=== PATIENT | female | born 1935 | race Caucasian/White ===

== ENCOUNTER 2023-09-29 12:40 | Inpatient (IN) | payer MEDICARE, SELFPAY ==
[2023-09-29 12:46] VITALS: BP 156/68; PULSE 70; RESP 16; TEMP 36.6; O2SAT 94; BMI 16.1
--- NOTE | 2023-09-29 12:47 | ED.VIS.FALL ---
HPI HPI - Fall History of Present Illness Chief Complaint: Fall Detail of Chief Complaint: Mechanical fall with injury to left elbow/forearm and complains of pain pel Informant: patient Occured/Mechanism Occurred: Hours Mechanism/Context: Yes trip Usually ambulates: Cane Pain/Injury Location: Pelvis Quality of Pain: Dull and Aching Current Severity: Mild Maximum Severity: Mild Worsened by: Slightly worse with palpation Relieved by: Nothing Associated Symptoms Associated Symptoms: Negative for Parasthesias, Weakness, Loss of function, Inability to ambulate, Loss of consciousness or Amnesia Narrative Narrative: Patient is 88-year-old woman. She and her recently moved from [place]. She grew up in [place]. They are returning to a assisted living facility. She states she did not hit her head. She denies neck pain. She denies left or right upper extremity pain. She denies pain in her right ankle, knee or hip. She denies headache. Denies visual, ocular auditory symptoms. She denies cardiac or respiratory symptoms. Tetanus Immunization: Unknown Prior similar symptoms: No Recent Illness/Hospitalization: No PFSH PFSH Medical History (Updated 09/29/23 @ 13:[address] Grant Whitley MD) Brain bleed CHF (congestive heart failure) Fall Presence of combination internal cardiac defibrillator (ICD) and pacemaker Allergy/AdvReac Type Severity Reaction Status Date / Time [id number] Reductase AdvReac Mild muscle Verified 09/29/23 12:42 Inhibitor aches Surgical History (Updated 09/29/23 @ 12:43 by Vania Hines) Stented coronary artery Social History Smoking Status: Never smoker ROS ROS ED Constitutional Constitutional ED: Denies chills or fever(s) Eyes Eyes: Denies blurry vision, change in vision or diplopia Cardiovascular Cardiovascular: Denies chest pain Respiratory/Chest Respiratory/Chest: Denies dyspnea Gastrointestinal Gastrointestinal: Denies nausea or vomiting Musculoskeletal Musculoskeletal: Denies back pain or neck pain Integumentary Reports other Details: Skin tear x 2 lateral left elbow. Neurologic Neurologic: Denies paresthesias or weakness Hematologic/Lymphatic Hematologic/Lymphatic: Denies easy bleeding or easy bruising EXAM Physical Exam Const Vital Signs: 09/29/23 12:46 09/29/23 12:49 Temperature 97.9 F Temperature Source Oral Pulse Rate 70 Respiratory Rate 16 Respiratory Effort Normal Non-Labored Respiratory Depth Normal Respiratory Pattern Normal Blood Pressure 156/68 H Blood Pressure Mean 97 Pulse Ox 94 Oxygen Delivery Method Room Air Positive well nourished and well developed General Appearance ED: well developed and NAD HEENT Reports normocephalic and TM's normal bilaterally atraumatic Eyes PERRL and EOMs intact bilaterally General Eye ED: Negative for pale conjunctiva or scleral icterus Neck full ROM and no lymphadenopathy Chest Wall inspection of chest normal Resp normal respiratory effort, no retractions and clear to auscultation bilaterally Cardio regular rate, regular rhythm, S1 normal heart sound, S2 normal heart sound and no murmurs Extremity Extremity Narrative: Skin tear that is 3 cm in diameter and 3.5 cm in diameter. The skin was unrolled and covered the defect. Nurse will apply appropriate dressing. Neuro oriented x3, CN's II-XII intact bilaterally, moves all extremities, no focal motor deficits and no sensory deficits noted Neuro Narrative: Patient has no clonus or Babinski sign. Renee Coma Scale: document GCS findings Spontaneous Obeys Commands Oriented 15 Sensorium / Orientation: alert Psych mental status grossly normal and thought process normal Skin Skin Narrative: Skin tear previously documented. MDM MDM MDM Narrative Medical decision making narrative: Will obtain x-ray of the pelvis and she has pain outpatient over the pubic symphysis region. There is no pain with logrolling of the right or left lower extremity. Tetanus was updated. Radiography Chest X-Ray - ED: 1 View and Read by ED Physician (Independently reviewed interpreted by me as negative for fracture. The femoral neck appears normal as well.) Discharge Plan Triage Chief Complaint: Fall ED Provider: Grant Whitley Dx/Rx/DC Orders Clinical Impression: Injury due to fall, ISTAP type 3 skin tear of left elbow, Contusion of pelvic region Instructions: Bruises (Contusions), ED Skin Tear (Skin Avulsion) Primary Care Provider: NOT,DEFINED Referrals: Viet Lovett MD [Non-Staff] - 3-5 Days NOT,DEFINED [Primary Care Provider] - Disposition Disposition: Home, Self Care
--- NOTE | 2023-09-29 12:54 | RAD_ITS ---
STUDY: X-RAY - PELVIS REASON FOR EXAM: Female, 88 years old. Injury/Pain -- Pain to palpation proximity of the pubic symphysis TECHNIQUE: One view of the pelvis was obtained. COMPARISON: None. FINDINGS: There is a normal bowel gas pattern. There is abundant stool. Normal visualized soft tissue structures. There is diffuse demineralization of the osseous structures. Normal bilateral iliac wings, sacroiliac joints and visualized sacrum. Normal visualized bilateral superior and inferior pubic rami. Normal pubic symphysis. Normal ischial tuberosities. Normal visualized right femoral head. Normal right acetabulum. Normal right hip joint. There are osteoarthritic changes of the left femoral head with marginal osteophyte formation. There is left femoral neck fracture with impaction and displacement of 0.7 cm. Normal left acetabulum. Normal left hip joint. RAD/Pelvis 1 or 2 Views IMPRESSION: Left femoral neck fracture. Electronically Signed: Enrrique Carty MD at 13:16 EDT ,
[2023-09-29] MEDS: Diphth,Pertuss(Acell),Tet Vac 0.5 ML Vial IM (12:56)
--- NOTE | 2023-09-29 13:33 | EKG12_ITS ---
Test Reason : Blood Pressure : / mmHG Vent. Rate : 070 BPM Atrial Rate : 070 BPM P-R Int : 190 ms QRS Dur : 148 ms QT Int : 496 ms P-R-T Axes : 000 -61 064 degrees QTc Int : 535 ms AV dual-paced rhythm Biventricular pacemaker detected Abnormal ECG Confirmed by JASBIR ZAZUETA, ANNELISE ([id number]), associate editor JC HAWKINS ([id number]) on 10/01/2023 9:43:24 AM Referred By: Confirmed By:ANNELISE MARTELL MD
--- NOTE | 2023-09-29 14:07 | HP.PCM.HOS_ITS ---
[facility] - General General Date of Admission: 09/29/23 Date of Service: 09/29/23 Chief Complaint: Fall with Left Hip Fracture. [facility] Narrative SHERRIE LOZANO, is a 88 F with a past medical history of essential hypertension, hyperlipidemia; with intolerance to statins, history of CAD; s/p stent, history of CHF; on Farxiga, history of arrhythmia on Amiodarone; s/p PPM/AICD, OA, legally blind and history of ICH; after fall (~6 weeks ago) with subsequent severe photosensitivity who presents to [facility] ER complaining of fall with Left hip fracture. Ms. Lozano reports her symptoms began approximately one hour prior to arrival when she lost her balance after her Left knee buckled and then gave out while she was using a walker to ambulate resulting in a mechanical fall with patient landing on her Left hip, elbow and forearm with LUE skin tears and subsequent inability to ambulate. She denies significant head trauma or LOC with her fall but she does admit to worsening pain with movement. She denies associated headache, chest pain, diaphoresis, nausea, vomiting, diaphoresis or other recent illness other than h er ICH after a fall ~6 weeks ago; with subsequent photosensitivity. She typically ambulates with a cane. Both the patient and her recently moved her from [place], [place] since she grew up in [place], [place]. In the ER her X-rays were positive for a Left femoral neck fracture with clinical evidence of Left lateral elbow skin tears x 2 and she was then admitted to the general medical floor for ongoing care for a stay that is expected to be greater than 48 hours. [facility] Medical History Brain bleed CHF (congestive heart failure) Fall ICD (implantable cardioverter-defibrillator) in place Legally blind Pacemaker Presence of combination internal cardiac defibrillator (ICD) and pacemaker Home Medications amiodarone 100 mg tablet 100 mg PO DAILY heart failure 09/29/23 [History Last Taken 09/29/23] aspirin 81 mg tablet,delayed release 81 mg PO DAILY cardiac 09/29/23 [History Last Taken 09/29/23] dapagliflozin propanediol 10 mg tablet (Farxiga) 10 mg PO DAILY renal failure 09/29/23 [History Last Taken 09/29/23] furosemide 40 mg tablet 40 mg PO DAILY heart failure 09/29/23 [History Last Taken 09/29/23] magnesium sulfate 100 mg capsule 400 mg PO DAILY muscle cramps 09/29/23 [History Last Taken 09/29/23] metoprolol succinate 25 mg tablet,extended release 24 hr 12.5 mg PO DAILY BP 09/29/23 [History Last Taken 09/29/23] sacubitril 24 mg-valsartan 26 mg tablet (Entresto) 1 tab PO BID heart 09/29/23 [History Last Taken 09/29/23] Allergy/AdvReac Type Severity Reaction Status Date / Time [id number] Reductase AdvReac Mild muscle Verified 09/29/23 12:42 Inhibitor aches Surgical History Stented coronary artery Social History Smoking Status: Never smoker ROS ROS Narrative Review of systems: Constitutional: Patient denies fever or chills. Eyes: Patient admits to severe photosensitivity since her fall with ICH and she is legally blind as per HPI but she denies acute visual changes or discharge from eyes. ENT: Patient denies runny nose, sore throat or ear pain. CV: Patient denies chest pain, palpitations or heart racing. Pulm: Patient denies SOB or cough. GI: Patient denies nausea, vomiting, diarrhea or constipation. MSK: Patient admits to Left hip pain made worse with movement as per HPI. Skin: Patient admits to skin tears x 2 to the Left lateral elbow. Neuro: Patient denies headache, paresthesias or photosensitivity. Hematology: Patient denies easy bleeding or easy bruisability. Allergy: Patient denies lip swelling, tongue swelling or urticaria. Psychology: Patient denies symptoms related to uncontrolled depression or anxiety. 14 point ROS otherwise negative except for positives noted above in HPI. Vital Signs Vital Signs Vital Signs: 09/29/23 12:46 09/29/23 12:49 Temperature 97.9 F Temperature Source Oral Pulse Rate 70 Respiratory Rate 16 Respiratory Effort Normal Non-Labored Respiratory Depth Normal Respiratory Pattern Normal Blood Pressure 156/68 H Blood Pressure Mean 97 Pulse Ox 94 Oxygen Delivery Method Room Air Weight Weight: 91 lb 0.815 oz Body Mass Index (BMI) 16.1 Physical Exam Const alert, oriented x3, no apparent distress, average body habitus and healthy appearing General Appearance: cooperative HEENT normocephalic, head/scalp atraumatic, hearing grossly normal bilaterally and moist oral mucous membranes Eyes PERRL and EOMs intact bilaterally Neck no lymphadenopathy and supple Resp normal respiratory effort, no retractions, no use of accessory muscles and clear to auscultation bilaterally Cardio regular rate and regular rhythm GI normal to inspection, nondistended, normoactive bowel sounds, soft to palpation, non-tender and non-distended Extremity normal to inspection and full ROM Skin Skin Narrative: Patient has a Left pelvic contusion and Left lateral elbow skin tears x 2. Neuro oriented x3, CN's II-XII intact bilaterally, moves all extremities and no focal motor deficits Sensorium / Orientation: awake, alert, oriented to person, oriented to place and oriented to time Speech: speech normal Motor Exam: strength 5/5 throughout Psych affect normal Results Medical Records Data Attestation: I reviewed the patient's medical records Lab / Micro Data Attestation: I reviewed the patient's lab results. 09/29/23 14:20 09/29/23 14:20 Imaging Radiology Impression Pelvis X-Ray 09/29/23 12:54 IMPRESSION: Left femoral neck fracture. Electronically Signed: Enrrique Carty MD at 13:16 EDT Reading Location ID and State: [address] [place] [address] , Service support , Assessment & Plan Assessment/Plan (1) Fracture of femoral neck, left, closed: QUALIFIERS: Encounter type: initial encounter Qualified Code(s): S72.002A - Fracture of unspecified part of neck of left femur, initial encounter for closed fracture (2) Contusion of pelvic region: QUALIFIERS: Encounter type: initial encounter Qualified Code(s): S30.0XXA - Contusion of lower back and pelvis, initial encounter (3) ISTAP type 3 skin tear of left elbow: (4) Injury due to fall: QUALIFIERS: Encounter type: initial encounter Qualified Code(s): W19.XXXA - Unspecified fall, initial encounter (5) 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 Left Femoral Neck Fracture after Mechanical Fall with pelvic contusion and Left lateral elbow skin tears x 2 - Admit to general medical floor. Place Drake and keep on strict bedrest. Give Tylenol prn for [id number] (level 1- 5/10) pain or fever. Give Morphine IV prn for severe (level 6-10/10) pain. Give Flexeril 5 mg PO TID prn for muscle spasms. Finally, the orthopedic [facility] on-call has been contacted by the ED physician with ORIF planned for at 8:00 AM tomorrow with help appreciated in advance. 2. History of ICH; after fall (~6 weeks ago) with subsequent severe photosensitivity complicating #1 - Noted. We will avoid preoperative blood thinners to minimize risk of recurrence. 3. Essential Hypertension - Continue home regimen plus give prn IV hydralazine for systolic blood pressure > 160 mmHg. 4. Hyperlipidemia; with intolerance to statins - Check Lipid Profile. 5. History of CAD; s/p stent - Noted. 6. History of CHF - Stable with no evidence of acute flare at this time. 7. History of arrhythmia; s/p PPM/AICD - Stable. 8. OA - Stable. Give Tylenol prn. 9. DVT prophylaxis - We will avoid preoperative blood thinners in patient's with traumatic fracture due to increased risk of bleeding complications. SCD on RLE only. Postoperative DVT prophylaxis to be chosen by orthopod. Total time: Approximately 55 minutes. Charges/Coding Visit Charges Inpatient E&M: 96011 Init Hosp L2
[2023-09-29] MEDS: Morphine 2 MG/ML Syringe IV ×2 (14:15→18:16)
[2023-09-29] MEDS: Ondansetron 4 MG/2 ML Vial IV (14:15)
[2023-09-29] MEDS: 0.9% Normal Saline (1000mL) 1,000 ML 150 ML IV (14:16)
--- NOTE | 2023-09-29 14:24 | ED.RN ---
per Dr. Yoder, OR tomorrow at 0800
--- NOTE | 2023-09-29 14:25 | RAD_ITS ---
STUDY: X-RAY CHEST REASON FOR EXAM: Female, 88 years old. Preop clearance , hip fracture TECHNIQUE: Single frontal view of the chest. COMPARISON: None. FINDINGS: Dual chamber pacemaker device on the left in satisfactory position. The lungs are clear and expanded. There is no demonstrated pleural abnormality. There is moderate cardiac enlargement. There are coronary endovascular stents. Normal mediastinum and aggie. Normal visualized pulmonary arteries. There is atherosclerotic calcification of the aortic arch. There is demineralization of the osseous structures. Normal visualized ribs, clavicles, and shoulders. There is no demonstrated abnormality of the visualized soft tissue structures of the upper abdomen. RAD/Chest 1 View (Portable) IMPRESSION: Cardiac enlargement. No focal infiltrate. Electronically Signed: Enrrique Carty MD at 14:48 EDT ,
--- NOTE | 2023-09-29 14:25 | RAD_ITS ---
STUDY: X-RAY - PELVIS AND LEFT HIP REASON FOR EXAM: Female, 88 years old. Injury/Pain TECHNIQUE: 2 views of the pelvis and hip. COMPARISON: None. FINDINGS: There is a normal bowel gas pattern. There is abundant stool. Normal visualized soft tissue structures. There is diffuse demineralization of the osseous structures. Normal bilateral iliac wings, sacroiliac joints and visualized sacrum. Normal visualized bilateral superior and inferior pubic rami. Normal pubic symphysis. Normal ischial tuberosities. Normal visualized right femoral head. Normal right acetabulum. Normal right hip joint. There are osteoarthritic changes of the left femoral head with marginal osteophyte formation. There is left femoral neck fracture with impaction and displacement of 0.7 cm. Normal left acetabulum. Normal left hip joint. RAD/HIP, UNI W/ Pelvis 2-3 Views IMPRESSION: Left femoral neck fracture. Electronically Signed: Enrrique Carty MD at 14:49 EDT ,
--- NOTE | 2023-09-29 14:27 | ED.RN ---
PT MEDICATED PER REQUEST BRENNAN CASAS, DELAY IN ABILITY TO GAIN IV ACCESS.IV ESTABLISHED, PT MEDICATED
[2023-09-29 14:31] LABS: Absolute Lymphocyte Count 1.31 X10^3/uL (0.83-4.51); Absolute Neutrophil Count 4.8 X10^3/uL (2.0-7.7); Basophil# 0.02 X10^3/uL; Basophil% 0.3 % (0-1); Eosinophil# 0.11 X10^3/uL; Eosinophils% 1.6 % (0-5); Hematocrit 45.6 % (37-47); Hemoglobin 14.8 g/dL (12.0-15.0); Lymphocyte # 1.31 X10^3/ul (0.83-4.51); Lymphocyte % 19.6 % (19-41); Mean Corp Hgb Conc 32.5 g/dL (32-36); Mean Corpuscular Hgb 30.6 pg (27.0-32.0); Mean Corpuscular Volume 94.4 fL (81-99); Mean Platelet Vol. 9.9 fl (6.2-12.0); Monocyte# 0.39 X10^3/uL; Monocyte% 5.8 % (0-10); NRBC Flagged by Analyzer 0 % (0-5); Neutrophil % 71.8 % (47-70); Platelet Count 314 K/mm3 (150-450); RBC Distribution Width CV 15.9 % (11.6-14.6); RBC Distribution Width SD 55.5 fl (35.1-43.9); Red Blood Count 4.83 M/mm3 (4.2-5.4); White Blood Count 6.7 K/mm3 (4.4-11.0)
[2023-09-29 14:46] VITALS: BP 163/70; PULSE 70; RESP 14; TEMP 36.7; O2SAT 99
[2023-09-29 15:01] LABS: Anion Gap 3 (5-15); BUN 36 mg/dL (7-18); Calcium,Total 9.6 mg/dL (8.5-10.1); Chloride 106 mmol/L (98-107); EST Glomerular Filtration Rate 56 mL/min (>60); Est Glom Filt Rate - Afr Amer 67 mL/min (>60); Estimated Creatinine Clearance 25.84 ml/min; Glucose 93 mg/dL (74-106); Potassium 4.9 mmol/L (3.5-5.1); Sodium Level 140 mmol/L (136-145)
[2023-09-29 15:25] VITALS: BMI 17.4
[2023-09-29 15:30] VITALS: BP 130/60; PULSE 70; RESP 18; TEMP 36.9; O2SAT 93
[2023-09-29] MEDS: Acetaminophen 325 MG Tablet 650 MG PO (15:50)
[2023-09-29] MEDS: 0.9% Normal Saline (1000mL) 1,000 ML 70 ML IV (15:50)
[2023-09-29 18:10] VITALS: BP 133/63; PULSE 69; RESP 18; TEMP 37.3; O2SAT 93
[2023-09-29] MEDS: 0.9% Saline Lock 10 ML Syringe IV (18:16)
[2023-09-29 20:05] LABS: Cholesterol 195 mg/dL (200); High Density Lipoprotein 54 mg/dL; Triglycerides 87 mg/dL; Very Low Density Lipoprotein 17 mg/dL (5-40)
[2023-09-29] MEDS: HYDROmorphone 0.5 MG/0.5 ML SYRINGE IV (20:57)
[2023-09-29 21:30] VITALS: BP 112/58; PULSE 62; RESP 16; TEMP 36.6; O2SAT 93
[2023-09-29] MEDS: Acetaminophen 500 MG Tablet 1000 MG PO (21:45)
[2023-09-29] MEDS: oxyCODONE 5 MG Tablet PO (23:23)
[2023-09-30] VITALS (14 sets, daily range): BP systolic 100–149; BP diastolic 50–75; PULSE 69–92; RESP 14–18; TEMP 36.4–37; O2SAT 85–97; BMI 17.4
[2023-09-30] MEDS: 0.9% Normal Saline (1000mL) 1,000 ML 70 ML IV (04:13)
[2023-09-30 04:50] LABS: Absolute Lymphocyte Count 0.99 X10^3/uL (0.83-4.51); Absolute Neutrophil Count 6.4 X10^3/uL (2.0-7.7); Basophil# 0.04 X10^3/uL; Basophil% 0.5 % (0-1); Eosinophil# 0.11 X10^3/uL; Eosinophils% 1.3 % (0-5); Hematocrit 41.6 % (37-47); Hemoglobin 12.8 g/dL (12.0-15.0); Lymphocyte # 0.99 X10^3/ul (0.83-4.51); Mean Corp Hgb Conc 30.8 g/dL (32-36); Mean Corpuscular Hgb 30.3 pg (27.0-32.0); Mean Corpuscular Volume 98.3 fL (81-99); Mean Platelet Vol. 9.7 fl (6.2-12.0); Monocyte# 0.65 X10^3/uL; Monocyte% 7.9 % (0-10); NRBC Flagged by Analyzer 0 % (0-5); Neutrophil # 6.42 X10^3/uL (2.7-7.7); Neutrophil % 77.8 % (47-70); Platelet Count 257 K/mm3 (150-450); RBC Distribution Width CV 16.6 % (11.6-14.6); RBC Distribution Width SD 60.2 fl (35.1-43.9); Red Blood Count 4.23 M/mm3 (4.2-5.4); White Blood Count 8.3 K/mm3 (4.4-11.0)
[2023-09-30 05:41] LABS: ALB/GLOB Ratio 0.9 RATIO (0.9-2.4); AST(SGOT) 20 U/L (15-37); Alanine Aminotransfer ALT/SGPT 23 U/L (13-56); Albumin, Serum 2.9 g/dL (3.2-5.0); Alkaline Phosphatase 68 U/L (45-117); Anion Gap 2 (5-15); BUN 35 mg/dL (7-18); BUN/Creat Ratio 35.4 RATIO (10-20); Calcium,Total 8.5 mg/dL (8.5-10.1); Chloride 112 mmol/L (98-107); Creatinine, Serum 0.99 mg/dL (0.55-1.02); EST Glomerular Filtration Rate 56 mL/min (>60); Est Glom Filt Rate - Afr Amer 68 mL/min (>60); Estimated Creatinine Clearance 28.12 ml/min; Globulin 3.2 g/dL (2.2-4.2); Glucose 122 mg/dL (74-106); Magnesium 2.9 mg/dL (1.6-2.6); Phosphorus 3.8 mg/dL (2.5-4.9); Potassium 4.6 mmol/L (3.5-5.1); Protein, Total 6.1 g/dL (6.4-8.2); Sodium Level 140 mmol/L (136-145)
--- NOTE | 2023-09-30 07:46 | NURSING ---
talked with housekeeping laundry worker Daniel regarding in ability to obtain any information regarding patient's defibulator/pacer.
--- NOTE | 2023-09-30 07:52 | PN.HOSP_ITS ---
Reason for Visit Reason for Visit: Diagnoses Contusion of lower back and pelvis, initial encounter (09/29/23) Laceration without foreign body of left elbow, initial encounter (09/29/23) Fracture of unspecified part of neck of left femur, initial encounter for closed fracture (09/29/23) Unspecified fall, initial encounter (09/29/23) Personal history of other diseases of the circulatory system (09/29/23) Presence of automatic (implantable) cardiac defibrillator (09/29/23) Objective Data Objective Data Vital Signs: Vital Signs Temp Pulse Resp BP Pulse Ox O2 Del Method 97.8 F 70 16 132/63 H 97 Room Air 09/30/23 03:00 09/30/23 03:00 09/30/23 03:00 09/30/23 03:00 09/30/23 03:00 09/30/23 03:00 Oxygen Delivery Method Room Air Weight: 98 lb 1.691 oz Body Mass Index (BMI) 17.4 Intake & Output: Intake and Output for Last 24 Hours 09/28/23 09/29/23 09/30/23 23:59 23:59 23:59 Intake Total 235 / 235 866.83 / 866.83 Output Total 300 / 550 500 / 500 Balance -65 / -315 366.83 / 366.83 Lab / Micro Data 09/30/23 04:32 09/30/23 04:32 Labs: Laboratory Results - last 24 hr 09/29/23 14:20: WBC 6.7, RBC 4.83, Hgb 14.8, Hct 45.6, MCV 94.4, MCH 30.6, MCHC 32.5, RDW Std Deviation 55.5 H, RDW Coeff of Marie 15.9 H, Plt Count 314, MPV 9.9, Immature Gran % (Auto) 0.900, Neut % (Auto) 71.8 H, Lymph % (Auto) 19.6, [place] % (Auto) 5.8, Eos % (Auto) 1.6, Baso % (Auto) 0.3, Absolute Neuts (auto) 4.8, Absolute Lymphs (auto) 1.31, Nucleated RBC % 0, Sodium 140, Potassium 4.9, Chloride 106, Carbon Dioxide 31.0, Anion Gap 3 L, BUN 36 H, Creatinine 1.00, Estim Creat Clear Calc 25.84, Est GFR (MDRD) Af Amer 67, Est GFR (MDRD) Non-Af 56 L, BUN/Creatinine Ratio 36.0 H, Glucose 93, Calcium 9.6, Blood Type O POSITIVE, Antibody Screen NEGATIVE 09/29/23 19:00: Triglycerides 87, Cholesterol 195, LDL Cholesterol 124, VLDL Cholesterol 17, HDL Cholesterol 54 09/30/23 04:32: WBC 8.3, RBC 4.23, Hgb 12.8, Hct 41.6, MCV 98.3, MCH 30.3, MCHC 30.8 L D, RDW Std Deviation 60.2 H, RDW Coeff of Marie 16.6 H, Plt Count 257, MPV 9.7, Immature Gran % (Auto) 0.500, Neut % (Auto) 77.8 H, Lymph % (Auto) 12.0 L, [place] % (Auto) 7.9, Eos % (Auto) 1.3, Baso % (Auto) 0.5, Absolute Neuts (auto) 6.4, Absolute Lymphs (auto) 0.99, Nucleated RBC % 0, Sodium 140, Potassium 4.6, Chloride 112 H, Carbon Dioxide 26.0, Anion Gap 2 L, BUN 35 H, Creatinine 0.99, Estim Creat Clear Calc 28.12, Est GFR (MDRD) Af Amer 68, Est GFR (MDRD) Non-Af 56 L, BUN/Creatinine Ratio 35.4 H, Glucose 122 H, Calcium 8.5, Phosphorus 3.8, Magnesium 2.9 H, Total Bilirubin 0.60, AST 20, ALT 23, Alkaline Phosphatase 68, Total Protein 6.1 L, Albumin 2.9 L, Globulin 3.2, Albumin/Globulin Ratio 0.9 Radiography Diagnostic Testing: Radiology Impression Pelvis X-Ray 09/29/23 12:54 IMPRESSION: Left femoral neck fracture. Electronically Signed: Enrrique Carty MD at 13:16 EDT , Chest X-Ray 09/29/23 14:25 IMPRESSION: Cardiac enlargement. No focal infiltrate. Electronically Signed: Enrrique Carty MD at 14:48 EDT , Hip/Pelvis X-Ray 09/29/23 14:25 IMPRESSION: Left femoral neck fracture. Electronically Signed: Enrrique Carty MD at 14:49 EDT , Physical Exam Narrative Seen and examined. History was taken from the patient and Dr. Júnior Hays who is POA. Patient is stated she fell down walking on walker with left knee buckling. She denies LOC or head injury. Complain of pain over the distal half of thigh not at hip joint. Physical exam General: Alert, Oriented x3, Cooperative HEENT: Atraumatic, PERRLA, EOMI, Normocephalic. Photosensitivity Oral: Oral mucosa dry. No Gingival or Mucosal Lesions/ Ulcerations Neck: Supple, No JVD, Negative Carotid Bruits Chest wall/Lungs: Air entry diminished in bilateral lung bases. No crepitation/rhonchi Cardiovascular: Regular rate, Regular Rhythm, Normal S1, Normal S2, No M/G/R Abdomen: Bowel Sounds Present, Soft, Non Tender, Non-Distended : No dysuria. No renal angle tenderness. No suprapubic tenderness. Extremities: No edema, Capillary Refill Less than 3 Seconds Skin: Left pelvic contusion and Left lateral elbow, 2 skin tears. No active bleeding Musculoskeletal: LLE externally rotated flexed and abducted. Tenderness present on the greater trochanter and posterior aspect of hip. Neurological: Cranial nerves II-XII grossly intact, DTR 2+/4. No acute focal neurological deficit. Psych/Mental Status: Flat affect. Mild cognitive deficits. Assessment & Plan Assessment/Plan (1) Fracture of femoral neck, left, closed: QUALIFIERS: Encounter type: initial encounter Qualified Code(s): S72.002A - Fracture of unspecified part of neck of left femur, initial encounter for closed fracture (2) Contusion of pelvic region: QUALIFIERS: Encounter type: initial encounter Qualified Code(s): S30.0XXA - Contusion of lower back and pelvis, initial encounter (3) ISTAP type 3 skin tear of left elbow: (4) Presence of combination internal cardiac defibrillator (ICD) and pacemaker: PLAN: Plan 88-year-old female was admitted to [facility] floor after she lost her balance, left knee buckled and gave out while using walker to ambulate resulting in mechanical fall on left hip elbow and forearm. She was found left hip fracture on imaging 1. Left Femoral Neck Fracture, impacted with mild displacement due to mechanical Fall with pelvic contusion and Left lateral elbow skin tears x 2 - Admit to general medical floor. Has Drake catheter. Give Tylenol prn for [id number] (level 1-5/10) pain or fever. Give Morphine IV prn for severe (level 6-10/10) pain. Give Flexeril 5 mg PO TID prn for muscle spasms. Hip and pelvis x-ray directly reviewed. Left humeral neck fracture with impaction with mild displacement 0.7 cm. Normal left acetabulum. 09/29: Perioperative surgical risk calculated. Patient within average risk of serious complication, any complication, return to the OR and discharged to SNF. Patient is above average for pneumonia, UTI, sepsis and dehydration. Overall patient has 4 MET functional activity doing her most of the work herself on walker. She is moderate perioperative risk for medical and surgical complications Patient is scheduled for orthopedic surgery finally, the orthopedic surgeon on- call has been contacted by the ED physician with ORIF planned for at 8:00 AM tomorrow with help appreciated in advance. 2. History of ICH; after fall (~6 weeks ago) with subsequent severe photosensitivity. Hold preoperative blood thinners to minimize risk of recurrence. 3. Essential Hypertension - Continue home regimen plus give prn IV hydralazine for systolic blood pressure > 160 mmHg. 4. Hyperlipidemia; with intolerance to statins -fasting profile within normal limit. LDL 124, HDL 54. Triglycerides 87. 5. History of CAD; s/p stent - Noted. Chest x-ray initially reviewed and shows AICD, triple lead. No pulmonary venous congestion or pulmonary edema. Patient does not have chest pain or shortness of breath. Twelve-lead EKG was reviewed shows AV dual paced rhythm at 70 bpm. QRS and QTc prolonged expected from defibrillator. 6. History of CHF - Stable with no evidence of acute flare at this time. Chronic systolic heart failure as per history from POA, Dr. Júnior Hays which states he has EF about 30%. No documentation available. She moved from [place] and has not established treatment supervisor here but planning to establish with Dr. Hawthorne. Clinically, not in acute heart failure. 2D echo ordered for tomorrow 7. History of arrhythmia; s/p PPM/AICD -no acute issues 8. OA - Stable. Give Tylenol prn. 9. DVT prophylaxis - We will avoid preoperative blood thinners in patient's with traumatic fracture due to increased risk of bleeding complications. SCD on RLE only. Postoperative DVT prophylaxis to be chosen by orthopod. Laboratory Results 09/29/23 14:20: WBC 6.7, RBC 4.83, Hgb 14.8, Hct 45.6, MCV 94.4, MCH 30.6, MCHC 32.5, RDW Std Deviation 55.5 H, RDW Coeff of Marie 15.9 H, Plt Count 314, MPV 9.9, Immature Gran % (Auto) 0.900, Neut % (Auto) 71.8 H, Lymph % (Auto) 19.6, [place] % (Auto) 5.8, Eos % (Auto) 1.6, Baso % (Auto) 0.3, Absolute Neuts (auto) 4.8, Absolute Lymphs (auto) 1.31, Nucleated RBC % 0, Sodium 140, Potassium 4.9, Chloride 106, Carbon Dioxide 31.0, Anion Gap 3 L, BUN 36 H, Creatinine 1.00, Estim Creat Clear Calc 25.84, Est GFR (MDRD) Af Amer 67, Est GFR (MDRD) Non-Af 56 L, BUN/Creatinine Ratio 36.0 H, Glucose 93, Calcium 9.6, Blood Type O POSITIVE, Antibody Screen NEGATIVE 09/29/23 19:00: Triglycerides 87, Cholesterol 195, LDL Cholesterol 124, VLDL Cholesterol 17, HDL Cholesterol 54 09/30/23 04:32: WBC 8.3, RBC 4.23, Hgb 12.8, Hct 41.6, MCV 98.3, MCH 30.3, MCHC 30.8 L D, RDW Std Deviation 60.2 H, RDW Coeff of Marie 16.6 H, Plt Count 257, MPV 9.7, Immature Gran % (Auto) 0.500, Neut % (Auto) 77.8 H, Lymph % (Auto) 12.0 L, [place] % (Auto) 7.9, Eos % (Auto) 1.3, Baso % (Auto) 0.5, Absolute Neuts (auto) 6.4, Absolute Lymphs (auto) 0.99, Nucleated RBC % 0, Sodium 140, Potassium 4.6, Chloride 112 H, Carbon Dioxide 26.0, Anion Gap 2 L, BUN 35 H, Creatinine 0.99, Estim Creat Clear Calc 28.12, Est GFR (MDRD) Af Amer 68, Est GFR (MDRD) Non-Af 56 L, BUN/Creatinine Ratio 35.4 H, Glucose 122 H, Calcium 8.5, Phosphorus 3.8, Magnesium 2.9 H, Total Bilirubin 0.60, AST 20, ALT 23, Alkaline Phosphatase 68, Total Protein 6.1 L, Albumin 2.9 L, Globulin 3.2, Albumin/Globulin Ratio 0.9 Clinical Impression(s) from Imaging Studies Pelvis X-Ray 09/29/23 12:54 IMPRESSION: Left femoral neck fracture. Electronically Signed: Enrrique Carty MD at 13:16 EDT , Chest X-Ray 09/29/23 14:25 IMPRESSION: Cardiac enlargement. No focal infiltrate. Electronically Signed: Enrrique Carty MD at 14:48 EDT Reading Location ID and State: [facility] / [place] , Service support , Hip/Pelvis X-Ray 09/29/23 14:25 IMPRESSION: Left femoral neck fracture. Electronically Signed: Enrrique Carty MD at 14:49 EDT , Charges/Coding Addendum Addendum: Total time of the visit including total time spent in counseling or coordination of care, (more than 50% of the total time, spent in obtaining medical informat ion from nurses and other ancillary care providers,explaining to the patient about labs, imaging, diagnosis and management of active complex medical conditions), discussion with the POA, orthopedic surgery, review of labs and imaging is 40 minutes. Visit Charges Inpatient E&M: 57402 Subs Hosp L3
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
[2023-09-30] MEDS: Furosemide 40 MG Tablet PO (08:33)
[2023-09-30] MEDS: Metoprolol(XL)Succ 25 MG Tablet 12.5 MG PO (08:33)
[2023-09-30] MEDS: oxyCODONE 5 MG Tablet PO (08:33)
[2023-09-30] MEDS: Amiodarone 200 MG Tablet 100 MG PO (08:33)
--- NOTE | 2023-09-30 10:46 | CON.PCM_ITS ---
Assessment & Plan Assessment/Plan (1) Fracture of femoral neck, closed: QUALIFIERS: Encounter type: initial encounter Laterality: left Qualified Code(s): S72.002A - Fracture of unspecified part of neck of left femur, initial encounter for closed fracture PLAN: Plan Discussion was had with the patient regards to her left femoral neck fracture risk benefits alternatives of the surgery were reviewed including risk of bleeding infection nerve artery tissue damage need for further surgery continued pain and postoperative expectations she wishes to proceed with left hip hemiarthroplasty and informed consent was signed, antibiotics and tranexamic acid were ordered on-call to the OR. HPI Consult Data Date of Consult: 09/30/23 HPI Narrative HPI Narrative: SHERRIE HUMMEL, is a 88 F community ambulator with walker who lives with her who presents after ground-level fall where her knee buckled landing onto her left hip immediately had significant groin pain and inability ambulate x- rays taken in the emergency room department demonstrated displaced femoral neck fracture. [facility] Medical History Brain bleed CHF (congestive heart failure) Fall ICD (implantable cardioverter-defibrillator) in place Legally blind Pacemaker Presence of combination internal cardiac defibrillator (ICD) and pacemaker Home Medications amiodarone 100 mg tablet 100 mg PO DAILY heart failure 09/29/23 [History Last Taken 09/29/23] aspirin 81 mg tablet,delayed release 81 mg PO DAILY cardiac 09/29/23 [History Last Taken 09/29/23] dapagliflozin propanediol 10 mg tablet (Farxiga) 10 mg PO DAILY renal failure 09/29/23 [History Last Taken 09/29/23] furosemide 40 mg tablet 40 mg PO DAILY heart failure 09/29/23 [History Last Taken 09/29/23] magnesium sulfate 100 mg capsule 400 mg PO DAILY muscle cramps 09/29/23 [History Last Taken 09/29/23] metoprolol succinate 25 mg tablet,extended release 24 hr 12.5 mg PO DAILY BP 09/29/23 [History Last Taken 09/29/23] sacubitril 24 mg-valsartan 26 mg tablet (Entresto) 1 tab PO BID heart 09/29/23 [History Last Taken 09/29/23] Allergy/AdvReac Type Severity Reaction Status Date / Time [id number]-[id number] Reductase AdvReac Mild muscle Verified 09/29/23 12:42 Inhibitor aches Surgical History Stented coronary artery Social History Smoking Status: Never smoker Physical Exam Const alert, oriented x3 and no apparent distress Extremity Extremity Narrative: Positive logroll. There is mild swelling about the knee no joint effusion nontender she is nontender in her thigh or leg or ankle she is able to plantarflex dorsiflex her ankle intact sensation to light touch, patient is very frail skin Lab / Micro Data 09/30/23 04:32 09/30/23 04:32 Labs: Laboratory Results - last 24 hr 09/29/23 14:20: WBC 6.7, RBC 4.83, Hgb 14.8, Hct 45.6, MCV 94.4, MCH 30.6, MCHC 32.5, RDW Std Deviation 55.5 H, RDW Coeff of Marie 15.9 H, Plt Count 314, MPV 9.9, Immature Gran % (Auto) 0.900, Neut % (Auto) 71.8 H, Lymph % (Auto) 19.6, [place] % (Auto) 5.8, Eos % (Auto) 1.6, Baso % (Auto) 0.3, Absolute Neuts (auto) 4.8, Absolute Lymphs (auto) 1.31, Nucleated RBC % 0, Sodium 140, Potassium 4.9, Chloride 106, Carbon Dioxide 31.0, Anion Gap 3 L, BUN 36 H, Creatinine 1.00, Estim Creat Clear Calc 25.84, Est GFR (MDRD) Af Amer 67, Est GFR (MDRD) Non-Af 56 L, BUN/Creatinine Ratio 36.0 H, Glucose 93, Calcium 9.6, Blood Type O POSITIVE, Antibody Screen NEGATIVE 09/29/23 19:00: Triglycerides 87, Cholesterol 195, LDL Cholesterol 124, VLDL Cholesterol 17, HDL Cholesterol 54 09/30/23 04:32: WBC 8.3, RBC 4.23, Hgb 12.8, Hct 41.6, MCV 98.3, MCH 30.3, MCHC 30.8 L D, RDW Std Deviation 60.2 H, RDW Coeff of Marie 16.6 H, Plt Count 257, MPV 9.7, Immature Gran % (Auto) 0.500, Neut % (Auto) 77.8 H, Lymph % (Auto) 12.0 L, [place] % (Auto) 7.9, Eos % (Auto) 1.3, Baso % (Auto) 0.5, Absolute Neuts (auto) 6.4, Absolute Lymphs (auto) 0.99, Nucleated RBC % 0, Sodium 140, Potassium 4.6, Chloride 112 H, Carbon Dioxide 26.0, Anion Gap 2 L, BUN 35 H, Creatinine 0.99, Estim Creat Clear Calc 28.12, Est GFR (MDRD) Af Amer 68, Est GFR (MDRD) Non-Af 56 L, BUN/Creatinine Ratio 35.4 H, Glucose 122 H, Calcium 8.5, Phosphorus 3.8, Magnesium 2.9 H, Total Bilirubin 0.60, AST 20, ALT 23, Alkaline Phosphatase 68, Total Protein 6.1 L, Albumin 2.9 L, Globulin 3.2, Albumin/Globulin Ratio 0.9 Imaging Radiology Impression Pelvis X-Ray 09/29/23 12:54 IMPRESSION: Left femoral neck fracture. Electronically Signed: Enrrique Carty MD at 13:16 EDT Reading Location ID and State: [address] [place] [address] , Service support , Chest X-Ray 09/29/23 14:25 IMPRESSION: Cardiac enlargement. No focal infiltrate. Electronically Signed: Enrrique Carty MD at 14:48 EDT Reading Location ID and State: [address] [place] [address] , Service support , Hip/Pelvis X-Ray 09/29/23 14:25 IMPRESSION: Left femoral neck fracture. Electronically Signed: Enrrique Carty MD at 14:49 EDT Reading Location ID and State: [address] [place] [address] , Service support ,
[2023-09-30] MEDS: Cefazolin 2 GM in 0.9% Normal Saline (100mL Bag) 100 ML IV (11:00)
--- NOTE | 2023-09-30 11:02 | NURSING ---
Pt sent to OR
[2023-09-30] MEDS: TRANEXAMIC ACID 1,000 MG in 0.9% Normal Saline (100mL Bag) 100 ML 440 MG IV (11:15)
--- NOTE | 2023-09-30 12:43 | ECHOD_ITS ---
Reason For Study: Dyspnea/SOB Procedure This was a 2D Doppler, Color Flow transthoracic echocardiogram. Exam performed portable in patient room. Left Ventricle Normal LV size. The estimated ejection fraction is 40-45 %. There is evidence of diastolic dysfunction. Hypokinesis of the apex, lateral wall and posterior salazar. Right Ventricle Normal RV size. ICD or pacer leads identified within the right ventricle. Normal systolic function. Atria The left and right atria are normal. ICD or pacer leads identified within the right atrium. No doppler evidence for ASD. Mitral Valve There is no mitral valve stenosis. No mitral valve insufficiency. Tricuspid Valve There is no tricuspid stenosis. Trivial tricuspid valve insufficiency. Pulmonary artery systolic pressure is 45 mmHg. Aortic Valve Trisinus/trileaflet aortic valve. Aortic sclerosis, no stenosis. There is no aortic stenosis. Mild (1+) aortic valve insufficiency. Pulmonic Valve There is no pulmonic valvular stenosis. Trivial pulmonic valve insufficiency. Great Vessels Normal aortic root. Pericardium/Pleural No pericardial effusion. MMode/2D Measurements & Calculations LVIDd: 4.4 cm IVSd: 1.4 cm Ao root diam: 3.2 cm LVIDs: 3.8 cm LVPWd: 1.4 cm LA dimension: 3.0 cm RVDd: 4.5 cm FS: 12.8 % LAV(MOD-bp): 42.4 ml LA A4 area: 16.2 cm2 RA A4 area: 14.5 cm2 LAV(MOD-bp) Indexed: 29.7 ml/m2 LAV(MOD-sp2): 41.0 ml LAV(MOD-sp4): 41.5 ml TAPSE: 2.0 cm Time Measurements MV dec time: 0.34 sec Doppler Measurements & Calculations MV E max nic: 50.9 cm/sec Lat Peak E' Nic: 4.0 cm/sec Med Peak E' Nic: 5.6 cm/sec MV A max nic: 110.0 cm/sec E/E' lat: 12.6 E/E' med: 9.0 MV E/A: 0.46 MV V2 max: 134.7 cm/sec MV P1/2t max nic: 65.3 cm/sec Ao V2 max: 183.9 cm/sec MV max P.3 mmHg MV P1/2t: 125.2 msec Ao max P.5 mmHg MV V2 mean: 65.4 cm/sec Ao V2 mean: 137.5 cm/sec MV mean P.1 mmHg MV dec slope: 152.8 cm/sec2 Ao mean P.5 mmHg MV V2 VTI: 29.5 cm MVA(P1/2t): 1.8 cm2 Ao V2 VTI: 45.0 cm AV (velocity ratio): 0.40 AI max nic: 383.0 cm/sec LV V1 max: 78.8 cm/sec PA V2 max: 70.3 cm/sec AI max P.7 mmHg LV V1 max P.5 mmHg PA V2 mean: 50.8 cm/sec LV V1 mean P.5 mmHg AI dec slope: 314.2 cm/sec2 LV V1 mean: 57.2 cm/sec AI P1/2t: 357.0 msec LV V1 VTI: 18.1 cm TR max nic: 315.4 cm/sec TR max P.8 mmHg ECHO/Echo Complete Interpretation Summary The estimated ejection fraction is 40-45 %. There is evidence of diastolic dysfunction. Mild (1+) aortic valve insufficiency. Hypokinesis of the apex, lateral wall and posterior salazar Ordering Physician: Anson Waite Performed By: Vipul Sotelo RCS
--- NOTE | 2023-09-30 12:59 | PCM.OP.BLANK ---
Operative Report Preoperative diagnosis: Left hip femoral neck fracture displaced Postoperative diagnosis: Same Procedure: Left hip hemiarthroplasty Implants: [place] Accolade II stem size 2 132 degree neck angle 0 neck length 50 mm outer diameter bipolar head Anesthesia: General l EBL: 150 cc Complications: None Condition: Stable to PACU Indication for procedure: This is a 88-year-old female patient with ground-level fall sustaining a left femoral neck fracture that was displaced. plans for definitive hemiarthroplasty were discussed including risks benefits and alternatives of the procedure were reviewed with the patient including risk of bleeding infection nerve artery tissue damage need for further surgery continue pain postoperative hip precaution restrictions leg length discrepancy and dislocation. Procedure: Patient was met in the preoperative holding area once again the operative extremity was identified by both patient and physician and was marked. Patient was met by anesthesia and brought to the operating room where anesthesia was started . The patient was then positioned in the lateral decubitus position on a well-padded pegboard with an axillary roll. All bony prominences were checked and padded. The patient was prepped and draped in the usual sterile fashion. A timeout was called to ensure the proper patient procedure and extremity were being contemplated. Anatomic landmarks were palpated and marked for a standard posterior lateral approach. A timeout was called to ensure the proper patient procedure and extremity were being contemplated. A 10 blade scalpel was used to make a posterior incision through the skin and subcutaneous tissue. In retractors were used and electrocautery was used to maintain meticulous hemostasis and dissect full-thickness flaps until the gluteal fascia was reached. The gluteal fascia was incised in line with the gluteal fibers. The bursal tissue was then freed from the underside and a Charnley retractor was placed. The fatpad was elevated off of the external rotators with electrocautery and the external rotators were dissected off of the greater trochanter including the piriformis and were tagged with #1 Ethibond for later repair. The joint capsule opened with posterior trapdoor technique. A femoral neck cutting guide was used to teresa the neck with a Bovie and an oscillating saw was used to complete the femoral neck cut. the fracture was visualized and with the use of a corkscrew and a skid the femoral head was removed and sized. We then trialed with the matching sizes . Hohmann was placed around the lesser trochanter. A femoral elevator was used. As well as a pointed wide Hohmann around the lesser trochanter and a Hohmann to help retract the gluteus medius. A box chisel was used to remove excess lateral neck followed by a canal finder and a lateralizing reamer. This was followed by sequential broaches. Attention was made of the version within the canal. Once the final broach was seated we then trialed and reduced the hip it was determined that a 132 degree neck angle with a 0 neck length was the appropriate size. We then checked stability with shuck testing as well as flexion and interminal rotation then proceeded with hip extension and checked leg lengths at the knees and heels. At this point trials were removed. The femoral stem was inserted. We re-trialed and then proceeded to impact the femoral head onto the Benedict taper. We then surgically reduce the hip check stability again and leg lengths and were satisfied. irricept rinse was allowed to sit for 1 minutes while everyone changed their gloves. Thorough irrigation was performed. Followed by closure of the external rotators with #2 FiberWire followed by closure of gluteal fascia with #1 Ethibond. 0 Vicryl fat stitches and 2-0 Vicryl subcutaneous stitches and juan in the skin. Dressing was applied in the form of silverlon dressing and an abduction pillow was placed. Patient tolerated the procedure well there was no intraoperative complications all counts were correct and the patient was brought back to the PACU in stable condition
--- NOTE | 2023-09-30 13:10 | RAD_ITS ---
STUDY: X-RAY - PELVIS AND LEFT HIP REASON FOR EXAM: Female, 88 years old. Postop from hip replacement surgery TECHNIQUE: 2 views of the pelvis and hip. COMPARISON: Yesterday FINDINGS: Patient is postop from left hip replacement surgery. Components demonstrate anatomic alignment. No plain film evidence of postoperative complication. Normal postoperative soft tissue swelling and subcutaneous emphysema. Right hip shows anatomic alignment with age consistent degenerative narrowing RAD/Hip Min 2 Views (Portable) IMPRESSION: Replaced left hip joint demonstrates anatomic alignment, no plain film evidence of postoperative complications Electronically Signed: Bryan Tran MD at 13:37 EDT ,
[2023-09-30] MEDS: Lactated Ringers 1,000 ML 60 ML IV (13:43)
[2023-09-30 14:17] LABS: Bedside Glucose 92 mg/dL (74-106)
[2023-09-30] MEDS: 0.9% Saline Lock 10 ML Syringe IV (14:20)
[2023-09-30] MEDS: Cefazolin 1 GM/50 ML BAG IV ×2 (14:20→20:59)
[2023-09-30] MEDS: Calcium Carbonate 500 MG Tablet PO (16:17)
--- NOTE | 2023-09-30 20:00 | NURSING ---
pt very confused at this time. po 85% on ra. 02 at 2lnc applied. po back up to 100%
[2023-09-30] MEDS: Acetaminophen 500 MG Tablet 1000 MG PO (20:59)
[2023-10-01] VITALS (8 sets, daily range): BP systolic 111–139; BP diastolic 45–64; PULSE 67–70; RESP 16–18; TEMP 36.4–36.8; O2SAT 93–100; BMI 18.1
--- NOTE | 2023-10-01 | HIP_PTH ---
PATIENT: SHERRIE HUMMEL LOC: [facility]3 U#:[id number] AGE/SX: 88/F ROOM: MI325 RE09/29/[address]: Dr. Tammi Frost DO : 1935 BED: 1 DIS: 10/10/2023 SPEC #: [id number] RECD: 10/01/23 08:25 STATUS: JULIANN MOCK #: [id number] GARRETT: 10/01/23 00:[address]: mAol Yoder DEPT: SURGICAL PATHOLOGY RECD BY: Leonardo Whelan ENTERED: 10/01/23 10:55 SP TYPE: TOTAL HIP OTHR DR: DO Dr. Anson Ledbetter MD Dr. William Lago, MD Tissues: Hip, NOS Procedures: Decalcification bone/plaque Surgery Specimen Level IV Comments: @ Ordering doctor for DEC edited from to @ by BRENTON at 10/01/23 1125 @ Ordering doctor for SUIV edited from to @ by BRENTON at 10/01/23 1125 @ Submitting doctor edited from to @ by BRENTON at 10/01/23 1125 HEADER OPERATION: Hemiarthroplasty, hip PRE-OP DIAGNOSIS: Fracture of femoral neck, left, closed TISSUE SUBMITTED: Femoral head MICROSCOPIC DIAGNOSIS Bone and tissue of left hip, total hip resection: Severe degenerative joint disease. Consistent with organizing fracture callus. AM:mr 10/05/23 MICROSCOPIC DESCRIPTION Slides are reviewed. GROSS DESCRIPTION Received is one container labeled with the patient's name and designated femoral head and tissue. The specimen consists of a garcia femoral head measuring 5.0 x 5.0 x 4.3 cm. The articular surface is smooth. The non-articular surface is hemorrhagic and irregular and consistent with fracture sight. Resection margin is irregular and hemorrhagic. Also present in the specimen container are multiple detached pieces of bone measuring in aggregate 4.0 x 4.0 x 0.9cm. Also present in the container is a piece of soft tissue measuring 4.0 x 3.0 x 1.2 cm. Sugar Presser sections are submitted in three cassettes as follows: 1 - soft tissue, 2 &3- bone after decalcification. AM/mr 10/02/23 TC: 5 CPT: 14999, 33127
[2023-10-01] MEDS: Cefazolin 1 GM/50 ML BAG IV (05:01)
[2023-10-01] MEDS: Acetaminophen 500 MG Tablet 1000 MG PO ×3 (05:02→21:30)
[2023-10-01 06:22] LABS: Absolute Lymphocyte Count 0.67 X10^3/uL (0.83-4.51); Absolute Neutrophil Count 8.4 X10^3/uL (2.0-7.7); Basophil# 0.01 X10^3/uL; Basophil% 0.1 % (0-1); Hematocrit 40.7 % (37-47); Hemoglobin 12.8 g/dL (12.0-15.0); Lymphocyte # 0.67 X10^3/ul (0.83-4.51); Lymphocyte % 6.6 % (19-41); Mean Corp Hgb Conc 31.4 g/dL (32-36); Mean Corpuscular Hgb 30.3 pg (27.0-32.0); Mean Corpuscular Volume 96.4 fL (81-99); Mean Platelet Vol. 10.4 fl (6.2-12.0); Monocyte# 0.92 X10^3/uL; Monocyte% 9.1 % (0-10); NRBC Flagged by Analyzer 0 % (0-5); Neutrophil # 8.44 X10^3/uL (2.7-7.7); Neutrophil % 83.6 % (47-70); Platelet Count 236 K/mm3 (150-450); RBC Distribution Width CV 16.3 % (11.6-14.6); RBC Distribution Width SD 58.4 fl (35.1-43.9); Red Blood Count 4.22 M/mm3 (4.2-5.4); White Blood Count 10.1 K/mm3 (4.4-11.0)
[2023-10-01] MEDS: oxyCODONE 5 MG Tablet PO (06:35)
[2023-10-01] MEDS: APIXABAN 2.5 MG TABLET (WCH) PO ×2 (06:35→21:29)
[2023-10-01 06:44] LABS: Anion Gap 5 (5-15); BUN 30 mg/dL (7-18); BUN/Creat Ratio 27.8 RATIO (10-20); Calcium,Total 9.2 mg/dL (8.5-10.1); Chloride 109 mmol/L (98-107); Creatinine, Serum 1.08 mg/dL (0.55-1.02); EST Glomerular Filtration Rate 51 mL/min (>60); Est Glom Filt Rate - Afr Amer 62 mL/min (>60); Estimated Creatinine Clearance 26.94 ml/min; Glucose 141 mg/dL (74-106); Potassium 4.5 mmol/L (3.5-5.1); Sodium Level 140 mmol/L (136-145)
[2023-10-01] MEDS: Calcium Carbonate 500 MG Tablet PO ×3 (07:58→18:00)
[2023-10-01] MEDS: Aspirin E.C. 81 MG Tablet PO (07:58)
[2023-10-01] MEDS: Magnesium Chloride 64 MG Delay Rel.Tablet 128 MG PO (07:58)
[2023-10-01] MEDS: Metoprolol(XL)Succ 25 MG Tablet 12.5 MG PO (07:59)
[2023-10-01] MEDS: Cholecalciferol (VIT D3) 25 MCG TABLET (1,000 UNITS) PO (08:00)
[2023-10-01] MEDS: Amiodarone 200 MG Tablet 100 MG PO (08:01)
[2023-10-01] MEDS: Furosemide 40 MG Tablet PO (08:05)
--- NOTE | 2023-10-01 11:42 | PN.ORTHO_ITS ---
Subjective Subjective Seen and examined. Pain controlled denies any fevers chills nausea vomiting shortness of breath or chest pain has ambulated with physical therapy. Had some confusion postoperatively that has resolved Objective Data Objective Data Vital Signs: Vital Signs Temp Pulse Resp BP Pulse Ox O2 Del Method O2 Flow Rate 98.3 F 69 18 139/64 H 98 Room Air 2 10/01/23 09:00 10/01/23 09:00 10/01/23 09:00 10/01/23 09:00 10/01/23 09:00 10/01/23 09:00 10/01/23 01:28 Oxygen Flow Rate (L/min) 2 Oxygen Delivery Method Room Air Weight: 102 lb 8.239 oz Body Mass Index (BMI) 18.1 Intake & Output: Intake and Output for Last 24 Hours 09/29/23 09/30/23 10/01/23 23:59 23:59 23:59 Intake Total 235 / 235 1891.00 / 1891.00 1050 / 1050 Output Total 300 / 550 1250 / 1250 300 / 300 Balance -65 / -315 641.00 / 641.00 750 / 750 Medical Nutrition Assessment Dietitian: Malnutrition Criteria Met Start: 09/30/23 15:18 Freq: Status: Active Protocol: Document 09/30/23 15:18 RMA (Rec: 09/30/23 15:18 RMA [id number]) Nutrition Malnutrition Evidence of Malnutrition Exists Yes Malnutrition (severe): Chronic Evidenced By Suboptimal Energy Intake ( Severe),Weight Loss (Moderate) ,Physical Changes (Moderate) Intake Problem Inadequate Oral Intake Etiology related to surgery Signs/Symptoms as evidenced by NPO Status Active Problem Clinical Problem Chronic Disease or Condition Related Malnutrition Etiology suspect severe protein-calorie malnutrition in the context of chronic disease and debility related to inadequate oral/energy intake Signs/Symptoms as evidenced by BMI 17.4, ~5-6 % unintentional weight loss in undetermined timeframe, PO meeting <50% estimated nutrition needs x 1 month and moderate to severe muscle wasting/fat depletion in the clavicle, arms and legs; pt is currently NPO for surgery Status Active Problem Recommendation Dietitian Recommendations/Changes Recommend advance diet as tolerated to liberalized regular/no added salt. Recommend 120mL ensure plus HP 3 times per day w/ medpass as diet advanced post-op. Additional ONS as PO established with meals. Lab / Micro Data 10/01/23 06:02 10/01/23 06:02 Labs: Laboratory Results - last 24 hr 09/30/23 13:59: POC Glucose 92 10/01/23 06:02: WBC 10.1, RBC 4.22, Hgb 12.8, Hct 40.7, MCV 96.4, MCH 30.3, MCHC 31.4 L, RDW Std Deviation 58.4 H, RDW Coeff of Marie 16.3 H, Plt Count 236, MPV 10.4, Immature Gran % (Auto) 0.600, Neut % (Auto) 83.6 H, Lymph % (Auto) 6.6 L, [place] % (Auto) 9.1, Eos % (Auto) 0.0, Baso % (Auto) 0.1, Absolute Neuts (auto) 8.4 H, Absolute Lymphs (auto) 0.67 L, Nucleated RBC % 0, Sodium 140, Potassium 4.5, Chloride 109 H, Carbon Dioxide 26.0, Anion Gap 5, BUN 30 H, Creatinine 1.08 H, Estim Creat Clear Calc 26.94, Est GFR (MDRD) Af Amer 62, Est GFR (MDRD) Non- Af 51 L, BUN/Creatinine Ratio 27.8 H, Glucose 141 H, Calcium 9.2 Radiography Diagnostic Testing: Radiology Impression Hip X-Ray 09/30/23 13:10 IMPRESSION: Replaced left hip joint demonstrates anatomic alignment, no plain film evidence of postoperative complications Electronically Signed: Bryan Tran MD at 13:37 EDT Reading Location ID and State: [address] [place] [address] , Service support , Physical Exam Const alert, oriented x3 and no apparent distress Extremity Extremity Narrative: Dressing clean dry intact compartments soft neurovascular intact EHL tibialis anterior gastrocsoleus intact sensation light touch 2 out of 4 pedal pulse Assessment & Plan Assessment/Plan (1) S/P hip hemiarthroplasty: PLAN: Plan Postop day 1 left hip hemiarthroplasty for displaced femoral neck fracture PT OT weightbearing as tolerated precautions DVT prophylaxis SCDs KIMI hose Eliquis 2.5 mg twice daily for 3 weeks Pain control oxycodone and Tylenol Will likely benefit from rehab or transitional care Dressing to be left undisturbed for 7 days postop then removed and cleaned daily with antibacterial soap and warm water and replace daily after that point. Follow-up in the office 2 weeks for staple removal wound check if patient is at a [facility] rehab or TCU I am happy to see her there instead. Call with any questions or concerns
--- NOTE | 2023-10-01 11:57 | CASEMGMT ---
BRENNAN DING Assessment Face to Face with patient for initial transition planning/care coordination assessment. BRENNAN DING introduced self and role at [facility], pt voices understanding. Pt is A&Ox3 and is resting comfortably in the chair and is calm. Care providers, pharmacy, and demographics verified. Admitting dx: Lt femoral Neck Fracture after Mechanical fall PCP: Rachell Specialists: ANIYA Preferred Pharmacy: [facility] Pres[facility] Benefit: Yes LNOK: Júnior Hays (Nephew and states POA), Magdalena Hays (Júnior's ) Living Arrangements: Pt states that she lives in the independent aspect of [facility] with her who requires assistance at home. Pt states that their room has a flat entrance. ADLs/IADLs: Requires assistance. also requires help Transportation: Pt states [employer], neighbor, son DME: Cane, FWW, Pulse Ox, BP Cuff, walk-in shower with GB and seat HHC/SNF: States history with [facility]. States HHC history but is unsure of the agency. Denies ever being admitted to the skilled aspect of a SNF. Pt?s goal: SNF for further rehab Plan: Pt 6-Click is 8. Therapy evals are pending but at this time the pt states that she is agreeable to go to a SNF for further rehab. BRENNAN Pinon CM made aware and states that she will update SW. CHIQUI to follow for safe DC from [facility]. Mukesh Rodriges RN, CM
--- NOTE | 2023-10-01 13:40 | CASEMGMT ---
Addendum entered by Ofelia Kim 10/01/23 15:03: Hospital exemption started BERNARDINO Loving Original Note: Social Work- SW met with pt to discuss FOC following d/c. A list of SNF providers including quality and resource use data and consistent with the patient?s preferred geographic region, medical needs, and insurance network were provided from the [facility]. Pt states that she believes [facility] would be the best option, but to check with niece, Magdalena. SW called Magdalena who also stated [facility] would be FOC d/t pt spouse potentially being located there d/t declining independence. SW completed referral to [facility]. Plan: [facility]; pending acceptance BERNARDINO Loving
--- NOTE | 2023-10-01 15:40 | CHAPLAIN ---
Type of Pastoral Visit _x__ Initial Visit ___ Follow-up Visit ___ On-call Visit ___ General Patient Visit ___ Spiritual Assessment ___ Family Conference ___ Bereavement ___ Rapid Response ___ Code Blue ___ Other (describe below) Pastoral Care Referral From _x__ Patient ___ Family ___ Nurse ___ Physician ___ Crossing [place] ___ Fuel Efficient Automobile Designer ___ Other (describe below) Sacrament/Intervention _x__ Active listening ___ Anointing ___ Pentecostalism ___ Bereavement ___ Communion ___ Molly exploration ___ _x__ Life review _x__ Prayer ___ Reconciliation ___ Sacrament of Sick _x__ Supportive presence ___ Wedding ___ Other (describe below) Pastoral Comments
--- NOTE | 2023-10-01 16:32 | PN.HOSP_ITS ---
Reason for Visit Reason for Visit: Diagnoses Contusion of lower back and pelvis, initial encounter (09/29/23) Laceration without foreign body of left elbow, initial encounter (09/29/23) Fracture of unspecified part of neck of left femur, initial encounter for closed fracture (09/29/23) Unspecified fall, initial encounter (09/29/23) Personal history of other diseases of the circulatory system (09/29/23) Presence of automatic (implantable) cardiac defibrillator (09/29/23) Presence of unspecified artificial hip joint (09/29/23) Objective Data Objective Data Vital Signs: Vital Signs Temp Pulse Resp BP Pulse Ox O2 Del Method O2 Flow Rate 97.5 F L 67 18 114/45 L 98 Room Air 2 10/01/23 15:15 10/01/23 15:15 10/01/23 15:15 10/01/23 15:15 10/01/23 15:15 10/01/23 15:00 10/01/23 01:28 Oxygen Flow Rate (L/min) 2 Oxygen Delivery Method Room Air Weight: 102 lb 8.239 oz Body Mass Index (BMI) 18.1 Intake & Output: Intake and Output for Last 24 Hours 09/29/23 09/30/23 10/01/23 23:59 23:59 23:59 Intake Total 235 / 235 1891.00 / 1891.00 1550 / 1550 Output Total 300 / 550 1250 / 1250 300 / 300 Balance -65 / -315 641.00 / 641.00 1250 / 1250 Medical Nutrition Assessment Dietitian: Malnutrition Criteria Met Start: 09/30/23 15:18 Freq: Status: Active Protocol: Document 09/30/23 15:18 RMA (Rec: 09/30/23 15:18 RMA [id number]) Nutrition Malnutrition Evidence of Malnutrition Exists Yes Malnutrition (severe): Chronic Evidenced By Suboptimal Energy Intake ( Severe),Weight Loss (Moderate) ,Physical Changes (Moderate) Intake Problem Inadequate Oral Intake Etiology related to surgery Signs/Symptoms as evidenced by NPO Status Active Problem Clinical Problem Chronic Disease or Condition Related Malnutrition Etiology suspect severe protein-calorie malnutrition in the context of chronic disease and debility related to inadequate oral/energy intake Signs/Symptoms as evidenced by BMI 17.4, ~5-6 % unintentional weight loss in undetermined timeframe, PO meeting <50% estimated nutrition needs x 1 month and moderate to severe muscle wasting/fat depletion in the clavicle, arms and legs; pt is currently NPO for surgery Status Active Problem Recommendation Dietitian Recommendations/Changes Recommend advance diet as tolerated to liberalized regular/no added salt. Recommend 120mL ensure plus HP 3 times per day w/ medpass as diet advanced post-op. Additional ONS as PO established with meals. Lab / Micro Data 10/01/23 06:02 10/01/23 06:02 Labs: Laboratory Results - last 24 hr 10/01/23 06:02: WBC 10.1, RBC 4.22, Hgb 12.8, Hct 40.7, MCV 96.4, MCH 30.3, MCHC 31.4 L, RDW Std Deviation 58.4 H, RDW Coeff of Marie 16.3 H, Plt Count 236, MPV 10.4, Immature Gran % (Auto) 0.600, Neut % (Auto) 83.6 H, Lymph % (Auto) 6.6 L, [place] % (Auto) 9.1, Eos % (Auto) 0.0, Baso % (Auto) 0.1, Absolute Neuts (auto) 8.4 H, Absolute Lymphs (auto) 0.67 L, Nucleated RBC % 0, Sodium 140, Potassium 4.5, Chloride 109 H, Carbon Dioxide 26.0, Anion Gap 5, BUN 30 H, Creatinine 1.08 H, Estim Creat Clear Calc 26.94, Est GFR (MDRD) Af Amer 62, Est GFR (MDRD) Non- Af 51 L, BUN/Creatinine Ratio 27.8 H, Glucose 141 H, Calcium 9.2 Radiography Diagnostic Testing: Radiology Impression Echocardiogram 09/30/23 12:43 Interpretation Summary The estimated ejection fraction is 40-45 %. There is evidence of diastolic dysfunction. Mild (1+) aortic valve insufficiency. Hypokinesis of the apex, lateral wall and posterior salazar Ordering Physician: Anson Waite Performed By: Vipul Sotelo, ANTHONY Physical Exam Narrative Seen and examined. Patient is postop day 1. Had surgery on 09/30/2023. Patient voiding urine. Had bowel movement yesterday after surgery. Physical exam General: Alert, Oriented x3, Cooperative HEENT: Atraumatic, PERRLA, EOMI, Normocephalic. Photosensitivity Oral: Oral mucosa dry. No Gingival or Mucosal Lesions/ Ulcerations Neck: Supple, No JVD, Negative Carotid Bruits Chest wall/Lungs: Air entry diminished in bilateral lung bases. No crepitation/rhonchi Cardiovascular: Regular rate, Regular Rhythm, Normal S1, Normal S2, systolic murmur LLSB. Abdomen: Bowel Sounds Present, Soft, Non Tender, Non-Distended : No dysuria. No renal angle tenderness. No suprapubic tenderness. Extremities: No edema, Capillary Refill Less than 3 Seconds Skin: Left pelvic contusion and Left lateral elbow, 2 skin tears. No active bleeding Musculoskeletal: Status post left hip hemiarthroplasty. Up and out of bed. Surgical dressing dry. Neurological: Cranial nerves II-XII grossly intact, DTR 2+/4. No acute focal neurological deficit. Psych/Mental Status: Flat affect. Mild cognitive deficits. Assessment & Plan Assessment/Plan (1) Fracture of femoral neck, left, closed: QUALIFIERS: Encounter type: initial encounter Qualified Code(s): S72.002A - Fracture of unspecified part of neck of left femur, initial encounter for closed fracture (2) Contusion of pelvic region: QUALIFIERS: Encounter type: initial encounter Qualified Code(s): S30.0XXA - Contusion of lower back and pelvis, initial encounter (3) ISTAP type 3 skin tear of left elbow: (4) Presence of combination internal cardiac defibrillator (ICD) and pacemaker: PLAN: Plan 88-year-old female was admitted to [facility] floor after she lost her balance, left knee buckled and gave out while using walker to ambulate resulting in mechanical fall on left hip elbow and forearm. She was found left hip fracture on imaging 1. Left Femoral Neck Fracture, impacted with mild displacement due to mechanical Fall with pelvic contusion and Left lateral elbow skin tears x 2 - Admit to general medical floor. Has Drake catheter. Give Tylenol prn for [id number] (level 1-5/10) pain or fever. Give Morphine IV prn for severe (level 6-10/10) pain. Give Flexeril 5 mg PO TID prn for muscle spasms. Hip and pelvis x-ray directly reviewed. Left humeral neck fracture with impaction with mild displacement 0.7 cm. Normal left acetabulum. 09/29: Perioperative surgical risk calculated. Patient within average risk of serious complication, any complication, return to the OR and discharged to SNF. Patient is above average for pneumonia, UTI, sepsis and dehydration. Overall patient has 4 MET functional activity doing her most of the work herself on walker. She is moderate perioperative risk for medical and surgical complications Patient is scheduled for orthopedic surgery finally, the orthopedic surgeon on- call has been contacted by the ED physician with ORIF planned for at 8:00 AM to morgan with help appreciated in advance. 09/30: Patient physically doing well with PT and OT. Out of bed to chair. Surgical dressing dry. Labs reviewed. Postop x-ray shows left hip joint anato chantelle alignment. No radiological evidence of postoperative complication. Discussed with the rehabilitation case coordinator to start for precertification/authorization for SNF CKD stage IIIb: BUNs/creatinine 30/1.08. Creatinine on admission 1.0. No major significant difference. Estimated creatinine clearance around 45-50 mill per minute mL due to her increased age. Hyperglycemia: Glucose is elevated in BMP, 141 mg/dL. No history of diabetes mellitus. A1c ordered for tomorrow AM. 2. History of ICH; after fall (~6 weeks ago) with subsequent severe photosensitivity. Hold preoperative blood thinners to minimize risk of recurrence. 3. Essential Hypertension - Continue home regimen plus give prn IV hydralazine for systolic blood pressure > 160 mmHg. 4. Hyperlipidemia; with intolerance to statins -fasting profile within normal limit. LDL 124, HDL 54. Triglycerides 87. 5. History of CAD; s/p stent - Noted. Chest x-ray initially reviewed and shows AICD, triple lead. No pulmonary venous congestion or pulmonary edema. Patient does not have chest pain or shortness of breath. Twelve-lead EKG was reviewed shows AV dual paced rhythm at 70 bpm. QRS and QTc prolonged expected from defibrillator. 6. History of CHF - Stable with no evidence of acute flare at this time. Chronic systolic and diastolic heart failure as per history from POA, Dr. Júnior Hays which states he has EF about 30%. No documentation available. She moved from [place] and has not established instant printer operator here but planning to establish with Dr. Hawthorne. Clinically, not in acute heart failure. 2D echo ordered for tomorrow 09/30: Echo was done. EF 40 to 45%. Evidence of diastolic dysfunction. Mild AI and hypokinesis of apex lateral and posterior salazar. As per POA, compared to last EF outside, it seems that her EF has improved. 7. History of arrhythmia; s/p PPM/AICD -no acute issues 8. OA - Stable. Give Tylenol prn. 9. DVT prophylaxis - We will avoid preoperative blood thinners in patient's with traumatic fracture due to increased risk of bleeding complications. SCD on RLE only. Postoperative DVT prophylaxis to be chosen by orthopod. Laboratory Results 10/01/23 06:02: WBC 10.1, RBC 4.22, Hgb 12.8, Hct 40.7, MCV 96.4, MCH 30.3, MCHC 31.4 L, RDW Std Deviation 58.4 H, RDW Coeff of Marie 16.3 H, Plt Count 236, MPV 10.4, Immature Gran % (Auto) 0.600, Neut % (Auto) 83.6 H, Lymph % (Auto) 6.6 L, [place] % (Auto) 9.1, Eos % (Auto) 0.0, Baso % (Auto) 0.1, Absolute Neuts (auto) 8 .4 H, Absolute Lymphs (auto) 0.67 L, Nucleated RBC % 0, Sodium 140, Potassium 4.5, Chloride 109 H, Carbon Dioxide 26.0, Anion Gap 5, BUN 30 H, Creatinine 1.08 H, Estim Creat Clear Calc 26.94, Est GFR (MDRD) Af Amer 62, Est GFR (MDRD) Non- Af 51 L, BUN/Creatinine Ratio 27.8 H, Glucose 141 H, Calcium 9.2 Clinical Impression(s) from Imaging Studies Pelvis X-Ray 09/29/23 12:54 IMPRESSION: Left femoral neck fracture. Electronically Signed: Enrrique Carty MD at 13:16 EDT , Chest X-Ray 09/29/23 14:25 IMPRESSION: Cardiac enlargement. No focal infiltrate. Electronically Signed: Enrrique Carty MD at 14:48 EDT , Hip/Pelvis X-Ray 09/29/23 14:25 IMPRESSION: Left femoral neck fracture. Electronically Signed: Enrrique Carty MD at 14:49 EDT , Echocardiogram 09/30/23 12:43 Interpretation Summary The estimated ejection fraction is 40-45 %. There is evidence of diastolic dysfunction. Mild (1+) aortic valve insufficiency. Hypokinesis of the apex, lateral wall and posterior salazar Hip X-Ray 09/30/23 13:10 IMPRESSION: Replaced left hip joint demonstrates anatomic alignment, no plain film evidence of postoperative complications Electronically Signed: Bryan Tran MD at 13:37 EDT , Charges/Coding Visit Charges Inpatient E&M: 77419 Subs Hosp L2
[2023-10-02] MEDS: Haloperidol Lactate 5 MG/ML Vial 2 MG IM (03:06)
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
[2023-10-02] MEDS: Haloperidol Lactate 5 MG/ML Vial IM (04:15)
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
[2023-10-02] MEDS: 0.9% Saline Lock 10 ML Syringe IV (04:58)
[2023-10-02] MEDS: HYDROmorphone 0.5 MG/0.5 ML SYRINGE IV (04:58)
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
[2023-10-02 07:30] LABS: Absolute Lymphocyte Count 0.69 X10^3/uL (0.83-4.51); Basophil# 0.02 X10^3/uL; Basophil% 0.2 % (0-1); Eosinophil# 0.06 X10^3/uL; Eosinophils% 0.6 % (0-5); Hematocrit 35.3 % (37-47); Hemoglobin 11.3 g/dL (12.0-15.0); Lymphocyte # 0.69 X10^3/ul (0.83-4.51); Lymphocyte % 7.3 % (19-41); Mean Corpuscular Hgb 30.4 pg (27.0-32.0); Mean Corpuscular Volume 94.9 fL (81-99); Monocyte% 7.4 % (0-10); NRBC Flagged by Analyzer 0 % (0-5); Neutrophil # 7.95 X10^3/uL (2.7-7.7); Platelet Count 250 K/mm3 (150-450); RBC Distribution Width CV 16.2 % (11.6-14.6); RBC Distribution Width SD 56.7 fl (35.1-43.9); Red Blood Count 3.72 M/mm3 (4.2-5.4); White Blood Count 9.5 K/mm3 (4.4-11.0)
[2023-10-02 07:35] VITALS: O2SAT 92
[2023-10-02] MEDS: Amiodarone 200 MG Tablet 100 MG PO (08:10)
[2023-10-02 08:11] VITALS: PULSE 70
[2023-10-02 08:11] LABS: Anion Gap 3 (5-15); BUN 31 mg/dL (7-18); BUN/Creat Ratio 30.1 RATIO (10-20); Calcium,Total 9.2 mg/dL (8.5-10.1); Chloride 107 mmol/L (98-107); Creatinine, Serum 1.03 mg/dL (0.55-1.02); EST Glomerular Filtration Rate 54 mL/min (>60); Est Glom Filt Rate - Afr Amer 65 mL/min (>60); Estimated Creatinine Clearance 28.25 ml/min; Glucose 115 mg/dL (74-106); Potassium 3.9 mmol/L (3.5-5.1); Sodium Level 139 mmol/L (136-145)
[2023-10-02] MEDS: Calcium Carbonate 500 MG Tablet PO ×3 (08:11→17:14)
[2023-10-02] MEDS: Aspirin E.C. 81 MG Tablet PO (08:11)
[2023-10-02] MEDS: Metoprolol(XL)Succ 25 MG Tablet 12.5 MG PO (08:11)
[2023-10-02] MEDS: Furosemide 40 MG Tablet PO (08:11)
[2023-10-02] MEDS: Magnesium Chloride 64 MG Delay Rel.Tablet 128 MG PO (08:12)
[2023-10-02] MEDS: Cholecalciferol (VIT D3) 25 MCG TABLET (1,000 UNITS) PO (08:12)
[2023-10-02] MEDS: APIXABAN 2.5 MG TABLET (WCH) PO (08:16)
[2023-10-02 09:04] VITALS: BP 95/39; PULSE 70; RESP 16; TEMP 36.8; O2SAT 95
[2023-10-02 09:56] LABS: Hemoglobin A1c 5.4 % (3.8-5.6)
--- NOTE | 2023-10-02 09:57 | CASEMGMT ---
Social Work- SW called to check on status of referral. Zunilda is on vacation. Left a voicemail for BERNARDINO Waters
[2023-10-02 11:19] VITALS: BP 124/51; PULSE 70; RESP 16; TEMP 37.1; O2SAT 93
--- NOTE | 2023-10-02 11:53 | CASEMGMT ---
Social Work SW spoke w/pt's nephew and POA in regard to plan, he states is aware [facility] has a bed for pt, inquired when pt may go. SW explained pt got Haldol last night so will need to be 24 hours without Haldol before she can leave, so she will not go today. Niels states understanding. He explained that pt's son yesterday and was trying to decide when to tell her. He did tell her today and he states pt did seem to take the news okay. Plan continues to be for pt to go to [facility] when ready and authorization is attained. MAYTE Nava
[2023-10-02] MEDS: Acetaminophen 500 MG Tablet 1000 MG PO (13:35)
--- NOTE | 2023-10-02 13:35 | PN.HOSP_ITS ---
Reason for Visit Reason for Visit: Diagnoses Contusion of lower back and pelvis, initial encounter (09/29/23) Laceration without foreign body of left elbow, initial encounter (09/29/23) Fracture of unspecified part of neck of left femur, initial encounter for closed fracture (09/29/23) Unspecified fall, initial encounter (09/29/23) Personal history of other diseases of the circulatory system (09/29/23) Presence of automatic (implantable) cardiac defibrillator (09/29/23) Presence of unspecified artificial hip joint (09/29/23) Objective Data Objective Data Vital Signs: Vital Signs Temp Pulse Resp BP Pulse Ox O2 Del Method O2 Flow Rate 98.7 F 70 16 124/51 H 93 Room Air 2 10/02/23 11:19 10/02/23 11:19 10/02/23 11:19 10/02/23 11:19 10/02/23 11:19 10/02/23 11:19 10/01/23 01:28 Oxygen Flow Rate (L/min) 2 Oxygen Delivery Method Room Air Weight: 102 lb 8.239 oz Body Mass Index (BMI) 18.1 Intake & Output: Intake and Output for Last 24 Hours 09/30/23 10/01/23 10/02/23 23:59 23:59 23:59 Intake Total 1891.00 / 1891.00 2200 / 2200 250 / 250 Output Total 1250 / 1250 300 / 300 Balance 641.00 / 641.00 1900 / 1900 250 / 250 Medical Nutrition Assessment Dietitian: Malnutrition Criteria Met Start: 09/30/23 15:18 Freq: Status: Active Protocol: Document 10/02/23 12:07 RMA (Rec: 10/02/23 12:08 RMA [id number]) Nutrition Malnutrition Evidence of Malnutrition Exists Yes Malnutrition (severe): Chronic Evidenced By Suboptimal Energy Intake ( Severe),Weight Loss (Moderate) ,Physical Changes (Moderate) Clinical Problem Chronic Disease or Condition Related Malnutrition Etiology suspect severe protein-calorie malnutrition in the context of chronic disease and debility related to inadequate oral/energy intake Signs/Symptoms as evidenced by BMI 17.4, ~5-6 % unintentional weight loss in undetermined timeframe, PO meeting <50% estimated nutrition needs x 1 month and moderate to severe muscle wasting/fat depletion in the clavicle, arms and legs Status Active Problem Recommendation Dietitian Recommendations/Changes Will change diet to sodium- restricted, liberalize as needed. Fluid restriction per physician as indicated. Will add 120mL ensure plus HP 3 times per day w/ medpass. Will add ensure compact w/ breakfast, fortified pudding w / lunch and magic cup w/ dinner. Lab / Micro Data 10/02/23 07:20 10/02/23 07:20 Labs: Laboratory Results - last 24 hr 10/02/23 07:20: WBC 9.5, RBC 3.72 L, Hgb 11.3 L, Hct 35.3 L, MCV 94.9, MCH 30.4, MCHC 32.0, RDW Std Deviation 56.7 H, RDW Coeff of Marie 16.2 H, Plt Count 250, MPV 10.0, Immature Gran % (Auto) 0.500, Neut % (Auto) 84.0 H, Lymph % (Auto) 7.3 L, [place] % (Auto) 7.4, Eos % (Auto) 0.6, Baso % (Auto) 0.2, Absolute Neuts (auto) 8.0 H, Absolute Lymphs (auto) 0.69 L, Nucleated RBC % 0, Sodium 139, Potassium 3.9, Chloride 107, Carbon Dioxide 29.0, Anion Gap 3 L, BUN 31 H, Creatinine 1.03 H, Estim Creat Clear Calc 28.25, Est GFR (MDRD) Af Amer 65, Est GFR (MDRD) Non-Af 54 L, BUN/Creatinine Ratio 30.1 H, Glucose 115 H, Hemoglobin A1c 5.4, Calcium 9.2 Radiography Diagnostic Testing: Radiology Impression Echocardiogram 09/30/23 12:43 Interpretation Summary The estimated ejection fraction is 40-45 %. There is evidence of diastolic dysfunction. Mild (1+) aortic valve insufficiency. Hypokinesis of the apex, lateral wall and posterior salazar Ordering Physician: Anson Waite Performed By: Vipul Sotelo RCS Physical Exam Narrative Seen and examined. Patient is postop day 2. Had surgery on 09/30/2023. Patient voiding urine. Patient had bowel movement in the evening of surgery. Physical exam General: Alert, Oriented x3, Cooperative HEENT: Atraumatic, PERRLA, EOMI, Normocephalic. Photosensitivity Oral: Oral mucosa dry. No Gingival or Mucosal Lesions/ Ulcerations Neck: Supple, No JVD, Negative Carotid Bruits Chest wall/Lungs: Air entry diminished in bilateral lung bases. No crepitation/rhonchi Cardiovascular: Regular rate, Regular Rhythm, Normal S1, Normal S2, systolic murmur LLSB. Abdomen: Bowel Sounds Present, Soft, Non Tender, Non-Distended : No dysuria. No renal angle tenderness. No suprapubic tenderness. Extremities: No edema, Capillary Refill Less than 3 Seconds Skin: Left pelvic contusion and Left lateral elbow, 2 skin tears. No active bleeding Musculoskeletal: Status post left hip hemiarthroplasty. Up and out of bed. Surgical dressing dry. Neurological: Cranial nerves II-XII grossly intact, DTR 2+/4. No acute focal neurological deficit. Psych/Mental Status: Flat affect. Mild cognitive deficits. Assessment & Plan Assessment/Plan (1) Fracture of femoral neck, left, closed: QUALIFIERS: Encounter type: initial encounter Qualified Code(s): S72.002A - Fracture of unspecified part of neck of left femur, initial encounter for closed fracture (2) Contusion of pelvic region: QUALIFIERS: Encounter type: initial encounter Qualified Code(s): S30.0XXA - Contusion of lower back and pelvis, initial encounter (3) ISTAP type 3 skin tear of left elbow: (4) Presence of combination internal cardiac defibrillator (ICD) and pacemaker: PLAN: Plan 88-year-old female was admitted to [facility] floor after she lost her balance, left knee buckled and gave out while using walker to ambulate resulting in mechanical fall on left hip elbow and forearm. She was found left hip fracture on imaging 1. Left Femoral Neck Fracture, impacted with mild displacement due to mechanical Fall with pelvic contusion and Left lateral elbow skin tears x 2 - Admit to general medical floor. Has Drake catheter. Give Tylenol prn for [id number] (level 1-5/10) pain or fever. Give Morphine IV prn for severe (level 6-10/10) pain. Give Flexeril 5 mg PO TID prn for muscle spasms. Hip and pelvis x-ray directly reviewed. Left humeral neck fracture with impaction with mild displacement 0.7 cm. Normal left acetabulum. 09/29: Perioperative surgical risk calculated. Patient within average risk of serious complication, any complication, return to the OR and discharged to SNF. Patient is above average for pneumonia, UTI, sepsis and dehydration. Overall patient has 4 MET functional activity doing her most of the work herself on walker. She is moderate perioperative risk for medical and surgical complications Patient is scheduled for orthopedic surgery finally, the orthopedic surgeon on- call has been contacted by the ED physician with ORIF planned for at 8:00 AM tomorrow with help appreciated in advance. 09/30: Patient physically doing well with PT and OT. Out of bed to chair. Surgical dressing dry. Labs reviewed. Postop x-ray shows left hip joint anatomic alignment. No radiological evidence of postoperative complication. Discussed with the director of casework services to start for precertification/authorization for SNF CKD stage IIIb: BUNs/creatinine 30/1.08. Creatinine on admission 1.0. No major significant difference. Estimated creatinine clearance around 45-50 mill per minute mL due to her increased age. Hyperglycemia: Glucose is elevated in BMP, 141 mg/dL. No history of diabetes mellitus. A1c ordered for tomorrow AM. 2. History of ICH; after fall (~6 weeks ago) with subsequent severe photosensitivity. Hold preoperative blood thinners to minimize risk of recurrence. 3. Essential Hypertension - Continue home regimen plus give prn IV hydralazine for systolic blood pressure > 160 mmHg. 4. Hyperlipidemia; with intolerance to statins -fasting profile within normal limit. LDL 124, HDL 54. Triglycerides 87. 5. History of CAD; s/p stent - Noted. Chest x-ray initially reviewed and shows AICD, triple lead. No pulmonary venous congestion or pulmonary edema. Patient does not have chest pain or shortness of breath. Twelve-lead EKG was reviewed shows AV dual paced rhythm at 70 bpm. QRS and QTc prolonged expected from defibrillator. 6. History of CHF - Stable with no evidence of acute flare at this time. Chronic systolic and diastolic heart failure as per history from POA, Dr. Júnior Hays which states he has EF about 30%. No documentation available. She moved from [place] and has not established orthopedic brace maker here but planning to establish with Dr. Hawthorne. Clinically, not in acute heart failure. 2D echo ordered for tomorrow 09/30: Echo was done. EF 40 to 45%. Evidence of diastolic dysfunction. Mild AI and hypokinesis of apex lateral and posterior salazar. As per POA, compared to last EF outside, it seems that her EF has improved. 7. History of arrhythmia; s/p PPM/AICD -no acute issues 8. OA - Stable. Give Tylenol prn. 9. DVT prophylaxis - We will avoid preoperative blood thinners in patient's with traumatic fracture due to increased risk of bleeding complications. SCD on RLE only. Postoperative DVT prophylaxis to be chosen by orthopod. Laboratory Results 10/01/23 06:02: WBC 10.1, RBC 4.22, Hgb 12.8, Hct 40.7, MCV 96.4, MCH 30.3, MCHC 31.4 L, RDW Std Deviation 58.4 H, RDW Coeff of Marie 16.3 H, Plt Count 236, MPV 10.4, Immature Gran % (Auto) 0.600, Neut % (Auto) 83.6 H, Lymph % (Auto) 6.6 L, [place] % (Auto) 9.1, Eos % (Auto) 0.0, Baso % (Auto) 0.1, Absolute Neuts (auto) 8.4 H, Absolute Lymphs (auto) 0.67 L, Nucleated RBC % 0, Sodium 140, Potassium 4.5, Chloride 109 H, Carbon Dioxide 26.0, Anion Gap 5, BUN 30 H, Creatinine 1.08 H, Estim Creat Clear Calc 26.94, Est GFR (MDRD) Af Amer 62, Est GFR (MDRD) Non- Af 51 L, BUN/Creatinine Ratio 27.8 H, Glucose 141 H, Calcium 9.2 Clinical Impression(s) from Imaging Studies Pelvis X-Ray 09/29/23 12:54 IMPRESSION: Left femoral neck fracture. Electronically Signed: Enrrique Carty MD at 13:16 EDT , Chest X-Ray 09/29/23 14:25 IMPRESSION: Cardiac enlargement. No focal infiltrate. Electronically Signed: Enrrique Carty MD at 14:48 EDT , Hip/Pelvis X-Ray 09/29/23 14:25 IMPRESSION: Left femoral neck fracture. Electronically Signed: Enrrique Carty MD at 14:49 EDT , Echocardiogram 09/30/23 12:43 Interpretation Summary The estimated ejection fraction is 40-45 %. There is evidence of diastolic dysfunction. Mild (1+) aortic valve insufficiency. Hypokinesis of the apex, lateral wall and posterior salazar Hip X-Ray 09/30/23 13:10 IMPRESSION: Replaced left hip joint demonstrates anatomic alignment, no plain film evidence of postoperative complications Electronically Signed: Bryan Tran MD at 13:37 EDT ,
[2023-10-02] MEDS: Bisacodyl 5 MG Tablet 10 MG PO (14:01)
[2023-10-02] MEDS: Polyethylene Glycol 3350 17 GM PACKET PO (14:01)
[2023-10-02 15:29] VITALS: BP 134/98; PULSE 68; RESP 16; TEMP 36.7; O2SAT 92
[2023-10-02] MEDS: Ensure Plus High Protein 120 ML LIQUID PO (17:15)
--- NOTE | 2023-10-02 22:34 | NURSING ---
This RN attempted to perform vital signs and give pt HS medications. Pt became combative refusing all care, stating, I don't want shots, I don't want pills, I don't want nothing! RN will attempt at later time when pt more calm. Pt resting in chair with RN at side.
[2023-10-03] VITALS (7 sets, daily range): BP systolic 98–164; BP diastolic 37–71; PULSE 70–75; RESP 16–18; TEMP 36.3–37.4; O2SAT 92–94; BMI 17.2
[2023-10-03] MEDS: Ensure Plus High Protein 120 ML LIQUID PO ×3 (09:27→16:50)
[2023-10-03] MEDS: Amiodarone 200 MG Tablet 100 MG PO (09:28)
[2023-10-03] MEDS: Calcium Carbonate 500 MG Tablet PO ×3 (09:28→16:50)
[2023-10-03] MEDS: Magnesium Chloride 64 MG Delay Rel.Tablet 128 MG PO (09:28)
[2023-10-03] MEDS: Cholecalciferol (VIT D3) 25 MCG TABLET (1,000 UNITS) PO (09:29)
[2023-10-03] MEDS: Aspirin E.C. 81 MG Tablet PO (09:29)
[2023-10-03] MEDS: Furosemide 40 MG Tablet PO (09:29)
[2023-10-03] MEDS: Metoprolol(XL)Succ 25 MG Tablet 12.5 MG PO (09:30)
[2023-10-03] MEDS: Acetaminophen 500 MG Tablet 1000 MG PO ×3 (09:36→22:23)
[2023-10-03] MEDS: APIXABAN 2.5 MG TABLET (WCH) PO ×2 (09:36→22:24)
[2023-10-03] MEDS: Polyethylene Glycol 3350 17 GM PACKET PO (09:38)
[2023-10-03] MEDS: Senna/Docusate Sodium 1 Tablet 2 TABLET PO ×2 (09:38→22:24)
--- NOTE | 2023-10-03 12:56 | CASEMGMT ---
Discharge Planning Updates sent to [facility] Sophia Roberts, Discharge Planning Asst.
--- NOTE | 2023-10-03 13:15 | PN.HOSP_ITS ---
Reason for Visit Reason for Visit: Diagnoses Contusion of lower back and pelvis, initial encounter (09/29/23) Laceration without foreign body of left elbow, initial encounter (09/29/23) Fracture of unspecified part of neck of left femur, initial encounter for closed fracture (09/29/23) Unspecified fall, initial encounter (09/29/23) Personal history of other diseases of the circulatory system (09/29/23) Presence of automatic (implantable) cardiac defibrillator (09/29/23) Presence of unspecified artificial hip joint (09/29/23) Objective Data Objective Data Vital Signs: Vital Signs Temp Pulse Resp BP Pulse Ox O2 Del Method O2 Flow Rate 99.3 F H 71 18 153/47 H 92 Room Air 2 10/03/23 09:22 10/03/23 09:30 10/03/23 09:22 10/03/23 09:22 10/03/23 09:22 10/03/23 09:22 10/01/23 01:28 Oxygen Flow Rate (L/min) 2 Oxygen Delivery Method Room Air Weight: 97 lb 3.582 oz Body Mass Index (BMI) 17.2 Intake & Output: Intake and Output for Last 24 Hours 10/01/23 10/02/23 10/03/23 23:59 23:59 23:59 Intake Total 2200 / 2200 400 / 400 300 / 300 Output Total 300 / 300 Balance 1900 / 1900 400 / 400 300 / 300 Medical Nutrition Assessment Dietitian: Malnutrition Criteria Met Start: 09/30/23 15:18 Freq: Status: Active Protocol: Document 10/02/23 12:07 RMA (Rec: 10/02/23 12:08 RMA [id number]) Nutrition Malnutrition Evidence of Malnutrition Exists Yes Malnutrition (severe): Chronic Evidenced By Suboptimal Energy Intake ( Severe),Weight Loss (Moderate) ,Physical Changes (Moderate) Clinical Problem Chronic Disease or Condition Related Malnutrition Etiology suspect severe protein-calorie malnutrition in the context of chronic disease and debility related to inadequate oral/energy intake Signs/Symptoms as evidenced by BMI 17.4, ~5-6 % unintentional weight loss in undetermined timeframe, PO meeting <50% estimated nutrition needs x 1 month and moderate to severe muscle wasting/fat depletion in the clavicle, arms and legs Status Active Problem Recommendation Dietitian Recommendations/Changes Will change diet to sodium- restricted, liberalize as needed. Fluid restriction per physician as indicated. Will add 120mL ensure plus HP 3 times per day w/ medpass. Will add ensure compact w/ breakfast, fortified pudding w / lunch and magic cup w/ dinner. Lab / Micro Data 10/02/23 07:20 10/02/23 07:20 Physical Exam Narrative Seen and examined. Patient is postop day 3. Had surgery on 09/30/2023. Patient voiding urine. Patient had bowel movement in the evening of surgery. Did not had bowel movement since then. Last BM documented on chart 09/28. Physical exam General: Alert, Oriented x3, Cooperative HEENT: Atraumatic, PERRLA, EOMI, Normocephalic. Photosensitivity Oral: Oral mucosa dry. No Gingival or Mucosal Lesions/ Ulcerations Neck: Supple, No JVD, Negative Carotid Bruits Chest wall/Lungs: Air entry diminished in bilateral lung bases. No crepitation/rhonchi Cardiovascular: Regular rate, Regular Rhythm, Normal S1, Normal S2, systolic murmur LLSB. Abdomen: Bowel Sounds Present, Soft, Non Tender, Non-Distended : No dysuria. No renal angle tenderness. No suprapubic tenderness. Extremities: No edema, Capillary Refill Less than 3 Seconds Skin: Left pelvic contusion and Left lateral elbow, 2 skin tears. No active bleeding Musculoskeletal: Status post left hip hemiarthroplasty. Surgical dressing is dry. Up and out of bed. Surgical dressing dry. Neurological: Cranial nerves II-XII grossly intact, DTR 2+/4. No acute focal neurological deficit. Psych/Mental Status: Flat affect. Mild cognitive deficits. Assessment & Plan Assessment/Plan (1) Fracture of femoral neck, left, closed: QUALIFIERS: Encounter type: initial encounter Qualified Code(s): S72.002A - Fracture of unspecified part of neck of left femur, initial encounter for closed fracture (2) Contusion of pelvic region: QUALIFIERS: Encounter type: initial encounter Qualified Code(s): S30.0XXA - Contusion of lower back and pelvis, initial encounter (3) ISTAP type 3 skin tear of left elbow: (4) Presence of combination internal cardiac defibrillator (ICD) and pacemaker: PLAN: Plan 88-year-old female was admitted to [facility] floor after she lost her balance, left knee buckled and gave out while using walker to ambulate resulting in mechanical fall on left hip elbow and forearm. She was found left hip fracture on imaging 1. Left Femoral Neck Fracture, impacted with mild displacement due to mechanical Fall with pelvic contusion and Left lateral elbow skin tears x 2 - Admit to general medical floor. Has Drake catheter. Give Tylenol prn for [id number] (level 1-5/10) pain or fever. Give Morphine IV prn for severe (level 6-10/10) pain. Give Flexeril 5 mg PO TID prn for muscle spasms. Hip and pelvis x-ray directly reviewed. Left humeral neck fracture with impaction with mild displacement 0.7 cm. Normal left acetabulum. 09/29: Perioperative surgical risk calculated. Patient within average risk of serious complication, any complication, return to the OR and discharged to SNF. Patient is above average for pneumonia, UTI, sepsis and dehydration. Overall patient has 4 MET functional activity doing her most of the work herself on walker. She is moderate perioperative risk for medical and surgical complications Patient is scheduled for orthopedic surgery finally, the orthopedic surgeon on- call has been contacted by the ED physician with ORIF planned for at 8:00 AM tomorrow with help appreciated in advance. 09/30: Patient physically doing well with PT and OT. Out of bed to chair. Surgical dressing dry. Labs reviewed. Postop x-ray shows left hip joint anatomic alignment. No radiological evidence of postoperative complication. Discussed with the family preservation caseworker to start for precertification/authorization for SNF 10/01: Patient is doing well. Did not had bowel yesterday and today. Senna S2 tablet twice daily and MiraLAX started. Dulcolax 10 mg 1 dose. Patient looks mildly confused or delirious as she is on high-dose of oxycodone and Dilaudid as needed therefore oxycodone dose is decreased to 2.5 to 5 mg as needed for moderate to severe pain respectively and Dilaudid discontinued. Patient got haloperidol last night. 10/02: Documented BM 09/28 but patient said she had bowel movement on 09/29. Dulcolax 10 mg repeated with suppository.Pending pre-CERT CKD stage IIIb: BUNs/creatinine 03/07.08. Creatinine on admission 1.0. No major significant difference. Estimated creatinine clearance around 45-50 mill per minute mL due to her increased age. Hyperglycemia: Glucose is elevated in BMP, 141 mg/dL. No history of diabetes mellitus. A1c ordered for tomorrow AM. 2. History of ICH; after fall (~6 weeks ago) with subsequent severe photo sensitivity. Hold preoperative blood thinners to minimize risk of recurrence. 3. Essential Hypertension - Continue home regimen plus give prn IV hydralazine for systolic blood pressure > 160 mmHg. 4. Hyperlipidemia; with intolerance to statins -fasting profile within normal limit. LDL 124, HDL 54. Triglycerides 87. 5. History of CAD; s/p stent - Noted. Chest x-ray initially reviewed and shows AICD, triple lead. No pulmonary venous congestion or pulmonary edema. Patient does not have chest pain or shortness of breath. Twelve-lead EKG was reviewed shows AV dual paced rhythm at 70 bpm. QRS and QTc prolonged expected from defibrillator. 6. History of CHF - Stable with no evidence of acute flare at this time. Chronic systolic and diastolic heart failure as per history from POA, Dr. Júnior Hays which states he has EF about 30%. No documentation available. She moved from [place] and has not established marketing/sales person here but planning to establish with Dr. Hawthorne. Clinically, not in acute heart failure. 2D echo ordered for tomorrow 09/30: Echo was done. EF 40 to 45%. Evidence of diastolic dysfunction. Mild AI and hypokinesis of apex lateral and posterior salazar. As per POA, compared to last EF outside, it seems that her EF has improved. 10/01: Echo finding was discussed and update was given to the patient's niece, Dr. Hays's . 7. History of arrhythmia; s/p PPM/AICD -no acute issues 8. OA - Stable. Give Tylenol prn. 9. DVT prophylaxis - We will avoid preoperative blood thinners in patient's with traumatic fracture due to increased risk of bleeding complications. SCD on RLE only. Postoperative DVT prophylaxis to be chosen by orthopod. Clinical Impression(s) from Imaging Studies Pelvis X-Ray 09/29/23 12:54 IMPRESSION: Left femoral neck fracture. Electronically Signed: Enrrique Carty MD at 13:16 EDT , Chest X-Ray 09/29/23 14:25 IMPRESSION: Cardiac enlargement. No focal infiltrate. Electronically Signed: Enrrique Carty MD at 14:48 EDT , Hip/Pelvis X-Ray 09/29/23 14:25 IMPRESSION: Left femoral neck fracture. Electronically Signed: Enrrique Carty MD at 14:49 EDT , Echocardiogram 09/30/23 12:43 Interpretation Summary The estimated ejection fraction is 40-45 %. There is evidence of diastolic dysfunction. Mild (1+) aortic valve insufficiency. Hypokinesis of the apex, lateral wall and posterior salazar Hip X-Ray 09/30/23 13:10 IMPRESSION: Replaced left hip joint demonstrates anatomic alignment, no plain film evidence of postoperative complications Electronically Signed: Bryan Tran MD at 13:37 EDT , Charges/Coding Visit Charges Inpatient E&M: 80813 Subs Hosp L2
[2023-10-03] MEDS: Bisacodyl 5 MG Tablet 10 MG PO (15:25)
--- NOTE | 2023-10-03 16:03 | CASEMGMT ---
Social Work SW spoke with Eran Mary who states they have attempted to start precert however, pt's insurance is a [place] plan and is not eligible for [place] benefits. Phone call placed to pt's nephew Júnior and informed of this and requested he contact insurance to change plans. Júnior requesting information be give to his Magdalena. Phone call to Magdalena and updated on the insurance issues. Magdalena to work on changing insurance. SW to continue to follow. BERNARDINO Levy
[2023-10-03] MEDS: Bisacodyl 10 MG Suppository RC (16:50)
[2023-10-03] MEDS: 0.9% Saline Lock 10 ML Syringe IV (22:22)
[2023-10-03] MEDS: Menthol/Lanolin/Calamine/Znox 113 GM Tube 1 APPLIC TOPICAL (22:31)
[2023-10-04] VITALS (7 sets, daily range): BP systolic 104–146; BP diastolic 42–71; PULSE 69–72; RESP 15–18; TEMP 36.7–36.8; O2SAT 92–100; BMI 17.2
[2023-10-04] MEDS: Acetaminophen 500 MG Tablet 1000 MG PO ×3 (05:18→20:31)
[2023-10-04 09:22] LABS: Hematocrit 34.2 % (37-47); Mean Corp Hgb Conc 32.2 g/dL (32-36); Mean Corpuscular Hgb 30.3 pg (27.0-32.0); Mean Corpuscular Volume 94.2 fL (81-99); Mean Platelet Vol. 9.8 fl (6.2-12.0); Platelet Count 289 K/mm3 (150-450); RBC Distribution Width CV 16.5 % (11.6-14.6); RBC Distribution Width SD 57.4 fl (35.1-43.9); Red Blood Count 3.63 M/mm3 (4.2-5.4); White Blood Count 6.6 K/mm3 (4.4-11.0)
[2023-10-04] MEDS: Calcium Carbonate 500 MG Tablet PO ×3 (10:08→17:15)
[2023-10-04] MEDS: Aspirin E.C. 81 MG Tablet PO (10:08)
[2023-10-04] MEDS: Magnesium Chloride 64 MG Delay Rel.Tablet 128 MG PO (10:08)
[2023-10-04] MEDS: Furosemide 40 MG Tablet PO (10:09)
[2023-10-04] MEDS: Menthol/Lanolin/Calamine/Znox 113 GM Tube 1 APPLIC TOPICAL ×2 (10:09→20:34)
[2023-10-04] MEDS: Amiodarone 200 MG Tablet 100 MG PO (10:11)
[2023-10-04] MEDS: Senna/Docusate Sodium 1 Tablet 2 TABLET PO (10:12)
[2023-10-04] MEDS: APIXABAN 2.5 MG TABLET (WCH) PO ×2 (10:14→20:31)
[2023-10-04] MEDS: Cholecalciferol (VIT D3) 25 MCG TABLET (1,000 UNITS) PO (11:19)
[2023-10-04] MEDS: Metoprolol(XL)Succ 25 MG Tablet 12.5 MG PO (11:19)
--- NOTE | 2023-10-04 12:15 | CASEMGMT ---
Social Work SW received call from pt's niece Magdalena. Magdalena did call the insurance company regarding changing pt's plan. Insurance states Magdalena needs to be with pt when changes are made. Magdalena will be in later today to call the insurance company with the pt present. [place] javier. BERNARDINO Levy
--- NOTE | 2023-10-04 13:47 | PCM.PN.HOSP ---
Reason for Visit Reason for Visit: Diagnoses Contusion of lower back and pelvis, initial encounter (09/29/23) Laceration without foreign body of left elbow, initial encounter (09/29/23) Fracture of unspecified part of neck of left femur, initial encounter for closed fracture (09/29/23) Unspecified fall, initial encounter (09/29/23) Personal history of other diseases of the circulatory system (09/29/23) Presence of automatic (implantable) cardiac defibrillator (09/29/23) Presence of unspecified artificial hip joint (09/29/23) Subjective Subjective No acute events overnight. Patient seen at bedside this morning. Sitting up comfortably in bedside chair, conversing normally, in no acute distress. Spoke with patient's nephew over the phone at the bedside. His primary concern is making sure patient has had appropriate discharge plan in place. Patient currently resides with her at [facility] in the assisted living side. Current plan is for patient to discharge to detention side of [facility] once the insurance issues have been worked out. No other acute concerns this morning. Objective Data Objective Data Vital Signs: Vital Signs Temp Pulse Resp BP Pulse Ox O2 Del Method O2 Flow Rate 98.2 F 72 18 104/45 L 100 Room Air 2 10/04/23 10:04 10/04/23 11:19 10/04/23 10:10/04/23 11:19 10/04/23 10:04 10/04/23 10:04 10/01/23 01:28 Oxygen Flow Rate (L/min) 2 Oxygen Delivery Method Room Air Weight: 44 kg Body Mass Index (BMI) 17.2 Intake & Output: Intake and Output for Last 24 Hours 10/02/23 10/03/23 10/04/23 23:59 23:59 23:59 Intake Total 400 / 400 1150 / 1150 Balance 400 / 400 1150 / 1150 Medical Nutrition Assessment Dietitian: Malnutrition Criteria Met Start: 09/30/23 15:18 Freq: Status: Active Protocol: Document 10/02/23 12:07 RMA (Rec: 10/02/23 12:08 RMA [id number]) Nutrition Malnutrition Evidence of Malnutrition Exists Yes Malnutrition (severe): Chronic Evidenced By Suboptimal Energy Intake ( Severe),Weight Loss (Moderate) ,Physical Changes (Moderate) Clinical Problem Chronic Disease or Condition Related Malnutrition Etiology suspect severe protein-calorie malnutrition in the context of chronic disease and debility related to inadequate oral/energy intake Signs/Symptoms as evidenced by BMI 17.4, ~5-6 % unintentional weight loss in undetermined timeframe, PO meeting <50% estimated nutrition needs x 1 month and moderate to severe muscle wasting/fat depletion in the clavicle, arms and legs Status Active Problem Recommendation Dietitian Recommendations/Changes Will change diet to sodium- restricted, liberalize as needed. Fluid restriction per physician as indicated. Will add 120mL ensure plus HP 3 times per day w/ medpass. Will add ensure compact w/ breakfast, fortified pudding w / lunch and magic cup w/ dinner. Lab / Micro Data 10/04/23 09:15 10/02/23 07:20 Labs: Laboratory Results - last 24 hr 10/04/23 09:15: WBC 6.6, RBC 3.63 L, Hgb 11.0 L, Hct 34.2 L, MCV 94.2, MCH 30.3, MCHC 32.2, RDW Std Deviation 57.4 H, RDW Coeff of Marie 16.5 H, Plt Count 289, MPV 9.8 Physical Exam Const alert, oriented x3 and no apparent distress Constitutional Narrative: Elderly female, thin, otherwise sitting up comfortably in bedside chair, conversing normally, in no acute distress. General Appearance: cooperative and comfortable HEENT normocephalic, head/scalp atraumatic, hearing grossly normal bilaterally and nasal mucous membranes and turbinates normal Eyes Eyes Narrative: Wearing sunglasses during encounter due to photosensitivity. Neck full ROM Chest inspection of chest normal Resp normal respiratory effort, normal air movement, no use of accessory muscles and clear to auscultation bilaterally Cardio regular rate, regular rhythm, no murmurs and peripheral pulses 2+ throughout GI normal to inspection, nondistended, normoactive bowel sounds, soft to palpation, non-tender and non-distended Back/Spine normal ROM Extremity Extremity Narrative: S/p left hip hemiarthroplasty. Surgical dressing in place, appears clean and dry. Skin no rashes or lesions noted Neuro moves all extremities and no focal motor deficits Speech: speech normal Psych mental status grossly normal Assessment & Plan Assessment/Plan (1) Fracture of femoral neck, closed: QUALIFIERS: Encounter type: initial encounter Laterality: left Qualified Code(s): S72.002A - Fracture of unspecified part of neck of left femur, initial encounter for closed fracture (2) Debility: PLAN: Plan Patient is an 88-year-old female who presented [facility] ED on 09/29/2023 after a fall with left hip pain. 1. Left femoral neck fracture due to mechanical fall, acute on chronic debility ? Orthopedics following. S/p left hip hemiarthroplasty on 09/29. Patient tolerated procedure well, no postoperative complications to this point. DVT prophylaxis with Eliquis 2.5 mg twice daily. Pain management with scheduled Tylenol, oxycodone as needed. PT/OT/case management following. Lives in assisted living side of [facility], planning for discharge to SNF side there. Medically ready for discharge on 10/03, awaiting pre-CERT. 2. Mild constipation, improving ? Noted postoperatively. Improved with scheduled bowel regimen. Continue MiraLAX and senna daily. 3. Severe protein calorie malnutrition ? Met criteria on admission, see nutrition therapy note for further details. Continue Ensure 3 times daily with diet. 4. Mild anemia ? Hemoglobin 14.8 on admit, decreased to 12.8 on hospital day 2 after IV fluid administration. No previous baseline available in our records. Hemoglobin dropped from 12.8 to 11.3 after the operation as noted above, remains stable around 11. No need to monitor further CBCs at this time. Chronic medical conditions: ? CKD stage IIIb: Creatinine 1.00 on admit, at baseline. Has remained at baseline during hospitalization. ? History of ICH with subsequent severe photosensitivity ? History of CAD with stenting, hypertension, hyperlipidemia, CHF: Holding home Entresto and Farxiga. Continue home aspirin, Lasix, Toprol. ? History of arrhythmia s/p PPM/AICD placement: Continue home amiodarone. ? OA: Treatment as above. DVT prophylaxis: Eliquis CODE STATUS: Full code, verified Expected disposition: SNF, medically ready for discharge on 10/03, awaiting pre-CERT Total clinical time spent by myself addressing the patient's medical issues, reviewing all the data, and collaborating with patient's care team: 35 minutes. Charges/Coding Visit Charges Inpatient E&M: 33215 Subs Hosp L2
[2023-10-04] MEDS: Ensure Plus High Protein 120 ML LIQUID PO (17:16)
[2023-10-04] MEDS: 0.9% Saline Lock 10 ML Syringe IV (20:31)
[2023-10-05] VITALS (7 sets, daily range): BP systolic 112–138; BP diastolic 44–56; PULSE 69–70; RESP 16–18; TEMP 36.5–36.7; O2SAT 94–99; BMI 17.2
[2023-10-05] MEDS: Acetaminophen 500 MG Tablet 1000 MG PO ×3 (05:36→20:03)
[2023-10-05] MEDS: Calcium Carbonate 500 MG Tablet PO ×3 (09:41→16:41)
[2023-10-05] MEDS: Ensure Plus High Protein 120 ML LIQUID PO ×3 (09:41→16:41)
[2023-10-05] MEDS: Menthol/Lanolin/Calamine/Znox 113 GM Tube 1 APPLIC TOPICAL ×2 (09:41→19:59)
[2023-10-05] MEDS: Aspirin E.C. 81 MG Tablet PO (09:41)
[2023-10-05] MEDS: Magnesium Chloride 64 MG Delay Rel.Tablet 128 MG PO (09:42)
[2023-10-05] MEDS: Furosemide 40 MG Tablet PO (09:42)
[2023-10-05] MEDS: Amiodarone 200 MG Tablet 100 MG PO (09:42)
[2023-10-05] MEDS: Polyethylene Glycol 3350 17 GM PACKET PO (09:42)
[2023-10-05] MEDS: Metoprolol(XL)Succ 25 MG Tablet 12.5 MG PO (09:43)
[2023-10-05] MEDS: Senna/Docusate Sodium 1 Tablet 2 TABLET PO (09:43)
[2023-10-05] MEDS: Cholecalciferol (VIT D3) 25 MCG TABLET (1,000 UNITS) PO (09:43)
[2023-10-05] MEDS: APIXABAN 2.5 MG TABLET (WCH) PO ×2 (10:24→20:03)
--- NOTE | 2023-10-05 13:35 | PN.HOSP_ITS ---
Reason for Visit Reason for Visit: Diagnoses Other malaise (09/29/23) Contusion of lower back and pelvis, initial encounter (09/29/23) Laceration without foreign body of left elbow, initial encounter (09/29/23) Fracture of unspecified part of neck of left femur, initial encounter for closed fracture (09/29/23) Unspecified fall, initial encounter (09/29/23) Personal history of other diseases of the circulatory system (09/29/23) Presence of automatic (implantable) cardiac defibrillator (09/29/23) Presence of unspecified artificial hip joint (09/29/23) Subjective Subjective No acute events overnight. Seen at bedside this morning, was up working with physical therapy when I saw her. Denied any new concerns today. Objective Data Objective Data Vital Signs: Vital Signs Temp Pulse Resp BP Pulse Ox O2 Del Method O2 Flow Rate 97.8 F 70 16 126/44 H 99 Room Air 2 10/05/23 09:51 10/05/23 09:51 10/05/23 09:51 10/05/23 09:51 10/05/23 09:51 10/05/23 09:52 10/01/23 01:28 Oxygen Flow Rate (L/min) 2 Oxygen Delivery Method Room Air Weight: 44.1 kg Body Mass Index (BMI) 17.2 Intake & Output: Intake and Output for Last 24 Hours 10/03/23 10/04/23 10/05/23 23:59 23:59 23:59 Intake Total 1150 / 1150 700 / 700 Balance 1150 / 1150 700 / 700 Medical Nutrition Assessment Dietitian: Malnutrition Criteria Met Start: 09/30/23 15:18 Freq: Status: Active Protocol: Document 10/02/23 12:07 RMA (Rec: 10/02/23 12:08 RMA [id number]) Nutrition Malnutrition Evidence of Malnutrition Exists Yes Malnutrition (severe): Chronic Evidenced By Suboptimal Energy Intake ( Severe),Weight Loss (Moderate) ,Physical Changes (Moderate) Clinical Problem Chronic Disease or Condition Related Malnutrition Etiology suspect severe protein-calorie malnutrition in the context of chronic disease and debility related to inadequate oral/energy intake Signs/Symptoms as evidenced by BMI 17.4, ~5-6 % unintentional weight loss in undetermined timeframe, PO meeting <50% estimated nutrition needs x 1 month and moderate to severe muscle wasting/fat depletion in the clavicle, arms and legs Status Active Problem Recommendation Dietitian Recommendations/Changes Will change diet to sodium- restricted, liberalize as needed. Fluid restriction per physician as indicated. Will add 120mL ensure plus HP 3 times per day w/ medpass. Will add ensure compact w/ breakfast, fortified pudding w / lunch and magic cup w/ dinner. Lab / Micro Data 10/04/23 09:15 10/02/23 07:20 Physical Exam Const alert, oriented x3 and no apparent distress Constitutional Narrative: Elderly female, thin, otherwise standing comfortably at edge of bed, conversing normally, in no acute distress. General Appearance: cooperative and comfortable HEENT normocephalic, head/scalp atraumatic, hearing grossly normal bilaterally and nasal mucous membranes and turbinates normal Eyes EOMs intact bilaterally and conjunctivae normal Eyes Narrative: Legally blind. Neck full ROM Chest inspection of chest normal Resp normal respiratory effort, normal air movement, no use of accessory muscles and clear to auscultation bilaterally Cardio regular rate, regular rhythm, no murmurs and peripheral pulses 2+ throughout GI normal to inspection, nondistended, normoactive bowel sounds, soft to palpation, non-tender and non-distended Back/Spine normal ROM Extremity Extremity Narrative: S/p left hip hemiarthroplasty. Left hip surgery site with no gross abnormalities. Skin no rashes or lesions noted Neuro moves all extremities and no focal motor deficits Speech: speech normal Psych mental status grossly normal Assessment & Plan Assessment/Plan (1) Fracture of femoral neck, closed: QUALIFIERS: Encounter type: initial encounter Laterality: left Qualified Code(s): S72.002A - Fracture of unspecified part of neck of left f emur, initial encounter for closed fracture (2) Debility: PLAN: Plan Patient is an 88-year-old female who presented [facility] ED on 09/29/2023 after a fall with left hip pain. 1. Left femoral neck fracture due to mechanical fall, acute on chronic debility ? Orthopedics following. S/p left hip hemiarthroplasty on 09/29. Patient tolerated procedure well, no postoperative complications to this point. DVT prophylaxis with Eliquis 2.5 mg twice daily. Pain management with scheduled Tylenol, oxycodone as needed. PT/OT/case management following. Lives in assisted living [facility], planning for discharge to SNF side there. Medically ready for discharge on 10/03, awaiting pre-CERT. 2. Mild constipation, improving ? Noted postoperatively. Improved with scheduled bowel regimen. Continue MiraLAX and senna daily. 3. Severe protein calorie malnutrition ? Met criteria on admission, see nutrition therapy note for further details. Continue Ensure 3 times daily with diet. 4. Mild anemia ? Hemoglobin 14.8 on admit, decreased to 12.8 on hospital day 2 after IV fluid administration. No previous baseline available in our records. Hemoglobin dropped from 12.8 to 11.3 after the operation as noted above, remains stable around 11. No need to monitor further CBCs at this time. Chronic medical conditions: ? CKD stage IIIb: Creatinine 1.00 on admit, at baseline. Has remained at baseline during hospitalization. ? History of ICH with subsequent severe photosensitivity ? History of CAD with stenting, hypertension, hyperlipidemia, CHF: Holding home Entresto and Farxiga. Continue home aspirin, Lasix, Toprol. ? History of arrhythmia s/p PPM/AICD placement: Continue home amiodarone. ? OA: Treatment as above. DVT prophylaxis: Eliquis CODE STATUS: Full code, verified Expected disposition: SNF, medically ready for discharge on 10/03, awaiting pre- CERT Total clinical time spent by myself addressing the patient's medical issues, reviewing all the data, and collaborating with patient's care team: 25 minutes. Charges/Coding Visit Charges Inpatient E&M: 55945 [facility] L1
--- NOTE | 2023-10-05 15:37 | CASEMGMT ---
Discharge Planning A list of?HH providers including quality and resource use data and consistent with the patient's preferred geographic region, medical needs, and insurance network was created in [employer] Guide.? This list was provided to the RN TOÑA. Sophia Roberts, Discharge Planning Asst.
--- NOTE | 2023-10-05 17:34 | CASEMGMT ---
Social Work CHIQUI spoke with pt's nijavier Nichols. Magdalena did speak with insurance and changed pt's plan to a [employer] PPO that is inclusive to the [place] area however, the change of plan will not be effective until November 02. Magdalena did complete Medicaid application for pt and submit this to S. CHIQUI spoke with Felisha at [facility] who followed up with Magdalena to assist with Medicaid application. CHIQUI updated Zunilda at [facility] of this and inquired if pt can go to [facility] under pending Medicaid. Zunilda will let this CHIQUI know. CHIQUI received phone call from Erika at [facility] who works with pt's [employer]. Erika states they will consider giving [facility] a one time contract for pt's admission for SNF stay. Clinicals faxed and [facility] updated. CHIQUI to follow up on Sunday to continue working out details with insurance company. Phone call to pt nijavier Nichols and updated on this. BERNARDINO Vallejo
[2023-10-05] MEDS: 0.9% Saline Lock 10 ML Syringe IV (19:59)
[2023-10-06] VITALS (7 sets, daily range): BP systolic 111–154; BP diastolic 43–97; PULSE 70–107; RESP 16–18; TEMP 36.4–36.8; O2SAT 93–97; BMI 14.2
[2023-10-06] MEDS: Acetaminophen 500 MG Tablet 1000 MG PO ×3 (05:42→21:51)
[2023-10-06] MEDS: Senna/Docusate Sodium 1 Tablet 2 TABLET PO (08:23)
[2023-10-06] MEDS: Magnesium Chloride 64 MG Delay Rel.Tablet 128 MG PO (08:24)
[2023-10-06] MEDS: Polyethylene Glycol 3350 17 GM PACKET PO (08:24)
[2023-10-06] MEDS: Calcium Carbonate 500 MG Tablet PO ×3 (08:24→16:51)
[2023-10-06] MEDS: Amiodarone 200 MG Tablet 100 MG PO (08:24)
[2023-10-06] MEDS: Cholecalciferol (VIT D3) 25 MCG TABLET (1,000 UNITS) PO (08:25)
[2023-10-06] MEDS: Furosemide 40 MG Tablet PO (08:25)
[2023-10-06] MEDS: Aspirin E.C. 81 MG Tablet PO (08:25)
[2023-10-06] MEDS: Metoprolol(XL)Succ 25 MG Tablet 12.5 MG PO (08:26)
[2023-10-06] MEDS: APIXABAN 2.5 MG TABLET (WCH) PO ×2 (08:28→21:39)
[2023-10-06 08:36] LABS: Hematocrit 33.3 % (37-47); Hemoglobin 10.7 g/dL (12.0-15.0); Mean Corp Hgb Conc 32.1 g/dL (32-36); Mean Corpuscular Hgb 30.3 pg (27.0-32.0); Mean Corpuscular Volume 94.3 fL (81-99); Mean Platelet Vol. 9.8 fl (6.2-12.0); Platelet Count 339 K/mm3 (150-450); RBC Distribution Width CV 16.2 % (11.6-14.6); RBC Distribution Width SD 56.2 fl (35.1-43.9); Red Blood Count 3.53 M/mm3 (4.2-5.4); White Blood Count 5.8 K/mm3 (4.4-11.0)
[2023-10-06] MEDS: Ensure Plus High Protein 120 ML LIQUID PO ×3 (08:36→16:51)
[2023-10-06] MEDS: Menthol/Lanolin/Calamine/Znox 113 GM Tube 1 APPLIC TOPICAL ×2 (08:46→21:39)
[2023-10-06 09:11] LABS: Anion Gap 2 (5-15); BUN 41 mg/dL (7-18); BUN/Creat Ratio 42.4 RATIO (10-20); Calcium,Total 8.7 mg/dL (8.5-10.1); Chloride 109 mmol/L (98-107); Creatinine, Serum 0.97 mg/dL (0.55-1.02); EST Glomerular Filtration Rate 58 mL/min (>60); Est Glom Filt Rate - Afr Amer 70 mL/min (>60); Glucose 97 mg/dL (74-106); Potassium 4.2 mmol/L (3.5-5.1); Sodium Level 141 mmol/L (136-145)
--- NOTE | 2023-10-06 09:30 | PN.HOSP_ITS ---
Reason for Visit Reason for Visit: Diagnoses Other malaise (09/29/23) Contusion of lower back and pelvis, initial encounter (09/29/23) Laceration without foreign body of left elbow, initial encounter (09/29/23) Fracture of unspecified part of neck of left femur, initial encounter for closed fracture (09/29/23) Unspecified fall, initial encounter (09/29/23) Personal history of other diseases of the circulatory system (09/29/23) Presence of automatic (implantable) cardiac defibrillator (09/29/23) Presence of unspecified artificial hip joint (09/29/23) Subjective Subjective No acute events overnight. Patient seen at bedside this morning. Sitting up comfortably in bedside chair, conversing normally, in no acute distress. She reports only mild left hip pain with movement at this time, pain has generally been well-controlled with pain medications. She denies any other acute concerns this morning. Objective Data Objective Data Vital Signs: Vital Signs Temp Pulse Resp BP Pulse Ox O2 Del Method O2 Flow Rate 98.1 F 70 16 149/54 H 94 Room Air 2 10/06/23 08:50 10/06/23 08:50 10/06/23 08:50 10/06/23 08:50 10/06/23 08:50 10/06/23 08:50 10/01/23 01:28 Oxygen Flow Rate (L/min) 2 Oxygen Delivery Method Room Air Weight: 36.429 kg Body Mass Index (BMI) 14.2 Intake & Output: Intake and Output for Last 24 Hours 10/04/23 10/05/23 10/06/23 23:59 23:59 23:59 Intake Total 700 / 700 Balance 700 / 700 Medical Nutrition Assessment Dietitian: Malnutrition Criteria Met Start: 09/30/23 15:18 Freq: Status: Active Protocol: Document 10/02/23 12:07 RMA (Rec: 10/02/23 12:08 RMA [id number]) Nutrition Malnutrition Evidence of Malnutrition Exists Yes Malnutrition (severe): Chronic Evidenced By Suboptimal Energy Intake ( Severe),Weight Loss (Moderate) ,Physical Changes (Moderate) Clinical Problem Chronic Disease or Condition Related Malnutrition Etiology suspect severe protein-calorie malnutrition in the context of chronic disease and debility related to inadequate oral/energy intake Signs/Symptoms as evidenced by BMI 17.4, ~5-6 % unintentional weight loss in undetermined timeframe, PO meeting <50% estimated nutrition needs x 1 month and moderate to severe muscle wasting/fat depletion in the clavicle, arms and legs Status Active Problem Recommendation Dietitian Recommendations/Changes Will change diet to sodium- restricted, liberalize as needed. Fluid restriction per physician as indicated. Will add 120mL ensure plus HP 3 times per day w/ medpass. Will add ensure compact w/ breakfast, fortified pudding w / lunch and magic cup w/ dinner. Lab / Micro Data 10/06/23 08:18 10/06/23 08:18 Labs: Laboratory Results - last 24 hr 10/06/23 08:18: WBC 5.8, RBC 3.53 L, Hgb 10.7 L, Hct 33.3 L, MCV 94.3, MCH 30.3, MCHC 32.1, RDW Std Deviation 56.2 H, RDW Coeff of Marie 16.2 H, Plt Count 339, MPV 9.8, Sodium 141, Potassium 4.2, Chloride 109 H, Carbon Dioxide 30.0, Anion Gap 2 L, BUN 41 H, Creatinine 0.97, Estim Creat Clear Calc 23.50, Est GFR (MDRD) Af Amer 70, Est GFR (MDRD) Non-Af 58 L, BUN/Creatinine Ratio 42.4 H, Glucose 97, Calcium 8.7 Physical Exam Const alert, oriented x3 and no apparent distress Constitutional Narrative: Elderly female, thin, sitting comfortably in bedside chair, conversing normally, in no acute distress. General Appearance: cooperative and comfortable HEENT normocephalic, head/scalp atraumatic, hearing grossly normal bilaterally and nasal mucous membranes and turbinates normal Eyes EOMs intact bilaterally and conjunctivae normal Eyes Narrative: Legally blind. Neck full ROM Chest inspection of chest normal Resp normal respiratory effort, normal air movement, no use of accessory muscles and clear to auscultation bilaterally Cardio regular rate, regular rhythm, no murmurs and peripheral pulses 2+ throughout GI normal to inspection, nondistended, normoactive bowel sounds, soft to palpation, non-tender and non-distended Back/Spine normal ROM Extremity Extremity Narrative: S/p left hip hemiarthroplasty. Left hip surgery site with no gross abnormalities. Skin no rashes or lesions noted Neuro moves all extremities and no focal motor deficits Speech: speech normal Psych mental status grossly normal Assessment & Plan Assessment/Plan (1) Fracture of femoral neck, closed: QUALIFIERS: Encounter type: initial encounter Laterality: left Qualified Code(s): S72.002A - Fracture of unspecified part of neck of left femur, initial encounter for closed fracture (2) Debility: PLAN: Plan Patient is an 88-year-old female who presented [facility] ED on 09/29/2023 after a fall with left hip pain. 1. Left femoral neck fracture due to mechanical fall, acute on chronic debility ? Orthopedics following. S/p left hip hemiarthroplasty on 09/29. Patient t olerated procedure well, no postoperative complications to this point. DVT prophylaxis with Eliquis 2.5 mg twice daily. Pain management with scheduled Tylenol, oxycodone as needed. PT/OT/case management following. Lives in assisted living side [facility], planning for discharge to SNF side there, has been complicated by insurance issues. Medically ready for discharge on 10/03, awaiting pre-CERT. 2. Mild constipation, improving ? Noted postoperatively. Improved with scheduled bowel regimen. Continue MiraLAX and senna daily. 3. Severe protein calorie malnutrition ? Met criteria on admission, see nutrition therapy note for further details. Continue Ensure 3 times daily with diet. 4. Mild anemia ? Hemoglobin 14.8 on admit, decreased to 12.8 on hospital day 2 after IV fluid administration. No previous baseline available in our records. Hemoglobin dropped from 12.8 to 11.3 after the operation as noted above, remains stable around 11. No need to monitor further CBCs at this time. Chronic medical conditions: ? CKD stage IIIb: Creatinine 1.00 on admit, at baseline. Has remained at baseline during hospitalization. ? History of ICH with subsequent severe photosensitivity ? History of CAD with stenting, hypertension, hyperlipidemia, CHF: Holding home Entresto and Farxiga. Continue home aspirin, Lasix, Toprol. ? History of arrhythmia s/p PPM/AICD placement: Continue home amiodarone. ? OA: Treatment as above. DVT prophylaxis: Eliquis CODE STATUS: Full code, verified Expected disposition: SNF, medically ready for discharge on 10/03, awaiting pre- CERT Total clinical time spent by myself addressing the patient's medical issues, reviewing all the data, and collaborating with patient's care team: 25 minutes. Charges/Coding Visit Charges Inpatient E&M: 21190 Subs Hosp L1
[2023-10-07 04:22] VITALS: BMI 15.7
[2023-10-07 04:51] VITALS: BP 136/57; PULSE 70; RESP 16; TEMP 36.4; O2SAT 95
[2023-10-07] MEDS: Acetaminophen 500 MG Tablet 1000 MG PO ×3 (06:50→21:56)
[2023-10-07] MEDS: Amiodarone 200 MG Tablet 100 MG PO (08:28)
[2023-10-07] MEDS: Polyethylene Glycol 3350 17 GM PACKET PO (08:28)
[2023-10-07] MEDS: Magnesium Chloride 64 MG Delay Rel.Tablet 128 MG PO (08:28)
[2023-10-07] MEDS: Senna/Docusate Sodium 1 Tablet 2 TABLET PO ×2 (08:28→08:29)
[2023-10-07] MEDS: Furosemide 40 MG Tablet PO (08:28)
[2023-10-07 08:29] VITALS: PULSE 97
[2023-10-07] MEDS: Aspirin E.C. 81 MG Tablet PO (08:29)
[2023-10-07] MEDS: Metoprolol(XL)Succ 25 MG Tablet 12.5 MG PO (08:29)
[2023-10-07] MEDS: Calcium Carbonate 500 MG Tablet PO ×3 (08:30→17:07)
[2023-10-07] MEDS: Cholecalciferol (VIT D3) 25 MCG TABLET (1,000 UNITS) PO (08:31)
[2023-10-07] MEDS: Ensure Plus High Protein 120 ML LIQUID PO ×3 (08:34→17:07)
[2023-10-07] MEDS: Menthol/Lanolin/Calamine/Znox 113 GM Tube 1 APPLIC TOPICAL ×2 (08:35→21:57)
[2023-10-07] MEDS: APIXABAN 2.5 MG TABLET (WCH) PO ×2 (08:38→21:55)
[2023-10-07 09:10] VITALS: BP 141/61; PULSE 97; RESP 16; TEMP 36.7; O2SAT 97
--- NOTE | 2023-10-07 11:15 | PN.HOSP_ITS ---
Reason for Visit Reason for Visit: Diagnoses Other malaise (09/29/23) Contusion of lower back and pelvis, initial encounter (09/29/23) Laceration without foreign body of left elbow, initial encounter (09/29/23) Fracture of unspecified part of neck of left femur, initial encounter for closed fracture (09/29/23) Unspecified fall, initial encounter (09/29/23) Personal history of other diseases of the circulatory system (09/29/23) Presence of automatic (implantable) cardiac defibrillator (09/29/23) Presence of unspecified artificial hip joint (09/29/23) Subjective Subjective No acute events or night. Patient seen at bedside this morning. Sitting up comfortably bedside chair, conversing normally, in no acute distress. Appears similar to previous days. No new concerns this morning. Objective Data Objective Data Vital Signs: Vital Signs Temp Pulse Resp BP Pulse Ox O2 Del Method O2 Flow Rate 98.1 F 97 16 141/61 H 97 Room Air 2 10/07/23 09:10 10/07/23 09:10 10/07/23 09:10 10/07/23 09:10 10/07/23 09:10 10/07/23 09:10 10/01/23 01:28 Oxygen Flow Rate (L/min) 2 Oxygen Delivery Method Room Air Weight: 40.3 kg Body Mass Index (BMI) 15.7 Intake & Output: Intake and Output for Last 24 Hours 10/05/23 10/06/23 10/07/23 23:59 23:59 23:59 Intake Total 500 / 750 500 / 500 Balance 500 / 750 500 / 500 Medical Nutrition Assessment Dietitian: Malnutrition Criteria Met Start: 09/30/23 15:18 Freq: Status: Active Protocol: Document 10/02/23 12:07 RMA (Rec: 10/02/23 12:08 RMA [id number]) Nutrition Malnutrition Evidence of Malnutrition Exists Yes Malnutrition (severe): Chronic Evidenced By Suboptimal Energy Intake ( Severe),Weight Loss (Moderate) ,Physical Changes (Moderate) Clinical Problem Chronic Disease or Condition Related Malnutrition Etiology suspect severe protein-calorie malnutrition in the context of chronic disease and debility related to inadequate oral/energy intake Signs/Symptoms as evidenced by BMI 17.4, ~5-6 % unintentional weight loss in undetermined timeframe, PO meeting <50% estimated nutrition needs x 1 month and moderate to severe muscle wasting/fat depletion in the clavicle, arms and legs Status Active Problem Recommendation Dietitian Recommendations/Changes Will change diet to sodium- restricted, liberalize as needed. Fluid restriction per physician as indicated. Will add 120mL ensure plus HP 3 times per day w/ medpass. Will add ensure compact w/ breakfast, fortified pudding w / lunch and magic cup w/ dinner. Lab / Micro Data 10/06/23 08:18 10/06/23 08:18 Physical Exam Const alert, oriented x3 and no apparent distress Constitutional Narrative: Elderly female, thin, sitting comfortably in bedside chair, conversing normally, in no acute distress. General Appearance: cooperative and comfortable HEENT normocephalic, head/scalp atraumatic, hearing grossly normal bilaterally and nasal mucous membranes and turbinates normal Eyes EOMs intact bilaterally and conjunctivae normal Eyes Narrative: Legally blind. Neck full ROM Chest inspection of chest normal Resp normal respiratory effort, normal air movement, no use of accessory muscles and clear to auscultation bilaterally Cardio regular rate, regular rhythm, no murmurs and peripheral pulses 2+ throughout GI normal to inspection, nondistended, normoactive bowel sounds, soft to palpation, non-tender and non-distended Back/Spine normal ROM Extremity Extremity Narrative: S/p left hip hemiarthroplasty. Left hip surgery site with no gross abnormalities. Skin no rashes or lesions noted Neuro moves all extremities and no focal motor deficits Speech: speech normal Psych mental status grossly normal Assessment & Plan Assessment/Plan (1) Fracture of femoral neck, closed: QUALIFIERS: Encounter type: initial encounter Laterality: left Qualified Code(s): S72.002A - Fracture of unspecified part of neck of left femur, initial encounter for closed fracture (2) Debility: PLAN: Plan Patient is an 88-year-old female who presented [facility] ED on 09/29/2023 after a fall with left hip pain. 1. Left femoral neck fracture due to mechanical fall, acute on chronic debility ? Orthopedics followed. S/p left hip hemiarthroplasty on 09/29. Patient tolerated procedure well, no postoperative complications to this point. DVT prophylaxis with Eliquis 2.5 mg twice daily. Pain management with scheduled Tyl enol, oxycodone as needed. PT/OT/case management following. Lives in assisted living side [facility], planning for discharge to SNF side there, has been complicated by insurance issues. Medically ready for discharge on 10/03, awaiting pre-CERT. 2. Mild constipation, improved ? Noted postoperatively. Improved with scheduled bowel regimen. Continue MiraLAX and senna daily. 3. Severe protein calorie malnutrition ? Met criteria on admission, see nutrition therapy note for further details. Continue Ensure 3 times daily with diet. 4. Mild anemia, stable ? Hemoglobin 14.8 on admit, decreased to 12.8 on hospital day 2 after IV fluid administration. No previous baseline available in our records. Hemoglobin dropped from 12.8 to 11.3 after the operation as noted above, remains stable around 11. No need to monitor further CBCs at this time. Chronic medical conditions: ? CKD stage IIIb: Creatinine 1.00 on admit, at baseline. Has remained at baseline during hospitalization. ? History of ICH with subsequent severe photosensitivity ? History of CAD with stenting, hypertension, hyperlipidemia, CHF: Holding home Entresto and Farxiga. Continue home aspirin, Lasix, Toprol. ? History of arrhythmia s/p PPM/AICD placement: Continue home amiodarone. ? OA: Treatment as above. DVT prophylaxis: Eliquis CODE STATUS: Full code, verified Expected disposition: SNF, medically ready for discharge on 10/03, awaiting pre- CERT Total clinical time spent by myself addressing the patient's medical issues, reviewing all the data, and collaborating with patient's care team: 25 minutes. Charges/Coding Visit Charges Inpatient E&M: 84584 [facility] Hosp L1
[2023-10-07 11:45] VITALS: BP 112/64; PULSE 70; RESP 16; TEMP 36.8; O2SAT 97
[2023-10-07 16:13] VITALS: BP 111/48; PULSE 70; RESP 16; TEMP 36.6; O2SAT 97
[2023-10-07 21:15] VITALS: BP 129/50; PULSE 70; RESP 16; TEMP 36.7; O2SAT 96
[2023-10-08 03:15] VITALS: BP 132/47; PULSE 70; RESP 16; TEMP 36.6; O2SAT 96
[2023-10-08] MEDS: Acetaminophen 500 MG Tablet 1000 MG PO ×3 (05:16→20:36)
[2023-10-08 08:27] VITALS: BP 157/69; PULSE 68; RESP 18; TEMP 36.3; O2SAT 97
[2023-10-08] MEDS: Ensure Plus High Protein 120 ML LIQUID PO ×2 (08:31→11:45)
[2023-10-08] MEDS: Furosemide 40 MG Tablet PO (08:32)
[2023-10-08] MEDS: Magnesium Chloride 64 MG Delay Rel.Tablet 128 MG PO (08:32)
[2023-10-08] MEDS: Senna/Docusate Sodium 1 Tablet 2 TABLET PO (08:32)
[2023-10-08] MEDS: Calcium Carbonate 500 MG Tablet PO ×3 (08:32→17:37)
[2023-10-08] MEDS: Amiodarone 200 MG Tablet 100 MG PO (08:33)
[2023-10-08 08:34] VITALS: PULSE 68
[2023-10-08] MEDS: Metoprolol(XL)Succ 25 MG Tablet 12.5 MG PO (08:34)
[2023-10-08] MEDS: Aspirin E.C. 81 MG Tablet PO (08:34)
[2023-10-08] MEDS: Cholecalciferol (VIT D3) 25 MCG TABLET (1,000 UNITS) PO (08:35)
[2023-10-08] MEDS: Polyethylene Glycol 3350 17 GM PACKET PO (08:35)
[2023-10-08] MEDS: Menthol/Lanolin/Calamine/Znox 113 GM Tube 1 APPLIC TOPICAL ×2 (08:41→20:37)
[2023-10-08] MEDS: APIXABAN 2.5 MG TABLET (WCH) PO ×2 (08:42→20:36)
--- NOTE | 2023-10-08 09:46 | CASEMGMT ---
Addendum entered by Ngoc Solitario 10/08/23 14:51: Social work Second phone call placed to [facility] and spoke with Erika. Erika states she has received needed information from [facility] and [facility] and is reviewing now. Erika states she has 48 hours to work out a contract with [facility]. Plan: [facility], when insurance is worked out BERNARDINO Levy Addendum entered by Ngoc Solitario 10/08/23 11:43: Social Work VM left with [facility]. Will await return call from insurance to discuss precert for SNF. BERNARDINO Bosch Original Note: Social Work CHIQUI met with pt and her nephew Júnior. SW provided update that insurance may offer a one time contract for SNF placement at [facility]. Also that CHIQUI has spoke with [employer] and medicaid is being pursued. Pt and Nephew agreeable to dc plan. Updated clinicals sent to [facility]. CHIQUI spoke with [facility] and they sent needed info to [facility]. CHIQUI will follow up with insurance. Physician updated. BERNARDINO Levy
--- NOTE | 2023-10-08 10:19 | PCM.TXEXTCAR ---
Diet Diet Order/Speech Therapy: 10/02/23 12:06 Diet: Sodium Restricted (MOD) Food consistency:: Regular Liquid Consistency:: Regular/Thin Type of Dietary Supplement:: Ensure Compact w/ brkfst Diet Comments: fortified pudding w/ lunch; magic cup w/ dinner Routine Orders/Code Status Suppository Frequency: Daily PRN O2 Frequency: PRN Keep PO Greater than or Equal to (%): 89 Routine Lab Work: CBC (1 week) and BMP (1 week) Code Status: Full Code Wound(s) left arm: Wound Type: Skin Tear left hip: Wound Type: Surgical Incision Suggestions for Active Care Change Position every (hours): 2 Therapies Weight Bearing: Weight bearing as tolerated Extremity Affected:: Left Lower Physical Therapy: Eval and Treat Occupational Therapy: Eval and Treat Problem/Diagnosis (1) Fracture of femoral neck, closed: Status: Acute Code(s): S72.009A - Fracture of unspecified part of neck of unspecified femur, initial encounter for closed fracture (2) Debility: Status: Acute Code(s): R53.81 - Other malaise Allergies/Procedures Done in Hospital Allergies Hofcmiv-UON-CaA Reductase Inhibitor Adverse Reaction (Mild, Verified 09/29/23 12:42) muscle aches Procedures: - (Chest x-ray/hip and pelvic x-rays) Type of Care/Length of Stay Estimated LOS: Convalescent Care Less Than 30 days Type of Care Needed: Skilled Rehab Potential: Good Prognosis: Good Additional Orders/Day of Discharge Day of Discharge: 10/08/23 Dietary and Speech Recommendations Dietitian Recommendations/Changes: Will change diet to sodium-restricted, liberalize as needed. Fluid restriction per physician as indicated. Will add 120mL ensure plus HP 3 times per day w/ medpass. Will add ensure compact w/ breakfast, fortified pudding w/ lunch and magic cup w/ dinner. Follow Up Care Please Follow Up With: Amol Yoder DO When: 1.5 weeks Discharge Plan Admission Admit Date/Time: 09/29/23 14:27 Attending Provider: Tammi Frost Primary Care Provider: Viet Lovett Consulting Providers: Mehdi Crespo; Amol Yoder; Anson Waite; Joon Yuen Instructions Patient Instructions: Bruises (Contusions), ED Skin Tear (Skin Avulsion) Discharge Orders/Prescriptions Prescriptions: No Action amiodarone 100 mg tablet 100 mg PO DAILY aspirin 81 mg tablet,delayed release (DR/EC) 81 mg PO DAILY Entresto 24-26 mg tablet 1 tab PO BID dapagliflozin propanediol [Farxiga] 10 mg tablet 10 mg PO DAILY furosemide 40 mg tablet 40 mg PO DAILY magnesium sulfate 100 mg capsule 400 mg PO DAILY metoprolol succinate 25 mg tablet extended release 24 hr 12.5 mg PO DAILY Referrals / Follow Up: Viet Lovett MD [Primary Care Provider] - 3-5 Days NOT,DEFINED [Non-Staff] - (1) Fracture of femoral neck, closed Qualifiers: Encounter type: initial encounter Laterality: left Qualified Code(s): S72.002A - Fracture of unspecified part of neck of left femur, initial encounter for closed fracture
[2023-10-08 14:27] VITALS: BP 118/48; PULSE 69; RESP 18; TEMP 37.1; O2SAT 97
--- NOTE | 2023-10-08 15:42 | CASEMGMT ---
Social Work- Pt has completed a health care POA with a living will provision naming Júnior Hays.? Documents are in pt chart at [facility]. BERNARDINO Sprague
--- NOTE | 2023-10-08 17:05 | PN.HOSP_ITS ---
Reason for Visit Reason for Visit: Left hip pain status post fall Subjective Subjective Patient denies any issues currently. Unfortunately, insurance [place] of [place] and does not cover [facility]. They are making exception and currently reviewing. Patient has been medically ready for discharge since 10/04/2023. Objective Data Objective Data Vital Signs: Vital Signs Temp Pulse Resp BP Pulse Ox O2 Del Method O2 Flow Rate 98.7 F 69 18 118/48 L 97 Room Air 2 10/08/23 14:27 10/08/23 14:27 10/08/23 14:27 10/08/23 14:27 10/08/23 14:27 10/08/23 14:27 10/01/23 01:28 Oxygen Flow Rate (L/min) 2 Oxygen Delivery Method Room Air Weight: 40.3 kg Body Mass Index (BMI) 15.7 Intake & Output: Intake and Output for Last 24 Hours 10/06/23 10/07/23 10/08/23 23:59 23:59 23:59 Intake Total 500 / 750 1050 / 1400 500 / 500 Balance 500 / 750 1050 / 1400 500 / 500 Medical Nutrition Assessment Dietitian: Malnutrition Criteria Met Start: 09/30/23 15 :18 Freq: Status: Active Protocol: Document 10/08/23 15:25 SLA (Rec: 10/08/23 15:25 SLA Desktop) Nutrition Malnutrition Evidence of Malnutrition Exists Yes Malnutrition (severe): Chronic Evidenced By Suboptimal Energy Intake ( Severe),Weight Loss (Moderate) ,Physical Changes (Moderate) Clinical Problem Chronic Disease or Condition Related Malnutrition Etiology suspect severe protein-calorie malnutrition in the context of chronic disease and debility related to inadequate oral/energy intake Signs/Symptoms as evidenced by BMI 15.7, ~9.7 % unintentional weight loss in x 1 wk, PO 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 Fluid restriction per physician as indicated. Continue 120mL ensure plus HP 3 times per day w/ medpass. Continue ensure compact w/ breakfast, fortified pudding w / lunch and magic cup w/ dinner. Rec appetite stimulant to help encourage increased po intake at meals Lab / Micro Data 10/06/23 08:18 10/06/23 08:18 Physical Exam Const alert, oriented x3, no apparent distress and no limitations; Negative for average body habitus, healthy appearing or well nourished Constitutional Narrative: Cachectic, frail, elderly, white female, sitting up in the chair at the bedside, case management/social work at bedside, patient appears comfortable and nontoxic HEENT normocephalic, head/scalp atraumatic and hearing grossly normal bilaterally Resp normal respiratory effort, normal air movement, no retractions and no use of accessory muscles Auscultation: Negative for rales, rhonchi or wheezes Cardio regular rate, regular rhythm, S1 normal heart sound, S2 normal heart sound, no murmurs, no rub, no gallops and no clicks GI normal to inspection, nondistended, normoactive bowel sounds, soft to palpation and non-tender Extremity no clubbing, cyanosis or edema Skin No no wounds Neuro oriented x3, moves all extremities and no focal motor deficits Speech: speech normal Psych mental status grossly normal and affect normal Psych Narrative: Very pleasant, interacts appropriately Assessment & Plan Assessment/Plan (1) Fracture of femoral neck, closed: QUALIFIERS: Encounter type: initial encounter Laterality: left Qualified Code(s): S72.002A - Fracture of unspecified part of neck of left femur, initial encounter for closed fracture (2) Debility: (3) S/P hip hemiarthroplasty: PLAN: Plan Left femoral neck fracture status post left hip hemiarthroplasty -Postop day 8 -Continue scheduled Tylenol -Weightbearing as tolerated -Will need SNF at discharge and currently awaiting acceptance and improve assurance approval next-patient has been medically stable for discharge since 10/04/2023 -Continue occupational and physical therapy while hospitalized Generalized weakness/debility secondary to chronic illnesses and age -Continue PT/OT as noted above -SNF discharge pending Constipation -Resolved next-continue bowel regimen with scheduled MiraLAX and senna Severe malnutrition -Dietitian is following -Continue supplements Mild anemia -Appears to be stable -Will repeat CBC in a.m. for monitoring since patient is still hospitalized CKD stage IIIb -serum creatinine 1.0 on admission and stable -Avoid nephrotoxins as able -Repeat BMP in a.m. History of ICH with subsequent severe photosensitivity -This was related to a fall and has been within the last 2 months -Monitor closely with anticoagulation for DVT prophylaxis CAD/HTN/HPL -Restart Entresto and Farxiga at discharge next-continue home aspirin next-c ontinue home Lasix -Continue home Toprol Ischemic cardiomyopathy/HFrEF -Currently compensated with no signs of decompensation -Continue home Lasix -Will recommend outpatient cardiology follow-up after discharge here as she is recently moved back to the area History of cardiac arrhythmia -History of PPM/AICD -continue home amiodarone OA -As needed pain medication as ordered DVT prophylaxis -Eliquis 2.5 mg daily for 3 weeks then stop CODE STATUS -full code Disposition: -Plan is for discharge to [facility] when patient is excepted. Patient's been medically ready for discharge since 10/04/2023. Charges/Coding Visit Charges Inpatient E&M: 37167 Subs Hosp L2
[2023-10-08 20:00] VITALS: RESP 15; O2SAT 98
[2023-10-08 20:30] VITALS: BP 118/44; PULSE 70; RESP 15; TEMP 36.2; O2SAT 98
[2023-10-09 03:00] VITALS: BP 137/56; PULSE 69; RESP 15; TEMP 36.2; O2SAT 97
[2023-10-09] MEDS: Acetaminophen 500 MG Tablet 1000 MG PO ×3 (05:16→22:54)
[2023-10-09 07:24] LABS: Hematocrit 33.9 % (37-47); Hemoglobin 10.7 g/dL (12.0-15.0); Mean Corp Hgb Conc 31.6 g/dL (32-36); Mean Corpuscular Hgb 30.2 pg (27.0-32.0); Mean Corpuscular Volume 95.8 fL (81-99); Mean Platelet Vol. 9.9 fl (6.2-12.0); Platelet Count 450 K/mm3 (150-450); RBC Distribution Width SD 57.1 fl (35.1-43.9); Red Blood Count 3.54 M/mm3 (4.2-5.4); White Blood Count 8.3 K/mm3 (4.4-11.0)
[2023-10-09 07:42] LABS: Anion Gap 3 (5-15); BUN 39 mg/dL (7-18); BUN/Creat Ratio 40.4 RATIO (10-20); Calcium,Total 8.7 mg/dL (8.5-10.1); Chloride 109 mmol/L (98-107); Creatinine, Serum 0.97 mg/dL (0.55-1.02); EST Glomerular Filtration Rate 58 mL/min (>60); Est Glom Filt Rate - Afr Amer 70 mL/min (>60); Glucose 100 mg/dL (74-106); Potassium 4.4 mmol/L (3.5-5.1); Sodium Level 139 mmol/L (136-145)
[2023-10-09] MEDS: Calcium Carbonate 500 MG Tablet PO ×3 (08:15→16:15)
[2023-10-09] MEDS: APIXABAN 2.5 MG TABLET (WCH) PO ×2 (08:15→22:54)
[2023-10-09] MEDS: Furosemide 40 MG Tablet PO (08:15)
[2023-10-09 08:16] VITALS: PULSE 70
[2023-10-09] MEDS: Metoprolol(XL)Succ 25 MG Tablet 12.5 MG PO (08:16)
[2023-10-09] MEDS: Polyethylene Glycol 3350 17 GM PACKET PO (08:16)
[2023-10-09] MEDS: Amiodarone 200 MG Tablet 100 MG PO (08:17)
[2023-10-09] MEDS: Senna/Docusate Sodium 1 Tablet 2 TABLET PO (08:17)
[2023-10-09] MEDS: Magnesium Chloride 64 MG Delay Rel.Tablet 128 MG PO (08:17)
[2023-10-09] MEDS: Cholecalciferol (VIT D3) 25 MCG TABLET (1,000 UNITS) PO (08:17)
[2023-10-09] MEDS: Aspirin E.C. 81 MG Tablet PO (08:18)
[2023-10-09] MEDS: Menthol/Lanolin/Calamine/Znox 113 GM Tube 1 APPLIC TOPICAL ×2 (08:18→22:54)
[2023-10-09] MEDS: Ensure Plus High Protein 120 ML LIQUID PO ×2 (08:25→16:15)
[2023-10-09 09:33] VITALS: BP 142/56; PULSE 71; RESP 16; TEMP 36.6; O2SAT 98
[2023-10-09 11:16] VITALS: BP 107/52; PULSE 70; RESP 16; TEMP 36.7; O2SAT 98
--- NOTE | 2023-10-09 11:26 | CASEMGMT ---
Addendum entered by Joann Lou 10/09/23 14:26: Social Work SW received a message back from Ofelia at [facility] stating that they have not heard from pt's insurance. SW spoke w/pt's niece Magdalena( to [facility]), she called in to ask for updates. SW explained we have not heard back from insurance, we are still waiting. SW explained will keep her updated if we hear anything else. CHIQUI sent an email to Felisha goldberg [facility], to inquire about a pending Medicaid number. CHIQUI sent Zunilda at [facility] a message via [employer] to inquire if they would consider taking pt with pending Medicaid. CHIQUI will continue to follow. MAYTE Nava Original Note: Social Work Pt is ready for discharge. SW called [facility], message left for Zuinlda inquiring if she has heard from insurance. CHIQUI also called Erika at [facility] inquiring about the one time contract. SW let a message for clarification on the time frame, if it is 48 actual hours they have to work out a contract, or 48 business hours. SW will await calls back. MAYTE Nava
[2023-10-09 14:46] VITALS: BP 103/43; PULSE 67; RESP 16; TEMP 36.5; O2SAT 96
--- NOTE | 2023-10-09 15:22 | CASEMGMT ---
Addendum entered by Joann Lou 10/09/23 15:58: Social Work [facility] has not yet heard back from insurance, Zunilda states she hopes they have the correct fax number. SW sent her Erika's phone number to verify the fax they have on file. CHIQUI will continue to follow, it is anticipated we will be able to get pt to [facility] on Sunday. CHIQUI updated Magdalena, she will let her /POA know that it is anticipated pt will go to [facility] tomorrow. MAYTE Nava Original Note: Social Work SW called Erika again from [facility]. She informed SW that the contract should be going over to [facility] today, and once that happens it is up to the senior living if they accept the contract. If they do pt can admit any time. CHIQUI sent Zunilda a message in [employer]! letting her know the above information and to let SW know as soon as they are able to take pt. CHIQUI will continue to follow. MAYTE Nava
--- NOTE | 2023-10-09 16:07 | PCM.PN.HOSP ---
Reason for Visit Reason for Visit: Left hip pain status post fall Subjective Subjective Patient reports her only complaint is that she is not sleeping well at night due to the bed being poor. No other complaints at this time. I did inform her we are still waiting for insurance to approve her discharge to rehab. She voices frustration with the process but no frustration with us. Objective Data Objective Data Vital Signs: Vital Signs Temp Pulse Resp BP Pulse Ox O2 Del Method O2 Flow Rate 97.7 F L 67 16 103/43 L 96 Room Air 2 10/09/23 14:46 10/09/23 14:46 10/09/23 14:46 10/09/23 14:46 10/09/23 14:46 10/09/23 14:46 10/01/23 01:28 Oxygen Flow Rate (L/min) 2 Oxygen Delivery Method Room Air Weight: 40.3 kg Body Mass Index (BMI) 15.7 Intake & Output: Intake and Output for Last 24 Hours 10/07/23 10/08/23 10/09/23 23:59 23:59 23:59 Intake Total 1050 / 1400 500 / 500 Balance 1050 / 1400 500 / 500 Medical Nutrition Assessment Dietitian: Malnutrition Criteria Met Start: 09/30/23 15:18 Freq: Status: Active Protocol: Document 10/08/23 15:25 SLA (Rec: 10/08/23 15:25 SLA Desktop) Nutrition Malnutrition Evidence of Malnutrition Exists Yes Malnutrition (severe): Chronic Evidenced By Suboptimal Energy Intake ( Severe),Weight Loss (Moderate) ,Physical Changes (Moderate) Clinical Problem Chronic Disease or Condition Related Malnutrition Etiology suspect severe protein-calorie malnutrition in the context of chronic disease and debility related to inadequate oral/energy intake Signs/Symptoms as evidenced by BMI 15.7, ~9.7 % unintentional weight loss in x 1 wk, PO meeting <50% 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 Fluid restriction per physician as indicated. Continue 120mL ensure plus HP 3 times per day w/ medpass. Continue ensure compact w/ breakfast, fortified pudding w / lunch and magic cup w/ dinner. Rec appetite stimulant to help encourage increased po intake at meals Lab / Micro Data 10/09/23 07:11 10/09/23 07:11 Labs: Laboratory Results - last 24 hr 10/09/23 07:11: WBC 8.3, RBC 3.54 L, Hgb 10.7 L, Hct 33.9 L, MCV 95.8, MCH 30.2, MCHC 31.6 L, RDW Std Deviation 57.1 H, RDW Coeff of Marie 16.0 H, Plt Count 450, MPV 9.9, Sodium 139, Potassium 4.4, Chloride 109 H, Carbon Dioxide 27.0, Anion Gap 3 L, BUN 39 H, Creatinine 0.97, Estim Creat Clear Calc 26.00, Est GFR (MDRD) Af Amer 70, Est GFR (MDRD) Non-Af 58 L, BUN/Creatinine Ratio 40.4 H, Glucose 100, Calcium 8.7 Physical Exam Narrative Patient has no complaints at this time. States her pain is fairly well-controlled. Discussed discharge issues and patient voices understanding. Const alert, oriented x3, no apparent distress and no limitations; Negative for average body habitus, healthy appearing or well nourished Constitutional Narrative: Cachectic, frail, elderly, white female, sitting up in the chair at the bedside, therapy services are at the bedside doing exercises with her while sitting up in a chair, patient appears comfortable and nontoxic HEENT normocephalic, head/scalp atraumatic and moist oral mucous membranes Psych mental status grossly normal and affect normal Psych Narrative: Very pleasant, interacts appropriately Assessment & Plan Assessment/Plan (1) Fracture of femoral neck, closed: QUALIFIERS: Encounter type: initial encounter Laterality: left Qualified Code(s): S72.002A - Fracture of unspecified part of neck of left femur, initial encounter for closed fracture (2) Debility: (3) S/P hip hemiarthroplasty: PLAN: Plan Left femoral neck fracture status post left hip hemiarthroplasty -Postop day 9 -Continue scheduled Tylenol -Weightbearing as tolerated -Will need SNF at discharge and currently awaiting acceptance and improve assurance approval -patient has been medically stable for discharge since 10/04/2023 -Continue occupational and physical therapy while hospitalized Generalized weakness/debility secondary to chronic illnesses and age -Continue PT/OT as noted above -SNF discharge pending Constipation -Resolved next-continue bowel regimen with scheduled MiraLAX and senna Severe malnutrition -Dietitian is following -Continue supplements Mild anemia -Appears to be stable -Will repeat CBC in a.m. for monitoring since patient is still hospitalized CKD stage IIIb -serum creatinine 1.0 on admission and stable -Avoid nephrotoxins as able -Repeat BMP in a.m. History of ICH with subsequent severe photosensitivity -This was related to a fall and has been within the last 2 months -Monitor closely with anticoagulation for DVT prophylaxis CAD/HTN/HPL -Restart Entresto and Farxiga at discharge next-continue home aspirin next-continue home Lasix -Continue home Toprol Ischemic cardiomyopathy/HFrEF -Currently compensated with no signs of decompensation -Continue home Lasix -Will recommend outpatient cardiology follow-up after discharge here as she is recently moved back to the area History of cardiac arrhythmia -History of PPM/AICD -continue home amiodarone OA -As needed pain medication as ordered DVT prophylaxis -Eliquis 2.5 mg daily for 3 weeks then stop CODE STATUS -full code Disposition: -Plan is for discharge to [facility] when patient is excepted. Patient's been medically ready for discharge since 10/04/2023. Charges/Coding Visit Charges Inpatient E&M: 25890 Subs Hosp L1
[2023-10-09 22:40] VITALS: BP 136/44; PULSE 69; RESP 18; TEMP 36.6; O2SAT 95
[2023-10-10 02:23] VITALS: BP 119/60; PULSE 69; RESP 18; TEMP 36.3; O2SAT 96
[2023-10-10] MEDS: Acetaminophen 500 MG Tablet 1000 MG PO (05:32)
[2023-10-10 05:45] VITALS: BP 149/66; PULSE 70; RESP 18; TEMP 36.5; O2SAT 95
[2023-10-10] MEDS: Aspirin E.C. 81 MG Tablet PO (08:12)
[2023-10-10] MEDS: Magnesium Chloride 64 MG Delay Rel.Tablet 128 MG PO (08:12)
[2023-10-10] MEDS: APIXABAN 2.5 MG TABLET (WCH) PO (08:12)
[2023-10-10] MEDS: Amiodarone 200 MG Tablet 100 MG PO (08:12)
[2023-10-10] MEDS: Calcium Carbonate 500 MG Tablet PO ×2 (08:13→12:30)
[2023-10-10] MEDS: Furosemide 40 MG Tablet PO (08:13)
[2023-10-10 08:14] VITALS: PULSE 70
[2023-10-10] MEDS: Metoprolol(XL)Succ 25 MG Tablet 12.5 MG PO (08:14)
[2023-10-10] MEDS: Polyethylene Glycol 3350 17 GM PACKET PO (08:14)
[2023-10-10] MEDS: Cholecalciferol (VIT D3) 25 MCG TABLET (1,000 UNITS) PO (08:15)
[2023-10-10] MEDS: Ensure Plus High Protein 120 ML LIQUID PO (08:19)
[2023-10-10] MEDS: Menthol/Lanolin/Calamine/Znox 113 GM Tube 1 APPLIC TOPICAL (08:20)
[2023-10-10 09:37] VITALS: BP 132/55; PULSE 70; RESP 16; TEMP 36.5; O2SAT 97
--- NOTE | 2023-10-10 10:37 | DS.PCM_ITS ---
Providers Date of Admission: 09/29/23 Date of Discharge: 10/10/23 Primary Care Physician: Dr. Viet Lovett MD Consultations 10/01/23 11:38 Consult: Orthopedics Routine Consulting Provider: Amol Yoder Reason for Consult: fx left hip EMERGENT Consult: Yes MD Notified: Yes Date Notified: 10/01/23 Time Notified: 11:39 Method of Notification: Verbal Reason For Visit: LEFT FEMORAL NECK FRACTURE AFTER MECHANICAL FALL. Diagnosis Discharge Diagnosis (1) Fracture of femoral neck, closed: Status: Acute Code(s): S72.009A - Fracture of unspecified part of neck of unspecified femur, initial encounter for closed fracture Qualifiers: Encounter type: initial encounter Laterality: left Qualified Code(s): S72.002A - Fracture of unspecified part of neck of left femur, initial encounter for closed fracture (2) Debility: Status: Acute Code(s): R53.81 - Other malaise Medications at Discharge Home Medications amiodarone 100 mg tablet 100 mg PO DAILY heart failure 09/29/23 aspirin 81 mg tablet,delayed release 81 mg PO DAILY cardiac 09/29/23 dapagliflozin propanediol 10 mg tablet (Farxiga) 10 mg PO DAILY renal failure 09/29/23 furosemide 40 mg tablet 40 mg PO DAILY heart failure 09/29/23 magnesium sulfate 100 mg capsule 400 mg PO DAILY muscle cramps 09/29/23 metoprolol succinate 25 mg tablet,extended release 24 hr 12.5 mg PO DAILY BP 09/29/23 sacubitril 24 mg-valsartan 26 mg tablet (Entresto) 1 tab PO BID heart 09/29/23 acetaminophen 500 mg tablet 1,000 mg (2 x 500 mg) PO Q8 #0 tabs 10/08/23 apixaban 5 mg tablet (Eliquis) 2.5 mg (1/2 x 5 mg) PO BID #0 tabs 10/08/23 calcium carbonate 500 mg (2.5 x 200 mg calcium (500 mg)) PO TIDCM #0 tabs 10/08/23 cholecalciferol (vitamin D3) 25 mcg (1,000 unit) tablet 25 mcg PO DAILY #0 tabs 10/08/23 food supplemt, lactose-reduced 0.08 gram-1.5 kcal/mL oral liquid (Ensure Plus High Protein) 120 ml PO TIDCM #0 mL 10/08/23 menthol 0.44 %-zinc oxide 20.6 % topical ointment (Calmoseptine) 1 applic topical BID #0 grams 10/08/23 oxycodone 5 mg tablet 2.5 mg (1/2 x 5 mg) PO Q6H PRN pain 2 days #4 tabs 10/08/23 sennosides 8.6 mg-docusate sodium 50 mg tablet (Stool Softener-Stimulant Laxative) 2 tab PO BID #0 tabs 10/08/23 Hospital Course Operations total hip replacement (Left) Procedures 2-D Echocardiogram, EKG and - (Chest x-ray/hip and pelvic x-rays) Summary of Care Provided Minutes Spent on Discharge: 38 Hospital Course: Mrs. Lozano is an 88-year-old white female who presented to emergency department at [facility] on 09/29/2023 after suffering a mechanical fall and having resultant left hip pain. She did have a fall about 6 weeks ago that resulted in ICH with subsequent severe photosensitivity. She reported that her symptoms began about an hour prior to arrival when she lost her balance after her knee buckled and gave out while she was using a walker in the attempts of ambulating. She landed on her left hip, elbow, and forearm and sustained some left upper extremity skin tears as well as the inability to ambulate. She denies any him trauma after the fall but did complain of significant hip pain in the attempt to move at all. She and her delano goldstein moved back here from [place] and currently has [employer] Medicare product out of [place]. Vital signs on presentation showed temperature of 97.9, heart rate 70, respiratory rate was 16, blood pressure was 156/68 and pulse ox was 94% on room air. CBC on presentation was unremarkable. Chemistry panel on presentation was overtly unremarkable. She was noted to have significant cardiac history and a lipid profile was done preoperatively showing an elevated LDL however the patient is not tolerant of statins therefore is not taking any. With her previous cardiac history preop EKG and echocardiogram were performed. Echo showed an EF of 40 to 45% with evidence of diastolic dysfunction, 1+ aortic valve insufficiency and hypokinesis of the apex. She was taken the operating room on 09/30/2023 at which time a left total hip arthroplasty was performed. The patient tolerated the procedure well and postoperative recommendations were weightbearing as tolerated, low-dose Eliquis 2.5 mg p.o. twice daily for 3 weeks and ongoing rehab services. Her dressing is to be left undisturbed for 7 days postop then removed and cleaned with antibacterial soap and warm water. Dressing can be replaced daily at that point. She is also to follow-up in the outpatient setting 2 weeks after discharge for follow-up x-rays and wound check. Patient was seen by physical and Occupational Therapy and deemed appropriate for ongoing rehab services after discharge. Unfortunately, her insurance complicated discharge as it was a product of [place]. [facility] has set up an agreement with [facility] to accept the patient on a one-time basis with a one-time private contract until her insurance is transitioned to a local product which will be on November 03, 2023. Patient was able to be discharged in s table condition on 10/10/2023. I have asked that she follow-up with orthopedic surgery within the next week and a half and established with a account advisor here after she has been discharged with her history and reduced EF on current echocardiogram. 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 States she has some lower leg pain but no hip pain at all Const alert, oriented x3, no apparent distress and no limitations; Negative for average body habitus, healthy appearing or well nourished Constitutional Narrative: Cachectic, elderly, white female, sitting up in the chair at the bedside, has just gotten on ambulating with therapy, patient appears comfortable and nontoxic General Appearance: cooperative, comfortable, well kempt and frail Orientation / Consciousness: awake, oriented to person, oriented to place and or iented to time Exam Limitations: no limitations Nutritional Appearance: cachectic HEENT normocephalic, head/scalp atraumatic and hearing grossly normal bilaterally HEENT Narrative: Dentures in place, Mallampati 2, no thrush Eyes Eyes Narrative: Patient with extreme photosensitivity and glasses in place Neck no lymphadenopathy and supple Neck Narrative: Trachea midline, no noted thyroid enlargement Resp normal respiratory effort, no retractions, no use of accessory muscles and clear to auscultation bilaterally Auscultation: Negative for rales, rhonchi or wheezes Cardio regular rate, regular rhythm, S1 normal heart sound, S2 normal heart sound, no murmurs, no rub, no gallops and no clicks GI normal to inspection, nondistended, normoactive bowel sounds, soft to palpation and non-tender Extremity no clubbing, cyanosis or edema Skin no rashes or lesions noted, No no wounds, skin turgor normal and no jaundice Skin Narrative: Left arm skin tear is noted with bandages in place Neuro oriented x3, moves all extremities and no focal motor deficits Speech: speech normal Psych affect normal Psych Narrative: Very pleasant, interacts appropriately Medical Records Data Medical Nutrition Assessment Dietitian: Malnutrition Criteria Met Start: 09/30/23 15:18 Freq: Status: Active Protocol: Document 10/02/23 12:07 RMA (Rec: 10/02/23 12:08 RMA [id number]) Nutrition Malnutrition Evidence of Malnutrition Exists Yes Malnutrition (severe): Chronic Evidenced By Suboptimal Energy Intake ( Severe),Weight Loss (Moderate) ,Physical Changes (Moderate) Clinical Problem Chronic Disease or Condition Related Malnutrition Etiology suspect severe protein-calorie malnutrition in the context of chronic disease and debility related to inadequate oral/energy intake Signs/Symptoms as evidenced by BMI 17.4, ~5-6 % unintentional weight loss in undetermined timeframe, PO meeting <50% estimated nutrition needs x 1 month and moderate to severe muscle wasting/fat depletion in the clavicle, arms and legs Status Active Problem Recommendation Dietitian Recommendations/Changes Will change diet to sodium- restricted, liberalize as needed. Fluid restriction per physician as indicated. Will add 120mL ensure plus HP 3 times per day w/ medpass. Will add ensure compact w/ breakfast, fortified pudding w / lunch and magic cup w/ dinner. Weight / BMI Weight Weight: 40.3 kg Body Mass Index (BMI) 15.7 ABG / Lab / Microbiology Data 10/09/23 07:11 10/09/23 07:11 D/C Instructions Discharge Diet: Low fat / Low cholesterol Please Follow Up With: Amol Yoder, DO Meaningful Use Info Meaningful Use Meaningful Use Diagnoses (Choose all that apply): None applicable Ischemic Stroke Statin Dosing Therapy Reference: STATIN DOSE THERAPY REFERENCE: * Patients > 75 years receive moderate or high dose statin therapy. * Patients 75 years or YOUNGER should receive HIGH intensity statin dose unless contraindicated. You will be required to document reason for non-treatment if statin daily dose does not meet guidelines. HIGH DOSE STATIN THERAPY DAILY Atorvastatin > than or = to 40 mg Rosuvastatin > than or = to 20 mg Amlodipine + Atorvastatin > than or = to 2.5/40 mg Ezetimibe + Simvastatin 10/80 mg Simvastatin 80mg Discharge Plan Admission Admit Date/Time: 09/29/23 14:27 Primary Reason for Your Visit: Left hip pain after mechanical fall Attending Provider: Tammi Frost Primary Care Provider: Viet Lovett Consulting Providers: Mehdi Crespo; Amol Yoder; Anson Waite; Joon Yuen Instructions Patient Instructions: Bruises (Contusions), ED Skin Tear (Skin Avulsion) Additional Instructions / Restrictions: Dressing to be left undisturbed for 7 days postop then removed and cleaned daily with antibacterial soap and warm water and replace daily after that point. Discharge Orders/Prescriptions Prescriptions: New acetaminophen 500 mg Tablet 1,000 mg PO Q8 Qty: 0 0RF Eliquis 5 mg Tablet 2.5 mg PO BID Qty: 0 0RF Rx Instructions: X 3 weeks calcium carbonate 200 mg calcium (500 mg) Tablet,Chewable 500 mg PO TIDCM Qty: 0 0RF oxycodone 5 mg Tablet 2.5 mg PO Q6H PRN (Reason: pain) 2 Days Qty: 4 0RF cholecalciferol (vitamin D3) 25 mcg (1,000 unit) Tablet 25 mcg PO DAILY Qty: 0 0RF menthol-zinc oxide [Calmoseptine] 0.44-20.6 % Ointment 1 applic topical BID Qty: 0 0RF Protocol: *Topical Application Instructions APPLICATION INSTRUCTIONS: buttocks Ensure Plus High Protein 0.08 gram-1.5 kcal/mL Liquid 120 ml PO TIDCM Qty: 0 0RF sennosides-docusate sodium [Stool Softener-Stimulant Laxat] 8.6-50 mg Tablet 2 tab PO BID Qty: 0 0RF Continued amiodarone 100 mg tablet 100 mg PO DAILY aspirin 81 mg tablet,delayed release (DR/EC) 81 mg PO DAILY Entresto 24-26 mg tablet 1 tab PO BID dapagliflozin propanediol [Farxiga] 10 mg tablet 10 mg PO DAILY furosemide 40 mg tablet 40 mg PO DAILY magnesium sulfate 100 mg capsule 400 mg PO DAILY metoprolol succinate 25 mg tablet extended release 24 hr 12.5 mg PO DAILY Referrals / Follow Up: Amol Yoder DO [Med Staff - Active Staff] - See Referral Note (1-1/2 weeks) Stas Wilson MD [Med Staff - Active Staff] - See Referral Note (1 to 2 months after discharge) Viet Lovett MD [Primary Care Provider] - See Referral Note (After discharge from [facility] facility) NOT,DEFINED [Non-Staff] - Disposition Disposition (needs filled in before D/C Order can be placed): [facility] Charges/Coding Visit Charges Inpatient E&M: 48041 SNF Disch >30 Min
--- NOTE | 2023-10-10 10:49 | CASEMGMT ---
Social Work SW spoke with [facility] and precert has been obtained and pt can admit to [facility] today. Physician updated and pt is ready for dc today. SW met with pt and updated and pt is agreeable to dc plan. Phone call to melinda Nichols and updated on this and she is agreeable to dc and will notify her . DC personalized living assistant updated and to complete discharge. Disposition: [facility], skilled level of care BERNARDINO Levy
--- NOTE | 2023-10-10 10:50 | PHA.DC_ITS ---
Pharmacy [facility] has performed discharge medication reconciliation for this patient. The patient's discharge medication list was reviewed for discrepancies and discrepancies were resolved. Medications at Discharge Home Medications amiodarone 100 mg tablet 100 mg PO DAILY heart failure 09/29/23 aspirin 81 mg tablet,delayed release 81 mg PO DAILY cardiac 09/29/23 dapagliflozin propanediol 10 mg tablet (Farxiga) 10 mg PO DAILY renal failure 09/29/23 furosemide 40 mg tablet 40 mg PO DAILY heart failure 09/29/23 magnesium sulfate 100 mg capsule 400 mg PO DAILY muscle cramps 09/29/23 metoprolol succinate 25 mg tablet,extended release 24 hr 12.5 mg PO DAILY BP 09/29/23 sacubitril 24 mg-valsartan 26 mg tablet (Entresto) 1 tab PO BID heart 09/29/23 acetaminophen 500 mg tablet 1,000 mg (2 x 500 mg) PO Q8 #0 tabs 10/08/23 apixaban 5 mg tablet (Eliquis) 2.5 mg (1/2 x 5 mg) PO BID #0 tabs 10/08/23 calcium carbonate 500 mg (2.5 x 200 mg calcium (500 mg)) PO TIDCM #0 tabs 10/08/23 cholecalciferol (vitamin D3) 25 mcg (1,000 unit) tablet 25 mcg PO DAILY #0 tabs 10/08/23 food supplemt, lactose-reduced 0.08 gram-1.5 kcal/mL oral liquid (Ensure Plus High Protein) 120 ml PO TIDCM #0 mL 10/08/23 menthol 0.44 %-zinc oxide 20.6 % topical ointment (Calmoseptine) 1 applic topical BID #0 grams 10/08/23 oxycodone 5 mg tablet 2.5 mg (1/2 x 5 mg) PO Q6H PRN pain 2 days #4 tabs 10/08/23 sennosides 8.6 mg-docusate sodium 50 mg tablet (Stool Softener-Stimulant Laxative) 2 tab PO BID #0 tabs 10/08/23
--- NOTE | 2023-10-10 11:17 | CASEMGMT ---
Discharge Planning Discharge orders, signed med list, covid results, and transport time sent to [facility] via [facility]. Physicians will transport patient by wheelchair at 1p. Nursing, SW, and patients emergency contact (Magdalena) updated. Sophia Roberts, Discharge Planning Asst.
== END 2023-10-10 13:20 | disposition skilled nursing facility (03) | DRG 521 ==
LOC: ED 13:31 → MS3 18:45
PROVIDERS: Hospitalist; Internal Medicine; Orthopaedic Surgery; Admitting Provider Internal Medicine; Emergency Provider Emergency Medicine; PCP Family Medicine; Visit Provider Internal Medicine
PROC: 0SRS0JA Replacement of Left Hip Joint, Femoral Surface with Synthetic Substitute, Uncemented, Open Approach (ICD-10-PCS; CPT 27125; principal; 2023-09-30 10:30)
DX: S72.002A Fracture of unspecified part of neck of left femur, initial encounter for closed fracture (principal); E43 Unspecified severe protein-calorie malnutrition; I13.0 Hypertensive heart and chronic kidney disease with heart failure and stage 1 through stage 4 chronic kidney disease, or unspecified chronic kidney disease; I50.42 Chronic combined systolic (congestive) and diastolic (congestive) heart failure; S42.292A Other displaced fracture of upper end of left humerus, initial encounter for closed fracture; Z68.1 Body mass index [BMI] 19.9 or less, adult; D64.9 Anemia, unspecified; E78.5 Hyperlipidemia, unspecified; S20.229A Contusion of unspecified back wall of thorax, initial encounter; H54.8 Legal blindness, as defined in USA; N18.32 Chronic kidney disease, stage 3b; I35.1 Nonrheumatic aortic (valve) insufficiency; I25.10 Atherosclerotic heart disease of native coronary artery without angina pectoris; M19.90 Unspecified osteoarthritis, unspecified site; I25.5 Ischemic cardiomyopathy; S51.802A Unspecified open wound of left forearm, initial encounter; K59.00 Constipation, unspecified; R54 Age-related physical debility; W19.XXXA Unspecified fall, initial encounter; Z95.810 Presence of automatic (implantable) cardiac defibrillator; Z95.5 Presence of coronary angioplasty implant and graft; Z79.82 Long term (current) use of aspirin; R73.9 Hyperglycemia, unspecified; R29.6 Repeated falls
CPT/HCPCS: 36415; 71045; 72170; 73502; 80048; 80053; 80061; 82962; 83036; 83735; 84100; 85025; 85027; 86850; 86900; 86901; 87811; 88305; 88311; 90715; 93005; 93306; 94668; 97110; 97116; 97162; 97166; 97530; 97535; 97802; 97803; 99284; C1776; J7030; J7120; A4216; J2405

== ENCOUNTER → 2023-10-23 | Outpatient (REF) | payer MEDICARE, SELFPAY ==
[2023-10-24 07:33] LABS: Color, Urine Yellow (Yellow); Glucose, Dipstick 1000 mg/dl (Normal); Ketone-Dipstick 5 mg/dl (Negative); Leukocyte Esterase-Dipstick 500 /ul (Negative); Nitrite-Dipstick Negative (Negative); Occult Blood-Urine 250 /ul (Negative); Protein-Dipstick 100 mg/dl (Negative); Specific Gravity, Urine 1.015 (1.002-1.030); Urine Bilirubin Dipstick Negative (Negative); Urine Clarity Cloudy (Clear); Urine Urobilinogen Normal (Normal); Urine pH 6.5 (5.0 - 8.0)
== END ==
LOC: OLS.WHLEAS 10:00
PROVIDERS: PCP Family Medicine; Referring Provider Internal Medicine; Visit Provider Internal Medicine
DX: N39.0 Urinary tract infection, site not specified (principal)
CPT/HCPCS: 81002; 87086; 87088; 87186

== ENCOUNTER → 2023-10-30 | Outpatient (REF) | payer MEDICARE, SELFPAY ==
[2023-10-30 08:30] LABS: Absolute Lymphocyte Count 1.12 X10^3/uL (0.83-4.51); Absolute Neutrophil Count 4.6 X10^3/uL (2.0-7.7); Basophil# 0.04 X10^3/uL; Basophil% 0.6 % (0-1); Eosinophil# 0.35 X10^3/uL; Hematocrit 34.6 % (37-47); Hemoglobin 10.8 g/dL (12.0-15.0); Lymphocyte # 1.12 X10^3/ul (0.83-4.51); Lymphocyte % 16.1 % (19-41); Mean Corp Hgb Conc 31.2 g/dL (32-36); Mean Corpuscular Hgb 30.9 pg (27.0-32.0); Mean Corpuscular Volume 98.9 fL (81-99); Mean Platelet Vol. 9.8 fl (6.2-12.0); Monocyte# 0.71 X10^3/uL; Monocyte% 10.2 % (0-10); NRBC Flagged by Analyzer 0 % (0-5); Neutrophil # 4.63 X10^3/uL (2.7-7.7); Neutrophil % 66.8 % (47-70); Platelet Count 469 K/mm3 (150-450); RBC Distribution Width CV 15.9 % (11.6-14.6); RBC Distribution Width SD 57.8 fl (35.1-43.9); White Blood Count 6.9 K/mm3 (4.4-11.0)
[2023-10-30 09:31] LABS: Anion Gap 7 (5-15); BUN 35 mg/dL (7-18); BUN/Creat Ratio 29.7 RATIO (10-20); Calcium,Total 9.1 mg/dL (8.5-10.1); Chloride 106 mmol/L (98-107); Creatinine, Serum 1.18 mg/dL (0.55-1.02); EST Glomerular Filtration Rate 46 mL/min (>60); Est Glom Filt Rate - Afr Amer 56 mL/min (>60); Ferritin 121 ng/mL (8-252); Glucose 107 mg/dL (74-106); Iron 49 ug/dL (50-170); Iron Binding Capacity,Total 267 ug/dL (250-450); Potassium 4.3 mmol/L (3.5-5.1); Sodium Level 139 mmol/L (136-145)
== END ==
LOC: OLS.WHLEAS 05:00
PROVIDERS: PCP Family Medicine; Visit Provider Internal Medicine
DX: I50.9 Heart failure, unspecified (principal); D64.9 Anemia, unspecified
CPT/HCPCS: 36415; 80048; 82728; 83540; 83550; 85025

== ENCOUNTER → 2023-11-05 | Outpatient (REF) | payer MEDICARE, SELFPAY ==
[2023-11-05 07:04] LABS: Mucous, Urine 0 SEEN /hpf (<or=2+); Red Blood Cells-Urine 0 SEEN /hpf (0-5)
[2023-11-05 07:11] LABS: Color, Urine Yellow (Yellow); Glucose, Dipstick 1000 mg/dl (Normal); Ketone-Dipstick Negative (Negative); Leukocyte Esterase-Dipstick Negative /ul (Negative); Nitrite-Dipstick Negative (Negative); Occult Blood-Urine Negative /ul (Negative); Protein-Dipstick Negative (Negative); Specific Gravity, Urine 1.015 (1.002-1.030); Urine Bilirubin Dipstick Negative (Negative); Urine Clarity Cloudy (Clear); Urine Urobilinogen Normal (Normal)
[2023-11-05 07:51] LABS: Amorphous Sediment 3+; Bacteria 1+ /hpf (None Seen); Squamous Epithelial Cells - UA 0-5 SEEN /hpf (5-10)
[2023-11-05 07:52] LABS: White Blood Cells 0-5 SEEN /hpf (0-5)
== END ==
LOC: OLS.WHLEAS 03:00
PROVIDERS: PCP Family Medicine; Visit Provider Internal Medicine
DX: N39.0 Urinary tract infection, site not specified (principal)
CPT/HCPCS: 81001; 87086; 87088

== ENCOUNTER → 2023-11-15 | Outpatient (REF) | payer MEDICARE, SELFPAY ==
[2023-11-15 10:48] LABS: Thyroid Stim Hormone (TSH) 5.08 uIU/mL (0.358-3.74)
== END ==
LOC: OLS.WHLEAS 04:00
PROVIDERS: PCP Family Medicine; Referring Provider Internal Medicine; Visit Provider Internal Medicine
DX: E03.9 Hypothyroidism, unspecified (principal)
CPT/HCPCS: 36415; 84443

== ENCOUNTER → 2023-11-22 | Outpatient (REF) | payer MEDICARE, SELFPAY ==
[2023-11-22 10:56] LABS: T4 Free Direct 1.04 ng/dL (0.76-1.46)
== END ==
LOC: OLS.WHLEAS 04:00
PROVIDERS: PCP Family Medicine; Referring Provider Internal Medicine; Visit Provider Internal Medicine
DX: E03.9 Hypothyroidism, unspecified (principal)
CPT/HCPCS: 36415; 84439; 84443; 84480

== ENCOUNTER → 2023-11-29 | Outpatient (REF) | payer MEDICARE, MEDICAID, SELFPAY ==
[2023-11-29 07:56] LABS: T4 Free Direct 1.05 ng/dL (0.76-1.46); Thyroid Stim Hormone (TSH) 4.86 uIU/mL (0.358-3.74)
== END ==
LOC: OLS.WHLEAS 05:00
PROVIDERS: PCP Family Medicine; Visit Provider Internal Medicine
DX: E03.9 Hypothyroidism, unspecified (principal)
CPT/HCPCS: 36415; 84439; 84443

== ENCOUNTER → 2023-12-05 | Outpatient (REF) | payer MEDICARE, MEDICAID, SELFPAY ==
[2023-12-05 07:15] LABS: Absolute Lymphocyte Count 1.18 X10^3/uL (0.83-4.51); Absolute Neutrophil Count 5.2 X10^3/uL (2.0-7.7); Basophil# 0.02 X10^3/uL; Basophil% 0.3 % (0-1); Eosinophil# 0.36 X10^3/uL; Eosinophils% 4.8 % (0-5); Hematocrit 33.1 % (37-47); Hemoglobin 10.5 g/dL (12.0-15.0); Lymphocyte # 1.18 X10^3/ul (0.83-4.51); Lymphocyte % 15.6 % (19-41); Mean Corp Hgb Conc 31.7 g/dL (32-36); Mean Corpuscular Hgb 31.3 pg (27.0-32.0); Mean Corpuscular Volume 98.8 fL (81-99); Mean Platelet Vol. 10.3 fl (6.2-12.0); Monocyte# 0.73 X10^3/uL; Monocyte% 9.7 % (0-10); NRBC Flagged by Analyzer 0 % (0-5); Neutrophil # 5.23 X10^3/uL (2.7-7.7); Neutrophil % 69.3 % (47-70); Platelet Count 331 K/mm3 (150-450); RBC Distribution Width SD 54.8 fl (35.1-43.9); Red Blood Count 3.35 M/mm3 (4.2-5.4); White Blood Count 7.5 K/mm3 (4.4-11.0)
[2023-12-05 08:16] LABS: Anion Gap 7 (5-15); BUN 35 mg/dL (7-18); BUN/Creat Ratio 32.4 RATIO (10-20); Calcium,Total 8.9 mg/dL (8.5-10.1); Chloride 109 mmol/L (98-107); Creatinine, Serum 1.08 mg/dL (0.55-1.02); EST Glomerular Filtration Rate 51 mL/min (>60); Est Glom Filt Rate - Afr Amer 62 mL/min (>60); Glucose 97 mg/dL (74-106); Potassium 3.7 mmol/L (3.5-5.1); Sodium Level 142 mmol/L (136-145)
[2023-12-06 15:01] LABS: Vitamin B12 340 pg/mL (211-911)
== END ==
LOC: OLS.WHLEAS 05:00
PROVIDERS: PCP Family Medicine; Visit Provider Internal Medicine
DX: D51.9 Vitamin B12 deficiency anemia, unspecified (principal); R53.82 Chronic fatigue, unspecified
CPT/HCPCS: 36415; 80048; 82607; 85025

== ENCOUNTER → 2024-01-09 05:00 | Outpatient (REF) | payer MEDICARE, MEDICAID, SELFPAY ==
[2024-01-09 08:39] LABS: Absolute Lymphocyte Count 1.16 X10^3/uL (0.83-4.51); Absolute Neutrophil Count 2.9 X10^3/uL (2.0-7.7); Basophil# 0.03 X10^3/uL; Basophil% 0.6 % (0-1); Eosinophils% 6.2 % (0-5); Hematocrit 36.1 % (37-47); Hemoglobin 11.5 g/dL (12.0-15.0); Lymphocyte # 1.16 X10^3/ul (0.83-4.51); Mean Corp Hgb Conc 31.9 g/dL (32-36); Mean Corpuscular Hgb 31.7 pg (27.0-32.0); Mean Corpuscular Volume 99.4 fL (81-99); Mean Platelet Vol. 10.3 fl (6.2-12.0); Monocyte# 0.49 X10^3/uL; Monocyte% 10.1 % (0-10); NRBC Flagged by Analyzer 0 % (0-5); Neutrophil # 2.85 X10^3/uL (2.7-7.7); Neutrophil % 58.9 % (47-70); Platelet Count 310 K/mm3 (150-450); RBC Distribution Width SD 51.6 fl (35.1-43.9); Red Blood Count 3.63 M/mm3 (4.2-5.4); White Blood Count 4.8 K/mm3 (4.4-11.0)
[2024-01-09 08:55] LABS: Vitamin D,25 Hydroxy 36.8 ng/mL
[2024-01-09 09:04] LABS: AST(SGOT) 13 U/L (15-37); Alanine Aminotransfer ALT/SGPT 16 U/L (13-56); Albumin, Serum 2.9 g/dL (3.2-5.0); Alkaline Phosphatase 75 U/L (45-117); Anion Gap 7 (5-15); BUN 31 mg/dL (7-18); BUN/Creat Ratio 33.2 RATIO (10-20); Bilirubin, Direct 0.12 mg/dL (0.00-0.30); Calcium,Total 8.7 mg/dL (8.5-10.1); Chloride 109 mmol/L (98-107); Creatinine, Serum 0.93 mg/dL (0.55-1.02); EST Glomerular Filtration Rate 60 mL/min (>60); Est Glom Filt Rate - Afr Amer 73 mL/min (>60); Globulin 3.1 g/dL (2.2-4.2); Glucose 95 mg/dL (74-106); Magnesium 2.9 mg/dL (1.6-2.6); Potassium 3.6 mmol/L (3.5-5.1); Sodium Level 143 mmol/L (136-145)
== END ==
LOC: OLS.WHLEAS 05:00
PROVIDERS: PCP Family Medicine; Visit Provider Internal Medicine
DX: E55.9 Vitamin D deficiency, unspecified (principal); R53.82 Chronic fatigue, unspecified
CPT/HCPCS: 36415; 80048; 80076; 82306; 83735; 85025

== ENCOUNTER → 2024-01-10 05:00 | Outpatient (REF) | payer MEDICARE, MEDICAID, SELFPAY ==
[2024-01-10 09:46] LABS: T4 Free Direct 1.07 ng/dL (0.76-1.46)
== END ==
LOC: OLS.WHLEAS 05:00
PROVIDERS: PCP Family Medicine; Visit Provider Internal Medicine
DX: E03.9 Hypothyroidism, unspecified (principal)
CPT/HCPCS: 36415; 84439; 84443

== ENCOUNTER → 2024-02-06 05:00 | Outpatient (REF) | payer MEDICARE, MEDICAID, SELFPAY ==
[2024-02-06 08:38] LABS: Absolute Lymphocyte Count 1.38 X10^3/uL (0.83-4.51); Absolute Neutrophil Count 2.6 X10^3/uL (2.0-7.7); Basophil# 0.03 X10^3/uL; Basophil% 0.6 % (0-1); Eosinophil# 0.34 X10^3/uL; Eosinophils% 6.9 % (0-5); Hematocrit 38.5 % (37-47); Hemoglobin 12.2 g/dL (12.0-15.0); Lymphocyte # 1.38 X10^3/ul (0.83-4.51); Lymphocyte % 27.8 % (19-41); Mean Corp Hgb Conc 31.7 g/dL (32-36); Mean Corpuscular Hgb 31.2 pg (27.0-32.0); Mean Corpuscular Volume 98.5 fL (81-99); Mean Platelet Vol. 10.4 fl (6.2-12.0); Monocyte# 0.55 X10^3/uL; Monocyte% 11.1 % (0-10); NRBC Flagged by Analyzer 0 % (0-5); Neutrophil # 2.64 X10^3/uL (2.7-7.7); Neutrophil % 53.2 % (47-70); Platelet Count 282 K/mm3 (150-450); RBC Distribution Width CV 13.2 % (11.6-14.6); RBC Distribution Width SD 47.5 fl (35.1-43.9); Red Blood Count 3.91 M/mm3 (4.2-5.4)
[2024-02-06 08:43] LABS: Anion Gap 4 (5-15); BUN 25 mg/dL (7-18); BUN/Creat Ratio 24.5 RATIO (10-20); Chloride 110 mmol/L (98-107); Creatinine, Serum 1.02 mg/dL (0.55-1.02); EST Glomerular Filtration Rate 54 mL/min (>60); Est Glom Filt Rate - Afr Amer 66 mL/min (>60); Glucose 104 mg/dL (74-106); Potassium 3.9 mmol/L (3.5-5.1); Sodium Level 141 mmol/L (136-145)
== END ==
LOC: OLS.WHLEAS 05:00
PROVIDERS: PCP Family Medicine; Visit Provider Internal Medicine
DX: R53.82 Chronic fatigue, unspecified (principal)
CPT/HCPCS: 36415; 80048; 85025

== ENCOUNTER → 2024-02-21 | Outpatient (REF) | payer MEDICARE, MEDICAID, SELFPAY ==
[2024-02-21 09:55] LABS: T4 Free Direct 1.15 ng/dL (0.76-1.46)
== END ==
LOC: OLS.WHLEAS 05:00
PROVIDERS: PCP Family Medicine; Visit Provider Internal Medicine
DX: E03.9 Hypothyroidism, unspecified (principal)
CPT/HCPCS: 36415; 84439; 84443

== ENCOUNTER → 2024-03-05 05:00 | Outpatient (REF) | payer MEDICARE, MEDICAID, SELFPAY ==
[2024-03-05 07:49] LABS: Absolute Lymphocyte Count 1.23 X10^3/uL (0.83-4.51); Absolute Neutrophil Count 2.7 X10^3/uL (2.0-7.7); Basophil# 0.02 X10^3/uL; Basophil% 0.4 % (0-1); Eosinophils% 6.4 % (0-5); Hematocrit 38.1 % (37-47); Hemoglobin 12.3 g/dL (12.0-15.0); Lymphocyte # 1.23 X10^3/ul (0.83-4.51); Lymphocyte % 26.1 % (19-41); Mean Corp Hgb Conc 32.3 g/dL (32-36); Mean Corpuscular Hgb 31.6 pg (27.0-32.0); Mean Corpuscular Volume 97.9 fL (81-99); Mean Platelet Vol. 10.6 fl (6.2-12.0); Monocyte# 0.49 X10^3/uL; Monocyte% 10.4 % (0-10); NRBC Flagged by Analyzer 0 % (0-5); Neutrophil # 2.66 X10^3/uL (2.7-7.7); Neutrophil % 56.5 % (47-70); Platelet Count 268 K/mm3 (150-450); RBC Distribution Width CV 13.3 % (11.6-14.6); RBC Distribution Width SD 47.7 fl (35.1-43.9); Red Blood Count 3.89 M/mm3 (4.2-5.4); White Blood Count 4.7 K/mm3 (4.4-11.0)
[2024-03-05 07:57] LABS: Anion Gap 7 (5-15); BUN 32 mg/dL (7-18); BUN/Creat Ratio 31.1 RATIO (10-20); Calcium,Total 8.9 mg/dL (8.5-10.1); Chloride 109 mmol/L (98-107); Creatinine, Serum 1.03 mg/dL (0.55-1.02); EST Glomerular Filtration Rate 54 mL/min (>60); Est Glom Filt Rate - Afr Amer 65 mL/min (>60); Glucose 106 mg/dL (74-106); Potassium 3.9 mmol/L (3.5-5.1); Sodium Level 140 mmol/L (136-145)
== END ==
LOC: OLS.WHLEAS 05:00
PROVIDERS: PCP Family Medicine; Visit Provider Internal Medicine
DX: R53.82 Chronic fatigue, unspecified (principal)
CPT/HCPCS: 36415; 80048; 85025

== ENCOUNTER → 2024-04-03 | Outpatient (REF) | payer MEDICARE, MEDICAID, SELFPAY ==
[2024-04-03 08:41] LABS: T4 Free Direct 1.04 ng/dL (0.76-1.46)
== END ==
LOC: OLS.WHLEAS 05:00
PROVIDERS: PCP Family Medicine; Visit Provider Internal Medicine
DX: E03.9 Hypothyroidism, unspecified (principal)
CPT/HCPCS: 36415; 84439; 84443

== ENCOUNTER → 2024-04-09 | Outpatient (REF) | payer MEDICARE, MEDICAID, SELFPAY ==
[2024-04-09 07:02] LABS: Absolute Lymphocyte Count 1.16 X10^3/uL (0.83-4.51); Absolute Neutrophil Count 2.9 X10^3/uL (2.0-7.7); Basophil# 0.02 X10^3/uL; Basophil% 0.4 % (0-1); Eosinophil# 0.36 X10^3/uL; Eosinophils% 7.1 % (0-5); Hematocrit 33.4 % (37-47); Lymphocyte # 1.16 X10^3/ul (0.83-4.51); Mean Corp Hgb Conc 32.9 g/dL (32-36); Mean Corpuscular Volume 97.1 fL (81-99); Monocyte# 0.55 X10^3/uL; Monocyte% 10.9 % (0-10); NRBC Flagged by Analyzer 0 % (0-5); Neutrophil # 2.94 X10^3/uL (2.7-7.7); Neutrophil % 58.4 % (47-70); Platelet Count 288 K/mm3 (150-450); RBC Distribution Width CV 13.4 % (11.6-14.6); RBC Distribution Width SD 47.9 fl (35.1-43.9); Red Blood Count 3.44 M/mm3 (4.2-5.4)
[2024-04-09 07:19] LABS: AST(SGOT) 11 U/L (15-37); Alanine Aminotransfer ALT/SGPT 14 U/L (13-56); Albumin, Serum 2.9 g/dL (3.2-5.0); Alkaline Phosphatase 84 U/L (45-117); Anion Gap 4 (5-15); BUN 35 mg/dL (7-18); BUN/Creat Ratio 32.1 RATIO (10-20); Bilirubin, Direct 0.09 mg/dL (0.00-0.30); Calcium,Total 8.7 mg/dL (8.5-10.1); Chloride 111 mmol/L (98-107); Cholesterol 241 mg/dL (200); Creatinine, Serum 1.09 mg/dL (0.55-1.02); EST Glomerular Filtration Rate 50 mL/min (>60); Est Glom Filt Rate - Afr Amer 61 mL/min (>60); Globulin 2.8 g/dL (2.2-4.2); Glucose 111 mg/dL (74-106); High Density Lipoprotein 43 mg/dL; Magnesium 2.6 mg/dL (1.6-2.6); Potassium 3.7 mmol/L (3.5-5.1); Protein, Total 5.7 g/dL (6.4-8.2); Sodium Level 142 mmol/L (136-145); Triglycerides 161 mg/dL; Very Low Density Lipoprotein 32 mg/dL (5-40)
[2024-04-09 08:18] LABS: Vitamin D,25 Hydroxy 28.4 ng/mL
== END ==
LOC: OLS.WHLEAS 05:00
PROVIDERS: PCP Family Medicine; Visit Provider Internal Medicine
DX: R53.82 Chronic fatigue, unspecified (principal); E55.9 Vitamin D deficiency, unspecified
CPT/HCPCS: 36415; 80048; 80061; 80076; 82306; 83735; 85025

== ENCOUNTER → 2024-05-07 | Outpatient (REF) | payer MEDICARE, MEDICAID, SELFPAY ==
[2024-05-07 07:52] LABS: Absolute Neutrophil Count 3.2 X10^3/uL (2.0-7.7); Basophil# 0.02 X10^3/uL; Basophil% 0.4 % (0-1); Eosinophil# 0.35 X10^3/uL; Eosinophils% 6.8 % (0-5); Hematocrit 34.6 % (37-47); Hemoglobin 11.5 g/dL (12.0-15.0); Lymphocyte % 21.5 % (19-41); Mean Corp Hgb Conc 33.2 g/dL (32-36); Mean Corpuscular Hgb 32.8 pg (27.0-32.0); Mean Corpuscular Volume 98.6 fL (81-99); Mean Platelet Vol. 10.6 fl (6.2-12.0); Monocyte# 0.47 X10^3/uL; Monocyte% 9.2 % (0-10); NRBC Flagged by Analyzer 0 % (0-5); Neutrophil # 3.16 X10^3/uL (2.7-7.7); Neutrophil % 61.7 % (47-70); Platelet Count 303 K/mm3 (150-450); RBC Distribution Width CV 13.6 % (11.6-14.6); RBC Distribution Width SD 49.6 fl (35.1-43.9); Red Blood Count 3.51 M/mm3 (4.2-5.4); White Blood Count 5.1 K/mm3 (4.4-11.0)
[2024-05-07 08:54] LABS: Anion Gap 4 (5-15); BUN 35 mg/dL (7-18); BUN/Creat Ratio 30.2 RATIO (10-20); Chloride 113 mmol/L (98-107); Creatinine, Serum 1.16 mg/dL (0.55-1.02); EST Glomerular Filtration Rate 47 mL/min (>60); Est Glom Filt Rate - Afr Amer 57 mL/min (>60); Glucose 110 mg/dL (74-106); Potassium 4.1 mmol/L (3.5-5.1); Sodium Level 143 mmol/L (136-145)
== END ==
LOC: OLS.WHLEAS 05:10
PROVIDERS: PCP Family Medicine; Visit Provider Internal Medicine
DX: R53.82 Chronic fatigue, unspecified (principal)
CPT/HCPCS: 36415; 80048; 85025

== ENCOUNTER → 2024-05-15 | Outpatient (REF) | payer MEDICARE, MEDICAID, SELFPAY ==
[2024-05-15 08:45] LABS: T4 Free Direct 1.35 ng/dL (0.76-1.46)
== END ==
LOC: OLS.WHLEAS 05:00
PROVIDERS: PCP Internal Medicine; Visit Provider Internal Medicine
DX: E03.9 Hypothyroidism, unspecified (principal)
CPT/HCPCS: 36415; 84439; 84443

== ENCOUNTER → 2024-06-06 05:00 | Outpatient (REF) | payer MEDICARE, MEDICAID, SELFPAY ==
[2024-06-06 09:24] LABS: Anion Gap 7 (5-15); BUN 29 mg/dL (7-18); BUN/Creat Ratio 26.6 RATIO (10-20); Calcium,Total 9.2 mg/dL (8.5-10.1); Chloride 110 mmol/L (98-107); Creatinine, Serum 1.09 mg/dL (0.55-1.02); EST Glomerular Filtration Rate 50 mL/min (>60); Est Glom Filt Rate - Afr Amer 61 mL/min (>60); Glucose 98 mg/dL (74-106); Potassium 4.1 mmol/L (3.5-5.1); Sodium Level 142 mmol/L (136-145)
[2024-06-06 09:29] LABS: Absolute Lymphocyte Count 1.31 X10^3/uL (0.83-4.51); Absolute Neutrophil Count 3.6 X10^3/uL (2.0-7.7); Basophil# 0.03 X10^3/uL; Basophil% 0.5 % (0-1); Eosinophil# 0.36 X10^3/uL; Eosinophils% 6.2 % (0-5); Hematocrit 39.7 % (37-47); Hemoglobin 12.9 g/dL (12.0-15.0); Lymphocyte # 1.31 X10^3/ul (0.83-4.51); Lymphocyte % 22.4 % (19-41); Mean Corp Hgb Conc 32.5 g/dL (32-36); Mean Corpuscular Hgb 32.2 pg (27.0-32.0); Mean Platelet Vol. 10.4 fl (6.2-12.0); Monocyte# 0.54 X10^3/uL; Monocyte% 9.2 % (0-10); NRBC Flagged by Analyzer 0 % (0-5); Neutrophil # 3.58 X10^3/uL (2.7-7.7); Neutrophil % 61.4 % (47-70); Platelet Count 328 K/mm3 (150-450); RBC Distribution Width CV 13.2 % (11.6-14.6); Red Blood Count 4.01 M/mm3 (4.2-5.4); White Blood Count 5.8 K/mm3 (4.4-11.0)
== END ==
LOC: OLS.WHLEAS 05:00
PROVIDERS: PCP Internal Medicine; Visit Provider Internal Medicine
DX: I49.9 Cardiac arrhythmia, unspecified (principal); I50.22 Chronic systolic (congestive) heart failure; D64.9 Anemia, unspecified; E78.5 Hyperlipidemia, unspecified; E03.9 Hypothyroidism, unspecified; D51.9 Vitamin B12 deficiency anemia, unspecified
CPT/HCPCS: 36415; 80048; 85025

== ENCOUNTER → 2024-06-26 05:00 | Outpatient (REF) | payer MEDICARE, MEDICAID, SELFPAY ==
[2024-06-26 08:39] LABS: T4 Free Direct 1.34 ng/dL (0.76-1.46)
== END ==
LOC: OLS.WHLEAS 05:00
PROVIDERS: PCP Internal Medicine; Visit Provider Internal Medicine
DX: E03.9 Hypothyroidism, unspecified (principal)
CPT/HCPCS: 36415; 84439; 84443

== ENCOUNTER → 2024-08-13 | Outpatient (REF) | payer MEDICARE, MEDICAID, SELFPAY ==
[2024-08-13 12:23] LABS: Color, Urine Yellow (Yellow); Glucose, Dipstick 1000 mg/dl (Normal); Ketone-Dipstick Negative (Negative); Leukocyte Esterase-Dipstick Negative /ul (Negative); Nitrite-Dipstick Negative (Negative); Occult Blood-Urine Negative /ul (Negative); Protein-Dipstick 15 mg/dl (Negative); Urine Bilirubin Dipstick Negative (Negative); Urine Clarity Sl. Cloudy (Clear); Urine Urobilinogen Normal (Normal)
== END ==
LOC: OLS.WHLEAS 06:30
PROVIDERS: PCP Internal Medicine; Referring Provider Internal Medicine; Visit Provider Internal Medicine
DX: N19 Unspecified kidney failure (principal); I50.22 Chronic systolic (congestive) heart failure; E03.9 Hypothyroidism, unspecified; D51.9 Vitamin B12 deficiency anemia, unspecified; R39.9 Unspecified symptoms and signs involving the genitourinary system
CPT/HCPCS: 81002; 87086; 87088

== ENCOUNTER → 2024-08-13 | Outpatient (REF) | payer MEDICARE, MEDICAID, SELFPAY ==
[2024-08-13 07:48] LABS: Absolute Lymphocyte Count 1.27 X10^3/uL (0.83-4.51); Absolute Neutrophil Count 2.4 X10^3/uL (2.0-7.7); Basophil# 0.02 X10^3/uL; Basophil% 0.5 % (0-1); Eosinophil# 0.34 X10^3/uL; Eosinophils% 7.8 % (0-5); Hematocrit 35.9 % (37-47); Hemoglobin 11.8 g/dL (12.0-15.0); Lymphocyte # 1.27 X10^3/ul (0.83-4.51); Lymphocyte % 29.1 % (19-41); Mean Corp Hgb Conc 32.9 g/dL (32-36); Mean Corpuscular Hgb 31.6 pg (27.0-32.0); Mean Corpuscular Volume 96.2 fL (81-99); Mean Platelet Vol. 10.2 fl (6.2-12.0); Monocyte# 0.37 X10^3/uL; Monocyte% 8.5 % (0-10); NRBC Flagged by Analyzer 0 % (0-5); Neutrophil # 2.36 X10^3/uL (2.7-7.7); Neutrophil % 53.9 % (47-70); Platelet Count 292 K/mm3 (150-450); RBC Distribution Width CV 12.8 % (11.6-14.6); RBC Distribution Width SD 45.1 fl (35.1-43.9); Red Blood Count 3.73 M/mm3 (4.2-5.4); White Blood Count 4.4 K/mm3 (4.4-11.0)
[2024-08-13 08:10] LABS: ALB/GLOB Ratio 1.4 RATIO (0.9-2.4); AST(SGOT) 16 U/L (<=31); Alanine Aminotransfer ALT/SGPT 8 U/L (<=34); Albumin, Serum 3.3 g/dL (3.4-4.8); Alkaline Phosphatase 64 U/L (35-104); Anion Gap 12 (5-15); BUN 28 mg/dL (4-19); BUN/Creat Ratio 27.5 RATIO (10-20); Calcium,Total 8.7 mg/dL (7.6-11.0); Carbon Dioxide 23.4 mmol/L (21.0-32.0); Chloride 117 mmol/L (98-108); Creatinine, Serum 1.03 mg/dL (0.70-1.20); EST Glomerular Filtration Rate 52 (>60); Globulin 2.3 g/dL (2.2-4.2); Glucose 88 mg/dL (70-99); Potassium 3.8 mmol/L (3.3-5.1); Protein, Total 5.6 g/dL (5.9-8.4); Sodium Level 153 mmol/L (133-145); Total Bilirubin 0.41 mg/dL (0.00-1.30)
== END ==
LOC: OLS.WHLEAS 05:00
PROVIDERS: PCP Internal Medicine; Visit Provider Internal Medicine
DX: N19 Unspecified kidney failure (principal); I50.22 Chronic systolic (congestive) heart failure; I49.9 Cardiac arrhythmia, unspecified; E78.5 Hyperlipidemia, unspecified; E03.9 Hypothyroidism, unspecified; D64.9 Anemia, unspecified
CPT/HCPCS: 36415; 80053; 85025

== ENCOUNTER → 2024-10-08 | Outpatient (REF) | payer MEDICARE, MEDICAID, SELFPAY ==
[2024-10-08 09:39] LABS: Magnesium 2.2 mg/dL (1.5-2.2)
== END ==
LOC: OLS.WHLEAS 05:00
PROVIDERS: PCP Internal Medicine; Visit Provider Internal Medicine
DX: E03.9 Hypothyroidism, unspecified (principal)
CPT/HCPCS: 36415; 83735; 84443

== ENCOUNTER → 2024-11-05 05:00 | Outpatient (REF) | payer MEDICARE, MEDICAID, SELFPAY ==
--- OUTSIDE RECORDS SUMMARY | 2024-11-05 04:11 | XMS RPT_ITS | CCD ---
Author Organization [facility] Care Team Providers Care Healthcare Financial Analyst Name Role Phone Dr. Grant Whitley Emergency Provider [phone] Viet Lovett Primary Care Provider Dr. Mhedi Crespo Admit Provider Unavailabl e Dr. Mehdi Crespo Other Provider Unavailabl e Dr. Anson Waite Attending Provider Dr. Anson Waite Other Provider Dr. Anson Waite Referring Provider Dr. Amol Yoder Attending Provider Dr. Stas Wilson Attending Provider Dr. Amol Yoder Other Provider Dr. Joon Yuen Attending Provider Dr. Joon Yuen Other Provider Dr. Tammi Frost Attending Provider Dr. Tammi Frost Other Provider Dr. Viet Lovett MD Primary Care Provider Sharif Ramos MD Attending Provider UnavailSharif Dawn MD Primary Care Provider Mohiniva Dr. Sharif Garza MD Attending Provider Sharif Ramos MD Referring Provider UnavailDr. Andrea Ferris MD Attending Provider Lashae Galeano Attending Provider Dr. Sharif Ramos MD Primary Care Provider Marine ZAZUETA, Dr. Mendez Referring Provider Jamar Isabel Attending Provider Rachel ZAZUETA, Sharif Primary Care Provider Mohiniva jamie Hawthorne MD, Dr. Mendez Attending Provider Rachel ZAZUETA, Dr. Olguin Attending Provider Rachel ZAZUETA, Sharif Attending Provider Unavaila bailee Ramos MD, Sharif Referring Provider Unavaila bailee Garner ACCESS DEVELOPER-C, Lashae Attending Provider Oleghe OLS, Efewongbe Attending Unavailabl e Lyman, Viet Primary Care Unavailable Oleghe OLS, Efewongbe Attending Unavailabl e Lyman, Viet Primary Care Unavailable Oleghe OLS, Efewongbe Attending Unavailabl e Lyman, Viet Primary Care Unavailable [place] ACCESS DEVELOPER, Lashae Attending Unavailable Rachell, Viet Primary Care Unavailable Oleghe OLS, Efewongbe Attending Unavailabl e Lyman, Viet Primary Care Unavailable Oleghe OLS, Efewongbe Attending Unavailabl e Oleghe OLS, Efewongbe Primary Care Unavailabl e Oleghe OLS, Efewongbe Attending Unavailabl e Rachell, Viet Primary Care Unavailable Oleghe OLS, Efewongbe Attending Unavailabl e Rachell, Viet Primary Care Unavailable [place] ACCESS DEVELOPER, Lashae Attending Unavailable Oleghe OLS, Efewongbe Primary Care Unavailabl e Oleghe, Efewongbe Primary Care Unavailable [place] ACCESS DEVELOPER, Lashae Attending Unavailable Oleghe OLS, Efewongbe Attending Unavailabl e Lyman, Viet Primary Care Unavailable Oleghe OLS, Efewongbe Attending Unavailabl e Oleghe, Efewongbe Primary Care Unavailable Oleghe OLS, Efewongbe Attending Unavailabl e Rachell, Viet Primary Care Unavailable Oleghe OLS, Efewongbe Attending Unavailabl e Oleghe, Efewongbe Primary Care Unavailable Oleghe OLS, Efewongbe Attending Unavailabl e Rachell, Viet Primary Care Unavailable Oleghe OLS, Efewongbe Attending Unavailabl e Oleghe OLS, Efewongbe Referring Unavailabl e Rachell, Viet Primary Care Unavailable Oleghe OLS, Efewongbe Attending Unavailabl e Oleghe OLS, Efewongbe Referring Unavailabl e [facility] Primary Care Unavailable Oleghe OLS, Efewongbe Primary Care Unavailabl e Jamar Isabel Attending Unavailable Oleghe, Efewongbe Attending Unavailable [facility] Primary Care Unavailable [place] ACCESS DEVELOPERLashae Attending Unavailable [facility] Primary Care Unavailable Oleghe, Efewongbe Attending Unavailable [facility] Primary Care Unavailable Oleghe OLS, Efewongbe Attending Unavailabl e Oleghe OLS, Efewongbe Primary Care Unavailabl e Oleghe OLS, Efewongbe Attending Unavailabl e Oleghe OLS, Efewongbe Primary Care Unavailabl e Oleghe OLS, Efewongbe Attending Unavailabl e Oleghe OLS, Efewongbe Referring Unavailabl e Oleghe, Efewongbe Primary Care Unavailable Oleghe OLS, Efewongbe Attending Unavailabl e [facility] Primary Care Unavailable Oleghe OLS, Efewongbe Primary Care Unavailabl e Lashae Garner NP Attending Unavailable Oleghe, Efewongbe Primary Care Unavailable Jamar Isabel Attending Unavailable Oleghe OLS, Efewongbe Primary Care Unavailabl e Oleghe, Efewongbe Attending Unavailable Oleghe OLS, Efewongbe Primary Care Unavailabl e [place] ACCESS DEVELOPER, Lashae Attending Unavailable Marine, [place] Attending Unavailable Oleghe OLS, Efewongbe Primary Care Unavailabl e Marine, Andrea Referring Unavailable Marine, [place] Attending Unavailable Oleghe, Efewongbe Primary Care Unavailable Oleghe, Efewongbe Attending Unavailable Oleghe OLS, Efewongbe Primary Care Unavailabl e Oleghe, Efewongbe Primary Care Unavailable Oleghe, Efewongbe Attending Unavailable Marine, [place] Referring Unavailable Marine, [place] Attending Unavailable Oleghe, Efewongbe Primary Care Unavailable Oleghe OLS, Efewongbe Referring Unavailabl e Marine, Andrea Attending Unavailable Oleghe OLS, Efewongbe Primary Care Unavailabl e Oleghe OLS, Efewongbe Attending Unavailabl e [facility] Primary Care Unavailable Allergies Allergy Classification Reported Allergen(s) Allergy Type Date of Onset Reaction(s) Facility (5 sources) Mgbyzax-Bha-Lln Reductase Inhibitor Propensity to adverse reactions 4 muscle aches [facility] (1 source) Cambmjf-Rqy-Hsq Reductase Inhibitor Drug allergy (disorder) 5 [facility] Repository Medications Current Medications Medication Drug Class(es) Dates Sig (Normalized) Sig (Original) amiodarone hydrochloride 100 mg oral tablet (4 sources) Antiarrhythmic Start: 09-29-2023 take 1 tablet by mouth once daily Amiodarone 100 mg tablet Active 100 mg PO DAILY September 29, 2023 12:00am aspirin 81 mg delayed release oral tablet (4 sources) Platelet Aggregation Inhibitor, Nonsteroidal Anti-inflammatory Drug Start: 09-29-2023 take 1 tablet by mouth once daily Aspirin 81 mg tablet,delayed release (DR/EC) Active 81 mg PO DAILY September 29, 2023 12:00am calcium carbonate 500 mg chewable tablet (4 sources) Start: 10-08-2023 take 1 tablet by mouth three times daily at mealtime Calcium Carbonate 200 mg calcium (500 mg) Tablet,Chewable Active 500 mg PO 3 TIMES DAILY WITH MEALS 0 October 08, 2023 12:00am cholecalciferol 0.025 mg oral tablet (4 sources) Vitamin D Start: 10-08-2023 take 1 tablet by mouth once daily Cholecalciferol (Vitamin D3) 25 mcg (1,000 unit) Tablet Active 25 ug PO DAILY 0 October 08, 2023 12:00am dapagliflozin 10 mg oral tablet (7 sources) Sodium-Glucose Cotransporter 2 Inhibitor Start: 09-29-2023 End: 06-18-2024 take 1 tablet by mouth once daily in the morning Dapagliflozin Propanediol (Farxiga) 10 mg tablet Active 10 mg PO EVERY MORNING June 18, 2024 1:00am docusate sodium 50 mg / sennosides, nursing home 8.6 mg oral tablet (4 sources) Start: 10-08-2023 Sennosides-Docusate Sodium (Stool Softener-Stimulant Laxat) 8.6-50 mg Tablet Active 2 {tbl} PO TWICE A DAY 0 October 08, 2023 12:00am Food Supplemt, Lactose-Reduced (Ensure Plus High Protein) 0.08 gram-1.5 kcal/mL Liquid (4 sources) Start: 10-08-2023 Food Supplemt, Lactose-Reduced (Ensure Plus High Protein) 0.08 gram-1.5 kcal/mL Liquid Active 120 mL PO 3 TIMES DAILY WITH MEALS 0 October 08, 2023 12:00am Start: 10-08-2023 Food Supplemt, Lactose-Reduced (Ensure Plus High Protein) 0.08 gram-1.5 kcal/mL Liquid Active 120 ML PO 3 TIMES DAILY WITH MEALS 0 October 08, 2023 12:00am furosemide 40 mg oral tablet (4 sources) Loop Diuretic Start: 09-29-2023 take 1 tablet by mouth once daily Furosemide 40 mg tablet Active 40 mg PO DAILY September 29, 2023 12:00am levothyroxine sodium 0.025 mg oral tablet (3 sources) l-Thyroxine Start: 06-18-2024 Levothyroxine 25 mcg tablet Active ug PO June 18, 2024 1:00am magnesium sulfate 100 mg oral capsule (4 sources) Start: 09-29-2023 take 4 capsules by mouth once daily Magnesium Sulfate 100 mg capsule Active 400 mg PO DAILY September 29, 2023 12:00am Start: 09-29-2023 take 400 mg by mouth once kate y Magnesium Sulfate Active 400 MG PO DAILY September 29, 2023 12:00am Menthol / Zinc Oxide (4 sources) Start: 10-08-2023 Menthol-Zinc O xide (Calmoseptine) 0.44-20.6 % Ointment Active 1 NMA TOPICAL TWICE A DAY 0 October 08, 2023 12:00am Please contact the information source for Protocol details. Start: 10-08-2023 Menthol-Zinc O xide (Calmoseptine) 0.44-20.6 % Ointment Active 1 APPLIC TOPICAL TWICE A DAY 0 October 08, 2023 12:00am 24 hr metoprolol succinate 25 mg extended release oral tablet (7 sources) beta-Adrenergic John Start: 06-18-2024 take 1 tablet by mouth once daily Metoprolol Succinate (Toprol Xl) 25 mg tablet extended release 24 hr Active 25 mg PO daily June 18, 2024 1:00am Start: 09-29-2023 End: 06-18-2024 take 2 tablets by mouth once daily Metoprolol Succinate 25 mg tablet extended release 24 hr Discontinued 12.5 mg PO DAILY September 29, 2023 12:00am June 18, 2024 2:16pm Start: 09-29-2023 take 12.5 mg by mout h once daily Metoprolol Succinate Active 12.5 MG PO DAILY September 29, 2023 12:00am sacubitril 24 mg / valsartan 26 mg oral tablet (4 sources) Angiotensin 2 Receptor John Start: 09-29-2023 Sacubitril-Valsartan (Entresto) 24-26 mg tablet Active 1 {tbl} PO TWICE A DAY September 29, 2023 12:00am Completed/Discontinued Medications Medication Drug Class(es) Dates Sig (Normalized) Sig (Original) acetaminophen 500 mg oral tablet (10 sources) Start: 10-08-2023 End: 10-26-2023 take 2 tablets by mouth every eight hours as needed Acetaminophen 500 mg tablet Discontinued 1000 mg PO EVERY 8 HOURS as needed October 26, 2023 9:24am October 26, 2023 9:29am Start: 10-08-2023 take 1000 mg by mout h every eight hours Acetaminophen Active 1000 MG PO EVERY 8 HOURS 0 October 08, 2023 12:00am apixaban 5 mg oral tablet (4 sources) Factor Xa Inhibitor Start: 10-08-2023 End: 10-23-2023 take 2.5 mg by mouth twice daily Apixaban (Eliquis) 5 mg Tablet Discontinued 2.5 mg PO TWICE A DAY October 08, 2023 12:00am October 22, 2023 12:00am October 23, 2023 12:05am X 3 weeks ciprofloxacin 250 mg oral tablet (3 sources) Quinolone Antimicrobial Start: 10-26-2023 End: 06-18-2024 take 1 tablet by mouth twice daily Ciprofloxacin Hcl (Cipro) 250 mg tablet Discontinued 250 mg PO TWICE A DAY October 26, 2023 12:00am June 18, 2024 2:17pm oxyCODONE hydrochloride 5 mg oral tablet (4 sources) Opioid Agonist Start: 10-08-2023 End: 06-18-2024 take 2.5 mg by mouth every six hours as needed for pain Oxycodone 5 mg Tablet Discontinued 2.5 mg PO EVERY 6 HOURS as needed for pain 4 October 08, 2023 June 18, 2024 2:17pm Start: 10-08-2023 take 2.5 mg by mouth every six hours Oxycodone Active 2.5 MG PO EVERY 6 HOURS 4 2 October 6th, 2024 Problems Active Problems Problem Classification Problem Date Documented Da te Episodic/Chronic Acute and unspecified renal failure (1 source) Unspecified kidney failure; Translations: [Unspecified kidney failure] Onset: 09-04-2024 Chronic Acute cerebrovascular disease (3 sources) Cerebral hemorrhage; Translations: [Nontraumatic intracerebral hemorrhage, unspecified] 06-09-2024 Chronic Blindness and vision defects (3 sources) Legal blindness; Translations: [Legal blindness, as defined in [place]] 06-09-2024 Chronic Cardiac dysrhythmias (1 source) Cardiac arrhythmia, unspecified; Translations: [Cardiac arrhythmia, unspecified] Onset: 09-04-2024 Chronic Chronic kidney disease (3 sources) Chronic kidney disease stage 3B ; Translations: [Stage 3b chronic kidney disease] 06-09-2024 Chronic Conduction disorders (19 sources) 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 MANAGER ENGINE-O ICM; NOT MRI compatible Congestive heart failure; nonhypertensive (10 sources) Congestive heart failure; Translations: [Heart failure, unspecified] Onset: 08-05-2024 06-09-2024 Chronic Coronary atherosclerosis and other heart disease (13 sources) Coronary arteriosclerosis; Translations: [Atherosclerotic heart disease of [place] coronary artery without angina pectoris] Onset: 07-08-2024 06-09-2024 Chronic Deficiency and other anemia (3 sources) Chronic anemia; Translations: [Anemia, unspecified] 06-09-2024 Episodic Deficiency and other anemia (1 source) Vitamin B12 deficiency anemia, unspecified; Translations: [Vitamin B12 deficiency anemia, unspecified] Onset: 09-04-2024 Episodic Deficiency and other anemia (1 source) Anemia, unspecified; Translations: [Anemia, unspecified] Onset: 09-04-2024 Episodic Disorders of lipid metabolism (6 sources) Hyperlipidemia; Translations: [Hyperlipidemia, unspecified] Onset: 09-04-2024 06-09-2024 Chronic E Codes: Fall (7 sources) Falling injury; Translations: [Unspecified fall, initial encounter] 09-29-2023 Episodic Essential hypertension (6 sources) Essential hypertension; Translations: [Essential (primary) hypertension] Onset: 07-08-2024 06-09-2024 Chronic Genitourinary symptoms and ill-defined conditions (3 sources) Incontinence; Translations: [Unspecified urinary incontinence] 06-09-2024 Chronic Malaise and fatigue (2 sources) Chronic fatigue, unspecified; Translations: [Chronic fatigue, unspecified] Onset: 01-28-2024 Chronic Malaise and fatigue (5 sources) Asthenia; Translations: [Other malaise] 10-04-2023 Episodic Open wounds of extremities (7 sources) Open wound of left elbow region; Translations: [Laceration without foreign body of left elbow, initial encounter] 09-29-2023 Episodic Other aftercare (3 sources) Follow-up status; Translations: [Encounter for other orthopedic aftercare] 06-09-2024 Episodic Other circulatory disease (5 sources) H/O: heart failure; Translations: [Personal history of other diseases of the circulatory system] 09-29-2023 Episodic Other circulatory disease (5 sources) History of cerebral hemorrhage; Translations: [Personal history of other diseases of the circulatory system] 09-29-2023 Episodic Other circulatory disease (2 sources) Personal history of other diseases of the circulatory system; Translations: [Personal history of other diseases of circulatory system] 10-10-2023 Episodic Other connective tissue disease (4 sources) History of repair of hip joint; Translations: [Presence of unspecified artificial hip joint] 10-01-2023 Chronic Other connective tissue disease (1 source) Presence of unspecified artificial hip joint; Translations: [Hip joint replacement] 10-10-2023 Chronic Other endocrine disorders (3 sources) Secondary hyperaldosteronism; 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 Other nervous system disorders (3 sources) Impairment of balance; Translations: [Other abnormalities of gait and mobility] 06-09-2024 Episodic Superficial injury; contusion (7 sources) Contusion of pelvic region; Translations: [Contusion of lower back and pelvis, initial encounter] 09-29-2023 Episodic Thyroid disorders (2 sources) Hypothyroidism, unspecified; Translations: [Hypothyroidism, unspecified] Onset: 07-09-2024 Chronic Past or Other Problems Problem Classification Problem Date Documented Da te Episodic/Chronic Coronary atherosclerosis and other heart disease (6 sources) Stented coronary artery; Translations: [Presence of coronary angioplasty implant and graft] Onset: 06-07-2022 06-18-2024 Episodic Comment on above: PCI x3 LAD x2 left c ircumflex Fracture of neck of femur (hip) (11 sources) Closed fracture of neck of femur; Translations: [Fracture of unspecified part of neck of left femur, initial encounter for closed fracture] Onset: 07-01-2024 09-29-2023 Episodic Other aftercare (2 sources) Encounter for other orthopedic aftercare; Translations: [Encounter for other orthopedic aftercare] Onset: 07-01-2024 Episodic Other connective tissue disease (2 sources) Muscle wasting and atrophy, not elsewhere classified, right lower leg; Translations: [Muscle wasting and atrophy, not elsewhere classified, right lower leg] Onset: 07-01-2024 Episodic Urinary tract infections (4 sources) Urinary tract infectious disease; Translations: [Urinary tract infection, site not specified] Onset: 12-12-2023 06-09-2024 Episodic Results Test Name Value Interpretation Reference Range Facility Magnesium measurement (mass/ volume)Ordered By: Sharif Ramos on 10-08-2024 Magnesium (Unsp spec) [Mass/Vol] 2.2 mg/dL 1.5-2.2 [facility] TSH DL <= 0.005 mIU/L QnOrde red By: Sharif Ramos on 10-08-2024 TSH Qn 1.270 uIU/mL 0.300-4.200 [facility] Absolute lymphocyte countOrd ered By: Sharif Ramos on 08-13-2024 Lymphocytes Auto (Unsp spec) [#/Vol] 1.27 10*3/uL 0.83-4.51 [facility] Absolute neutrophil countOrd ered By: Sharif Ramos on 08-13-2024 Neutrophils (Bld) [#/Vol] 2.4 10*3/uL 2.0-7.7 [facility] Anion gap in Serum or Plasma Ordered By: Sharif Ramos on 08-13-2024 Anion gap [Moles/Vol] 12 mmol/L 5-15 [facility] Automated lymphocyte count a s percentage of total leukocytesOrdered By: Sharif Ramos on 08-13-2024 Lymphocytes/100 WBC Auto (Unsp spec) 29.1 % 19-41 [facility] BUN/creatinine ratioOrdered By: hSarif Ramos on 08-13-2024 Urea nitrogen/Creatinine [Mass ratio] 27.5 mg/mg High 10-20 [facility] Basophil percentageOrdered B y: Sharif Ramos on 08-13-2024 Basophils/100 WBC (Bld) 0.5 % 0-1 [facility] Bilirubin Test strip Ql (U)O rdered By: Cristinarichie Randallroxannagregg on 08-13-2024 Bilirubin Ql (U) Negative Negative [facility] Bilirubin, totalOrdered By: Sharif Randallroxannagregg on 08-13-2024 Bilirubin [Mass/Vol] 0.41 mg/dL 0.00-1.30 [facility] Carbon dioxide, total [Moles /volume] in Central venous bloodOrdered By: Snowshahram Randallroxannagregg on 08-13-2024 CO2 [Moles/Vol] 23.4 mmol/L 21.0-32.0 [facility] Chloride assayOrdered By: Cristina richie Randallroxannagregg on 08-13-2024 Chloride [Moles/Vol] 117 mmol/L High 98-108 [facility] Eosinophil percentageOrdered By: Sharif Ramos on 08-13-2024 Eosinophils/100 WBC (Bld) 7.8 % High 0-5 [facility] Erythrocyte distribution wid th (RBC) [Ratio]Ordered By: Sharif Pagangregg on 08-13-2024 Erythrocyte distribution width (RBC) [Entitic vol] 45.1 fL High 35.1-43.9 [facility] Erythrocyte distribution wid th ratioOrdered By: Cristinarichie Randallroxannagregg on 08-13-2024 Erythrocyte distribution width (RBC) [Ratio] 12.8 % 11.6-14.6 [facility] Erythrocyte distribution wid th standard deviationOrdered By: Sharif Pagangregg on 08-13-2024 Erythrocyte distribution width (RBC) [Ratio] 45.1 fl High 35.1-43.9 [facility] GFR/1.73 sq M.predicted lisbet g non-blacks MDRD (S/P/Bld) [Vol rate/Area]Ordered By: Sharif Ramos on 08-13-2024 Estimated GFR (MDRD) Non-Af Amer 52 Low >60 [facility] Comment on above: mL/min/1.73m2 CKD-EP I Creatinine Equation (2020) Glomerular filtration rate ( GFR) estimation/1.73 sq m using serum, plasma, or whole bOrdered By: Sharif Ramos on 08-13-2024 GFR/1.73 sq M.predicted among non-blacks MDRD (S/P/Bld) [Vol rate/Area] 52 mL/min/{1.73_m2} Low >60 [facility] Comment on above: mL/min/1.73m2 CKD-EP I Creatinine Equation (2020) Glucose Ql (U)Ordered By: Cristina Ramos on 08-13-2024 Glucose (U) [Mass/Vol] 1000 mg/dL High Normal [facility] Hematocrit Auto (Bld) [Volum e fraction]Ordered By: Sharif Ramos on 08-13-2024 Hematocrit (Bld) [Volume fraction] 35.9 % Low 37-47 [facility] Hemoglobin measurementOrdere d By: Sharif Ramos on 08-13-2024 Hemoglobin (Bld) [Mass/Vol] 11.8 g/dL Low 12.0-15.0 [facility] Immature granulocytes/100 WB C Auto (Bld)Ordered By: Sharif Ramos on 08-13-2024 Immature granulocytes/100 WBC (Bld) 0.200 % 0.0-0.9 [facility] Comment on above: IG% - Immature Granu locytes (promyelocytes, myelocytes and metamyelocytes) > 1% indicates that a LEFT SHIFT is Present. Ketones Test strip Ql (U)Ord ered By: Sharif Ramos on 08-13-2024 Ketones Ql (U) Negative Negative [facility] Laboratory - Chemistry and C hemistry - challengeOrdered By: Sharif Ramos on 08-13-2024 AST [Catalytic activity/Vol] 16 U/L <32 [facility] Lymphocytes Auto (Unsp spec) [#/Vol]Ordered By: Sharif Ramos on 08-13-2024 Lymphocytes (Bld) [#/Vol] 1.27 10*3/uL 0.83-4.51 [facility] Lymphocytes/100 WBC Auto (Un sp spec)Ordered By: Sharif Ramos on 08-13-2024 Lymphocytes/100 WBC (Bld) 29.1 % 19-41 [facility] MCV (mean corpuscular volume ) determinationOrdered By: Sharif Ramos on 08-13-2024 MCV (RBC) [Entitic vol] 96.2 fL 81-99 [facility] Mean corpuscular hemoglobin (MCH) determinationOrdered By: Sharif Ramos on 08-13-2024 MCH (RBC) [Entitic mass] 31.6 pg 27.0-32.0 [facility] Mean corpuscular hemoglobin concentration (MCHC) determinationOrdered By: Sharif Ramos on 08-13-2024 MCHC (RBC) [Mass/Vol] 32.9 g/dL 32-36 [facility] Mean platelet volume determi nationOrdered By: Sharif Ramos on 08-13-2024 Platelet mean volume (Bld) [Entitic vol] 10.2 fL 6.2-12.0 [facility] Monocyte percentageOrdered B y: Sharif Ramos on 08-13-2024 Monocytes/100 WBC (Bld) 8.5 % 0-10 [facility] Neutrophil percentageOrdered By: Sharif Ramos on 08-13-2024 Neutrophils/100 WBC (Bld) 53.9 % 47-70 [facility] Nitrite Test strip Ql (U)Ord ered By: Sharif Ramos on 08-13-2024 Nitrite Ql (U) Negative Negative [facility] Nucleated red blood cell per centageOrdered By: Sharif Ramos on 08-13-2024 Nucleated RBC/100 WBC (Bld) [Ratio] 0 % 0-5 [facility] Platelet countOrdered By: Cristina Ramos on 08-13-2024 Platelets (Bld) [#/Vol] 292 10*3/uL 150-450 [facility] Potassium (Unsp spec) [Mass/ Vol]Ordered By: Sharif Ramos on 08-13-2024 Potassium [Moles/Vol] 3.8 mmol/L 3.3-5.1 [facility] Potassium measurement (mass/ volume)Ordered By: Sharif Ramos on 08-13-2024 Potassium (Unsp spec) [Mass/Vol] 3.8 mmol/L 3.3-5.1 [facility] Protein Test strip Ql (U)Ord ered By: Sharif Ramos on 08-13-2024 Protein Ql (U) 15 mg/dl High Negative [facility] RBC Auto (Bld) [#/Vol]Ordere d By: Sharif Ramos on 08-13-2024 RBC (Bld) [#/Vol] 3.73 10*6/uL Low 4.2-5.4 [facility] Serum creatinine measurement (mass/volume)Ordered By: Sharif Ramos on 08-13-2024 Creatinine [Mass/Vol] 1.03 mg/dL 0.70-1.20 [facility] Serum globulin measurementOr dered By: Sharif Ramos on 08-13-2024 Globulin (S) [Mass/Vol] 2.3 g/dL 2.2-4.2 [facility] Serum glucose measurement (m ass/volume)Ordered By: Sharif Ramos on 08-13-2024 Glucose [Mass/Vol] 88 mg/dL 70-99 [facility] Serum or plasma alanine contreras otransferase (ALT) measurementOrdered By: Sharif Ramos on 08-13-2024 ALT [Catalytic activity/Vol] 8 U/L <35 [facility] Serum or plasma albumin clarke urement (mass/volume)Ordered By: Sharif Ramos on 08-13-2024 Albumin [Mass/Vol] 3.3 g/dL Low 3.4-4.8 [facility] Serum or plasma albumin/glob ulin mass ratioOrdered By: Sharif Ramos on 08-13-2024 Albumin/Globulin [Mass ratio] 1.4 {ratio} 0.9-2.4 [facility] Serum or plasma alkaline timi sphatase measurementOrdered By: Sharif Ramos on 08-13-2024 ALP [Catalytic activity/Vol] 64 U/L 35-104 [facility] Serum or plasma calcium clarke urement (mass/volume)Ordered By: Sharif Ramos on 08-13-2024 Calcium [Mass/Vol] 8.7 mg/dL 7.6-11.0 [facility] Serum or plasma urea nitroge n measurement (mass/volume)Ordered By: Sharif Ramos on 08-13-2024 Urea nitrogen [Mass/Vol] 28 mg/dL High 4-19 [facility] Sodium levelOrdered By: Snow Ramos on 08-13-2024 Sodium [Moles/Vol] 153 mmol/L High 133-145 [facility] Total proteinOrdered By: Milton Ramos on 08-13-2024 Protein [Mass/Vol] 5.6 g/dL Low 5.9-8.4 [facility] Urine blood detectionOrdered By: Sharif Ramos on 08-13-2024 Urine Occult Blood Negative Negative [facility] Urine clarityOrdered By: Milton Ramos on 08-13-2024 Clarity (U) Sl. Cloudy Clear [facility] Urine color determinationOrd ered By: Sharif Ramos on 08-13-2024 Color (U) Yellow Yellow [facility] Urine cultureOrdered By: Milton Ramos on 08-13-2024 Bacteria identified Cx Nom (U) Positive Abnormal [facility] Urine glucose detectionOrder ed By: Sharif Ramos on 08-13-2024 Glucose Ql (U) 1000 mg/dl High Normal [facility] Urine leukocyte esterase det ection by dipstickOrdered By: Sharif Ramos on 08-13-2024 Leukocyte esterase Test strip Ql (U) Negative Negative [facility] Urine pHOrdered By: Mary Ramos on 08-13-2024 pH (U) 6.0 [pH] 5.0 - 8.0 [facility] Urine specific gravity measu rementOrdered By: Sharif Ramos on 08-13-2024 Specific gravity (U) [Rel density] 1.020 1.002-1.030 [facility] Urine urobilinogen measureme ntOrdered By: Sharif Ramos on 08-13-2024 Urobilinogen Ql (U) Normal mg/dl Normal [facility] Urobilinogen Ql (U)Ordered B y: Sharif Pereiraroxannagregg on 08-13-2024 Urine Urobilinogen Normal mg/dl Normal [facility] White blood cell (WBC) count Ordered By: Sharif Ramos on 08-13-2024 WBC (Bld) [#/Vol] 4.4 10*3/uL 4.4-11.0 [facility] Pacemaker Checkon 07-09-2024 Pacemaker Check [facility] [address] [place] [address] Pacemaker Check Date of Service: 07/09/24 1411 MR#: [id number] Acct: [id number] Name: SHERRIE LOZANO Rep #: [id number] : 1935 From: Abby Butts Age/Sex: 89/F Location: [facility] [place] Status: Signed Billing Codes ICD Device Billin ICD Dev Prog Eval, Multi Assessment and Plan Assessment and Plan (1) Ischemic cardiomyopathy: Status: Acute (2) ICD (implantable cardioverter-defibrill ator) in place: Status: Acute (3) CHF (congestive heart failure): Status: Acute 07/09/24 1413 Date Abby Patiño Signature: Date (if applicable) CC: Normal [facility] Direct serum free thyroxine (FT4) measurementOrdered By: Sharif Ramos on 06-26-2024 Free T4 [Mass/Vol] 1.34 ng/dL 0.76-1.46 [facility] TSH QnOrdered By: Sharif Ramos on 06-26-2024 Thyroid Stimulating Hormone (TSH) 2.090 uIU/mL 0.358-3.740 [facility] 12 Lead EKG performed by [facility] on 06-18-2024 12 Lead EKG performed by [facility] [address] [place] [address] 12 Lead EKG performed by [facility] 06/18/24 1250 MR#: [id number] Acct: [id number] Name: MANSOORDAMIENSHERRIE Rep #: [id number] : 1935 89 From: Andrea Hawthorne MD Attending Dr: Dr. Andrea Hawthorne MD Status: DEP A MB Ordering Dr: Andrea Hawthorne MD Date: 06/18/24 Location: [facility] [place] Sex: F C Admitted: BMS/12 Lead EKG performed by [facility] ECG Report Interpretation ----Electronic ventricular pacemaker Pacemaker ECG, No further analysis Electronically signed on 06/23/2024 at 08:30 by Andrea Hawthorne [employer] Software Version [id number] 06/23/24 0833 Date Andrea Hawthorne MD CC: Sharif Ramos MD Date Dictated: 06/18/24 1250 Date Transcribed: 06/18/241249 Web Press Operator Helper Offset: CO Signed Normal [facility] Cardiology Visit Reporton Cardiology Visit Report [facility] [address] [place] [address] OFFICE VISIT Date of Service: 06/18/24 MR#: [id number] Acct: [id number] Name: SHERRIE LOZANO Rep #: [id number] : 1935 Provider: Dr. Andrea Hawthorne MD Age/Sex: 89/F Location: [facility] Status: Signed HPI HPI History of Present Illness Details: Pleasant 89-year-old lady who has recently relocated from [facility] here. She has a history of hypertension, chronic coronary artery disease status post an old myocardial infarction in 1995. She presented in June 2022 with a subtotal occlusion of the left anterior descending artery for which she had angioplasty and stenting of the left anterior descending artery and the circumflex artery. It appears that her ejection fraction was reduced she was giving a LifeVest and then subsequently this was converted to a [employer] DDDR defibrillator. She denies any chest pain or shortness of breath or paroxysmal nocturnal dyspnea pedal edema she is on guideline directed medical therapy for ischemic cardiomyopathy including Entresto, Farxiga, metoprolol. She has not had any tachyarrhythmias. Unfortunately since relocating here she has not seen or had her device interrogated. Her last echocardiogram had demonstrated an ejection fraction of 40 to 45% with hypokinesis of the apex and lateral wall and posterior salazar. There was mild 1+ aortic regurgitation. Her physical exam today demonstrates clear lung garcia regular rate and rhythm and no pedal edema her electrocardiogram demonstrates electronic biventricular pacing at 70 bpm. Intake Vital Signs 10/08/23 15:05 06/18/24 09:53 Height 5 ft 3 in 5 ft 3 in Weight: 128 lb BMI 22.6 BP 104/58 L Blood Pressure Location Lt brachial Position Sitting Respiration 16 Pulse 69 Pulse Source NIBP Pulse Oximetry (%) 95 Oxygen Delivery Method room air Intake Visit Reasons: ESTABLISH ([facility]) Learning Support Assistant Required: No Accompanied by: Nephew Is patient in pain?: No Allergies [id number] Reductase Inhibitor Adverse Reaction (Mild, Verified 06/18/24 13:12) muscle aches Medications ???Medication ???Instructions ???Recorded ???Confirmed ???Type amiodarone 100 mg tablet 100 mg PO DAILY heart failure 09/29/23 06/18/24 History aspirin 81 mg tablet,delayed 81 mg PO DAILY cardiac 09/29/23 06/18/24 History release furosemide 40 mg tablet 40 mg PO DAILY heart failure 09/29/23 06/18/24 History magnesium sulfate 100 mg capsule 400 mg PO DAILY muscle cramps 09/29/23 06/18/24 History sacubitril 24 mg-valsartan 26 mg 1 tab PO BID heart 09/29/23 06/18/24 History tablet (Entresto) calcium carbonate 500 mg (2.5 x 200 mg calcium (500 10/08/23 06/18/24 Rx mg)) PO TIDCM #0 tabs cholecalciferol (vitamin D3) 25 25 mcg PO DAILY #0 tabs 10/08/23 10/26/23 Rx mcg (1,000 unit) tablet food supplemt, lactose-reduced 120 ml PO TIDCM #0 mL 10/08/23 06/18/24 Rx 0.08 gram-1.5 kcal/mL oral liquid (Ensure Plus High Protein) menthol 0.44 %-zinc oxide 20.6 % 1 applic topical BID #0 grams 10/08/23 06/18/24 Rx topical ointment (Calmoseptine) sennosides 8.6 mg-docusate sodium 2 tab PO BID #0 tabs 10/08/23 06/18/24 Rx 50 mg tablet (Stool Softener-Stimulant Laxative) acetaminophen 500 mg tablet 1,000 mg PO Q8 10/26/23 06/18/24 History dapagliflozin propanediol 10 mg 10 mg PO QAM #60 tabs 06/18/24 06/18/24 Rx tablet (Farxiga) levothyroxine 25 mcg tablet mcg PO 06/18/24 06/18/24 History metoprolol succinate 25 mg 25 mg PO QDAY #60 tabs 06/18/24 06/18/24 Rx tablet,extended release 24 hr (Toprol XL) Have you fallen in the past year?: Yes (Hip Fx) [facility] Medical History Secondary hyperaldosteronism Hyperlipidemia Essential (primary) hypertension Ischemic cardiomyopathy Stage 3b chronic kidney disease (CKD) Chronic anemia CAD (coronary artery disease) Balance disorder Incontinence Debility Fracture of femoral neck, closed Contusion of pelvic region ICD (implantable cardioverter-defibrill ator) in place Pacemaker 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 Normal [facility] Absolute neutrophil countOrd ered By: Sharif Ramos on 06-06-2024 Neutrophils (Bld) [#/Vol] 3.6 10*3/uL 2.0-7.7 [facility] Basophil percentageOrdered B y: Sharif Ramos on 06-06-2024 Basophils/100 WBC (Bld) 0.5 % 0-1 [facility] Blood urea nitrogen (BUN)/cr eatinine ratioOrdered By: Sharif Ramos on 06-06-2024 Urea nitrogen/Creatinine [Mass ratio] 26.6 mg/mg High 10-20 [facility] Carbon dioxide measurementOr dered By: Sharif Ramos on 06-06-2024 CO2 [Moles/Vol] 25.0 mmol/L 21.0-32.0 [facility] Chloride measurementOrdered By: Sharif Ramos on 06-06-2024 Chloride [Moles/Vol] 110 mmol/L High 98-107 [facility] Eosinophil percentageOrdered By: hSarif Ramos on 06-06-2024 Eosinophils/100 WBC (Bld) 6.2 % High 0-5 [facility] Erythrocyte distribution wid th (RBC) [Ratio]Ordered By: Sharif Ramos on 06-06-2024 Erythrocyte distribution width (RBC) [Entitic vol] 48.0 fL High 35.1-43.9 [facility] Erythrocyte distribution wid th ratioOrdered By: Sharif Ramos on 06-06-2024 Erythrocyte distribution width (RBC) [Ratio] 13.2 % 11.6-14.6 [facility] Estimated glomerular filtrat ion rate (GFR) AmericanOrdered By: Sharif Ramos on 06-06-2024 Estimated GFR (MDRD) Amer 61 mL/min >60 [facility] Comment on above: GFR Calc Glomerular filtration rate ( GFR) estimationOrdered By: Sharif Ramos on 06-06-2024 Estimated GFR (MDRD) Non-Af Amer 50 mL/min Low >60 [facility] Comment on above: Non- GFR Calc Glucose measurementOrdered B y: Sharif Ramos on 06-06-2024 Glucose [Mass/Vol] 98 mg/dL 74-106 [facility] Hematocrit Auto (Bld) [Volum e fraction]Ordered By: richei Ramos on 06-06-2024 Hematocrit (Bld) [Volume fraction] 39.7 % 37-47 [facility] Hemoglobin measurementOrdere d By: Sharif Ramos on 06-06-2024 Hemoglobin (Bld) [Mass/Vol] 12.9 g/dL 12.0-15.0 [facility] Immature granulocytes/100 WB C Auto (Bld)Ordered By: Sharif Ramos on 06-06-2024 Immature granulocytes/100 WBC (Bld) 0.300 % 0.0-0.9 [facility] Comment on above: IG% - Immature Granu locytes (promyelocytes, myelocytes and metamyelocytes) > 1% indicates that a LEFT SHIFT is Present. Lymphocytes Auto (Unsp spec) [#/Vol]Ordered By: Sharif Ramos on 06-06-2024 Lymphocytes (Bld) [#/Vol] 1.31 10*3/uL 0.83-4.51 [facility] Lymphocytes/100 WBC Auto (Un sp spec)Ordered By: Sharif Ramos on 06-06-2024 Lymphocytes/100 WBC (Bld) 22.4 % 19-41 [facility] MCV (mean corpuscular volume ) determinationOrdered By: Sharif Ramos on 06-06-2024 MCV (RBC) [Entitic vol] 99.0 fL 81-99 [facility] Mean corpuscular hemoglobin (MCH) determinationOrdered By: Sharif Ramos on 06-06-2024 MCH (RBC) [Entitic mass] 32.2 pg High 27.0-32.0 [facility] Mean corpuscular hemoglobin concentration (MCHC) determinationOrdered By: Sharif Ramos on 06-06-2024 MCHC (RBC) [Mass/Vol] 32.5 g/dL 32-36 [facility] Mean platelet volume determi nationOrdered By: Sharif Ramos on 06-06-2024 Platelet mean volume (Bld) [Entitic vol] 10.4 fL 6.2-12.0 [facility] Monocyte percentageOrdered B y: Sharif Ramos on 06-06-2024 Monocytes/100 WBC (Bld) 9.2 % 0-10 [facility] Neutrophil percentageOrdered By: Sharif Ramos on 06-06-2024 Neutrophils/100 WBC (Bld) 61.4 % 47-70 [facility] Nucleated red blood cell per centageOrdered By: Sharif Ramos on 06-06-2024 Nucleated RBC/100 WBC (Bld) [Ratio] 0 % 0-5 [facility] Platelet countOrdered By: Cristina Ramos on 06-06-2024 Platelets (Bld) [#/Vol] 328 10*3/uL 150-450 [facility] Potassium measurementOrdered By: Sharif Ramos on 06-06-2024 Potassium [Moles/Vol] 4.1 mmol/L 3.5-5.1 [facility] RBC Auto (Bld) [#/Vol]Ordere d By: Sharif Ramos on 06-06-2024 RBC (Bld) [#/Vol] 4.01 10*6/uL Low 4.2-5.4 [facility] Serum anion gap measurementO rdered By: Sharif Ramos on 06-06-2024 Anion gap [Moles/Vol] 7 mmol/L 5-15 [facility] Serum or plasma calcium clarke urement (mass/volume)Ordered By: Sharif Ramos on 06-06-2024 Calcium [Mass/Vol] 9.2 mg/dL 8.5-10.1 [facility] Serum or plasma creatinine m easurement (mass/volume)Ordered By: Sharif Ramos on 06-06-2024 Creatinine [Mass/Vol] 1.09 mg/dL High 0.55-1.02 [facility] Comment on above: The validity of the calculated GFR & GFRAA in patients over 70 years has not been determined. Clinical correlation is essential. Serum or plasma urea nitroge n measurement (mass/volume)Ordered By: Sharif Ramos on 06-06-2024 Urea nitrogen [Mass/Vol] 29 mg/dL High 7-18 [facility] Sodium levelOrdered By: Snow Ramos on 06-06-2024 Sodium [Moles/Vol] 142 mmol/L 136-145 [facility] White blood cell (WBC) count Ordered By: Sharif Ramos on 06-06-2024 WBC (Bld) [#/Vol] 5.8 10*3/uL 4.4-11.0 [facility] Direct serum free thyroxine (FT4) measurementOrdered By: Sharif Ramos on 05-15-2024 Free T4 [Mass/Vol] 1.35 ng/dL 0.76-1.46 [facility] TSH QnOrdered By: Sharif Ramos on 05-15-2024 Thyroid Stimulating Hormone (TSH) 2.920 uIU/mL 0.358-3.740 [facility] Absolute neutrophil countOrd ered By: Sharif Ramos on 05-07-2024 Neutrophils (Bld) [#/Vol] 3.2 10*3/uL 2.0-7.7 [facility] Basophil percentageOrdered B y: Sharif Ramos on 05-07-2024 Basophils/100 WBC (Bld) 0.4 % 0-1 [facility] Blood urea nitrogen (BUN)/cr eatinine ratioOrdered By: Sharif Ramos on 05-07-2024 Urea nitrogen/Creatinine [Mass ratio] 30.2 mg/mg High 10-20 [facility] Carbon dioxide measurementOr dered By: Sharif Ramos on 05-07-2024 CO2 [Moles/Vol] 26.0 mmol/L 21.0-32.0 [facility] Chloride measurementOrdered By: Sharif Ramos on 05-07-2024 Chloride [Moles/Vol] 113 mmol/L High 98-107 [facility] Eosinophil percentageOrdered By: Sharif Ramos on 05-07-2024 Eosinophils/100 WBC (Bld) 6.8 % High 0-5 [facility] Erythrocyte distribution wid th (RBC) [Ratio]Ordered By: Sharif Ramos on 05-07-2024 Erythrocyte distribution width (RBC) [Entitic vol] 49.6 fL High 35.1-43.9 [facility] Erythrocyte distribution wid th ratioOrdered By: Sharif Ramos on 05-07-2024 Erythrocyte distribution width (RBC) [Ratio] 13.6 % 11.6-14.6 [facility] Estimated glomerular filtrat ion rate (GFR) AmericanOrdered By: Sharif Ramos on 05-07-2024 Estimated GFR (MDRD) Amer 57 mL/min Low >60 [facility] Comment on above: GFR Calc Glomerular filtration rate ( GFR) estimationOrdered By: Sharif Ramos on 05-07-2024 Estimated GFR (MDRD) Non-Af Amer 47 mL/min Low >60 [facility] Comment on above: Non- GFR Calc Glucose measurementOrdered B y: Sharif Ramos on 05-07-2024 Glucose [Mass/Vol] 110 mg/dL High 74-106 [facility] Comment on above: Fasting Glucose resu lt from 100 to 125 mg/dL suggests IMPAIRED HOMEOSTASIS per A.D.A. criteria. Hematocrit Auto (Bld) [Volum e fraction]Ordered By: Sharif Ramos on 05-07-2024 Hematocrit (Bld) [Volume fraction] 34.6 % Low 37-47 [facility] Hemoglobin measurementOrdere d By: Sharif Ramos on 05-07-2024 Hemoglobin (Bld) [Mass/Vol] 11.5 g/dL Low 12.0-15.0 [facility] Immature granulocytes/100 WB C Auto (Bld)Ordered By: Cristinakarsonzanemike Pereiraroxannagregg on 05-07-2024 Immature granulocytes/100 WBC (Bld) 0.400 % 0.0-0.9 [facility] Comment on above: IG% - Immature Granu locytes (promyelocytes, myelocytes and metamyelocytes) > 1% indicates that a LEFT SHIFT is Present. Lymphocytes Auto (Unsp spec) [#/Vol]Ordered By: Sharif Ramos on 05-07-2024 Lymphocytes (Bld) [#/Vol] 1.10 10*3/uL 0.83-4.51 [facility] Lymphocytes/100 WBC Auto (Un sp spec)Ordered By: Sharif Pereiraroxannagregg on 05-07-2024 Lymphocytes/100 WBC (Bld) 21.5 % 19-41 [facility] MCV (mean corpuscular volume ) determinationOrdered By: Sharif Ramos on 05-07-2024 MCV (RBC) [Entitic vol] 98.6 fL 81-99 [facility] Mean corpuscular hemoglobin (MCH) determinationOrdered By: Sharif Pereiraroxannagregg on 05-07-2024 MCH (RBC) [Entitic mass] 32.8 pg High 27.0-32.0 [facility] Mean corpuscular hemoglobin concentration (MCHC) determinationOrdered By: Sharif Ramos on 05-07-2024 MCHC (RBC) [Mass/Vol] 33.2 g/dL 32-36 [facility] Mean platelet volume determi nationOrdered By: Sharif Ramos on 05-07-2024 Platelet mean volume (Bld) [Entitic vol] 10.6 fL 6.2-12.0 [facility] Monocyte percentageOrdered B y: Sharif Pereiraroxannagregg on 05-07-2024 Monocytes/100 WBC (Bld) 9.2 % 0-10 [facility] Neutrophil percentageOrdered By: Sharif Ramos on 05-07-2024 Neutrophils/100 WBC (Bld) 61.7 % 47-70 [facility] Nucleated red blood cell per centageOrdered By: Sharif Ramos on 05-07-2024 Nucleated RBC/100 WBC (Bld) [Ratio] 0 % 0-5 [facility] Platelet countOrdered By: Cristina Ramos on 05-07-2024 Platelets (Bld) [#/Vol] 303 10*3/uL 150-450 [facility] Potassium measurementOrdered By: Sharif Ramos on 05-07-2024 Potassium [Moles/Vol] 4.1 mmol/L 3.5-5.1 [facility] RBC Auto (Bld) [#/Vol]Ordere d By: Sharif Ramos on 05-07-2024 RBC (Bld) [#/Vol] 3.51 10*6/uL Low 4.2-5.4 [facility] Serum anion gap measurementO rdered By: Sharif Ramos on 05-07-2024 Anion gap [Moles/Vol] 4 mmol/L Low 5-15 [facility] Serum or plasma calcium clarke urement (mass/volume)Ordered By: Sharif Ramos on 05-07-2024 Calcium [Mass/Vol] 9.0 mg/dL 8.5-10.1 [facility] Serum or plasma creatinine m easurement (mass/volume)Ordered By: Sharif Ramos on 05-07-2024 Creatinine [Mass/Vol] 1.16 mg/dL High 0.55-1.02 [facility] Comment on above: The validity of the calculated GFR & GFRAA in patients over 70 years has not been determined. Clinical correlation is essential. Serum or plasma urea nitroge n measurement (mass/volume)Ordered By: Sharif Ramos on 05-07-2024 Urea nitrogen [Mass/Vol] 35 mg/dL High 7-18 [facility] Sodium levelOrdered By: Snow Ramos on 05-07-2024 Sodium [Moles/Vol] 143 mmol/L 136-145 [facility] White blood cell (WBC) count Ordered By: Sharif Ramos on 12-04-2024 WBC (Bld) [#/Vol] 5.1 10*3/uL 4.4-11.0 [facility] COVID-19 virus antigen assay Ordered By: Tammi Frost on 10-10-2023 SARS-CoV-2 (COVID-19) Ag IA.rapid Ql (Resp) [facility] Basophil percentageOrdered B y: Tammi Frost on 10-09-2023 Chloride [Moles/Vol] 109 mmol/L 98-107 [facility] Glucose [Mass/Vol] 100 mg/dL 74-106 [facility] Comment on above: Fasting Glucose resu lt from 100 to 125 mg/dL suggests IMPAIRED HOMEOSTASIS per A.D.A. criteria. Hemoglobin (Bld) [Mass/Vol] 10.7 g/dL 12.0-15.0 [facility] Potassium [Moles/Vol] 4.4 mmol/L 3.5-5.1 [facility] Sodium [Moles/Vol] 139 mmol/L 136-145 [facility] WBC (Bld) [#/Vol] 8.3 10*3/uL 4.4-11.0 [facility] Determination of erythrocyte mean corpuscular volume (MCV)Ordered By: Tammi Frost on 10-09-2023 MCV (RBC) [Entitic vol] 95.8 fL 81-99 [facility] Erythrocyte distribution wid th ratioOrdered By: Tammi Frost on 10-09-2023 Erythrocyte distribution width (RBC) [Ratio] 16.0 % 11.6-14.6 [facility] Erythrocyte distribution wid th standard deviationOrdered By: Tammi Frost on 10-09-2023 Erythrocyte distribution width (RBC) [Entitic vol] 57.1 fL 35.1-43.9 [facility] Hematocrit Auto (Bld) [Volum e fraction]Ordered By: Tammi Frost on 10-09-2023 Hematocrit (Bld) [Volume fraction] 33.9 % 37-47 [facility] Laboratory - Chemistry and C hemistry - challengeOrdered By: Tammi Frost on 10-09-2023 CO2 [Moles/Vol] 27.0 mmol/L 21.0-32.0 [facility] Urea nitrogen/Creatinine [Mass ratio] 40.4 mg/mg 10-20 [facility] Laboratory - Hematology and Cell countsOrdered By: Tammi Frost on 10-09-2023 MCH (RBC) [Entitic mass] 30.2 pg 27.0-32.0 [facility] MCHC (RBC) [Mass/Vol] 31.6 g/dL 32-36 [facility] Platelet mean volume (Bld) [Entitic vol] 9.9 fL 6.2-12.0 [facility] Platelets (Bld) [#/Vol] 450 10*3/uL 150-450 [facility] No Panel InformationOrdered By: Tammi Frost on 10-09-2023 Estimated Creatinine Clearance Calc 26.00 ml/min [facility] Estimated GFR (MDRD) Amer 70 mL/min >60 [facility] Comment on above: GFR Calc Estimated GFR (MDRD) Non-Af Amer 58 mL/min >60 [facility] Comment on above: Non- GFR Calc RBC Auto (Bld) [#/Vol]Ordere d By: Tammi Frost on 10-09-2023 RBC (Bld) [#/Vol] 3.54 10*6/uL 4.2-5.4 [facility] Serum or plasma calcium clarke urement (mass/volume)Ordered By: Tammi Frost on 10-09-2023 Calcium [Mass/Vol] 8.7 mg/dL 8.5-10.1 [facility] Serum or plasma creatinine m easurement (mass/volume)Ordered By: Tammi Frost on 10-09-2023 Creatinine [Mass/Vol] 0.97 mg/dL 0.55-1.02 [facility] Comment on above: The validity of the calculated GFR & GFRAA in patients over 70 years has not been determined. Clinical correlation is essential. Serum or plasma urea nitroge n measurement (mass/volume)Ordered By: Tammi Frost on 10-09-2023 Urea nitrogen [Mass/Vol] 39 mg/dL 7-18 [facility] Thin prep Papanicolaou smear with manual screeningOrdered By: Tammi Frost on 10-09-2023 Thin prep Papanicolaou smear with manual screening 3 5-15 [facility] Absolute lymphocyte countOrd ered By: Anson Waite on 10-02-2023 Lymphocytes Auto (Unsp spec) [#/Vol] 0.69 10*3/uL 0.83-4.51 [facility] Automated lymphocyte count a s percentage of total leukocytesOrdered By: Anson Waite on 10-02-2023 Lymphocytes/100 WBC Auto (Unsp spec) 7.3 % 19-41 [facility] Basophil percentageOrdered B y: Anson Waite on 10-02-2023 Basophils/100 WBC (Bld) 0.2 % 0-1 [facility] Eosinophils/100 WBC (Bld) 0.6 % 0-5 [facility] Monocytes/100 WBC (Bld) 7.4 % 0-10 [facility] Neutrophils (Bld) [#/Vol] 8.0 10*3/uL 2.0-7.7 [facility] Neutrophils/100 WBC (Bld) 84.0 % 47-70 [facility] Immature granulocytes/100 WB C Auto (Bld)Ordered By: Anson Waite on 10-02-2023 Immature granulocytes/100 WBC (Bld) 0.500 % 0.0-0.9 [facility] Comment on above: IG% - Immature Granu locytes (promyelocytes, myelocytes and metamyelocytes) > 1% indicates that a LEFT SHIFT is Present. Laboratory - Hematology and Cell countsOrdered By: Anson Waite on 10-02-2023 Nucleated RBC/100 WBC (Bld) [Ratio] 0 % 0-5 [facility] Whole blood hemoglobin A1c/t otal hemoglobin ratio (mass fraction)Ordered By: Anson Waite on 10-02-2023 HbA1c (Bld) [Mass fraction] 5.4 % 3.8-5.6 [facility] Comment on above: Normal < 5.7 % Predi abetic 5.7 - 6.4 % Diabetic >or= 6.5 % Please note range changes. Basophil percentageOrdered B y: Mehdi Cabrera on 09-30-2023 Basophil percentage 3.8 mg/dL 2.5-4.9 [facility] Bilirubin [Mass/Vol] 0.60 mg/dL 0.20-1.00 [facility] Comment on above: For patients on eltr ombopag therapy, use of Dimension Barnard TBIL is not recommended. Protein [Mass/Vol] 6.1 g/dL 6.4-8.2 [facility] Laboratory - Chemistry and C hemistry - challengeOrdered By: Mehdi Cabrera on 09-30-2023 Albumin/Globulin [Mass ratio] 0.9 {ratio} 0.9-2.4 [facility] ALP [Catalytic activity/Vol] 68 U/L 45-117 [facility] ALT [Catalytic activity/Vol] 23 U/L 13-56 [facility] Globulin (S) [Mass/Vol] 3.2 g/dL 2.2-4.2 [facility] Magnesium [Mass/Vol] 2.9 mg/dL 1.6-2.6 [facility] Thin prep Papanicolaou smear with manual screeningOrdered By: Anson Waite on 09-30-2023 Thin prep Papanicolaou smear with manual screening 92 mg/dL 74-106 [facility] Comment on above: MANAGEMENT OF PATIEN T CARE PER NURSING PROTOCOL Thin prep Papanicolaou smear with manual screeningOrdered By: Mehdi Cabrera on 09-30-2023 Thin prep Papanicolaou smear with manual screening 2.9 g/dL 3.2-5.0 [facility] Thin prep Papanicolaou smear with manual screening 20 U/L 15-37 [facility] Absolute lymphocyte countOrd ered By: Grant Whitley on 09-29-2023 Lymphocytes Auto (Unsp spec) [#/Vol] 1.31 10*3/uL 0.83-4.51 [facility] Automated lymphocyte count a s percentage of total leukocytesOrdered By: Grant Whitley on 09-29-2023 Lymphocytes/100 WBC Auto (Unsp spec) 19.6 % 19-41 [facility] Basophil percentageOrdered B y: Mehdi Cabrera on 09-29-2023 Cholesterol [Mass/Vol] 195 mg/dL <200 [facility] Comment on above: <200 mg/dL Desirable 200-240 mg/dL Borderline >240 mg/dL High Risk Triglyceride [Mass/Vol] 87 mg/dL <199 [facility] Comment on above: The drugs N-Acetylcy steine and Metamizole may falsely depress this assay.Serum Triglycerides Reference Interval Normal <150 mg/dL Borderline high 150 - 199 mg/dL High 200 - 499 mg/dL Very High > or = 500 mg/dL Basophil percentageOrdered B y: Grant Whitley on 09-29-2023 Basophils/100 WBC (Bld) 0.3 % 0-1 [facility] Chloride [Moles/Vol] 106 mmol/L 98-107 [facility] Eosinophils/100 WBC (Bld) 1.6 % 0-5 [facility] Glucose [Mass/Vol] 93 mg/dL 74-106 [facility] Hemoglobin (Bld) [Mass/Vol] 14.8 g/dL 12.0-15.0 [facility] Monocytes/100 WBC (Bld) 5.8 % 0-10 [facility] Neutrophils (Bld) [#/Vol] 4.8 10*3/uL 2.0-7.7 [facility] Neutrophils/100 WBC (Bld) 71.8 % 47-70 [facility] Potassium [Moles/Vol] 4.9 mmol/L 3.5-5.1 [facility] Comment on above: Moderate Hemolysis, Result may be falsely increased. Sodium [Moles/Vol] 140 mmol/L 136-145 [facility] WBC (Bld) [#/Vol] 6.7 10*3/uL 4.4-11.0 [facility] Determination of erythrocyte mean corpuscular volume (MCV)Ordered By: Grant Whitley on 09-29-2023 MCV (RBC) [Entitic vol] 94.4 fL 81-99 [facility] Erythrocyte distribution wid th ratioOrdered By: Grant Whitley on 09-29-2023 Erythrocyte distribution width (RBC) [Ratio] 15.9 % 11.6-14.6 [facility] Erythrocyte distribution wid th standard deviationOrdered By: Grantcarlene Whitley on 09-29-2023 Erythrocyte distribution width (RBC) [Entitic vol] 55.5 fL 35.1-43.9 [facility] Hematocrit Auto (Bld) [Volum e fraction]Ordered By: Grant Whitley on 09-29-2023 Hematocrit (Bld) [Volume fraction] 45.6 % 37-47 [facility] Immature granulocytes/100 WB C Auto (Bld)Ordered By: Grant Whitley on 09-29-2023 Immature granulocytes/100 WBC (Bld) 0.900 % 0.0-0.9 [facility] Comment on above: IG% - Immature Granu locytes (promyelocytes, myelocytes and metamyelocytes) > 1% indicates that a LEFT SHIFT is Present. Laboratory - Chemistry and C hemistry - challengeOrdered By: Mehdi Cabrera on 09-29-2023 Cholesterol in HDL [Mass/Vol] 54 mg/dL >40 [facility] Comment on above: The drugs N-Acetylcy steine and Metamizole may falsely depress this assay. Reference Range HDL <40 mg/dL Low HDL Cholesterol HDL >or= 60 mg/dL High HDL Cholesterol Cholesterol in LDL [Mass/Vol] 124 mg/dL 0-130 [facility] Laboratory - Chemistry and C hemistry - challengeOrdered By: Grant Whitley on 09-29-2023 CO2 [Moles/Vol] 31.0 mmol/L 21.0-32.0 [facility] Urea nitrogen/Creatinine [Mass ratio] 36.0 mg/mg 10-20 [facility] Laboratory - Hematology and Cell countsOrdered By: Grant Whitley on 09-29-2023 MCH (RBC) [Entitic mass] 30.6 pg 27.0-32.0 [facility] MCHC (RBC) [Mass/Vol] 32.5 g/dL 32-36 [facility] Nucleated RBC/100 WBC (Bld) [Ratio] 0 % 0-5 [facility] Platelet mean volume (Bld) [Entitic vol] 9.9 fL 6.2-12.0 [facility] Platelets (Bld) [#/Vol] 314 10*3/uL 150-450 [facility] No Panel InformationOrdered By: Mehdi Cabrera on 09-29-2023 VLDL Cholesterol 17 mg/dL 5-40 [facility] No Panel InformationOrdered By: Grant Whitley on 09-29-2023 Estimated Creatinine Clearance Calc 25.84 ml/min [facility] Estimated GFR (MDRD) Amer 67 mL/min >60 [facility] Comment on above: GFR Calc Estimated GFR (MDRD) Non-Af Amer 56 mL/min >60 [facility] Comment on above: Non- GFR Calc RBC Auto (Bld) [#/Vol]Ordere d By: Grant Whitley on 09-29-2023 RBC (Bld) [#/Vol] 4.83 10*6/uL 4.2-5.4 [facility] Serum or plasma calcium clarke urement (mass/volume)Ordered By: Grant Whitley on 09-29-2023 Calcium [Mass/Vol] 9.6 mg/dL 8.5-10.1 [facility] Serum or plasma creatinine m easurement (mass/volume)Ordered By: Grant Whitley on 09-29-2023 Creatinine [Mass/Vol] 1.00 mg/dL 0.55-1.02 [facility] Comment on above: The validity of the calculated GFR & GFRAA in patients over 70 years has not been determined. Clinical correlation is essential. Serum or plasma urea nitroge n measurement (mass/volume)Ordered By: Grant Whitley on 09-29-2023 Urea nitrogen [Mass/Vol] 36 mg/dL 7 [facility] Thin prep Papanicolaou smear with manual screeningOrdered By: Grantcarlene Whitley on 09-29-2023 Thin prep Papanicolaou smear with manual screening 3 10-16 [facility] Vital Signs Date Time Vital Sign Value Performing Clinician Faci lity 06-18-2024 09:53-0500 Body mass index (BMI) [Ratio] 22.6 kg/m2 Dr. Viet Lovett MD Work Phone: [facility] 06-18-2024 09:53-0500 Body weight 58.[address] Viet Lovett MD Work Phone: [facility] 06-18-2024 09:53-0500 Diastolic blood pressure 58 mm[Hg] Dr. Viet Lovett MD Work Phone: [facility] 06-18-2024 09:53-0500 Heart rate 69 /min Dr. Viet Lovett MD Work Phone: [facility] 06-18-2024 09:53-0500 Respiratory rate 16 /min Dr. Viet Lovett MD Work Phone: [facility] 06-18-2024 09:53-0500 SaO2% (BldA) [Mass fraction] 95 % Dr. Viet Lovett MD Work Phone: [facility] 06-18-2024 09:53-0500 Systolic blood pressure 104 mm[Hg] Dr. Viet Lovtet MD Work Phone: [facility] 10-10-2023 09:37-0400 Body temperature 97.7 [degF] Dr. Grant Whitley Work Phone: 7(040)896-355642 [place] [address] 10-10-2023 09:37-0400 Diastolic blood pressure 55 mm[Hg] Dr. Grant Whitley Work Phone: 7(560)690-110342 [place] [address] 10-10-2023 09:37-0400 Heart rate 70 /min Dr. Grant Whitley Work Phone: 6(690)734-995642 [place] [address] 10-10-2023 09:37-0400 Respiratory rate 16 /min Dr. Grant Whitley Work Phone: 9(945)128-371242 [place] [address] 10-10-2023 09:37-0400 SaO2% (BldA) [Mass fraction] 97 % Dr. Grant Whitley Work Phone: 6(976)891-029842 [place] [address] 10-10-2023 09:37-0400 Systolic blood pressure 132 mm[Hg] Dr. Grant Whitley Work Phone: 0(673)319-403917 [place] [address] 10-08-2023 15:05-0400 Body height 160.[address] Grant Whitley Work Phone: 7(963)297-035342 [place] [address] 10-08-2023 15:05-0400 Body weight 40.[address] Grant Whitley Work Phone: 1(831)912-460842 [place] [address] 10-07-2023 04:22-0400 Body mass index (BMI) [Ratio] 15.7 kg/m2 Dr. Grant Whitley Work Phone: 9(357)281-345442 [place] [address] 10-01-2023 01:28-0400 Inhaled oxygen flow rate 2 L/min Dr. Grant Whitley Work Phone: 0(410)431-946942 [place] [address] 09-29-2023 14:46-0400 Body temperature 98.1 [degF] [facility] 09-29-2023 14:46-0400 Diastolic blood pressure 70 mm[Hg] [facility] 09-29-2023 14:46-0400 Heart rate 70 /min [facility] 09-29-2023 14:46-0400 Respiratory rate 14 /min [facility] 09-29-2023 14:46-0400 SaO2% (BldA) [Mass fraction] 99 % [facility] 09-29-2023 14:46-0400 Systolic blood pressure 163 mm[Hg] [facility] 09-29-2023 12:46-0400 Body height 160.02 cm [facility] 09-29-2023 12:46-0400 Body mass index (BMI) [Ratio] 16.1 kg/m2 [facility] 09-29-2023 12:46-0400 Body weight 41.3 kg [facility] Encounters Encounter Date Encounter Type Care Provider Facility Start: 10-08-2024 End: 10-08-2024 ambulatory Sharif Ramos MD [facility] Work Phone: Start: 10-08-2024 End: 10-08-2024 [facility] Start: 10-08-2024 End: 10-08-2024 ambulatory Sharif CARRENO Facility:[facility] Start: 09-02-2024 End: 09-02-2024 [facility] Start: 09-02-2024 End: 09-02-2024 Patient encounter procedure Lashae NAM -[facility] Work Phone: Start: 08-17-2024 End: 08-17-2024 ambulatory Andrea Hawthorne Facility:[facility] Start: 08-17-2024 End: 08-17-[address] Andrea Hawthorne MD -[facility] Work Phone: Start: 08-13-2024 [facility] Start: 08-13-2024 End: 08-13-[address] Viet Lovett MD Work Phone: [facility] Work Phone: Start: 08-13-2024 End: 08-13-2024 [facility] Start: 08-12-2024 End: 08-13-2024 ambulatory Efewongbe Oleghe OLS Facility:[facility] Start: 08-12-2024 End: 08-12-[address] Sharif Ramos MD -[facility] Work Phone: Start: 07-31-2024 End: 07-31-2024 ambulatory Efewzanebe Randallroxannae Facility:[facility] Start: 07-31-2024 End: 07-31-2024 Patient encounter procedure Jamar DE LA PAZ -[facility] Work Phone: Start: 07-09-2024 End: 07-09-2024 ambulatory Andrea Hawthorne Facility:[facility] Start: 07-09-2024 End: 07-09-[address] Andrea Hawthorne MD -[facility] Work Phone: Start: 06-26-2024 ambulatory Efewongbe Oleghe OLS Fa cility:[facility] Start: 06-26-2024 [facility] Start: 06-24-2024 End: 06-24-2024 ambulatory Efewongbe Oleghe OLS Facility:[facility] Start: 06-24-2024 End: 06-24-2024 Patient encounter procedure Lashae NAM -[facility] Work Phone: Start: 06-18-2024 End: 06-18-[address] Andrea Hawthorne MD -[facility] Work Phone: Start: 06-18-2024 End: 06-18-2024 ambulatory Efewongbe Oleghe OLS Facility:[facility] Start: 06-17-2024 End: 06-17-2024 ambulatory Efewongbe Oleghe OLS Facility:[facility] Start: 06-17-2024 End: 06-17-[address] Sharif Ramos MD -[facility] Work Phone: Start: 06-06-2024 ambulatory Efkarsonongbe Latashae OLS Fa cility:[facility] Start: 06-06-2024 Registered Referred Sharif Ramos MD [facility] Start: 05-15-2024 End: 05-15-2024 Departed Referred Sharif Ramos MD [facility] Start: 05-15-2024 End: 05-15-2024 ambulatory Efkarsonongbe Randallroxannae OLS Facility:[facility] Start: 05-07-2024 End: 05-07-2024 Departed Referred Sharif Ramos MD [facility] Start: 05-06-2024 End: 05-07-2024 ambulatory Efewongbe Randallghe OLS Facility:[facility] Start: 04-24-2024 End: 04-24-2024 ambulatory Efewongbe Randallghe OLS Facility:[facility] Start: 04-09-2024 End: 04-09-2024 ambulatory Efewongbe Randallghe OLS Facility:[facility] Start: 04-03-2024 End: 04-03-2024 ambulatory Efewongbe Randallghe OLS Facility:[facility] Start: 03-28-2024 End: 03-28-2024 ambulatory Efewongbe Randallghe OLS Facility:[facility] Start: 03-07-2024 End: 03-07-2024 ambulatory Lashae Garner ACCESS DEVELOPER Facility:[facility] Start: 03-05-2024 ambulatory Efewongbe Oleghe OLS Fa cility:[facility] Start: 02-21-2024 End: 02-21-2024 ambulatory Efewongbe Oleghe OLS Facility:[facility] Start: 02-19-2024 End: 02-19-2024 ambulatory Efewongbe Oleghe Facility:[facility] Start: 02-06-2024 ambulatory Efewongbe Oleghe OLS Fa cility:[facility] Start: 01-28-2024 End: 01-28-2024 ambulatory Lashae Pascual ACCESS DEVELOPER Facility:[facility] Start: 01-10-2024 ambulatory Efewongbe Oleghe OLS Fa cility:[facility] Start: 01-09-2024 ambulatory Efewongbe Oleghe OLS Fa cility:[facility] Start: 12-11-2023 End: 12-11-2023 ambulatory Efewongbe Oleghe Facility[facility] Start: 12-05-2023 End: 12-05-2023 ambulatory Efewongbe Oleghe OLS Facility:[facility] Start: 11-30-2023 End: 11-30-2023 ambulatory Lashae Garner ACCESS DEVELOPER Facility:[facility] Start: 11-29-2023 End: 11-29-2023 ambulatory Efewongbe Oleghe OLS Facility:[facility] Start: 11-22-2023 End: 11-22-2023 ambulatory Efewongbe Oleghe OLS Facility:[facility] Start: 11-15-2023 End: 11-15-2023 ambulatory Efewongbe Oleghe OLS Facility:[facility] Start: 11-05-2023 End: 11-05-2023 ambulatory Efewongbe Oleghe OLS Facility:[facility] Start: 10-09-2023 Non-patient / Non-visit Dr. Tamica Whitley Work Phone: [facility] Work Phone: Start: 10-08-2023 Non-patient / Non-visit Dr. Tamica Whitley Work Phone: [facility] Work Phone: Start: 10-07-2023 Non-patient / Non-visit Dr. Tamica Whitley Work Phone: [facility] Work Phone: Start: 10-06-2023 Non-patient / Non-visit Dr. Tamica Whitley Work Phone: [facility] Work Phone: Start: 10-05-2023 Non-patient / Non-visit Dr. Tamica Whitley Work Phone: [facility] Work Phone: Start: 10-04-2023 Non-patient / Non-visit Dr. Tamica Whitley Work Phone: [facility] Work Phone: Start: 10-03-2023 Non-patient / Non-visit Dr. Tamica Whitley Work Phone: [facility] Work Phone: Start: 10-02-2023 Non-patient / Non-visit Dr. Tamica Whitley Work Phone: [facility] Work Phone: Start: 10-01-2023 Non-patient / Non-visit Dr. Tamica Whitley Work Phone: [facility] Work Phone: Start: 10-01-2023 Non-patient / Non-visit Dr. Tamica Whitley Work Phone: [facility] Start: 10-01-2023 Non-patient / Non-visit Dr. Tamica Whitley Work Phone: [facility] Start: 09-30-2023 Non-patient / Non-visit Dr. Tamica Whitley Work Phone: [facility] Start: 09-30-2023 Non-patient / Non-visit Dr. Tamica Whitley Work Phone: [facility] Work Phone: Start: 09-29-2023 End: 10-10-2023 Evaluation and management of inpatient [facility] Work Phone: Procedures Date Procedure Procedure Detail Performing Clinician Start: 08-13-[address] German Lovett MD Work Phone: Start: 08-13-2024 Urnls dip stick/tabl et reagent auto microscopy Sharif Ramos MD Start: 06-18-2024 Evaluation of diagno stic study results Dr. Viet Lovett MD Work Phone: Start: 10-10-[address] Grant Whitley Work Phone: Start: 09-30-2023 Plain X-ray of hip Dr. Grant Whitley Work Phone: Start: 09-30-2023 Prosthetic uncemente d hemiarthroplasty of hip Dr. Grant Whitley Work Phone: Start: 09-29-2023 Plain chest X-ray Start: 09-29-2023 Plain x-ray of pelvi s and lower extremity Start: 09-29-2023 Pelvis X-ray Plan of Treatment Date Care Activity Detail Author Start: 10-10-2023 Patient discharge [facility] Start: 10-04-2023 Verification routine [facility] Start: 10-02-2023 Care planning and pr oblem solving actions [facility] Start: 10-01-2023 Consultation [facility] Start: 09-30-2023 End: 09-30-2023 [facility] Start: 09-30-2023 Ambulation therapy management [facility] Start: 09-30-2023 Application of device [facility] Start: 09-30-2023 Exercises [facility] Start: 09-30-2023 Following clinical p athway protocol [facility] Start: 09-30-2023 Introduction of urin gideon catheter [facility] Start: 09-30-2023 Neurovascular assessment [facility] Start: 09-30-2023 Patient education [facility] Start: 09-30-2023 Provision of activit y privileges [facility] Start: 09-30-2023 Referral to occupati onal therapist [facility] Start: 09-30-2023 Referral to service [facility] Start: 09-30-2023 Skin care [facility] Start: 09-30-2023 Vital signs measurements [facility] Start: 09-30-2023 Wound care [facility] Start: 09-30-2023 Recommendation to co ntinue with treatment [facility] Start: 09-29-2023 Application of inter mittent pneumatic compression device [facility] Start: 09-29-2023 Following clinical p athway protocol [facility] Start: 09-29-2023 Assessment of risk o f venous thromboembolism [facility] Start: 09-29-2023 Documentation procedure [facility] Start: 09-29-2023 Incentive spirometry [facility] Start: 09-29-2023 Insertion of cathete r into peripheral vein [facility] Start: 09-29-2023 Measuring intake and output [facility] Start: 09-29-2023 Providing care accor ding to standard [facility] Start: 09-29-2023 Referral to service [facility] Start: 09-29-2023 [facility] Start: 09-29-2023 Hospital admission, emergency, from emergency room, medical nature [facility] Start: 09-29-2023 Verification routine [facility] Start: 09-29-2023 Admission procedure [facility] Start: 09-29-2023 [facility] Start: 09-29-2023 Patient referral to dietitian [facility] Patient Education Bruises (Contusions) ED Skin Tear (Skin Avulsion) [facility] Work Phone: Patient referral [facility] Work Phone: Immunizations Immunization Date Immunization Notes Care Provider Delvis marley 09-29-2023 tetanus toxoid, redu jorge diphtheria toxoid, and acellular pertussis vaccine, adsorbed [facility] Payers Date Payer Category Payer Medicaid [id number] 2023 Private Health Insurance [id number] 2023 Self-pay Unknown [id number] 2.16.8 40.1.826606.3.579.2.462 Unknown [id number] 2.16.8 40.1.827951.3.579.2.462 Unknown [id number] 2.16.8 40.1.128839.3.579.2.462 Unknown [id number] 2.16.8 40.1.109644.3.579.2.462 Unknown [id number] 2.16.8 40.1.305574.3.579.2.462 Unknown [id number] 2.16.8 40.1.135539.3.579.2.462 Unknown [id number] 2.16.8 40.1.316908.3.579.2.462 Unknown [id number] 2.16.8 40.1.761914.3.579.2.462 Unknown [id number] 2.16.8 40.1.887266.3.579.2.462 Unknown [id number] 2.16.8 40.1.043584.3.579.2.462 Unknown [id number] 2.16.8 40.1.890114.3.579.2.462 Unknown [id number] 2.16.8 40.1.036672.3.579.2.462 Unknown [id number] 2.16.8 40.1.025505.3.579.2.462 Unknown [id number] 2.16.8 40.1.386584.3.579.2.462 Unknown [id number] 2.16.8 40.1.729778.3.579.2.462 Unknown [id number] 2.16.8 40.1.057110.3.579.2.462 Unknown [id number] 2.16.8 40.1.598123.3.579.2.462 Unknown [id number] 2.16.8 40.1.359651.3.579.2.462 Unknown [id number] 2.16.8 40.1.237715.3.579.2.462 Unknown [id number] 2.16.8 40.1.281649.3.579.2.462 Unknown [id number] 2.16.8 40.1.358710.3.579.2.462 Unknown [id number] 2.16.8 40.1.487682.3.579.2.462 Unknown [id number] 2.16.8 40.1.179229.3.579.2.462 Unknown [id number] 2.16.8 40.1.813019.3.579.2.462 Unknown [id number] 2.16.8 40.1.074535.3.579.2.462 Unknown [id number] 2.16.8 40.1.117099.3.579.2.462 Unknown [id number] 2.16.8 40.1.517354.3.579.2.462 Unknown [id number] 2.16.8 40.1.626521.3.579.2.462 Unknown [id number] 2.16.8 40.1.693788.3.579.2.462 Unknown [id number] 2.16.8 40.1.305657.3.579.2.462 Unknown [id number] 2.16.8 40.1.081184.3.579.2.462 Unknown [id number] 2.16.8 40.1.593586.3.579.2.462 Unknown [id number] 2.16.8 40.1.338810.3.579.2.462 Unknown [id number] 2.16.8 40.1.709196.3.579.2.462 Unknown [id number] 2.16.8 40.1.354019.3.579.2.462 Unknown [id number] 2.16.8 40.1.375162.3.579.2.462 Social History Date Type Detail Facility Start: 09-29-2023 End: 09-29-2023 Tobacco smoking status NHIS Unknown if ever smoked [facility] Start: 1935 Sex Assigned At Female [facility] Start: 06-19-2024 Tobacco smoking stat us MIIS Never smoked tobacco (finding) [facility] Start: 09-04-2024 End: 09-04-2024 Sex Female (finding) [facility] Medical Equipment Procedure Code Equipment Code Equipment Origin al Text Equipment Identifier Dates Primary uncemented hemiarthroplasty of hip 132 CEMENTED HIP STEM FDA Start: 09-30-2023 Primary uncemented hemiarthroplasty of hip DISTAL SPACER FDA Start: 09-30-2023 Primary uncemented hemiarthroplasty of hip KIT,FEMORAL BONE CEMENT PREP FDA Start: 09-30-2023 Primary uncemented hemiarthroplasty of hip UNIVERSAL HEAD BIPOLAR COMPONENT FDA Start: 09-30-2023 Primary uncemented hemiarthroplasty of hip V40 FEMORAL HEAD FDA Start: 09-30-2023 Primary uncemented hemiarthroplasty of hip Orthopaedic cement, non-antimicrobial [id number] FDA Start: 09-30-2023 Primary uncemented hemiarthroplasty of hip 132 CEMENTED HIP STEM FDA Start: 09-30-2023 Primary uncemented hemiarthroplasty of hip DISTAL SPACER FDA Start: 09-30-2023 Primary uncemented hemiarthroplasty of hip KIT,FEMORAL BONE CEMENT PREP FDA Start: 09-30-2023 Primary uncemented hemiarthroplasty of hip UNIVERSAL HEAD BIPOLAR COMPONENT FDA Start: 09-30-2023 Primary uncemented hemiarthroplasty of hip V40 FEMORAL HEAD FDA Start: 09-30-2023 Primary uncemented hemiarthroplasty of hip 132 CEMENTED HIP STEM FDA Start: 09-30-2023 Primary uncemented hemiarthroplasty of hip DISTAL SPACER FDA Start: 09-30-2023 Primary uncemented hemiarthroplasty of hip KIT,FEMORAL BONE CEMENT PREP FDA Start: 09-30-2023 Primary uncemented hemiarthroplasty of hip UNIVERSAL HEAD BIPOLAR COMPONENT FDA Start: 09-30-2023 Primary uncemented hemiarthroplasty of hip V40 FEMORAL HEAD FDA Start: 09-30-2023 Primary uncemented hemiarthroplasty of hip 132 CEMENTED HIP STEM FDA Start: 09-30-2023 Primary uncemented hemiarthroplasty of hip DISTAL SPACER FDA Start: 09-30-2023 Primary uncemented hemiarthroplasty of hip KIT,FEMORAL BONE CEMENT PREP FDA Start: 09-30-2023 Primary uncemented hemiarthroplasty of hip UNIVERSAL HEAD BIPOLAR COMPONENT FDA Start: 09-30-2023 Primary uncemented hemiarthroplasty of hip V40 FEMORAL HEAD FDA Start: 09-30-2023 Goals Date Patient Goal Desired Activity /State Functional Status Date Assessment Result Facility 10-10-2023 Functional status Bathroom Privilege [facility] Work Phone: Mental Status Date Assessment Result Facility 10-10-2023 Cognitive function Voice/Name [facility] Work Phone: Clinical Notes 09-29-2023 to 07-09-2024 Note Date & Type Note Facility 07-09-2024 Evaluation note Diagnosis Onset Date Resolution CHF (congestive heart failure) acute July 09 10:48am 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 acute July 09 10:48am Ischemic cardiomyopathy acute F eb2024 10:48am [facility] Work Phone: 1(550) 259-794001-15-2025 Evaluation note* Diagnosis Onset Date Resolution Status Admit Date CHF (congestive heart failure) acute June 18 1:04pm Essential (primary) hypertension acute June 18 1:04pm Hyperlipidemia acute June 182024 1:04pm Ischemic cardiomyopathy acute J anuary 2024 1:04pm Presence of combination internal cardiac defibrillator (ICD) and pacemaker acute June 18 1:04pm Stented coronary artery June 07, 2022 acute June 18, 2024 1:04pm CHF (congestive heart failure) acute July 09 10:48am ICD (implantable cardioverter-defibrillator) in place acute July 09 10:48am Ischemic cardiomyopathy acute F ebruary 2024 10:48am [facility] [facility] Work Phone: 1(259) 897-326305-08-2024 Consult note Author Jazmin Oliveira [facility] October 10, 2023 10:50am Note Date/Time October 10, 2023 10:50a m [facility] Medical Records Department [address] [place] [address] Counseling Note - Pharmacy 10/10/23 1050 MR#: [id number] Acct: [id number] Name: SHERRIE LOZANO Rep #:[id number] : 1935 88 From: Jazmin Oliveira PCP: Dr. Viet Lovett MD Status:ADM I N Y Location: [facility] [place] [id number] Pharmacy [place] Med Reconciliation Pharmacy Service has performed discharge medication reconciliation for this patient. The patient's discharge medication list was reviewed for discrepancies and discrepancies were resolved. Medications at Discharge Home Medications amiodarone 100 mg tablet 100 mg PO DAILY heart failure 09/29/23 aspirin 81 mg tablet,delayed release 81 mg PO DAILY cardiac 09/29/23 dapagliflozin propanediol 10 mg tablet (Farxiga) 10 mg PO DAILY renal failure 09/29/23 furosemide 40 mg tablet 40 mg PO DAILY heart failure 09/29/23 magnesium sulfate 100 mg capsule 400 mg PO DAILY muscle cramps 09/29/23 metoprolol succinate 25 mg tablet,extended release 24 hr 12.5 mg PO DAILY BP 09/29/23 sacubitril 24 mg-valsartan 26 mg tablet (Entresto) 1 tab PO BID heart 09/29/23 acetaminophen 500 mg tablet 1,000 mg (2 x 500 mg) PO Q8 #0 tabs 10/08/23 apixaban 5 mg tablet (Eliquis) 2.5 mg (1/2 x 5 mg) PO BID #0 tabs 10/08/23 calcium carbonate 500 mg (2.5 x 200 mg calcium (500 mg)) PO TIDCM #0 tabs 10/08/23 cholecalciferol (vitamin D3) 25 mcg (1,000 unit) tablet 25 mcg PO DAILY #0 tabs 10/08/23 food supplemt, lactose-reduced 0.08 gram-1.5 kcal/mL oral liquid (Ensure Plus High Protein) 120 ml PO TIDCM #0 mL 10/08/23 menthol 0.44 %-zinc oxide 20.6 % topical ointment (Calmoseptine) 1 applic topical BID #0 grams 10/08/23 oxycodone 5 mg tablet 2.5 mg (1/2 x 5 mg) PO Q6H PRN pain 2 days #4 tabs 10/08/23 sennosides 8.6 mg-docusate sodium 50 mg tablet (Stool Softener-Stimulant Laxative) 2 tab PO BID #0 tabs 10/08/23 10/10/23 1050 <Electronically signed by Jazmin Oliveira> Date _ Jazmin Oliveira Cosigner Signature (if applicable): Date CC: ~ Signed [facility] Work Phone: 1(838) 940-519105-07-2024 Progress note Author Tammi Frost [facility] October 09, 2023 4:09pm Note Date/Time October 09, 2023 4:09pm [facility] Medical Records Department [address] [place] [address] Progress Note - Hospitalist 10/09/23 1607 MR#: [id number] Acct: [id number] Name: SHERRIE LOZANO Rep #:[id number] : 1935 88 From: Tammi Frost DO PCP: Dr. Viet Lovett MD Status:ADM I N Location: [facility] [place] FE539-1 Reason for Visit Reason for Visit: Left hip pain status post fall Subjective Subjective Patient reports her only complaint is that she is not sleeping well at night dueto the bed being poor. No other complaints at this time. I did inform her we are still waiting for insurance to approve her discharge to rehab. She voices frustration with the process but no frustration with us. Objective Data Objective Data Vital Signs: Vital Signs Temp Pulse Resp BP Pulse Ox O2 Del Method O2 Flow Rate 97.7 F L 67 16 103/43 L 96 Room Air 2 10/09/23 14:46 10/09/23 14:46 10/09/23 14:46 10/09/23 14:46 10/09/23 14:46 10/09/23 14:46 10/01/23 01:28 Oxygen Flow Rate (L/min) 2 Oxygen Delivery Method Room Air Weight: 40.3 kg Body Mass Index (BMI) 15.7 Intake & Output: Intake and Output for Last 24 Hours 10/07/23 10/08/23 10/09/23 23:59 23:59 23:59 Intake Total 1050 / 1400 500 / 500 Balance 1050 / 1400 500 / 500 Medical Nutrition Assessment Dietitian: Malnutrition Criteria Met Start: 09/30/23 15:18 Freq: Status: Active Protocol: Document 10/08/23 15:25 SLA (Rec: 10/08/23 15:25 SLA Desktop) Nutrition Malnutrition Evidence of Malnutrition Exists Yes Malnutrition (severe): Chronic Evidenced By Suboptimal Energy Intake ( Severe),Weight Loss (Moderate) ,Physical Changes (Moderate) Clinical Problem Chronic Disease or Condition Related Malnutrition Etiology suspect severe protein-calorie malnutrition in the context of chronic disease and debility related to inadequate oral/energy intake Signs/Symptoms as evidenced by BMI 15.7, ~9.7 % unintentional weight loss in x 1 wk, PO meeting <50% estimated nutrition needs x 1 month 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 Fluid restriction per physician as indicated. Continue 120mL ensure plus HP 3 times per day w/ medpass. Continue ensure compact w/ breakfast, fortified pudding w / lunch and magic cup w/ dinner. Rec appetite stimulant to help encourage increased po intake at meals Lab / Micro Data 10/09/23 07:11 10/09/23 07:11 Labs: Laboratory Results - last 24 hr 10/09/23 07:11: WBC 8.3, RBC 3.54 L, Hgb 10.7 L, Hct 33.9 L, MCV 95.8, MCH 30.2,MCHC 31.6 L, RDW Std Deviation 57.1 H, RDW Coeff of Marie 16.0 H, Plt Count 450, MPV 9.9, Sodium 139, Potassium 4.4, Chloride 109 H, Carbon Dioxide 27.0, Anion Gap 3 L, BUN 39 H, Creatinine 0.97, Estim Creat Clear Calc 26.00, Est GFR (MDRD)Af Amer 70, Est GFR (MDRD) Non-Af 58 L, BUN/Creatinine Ratio 40.4 H, Glucose 100, Calcium 8.7 Physical Exam Narrative Patient has no complaints at this time. States her pain is fairly well- controlled. Discussed discharge issues and patient voices understanding. Const alert, oriented x3, no apparent distress and no limitations; Negative for average body habitus, healthy appearing or well nourished Constitutional Narrative: Cachectic, frail, elderly, white female, sitting up in the chair at the bedside,therapy services are at the bedside doing exercises with her while sitting up marcela chair, patient appears comfortable and nontoxic HEENT normocephalic, head/scalp atraumatic and moist oral mucous membranes Psych mental status grossly normal and affect normal Psych Narrative: Very pleasant, interacts appropriately Assessment & Plan Assessment/Plan (1) Fracture of femoral neck, closed: QUALIFIERS: Encounter type: initial encounter Laterality: left Qualified Code(s): S72.002A - Fracture of unspecified part of neck of left femur, initial encounter for closed fracture (2) Debility: (3) S/P hip hemiarthroplasty: PLAN: Plan Left femoral neck fracture status post left hip hemiarthroplasty -Postop day 9 -Continue scheduled Tylenol -Weightbearing as tolerated -Will need SNF at discharge and currently awaiting acceptance and improve assurance approval -patient has been medically stable for discharge since 10/04/2023 -Continue occupational and physical therapy while hospitalized Generalized weakness/debility secondary to chronic illnesses and age -Continue PT/OT as noted above -SNF discharge pending Constipation -Resolved next-continue bowel regimen with scheduled MiraLAX and senna Severe malnutrition -Dietitian is following -Continue supplements Mild anemia -Appears to be stable -Will repeat CBC in a.m. for monitoring since patient is still hospitalized CKD stage IIIb -serum creatinine 1.0 on admission and stable -Avoid nephrotoxins as able -Repeat BMP in a.m. History of ICH with subsequent severe photosensitivity -This was related to a fall and has been within the last 2 months -Monitor closely with anticoagulation for DVT prophylaxis CAD/HTN/HPL -Restart Entresto and Farxiga at discharge next-continue home aspirin next- continue home Lasix -Continue home Toprol Ischemic cardiomyopathy/HFrEF -Currently compensated with no signs of decompensation -Continue home Lasix -Will recommend outpatient cardiology follow-up after discharge here as she is recently moved back to the area History of cardiac arrhythmia -History of PPM/AICD -continue home amiodarone OA -As needed pain medication as ordered DVT prophylaxis -Eliquis 2.5 mg daily for 3 weeks then stop CODE STATUS -full code Disposition: -Plan is for discharge to [facility] when patient is excepted. Patient's been medically ready for discharge since 10/04/2023. Charges/Coding Visit Charges Inpatient E&M: 90999 Subs Hosp L1 10/09/23 1609 <Electronically signed by Tammi Frost DO> Cosigner Signature (if applicable): CC: ~ Signed [facility] Work Phone: 1(889) 699-800105-06-2024 Progress note Author Tammi Frost [facility] October 08, 2023 5:12pm Note Date/Time October 08, 2023 5:12pm [facility] Medical Records Department [address] [place] [address] Progress Note - Hospitalist 10/08/23 1705 MR#: [id number] Acct: [id number] Name: SHERRIE LOZANO Rep #:[id number] : 1935 88 From: Tammi Frost DO PCP: Dr. Viet Lovett MD Status:ADM I N Location: [facility] [place] MC295-2 Reason for Visit Reason for Visit: Left hip pain status post fall Subjective Subjective Patient denies any issues currently. Unfortunately, insurance [place] and does not cover [facility]. They are making exception and currently reviewing. Patient has been medically ready for discharge since 10/04/2023. Objective Data Objective Data Vital Signs: Vital Signs Temp Pulse Resp BP Pulse Ox O2 Del Method O2 Flow Rate 98.7 F 69 18 118/48 L 97 Room Air 2 10/08/23 14:27 10/08/23 14:27 10/08/23 14:27 10/08/23 14:27 10/08/23 14:27 10/08/23 14:27 10/01/23 01:28 Oxygen Flow Rate (L/min) 2 Oxygen Delivery Method Room Air Weight: 40.3 kg Body Mass Index (BMI) 15.7 Intake & Output: Intake and Output for Last 24 Hours 10/06/23 10/07/23 10/08/23 23:59 23:59 23:59 Intake Total 500 / 750 1050 / 1400 500 / 500 Balance 500 / 750 1050 / 1400 500 / 500 Medical Nutrition Assessment Dietitian: Malnutrition Criteria Met Start: 09/30/23 15:18 Freq: Status: Active Protocol: Document 10/08/23 15:25 SLA (Rec: 10/08/23 15:25 [facility] Desktop) Nutrition Malnutrition Evidence of Malnutrition Exists Yes Malnutrition (severe): Chronic Evidenced By Suboptimal Energy Intake ( Severe),Weight Loss (Moderate) ,Physical Changes (Moderate) Clinical Problem Chronic Disease or Condition Related Malnutrition Etiology suspect severe protein-calorie malnutrition in the context of chronic disease and debility related to inadequate oral/energy intake Signs/Symptoms as evidenced by BMI 15.7, ~9.7 % unintentional weight loss in x 1 wk, PO meeting <50% estimated nutrition needs x 1 month 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 Fluid restriction per physician as indicated. Continue 120mL ensure plus HP 3 times per day w/ medpass. Continue ensure compact w/ breakfast, fortified pudding w / lunch and magic cup w/ dinner. Rec appetite stimulant to help encourage increased po intake at meals Lab / Micro Data 10/06/23 08:18 10/06/23 08:18 Physical Exam Const alert, oriented x3, no apparent distress and no limitations; Negative for average body habitus, healthy appearing or well nourished Constitutional Narrative: Cachectic, frail, elderly, white female, sitting up in the chair at the bedside,case management/social work at bedside, patient appears comfortable and nontoxic HEENT normocephalic, head/scalp atraumatic and hearing grossly normal bilaterally Resp normal respiratory effort, normal air movement, no retractions and no use of accessory muscles Auscultation: Negative for rales, rhonchi or wheezes Cardio regular rate, regular rhythm, S1 normal heart sound, S2 normal heart sound, no murmurs, no rub, no gallops and no clicks GI normal to inspection, nondistended, normoactive bowel sounds, soft to palpation and non-tender Extremity no clubbing, cyanosis or edema Skin No no wounds Neuro oriented x3, moves all extremities and no focal motor deficits Speech: speech normal Psych mental status grossly normal and affect normal Psych Narrative: Very pleasant, interacts appropriately Assessment & Plan Assessment/Plan (1) Fracture of femoral neck, closed: QUALIFIERS: Encounter type: initial encounter Laterality: left Qualified Code(s): S72.002A - Fracture of unspecified part of neck of left femur, initial encounter for closed fracture (2) Debility: (3) S/P hip hemiarthroplasty: PLAN: Plan Left femoral neck fracture status post left hip hemiarthroplasty -Postop day 8 -Continue scheduled Tylenol -Weightbearing as tolerated -Will need SNF at discharge and currently awaiting acceptance and improve assurance approval next-patient has been medically stable for discharge since 10/04/2023 -Continue occupational and physical therapy while hospitalized Generalized weakness/debility secondary to chronic illnesses and age -Continue PT/OT as noted above -SNF discharge pending Constipation -Resolved next-continue bowel regimen with scheduled MiraLAX and senna Severe malnutrition -Dietitian is following -Continue supplements Mild anemia -Appears to be stable -Will repeat CBC in a.m. for monitoring since patient is still hospitalized CKD stage IIIb -serum creatinine 1.0 on admission and stable -Avoid nephrotoxins as able -Repeat BMP in a.m. History of ICH with subsequent severe photosensitivity -This was related to a fall and has been within the last 2 months -Monitor closely with anticoagulation for DVT prophylaxis CAD/HTN/HPL -Restart Entresto and Farxiga at discharge next-continue home aspirin next- continue home Lasix -Continue home Toprol Ischemic cardiomyopathy/HFrEF -Currently compensated with no signs of decompensation -Continue home Lasix -Will recommend outpatient cardiology follow-up after discharge here as she is recently moved back to the area History of cardiac arrhythmia -History of PPM/AICD -continue home amiodarone OA -As needed pain medication as ordered DVT prophylaxis -Eliquis 2.5 mg daily for 3 weeks then stop CODE STATUS -full code Disposition: -Plan is for discharge to [facility] when patient is excepted. Patient's been medically ready for discharge since 10/04/2023. Charges/Coding Visit Charges Inpatient E&M: 68932 Subs Hosp L2 10/08/23 1712 <Electronically signed by Tammi Frost DO> Cosigner Signature (if applicable): CC: ~ Signed [facility] Work Phone: 1(305) 143-453305-06-2024 Discharge summary Author Tammi Frost [facility] October 08, 2023 10:21am Note Date/Time October 08, 2023 10:21a m [facility] Medical Records Department [address] [place] [address] Transfer to [facility] Care MR#: [id number] Acct: [id number] Name: SHERRIE LOZANO Rep #:[id number] : 1935 88 From: Tammi Frost DO PCP: Dr. Viet Lovett MD Status:ADM I N Certification of patient admission REQUIRED AT TIME OF ADMISSION. I CERTIFY THAT POST-HOSPITAL ECF SERVICES ARE REQUIRED TO BE GIVEN ON AN IN-PATIENT BASIS BECAUSE OF THE ABOVE NAMED PATIENT'S NEED FOR PENITENTIARY CARE ON A CONTINUING BASIS FOR THE CONDITION(S) FOR WHICH HE/SHE WAS RECEIVING IN-PATIENT HOSPITAL SERVICES PRIOR TO HIS/HER TRANSFER TO THE [facility]. 10/08/23 1021<Electronically signed by Tammi Frost DO> Diet Diet Order/Speech Therapy: 10/02/23 12:06 Diet: Sodium Restricted (MOD) Food consistency:: Regular Liquid Consistency:: Regular/Thin Type of Dietary Supplement:: Ensure Compact w/ brkfst Diet Comments: fortified pudding w/ lunch; magic cup w/ dinner Routine Orders/Code Status Suppository Frequency: Daily PRN O2 Frequency: PRN Keep PO Greater than or Equal to (%): 89 Routine Lab Work: CBC (1 week) and BMP (1 week) Code Status: Full Code Wound(s) left arm: Wound Type: Skin Tear left hip: Wound Type: Surgical Incision Suggestions for Active Care Change Position every (hours): 2 Therapies Weight Bearing: Weight bearing as tolerated Extremity Affected:: Left Lower Physical Therapy: Eval and Treat Occupational Therapy: Eval and Treat Problem/Diagnosis (1) Fracture of femoral neck, closed: Status: Acute Code(s): S72.009A - Fracture of unspecified part of neck of unspecified femur, initial encounter for closed fracture (2) Debility: Status: Acute Code(s): R53.81 - Other malaise Allergies/Procedures Done in Hospital Allergies [id number]-[id number] Reductase Inhibitor Adverse Reaction (Mild, Verified 09/29/23 12:42) muscle aches Procedures: - (Chest x-ray/hip and pelvic x-rays) Type of Care/Length of Stay Estimated LOS: Convalescent Care Less Than 30 days Type of Care Needed: Skilled Rehab Potential: Good Prognosis: Good Additional Orders/Day of Discharge Day of Discharge: 10/08/23 Dietary and Speech Recommendations Dietitian Recommendations/Changes: Will change diet to sodium-restricted, liberalize as needed. Fluid restriction per physician as indicated. Will add 120mL ensure plus HP 3 times per day w/ medpass. Will add ensure compact w/ breakfast, fortified pudding w/ lunch and magic cup w/ dinner. Follow Up Care Please Follow Up With: Amol Yoder DO When: 1.5 weeks Discharge Plan Admission Admit Date/Time: 09/29/23 14:27 Attending Provider: Tammi Frost Primary Care Provider: Viet Lovett Consulting Providers: Mehdi Crespo; Amol Yoder; Anson Waite; Joon Yuen Instructions Patient Instructions: Bruises (Contusions), ED Skin Tear (Skin Avulsion) Discharge Orders/Prescriptions Prescriptions: No Action amiodarone 100 mg tablet 100 mg PO DAILY aspirin 81 mg tablet,delayed release (DR/EC) 81 mg PO DAILY Entresto 24-26 mg tablet 1 tab PO BID dapagliflozin propanediol [Farxiga] 10 mg tablet 10 mg PO DAILY furosemide 40 mg tablet 40 mg PO DAILY magnesium sulfate 100 mg capsule 400 mg PO DAILY metoprolol succinate 25 mg tablet extended release 24 hr 12.5 mg PO DAILY Referrals / Follow Up: Viet Lovett MD [Primary Care Provider] - 3-5 Days NOT,DEFINED [Non-Staff] - (1) Fracture of femoral neck, closed Qualifiers: Encounter type: initial encounter Laterality: left Qualified Code(s): S72.002A - Fracture of unspecified part of neck of left femur, initial encounterfor closed fracture 10/08/23 1021 <Electronically signed by Tammi Frost DO> Cosigner Signature (if applicable): CC: Dr. Joon Yuen DO; Dr. Mehdi Crespo DO; Dr. Amol Yoder DO; Dr. Anson Waite MD; Dr. Viet Lovett MD ~ [facility] Work Phone: 1(382) 433-121205-05-2024 Progress note Author Joon Yuen [facility] May 5th, 2024 12:45pm Note Date/Time October 07, 2023 11:16a [facility] Medical Records Department [address] [place] [address] Progress Note - Hospitalist 10/07/23 1115 MR#: [id number] Acct: [id number] Name: SHERRIE LOZANO Rep #:[id number] : 1935 88 From: Joon garcía DO PCP: Dr. Viet Lovett MD Status:ADM I N Location: [place] [id number] Reason for Visit Reason for Visit: Diagnoses Other malaise (09/29/23) Contusion of lower back and pelvis, initial encounter (09/29/23) Laceration without foreign body of left elbow, initial encounter (09/29/23) Fracture of unspecified part of neck of left femur, initial encounter for closedfracture (09/29/23) Unspecified fall, initial encounter (09/29/23) Personal history of other diseases of the circulatory system (09/29/23) Presence of automatic (implantable) cardiac defibrillator (09/29/23) Presence of unspecified artificial hip joint (09/29/23) Subjective Subjective No acute events or night. Patient seen at bedside this morning. Sitting up comfortably bedside chair, conversing normally, in no acute distress. Appears similar to previous days. No new concerns this morning. Objective Data Objective Data Vital Signs: Vital Signs Temp Pulse Resp BP Pulse Ox O2 Del Method O2 Flow Rate 98.1 F 97 16 141/61 H 97 Room Air 2 10/07/23 09:10 10/07/23 09:10 10/07/23 09:10 10/07/23 09:10 10/07/23 09:10 10/07/23 09:10 10/01/23 01:28 Oxygen Flow Rate (L/min) 2 Oxygen Delivery Method Room Air Weight: 40.3 kg Body Mass Index (BMI) 15.7 Intake & Output: Intake and Output for Last 24 Hours 10/05/23 10/06/23 10/07/23 23:59 23:59 23:59 Intake Total 500 / 750 500 / 500 Balance 500 / 750 500 / 500 Medical Nutrition Assessment Dietitian: Malnutrition Criteria Met Start: 09/30/23 15:18 Freq: Status: Active Protocol: Document 04/30/24 12:07 RMA (Rec: 10/02/23 12:08 RMA [id number]) Nutrition Malnutrition Evidence of Malnutrition Exists Yes Malnutrition (severe): Chronic Evidenced By Suboptimal Energy Intake ( Severe),Weight Loss (Moderate) ,Physical Changes (Moderate) Clinical Problem Chronic Disease or Condition Related Malnutrition Etiology suspect severe protein-calorie malnutrition in the context of chronic disease and debility related to inadequate oral/energy intake Signs/Symptoms as evidenced by BMI 17.4, ~5-6 % unintentional weight loss in undetermined timeframe, PO meeting <50% estimated nutrition needs x 1 month and moderate to severe muscle wasting/fat depletion in the clavicle, arms and legs Status Active Problem Recommendation Dietitian Recommendations/Changes Will change diet to sodium- restricted, liberalize as needed. Fluid restriction per physician as indicated. Will add 120mL ensure plus HP 3 times per day w/ medpass. Will add ensure compact w/ breakfast, fortified pudding w / lunch and magic cup w/ dinner. Lab / Micro Data 10/06/23 08:18 10/06/23 08:18 Physical Exam Const alert, oriented x3 and no apparent distress Constitutional Narrative: Elderly female, thin, sitting comfortably in bedside chair, conversing normally,in no acute distress. General Appearance: cooperative and comfortable HEENT normocephalic, head/scalp atraumatic, hearing grossly normal bilaterally and nasal mucous membranes and turbinates normal Eyes EOMs intact bilaterally and conjunctivae normal Eyes Narrative: Legally blind. Neck full ROM Chest inspection of chest normal Resp normal respiratory effort, normal air movement, no use of accessory muscles and clear to auscultation bilaterally Cardio regular rate, regular rhythm, no murmurs and peripheral pulses 2+ throughout GI normal to inspection, nondistended, normoactive bowel sounds, soft to palpation,non-tender and non-distended Back/Spine normal ROM Extremity Extremity Narrative: S/p left hip hemiarthroplasty. Left hip surgery site with no gross abnormalities. Skin no rashes or lesions noted Neuro moves all extremities and no focal motor deficits Speech: speech normal Psych mental status grossly normal Assessment & Plan Assessment/Plan (1) Fracture of femoral neck, closed: QUALIFIERS: Encounter type: initial encounter Laterality: left Qualified Code(s): S72.002A - Fracture of unspecified part of neck of left femur, initial encounter for closed fracture (2) Debility: PLAN: Plan Patient is an 88-year-old female who presented [facility] ED on 09/29/2023 after a fall with left hip pain. 1. Left femoral neck fracture due to mechanical fall, acute on chronic debility ? Orthopedics followed. S/p left hip hemiarthroplasty on 09/29. Patient tolerated procedure well, no postoperative complications to this point. DVT prophylaxis with Eliquis 2.5 mg twice daily. Pain management with scheduled Tylenol, oxycodone as needed. PT/OT/case management following. Lives in assisted living side [facility], planning for discharge to SNF side there, has been complicated by insurance issues. Medically ready for discharge on 10/03, awaiting pre-CERT. 2. Mild constipation, improved ? Noted postoperatively. Improved with scheduled bowel regimen. Continue MiraLAX and senna daily. 3. Severe protein calorie malnutrition ? Met criteria on admission, see nutrition therapy note for further details. Continue Ensure 3 times daily with diet. 4. Mild anemia, stable ? Hemoglobin 14.8 on admit, decreased to 12.8 on hospital day 2 after IV fluid administration. No previous baseline available in our records. Hemoglobin dropped from 12.8 to 11.3 after the operation as noted above, remains stable around 11. No need to monitor further CBCs at this time. Chronic medical conditions: ? CKD stage IIIb: Creatinine 1.00 on admit, at baseline. Has remained at baseline during hospitalization. ? History of ICH with subsequent severe photosensitivity ? History of CAD with stenting, hypertension, hyperlipidemia, CHF: Holding home Entresto and Farxiga. Continue home aspirin, Lasix, Toprol. ? History of arrhythmia s/p PPM/AICD placement: Continue home amiodarone. ? OA: Treatment as above. DVT prophylaxis: Eliquis CODE STATUS: Full code, verified Expected disposition: SNF, medically ready for discharge on 10/03, awaiting pre- CERT Total clinical time spent by myself addressing the patient's medical issues, reviewing all the data, and collaborating with patient's care team: 25 minutes. Charges/Coding Visit Charges Inpatient E&M: 53915 Subs Hosp L1 10/07/23 7438 <Electronically signed by Joon Yuen DO> Cosigner Signature (if applicable): CC: ~ Signed [facility] Work Phone: 1(421) 164-727505-04-2024 Progress note Author Joon eun [facility] October 06, 2023 11:01am Note Date/Time October 06, 2023 9:30am [facility] Medical Records Department [address] [place] [address] Progress Note - Hospitalist 10/06/23 0930 MR#: [id number] Acct: [id number] Name: SHERRIE LOZANO Rep #:[id number] : 1935 88 From: Joon garcía DO PCP: Dr. Viet Lovett MD Status:ADM I N Location: [place] [id number] Reason for Visit Reason for Visit: Diagnoses Other malaise (09/29/23) Contusion of lower back and pelvis, initial encounter (09/29/23) Laceration without foreign body of left elbow, initial encounter (09/29/23) Fracture of unspecified part of neck of left femur, initial encounter for closedfracture (09/29/23) Unspecified fall, initial encounter (09/29/23) Personal history of other diseases of the circulatory system (09/29/23) Presence of automatic (implantable) cardiac defibrillator (09/29/23) Presence of unspecified artificial hip joint (09/29/23) Subjective Subjective No acute events overnight. Patient seen at bedside this morning. Sitting up comfortably in bedside chair, conversing normally, in no acute distress. She reports only mild left hip pain with movement at this time, pain has generally been well-controlled with pain medications. She denies any other acute concernsthis morning. Objective Data Objective Data Vital Signs: Vital Signs Temp Pulse Resp BP Pulse Ox O2 Del Method O2 Flow Rate 98.1 F 70 16 149/54 H 94 Room Air 2 10/06/23 08:50 10/06/23 08:50 10/06/23 08:50 10/06/23 08:50 10/06/23 08:50 10/06/23 08:50 10/01/23 01:28 Oxygen Flow Rate (L/min) 2 Oxygen Delivery Method Room Air Weight: 36.429 kg Body Mass Index (BMI) 14.2 Intake & Output: Intake and Output for Last 24 Hours 10/04/23 10/05/23 10/06/23 23:59 23:59 23:59 Intake Total 700 / 700 Balance 700 / 700 Medical Nutrition Assessment Dietitian: Malnutrition Criteria Met Start: 09/30/23 15:18 Freq: Status: Active Protocol: Document 10/02/23 12:07 RMA (Rec: 10/02/23 12:08 RMA [id number]) Nutrition Malnutrition Evidence of Malnutrition Exists Yes Malnutrition (severe): Chronic Evidenced By Suboptimal Energy Intake ( Severe),Weight Loss (Moderate) ,Physical Changes (Moderate) Clinical Problem Chronic Disease or Condition Related Malnutrition Etiology suspect severe protein-calorie malnutrition in the context of chronic disease and debility related to inadequate oral/energy intake Signs/Symptoms as evidenced by BMI 17.4, ~5-6 % unintentional weight loss in undetermined timeframe, PO meeting <50% estimated nutrition needs x 1 month and moderate to severe muscle wasting/fat depletion in the clavicle, arms and legs Status Active Problem Recommendation Dietitian Recommendations/Changes Will change diet to sodium- restricted, liberalize as needed. Fluid restriction per physician as indicated. Will add 120mL ensure plus HP 3 times per day w/ medpass. Will add ensure compact w/ breakfast, fortified pudding w / lunch and magic cup w/ dinner. Lab / Micro Data 10/06/23 08:18 10/06/23 08:18 Labs: Laboratory Results - last 24 hr 10/06/23 08:18: WBC 5.8, RBC 3.53 L, Hgb 10.7 L, Hct 33.3 L, MCV 94.3, MCH 30.3,MCHC 32.1, RDW Std Deviation 56.2 H, RDW Coeff of Marie 16.2 H, Plt Count 339, MPV9.8, Sodium 141, Potassium 4.2, Chloride 109 H, Carbon Dioxide 30.0, Anion Gap 2L, BUN 41 H, Creatinine 0.97, Estim Creat Clear Calc 23.50, Est GFR (MDRD) Af Amer 70, Est GFR (MDRD) Non-Af 58 L, BUN/Creatinine Ratio 42.4 H, Glucose 97, Calcium 8.7 Physical Exam Const alert, oriented x3 and no apparent distress Constitutional Narrative: Elderly female, thin, sitting comfortably in bedside chair, conversing normally,in no acute distress. General Appearance: cooperative and comfortable HEENT normocephalic, head/scalp atraumatic, hearing grossly normal bilaterally and nasal mucous membranes and turbinates normal Eyes EOMs intact bilaterally and conjunctivae normal Eyes Narrative: Legally blind. Neck full ROM Chest inspection of chest normal Resp normal respiratory effort, normal air movement, no use of accessory muscles and clear to auscultation bilaterally Cardio regular rate, regular rhythm, no murmurs and peripheral pulses 2+ throughout GI normal to inspection, nondistended, normoactive bowel sounds, soft to palpation,non-tender and non-distended Back/Spine normal ROM Extremity Extremity Narrative: S/p left hip hemiarthroplasty. Left hip surgery site with no gross abnormalities. Skin no rashes or lesions noted Neuro moves all extremities and no focal motor deficits Speech: speech normal Psych mental status grossly normal Assessment & Plan Assessment/Plan (1) Fracture of femoral neck, closed: QUALIFIERS: Encounter type: initial encounter Laterality: left Qualified Code(s): S72.002A - Fracture of unspecified part of neck of left femur, initial encounter for closed fracture (2) Debility: PLAN: Plan Patient is an 88-year-old female who presented [facility] ED on 09/29/2023 after a fall with left hip pain. 1. Left femoral neck fracture due to mechanical fall, acute on chronic debility ? Orthopedics following. S/p left hip hemiarthroplasty on 09/29. Patient tolerated procedure well, no postoperative complications to this point. DVT prophylaxis with Eliquis 2.5 mg twice daily. Pain management with scheduled Tylenol, oxycodone as needed. PT/OT/case management following. Lives in assisted living side [facility], planning for discharge to [facility] side there, has been complicated by insurance issues. Medically ready for discharge on 10/03, awaiting pre-CERT. 2. Mild constipation, improving ? Noted postoperatively. Improved with scheduled bowel regimen. Continue MiraLAX and senna daily. 3. Severe protein calorie malnutrition ? Met criteria on admission, see nutrition therapy note for further details. Continue Ensure 3 times daily with diet. 4. Mild anemia ? Hemoglobin 14.8 on admit, decreased to 12.8 on hospital day 2 after IV fluid administration. No previous baseline available in our records. Hemoglobin dropped from 12.8 to 11.3 after the operation as noted above, remains stable around 11. No need to monitor further CBCs at this time. Chronic medical conditions: ? CKD stage IIIb: Creatinine 1.00 on admit, at baseline. Has remained at baseline during hospitalization. ? History of ICH with subsequent severe photosensitivity ? History of CAD with stenting, hypertension, hyperlipidemia, CHF: Holding home Entresto and Farxiga. Continue home aspirin, Lasix, Toprol. ? History of arrhythmia s/p PPM/AICD placement: Continue home amiodarone. ? OA: Treatment as above. DVT prophylaxis: Eliquis CODE STATUS: Full code, verified Expected disposition: SNF, medically ready for discharge on 10/03, awaiting pre- CERT Total clinical time spent by myself addressing the patient's medical issues, reviewing all the data, and collaborating with patient's care team: 25 minutes. Charges/Coding Visit Charges Inpatient E&M: 77768 Subs Hosp L1 10/06/23 1101 <Electronically signed by Joon uYen DO> Cosigner Signature (if applicable): CC: ~ Signed [facility] Work Phone: 1(906) 952-936905-03-2024 Progress note Author [facility] October 05, 2023 1:37pm Note Date/Time October 05, 2023 1:37pm [facility] Medical Records Department [address] [place] [address] Progress Note - Hospitalist 10/05/23 1335 MR#: [id number] Acct: [id number] Name: SHERRIE LOZANO Rep #:[id number] : 1935 88 From: Joon garcía DO PCP: Dr. Viet Lovett MD Status:ADM I N Location: [place] [id number] Reason for Visit Reason for Visit: Diagnoses Other malaise (09/29/23) Contusion of lower back and pelvis, initial encounter (09/29/23) Laceration without foreign body of left elbow, initial encounter (09/29/23) Fracture of unspecified part of neck of left femur, initial encounter for closedfracture (09/29/23) Unspecified fall, initial encounter (09/29/23) Personal history of other diseases of the circulatory system (09/29/23) Presence of automatic (implantable) cardiac defibrillator (09/29/23) Presence of unspecified artificial hip joint (09/29/23) Subjective Subjective No acute events overnight. Seen at bedside this morning, was up working with physical therapy when I saw her. Denied any new concerns today. Objective Data Objective Data Vital Signs: Vital Signs Temp Pulse Resp BP Pulse Ox O2 Del Method O2 Flow Rate 97.8 F 70 16 126/44 H 99 Room Air 2 10/05/23 09:51 10/05/23 09:51 10/05/23 09:51 10/05/23 09:51 10/05/23 09:51 10/05/23 09:52 10/01/23 01:28 Oxygen Flow Rate (L/min) 2 Oxygen Delivery Method Room Air Weight: 44.1 kg Body Mass Index (BMI) 17.2 Intake & Output: Intake and Output for Last 24 Hours 10/03/23 10/04/23 10/05/23 23:59 23:59 23:59 Intake Total 1150 / 1150 700 / 700 Balance 1150 / 1150 700 / 700 Medical Nutrition Assessment Dietitian: Malnutrition Criteria Met Start: 09/30/23 15:18 Freq: Status: Active Protocol: Document 10/02/23 12:07 RMA (Rec: 10/02/23 12:08 RMA [id number]) Nutrition Malnutrition Evidence of Malnutrition Exists Yes Malnutrition (severe): Chronic Evidenced By Suboptimal Energy Intake ( Severe),Weight Loss (Moderate) ,Physical Changes (Moderate) Clinical Problem Chronic Disease or Condition Related Malnutrition Etiology suspect severe protein-calorie malnutrition in the context of chronic disease and debility related to inadequate oral/energy intake Signs/Symptoms as evidenced by BMI 17.4, ~5-6 % unintentional weight loss in undetermined timeframe, PO meeting <50% estimated nutrition needs x 1 month and moderate to severe muscle wasting/fat depletion in the clavicle, arms and legs Status Active Problem Recommendation Dietitian Recommendations/Changes Will change diet to sodium- restricted, liberalize as needed. Fluid restriction per physician as indicated. Will add 120mL ensure plus HP 3 times per day w/ medpass. Will add ensure compact w/ breakfast, fortified pudding w / lunch and magic cup w/ dinner. Lab / Micro Data 10/04/23 09:15 10/02/23 07:20 Physical Exam Const alert, oriented x3 and no apparent distress Constitutional Narrative: Elderly female, thin, otherwise standing comfortably at edge of bed, conversing normally, in no acute distress. General Appearance: cooperative and comfortable HEENT normocephalic, head/scalp atraumatic, hearing grossly normal bilaterally and nasal mucous membranes and turbinates normal Eyes EOMs intact bilaterally and conjunctivae normal Eyes Narrative: Legally blind. Neck full ROM Chest inspection of chest normal Resp normal respiratory effort, normal air movement, no use of accessory muscles and clear to auscultation bilaterally Cardio regular rate, regular rhythm, no murmurs and peripheral pulses 2+ throughout GI normal to inspection, nondistended, normoactive bowel sounds, soft to palpation,non-tender and non-distended Back/Spine normal ROM Extremity Extremity Narrative: S/p left hip hemiarthroplasty. Left hip surgery site with no gross abnormalities. Skin no rashes or lesions noted Neuro moves all extremities and no focal motor deficits Speech: speech normal Psych mental status grossly normal Assessment & Plan Assessment/Plan (1) Fracture of femoral neck, closed: QUALIFIERS: Encounter type: initial encounter Laterality: left Qualified Code(s): S72.002A - Fracture of unspecified part of neck of left femur, initial encounter for closed fracture (2) Debility: PLAN: Plan Patient is an 88-year-old female who presented [facility] ED on 09/29/2023 after a fall with left hip pain. 1. Left femoral neck fracture due to mechanical fall, acute on chronic debility ? Orthopedics following. S/p left hip hemiarthroplasty on 09/29. Patient tolerated procedure well, no postoperative complications to this point. DVT prophylaxis with Eliquis 2.5 mg twice daily. Pain management with scheduled Tylenol, oxycodone as needed. PT/OT/case management following. Lives in assisted living side [facility], planning for discharge to [facility] side there. Medically ready for discharge on 10/03, awaiting pre-CERT. 2. Mild constipation, improving ? Noted postoperatively. Improved with scheduled bowel regimen. Continue MiraLAX and senna daily. 3. Severe protein calorie malnutrition ? Met criteria on admission, see nutrition therapy note for further details. Continue Ensure 3 times daily with diet. 4. Mild anemia ? Hemoglobin 14.8 on admit, decreased to 12.8 on hospital day 2 after IV fluid administration. No previous baseline available in our records. Hemoglobin dropped from 12.8 to 11.3 after the operation as noted above, remains stable around 11. No need to monitor further CBCs at this time. Chronic medical conditions: ? CKD stage IIIb: Creatinine 1.00 on admit, at baseline. Has remained at baseline during hospitalization. ? History of ICH with subsequent severe photosensitivity ? History of CAD with stenting, hypertension, hyperlipidemia, CHF: Holding home Entresto and Farxiga. Continue home aspirin, Lasix, Toprol. ? History of arrhythmia s/p PPM/AICD placement: Continue home amiodarone. ? OA: Treatment as above. DVT prophylaxis: Eliquis CODE STATUS: Full code, verified Expected disposition: SNF, medically ready for discharge on 10/03, awaiting pre- CERT Total clinical time spent by myself addressing the patient's medical issues, reviewing all the data, and collaborating with patient's care team: 25 minutes. Charges/Coding Visit Charges Inpatient E&M: 80579 Subs Hosp L1 10/05/23 1337 <Electronically signed by Joon Yuen DO> Cosigner Signature (if applicable): CC: ~ Signed [facility] Work Phone: 1(366) 401-206605-02-2024 Progress note Author Joon [facility] October 04, 2023 6:56pm Note Date/Time October 04, 2023 1:47pm [facility] Medical Records Department [address] [place] [address] Progress Note - Hospitalist 10/04/23 1347 MR#: [id number] Acct: [id number] Name: SHERRIE LOZANO Rep #:[id number] : 1935 88 From: Joon garcía DO PCP: Dr. Viet Lovett MD Status:ADM I N Location: [place] [address] Reason for Visit Reason for Visit: Diagnoses Contusion of lower back and pelvis, initial encounter (09/29/23) Laceration without foreign body of left elbow, initial encounter (09/29/23) Fracture of unspecified part of neck of left femur, initial encounter for closedfracture (09/29/23) Unspecified fall, initial encounter (09/29/23) Personal history of other diseases of the circulatory system (09/29/23) Presence of automatic (implantable) cardiac defibrillator (09/29/23) Presence of unspecified artificial hip joint (09/29/23) Subjective Subjective No acute events overnight. Patient seen at bedside this morning. Sitting up comfortably in bedside chair, conversing normally, in no acute distress. Spoke with patient's nephew over the phone at the bedside. His primary concern is making sure patient has had appropriate discharge plan in place. Patient currently resides with her at [facility] in the assisted living side. Current plan is for patient to discharge to nursing home side of [facility] once the insurance issues have been worked out. No other acute concerns this morning. Objective Data Objective Data Vital Signs: Vital Signs Temp Pulse Resp BP Pulse Ox O2 Del Method O2 Flow Rate 98.2 F 72 18 104/45 L 100 Room Air 2 10/04/23 10:10/04/23 11:19 10/04/23 10:10/04/23 11:10/04/23 10:10/04/23 10:10/01/23 01:28 Oxygen Flow Rate (L/min) 2 Oxygen Delivery Method Room Air Weight: 44 kg Body Mass Index (BMI) 17.2 Intake & Output: Intake and Output for Last 24 Hours 10/02/23 10/03/23 10/04/23 23:59 23:59 23:59 Intake Total 400 / 400 1150 / 1150 Balance 400 / 400 1150 / 1150 Medical Nutrition Assessment Dietitian: Malnutrition Criteria Met Start: 09/30/23 15:18 Freq: Status: Active Protocol: Document 10/02/23 12:07 RMA (Rec: 10/02/23 12:08 RMA [id number]) Nutrition Malnutrition Evidence of Malnutrition Exists Yes Malnutrition (severe): Chronic Evidenced By Suboptimal Energy Intake ( Severe),Weight Loss (Moderate) ,Physical Changes (Moderate) Clinical Problem Chronic Disease or Condition Related Malnutrition Etiology suspect severe protein-calorie malnutrition in the context of chronic disease and debility related to inadequate oral/energy intake Signs/Symptoms as evidenced by BMI 17.4, ~5-6 % unintentional weight loss in undetermined timeframe, PO meeting <50% estimated nutrition needs x 1 month and moderate to severe muscle wasting/fat depletion in the clavicle, arms and legs Status Active Problem Recommendation Dietitian Recommendations/Changes Will change diet to sodium- restricted, liberalize as needed. Fluid restriction per physician as indicated. Will add 120mL ensure plus HP 3 times per day w/ medpass. Will add ensure compact w/ breakfast, fortified pudding w / lunch and magic cup w/ dinner. Lab / Micro Data 10/04/23 09:15 10/02/23 07:20 Labs: Laboratory Results - last 24 hr 10/04/23 09:15: WBC 6.6, RBC 3.63 L, Hgb 11.0 L, Hct 34.2 L, MCV 94.2, MCH 30.3,MCHC 32.2, RDW Std Deviation 57.4 H, RDW Coeff of Marie 16.5 H, Plt Count 289, MPV9.8 Physical Exam Const alert, oriented x3 and no apparent distress Constitutional Narrative: Elderly female, thin, otherwise sitting up comfortably in bedside chair, conversing normally, in no acute distress. General Appearance: cooperative and comfortable HEENT normocephalic, head/scalp atraumatic, hearing grossly normal bilaterally and nasal mucous membranes and turbinates normal Eyes Eyes Narrative: Wearing sunglasses during encounter due to photosensitivity. Neck full ROM Chest inspection of chest normal Resp normal respiratory effort, normal air movement, no use of accessory muscles and clear to auscultation bilaterally Cardio regular rate, regular rhythm, no murmurs and peripheral pulses 2+ throughout GI normal to inspection, nondistended, normoactive bowel sounds, soft to palpation,non-tender and non-distended Back/Spine normal ROM Extremity Extremity Narrative: S/p left hip hemiarthroplasty. Surgical dressing in place, appears clean and dry. Skin no rashes or lesions noted Neuro moves all extremities and no focal motor deficits Speech: speech normal Psych mental status grossly normal Assessment & Plan Assessment/Plan (1) Fracture of femoral neck, closed: QUALIFIERS: Encounter type: initial encounter Laterality: left Qualified Code(s): S72.002A - Fracture of unspecified part of neck of left femur, initial encounter for closed fracture (2) Debility: PLAN: Plan Patient is an 88-year-old female who presented [facility] ED on 09/29/2023 after a fall with left hip pain. 1. Left femoral neck fracture due to mechanical fall, acute on chronic debility ? Orthopedics following. S/p left hip hemiarthroplasty on 09/29. Patient tolerated procedure well, no postoperative complications to this point. DVT prophylaxis with Eliquis 2.5 mg twice daily. Pain management with scheduled Tylenol, oxycodone as needed. PT/OT/case management following. Lives in assisted living side of [facility], planning for discharge to SNF side there. Medically ready for discharge on 10/03, awaiting pre-CERT. 2. Mild constipation, improving ? Noted postoperatively. Improved with scheduled bowel regimen. Continue MiraLAX and senna daily. 3. Severe protein calorie malnutrition ? Met criteria on admission, see nutrition therapy note for further details. Continue Ensure 3 times daily with diet. 4. Mild anemia ? Hemoglobin 14.8 on admit, decreased to 12.8 on hospital day 2 after IV fluid administration. No previous baseline available in our records. Hemoglobin dropped from 12.8 to 11.3 after the operation as noted above, remains stable around 11. No need to monitor further CBCs at this time. Chronic medical conditions: ? CKD stage IIIb: Creatinine 1.00 on admit, at baseline. Has remained at baseline during hospitalization. ? History of ICH with subsequent severe photosensitivity ? History of CAD with stenting, hypertension, hyperlipidemia, CHF: Holding home Entresto and Farxiga. Continue home aspirin, Lasix, Toprol. ? History of arrhythmia s/p PPM/AICD placement: Continue home amiodarone. ? OA: Treatment as above. DVT prophylaxis: Eliquis CODE STATUS: Full code, verified Expected disposition: SNF, medically ready for discharge on 10/03, awaiting pre- CERT Total clinical time spent by myself addressing the patient's medical issues, reviewing all the data, and collaborating with patient's care team: 35 minutes. Charges/Coding Visit Charges Inpatient E&M: 26770 Subs Hosp L2 10/04/23 3967 <Electronically signed by Joon Yuen DO> Cosigner Signature (if applicable): CC: ~ Signed [facility] Work Phone: 1(838) 727-334305-01-2024 Progress note Author Anson Waite [facility] October 03, 2023 1:28pm Note Date/Time October 03, 2023 1:20pm [facility] Medical Records Department [address] [place] [address] Progress Note - Hospitalist 10/03/23 1315 MR#: [id number] Acct: [id number] Name: SHERRIE LOZANO Rep #:[id number] : 1935 88 From: Anson Pritchard PCP: Dr. Viet Lovett MD Status:ADM I N Location: [place] [address] Reason for Visit Reason for Visit: Diagnoses Contusion of lower back and pelvis, initial encounter (09/29/23) Laceration without foreign body of left elbow, initial encounter (09/29/23) Fracture of unspecified part of neck of left femur, initial encounter for closedfracture (09/29/23) Unspecified fall, initial encounter (09/29/23) Personal history of other diseases of the circulatory system (09/29/23) Presence of automatic (implantable) cardiac defibrillator (09/29/23) Presence of unspecified artificial hip joint (09/29/23) Objective Data Objective Data Vital Signs: Vital Signs Temp Pulse Resp BP Pulse Ox O2 Del Method O2 Flow Rate 99.3 F H 71 18 153/47 H 92 Room Air 2 10/03/23 09:22 10/03/23 09:30 10/03/23 09:22 10/03/23 09:22 10/03/23 09:22 10/03/23 09:22 10/01/23 01:28 Oxygen Flow Rate (L/min) 2 Oxygen Delivery Method Room Air Weight: 97 lb 3.582 oz Body Mass Index (BMI) 17.2 Intake & Output: Intake and Output for Last 24 Hours 10/01/23 10/02/23 10/03/23 23:59 23:59 23:59 Intake Total 2200 / 2200 400 / 400 300 / 300 Output Total 300 / 300 Balance 1900 / 1900 400 / 400 300 / 300 Medical Nutrition Assessment Dietitian: Malnutrition Criteria Met Start: 09/30/23 15:18 Freq: Status: Active Protocol: Document 10/02/23 12:07 RMA (Rec: 10/02/23 12:08 RMA [id number]) Nutrition Malnutrition Evidence of Malnutrition Exists Yes Malnutrition (severe): Chronic Evidenced By Suboptimal Energy Intake ( Severe),Weight Loss (Moderate) ,Physical Changes (Moderate) Clinical Problem Chronic Disease or Condition Related Malnutrition Etiology suspect severe protein-calorie malnutrition in the context of chronic disease and debility related to inadequate oral/energy intake Signs/Symptoms as evidenced by BMI 17.4, ~5-6 % unintentional weight loss in undetermined timeframe, PO meeting <50% estimated nutrition needs x 1 month and moderate to severe muscle wasting/fat depletion in the clavicle, arms and legs Status Active Problem Recommendation Dietitian Recommendations/Changes Will change diet to sodium- restricted, liberalize as needed. Fluid restriction per physician as indicated. Will add 120mL ensure plus HP 3 times per day w/ medpass. Will add ensure compact w/ breakfast, fortified pudding w / lunch and magic cup w/ dinner. Lab / Micro Data 10/02/23 07:20 10/02/23 07:20 Physical Exam Narrative Seen and examined. Patient is postop day 3. Had surgery on 09/30/2023. Patient voiding urine. Patient had bowel movement in the evening of surgery. Did not had bowel movement since then. Last BM documented on chart 09/28. Physical exam General: Alert, Oriented x3, Cooperative HEENT: Atraumatic, PERRLA, EOMI, Normocephalic. Photosensitivity Oral: Oral mucosa dry. No Gingival or Mucosal Lesions/ Ulcerations Neck: Supple, No JVD, Negative Carotid Bruits Chest wall/Lungs: Air entry diminished in bilateral lung bases. No crepitation/rhonchi Cardiovascular: Regular rate, Regular Rhythm, Normal S1, Normal S2, systolic murmur LLSB. Abdomen: Bowel Sounds Present, Soft, Non Tender, Non-Distended : No dysuria. No renal angle tenderness. No suprapubic tenderness. Extremities: No edema, Capillary Refill Less than 3 Seconds Skin: Left pelvic contusion and Left lateral elbow, 2 skin tears. No active bleeding Musculoskeletal: Status post left hip hemiarthroplasty. Surgical dressing is dry. Up and out of bed. Surgical dressing dry. Neurological: Cranial nerves II-XII grossly intact, DTR 2+/4. No acute focal neurological deficit. Psych/Mental Status: Flat affect. Mild cognitive deficits. Assessment & Plan Assessment/Plan (1) Fracture of femoral neck, left, closed: QUALIFIERS: Encounter type: initial encounter Qualified Code(s): S72.002A - Fracture of unspecified part of neck of left femur, initial encounterfor closed fracture (2) Contusion of pelvic region: QUALIFIERS: Encounter type: initial encounter Qualified Code(s): S30.0XXA - Contusion of lower back and pelvis, initial encounter (3) ISTAP type 3 skin tear of left elbow: (4) Presence of combination internal cardiac defibrillator (ICD) and pacemaker: PLAN: Plan 88-year-old female was admitted to [facility] floor after she lost her balance, left knee buckled and gave out while using walker to ambulate resulting in mechanical fall on left hip elbow and forearm. She was found left hip fracture on imaging 1. Left Femoral Neck Fracture, impacted with mild displacement due to mechanical Fall with pelvic contusion and Left lateral elbow skin tears x 2 - Admit to general medical floor. Has Drake catheter. Give Tylenol prn for [id number] (level 1-5/10) pain or fever. Give Morphine IV prn for severe (level 6-10/10) pain. Give Flexeril 5 mg PO TID prn for muscle spasms. Hip andpelvis x-ray directly reviewed. Left humeral neck fracture with impaction with mild displacement 0.7 cm. Normal left acetabulum. 09/29: Perioperative surgical risk calculated. Patient within average risk of serious complication, any complication, return to the OR and discharged to SNF. Patient is above average for pneumonia, UTI, sepsis and dehydration. Overall patient has 4 MET functional activity doing her most of the work herself on walker. She is moderate perioperative risk for medical and surgical complications Patient is scheduled for orthopedic surgery finally, the orthopedic surgeon on- call has been contacted by the ED physician with ORIF planned for at 8:00 AM tomorrow with help appreciated in advance. 09/30: Patient physically doing well with PT and OT. Out of bed to chair. Surgical dressing dry. Labs reviewed. Postop x-ray shows left hip joint anatomic alignment. No radiological evidence of postoperative complication. Discussed with the disease case manager rn to start for precertification/authorization for SNF 10/01: Patient is doing well. Did not had bowel yesterday and today. Senna S2 tablet twice daily and MiraLAX started. Dulcolax 10 mg 1 dose. Patient looks mildly confused or delirious as she is on high-dose of oxycodone and Dilaudid asneeded therefore oxycodone dose is decreased to 2.5 to 5 mg as needed for moderate to severe pain respectively and Dilaudid discontinued. Patient got haloperidol last night. 10/02: Documented BM 09/28 but patient said she had bowel movement on 09/29. Dulcolax 10 mg repeated with suppository.Pending pre-CERT CKD stage IIIb: BUNs/creatinine 03/07.08. Creatinine on admission 1.0. No majorsignificant difference. Estimated creatinine clearance around 45-50 mill per minute mL due to her increased age. Hyperglycemia: Glucose is elevated in BMP, 141 mg/dL. No history of diabetes mellitus. A1c ordered for tomorrow AM. 2. History of ICH; after fall (~6 weeks ago) with subsequent severe photosensitivity. Hold preoperative blood thinners to minimize risk of recurrence. 3. Essential Hypertension - Continue home regimen plus give prn IV hydralazine for systolic blood pressure > 160 mmHg. 4. Hyperlipidemia; with intolerance to statins -fasting profile within normal limit. LDL 124, HDL 54. Triglycerides 87. 5. History of CAD; s/p stent - Noted. Chest x-ray initially reviewed and shows AICD, triple lead. No pulmonary venouscongestion or pulmonary edema. Patient does not have chest pain or shortness ofbreath. Twelve-lead EKG was reviewed shows AV dual paced rhythm at 70 bpm. QRSand QTc prolonged expected from defibrillator. 6. History of CHF - Stable with no evidence of acute flare at this time. Chronic systolic and diastolic heart failure as per history from POA, Dr. Júnior Hays which states he has EF about 30%. No documentation available. 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 Hawthorne. Clinically, not in acute heart failure. 2D echo ordered for tomorrow 09/30: Echo was done. EF 40 to 45%. Evidence of diastolic dysfunction. Mild AIand hypokinesis of apex lateral and posterior salazar. As per POA, compared to last EF outside, it seems that her EF has improved. 10/01: Echo finding was discussed and update was given to the patient's niece, Dr. Hays's . 7. History of arrhythmia; s/p PPM/AICD -no acute issues 8. OA - Stable. Give Tylenol prn. 9. DVT prophylaxis - We will avoid preoperative blood thinners in patient's with traumatic fracture due to increased risk of bleeding complications. SCD onRLE only. Postoperative DVT prophylaxis to be chosen by orthopod. Clinical Impression(s) from Imaging Studies Pelvis X-Ray 09/29/23 12:54 IMPRESSION: Left femoral neck fracture. Electronically Signed: Enrrique Carty MD at 13:16 EDT , Chest X-Ray 09/29/23 14:25 IMPRESSION: Cardiac enlargement. No focal infiltrate. Electronically Signed: Enrrique Carty MD at 14:48 EDT , Hip/Pelvis X-Ray 09/29/23 14:25 IMPRESSION: Left femoral neck fracture. Electronically Signed: Enrrique Carty MD at 14:49 EDT , Echocardiogram 09/30/23 12:43 Interpretation Summary The estimated ejection fraction is 40-45 %. There is evidence of diastolic dysfunction. Mild (1+) aortic valve insufficiency. Hypokinesis of the apex, lateral wall and posterior salazar Hip X-Ray 09/30/23 13:10 IMPRESSION: Replaced left hip joint demonstrates anatomic alignment, no plain film evidence of postoperative complications Electronically Signed: Bryan Tran MD at 13:37 EDT , Charges/Coding Visit Charges Inpatient E&M: 69835 Subs Hosp L2 10/03/23 1328 <Electronically signed by Anson Waite MD> Cosigner Signature (if applicable): CC: ~ Signed [facility] Work Phone: 1(829) 948-398904-30-2024 Progress note Author Anson Waite [facility] October 02, 2023 1:43pm Note Date/Time October 02, 2023 1:3 7pm [facility] Medical Records Department [address] [place] [address] Progress Note - Hospitalist 10/02/23 1335 MR#: [id number] Acct: [id number] Name: SHERRIE LOZANO Rep #:[id number] : 1935 88 From: Anson Pritchard PCP: Dr. Viet Lovett MD Status:ADM I N Location: [place] [id number] Reason for Visit Reason for Visit: Diagnoses Contusion of lower back and pelvis, initial encounter (09/29/23) Laceration without foreign body of left elbow, initial encounter (09/29/23) Fracture of unspecified part of neck of left femur, initial encounter for closedfracture (09/29/23) Unspecified fall, initial encounter (09/29/23) Personal history of other diseases of the circulatory system (09/29/23) Presence of automatic (implantable) cardiac defibrillator (09/29/23) Presence of unspecified artificial hip joint (09/29/23) Objective Data Objective Data Vital Signs: Vital Signs Temp Pulse Resp BP Pulse Ox O2 Del Method O2 Flow Rate 98.7 F 70 16 124/51 H 93 Room Air 2 10/02/23 11:19 10/02/23 11:19 10/02/23 11:19 10/02/23 11:19 10/02/23 11:19 10/02/23 11:19 10/01/23 01:28 Oxygen Flow Rate (L/min) 2 Oxygen Delivery Method Room Air Weight: 102 lb 8.239 oz Body Mass Index (BMI) 18.1 Intake & Output: Intake and Output for Last 24 Hours 09/30/23 10/01/23 10/02/23 23:59 23:59 23:59 Intake Total 1891.00 / 1891.00 2200 / 2200 250 / 250 Output Total 1250 / 1250 300 / 300 Balance 641.00 / 641.00 1900 / 1900 250 / 250 Medical Nutrition Assessment Dietitian: Malnutrition Criteria Met Start: 09/30/23 15:18 Freq: Status: Active Protocol: Document 10/02/23 12:07 RMA (Rec: 10/02/23 12:08 RMA [id number]) Nutrition Malnutrition Evidence of Malnutrition Exists Yes Malnutrition (severe): Chronic Evidenced By Suboptimal Energy Intake ( Severe),Weight Loss (Moderate) ,Physical Changes (Moderate) Clinical Problem Chronic Disease or Condition Related Malnutrition Etiology suspect severe protein-calorie malnutrition in the context of chronic disease and debility related to inadequate oral/energy intake Signs/Symptoms as evidenced by BMI 17.4, ~5-6 % unintentional weight loss in undetermined timeframe, PO meeting <50% estimated nutrition needs x 1 month and moderate to severe muscle wasting/fat depletion in the clavicle, arms and legs Status Active Problem Recommendation Dietitian Recommendations/Changes Will change diet to sodium- restricted, liberalize as needed. Fluid restriction per physician as indicated. Will add 120mL ensure plus HP 3 times per day w/ medpass. Will add ensure compact w/ breakfast, fortified pudding w / lunch and magic cup w/ dinner. Lab / Micro Data 10/02/23 07:20 10/02/23 07:20 Labs: Laboratory Results - last 24 hr 10/02/23 07:20: WBC 9.5, RBC 3.72 L, Hgb 11.3 L, Hct 35.3 L, MCV 94.9, MCH 30.4,MCHC 32.0, RDW Std Deviation 56.7 H, RDW Coeff of Marie 16.2 H, Plt Count 250, MPV10.0, Immature Gran % (Auto) 0.500, Neut % (Auto) 84.0 H, Lymph % (Auto) 7.3 L, Winn % (Auto) 7.4, Eos % (Auto) 0.6, Baso % (Auto) 0.2, Absolute Neuts (auto) 8.0 H, Absolute Lymphs (auto) 0.69 L, Nucleated RBC % 0, Sodium 139, Potassium 3.9, Chloride 107, Carbon Dioxide 29.0, Anion Gap 3 L, BUN31 H, Creatinine 1.03 H, Estim Creat Clear Calc 28.25, Est GFR (MDRD) Af Amer 65, Est GFR (MDRD) Non-Af 54 L, BUN/Creatinine Ratio 30.1 H, Glucose 115 H, Hemoglobin A1c 5.4, Calcium 9.2 Radiography Diagnostic Testing: Radiology Impression Echocardiogram 09/30/23 12:43 Interpretation Summary The estimated ejection fraction is 40-45 %. There is evidence of diastolic dysfunction. Mild (1+) aortic valve insufficiency. Hypokinesis of the apex, lateral wall and posterior salazar Ordering Physician: Anson Waite Performed By: Vipul Sotelo RCS Physical Exam Narrative Seen and examined. Patient is postop day 2. Had surgery on 09/30/2023. Patient voiding urine. Patient had bowel movement in the evening of surgery. Physical exam General: Alert, Oriented x3, Cooperative HEENT: Atraumatic, PERRLA, EOMI, Normocephalic. Photosensitivity Oral: Oral mucosa dry. No Gingival or Mucosal Lesions/ Ulcerations Neck: Supple, No JVD, Negative Carotid Bruits Chest wall/Lungs: Air entry diminished in bilateral lung bases. No crepitation/rhonchi Cardiovascular: Regular rate, Regular Rhythm, Normal S1, Normal S2, systolic murmur LLSB. Abdomen: Bowel Sounds Present, Soft, Non Tender, Non-Distended : No dysuria. No renal angle tenderness. No suprapubic tenderness. Extremities: No edema, Capillary Refill Less than 3 Seconds Skin: Left pelvic contusion and Left lateral elbow, 2 skin tears. No active bleeding Musculoskeletal: Status post left hip hemiarthroplasty. Up and out of bed. Surgical dressing dry. Neurological: Cranial nerves II-XII grossly intact, DTR 2+/4. No acute focal neurological deficit. Psych/Mental Status: Flat affect. Mild cognitive deficits. Assessment & Plan Assessment/Plan (1) Fracture of femoral neck, left, closed: QUALIFIERS: Encounter type: initial encounter Qualified Code(s): S72.002A - Fracture of unspecified part of neck of left femur, initial encounterfor closed fracture (2) Contusion of pelvic region: QUALIFIERS: Encounter type: initial encounter Qualified Code(s): S30.0XXA - Contusion of lower back and pelvis, initial encounter (3) ISTAP type 3 skin tear of left elbow: (4) Presence of combination internal cardiac defibrillator (ICD) and pacemaker: PLAN: Plan 88-year-old female was admitted to [facility] floor after she lost her balance, left knee buckled and gave out while using walker to ambulate resulting in mechanical fall on left hip elbow and forearm. She was found left hip fracture on imaging 1. Left Femoral Neck Fracture, impacted with mild displacement due to mechanical Fall with pelvic contusion and Left lateral elbow skin tears x 2 - Admit to general medical floor. Has Drake catheter. Give Tylenol prn for [id number] (level 1-5/10) pain or fever. Give Morphine IV prn for severe (level 6-10/10) pain. Give Flexeril 5 mg PO TID prn for muscle spasms. Hip andpelvis x-ray directly reviewed. Left humeral neck fracture with impaction with mild displacement 0.7 cm. Normal left acetabulum. 09/29: Perioperative surgical risk calculated. Patient within average risk of serious complication, any complication, return to the OR and discharged to SNF. Patient is above average for pneumonia, UTI, sepsis and dehydration. Overall patient has 4 MET functional activity doing her most of the work herself on walker. She is moderate perioperative risk for medical and surgical complications Patient is scheduled for orthopedic surgery finally, the orthopedic surgeon on- call has been contacted by the ED physician with ORIF planned for at 8:00 AM tomorrow with help appreciated in advance. 09/30: Patient physically doing well with PT and OT. Out of bed to chair. Surgical dressing dry. Labs reviewed. Postop x-ray shows left hip joint anatomic alignment. No radiological evidence of postoperative complication. Discussed with the disease case manager rn to start for precertification/authorization for SNF 10/01: Patient is doing well. Did not had bowel yesterday and today. Senna S2 tablet twice daily and MiraLAX started. Dulcolax 10 mg 1 dose. Patient looks mildly confused or delirious as she is on high-dose of oxycodone and Dilaudid asneeded therefore oxycodone dose is decreased to 2.5 to 5 mg as needed for moderate to severe pain respectively and Dilaudid discontinued. Patient got haloperidol last night. CKD stage IIIb: BUNs/creatinine 30/1.08. Creatinine on admission 1.0. No majorsignificant difference. Estimated creatinine clearance around 45-50 mill per minute mL due to her increased age. Hyperglycemia: Glucose is elevated in BMP, 141 mg/dL. No history of diabetes mellitus. A1c ordered for tomorrow AM. 2. History of ICH; after fall (~6 weeks ago) with subsequent severe photosensitivity. Hold preoperative blood thinners to minimize risk of recurrence. 3. Essential Hypertension - Continue home regimen plus give prn IV hydralazine for systolic blood pressure > 160 mmHg. 4. Hyperlipidemia; with intolerance to statins -fasting profile within normal limit. LDL 124, HDL 54. Triglycerides 87. 5. History of CAD; s/p stent - Noted. Chest x-ray initially reviewed and shows AICD, triple lead. No pulmonary venouscongestion or pulmonary edema. Patient does not have chest pain or shortness ofbreath. Twelve-lead EKG was reviewed shows AV dual paced rhythm at 70 bpm. QRSand QTc prolonged expected from defibrillator. 6. History of CHF - Stable with no evidence of acute flare at this time. Chronic systolic and diastolic heart failure as per history from POA, Dr. Júnior Hays which states he has EF about 30%. No documentation available. 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 Hawthorne. Clinically, not in acute heart failure. 2D echo ordered for tomorrow 09/30: Echo was done. EF 40 to 45%. Evidence of diastolic dysfunction. Mild AIand hypokinesis of apex lateral and posterior salazar. As per POA, compared to last EF outside, it seems that her EF has improved. 10/01: Echo finding was discussed and update was given to the patient's niece, Dr. Hays's . 7. History of arrhythmia; s/p PPM/AICD -no acute issues 8. OA - Stable. Give Tylenol prn. 9. DVT prophylaxis - We will avoid preoperative blood thinners in patient's with traumatic fracture due to increased risk of bleeding complications. SCD onRLE only. Postoperative DVT prophylaxis to be chosen by orthopod. Clinical Impression(s) from Imaging Studies Pelvis X-Ray 09/29/23 12:54 IMPRESSION: Left femoral neck fracture. Electronically Signed: Enrrique Carty MD at 13:16 EDT , Chest X-Ray 09/29/23 14:25 IMPRESSION: Cardiac enlargement. No focal infiltrate. Electronically Signed: Enrrique Carty MD at 14:48 EDT , Hip/Pelvis X-Ray 09/29/23 14:25 IMPRESSION: Left femoral neck fracture. Electronically Signed: Enrrique Carty MD at 14:49 EDT , Echocardiogram 09/30/23 12:43 Interpretation Summary The estimated ejection fraction is 40-45 %. There is evidence of diastolic dysfunction. Mild (1+) aortic valve insufficiency. Hypokinesis of the apex, lateral wall and posterior salazar Hip X-Ray 09/30/23 13:10 IMPRESSION: Replaced left hip joint demonstrates anatomic alignment, no plain film evidence of postoperative complications Electronically Signed: Bryan Tran MD at 13:37 EDT , Charges/Coding Visit Charges Inpatient E&M: 08174 Subs Hosp L2 10/02/23 1343 <Electronically signed by Anson Waite MD> Cosigner Signature (if applicable): CC: ~ Signed [facility] Work Phone: 1([phone]) 438-739204-29-2024 Progress note Author Anson Waite [facility] October 01, 2023 4:41pm Note Date/Time October 01, 2023 4:4 1pm [facility] Medical Records Department [address] [place] [address] Progress Note - Hospitalist 10/01/23 1632 MR#: [id number] Acct: [id number] Name: SHERRIE LOZANO Rep #:[id number] : 1935 88 From: Anson Pritchard PCP: Dr. Viet Lovett MD Status:ADM I N Location: [place] [id number] Reason for Visit Reason for Visit: Diagnoses Contusion of lower back and pelvis, initial encounter (09/29/23) Laceration without foreign body of left elbow, initial encounter (09/29/23) Fracture of unspecified part of neck of left femur, initial encounter for closedfracture (09/29/23) Unspecified fall, initial encounter (09/29/23) Personal history of other diseases of the circulatory system (09/29/23) Presence of automatic (implantable) cardiac defibrillator (09/29/23) Presence of unspecified artificial hip joint (09/29/23) Objective Data Objective Data Vital Signs: Vital Signs Temp Pulse Resp BP Pulse Ox O2 Del Method O2 Flow Rate 97.5 F L 67 18 114/45 L 98 Room Air 2 10/01/23 15:15 10/01/23 15:15 10/01/23 15:15 10/01/23 15:15 10/01/23 15:15 10/01/23 15:00 10/01/23 01:28 Oxygen Flow Rate (L/min) 2 Oxygen Delivery Method Room Air Weight: 102 lb 8.239 oz Body Mass Index (BMI) 18.1 Intake & Output: Intake and Output for Last 24 Hours 09/29/23 09/30/23 10/01/23 23:59 23:59 23:59 Intake Total 235 / 235 1891.00 / 1891.00 1550 / 1550 Output Total 300 / 550 1250 / 1250 300 / 300 Balance -65 / -315 641.00 / 641.00 1250 / 1250 Medical Nutrition Assessment Dietitian: Malnutrition Criteria Met Start: 09/30/23 15:18 Freq: Status: Active Protocol: Document 09/30/23 15:18 RMA (Rec: 09/30/23 15:18 RMA [id number]) Nutrition Malnutrition Evidence of Malnutrition Exists Yes Malnutrition (severe): Chronic Evidenced By Suboptimal Energy Intake ( Severe),Weight Loss (Moderate) ,Physical Changes (Moderate) Intake Problem Inadequate Oral Intake Etiology related to surgery Signs/Symptoms as evidenced by NPO Status Active Problem Clinical Problem Chronic Disease or Condition Related Malnutrition Etiology suspect severe protein-calorie malnutrition in the context of chronic disease and debility related to inadequate oral/energy intake Signs/Symptoms as evidenced by BMI 17.4, ~5-6 % unintentional weight loss in undetermined timeframe, PO meeting <50% estimated nutrition needs x 1 month and moderate to severe muscle wasting/fat depletion in the clavicle, arms and legs; pt is currently NPO for surgery Status Active Problem Recommendation Dietitian Recommendations/Changes Recommend advance diet as tolerated to liberalized regular/no added salt. Recommend 120mL ensure plus HP 3 times per day w/ medpass as diet advanced post-op. Additional ONS as PO established with meals. Lab / Micro Data 10/01/23 06:02 10/01/23 06:02 Labs: Laboratory Results - last 24 hr 10/01/23 06:02: WBC 10.1, RBC 4.22, Hgb 12.8, Hct 40.7, MCV 96.4, MCH 30.3, MCHC31.4 L, RDW Std Deviation 58.4 H, RDW Coeff of Marie 16.3 H, Plt Count 236, MPV 10.4, Immature Gran % (Auto) 0.600, Neut % (Auto) 83.6 H, Lymph % (Auto) 6.6 L, Winn % (Auto) 9.1, Eos % (Auto) 0.0, Baso % (Auto) 0.1, Absolute Neuts (auto) 8.4 H, Absolute Lymphs (auto) 0.67 L, Nucleated RBC % 0, Sodium 140, Potassium 4.5, Chloride 109 H, Carbon Dioxide 26.0, Anion Gap 5, BUN 30 H, Creatinine 1.08H, Estim Creat Clear Calc 26.94, Est GFR (MDRD) Af Amer 62, Est GFR (MDRD) Non-Af 51 L, BUN/Creatinine Ratio 27.8 H, Glucose 141 H, Calcium 9.2 Radiography Diagnostic Testing: Radiology Impression Echocardiogram 09/30/23 12:43 Interpretation Summary The estimated ejection fraction is 40-45 %. There is evidence of diastolic dysfunction. Mild (1+) aortic valve insufficiency. Hypokinesis of the apex, lateral wall and posterior salazar Ordering Physician: Anson Waite Performed By: Vipul Sotelo, ANTHONY Physical Exam Narrative Seen and examined. Patient is postop day 1. Had surgery on 09/30/2023. Patient voiding urine. Hadbowel movement yesterday after surgery. Physical exam General: Alert, Oriented x3, Cooperative HEENT: Atraumatic, PERRLA, EOMI, Normocephalic. Photosensitivity Oral: Oral mucosa dry. No Gingival or Mucosal Lesions/ Ulcerations Neck: Supple, No JVD, Negative Carotid Bruits Chest wall/Lungs: Air entry diminished in bilateral lung bases. No crepitation/rhonchi Cardiovascular: Regular rate, Regular Rhythm, Normal S1, Normal S2, systolic murmur LLSB. Abdomen: Bowel Sounds Present, Soft, Non Tender, Non-Distended : No dysuria. No renal angle tenderness. No suprapubic tenderness. Extremities: No edema, Capillary Refill Less than 3 Seconds Skin: Left pelvic contusion and Left lateral elbow, 2 skin tears. No active bleeding Musculoskeletal: Status post left hip hemiarthroplasty. Up and out of bed. Surgical dressing dry. Neurological: Cranial nerves II-XII grossly intact, DTR 2+/4. No acute focal neurological deficit. Psych/Mental Status: Flat affect. Mild cognitive deficits. Assessment & Plan Assessment/Plan (1) Fracture of femoral neck, left, closed: QUALIFIERS: Encounter type: initial encounter Qualified Code(s): S72.002A - Fracture of unspecified part of neck of left femur, initial encounterfor closed fracture (2) Contusion of pelvic region: QUALIFIERS: Encounter type: initial encounter Qualified Code(s): S30.0XXA - Contusion of lower back and pelvis, initial encounter (3) ISTAP type 3 skin tear of left elbow: (4) Presence of combination internal cardiac defibrillator (ICD) and pacemaker: PLAN: Plan 88-year-old female was admitted to [facility] after she lost her balance, left knee buckled and gave out while using walker to ambulate resulting in mechanical fall on left hip elbow and forearm. She was found left hip fracture on imaging 1. Left Femoral Neck Fracture, impacted with mild displacement due to mechanical Fall with pelvic contusion and Left lateral elbow skin tears x 2 - Admit to general medical floor. Has Drake catheter. Give Tylenol prn for [id number] (level 1-5/10) pain or fever. Give Morphine IV prn for severe (level 6-10/10) pain. Give Flexeril 5 mg PO TID prn for muscle spasms. Hip andpelvis x-ray directly reviewed. Left humeral neck fracture with impaction with mild displacement 0.7 cm. Normal left acetabulum. 09/29: Perioperative surgical risk calculated. Patient within average risk of serious complication, any complication, return to the OR and discharged to SNF. Patient is above average for pneumonia, UTI, sepsis and dehydration. Overall patient has 4 MET functional activity doing her most of the work herself on walker. She is moderate perioperative risk for medical and surgical complications Patient is scheduled for orthopedic surgery finally, the orthopedic surgeon on- call has been contacted by the ED physician with ORIF planned for at 8:00 AM tomorrow with help appreciated in advance. 09/30: Patient physically doing well with PT and OT. Out of bed to chair. Surgical dressing dry. Labs reviewed. Postop x-ray shows left hip joint anatomic alignment. No radiological evidence of postoperative complication. Discussed with the disease case manager rn to start for precertification/authorization for SNF CKD stage IIIb: BUNs/creatinine 30/1.08. Creatinine on admission 1.0. No majorsignificant difference. Estimated creatinine clearance around 45-50 mill per minute mL due to her increased age. Hyperglycemia: Glucose is elevated in BMP, 141 mg/dL. No history of diabetes mellitus. A1c ordered for tomorrow AM. 2. History of ICH; after fall (~6 weeks ago) with subsequent severe photosensitivity. Hold preoperative blood thinners to minimize risk of recurrence. 3. Essential Hypertension - Continue home regimen plus give prn IV hydralazine for systolic blood pressure > 160 mmHg. 4. Hyperlipidemia; with intolerance to statins -fasting profile within normal limit. LDL 124, HDL 54. Triglycerides 87. 5. History of CAD; s/p stent - Noted. Chest x-ray initially reviewed and shows AICD, triple lead. No pulmonary venouscongestion or pulmonary edema. Patient does not have chest pain or shortness ofbreath. Twelve-lead EKG was reviewed shows AV dual paced rhythm at 70 bpm. QRSand QTc prolonged expected from defibrillator. 6. History of CHF - Stable with no evidence of acute flare at this time. Chronic systolic and diastolic heart failure as per history from POA, Dr. Júnior Hays which states he has EF about 30%. No documentation available. 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 Hawthorne. Clinically, not in acute heart failure. 2D echo ordered for tomorrow 09/30: Echo was done. EF 40 to 45%. Evidence of diastolic dysfunction. Mild AIand hypokinesis of apex lateral and posterior salazar. As per POA, compared to last EF outside, it seems that her EF has improved. 7. History of arrhythmia; s/p PPM/AICD -no acute issues 8. OA - Stable. Give Tylenol prn. 9. DVT prophylaxis - We will avoid preoperative blood thinners in patient's with traumatic fracture due to increased risk of bleeding complications. SCD onRLE only. Postoperative DVT prophylaxis to be chosen by orthopod. Laboratory Results 10/01/23 06:02: WBC 10.1, RBC 4.22, Hgb 12.8, Hct 40.7, MCV 96.4, MCH 30.3, MCHC31.4 L, RDW Std Deviation 58.4 H, RDW Coeff of Marie 16.3 H, Plt Count 236, MPV 10.4, Immature Gran % (Auto) 0.600, Neut % (Auto) 83.6 H, Lymph % (Auto) 6.6 L, Winn % (Auto) 9.1, Eos % (Auto) 0.0, Baso % (Auto) 0.1, Absolute Neuts (auto) 8.4 H, Absolute Lymphs (auto) 0.67 L, Nucleated RBC % 0, Sodium 140, Potassium 4.5, Chloride 109 H, Carbon Dioxide 26.0, Anion Gap 5, BUN 30 H, Creatinine 1.08H, Estim Creat Clear Calc 26.94, Est GFR (MDRD) Af Amer 62, Est GFR (MDRD) Non-Af 51 L, BUN/Creatinine Ratio 27.8 H, Glucose 141 H, Calcium 9.2 Clinical Impression(s) from Imaging Studies Pelvis X-Ray 09/29/23 12:54 IMPRESSION: Left femoral neck fracture. Electronically Signed: Enrrique Carty MD at 13:16 EDT , Chest X-Ray 09/29/23 14:25 IMPRESSION: Cardiac enlargement. No focal infiltrate. Electronically Signed: Enrrique Carty MD at 14:48 EDT , Hip/Pelvis X-Ray 09/29/23 14:25 IMPRESSION: Left femoral neck fracture. Electronically Signed: Enrrique Carty MD at 14:49 EDT , Echocardiogram 09/30/23 12:43 Interpretation Summary The estimated ejection fraction is 40-45 %. There is evidence of diastolic dysfunction. Mild (1+) aortic valve insufficiency. Hypokinesis of the apex, lateral wall and posterior salazar Hip X-Ray 09/30/23 13:10 IMPRESSION: Replaced left hip joint demonstrates anatomic alignment, no plain film evidence of postoperative complications Electronically Signed: Bryan Tran MD at 13:37 EDT , Charges/Coding Visit Charges Inpatient E&M: 52905 Subs Hosp L2 10/01/23 1641 <Electronically signed by Anson Waite MD> Cosigner Signature (if applicable): CC: ~ Signed [facility] Work Phone: [phone]) 732-249204-29-2024 Progress [facility] 01, 2023 11:45am Note Date/Time October 01, 2023 11: 45am [facility] Medical Records Department [address] [place] [address] Progress Note - Orthopedic 10/01/23 1142 MR#: [id number] Acct: [id number] Name: SHERRIE LOZANO Rep #:[id number] : 1935 88 From: Amol Yoder DO PCP: Dr. Viet Lovett MD Status:ADM I N [facility] Subjective Subjective Seen and examined. Pain controlled denies any fevers chills nausea vomiting shortness of breath or chest pain has ambulated with physical therapy. Had some confusion postoperatively that has resolved Objective Data Objective Data Vital Signs: Vital Signs Temp Pulse Resp BP Pulse Ox O2 Del Method O2 Flow Rate 98.3 F 69 18 139/64 H 98 Room Air 2 10/01/23 09:00 10/01/23 09:00 10/01/23 09:00 10/01/23 09:00 10/01/23 09:00 10/01/23 09:00 10/01/23 01:28 Oxygen Flow Rate (L/min) 2 Oxygen Delivery Method Room Air Weight: 102 lb 8.239 oz Body Mass Index (BMI) 18.1 Intake & Output: Intake and Output for Last 24 Hours 09/29/23 09/30/23 10/01/23 23:59 23:59 23:59 Intake Total 235 / 235 1891.00 / 1891.00 1050 / 1050 Output Total 300 / 550 1250 / 1250 300 / 300 Balance -65 / -315 641.00 / 641.00 750 / 750 Medical Nutrition Assessment Dietitian: Malnutrition Criteria Met Start: 09/30/23 15:18 Freq: Status: Active Protocol: Document 09/30/23 15:18 RMA (Rec: 09/30/23 15:18 RMA [id number]) Nutrition Malnutrition Evidence of Malnutrition Exists Yes Malnutrition (severe): Chronic Evidenced By Suboptimal Energy Intake ( Severe),Weight Loss (Moderate) ,Physical Changes (Moderate) Intake Problem Inadequate Oral Intake Etiology related to surgery Signs/Symptoms as evidenced by NPO Status Active Problem Clinical Problem Chronic Disease or Condition Related Malnutrition Etiology suspect severe protein-calorie malnutrition in the context of chronic disease and debility related to inadequate oral/energy intake Signs/Symptoms as evidenced by BMI 17.4, ~5-6 % unintentional weight loss in undetermined timeframe, PO meeting <50% estimated nutrition needs x 1 month and moderate to severe muscle wasting/fat depletion in the clavicle, arms and legs; pt is currently NPO for surgery Status Active Problem Recommendation Dietitian Recommendations/Changes Recommend advance diet as tolerated to liberalized regular/no added salt. Recommend 120mL ensure plus HP 3 times per day w/ medpass as diet advanced post-op. Additional ONS as PO established with meals. Lab / Micro Data 10/01/23 06:02 10/01/23 06:02 Labs: Laboratory Results - last 24 hr 09/30/23 13:59: POC Glucose 92 10/01/23 06:02: WBC 10.1, RBC 4.22, Hgb 12.8, Hct 40.7, MCV 96.4, MCH 30.3, MCHC31.4 L, RDW Std Deviation 58.4 H, RDW Coeff of Marie 16.3 H, Plt Count 236, MPV 10.4, Immature Gran % (Auto) 0.600, Neut % (Auto) 83.6 H, Lymph % (Auto) 6.6 L, Winn % (Auto) 9.1, Eos % (Auto) 0.0, Baso % (Auto) 0.1, Absolute Neuts (auto) 8.4 H, Absolute Lymphs (auto) 0.67 L, Nucleated RBC % 0, Sodium 140, Potassium 4.5, Chloride 109 H, Carbon Dioxide 26.0, Anion Gap 5, BUN 30 H, Creatinine 1.08H, Estim Creat Clear Calc 26.94, Est GFR (MDRD) Af Amer 62, Est GFR (MDRD) Non-Af 51 L, BUN/Creatinine Ratio 27.8 H, Glucose 141 H, Calcium 9.2 Radiography Diagnostic Testing: Radiology Impression Hip X-Ray 09/30/23 13:10 IMPRESSION: Replaced left hip joint demonstrates anatomic alignment, no plain film evidence of postoperative complications Electronically Signed: Bryan Tran MD at 13:37 EDT , Physical Exam Const alert, oriented x3 and no apparent distress Extremity Extremity Narrative: Dressing clean dry intact compartments soft neurovascular intact EHL tibialis anterior gastrocsoleus intact sensation light touch 2 out of 4 pedal pulse Assessment & Plan Assessment/Plan (1) S/P hip hemiarthroplasty: PLAN: Plan Postop day 1 left hip hemiarthroplasty for displaced femoral neck fracture PT OT weightbearing as tolerated precautions DVT prophylaxis SCDs KIMI hose Eliquis 2.5 mg twice daily for 3 weeks Pain control oxycodone and Tylenol Will likely benefit from rehab or transitional care Dressing to be left undisturbed for 7 days postop then removed and cleaned dailywith antibacterial soap and warm water and replace daily after that point. Follow-up in the office 2 weeks for staple removal wound check if patient is at a [facility] rehab or TCU I am happy to see her there instead. Call with any questions or concerns 10/01/23 7884 <Electronically signed by Amol Yoder DO> Cosigner Signature (if applicable): CC: ~ Signed [facility] Work Phone: 1(426) 404-603504-28-2024 Progress note Author Anson Waite [facility] September 30, 2023 12:41pm Note Date/Time September 30, 2023 7:5 4am [facility] Medical Records Department [address] [place] [id number] Progress Note - Hospitalist 09/30/23 0752 MR#: [id number] Acct: [id number] Name: SHERRIE LOZANO Rep #:[id number] : 1935 88 From: Anson Pritchard PCP: Dr. Viet Lovett MD Status:ADM I N Location: [place] 600235-1 Reason for Visit Reason for Visit: Diagnoses Contusion of lower back and pelvis, initial encounter (09/29/23) Laceration without foreign body of left elbow, initial encounter (09/29/23) Fracture of unspecified part of neck of left femur, initial encounter for closedfracture (09/29/23) Unspecified fall, initial encounter (09/29/23) Personal history of other diseases of the circulatory system (09/29/23) Presence of automatic (implantable) cardiac defibrillator (09/29/23) Objective Data Objective Data Vital Signs: Vital Signs Temp Pulse Resp BP Pulse Ox O2 Del Method 97.8 F 70 16 132/63 H 97 Room Air 09/30/23 03:00 09/30/23 03:00 09/30/23 03:00 09/30/23 03:00 09/30/23 03:00 09/30/23 03:00 Oxygen Delivery Method Room Air Weight: 98 lb 1.691 oz Body Mass Index (BMI) 17.4 Intake & Output: Intake and Output for Last 24 Hours 09/28/23 09/29/23 09/30/23 23:59 23:59 23:59 Intake Total 235 / 235 866.83 / 866.83 Output Total 300 / 550 500 / 500 Balance -65 / -315 366.83 / 366.83 Lab / Micro Data 09/30/23 04:32 09/30/23 04:32 Labs: Laboratory Results - last 24 hr 09/29/23 14:20: WBC 6.7, RBC 4.83, Hgb 14.8, Hct 45.6, MCV 94.4, MCH 30.6, MCHC 32.5, RDW Std Deviation 55.5 H, RDW Coeff of Marie 15.9 H, Plt Count 314, MPV 9.9,Immature Gran % (Auto) 0.900, Neut % (Auto) 71.8 H, Lymph % (Auto) 19.6, Winn % (Auto) 5.8, Eos % (Auto) 1.6, Baso % (Auto) 0.3, Absolute Neuts (auto) 4.8, Absolute Lymphs (auto) 1.31, Nucleated RBC % 0, Sodium 140, Potassium 4.9, Chloride 106, Carbon Dioxide 31.0, Anion Gap 3 L, BUN 36 H, Creatinine 1.00, Estim Creat Clear Calc 25.84, Est GFR (MDRD) Af Amer 67, Est GFR (MDRD) Non-Af 56 L, BUN/Creatinine Ratio 36.0 H, Glucose 93, Calcium 9.6, Blood Type O POSITIVE, Antibody Screen NEGATIVE 09/29/23 19:00: Triglycerides 87, Cholesterol 195, LDL Cholesterol 124, VLDL Cholesterol 17, HDL Cholesterol 54 09/30/23 04:32: WBC 8.3, RBC 4.23, Hgb 12.8, Hct 41.6, MCV 98.3, MCH 30.3, MCHC 30.8 L D, RDW Std Deviation 60.2 H, RDW Coeff of Marie 16.6 H, Plt Count 257, MPV 9.7, Immature Gran % (Auto) 0.500, Neut % (Auto) 77.8 H, Lymph % (Auto) 12.0 L, Winn % (Auto) 7.9, Eos % (Auto) 1.3, Baso % (Auto) 0.5, Absolute Neuts (auto) 6.4, Absolute Lymphs (auto) 0.99, Nucleated RBC % 0, Sodium 140, Potassium 4.6, Chloride 112 H, Carbon Dioxide 26.0, Anion Gap 2 L, BUN 35 H, Creatinine 0.99, Estim Creat Clear Calc 28.12, Est GFR (MDRD) Af Amer 68, Est GFR (MDRD) Non-Af 56 L, BUN/Creatinine Ratio 35.4 H, Glucose 122 H, Calcium 8.5, Phosphorus 3.8, Magnesium 2.9 H, Total Bilirubin 0.60, AST 20, ALT 23, Alkaline Phosphatase 68, Total Protein 6.1 L, Albumin 2.9 L, Globulin 3.2, Albumin/Globulin Ratio 0.9 Radiography Diagnostic Testing: Radiology Impression Pelvis X-Ray 09/29/23 12:54 IMPRESSION: Left femoral neck fracture. Electronically Signed: Enrrique Carty MD at 13:16 EDT Reading Location ID and State: [facility] / [place] , Service support , Chest X-Ray 09/29/23 14:25 IMPRESSION: Cardiac enlargement. No focal infiltrate. Electronically Signed: Enrrique Carty MD at 14:48 EDT , Hip/Pelvis X-Ray 09/29/23 14:25 IMPRESSION: Left femoral neck fracture. Electronically Signed: Enrrique Carty MD at 14:49 EDT , Physical Exam Narrative Seen and examined. History was taken from the patient and Dr. Júnior Hays who is POA. Patient is stated she fell down walking on walker with left knee buckling. She denies LOC or head injury. Complain of pain over the distal half of thigh not at hip joint. Physical exam General: Alert, Oriented x3, Cooperative HEENT: Atraumatic, PERRLA, EOMI, Normocephalic. Photosensitivity Oral: Oral mucosa dry. No Gingival or Mucosal Lesions/ Ulcerations Neck: Supple, No JVD, Negative Carotid Bruits Chest wall/Lungs: Air entry diminished in bilateral lung bases. No crepitation/rhonchi Cardiovascular: Regular rate, Regular Rhythm, Normal S1, Normal S2, No M/G/R Abdomen: Bowel Sounds Present, Soft, Non Tender, Non-Distended : No dysuria. No renal angle tenderness. No suprapubic tenderness. Extremities: No edema, Capillary Refill Less than 3 Seconds Skin: Left pelvic contusion and Left lateral elbow, 2 skin tears. No active bleeding Musculoskeletal: LLE externally rotated flexed and abducted. Tenderness presenton the greater trochanter and posterior aspect of hip. Neurological: Cranial nerves II-XII grossly intact, DTR 2+/4. No acute focal neurological deficit. Psych/Mental Status: Flat affect. Mild cognitive deficits. Assessment & Plan Assessment/Plan (1) Fracture of femoral neck, left, closed: QUALIFIERS: Encounter type: initial encounter Qualified Code(s): S72.002A - Fracture of unspecified part of neck of left femur, initial encounterfor closed fracture (2) Contusion of pelvic region: QUALIFIERS: Encounter type: initial encounter Qualified Code(s): S30.0XXA - Contusion of lower back and pelvis, initial encounter (3) ISTAP type 3 skin tear of left elbow: (4) Presence of combination internal cardiac defibrillator (ICD) and pacemaker: PLAN: Plan 88-year-old female was admitted to [facility] floor after she lost her balance, left knee buckled and gave out while using walker to ambulate resulting in mechanical fall on left hip elbow and forearm. She was found left hip fracture on imaging 1. Left Femoral Neck Fracture, impacted with mild displacement due to mechanical Fall with pelvic contusion and Left lateral elbow skin tears x 2 - Admit to general medical floor. Has Drake catheter. Give Tylenol prn for [id number]-bj-[id number] (level 1-5/10) pain or fever. Give Morphine IV prn for severe (level 6-10/10) pain. Give Flexeril 5 mg PO TID prn for muscle spasms. Hip andpelvis x-ray directly reviewed. Left humeral neck fracture with impaction with mild displacement 0.7 cm. Normal left acetabulum. 09/29: Perioperative surgical risk calculated. Patient within average risk of serious complication, any complication, return to the OR and discharged to SNF. Patient is above average for pneumonia, UTI, sepsis and dehydration. Overall patient has 4 MET functional activity doing her most of the work herself on walker. She is moderate perioperative risk for medical and surgical complications Patient is scheduled for orthopedic surgery finally, the orthopedic surgeon on- call has been contacted by the ED physician with ORIF planned for at 8:00 AM tomorrow with help appreciated in advance. 2. History of ICH; after fall (~6 weeks ago) with subsequent severe photosensitivity. Hold preoperative blood thinners to minimize risk of recurrence. 3. Essential Hypertension - Continue home regimen plus give prn IV hydralazine for systolic blood pressure > 160 mmHg. 4. Hyperlipidemia; with intolerance to statins -fasting profile within normal limit. LDL 124, HDL 54. Triglycerides 87. 5. History of CAD; s/p stent - Noted. Chest x-ray initially reviewed and shows AICD, triple lead. No pulmonary venouscongestion or pulmonary edema. Patient does not have chest pain or shortness ofbreath. Twelve-lead EKG was reviewed shows AV dual paced rhythm at 70 bpm. QRSand QTc prolonged expected from defibrillator. 6. History of CHF - Stable with no evidence of acute flare at this time. Chronic systolic heart failure as per history from CINDY, Dr. Júnior Hays which states he has EF about 30%. No documentation available. 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 Hawthorne. Clinically, not in acute heart failure. 2D echo ordered for tomorrow 7. History of arrhythmia; s/p PPM/AICD -no acute issues 8. OA - Stable. Give Tylenol prn. 9. DVT prophylaxis - We will avoid preoperative blood thinners in patient's with traumatic fracture due to increased risk of bleeding complications. SCD onRLE only. Postoperative DVT prophylaxis to be chosen by orthopod. Laboratory Results 09/29/23 14:20: WBC 6.7, RBC 4.83, Hgb 14.8, Hct 45.6, MCV 94.4, MCH 30.6, MCHC 32.5, RDW Std Deviation 55.5 H, RDW Coeff of Marie 15.9 H, Plt Count 314, MPV 9.9,Immature Gran % (Auto) 0.900, Neut % (Auto) 71.8 H, Lymph % (Auto) 19.6, Winn % (Auto) 5.8, Eos % (Auto) 1.6, Baso % (Auto) 0.3, Absolute Neuts (auto) 4.8, Absolute Lymphs (auto) 1.31, Nucleated RBC % 0, Sodium 140, Potassium 4.9, Chloride 106, Carbon Dioxide 31.0, Anion Gap 3 L, BUN 36 H, Creatinine 1.00, Estim Creat Clear Calc 25.84, Est GFR (MDRD) Af Amer 67, Est GFR (MDRD) Non-Af 56 L, BUN/Creatinine Ratio 36.0 H, Glucose 93, Calcium 9.6, Blood Type O POSITIVE, Antibody Screen NEGATIVE 09/29/23 19:00: Triglycerides 87, Cholesterol 195, LDL Cholesterol 124, VLDL Cholesterol 17, HDL Cholesterol 54 09/30/23 04:32: WBC 8.3, RBC 4.23, Hgb 12.8, Hct 41.6, MCV 98.3, MCH 30.3, MCHC 30.8 L D, RDW Std Deviation 60.2 H, RDW Coeff of Marie 16.6 H, Plt Count 257, MPV 9.7, Immature Gran % (Auto) 0.500, Neut % (Auto) 77.8 H, Lymph % (Auto) 12.0 L, Winn % (Auto) 7.9, Eos % (Auto) 1.3, Baso % (Auto) 0.5, Absolute Neuts (auto) 6.4, Absolute Lymphs (auto) 0.99, Nucleated RBC % 0, Sodium 140, Potassium 4.6, Chloride 112 H, Carbon Dioxide 26.0, Anion Gap 2 L, BUN 35 H, Creatinine 0.99, Estim Creat Clear Calc 28.12, Est GFR (MDRD) Af Amer 68, Est GFR (MDRD) Non-Af 56 L, BUN/Creatinine Ratio 35.4 H, Glucose 122 H, Calcium 8.5, Phosphorus 3.8, Magnesium 2.9 H, Total Bilirubin 0.60, AST 20, ALT 23, Alkaline Phosphatase 68, Total Protein 6.1 L, Albumin 2.9 L, Globulin 3.2, Albumin/Globulin Ratio 0.9 Clinical Impression(s) from Imaging Studies Pelvis X-Ray 09/29/23 12:54 IMPRESSION: Left femoral neck fracture. Electronically Signed: Enrrique Carty MD at 13:16 EDT Reading Location ID and State: [facility] / [place] , Service support , Chest X-Ray 09/29/23 14:25 IMPRESSION: Cardiac enlargement. No focal infiltrate. Electronically Signed: Enrrique Carty MD at 14:48 EDT Reading Location ID and State: [facility] / [place] , Service support , Hip/Pelvis X-Ray 09/29/23 14:25 IMPRESSION: Left femoral neck fracture. Electronically Signed: Enrrique Carty MD at 14:49 EDT Reading Location ID and State: [facility] / [place] , Service support , Charges/Coding Addendum Addendum: Total time of the visit including total time spent in counseling or coordinationof care, (more than 50% of the total time, spent in obtaining medical information from nurses and other ancillary care providers,explaining to the patient about labs, imaging, diagnosis and management of active complex medical conditions), discussion with the POA, orthopedic surgery, review of labs and imaging is 40 minutes. Visit Charges Inpatient E&M: 10130 Subs Hosp L3 09/30/23 1241 <Electronically signed by Anson Waite MD> Cosigner Signature (if applicable): CC: ~ Signed [facility] Work Phone: 1(760) 426-538704-28-2024 Procedure [facility] 09-30-2023 Consult note Author Amol Yoder [facility] September 30, 2023 10:49am Note Date/Time September 30, 2023 10: 49am [facility] Medical Records Department [address] [place] [address] Consultation 09/30/23 1046 MR#: [id number] Acct: [id number] Name: SHERRIE LOZANO Rep #:[id number] : 1935 88 From: Amol Yoder DO PCP: Dr. Viet Lovett MD Status:ADM I N Location: [facility] [place] [id number] Assessment & Plan Assessment/Plan (1) Fracture of femoral neck, closed: QUALIFIERS: Encounter type: initial encounter Laterality: left Qualified Code(s): S72.002A - Fracture of unspecified part of neck of left femur, initial encounter for closed fracture PLAN: Plan Discussion was had with the patient regards to her left femoral neck fracture risk benefits alternatives of the surgery were reviewed including risk of bleeding infection nerve artery tissue damage need for further surgery continuedpain and postoperative expectations she wishes to proceed with left hip hemiarthroplasty and informed consent was signed, antibiotics and tranexamic acid were ordered on- call to the OR. HPI Consult Data Date of Consult: 09/30/23 HPI Narrative HPI Narrative: SHERRIE LOZANO, is a 88 F community ambulator with walker who lives with [facility] who presents after ground-level fall where her knee buckled landing ontoher left hip immediately had significant groin pain and inability ambulate x-rays taken in the emergency room department demonstrated displaced femoral neck fracture. [facility] Medical History Brain bleed CHF (congestive heart failure) Fall ICD (implantable cardioverter-defibrillator) in place Legally blind Pacemaker Presence of combination internal cardiac defibrillator (ICD) and pacemaker Home Medications amiodarone 100 mg tablet 100 mg PO DAILY heart failure 09/29/23 [History Last Taken 09/29/23] aspirin 81 mg tablet,delayed release 81 mg PO DAILY cardiac 09/29/23 [History Last Taken 09/29/23] dapagliflozin propanediol 10 mg tablet (Farxiga) 10 mg PO DAILY renal failure 09/29/23 [History Last Taken 09/29/23] furosemide 40 mg tablet 40 mg PO DAILY heart failure 09/29/23 [History Last Taken 09/29/23] magnesium sulfate 100 mg capsule 400 mg PO DAILY muscle cramps 09/29/23 [History Last Taken 09/29/23] metoprolol succinate 25 mg tablet,extended release 24 hr 12.5 mg PO DAILY BP 09/29/23 [History Last Taken 09/29/23] sacubitril 24 mg-valsartan 26 mg tablet (Entresto) 1 tab PO BID heart 09/29/23 [History Last Taken 09/29/23] Allergy/AdvReac Type Severity Reaction Status Date / Time Nyepvev-QOV-FwU Reductase AdvReac Mild muscle Verified 09/29/23 12:42 Inhibitor aches Surgical History Stented coronary artery Social History Smoking Status: Never smoker Physical Exam Const alert, oriented x3 and no apparent distress Extremity Extremity Narrative: Positive logroll. There is mild swelling about the knee no joint effusion nontender she is nontender in her thigh or leg or ankle she is able to plantarflex dorsiflex her ankle intact sensation to light touch, patient is veryfrail skin Lab / Micro Data 09/30/23 04:32 09/30/23 04:32 Labs: Laboratory Results - last 24 hr 09/29/23 14:20: WBC 6.7, RBC 4.83, Hgb 14.8, Hct 45.6, MCV 94.4, MCH 30.6, MCHC 32.5, RDW Std Deviation 55.5 H, RDW Coeff of Marie 15.9 H, Plt Count 314, MPV 9.9,Immature Gran % (Auto) 0.900, Neut % (Auto) 71.8 H, Lymph % (Auto) 19.6, Winn % (Auto) 5.8, Eos % (Auto) 1.6, Baso % (Auto) 0.3, Absolute Neuts (auto) 4.8, Absolute Lymphs (auto) 1.31, Nucleated RBC % 0, Sodium 140, Potassium 4.9, Chloride 106, Carbon Dioxide 31.0, Anion Gap 3 L, BUN 36 H, Creatinine 1.00, Estim Creat Clear Calc 25.84, Est GFR (MDRD) Af Amer 67, Est GFR (MDRD) Non-Af 56 L, BUN/Creatinine Ratio 36.0 H, Glucose 93, Calcium 9.6, Blood Type O POSITIVE, Antibody Screen NEGATIVE 09/29/23 19:00: Triglycerides 87, Cholesterol 195, LDL Cholesterol 124, VLDL Cholesterol 17, HDL Cholesterol 54 09/30/23 04:32: WBC 8.3, RBC 4.23, Hgb 12.8, Hct 41.6, MCV 98.3, MCH 30.3, MCHC 30.8 L D, RDW Std Deviation 60.2 H, RDW Coeff of Marie 16.6 H, Plt Count 257, MPV 9.7, Immature Gran % (Auto) 0.500, Neut % (Auto) 77.8 H, Lymph % (Auto) 12.0 L, Winn % (Auto) 7.9, Eos % (Auto) 1.3, Baso % (Auto) 0.5, Absolute Neuts (auto) 6.4, Absolute Lymphs (auto) 0.99, Nucleated RBC % 0, Sodium 140, Potassium 4.6, Chloride 112 H, Carbon Dioxide 26.0, Anion Gap 2 L, BUN 35 H, Creatinine 0.99, Estim Creat Clear Calc 28.12, Est GFR (MDRD) Af Amer 68, Est GFR (MDRD) Non-Af 56 L, BUN/Creatinine Ratio 35.4 H, Glucose 122 H, Calcium 8.5, Phosphorus 3.8, Magnesium 2.9 H, Total Bilirubin 0.60, AST 20, ALT 23, Alkaline Phosphatase 68, Total Protein 6.1 L, Albumin 2.9 L, Globulin 3.2, Albumin/Globulin Ratio 0.9 Imaging Radiology Impression Pelvis X-Ray 09/29/23 12:54 IMPRESSION: Left femoral neck fracture. Electronically Signed: Enrrique Carty MD at 13:16 EDT , Chest X-Ray 09/29/23 14:25 IMPRESSION: Cardiac enlargement. No focal infiltrate. Electronically Signed: Enrrique Carty MD at 14:48 EDT Reading Location ID and State: [address] [place] [address] , Service support , Hip/Pelvis X-Ray 09/29/23 14:25 IMPRESSION: Left femoral neck fracture. Electronically Signed: Enrrique Carty MD at 14:49 EDT , 09/30/23 1049 <Electronically signed by Amol Yoder DO> Cosigner Signature (if applicable): CC: Dr. Viet Lovett MD~ Signed [facility] Work Phone: 1(333) 303-682604-27-2024 History and physical note Author Mehdi Cabrera [facility] September 29, 2023 6:39pm Note Date/Time September 29, 2023 2:2 7pm [facility] Medical Records Department [address] [place] [id number] H&P Exam - Hospitalist 09/29/23 1407 MR#: [id number] Acct: [id number] Name: SHERRIE LOZANO Rep #:[id number] : 1935 88 From: Mehdi Lundy DO PCP: Dr. Viet Lovett MD Status:ADM I N Location: [facility] [place] [id number] HPI - General General Date of Admission: 09/29/23 Date of Service: 09/29/23 Chief Complaint: Fall with Left Hip Fracture. HPI Narrative HSERRIE LOZANO, is a 88 F with a past medical history of essential hypertension, hyperlipidemia; with intolerance to statins, history of CAD; s/p stent, history of CHF; on Farxiga, history of arrhythmia on Amiodarone; s/p PPM/AICD, OA, legally blind and history of ICH; after fall (~6 weeks ago) with subsequent severe photosensitivity who presents to [facility] ERcomplaining of fall with Left hip fracture. Ms. Lozano reports her symptoms began approximately one hour prior to arrival when she lost her balance after her Left knee buckled and then gave out while she was using a walker to ambulate resulting in a mechanical fall with patient landing on her Left hip, elbow and forearm with LUE skin tears and subsequent inability to ambulate. Shedenies significant head trauma or LOC with her fall but she does admit to worsening pain with movement. She denies associated headache, chest pain, diaphoresis, nausea, vomiting, diaphoresis or other recent illness other than her ICH after a fall ~6 weeks ago; with subsequent photosensitivity. She typically ambulates with a cane. Both the patient and her recently moved her from [place], [place] since she grew up in [place], [place]. In the ER her X-rays were positive for a Left femoral neck fracture with clinical evidenceof Left lateral elbow skin tears x 2 and she was then admitted to the general medical floor for ongoing care for a stay that is expected to be greater than 48hours. [facility] Medical History Brain bleed CHF (congestive heart failure) Fall ICD (implantable cardioverter-defibrillator) in place Legally blind Pacemaker Presence of combination internal cardiac defibrillator (ICD) and pacemaker Home Medications amiodarone 100 mg tablet 100 mg PO DAILY heart failure 09/29/23 [History Last Taken 09/29/23] aspirin 81 mg tablet,delayed release 81 mg PO DAILY cardiac 09/29/23 [History Last Taken 09/29/23] dapagliflozin propanediol 10 mg tablet (Farxiga) 10 mg PO DAILY renal failure 09/29/23 [History Last Taken 09/29/23] furosemide 40 mg tablet 40 mg PO DAILY heart failure 09/29/23 [History Last Taken 09/29/23] magnesium sulfate 100 mg capsule 400 mg PO DAILY muscle cramps 09/29/23 [History Last Taken 09/29/23] metoprolol succinate 25 mg tablet,extended release 24 hr 12.5 mg PO DAILY BP 09/29/23 [History Last Taken 09/29/23] sacubitril 24 mg-valsartan 26 mg tablet (Entresto) 1 tab PO BID heart 09/29/23 [History Last Taken 09/29/23] Allergy/AdvReac Type Severity Reaction Status Date / Time Sfojral-OII-JbC Reductase AdvReac Mild muscle Verified 09/29/23 12:42 Inhibitor aches Surgical History Stented coronary artery Social History Smoking Status: Never smoker ROS ROS Narrative Review of systems: Constitutional: Patient denies fever or chills. Eyes: Patient admits to severe photosensitivity since her fall with ICH and sheis legally blind as per HPI but she denies acute visual changes or discharge from eyes. ENT: Patient denies runny nose, sore throat or ear pain. CV: Patient denies chest pain, palpitations or heart racing. Pulm: Patient denies SOB or cough. GI: Patient denies nausea, vomiting, diarrhea or constipation. MSK: Patient admits to Left hip pain made worse with movement as per HPI. Skin: Patient admits to skin tears x 2 to the Left lateral elbow. Neuro: Patient denies headache, paresthesias or photosensitivity. Hematology: Patient denies easy bleeding or easy bruisability. Allergy: Patient denies lip swelling, tongue swelling or urticaria. Psychology: Patient denies symptoms related to uncontrolled depression or anxiety. 14 point ROS otherwise negative except for positives noted above in HPI. Vital Signs Vital Signs Vital Signs: 09/29/23 12:46 09/29/23 12:49 Temperature 97.9 F Temperature Source Oral Pulse Rate 70 Respiratory Rate 16 Respiratory Effort Normal Non-Labored Respiratory Depth Normal Respiratory Pattern Normal Blood Pressure 156/68 H Blood Pressure Mean 97 Pulse Ox 94 Oxygen Delivery Method Room Air Weight Weight: 91 lb 0.815 oz Body Mass Index (BMI) 16.1 Physical Exam Const alert, oriented x3, no apparent distress, average body habitus and healthy appearing General Appearance: cooperative HEENT normocephalic, head/scalp atraumatic, hearing grossly normal bilaterally and moist oral mucous membranes Eyes PERRL and EOMs intact bilaterally Neck no lymphadenopathy and supple Resp normal respiratory effort, no retractions, no use of accessory muscles and clearto auscultation bilaterally Cardio regular rate and regular rhythm GI normal to inspection, nondistended, normoactive bowel sounds, soft to palpation,non-tender and non-distended Extremity normal to inspection and full ROM Skin Skin Narrative: Patient has a Left pelvic contusion and Left lateral elbow skin tears x 2. Neuro oriented x3, CN's II-XII intact bilaterally, moves all extremities and no focal motor deficits Sensorium / Orientation: awake, alert, oriented to person, oriented to place andoriented to time Speech: speech normal Motor Exam: strength 5/5 throughout Psych affect normal Results Medical Records Data Attestation: I reviewed the patient's medical records Lab / Micro Data Attestation: I reviewed the patient's lab results. 09/29/23 14:20 09/29/23 14:20 Imaging Radiology Impression Pelvis X-Ray 09/29/23 12:54 IMPRESSION: Left femoral neck fracture. Electronically Signed: Enrrique Carty MD at 13:16 EDT Reading Location ID and State: [address] [place] [address] , Service support , Assessment & Plan Assessment/Plan (1) Fracture of femoral neck, left, closed: QUALIFIERS: Encounter type: initial encounter Qualified Code(s): S72.002A - Fracture of unspecified part of neck of left femur, initial encounterfor closed fracture (2) Contusion of pelvic region: QUALIFIERS: Encounter type: initial encounter Qualified Code(s): S30.0XXA - Contusion of lower back and pelvis, initial encounter (3) ISTAP type 3 skin tear of left elbow: (4) Injury due to fall: QUALIFIERS: Encounter type: initial encounter Qualified Code(s): W19.XXXA - Unspecified fall, initial encounter (5) 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 Left Femoral Neck Fracture after Mechanical Fall with pelvic contusion and Left lateral elbow skin tears x 2 - Admit to general medical floor. Place Foleyand keep on strict bedrest. Give Tylenol prn for [id number]-dm-[id number] (level 1-5/10) pain or fever. Give Morphine IV prn for severe (level 6-10/10) pain. Give Flexeril 5 mg PO TID prn for muscle spasms. Finally, the orthopedic surgeon on-call has been contacted by the ED physician with ORIF planned for at 8:00 AM tomorrow with help appreciated in advance. 2. History of ICH; after fall (~6 weeks ago) with subsequent severe photosensitivity complicating #1 - Noted. We will avoid preoperative blood thinners to minimize risk of recurrence. 3. Essential Hypertension - Continue home regimen plus give prn IV hydralazine for systolic blood pressure > 160 mmHg. 4. Hyperlipidemia; with intolerance to statins - Check Lipid Profile. 5. History of CAD; s/p stent - Noted. 6. History of CHF - Stable with no evidence of acute flare at this time. 7. History of arrhythmia; s/p PPM/AICD - Stable. 8. OA - Stable. Give Tylenol prn. 9. DVT prophylaxis - We will avoid preoperative blood thinners in patient's with traumatic fracture due to increased risk of bleeding complications. SCD onRLE only. Postoperative DVT prophylaxis to be chosen by orthopod. Total time: Approximately 55 minutes. Charges/Coding Visit Charges Inpatient E&M: 77770 Init Hosp L2 09/29/23 1839 <Electronically signed by Mehdi Crespo DO> Cosigner Signature (if applicable): CC: Dr. Mehdi Crespo DO; Dr. Viet Lovett MD~ Signed [facility] Work Phone: 1(623) 662-350204-27-2024 Discharge summary Author Grant Whitley [facility] September 29, 2023 2:48pm Note Date/Time September 29, 2023 12: 49pm [facility] Medical Records Department [address] [place] [address] Emergency Department Summary 09/29/23 MR#: [id number] Acct: [id number] Name: SHERRIE LOZANO Rep #:[id number] : 1935 88 From: Grant Whitley MD PCP: Dr. Viet Lovett MD Status:ADM I N Location: [place] [address] HPI HPI - Fall History of Present Illness Chief Complaint: Fall Detail of Chief Complaint: Mechanical fall with injury to left elbow/forearm andcomplains of pain pel Informant: patient Occured/Mechanism Occurred: Hours Mechanism/Context: Yes trip Usually ambulates: Cane Pain/Injury Location: Pelvis Quality of Pain: Dull and Aching Current Severity: Mild Maximum Severity: Mild Worsened by: Slightly worse with palpation Relieved by: Nothing Associated Symptoms Associated Symptoms: Negative for Parasthesias, Weakness, Loss of function, Inability to ambulate, Loss of consciousness or Amnesia Narrative Narrative: Patient is 88-year-old woman. She and her recently moved from [place]. She grew up in [place]. They are returning to a assisted living facility. She states she did not hit her head. She denies neck pain. She denies left or right upper extremity pain. She denies pain in her right ankle, knee or hip. She denies headache. Denies visual, ocular auditory symptoms. She denies cardiac or respiratory symptoms. Tetanus Immunization: Unknown Prior similar symptoms: No Recent Illness/Hospitalization: No PFSH PFSH Medical History (Updated 09/29/23 @ 13:[address] Grant Whitley MD) Brain bleed CHF (congestive heart failure) Fall Presence of combination internal cardiac defibrillator (ICD) and pacemaker Allergy/AdvReac Type Severity Reaction Status Date / Time [id number] Reductase AdvReac Mild muscle Verified 09/29/23 12:42 Inhibitor aches Surgical History (Updated 09/29/23 @ 12:43 by Vania Hines) Stented coronary artery Social History Smoking Status: Never smoker ROS ROS ED Constitutional Constitutional ED: Denies chills or fever(s) Eyes Eyes: Denies blurry vision, change in vision or diplopia Cardiovascular Cardiovascular: Denies chest pain Respiratory/Chest Respiratory/Chest: Denies dyspnea Gastrointestinal Gastrointestinal: Denies nausea or vomiting Musculoskeletal Musculoskeletal: Denies back pain or neck pain Integumentary Reports other Details: Skin tear x 2 lateral left elbow. Neurologic Neurologic: Denies paresthesias or weakness Hematologic/Lymphatic Hematologic/Lymphatic: Denies easy bleeding or easy bruising EXAM Physical Exam Const Vital Signs: 09/29/23 12:46 09/29/23 12:49 Temperature 97.9 F Temperature Source Oral Pulse Rate 70 Respiratory Rate 16 Respiratory Effort Normal Non-Labored Respiratory Depth Normal Respiratory Pattern Normal Blood Pressure 156/68 H Blood Pressure Mean 97 Pulse Ox 94 Oxygen Delivery Method Room Air Positive well nourished and well developed General Appearance ED: well developed and NAD HEENT Reports normocephalic and TM's normal bilaterally atraumatic Eyes PERRL and EOMs intact bilaterally General Eye ED: Negative for pale conjunctiva or scleral icterus Neck full ROM and no lymphadenopathy Chest Wall inspection of chest normal Resp normal respiratory effort, no retractions and clear to auscultation bilaterally Cardio regular rate, regular rhythm, S1 normal heart sound, S2 normal heart sound and no murmurs Extremity Extremity Narrative: Skin tear that is 3 cm in diameter and 3.5 cm in diameter. The skin was unrolled and covered the defect. Nurse will apply appropriate dressing. Neuro oriented x3, CN's II-XII intact bilaterally, moves all extremities, no focal motor deficits and no sensory deficits noted Neuro Narrative: Patient has no clonus or Babinski sign. Renee Coma Scale: document GCS findings Spontaneous Obeys Commands Oriented 15 Sensorium / Orientation: alert Psych mental status grossly normal and thought process normal Skin Skin Narrative: Skin tear previously documented. MDM MDM MDM Narrative Medical decision making narrative: Will obtain x-ray of the pelvis and she has pain outpatient over the pubic symphysis region. There is no pain with logrolling of the right or left lower extremity. Tetanus was updated. Radiography Chest X-Ray - ED: 1 View and Read by ED Physician (Independently reviewed interpreted by me as negative for fracture. The femoral neck appears normal as well.) Discharge Plan Triage Chief Complaint: Fall ED Provider: Grant Whitley Dx/Rx/DC Orders Clinical Impression: Injury due to fall, ISTAP type 3 skin tear of left elbow, Contusion of pelvic region Instructions: Bruises (Contusions), ED Skin Tear (Skin Avulsion) Primary Care Provider: NOT,DEFINED Referrals: Viet Lovett MD [Non-Staff] - 3-5 Days NOT,DEFINED [Primary Care Provider] - Disposition Disposition: Home, Self Care What to do if you have Problems For any increased pain, shortness of breath, bleeding, nausea or vomiting, chestpain, or any unexpected problems, contact your Primary Care Provider. Call [facility] ([phone]) or report to the closest Emergency Room. Call 911 if necessary. 09/29/23 1311 <Electronically signed by Grant Whitley MD> Cosigner Signature (if applicable): CC: Dr. Viet Lovett MD ~ Signed ADDENDUM by Dr. Grant Whitley MD on 09/29/23 at 1338 Prior to discharge radiology report was read. Patient has a femoral neck fracture on the left. Patient was reexamined. The left lower extremity is shortened and externally rotated consistent with a femoral neck fracture. Formal films were obtained. Blood work was obtained for preoperative restratification. Patient was informed that she will require admission. Will contact orthopedic on-call Dr. Amol Yoder and hospitalist. 09/29/23 1338<Electronically signed by Grant Whitley MD> Cosigner Signature (if applicable): cc: Dr. Viet Lovett MD ~* Signed ADDENDUM by Dr. Grant Whitley MD on 09/29/23 at 1350 Patient does have known coronary artery disease. She does have stents. She wason blood thinner per family member. This was discontinued because she had a traumatic hemorrhage after a fall. She is presently on a baby aspirin. Family over is contacting someone to get list of her meds. 09/29/23 1350<Electronically signed by Grant Whitley MD> Cosigner Signature (if applicable): cc: Dr. Viet Lovett MD ~* Signed ADDENDUM by Dr. Grant Whitley MD on 09/29/23 at 1448 Single view portable chest x-ray reveals cardiomegaly and chronic changes. Patient has a pacemaker/AICD in place left subclavian region. There is no acuteprocess noted. This is independent reviewed interpreted by me at 1448. Three-view x-ray of the left hip reveals a Bowman type IV femoral neck fracture. This was independent reviewed interpreted by me at 1448. 09/29/23 1448<Electronically signed by Grant Whitley MD> Cosigner Signature (if applicable): cc: Dr. Viet Lovett MD ~* Signed [facility] Work Phone: 1(437) 103-579304-27-2024 Discharge summary Author Grant Whitley [facility] September 29, 2023 2:48pm Note Date/Time September 29, 2023 12: 49pm [facility] Medical Records Department [address] [place] [address] Emergency Department Summary 09/29/23 MR#: [id number] Acct: [id number] Name: SHERRIE LOZANO Rep #:[id number] : 1935 88 From: Grant Whitley MD PCP: Dr. Viet Lovett MD Status:ADM I N Location: [facility] FB593-6 HPI HPI - Fall History of Present Illness Chief Complaint: Fall Detail of Chief Complaint: Mechanical fall with injury to left elbow/forearm andcomplains of pain pel Informant: patient Occured/Mechanism Occurred: Hours Mechanism/Context: Yes trip Usually ambulates: Cane Pain/Injury Location: Pelvis Quality of Pain: Dull and Aching Current Severity: Mild Maximum Severity: Mild Worsened by: Slightly worse with palpation Relieved by: Nothing Associated Symptoms Associated Symptoms: Negative for Parasthesias, Weakness, Loss of function, Inability to ambulate, Loss of consciousness or Amnesia Narrative Narrative: Patient is 88-year-old woman. She and her recently moved from [place]. She grew up in [place]. They are returning to a assisted living facility. She states she did not hit her head. She denies neck pain. She denies left or right upper extremity pain. She denies pain in her right ankle, knee or hip. She denies headache. Denies visual, ocular auditory symptoms. She denies cardiac or respiratory symptoms. Tetanus Immunization: Unknown Prior similar symptoms: No Recent Illness/Hospitalization: No PFSH PFSH Medical History (Updated 09/29/23 @ 13:[address] Grant Whitley MD) Brain bleed CHF (congestive heart failure) Fall Presence of combination internal cardiac defibrillator (ICD) and pacemaker Allergy/AdvReac Type Severity Reaction Status Date / Time Ycijzca-[id number] Reductase AdvReac Mild muscle Verified 09/29/23 12:42 Inhibitor aches Surgical History (Updated 09/29/23 @ 12:43 by Vania Hines) Stented coronary artery Social History Smoking Status: Never smoker ROS ROS ED Constitutional Constitutional ED: Denies chills or fever(s) Eyes Eyes: Denies blurry vision, change in vision or diplopia Cardiovascular Cardiovascular: Denies chest pain Respiratory/Chest Respiratory/Chest: Denies dyspnea Gastrointestinal Gastrointestinal: Denies nausea or vomiting Musculoskeletal Musculoskeletal: Denies back pain or neck pain Integumentary Reports other Details: Skin tear x 2 lateral left elbow. Neurologic Neurologic: Denies paresthesias or weakness Hematologic/Lymphatic Hematologic/Lymphatic: Denies easy bleeding or easy bruising EXAM Physical Exam Const Vital Signs: 09/29/23 12:46 09/29/23 12:49 Temperature 97.9 F Temperature Source Oral Pulse Rate 70 Respiratory Rate 16 Respiratory Effort Normal Non-Labored Respiratory Depth Normal Respiratory Pattern Normal Blood Pressure 156/68 H Blood Pressure Mean 97 Pulse Ox 94 Oxygen Delivery Method Room Air Positive well nourished and well developed General Appearance ED: well developed and NAD HEENT Reports normocephalic and TM's normal bilaterally atraumatic Eyes PERRL and EOMs intact bilaterally General Eye ED: Negative for pale conjunctiva or scleral icterus Neck full ROM and no lymphadenopathy Chest Wall inspection of chest normal Resp normal respiratory effort, no retractions and clear to auscultation bilaterally Cardio regular rate, regular rhythm, S1 normal heart sound, S2 normal heart sound and no murmurs Extremity Extremity Narrative: Skin tear that is 3 cm in diameter and 3.5 cm in diameter. The skin was unrolled and covered the defect. Nurse will apply appropriate dressing. Neuro oriented x3, CN's II-XII intact bilaterally, moves all extremities, no focal motor deficits and no sensory deficits noted Neuro Narrative: Patient has no clonus or Babinski sign. Renee Coma Scale: document GCS findings Spontaneous Obeys Commands Oriented 15 Sensorium / Orientation: alert Psych mental status grossly normal and thought process normal Skin Skin Narrative: Skin tear previously documented. MDM MDM MDM Narrative Medical decision making narrative: Will obtain x-ray of the pelvis and she has pain outpatient over the pubic symphysis region. There is no pain with logrolling of the right or left lower extremity. Tetanus was updated. Radiography Chest X-Ray - ED: 1 View and Read by ED Physician (Independently reviewed interpreted by me as negative for fracture. The femoral neck appears normal as well.) Discharge Plan Triage Chief Complaint: Fall ED Provider: Grant Whitley Dx/Rx/DC Orders Clinical Impression: Injury due to fall, ISTAP type 3 skin tear of left elbow, Contusion of pelvic region Instructions: Bruises (Contusions), ED Skin Tear (Skin Avulsion) Primary Care Provider: NOT,DEFINED Referrals: Viet Lovett MD [Non-Staff] - 3-5 Days NOT,DEFINED [Primary Care Provider] - Disposition Disposition: Home, Self Care What to do if you have Problems For any increased pain, shortness of breath, bleeding, nausea or vomiting, chestpain, or any unexpected problems, contact your Primary Care Provider. Call [employer] [facility] ([phone]) or report to the closest Emergency Room. Call 911 if necessary. 09/29/23 1311 <Electronically signed by Grant Whitley MD> Cosigner Signature (if applicable): CC: Dr. Viet Lovett MD ~ Signed ADDENDUM by Dr. Grant Whitley MD on 09/29/23 at 1338 Prior to discharge radiology report was read. Patient has a femoral neck fracture on the left. Patient was reexamined. The left lower extremity is shortened and externally rotated consistent with a femoral neck fracture. Formal films were obtained. Blood work was obtained for preoperative restratification. Patient was informed that she will require admission. Will contact orthopedic on-call Dr. Amol Yoder and hospitalist. 09/29/23 1338<Electronically signed by Grant Whitley MD> Cosigner Signature (if applicable): cc: Dr. Viet Lovett MD ~* Signed ADDENDUM by Dr. Grant Whitley MD on 09/29/23 at 1350 Patient does have known coronary artery disease. She does have stents. She wason blood thinner per family member. This was discontinued because she had a traumatic hemorrhage after a fall. She is presently on a baby aspirin. Family over is contacting someone to get list of her meds. 09/29/23 1350<Electronically signed by Grant Whitley MD> Cosigner Signature (if applicable): cc: Dr. Viet Lovett MD ~* Signed ADDENDUM by Dr. Grant Whitley MD on 09/29/23 at 1448 Single view portable chest x-ray reveals cardiomegaly and chronic changes. Patient has a pacemaker/AICD in place left subclavian region. There is no acuteprocess noted. This is independent reviewed interpreted by me at 1448. Three-view x-ray of the left hip reveals a Bowman type IV femoral neck fracture. This was independent reviewed interpreted by me at 1448. 09/29/23 1448<Electronically signed by Grant Whitley MD> Cosigner Signature (if applicable): cc: Dr. Viet Lovett MD ~* Signed [facility] Work Phone: Evaluation note* Diagnosis Onset Date Resolution Status Contusion of pelvic region a cute Fracture of femoral neck, left, closed acute Injury due to fall acute ISTAP type 3 skin tear of left elbow acute [facility] Work Phone: Evaluation note* Diagnosis Onset Date Resolution Status Contusion of pelvic region a cute Debility acute Fracture of femoral neck, closed acute Fracture of femoral neck, left, closed acute History of CHF (congestive heart failure) acute History of intracerebral hem orrhage without residual deficit acute Injury due to fall acute ISTAP type 3 skin tear of left elbow acute Presence of combination inte rnal cardiac defibrillator (ICD) and pacemaker acute S/P hip hemiarthroplasty acu te [facility] Work Phone: Reason for referral (narrative)No reason for referral information [facility] Work Phone: Chief Complaint and Reason for Visit Chief Complaint LEFT FEMORAL NECK FR ACTURE AFTER MECHANICAL FALL Reason for Visit Contusion of pelvic region Fracture of femoral neck, left, closed Injury due to fall ISTAP type 3 skin tear of left elbow Chief Complaint LEFT FEMORAL NECK FR ACTURE AFTER MECHANICAL FALL. LEFT FEMORAL NECK FRACTURE AFTER MECHANICAL FALL LEFT FEMORAL NECK FRACTURE AFTER MECHANICAL FALL LEFT FEMORAL NECK FRACTURE AFTER MECHANICAL FALL. LEFT FEMORAL NECK FRACTURE AFTER MECHANICAL FALL. LEFT FEMORAL NECK FRACTURE AFTER MECHANICAL FALL. LEFT FEMORAL NECK FRACTURE AFTER MECHANICAL FALL. LEFT FEMORAL NECK FRACTURE AFTER MECHANICAL FALL. LEFT FEMORAL NECK FRACTURE AFTER MECHANICAL FALL. LEFT FEMORAL NECK FRACTURE AFTER MECHANICAL FALL. LEFT FEMORAL NECK FRACTURE AFTER MECHANICAL FALL. LEFT FEMORAL NECK FRACTURE AFTER MECHANICAL FALL. LEFT FEMORAL NECK FRACTURE AFTER MECHANICAL FALL. 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 Chief Complaint Admit Date LABWORK May 07, 2024 5 :10am PENITENTIARY LAB WORK May 15 5:00am PENITENTIARY LAB WORK June 06, 2024 5:00am MONTHLY EXAM June 17, 2024 4 :00pm ESTABLISH ([facility]) June 18, 2024 1 :04pm NEW CONCERN June 24, 2024 9 :42am PENITENTIARY LAB WORK June 26, 2024 5:00am Pacer Check Remote July 09, 2024 9 :00am NEW ENROLEE ([facility]) July 09, 2024 10:48am MONTHLY EXAM July 31, 2024 9:35am MONTHLY EXAM August 12, 2024 3:1 5pm PENITENTIARY LAB WORK August 13, 2024 5 :00am PENITENTIARY LAB WORK August 13, 2024 6 :30am Pacer Check Remote August 17, 2024 3:1 3am Reason for Visit Admit Date CHF (congestive heart failure) June 042024 1:04pm Essential (primary) hypertension June 18, 2024 1:04pm Hyperlipidemia June 18, 2024 1 :04pm Ischemic cardiomyopathy June 18 1:04pm Presence of combination inte rnal cardiac defibrillator (ICD) and pacemaker June 18, 2024 1:04pm Stented coronary artery June 18 1:04pm CHF (congestive heart failure) July 09, 2024 10:48am ICD (implantable cardioverter-defibrilla tor) in place July 09, 2024 10:48am Ischemic cardiomyopathy July 09 10:48am Chief Complaint Admit Date Pacer Check Remote July 09, 2024 9 :00am NEW ENROLEE (SCANNED) July 09, 2024 10:48am MONTHLY EXAM July 31, 2024 9:35am MONTHLY EXAM August 12, 2024 3:1 5pm PENITENTIARY LAB WORK August 13, 2024 5 :00am PENITENTIARY LAB WORK August 13, 2024 6 :30am Pacer Check Remote August 17, 2024 3:1 3am MONTHLY NOTE September 02, 2024 3:42 pm LABWORK October 08, 2024 5:00am Reason for Visit Admit Date CHF (congestive heart failure) July 09, 2024 10:48am ICD (implantable cardioverter-defibrilla tor) in place July 09, 2024 10:48am Ischemic cardiomyopathy July 09 10:48am Advance Directives No Advanced Directives Records Found Advance Directive Response Recorded Date/ Time Living Will Yes September 29, 2023 12:43pm Power of Route Returner Yes September 28 12:43pm Name of Medical Power of Route Returner , Archana de la cruz September 29, 2023 12:43pm Advance Directive Response Recorded Date/ Time Name of Medical Power of Route Returner Archana bullard September 29, 2023 3:25pm Living Will Yes September 29, 2023 3:25pm Power of Route Returner Yes September 28 3:25pm Summary Purpose Family History No Family History Records Found Additional Source Comments Care Teams (unrecognized sec tion and content) Team Status: Active Member Role Status Dates Dr. Viet Lovett MD Primary Care Provider Active Team Status: Active Member Role Status Dates Dr. Grant Whitley MD Emergency Provider Active Dr. Viet Lovett MD Primary Care Provider Active Dr. Mehdi Crespo DO Admit Provider, Attending Pr ovider Active Team Status: Active Member Role Status Dates Dr. Grant Whitley MD Emergency Provider Active Dr. Viet Loevtt MD Primary Care Provider Active Dr. Mehdi Crespo DO Admit Provider, Other Provid er Active Dr. Anson Waite MD Referring Provider, Other Provi johanne Active Dr. Amol Yoder DO Attending Provider Active Team Status: Active Member Role Status Dates Dr. Grant Whitley MD Emergency Provider Active Dr. Viet Lovett MD Primary Care Provider Active Dr. Mehdi Crespo DO Admit Provider, Other Provid er Active Dr. Anson Waite MD Attending Provider, Other Provi johanne Active Team Status: Active Member Role Status Dates Dr. Grant Whitley MD Emergency Provider Active Dr. Viet Lovett MD Primary Care Provider Active Dr. Mehdi Crespo DO Admit Provider, Other Provid er Active Dr. Anson Waite MD Other Provider Active Dr. mAol Yoder DO Attending Provider, Other Prov ider Active Team Status: Active Member Role Status Dates Dr. Viet Lovett MD Primary Care Provider Active Dr. Stas Wilson MD Attending Provider Activ e Team Status: Active Member Role Status Dates Dr. Grant Whitley MD Emergency Provider Active Dr. Viet Lovett MD Primary Care Provider Active Dr. Mehdi Crespo DO Admit Provider, Other Provid er Active Dr. Anson Waite MD Attending Provider, Other Provi johanne Active Dr. Amol Yoder DO Other Provider Active Team Status: Active Member Role Status Dates Dr. Grant Whitley MD Emergency Provider Active Dr. Viet Lovett MD Primary Care Provider Active Dr. Mehdi Crespo , DO Admit Provider, Other Provid er Active Dr. Amol Yoder , DO Other Provider Active Dr. Joon Yuen , DO Attending Provider, Other Provider Active Dr. Anson Waite MD Other Provider Active Team Status: Active Member Role Status Dates Dr. Grant Whitley MD Emergency Provider Active Dr. Viet Lovett MD Primary Care Provider Active Dr. Mehdi Crespo , DO Admit Provider, Other Provid er Active Dr. Amol Yoder , DO Other Provider Active Dr. Anson Waite MD Other Provider Active Dr. Tammi Frost , DO Attending Provider, Other Provide r Active Dr. Joon Yuen , DO Other Provider Active Team Status: Inactive Member Role Status Dates Dr. Grant Whitley MD Emergency Provider Active Dr. Viet Lovett MD Primary Care Provider Active Dr. Mehdi Crespo , DO Admit Provider, Other Provid er Active Dr. Amol Yoder , DO Other Provider Active Dr. Anson Waite MD Other Provider Active Dr. Tammi Frost , DO Attending Provider Active Dr. Joon Yuen , DO Other Provider Active Team Status: Active Member Role Status Dates Dr. Sharif Ramos MD Primary Care Provider Active Team Status: Inactive Member Role Status Dates Dr. Veit Lovett MD Primary Care Provider Active Start: May 07, 2024 End: May 07, 2024 Sharif CARRENO MD Attending Provider Active Start: May 07, 2024 End: May 07, 2024 Team Status: Inactive Member Role Status Dates Sharif CARRENO MD Primary Care Provider Active Start: May 15, 2024 End: May 15, 2024 Sharif CARRENO MD Attending Provider Active Start: May 15, 2024 End: May 15, 2024 Team Status: Active Member Role Status Dates Sharif CARRENO MD Primary Care Provider Active Start: June 06, 2024 Sharif CARRENO MD Attending Provider Active Start: June 06, 2024 Team Status: Inactive Member Role Status Dates Sharif CARRENO MD Primary Care Provider Active Start: June 17, 2024 End: June 17, 2024 Dr. Sharif Ramos MD Attending Provider Active Start: June 17, 2024 End: June 17, 2024 Team Status: Inactive Member Role Status Dates Sharif CARRENO MD Primary Care Provider Active Start: June 18, 2024 End: June 18, 2024 Sharif CARRENO MD Referring Provider Active Start: June 18, 2024 End: June 18, 2024 Dr. Andrea Hawthorne MD Attending Provider Active S tart: June 18, 2024 End: June 18, 2024 Team Status: Inactive Member Role Status Dates Sharif CARRENO MD Primary Care Provider Active Start: June 24, 2024 End: June 24, 2024 Lashae Garner ACCESS DEVELOPER, ACCESS DEVELOPER-C Attending Provider Active Start: June 24, 2024 End: June 24, 2024 Team Status: Active Member Role Status Dates Sharif CARRENO MD Primary Care Provider Active Start: June 26, 2024 Sharif CARRENO MD Attending Provider Active Start: June 26, 2024 Team Status: Inactive Member Role Status Dates Sharif CARRENO MD Primary Care Provider Active Start: July 09, 2024 End: July 09, 2024 Dr. Andrea Hawthorne MD Attending Provider Active S tart: July 09, 2024 End: July 09, 2024 Team Status: Inactive Member Role Status Dates Dr. Sharif Ramos MD Primary Care Provider Active Start: July 09, 2024 End: July 09, 2024 Dr. Andrea Hawthorne MD Attending Provider Active S tart: July 09, 2024 End: July 09, 2024 Dr. Andrea Hawthorne MD Referring Provider Active S tart: July 09, 2024 End: July 09, 2024 Team Status: Inactive Member Role Status Dates Dr. Sharif Ramos MD Primary Care Provider Active Start: July 31, 2024 End: July 31, 2024 ANA CRISTINA Camacho Attending Provider Active St art: July 31, 2024 End: July 31, 2024 Team Status: Inactive Member Role Status Dates Dr. Sharif Ramos MD Primary Care Provider Active Start: August 12, 2024 End: August 12, 2024 Dr. Sharif Ramos MD Attending Provider Active Start: August 12, 2024 End: August 12, 2024 Team Status: Inactive Member Role Status Dates Dr. Sharif Ramos MD Primary Care Provider Active Start: August 13, 2024 End: August 13, 2024 Sharif CARRENO MD Attending Provider Active Start: August 13, 2024 End: August 13, 2024 Team Status: Active Member Role Status Dates Dr. Sharif Ramos MD Primary Care Provider Active Start: August 13, 2024 Sharif CARRENO MD Attending Provider Active Start: August 13, 2024 Sharif CARRENO MD Referring Provider Active Start: August 13, 2024 Team Status: Inactive Member Role Status Dates Dr. Sharif Ramos MD Primary Care Provider Active Start: August 17, 2024 End: August 17, 2024 Dr. Andrea Hawthorne MD Attending Provider Active S tart: August 17, 2024 End: August 17, 2024 Dr. Andrea Hawthorne MD Referring Provider Active S tart: August 17, 2024 End: August 17, 2024 Team Status: Inactive Member Role Status Dates Dr. Sharif Ramos MD Primary Care Provider Active Start: August 13, 2024 End: August 13, 2024 Sharif CARRENO MD Attending Provider Active Start: August 13, 2024 End: August 13, 2024 Sharif CARRENO MD Referring Provider Active Start: August 13, 2024 End: August 13, 2024 Team Status: Inactive Member Role Status Dates Dr. Sharif Ramos MD Primary Care Provider Active Start: September 02, 2024 End: September 02, 2024 Lashae Garner NP, ACCESS DEVELOPER-C Attending Provider Active Start: September 02, 2024 End: September 02, 2024 Team Status: Inactive Member Role Status Dates Dr. Sharif Ramos MD Primary Care Provider Active Start: October 08, 2024 End: October 08, 2024 Sharif CARRENO MD Attending Provider Active Start: October 08, 2024 End: October 08, 2024 Goals (unrecognized section and content) Goals may be documented in a n alternate sectionGoals may be documented in an alternate sectionGoals may be documented in an alternate sectionGoals may be documented in an alternate section INFORMATION SOURCE (unrecogn ized section and content) DATE CREATED AUTHOR 11/02/2024 [facility] FOR RECORDS PERTAINING TO PATIENTS WHO ARE OR HAVE BEEN ENROLLED IN A CHEMICAL DEPENDENCY/SUBSTANCEABUSE PROGRAM, SOME INFORMATION MAY BE OMITTED. This clinical summary was aggregated from multiple sources. Caution should be exercised in using it in the provision of clinical care. This summary normalizes information from multiple sources, and as a consequence, information in this document may materially change the coding, format and clinical context of patient data. In addition, data may be omitted in some cases. CLINICAL DECISIONS SHOULD BE BASED ON THE PRIMARY CLINICAL RECORDS. [facility] [employer] [facility]. provides no warranty or guarantee of the accuracy or completeness of information in this document.
--- OUTSIDE RECORDS SUMMARY | 2024-11-05 04:11 | XMS RPT_ITS | CCD ---
Author Organization [facility] Care Team Providers Care Senior Assistant Manager Name Role Phone Dr. Grant Whitley Emergency Provider Dr. Viet Lovett Primary Care Provider Dr. Mehdi Crespo Admit Provider Unavailabl e Dr. Mehdi [...] MD, Sharif Referring Provider Unavaila bailee Garner BLOOD BANK BUSINESS MANAGER-C, Lashae Attending Provider Oleghe OLS, Efewongbe Attending Unavailabl e [place], Viet Primary Care Unavailable Oleghe OLS, Efewongbe Attending Unavailabl e [place], Viet Primary Care Unavailable Oleghe OLS, Efewongbe Attending Unavailabl e [place], Viet Primary Care Unavailable [place] BLOOD BANK BUSINESS MANAGER, Lashae Attending Unavailable Rachell, Viet Primary Care Unavailable Oleghe OLS, Efewongbe Attending Unavailabl e [place], Viet Primary Care Unavailable Oleghe OLS, Efewongbe Attending Unavailabl e Oleghe OLS, Efewongbe Primary Care Unavailabl e Oleghe OLS, Efewongbe Attending Unavailabl e Rachell, Viet Primary Care Unavailable Oleghe OLS, Efewongbe Attending Unavailabl e Rachell, Viet Primary Care Unavailable [place] BLOOD BANK BUSINESS MANAGER, Lashae Attending Unavailable Oleghe OLS, Efewongbe Primary Care Unavailabl e Oleghe, Efewongbe Primary Care Unavailable [place] BLOOD BANK BUSINESS MANAGER, Lashae Attending Unavailable Oleghe OLS, Efewongbe Attending Unavailabl e [place], Viet Primary Care Unavailable Oleghe OLS, Efewongbe [...] e Oleghe OLS, Efewongbe Referring Unavailabl e [facility] Primary Care Unavailable Oleghe OLS, Efewongbe Primary Care Unavailabl e Jamar Isabel Attending Unavailable Oleghe, Efewongbe Attending Unavailable [facility] Primary Care Unavailable [place] BLOOD BANK BUSINESS MANAGERLashae Attending Unavailable [facility] Primary Care Unavailable Oleghe, Efewongbe Attending Unavailable [facility] Primary Care Unavailable Oleghe OLS, Efewongbe Attending Unavailabl e Oleghe OLS, Efewongbe Primary Care Unavailabl e Oleghe OLS, Efewongbe Attending Unavailabl e Oleghe OLS, Efewongbe Primary Care Unavailabl e Oleghe OLS, Efewongbe Attending Unavailabl e Oleghe OLS, Efewongbe Referring Unavailabl e Oleghe, Efewongbe Primary Care Unavailable Oleghe OLS, Efewongbe Attending Unavailabl e [facility] Primary Care Unavailable Oleghe OLS, Efewongbe Primary Care Unavailabl e Lashae Garner NP Attending Unavailable Oleghe, Efewongbe Primary Care Unavailable Jamar Isabel Attending Unavailable Oleghe OLS, Efewongbe Primary Care Unavailabl e Oleghe, Efewongbe Attending Unavailable Oleghe OLS, Efewongbe Primary Care Unavailabl e [place] BLOOD BANK BUSINESS MANAGER, Lashae Attending Unavailable [place], [place] Attending Unavailable Oleghe OLS, Efewongbe Primary Care Unavailabl e Marine, Andrea Referring Unavailable [place], [place] Attending Unavailable Oleghe, Efewongbe Primary Care Unavailable Oleghe, Efewongbe Attending Unavailable Oleghe OLS, Efewongbe Primary Care Unavailabl e Oleghe, Efewongbe Primary Care Unavailable Oleghe, Efewongbe Attending Unavailable [place], [place] Referring Unavailable [place], [place] Attending Unavailable Oleghe, Efewongbe Primary Care Unavailable Oleghe OLS, Efewongbe Referring Unavailabl e Marine, Andrea Attending Unavailable Oleghe OLS, Efewongbe Primary Care Unavailabl e Oleghe OLS, Efewongbe Attending Unavailabl e [facility] Primary Care Unavailable Allergies Allergy Classification Reported Allergen(s) Allergy Type Date of Onset Reaction(s) Facility (5 sources) Lrbwcno-Bpc-Mou Reductase Inhibitor Propensity to adverse reactions 4 muscle aches [facility] (1 source) Aczvmza-Swc-Pbn Reductase Inhibitor Drug allergy (disorder) 5 [facility] Repository Medications Current Medications Medication Drug Class(es) [...] 1:00am docusate sodium 50 mg / sennosides, retirement 8.6 mg oral tablet (4 sources) Start: [...] 09-29-2023 Chronic Comment on above: [facility]-O ICM; NOT MRI compatible Congestive heart failure; nonhypertensive (10 sources) Congestive heart failure; Translations: [Heart failure, unspecified] Onset: 08-05-2024 06-09-2024 Chronic Coronary atherosclerosis and other heart disease (13 sources) Coronary arteriosclerosis; Translations: [Atherosclerotic heart disease of [place] coronary artery without angina pectoris] Onset: 07-08-2024 [...] Magnesium (Unsp spec) [Mass/Vol] 2.2 mg/dL 1.5-2.2 [facility] TSH DL <= 0.005 mIU/L QnOrde red By: Sharif Ramos on 10-08-2024 TSH Qn 1.270 uIU/mL 0.300-4.200 [facility] Absolute lymphocyte countOrd ered By: Sharif Ramos on 08-13-2024 Lymphocytes Auto (Unsp spec) [#/Vol] 1.27 10*3/uL 0.83-4.51 [facility] Absolute neutrophil countOrd ered By: Sharif Ramos on 08-13-2024 Neutrophils (Bld) [#/Vol] 2.4 10*3/uL 2.0-7.7 [facility] Anion gap in Serum or Plasma Ordered By: Sharif Ramos on 08-13-2024 Anion gap [Moles/Vol] 12 mmol/L 5-15 [facility] Automated lymphocyte count a s percentage of total leukocytesOrdered By: Sharif Ramos on 08-13-2024 Lymphocytes/100 WBC Auto (Unsp spec) 29.1 % 19-41 [facility] BUN/creatinine ratioOrdered By: Sharif Ramos on 08-13-2024 Urea nitrogen/Creatinine [Mass ratio] 27.5 mg/mg High 10-20 [facility] Basophil percentageOrdered B y: Sharif Ramos on 08-13-2024 Basophils/100 WBC (Bld) 0.5 % 0-1 [facility] Bilirubin Test strip Ql (U)O rdered By: Cristinarichie Randallroxannagregg on 08-13-2024 Bilirubin Ql (U) Negative Negative [facility] Bilirubin, totalOrdered By: Sharif Randallroxannagregg on 08-13-2024 Bilirubin [Mass/Vol] 0.41 mg/dL 0.00-1.30 [facility] Carbon dioxide, total [Moles /volume] in Central venous bloodOrdered By: Snowshahram Randallroxannagregg on 08-13-2024 CO2 [Moles/Vol] 23.4 mmol/L 21.0-32.0 [facility] Chloride assayOrdered By: Cristina richie Randallroxannagregg on 08-13-2024 Chloride [Moles/Vol] 117 mmol/L High 98-108 [facility] Eosinophil percentageOrdered By: Sharif Ramos on 08-13-2024 Eosinophils/100 WBC (Bld) 7.8 % High 0-5 [facility] Erythrocyte distribution wid th (RBC) [Ratio]Ordered By: Sharif Pagangregg on 08-13-2024 Erythrocyte distribution width (RBC) [Entitic vol] 45.1 fL High 35.1-43.9 [facility] Erythrocyte distribution wid th ratioOrdered By: Cristinarichie Randallroxannagregg on 08-13-2024 Erythrocyte distribution width (RBC) [Ratio] 12.8 % 11.6-14.6 [facility] Erythrocyte distribution wid th standard deviationOrdered By: Sharif Pagangregg on 08-13-2024 Erythrocyte distribution width (RBC) [Ratio] 45.1 fl High 35.1-43.9 [facility] GFR/1.73 sq M.predicted lisbet g non-blacks MDRD (S/P/Bld) [Vol rate/Area]Ordered By: Sharif Ramos on 08-13-2024 Estimated GFR (MDRD) Non-Af Amer 52 Low >60 [facility] Comment on above: mL/min/1.73m2 CKD-EP I Creatinine Equation (2020) Glomerular filtration rate ( GFR) estimation/1.73 sq m using serum, plasma, or whole bOrdered By: Sharif Ramos on 08-13-2024 GFR/1.73 sq M.predicted among non-blacks MDRD (S/P/Bld) [Vol rate/Area] 52 mL/min/{1.73_m2} Low >60 [facility] Comment on above: mL/min/1.73m2 CKD-EP I Creatinine Equation (2020) Glucose Ql (U)Ordered By: Cristina Ramos on 08-13-2024 Glucose (U) [Mass/Vol] 1000 mg/dL High Normal [facility] Hematocrit Auto (Bld) [Volum e fraction]Ordered By: Sharif Ramos on 08-13-2024 Hematocrit (Bld) [Volume fraction] 35.9 % Low 37-47 [facility] Hemoglobin measurementOrdere d By: Sharif Ramos on 08-13-2024 Hemoglobin (Bld) [Mass/Vol] 11.8 g/dL Low 12.0-15.0 [facility] Immature granulocytes/100 WB C Auto (Bld)Ordered By: Sharif Ramos on 08-13-2024 Immature granulocytes/100 WBC (Bld) 0.200 % 0.0-0.9 [facility] Comment on above: IG% - Immature Granu locytes (promyelocytes, myelocytes and metamyelocytes) > 1% indicates that a LEFT SHIFT is Present. Ketones Test strip Ql (U)Ord ered By: Sharif Ramos on 08-13-2024 Ketones Ql (U) Negative Negative [facility] Laboratory - Chemistry and C hemistry - challengeOrdered By: Sharif Ramos on 08-13-2024 AST [Catalytic activity/Vol] 16 U/L <32 [facility] Lymphocytes Auto (Unsp spec) [#/Vol]Ordered By: Sharif Ramos on 08-13-2024 Lymphocytes (Bld) [#/Vol] 1.27 10*3/uL 0.83-4.51 [facility] Lymphocytes/100 WBC Auto (Un sp spec)Ordered By: Sharif Ramos on 08-13-2024 Lymphocytes/100 WBC (Bld) 29.1 % 19-41 [facility] MCV (mean corpuscular volume ) determinationOrdered By: Sharif Ramos on 08-13-2024 MCV (RBC) [Entitic vol] 96.2 fL 81-99 [facility] Mean corpuscular hemoglobin (MCH) determinationOrdered By: Sharif Ramos on 08-13-2024 MCH (RBC) [Entitic mass] 31.6 pg 27.0-32.0 [facility] Mean corpuscular hemoglobin concentration (MCHC) determinationOrdered By: Sharif Ramos on 08-13-2024 MCHC (RBC) [Mass/Vol] 32.9 g/dL 32-36 [facility] Mean platelet volume determi nationOrdered By: Sharif Ramos on 08-13-2024 Platelet mean volume (Bld) [Entitic vol] 10.2 fL 6.2-12.0 [facility] Monocyte percentageOrdered B y: Sharif Ramos on 08-13-2024 Monocytes/100 WBC (Bld) 8.5 % 0-10 [facility] Neutrophil percentageOrdered By: Sharif Ramos on 08-13-2024 Neutrophils/100 WBC (Bld) 53.9 % 47-70 [facility] Nitrite Test strip Ql (U)Ord ered By: Sharif Ramos on 08-13-2024 Nitrite Ql (U) Negative Negative [facility] Nucleated red blood cell per centageOrdered By: Sharif Ramos on 08-13-2024 Nucleated RBC/100 WBC (Bld) [Ratio] 0 % 0-5 [facility] Platelet countOrdered By: Cristina Ramos on 08-13-2024 Platelets (Bld) [#/Vol] 292 10*3/uL 150-450 [facility] Potassium (Unsp spec) [Mass/ Vol]Ordered By: Sharif Ramos on 08-13-2024 Potassium [Moles/Vol] 3.8 mmol/L 3.3-5.1 [facility] Potassium measurement (mass/ volume)Ordered By: Sharif Ramos on 08-13-2024 Potassium (Unsp spec) [Mass/Vol] 3.8 mmol/L 3.3-5.1 [facility] Protein Test strip Ql (U)Ord ered By: Sharif Ramos on 08-13-2024 Protein Ql (U) 15 mg/dl High Negative [facility] RBC Auto (Bld) [#/Vol]Ordere d By: Sharif Ramos on 08-13-2024 RBC (Bld) [#/Vol] 3.73 10*6/uL Low 4.2-5.4 [facility] Serum creatinine measurement (mass/volume)Ordered By: Sharif Ramos on 08-13-2024 Creatinine [Mass/Vol] 1.03 mg/dL 0.70-1.20 [facility] Serum globulin measurementOr dered By: Sharif Ramos on 08-13-2024 Globulin (S) [Mass/Vol] 2.3 g/dL 2.2-4.2 [facility] Serum glucose measurement (m ass/volume)Ordered By: Sharif Ramos on 08-13-2024 Glucose [Mass/Vol] 88 mg/dL 70-99 [facility] Serum or plasma alanine contreras otransferase (ALT) measurementOrdered By: Sharif Ramos on 08-13-2024 ALT [Catalytic activity/Vol] 8 U/L <35 [facility] Serum or plasma albumin clarke urement (mass/volume)Ordered By: Sharif Ramos on 08-13-2024 Albumin [Mass/Vol] 3.3 g/dL Low 3.4-4.8 [facility] Serum or plasma albumin/glob ulin mass ratioOrdered By: Sharif Ramos on 08-13-2024 Albumin/Globulin [Mass ratio] 1.4 {ratio} 0.9-2.4 [facility] Serum or plasma alkaline timi sphatase measurementOrdered By: Sharif Ramos on 08-13-2024 ALP [Catalytic activity/Vol] 64 U/L 35-104 [facility] Serum or plasma calcium clarke urement (mass/volume)Ordered By: Sharif Ramos on 08-13-2024 Calcium [Mass/Vol] 8.7 mg/dL 7.6-11.0 [facility] Serum or plasma urea nitroge n measurement (mass/volume)Ordered By: Sharif Ramos on 08-13-2024 Urea nitrogen [Mass/Vol] 28 mg/dL High 4-19 [facility] Sodium levelOrdered By: Snow Ramos on 08-13-2024 Sodium [Moles/Vol] 153 mmol/L High 133-145 [facility] Total proteinOrdered By: Milton Ramos on 08-13-2024 Protein [Mass/Vol] 5.6 g/dL Low 5.9-8.4 [facility] Urine blood detectionOrdered By: Sharif Ramos on 08-13-2024 Urine Occult Blood Negative Negative [facility] Urine clarityOrdered By: Milton Ramos on 08-13-2024 Clarity (U) Sl. Cloudy Clear [facility] Urine color determinationOrd ered By: Sharif Ramos on 08-13-2024 Color (U) Yellow Yellow [facility] Urine cultureOrdered By: Milton Ramos on 08-13-2024 Bacteria identified Cx Nom (U) Positive Abnormal [facility] Urine glucose detectionOrder ed By: Sharif Ramos on 08-13-2024 Glucose Ql (U) 1000 mg/dl High Normal [facility] Urine leukocyte esterase det ection by dipstickOrdered By: Sharif Ramos on 08-13-2024 Leukocyte esterase Test strip Ql (U) Negative Negative [facility] Urine pHOrdered By: Mary Ramos on 08-13-2024 pH (U) 6.0 [pH] 5.0 - 8.0 [facility] Urine specific gravity measu rementOrdered By: Sharif Ramos on 08-13-2024 Specific gravity (U) [Rel density] 1.020 1.002-1.030 [facility] Urine urobilinogen measureme ntOrdered By: Sharif Ramos on 08-13-2024 Urobilinogen Ql (U) Normal mg/dl Normal [facility] Urobilinogen Ql (U)Ordered B y: Sharif Pereiraroxannagregg on 08-13-2024 Urine Urobilinogen Normal mg/dl Normal [facility] White blood cell (WBC) count Ordered By: Sharif Ramos on 08-13-2024 WBC (Bld) [#/Vol] 4.4 10*3/uL 4.4-11.0 [facility] Pacemaker Checkon 07-09-2024 Pacemaker Check [facility] [address] [place] [address] Pacemaker Check Date of Service: 07/09/24 1411 MR#: [id number] Acct: [id number] Name: SHERRIE LOZANO Rep #: [id number] : 1935 From: Abby Butts Age/Sex: 89/F Location: [facility] Status: Signed Billing Codes ICD Device Billin ICD Dev Prog Eval, Multi Assessment and Plan Assessment and Plan (1) Ischemic cardiomyopathy: Status: Acute (2) ICD (implantable cardioverter-defibrill ator) in place: Status: Acute (3) CHF (congestive heart failure): Status: Acute 07/09/24 1413 Date Abby Patiño Signature: Date (if applicable) CC: Normal [facility] Direct serum free thyroxine (FT4) measurementOrdered By: Sharif Ramos on 06-26-2024 Free T4 [Mass/Vol] 1.34 ng/dL 0.76-1.46 [facility] TSH QnOrdered By: Sharif Ramos on 06-26-2024 Thyroid Stimulating Hormone (TSH) 2.090 uIU/mL 0.358-3.740 [facility] 12 Lead EKG performed by [facility] on 06-18-2024 12 Lead EKG performed by [facility] [address] [place] [address] 12 Lead EKG performed by [facility] 06/18/24 1250 MR#: [id number] Acct: [id number] Name: MANSOORDAMIENSHERRIE Rep #: [id number] : 1935 89 From: Andrea Hawthorne MD Attending Dr: Dr. Andrea Hawthorne MD Status: DEP A MB Ordering Dr: Andrea Hawthorne MD Date: 06/18/24 Location: [facility] Sex: F C Admitted: BMS/12 Lead EKG performed by [facility] ECG Report Interpretation ----Electronic ventricular pacemaker Pacemaker ECG, No further analysis Electronically signed on 06/23/2024 at 08:30 by Andrea Hawthorne [employer] Version [id number] 06/23/24 0833 Date Andrea Hawthorne MD CC: Sharif Ramos MD Date Dictated: 06/18/24 1250 Date Transcribed: 06/18/241249 Employee Communications Specialist: [place] Signed Normal [facility] Cardiology Visit Reporton Cardiology Visit Report [facility] [address] [place] [address] OFFICE VISIT Date of Service: 06/18/24 MR#: [id number] Acct: [id number] Name: HSERRIE LOZANO Rep #: [id number] : 1935 Provider: Dr. Andrea Hawthorne MD Age/Sex: 89/F Location: [facility] Status: Signed HPI HPI History of Present Illness Details: Pleasant 89-year-old lady who has recently relocated from [facility] here. She has a history of hypertension, [...] Method room air Intake Visit Reasons: ESTABLISH ([facility]) Talent Assistant Required: No Accompanied by: Nephew Is patient in pain?: No Allergies Fvtqhrs-ANE-LoB Reductase Inhibitor Adverse Reaction (Mild, Verified 06/18/24 [...] the past year?: Yes (Hip Fx) [facility] Medical History Secondary hyperaldosteronism Hyperlipidemia Essential (primary) [...] with act (more content not included)... Normal [facility] Absolute neutrophil countOrd ered By: Sharif Ramos on 06-06-2024 Neutrophils (Bld) [#/Vol] 3.6 10*3/uL 2.0-7.7 [facility] Basophil percentageOrdered B y: Sharif Ramos on 06-06-2024 Basophils/100 WBC (Bld) 0.5 % 0-1 [facility] Blood urea nitrogen (BUN)/cr eatinine ratioOrdered By: Sharif Ramos on 06-06-2024 Urea nitrogen/Creatinine [Mass ratio] 26.6 mg/mg High 10-20 [facility] Carbon dioxide measurementOr dered By: Sharif Ramos on 06-06-2024 CO2 [Moles/Vol] 25.0 mmol/L 21.0-32.0 [facility] Chloride measurementOrdered By: Sharif Ramos on 06-06-2024 Chloride [Moles/Vol] 110 mmol/L High 98-107 [facility] Eosinophil percentageOrdered By: Sharif Ramos on 06-06-2024 Eosinophils/100 WBC (Bld) 6.2 % High 0-5 [facility] Erythrocyte distribution wid th (RBC) [Ratio]Ordered By: Sharif Ramos on 06-06-2024 Erythrocyte distribution width (RBC) [Entitic vol] 48.0 fL High 35.1-43.9 [facility] Erythrocyte distribution wid th ratioOrdered By: Sharif Ramos on 06-06-2024 Erythrocyte distribution width (RBC) [Ratio] 13.2 % 11.6-14.6 [facility] Estimated glomerular filtrat ion rate (GFR) AmericanOrdered By: Sharif Ramos on 06-06-2024 Estimated GFR (MDRD) Amer 61 mL/min >60 [facility] Comment on above: GFR Calc Glomerular filtration rate ( GFR) estimationOrdered By: Sharif Ramos on 06-06-2024 Estimated GFR (MDRD) Non-Af Amer 50 mL/min Low >60 [facility] Comment on above: Non- GFR Calc Glucose measurementOrdered B y: Sharif Ramos on 06-06-2024 Glucose [Mass/Vol] 98 mg/dL 74-106 [facility] Hematocrit Auto (Bld) [Volum e fraction]Ordered By: richie Ramos on 06-06-2024 Hematocrit (Bld) [Volume fraction] 39.7 % 37-47 [facility] Hemoglobin measurementOrdere d By: Sharif Ramos on 06-06-2024 Hemoglobin (Bld) [Mass/Vol] 12.9 g/dL 12.0-15.0 [facility] Immature granulocytes/100 WB C Auto (Bld)Ordered By: Sharif Ramos on 06-06-2024 Immature granulocytes/100 WBC (Bld) 0.300 % 0.0-0.9 [facility] Comment on above: IG% - Immature Granu locytes (promyelocytes, myelocytes and metamyelocytes) > 1% indicates that a LEFT SHIFT is Present. Lymphocytes Auto (Unsp spec) [#/Vol]Ordered By: Sharif Ramos on 06-06-2024 Lymphocytes (Bld) [#/Vol] 1.31 10*3/uL 0.83-4.51 [facility] Lymphocytes/100 WBC Auto (Un sp spec)Ordered By: Sharif Ramos on 06-06-2024 Lymphocytes/100 WBC (Bld) 22.4 % 19-41 [facility] MCV (mean corpuscular volume ) determinationOrdered By: Sharif Ramos on 06-06-2024 MCV (RBC) [Entitic vol] 99.0 fL 81-99 [facility] Mean corpuscular hemoglobin (MCH) determinationOrdered By: Sharif Ramos on 06-06-2024 MCH (RBC) [Entitic mass] 32.2 pg High 27.0-32.0 [facility] Mean corpuscular hemoglobin concentration (MCHC) determinationOrdered By: Sharif Ramos on 06-06-2024 MCHC (RBC) [Mass/Vol] 32.5 g/dL 32-36 [facility] Mean platelet volume determi nationOrdered By: Sharif Ramos on 06-06-2024 Platelet mean volume (Bld) [Entitic vol] 10.4 fL 6.2-12.0 [facility] Monocyte percentageOrdered B y: Sharif Ramos on 06-06-2024 Monocytes/100 WBC (Bld) 9.2 % 0-10 [facility] Neutrophil percentageOrdered By: Sharif Ramos on 06-06-2024 Neutrophils/100 WBC (Bld) 61.4 % 47-70 [facility] Nucleated red blood cell per centageOrdered By: Sharif Ramos on 06-06-2024 Nucleated RBC/100 WBC (Bld) [Ratio] 0 % 0-5 [facility] Platelet countOrdered By: Cristina Ramos on 06-06-2024 Platelets (Bld) [#/Vol] 328 10*3/uL 150-450 [facility] Potassium measurementOrdered By: Sharif Ramos on 06-06-2024 Potassium [Moles/Vol] 4.1 mmol/L 3.5-5.1 [facility] RBC Auto (Bld) [#/Vol]Ordere d By: Sharif Ramos on 06-06-2024 RBC (Bld) [#/Vol] 4.01 10*6/uL Low 4.2-5.4 [facility] Serum anion gap measurementO rdered By: Sharif Ramos on 06-06-2024 Anion gap [Moles/Vol] 7 mmol/L 5-15 [facility] Serum or plasma calcium clarke urement (mass/volume)Ordered By: Sharif Ramos on 06-06-2024 Calcium [Mass/Vol] 9.2 mg/dL 8.5-10.1 [facility] Serum or plasma creatinine m easurement (mass/volume)Ordered By: Sharif Ramos on 06-06-2024 Creatinine [Mass/Vol] 1.09 mg/dL High 0.55-1.02 [facility] Comment on above: The validity of the calculated GFR & GFRAA in patients over 70 years has not been determined. Clinical correlation is essential. Serum or plasma urea nitroge n measurement (mass/volume)Ordered By: Sharif Ramos on 06-06-2024 Urea nitrogen [Mass/Vol] 29 mg/dL High 7-18 [facility] Sodium levelOrdered By: Snow Ramos on 06-06-2024 Sodium [Moles/Vol] 142 mmol/L 136-145 [facility] White blood cell (WBC) count Ordered By: Sharif Ramos on 06-06-2024 WBC (Bld) [#/Vol] 5.8 10*3/uL 4.4-11.0 [facility] Direct serum free thyroxine (FT4) measurementOrdered By: Sharif Ramos on 05-15-2024 Free T4 [Mass/Vol] 1.35 ng/dL 0.76-1.46 [facility] TSH QnOrdered By: Sharif Ramos on 05-15-2024 Thyroid Stimulating Hormone (TSH) 2.920 uIU/mL 0.358-3.740 [facility] Absolute neutrophil countOrd ered By: Sharif Ramos on 05-07-2024 Neutrophils (Bld) [#/Vol] 3.2 10*3/uL 2.0-7.7 [facility] Basophil percentageOrdered B y: Sharif Ramos on 05-07-2024 Basophils/100 WBC (Bld) 0.4 % 0-1 [facility] Blood urea nitrogen (BUN)/cr eatinine ratioOrdered By: Sharif Ramos on 05-07-2024 Urea nitrogen/Creatinine [Mass ratio] 30.2 mg/mg High 10-20 [facility] Carbon dioxide measurementOr dered By: Sharif Ramos on 05-07-2024 CO2 [Moles/Vol] 26.0 mmol/L 21.0-32.0 [facility] Chloride measurementOrdered By: Sharif Ramos on 05-07-2024 Chloride [Moles/Vol] 113 mmol/L High 98-107 [facility] Eosinophil percentageOrdered By: Sharif Ramos on 05-07-2024 Eosinophils/100 WBC (Bld) 6.8 % High 0-5 [facility] Erythrocyte distribution wid th (RBC) [Ratio]Ordered By: Sharif Ramos on 05-07-2024 Erythrocyte distribution width (RBC) [Entitic vol] 49.6 fL High 35.1-43.9 [facility] Erythrocyte distribution wid th ratioOrdered By: Sharif Ramos on 05-07-2024 Erythrocyte distribution width (RBC) [Ratio] 13.6 % 11.6-14.6 [facility] Estimated glomerular filtrat ion rate (GFR) AmericanOrdered By: Sharif Ramos on 05-07-2024 Estimated GFR (MDRD) Amer 57 mL/min Low >60 [facility] Comment on above: GFR Calc Glomerular filtration rate ( GFR) estimationOrdered By: Sharif Ramos on 05-07-2024 Estimated GFR (MDRD) Non-Af Amer 47 mL/min Low >60 [facility] Comment on above: Non- GFR Calc Glucose measurementOrdered B y: Sharif Ramos on 05-07-2024 Glucose [Mass/Vol] 110 mg/dL High 74-106 [facility] Comment on above: Fasting Glucose resu lt from 100 to 125 mg/dL suggests IMPAIRED HOMEOSTASIS per A.D.A. criteria. Hematocrit Auto (Bld) [Volum e fraction]Ordered By: Sharif Ramos on 05-07-2024 Hematocrit (Bld) [Volume fraction] 34.6 % Low 37-47 [facility] Hemoglobin measurementOrdere d By: Sharif Ramos on 05-07-2024 Hemoglobin (Bld) [Mass/Vol] 11.5 g/dL Low 12.0-15.0 [facility] Immature granulocytes/100 WB C Auto (Bld)Ordered By: Cristinakarsonzanemike Pereiraroxannagregg on 05-07-2024 Immature granulocytes/100 WBC (Bld) 0.400 % 0.0-0.9 [facility] Comment on above: IG% - Immature Granu locytes (promyelocytes, myelocytes and metamyelocytes) > 1% indicates that a LEFT SHIFT is Present. Lymphocytes Auto (Unsp spec) [#/Vol]Ordered By: Sharif Ramos on 05-07-2024 Lymphocytes (Bld) [#/Vol] 1.10 10*3/uL 0.83-4.51 [facility] Lymphocytes/100 WBC Auto (Un sp spec)Ordered By: Sharif Pereiraroxannagregg on 05-07-2024 Lymphocytes/100 WBC (Bld) 21.5 % 19-41 [facility] MCV (mean corpuscular volume ) determinationOrdered By: Sharif Ramos on 05-07-2024 MCV (RBC) [Entitic vol] 98.6 fL 81-99 [facility] Mean corpuscular hemoglobin (MCH) determinationOrdered By: Sharif Pereiraroxannagregg on 05-07-2024 MCH (RBC) [Entitic mass] 32.8 pg High 27.0-32.0 [facility] Mean corpuscular hemoglobin concentration (MCHC) determinationOrdered By: Sharif Ramos on 05-07-2024 MCHC (RBC) [Mass/Vol] 33.2 g/dL 32-36 [facility] Mean platelet volume determi nationOrdered By: Sharif Ramos on 05-07-2024 Platelet mean volume (Bld) [Entitic vol] 10.6 fL 6.2-12.0 [facility] Monocyte percentageOrdered B y: Sharif Pereiraroxannagregg on 05-07-2024 Monocytes/100 WBC (Bld) 9.2 % 0-10 [facility] Neutrophil percentageOrdered By: Sharif Ramos on 05-07-2024 Neutrophils/100 WBC (Bld) 61.7 % 47-70 [facility] Nucleated red blood cell per centageOrdered By: Sharif Ramos on 05-07-2024 Nucleated RBC/100 WBC (Bld) [Ratio] 0 % 0-5 [facility] Platelet countOrdered By: Cristina Ramos on 05-07-2024 Platelets (Bld) [#/Vol] 303 10*3/uL 150-450 [facility] Potassium measurementOrdered By: Sharif Ramos on 05-07-2024 Potassium [Moles/Vol] 4.1 mmol/L 3.5-5.1 [facility] RBC Auto (Bld) [#/Vol]Ordere d By: Sharif Ramos on 05-07-2024 RBC (Bld) [#/Vol] 3.51 10*6/uL Low 4.2-5.4 [facility] Serum anion gap measurementO rdered By: Sharif Ramos on 05-07-2024 Anion gap [Moles/Vol] 4 mmol/L Low 5-15 [facility] Serum or plasma calcium clarke urement (mass/volume)Ordered By: Sharif Ramos on 05-07-2024 Calcium [Mass/Vol] 9.0 mg/dL 8.5-10.1 [facility] Serum or plasma creatinine m easurement (mass/volume)Ordered By: Sharif Ramos on 05-07-2024 Creatinine [Mass/Vol] 1.16 mg/dL High 0.55-1.02 [facility] Comment on above: The validity of the calculated GFR & GFRAA in patients over 70 years has not been determined. Clinical correlation is essential. Serum or plasma urea nitroge n measurement (mass/volume)Ordered By: Sharif Ramos on 05-07-2024 Urea nitrogen [Mass/Vol] 35 mg/dL High 7-18 [facility] Sodium levelOrdered By: Snow Ramos on 05-07-2024 Sodium [Moles/Vol] 143 mmol/L 136-145 [facility] White blood cell (WBC) count Ordered By: Sharif Ramos on 12-04-2024 WBC (Bld) [#/Vol] 5.1 10*3/uL 4.4-11.0 [facility] COVID-19 virus antigen assay Ordered By: Tammi Frost on 10-10-2023 SARS-CoV-2 (COVID-19) Ag IA.rapid Ql (Resp) [facility] Basophil percentageOrdered B y: Tammi Frost on 10-09-2023 Chloride [Moles/Vol] 109 mmol/L 98-107 [facility] Glucose [Mass/Vol] 100 mg/dL 74-106 [facility] Comment on above: Fasting Glucose resu lt from 100 to 125 mg/dL suggests IMPAIRED HOMEOSTASIS per A.D.A. criteria. Hemoglobin (Bld) [Mass/Vol] 10.7 g/dL 12.0-15.0 [facility] Potassium [Moles/Vol] 4.4 mmol/L 3.5-5.1 [facility] Sodium [Moles/Vol] 139 mmol/L 136-145 [facility] WBC (Bld) [#/Vol] 8.3 10*3/uL 4.4-11.0 [facility] Determination of erythrocyte mean corpuscular volume (MCV)Ordered By: Tammi Frost on 10-09-2023 MCV (RBC) [Entitic vol] 95.8 fL 81-99 [facility] Erythrocyte distribution wid th ratioOrdered By: Tammi Frost on 10-09-2023 Erythrocyte distribution width (RBC) [Ratio] 16.0 % 11.6-14.6 [facility] Erythrocyte distribution wid th standard deviationOrdered By: Tammi Frost on 10-09-2023 Erythrocyte distribution width (RBC) [Entitic vol] 57.1 fL 35.1-43.9 [facility] Hematocrit Auto (Bld) [Volum e fraction]Ordered By: Tammi Frost on 10-09-2023 Hematocrit (Bld) [Volume fraction] 33.9 % 37-47 [facility] Laboratory - Chemistry and C hemistry - challengeOrdered By: Tammi Frost on 10-09-2023 CO2 [Moles/Vol] 27.0 mmol/L 21.0-32.0 [facility] Urea nitrogen/Creatinine [Mass ratio] 40.4 mg/mg 10-20 [facility] Laboratory - Hematology and Cell countsOrdered By: aTmmi Frost on 10-09-2023 MCH (RBC) [Entitic mass] 30.2 pg 27.0-32.0 [facility] MCHC (RBC) [Mass/Vol] 31.6 g/dL 32-36 [facility] Platelet mean volume (Bld) [Entitic vol] 9.9 fL 6.2-12.0 [facility] Platelets (Bld) [#/Vol] 450 10*3/uL 150-450 [facility] No Panel InformationOrdered By: Tammi Frost on 10-09-2023 Estimated Creatinine Clearance Calc 26.00 ml/min [facility] Estimated GFR (MDRD) Amer 70 mL/min >60 [facility] Comment on above: GFR Calc Estimated GFR (MDRD) Non-Af Amer 58 mL/min >60 [facility] Comment on above: Non- GFR Calc RBC Auto (Bld) [#/Vol]Ordere d By: Tammi Frost on 10-09-2023 RBC (Bld) [#/Vol] 3.54 10*6/uL 4.2-5.4 [facility] Serum or plasma calcium clarke urement (mass/volume)Ordered By: Tammi Frost on 10-09-2023 Calcium [Mass/Vol] 8.7 mg/dL 8.5-10.1 [facility] Serum or plasma creatinine m easurement (mass/volume)Ordered By: Tammi Frsot on 10-09-2023 Creatinine [Mass/Vol] 0.97 mg/dL 0.55-1.02 [facility] Comment on above: The validity of the calculated GFR & GFRAA in patients over 70 years has not been determined. Clinical correlation is essential. Serum or plasma urea nitroge n measurement (mass/volume)Ordered By: Tammi Frost on 10-09-2023 Urea nitrogen [Mass/Vol] 39 mg/dL 7-18 [facility] Thin prep Papanicolaou smear with manual screeningOrdered By: Tammi Frost on 10-09-2023 Thin prep Papanicolaou smear with manual screening 3 5-15 [facility] Absolute lymphocyte countOrd ered By: Anson Waite on 10-02-2023 Lymphocytes Auto (Unsp spec) [#/Vol] 0.69 10*3/uL 0.83-4.51 [facility] Automated lymphocyte count a s percentage of total leukocytesOrdered By: Anson Waite on 10-02-2023 Lymphocytes/100 WBC Auto (Unsp spec) 7.3 % 19-41 [facility] Basophil percentageOrdered B y: Anson Waite on 10-02-2023 Basophils/100 WBC (Bld) 0.2 % 0-1 [facility] Eosinophils/100 WBC (Bld) 0.6 % 0-5 [facility] Monocytes/100 WBC (Bld) 7.4 % 0-10 [facility] Neutrophils (Bld) [#/Vol] 8.0 10*3/uL 2.0-7.7 [facility] Neutrophils/100 WBC (Bld) 84.0 % 47-70 [facility] Immature granulocytes/100 WB C Auto (Bld)Ordered By: Anson Waite on 10-02-2023 Immature granulocytes/100 WBC (Bld) 0.500 % 0.0-0.9 [facility] Comment on above: IG% - Immature Granu locytes (promyelocytes, myelocytes and metamyelocytes) > 1% indicates that a LEFT SHIFT is Present. Laboratory - Hematology and Cell countsOrdered By: Anson Waite on 10-02-2023 Nucleated RBC/100 WBC (Bld) [Ratio] 0 % 0-5 [facility] Whole blood hemoglobin A1c/t otal hemoglobin ratio (mass fraction)Ordered By: Anson Waite on 10-02-2023 HbA1c (Bld) [Mass fraction] 5.4 % 3.8-5.6 [facility] Comment on above: Normal < 5.7 % Predi abetic 5.7 - 6.4 % Diabetic >or= 6.5 % Please note range changes. Basophil percentageOrdered B y: Mehdi Cabrera on 09-30-2023 Basophil percentage 3.8 mg/dL 2.5-4.9 [facility] Bilirubin [Mass/Vol] 0.60 mg/dL 0.20-1.00 [facility] Comment on above: For patients on eltr ombopag therapy, use of Dimension [place] TBIL is not recommended. Protein [Mass/Vol] 6.1 g/dL 6.4-8.2 [facility] Laboratory - Chemistry and C hemistry - challengeOrdered By: Mehdi Cabrera on 09-30-2023 Albumin/Globulin [Mass ratio] 0.9 {ratio} 0.9-2.4 [facility] ALP [Catalytic activity/Vol] 68 U/L 45-117 [facility] ALT [Catalytic activity/Vol] 23 U/L 13-56 [facility] Globulin (S) [Mass/Vol] 3.2 g/dL 2.2-4.2 [facility] Magnesium [Mass/Vol] 2.9 mg/dL 1.6-2.6 [facility] Thin prep Papanicolaou smear with manual screeningOrdered By: Anson Waite on 09-30-2023 Thin prep Papanicolaou smear with manual screening 92 mg/dL 74-106 [facility] Comment on above: MANAGEMENT OF PATIEN T CARE PER NURSING PROTOCOL Thin prep Papanicolaou smear with manual screeningOrdered By: Mehdi Cabrera on 09-30-2023 Thin prep Papanicolaou smear with manual screening 2.9 g/dL 3.2-5.0 [facility] Thin prep Papanicolaou smear with manual screening 20 U/L 15-37 [facility] Absolute lymphocyte countOrd ered By: Grant Whitley on 09-29-2023 Lymphocytes Auto (Unsp spec) [#/Vol] 1.31 10*3/uL 0.83-4.51 [facility] Automated lymphocyte count a s percentage of total leukocytesOrdered By: Grant Whitley on 09-29-2023 Lymphocytes/100 WBC Auto (Unsp spec) 19.6 % 19-41 [facility] Basophil percentageOrdered B y: Mehdi Cabrera on 09-29-2023 Cholesterol [Mass/Vol] 195 mg/dL <[address] [facility] Comment on above: <200 mg/dL Desirable 200-240 mg/dL Borderline >240 mg/dL High Risk Triglyceride [Mass/Vol] 87 mg/dL <199 [facility] Comment on above: The drugs N-Acetylcy steine and Metamizole may falsely depress this assay.Serum Triglycerides Reference Interval Normal <150 mg/dL Borderline high 150 - 199 mg/dL High 200 - 499 mg/dL Very High > or = 500 mg/dL Basophil percentageOrdered B y: Grant Whitley on 09-29-2023 Basophils/100 WBC (Bld) 0.3 % 0-1 [facility] Chloride [Moles/Vol] 106 mmol/L 98-107 [facility] Eosinophils/100 WBC (Bld) 1.6 % 0-5 [facility] Glucose [Mass/Vol] 93 mg/dL 74-106 [facility] Hemoglobin (Bld) [Mass/Vol] 14.8 g/dL 12.0-15.0 [facility] Monocytes/100 WBC (Bld) 5.8 % 0-10 [facility] Neutrophils (Bld) [#/Vol] 4.8 10*3/uL 2.0-7.7 [facility] Neutrophils/100 WBC (Bld) 71.8 % 47-70 [facility] Potassium [Moles/Vol] 4.9 mmol/L 3.5-5.1 [facility] Comment on above: Moderate Hemolysis, Result may be falsely increased. Sodium [Moles/Vol] 140 mmol/L 136-145 [facility] WBC (Bld) [#/Vol] 6.7 10*3/uL 4.4-11.0 [facility] Determination of erythrocyte mean corpuscular volume (MCV)Ordered By: Grant Whitley on 09-29-2023 MCV (RBC) [Entitic vol] 94.4 fL 81-99 [facility] Erythrocyte distribution wid th ratioOrdered By: Grant Whitley on 09-29-2023 Erythrocyte distribution width (RBC) [Ratio] 15.9 % 11.6-14.6 [facility] Erythrocyte distribution wid th standard deviationOrdered By: Grantcarlene Whitley on 09-29-2023 Erythrocyte distribution width (RBC) [Entitic vol] 55.5 fL 35.1-43.9 [facility] Hematocrit Auto (Bld) [Volum e fraction]Ordered By: Grant Whitley on 09-29-2023 Hematocrit (Bld) [Volume fraction] 45.6 % 37-47 [facility] Immature granulocytes/100 WB C Auto (Bld)Ordered By: Grant Whitley on 09-29-2023 Immature granulocytes/100 WBC (Bld) 0.900 % 0.0-0.9 [facility] Comment on above: IG% - Immature Granu locytes (promyelocytes, myelocytes and metamyelocytes) > 1% indicates that a LEFT SHIFT is Present. Laboratory - Chemistry and C hemistry - challengeOrdered By: Mehdi Cabrera on 09-29-2023 Cholesterol in HDL [Mass/Vol] 54 mg/dL >40 [facility] Comment on above: The drugs N-Acetylcy steine and Metamizole may falsely depress this assay. Reference Range HDL <40 mg/dL Low HDL Cholesterol HDL >or= 60 mg/dL High HDL Cholesterol Cholesterol in LDL [Mass/Vol] 124 mg/dL 0-130 [facility] Laboratory - Chemistry and C hemistry - challengeOrdered By: Grant Whitley on 09-29-2023 CO2 [Moles/Vol] 31.0 mmol/L 21.0-32.0 [facility] Urea nitrogen/Creatinine [Mass ratio] 36.0 mg/mg 10-20 [facility] Laboratory - Hematology and Cell countsOrdered By: Grant Whitley on 09-29-2023 MCH (RBC) [Entitic mass] 30.6 pg 27.0-32.0 [facility] MCHC (RBC) [Mass/Vol] 32.5 g/dL 32-36 [facility] Nucleated RBC/100 WBC (Bld) [Ratio] 0 % 0-5 [facility] Platelet mean volume (Bld) [Entitic vol] 9.9 fL 6.2-12.0 [facility] Platelets (Bld) [#/Vol] 314 10*3/uL 150-450 [facility] No Panel InformationOrdered By: Mehdi Cabrera on 09-29-2023 VLDL Cholesterol 17 mg/dL 5-40 [facility] No Panel InformationOrdered By: Grant Whitley on 09-29-2023 Estimated Creatinine Clearance Calc 25.84 ml/min [facility] Estimated GFR (MDRD) Amer 67 mL/min >60 [facility] Comment on above: GFR Calc Estimated GFR (MDRD) Non-Af Amer 56 mL/min >60 [facility] Comment on above: Non- GFR Calc RBC Auto (Bld) [#/Vol]Ordere d By: Grant Whitley on 09-29-2023 RBC (Bld) [#/Vol] 4.83 10*6/uL 4.2-5.4 [facility] Serum or plasma calcium clarke urement (mass/volume)Ordered By: Grant Whitley on 09-29-2023 Calcium [Mass/Vol] 9.6 mg/dL 8.5-10.1 [facility] Serum or plasma creatinine m easurement (mass/volume)Ordered By: Grant Whitley on 09-29-2023 Creatinine [Mass/Vol] 1.00 mg/dL 0.55-1.02 [facility] Comment on above: The validity of the calculated GFR & GFRAA in patients over 70 years has not been determined. Clinical correlation is essential. Serum or plasma urea nitroge n measurement (mass/volume)Ordered By: Grant Whitley on 09-29-2023 Urea nitrogen [Mass/Vol] 36 mg/dL 7 [facility] Thin prep Papanicolaou smear with manual screeningOrdered By: Grantcarlene Whitley on 09-29-2023 Thin prep Papanicolaou smear with manual screening 3 10-16 [facility] Vital Signs Date Time Vital Sign Value Performing Clinician Faci lity 06-18-2024 09:53-0500 Body mass index (BMI) [Ratio] 22.6 kg/m2 Dr. Viet Lovett MD Work Phone: [facility] 06-18-2024 09:53-0500 Body weight 58.[address] Viet Lovett MD Work Phone: [facility] 06-18-2024 09:53-0500 Diastolic blood pressure 58 mm[Hg] Dr. Viet Lovett MD Work Phone: [facility] 06-18-2024 09:53-0500 Heart rate 69 /min Dr. Viet Lovett MD Work Phone: [facility] 06-18-2024 09:53-0500 Respiratory rate 16 /min Dr. Viet Lovett MD Work Phone: [facility] 06-18-2024 09:53-0500 SaO2% (BldA) [Mass fraction] 95 % Dr. Viet Lovett MD Work Phone: [facility] 06-18-2024 09:53-0500 Systolic blood pressure 104 mm[Hg] Dr. Viet Lovett MD Work Phone: [facility] 10-10-2023 09:37-0400 Body temperature 97.7 [degF] Dr. Grant Whitley Work Phone: 4(177)[phone] [place] [address] 10-10-2023 09:37-0400 Diastolic blood pressure 55 mm[Hg] Dr. Grant Whitley Work Phone: 0(704)[phone] [place] [address] 10-10-2023 09:37-0400 Heart rate 70 /min Dr. Grant Whitley Work Phone: 4(649)[phone] [place] [address] 10-10-2023 09:37-0400 Respiratory rate 16 /min Dr. Grant Whitley Work Phone: 6(495)[phone] [place] [address] 10-10-2023 09:37-0400 SaO2% (BldA) [Mass fraction] 97 % Dr. Grant Whitley Work Phone: 8(862)[phone] [place] [address] 10-10-2023 09:37-0400 Systolic blood pressure 132 mm[Hg] Dr. Grant Whitley Work Phone: 3(260)[phone] [place] [address] 10-08-2023 15:05-0400 Body height 160.[address] Grant Whitley Work Phone: 9(193)[phone] [place] [address] 10-08-2023 15:05-0400 Body weight 40.[address] Grant Whitley Work Phone: 7(125)[phone] [place] [address] 10-07-2023 04:22-0400 Body mass index (BMI) [Ratio] 15.7 kg/m2 Dr. Grant Whitley Work Phone: 6(460)[phone] [place] [address] 10-01-2023 01:28-0400 Inhaled oxygen flow rate 2 L/min Dr. Grant Whitley Work Phone: 6(074)[phone] [place] [address] 09-29-2023 14:46-0400 Body temperature 98.1 [degF] [facility] 09-29-2023 14:46-0400 Diastolic blood pressure 70 mm[Hg] [facility] 09-29-2023 14:46-0400 Heart rate 70 /min [facility] 09-29-2023 14:46-0400 Respiratory rate 14 /min [facility] 09-29-2023 14:46-0400 SaO2% (BldA) [Mass fraction] 99 % [facility] 09-29-2023 14:46-0400 Systolic blood pressure 163 mm[Hg] [facility] 09-29-2023 12:46-0400 Body height 160.02 cm [facility] 09-29-2023 12:46-0400 Body mass index (BMI) [Ratio] 16.1 kg/m2 [facility] 09-29-2023 12:46-0400 Body weight 41.3 kg [facility] Encounters Encounter Date Encounter Type Care Provider Facility Start: 10-08-2024 End: 10-08-2024 ambulatory Sharif Ramos MD [facility] Work Phone: Start: 10-08-2024 End: 10-08-2024 [facility] Start: 10-08-2024 End: 10-08-2024 ambulatory Sharif CARRENO Facility:[facility] Start: 09-02-2024 End: 09-02-2024 ambulatory [facility] Start: 09-02-2024 End: 09-02-2024 Patient encounter procedure Lashae NAM -[facility] Work Phone: Start: 08-17-2024 End: 08-17-2024 ambulatory Andrea Hawthorne Facility:[facility] Start: 08-17-2024 End: 08-17-[address] Andrea Hawthorne MD [facility] Work Phone: Start: 08-13-2024 [facility] Start: 08-13-2024 End: 08-13-[address] Viet Lovett MD Work Phone: [facility] Work Phone: Start: 08-13-2024 End: 08-13-2024 [facility] Start: 08-12-2024 End: 08-13-2024 ambulatory Efewongbe Oleghe OLS Facility:[facility] Start: 08-12-2024 End: 08-12-[address] Sharif Ramos MD -[facility] Work Phone: Start: 07-31-2024 End: 07-31-2024 ambulatory Efewzanebe Randallroxannae Facility:[facility] Start: 07-31-2024 End: 07-31-2024 Patient encounter procedure Jamar DE LA PAZ -[facility] Work Phone: Start: 07-09-2024 End: 07-09-2024 ambulatory Andrea Hawthorne Facility:[facility] Start: 07-09-2024 End: 07-09-[address] Andrea Hawthorne MD -[facility] Work Phone: Start: 06-26-2024 ambulatory Efewongbe Oleghe OLS Fa cility:[facility] Start: 06-26-2024 [facility] Start: 06-24-2024 End: 06-24-2024 ambulatory Efewongbe Oleghe OLS Facility:[facility] Start: 06-24-2024 End: 06-24-2024 Patient encounter procedure Lashae NAM -[facility] Work Phone: Start: 06-18-2024 End: 06-18-[address] Andrea Hawthorne MD -[facility] Work Phone: Start: 06-18-2024 End: 06-18-2024 ambulatory Efewongbe Oleghe OLS Facility:[facility] Start: 06-17-2024 End: 06-17-2024 ambulatory Efewongbe Oleghe OLS Facility:[facility] Start: 06-17-2024 End: 06-17-[address] Sharif Ramos MD -[facility] Work Phone: Start: 06-06-2024 ambulatory Efkarsonongbe Latashae OLS Fa cility:[facility] Start: 06-06-2024 Registered Referred Sharif Ramos MD [facility] Start: 05-15-2024 End: 05-15-2024 Departed Referred Sharif Ramos MD [facility] Start: 05-15-2024 End: 05-15-2024 ambulatory Efkarsonongbe Randallroxannae OLS Facility:[facility] Start: 05-07-2024 End: 05-07-2024 Departed Referred Sharif Ramos MD [facility] Start: 05-06-2024 End: 05-07-2024 ambulatory Efewongbe Randallghe OLS Facility:[facility] Start: 04-24-2024 End: 04-24-2024 ambulatory Efewongbe Randallghe OLS Facility:[facility] Start: 04-09-2024 End: 04-09-2024 ambulatory Efewongbe Randallghe OLS Facility:[facility] Start: 04-03-2024 End: 04-03-2024 ambulatory Efewongbe Randallghe OLS Facility:[facility] Start: 03-28-2024 End: 03-28-2024 ambulatory Efewongbe Randallghe OLS Facility:[facility] Start: 03-07-2024 End: 03-07-2024 ambulatory Lashae Garner [employer] Facility:[facility] Start: 03-05-2024 ambulatory Efewongbe Oleghe OLS Fa cility:[facility] Start: 02-21-2024 End: 02-21-2024 ambulatory Efewongbe Oleghe OLS Facility:[facility] Start: 02-19-2024 End: 02-19-2024 ambulatory Efewongbe Oleghe Facility:[facility] Start: 02-06-2024 ambulatory Efewongbe Oleghe OLS Fa cility:[facility] Start: 01-28-2024 End: 01-28-2024 ambulatory Lashae Pascual [employer] Facility:[facility] Start: 01-10-2024 ambulatory Efewongbe Oleghe OLS Fa cility:[facility] Start: 01-09-2024 ambulatory Efewongbe Oleghe OLS Fa cility:[facility] Start: 12-11-2023 End: 12-11-2023 ambulatory Efewongbe Oleghe Facility:[facility] Start: 12-05-2023 End: 12-05-2023 ambulatory Efewongbe Oleghe OLS Facility:[facility] Start: 11-30-2023 End: 11-30-2023 ambulatory Lashae Garner [employer] Facility:[facility] Start: 11-29-2023 End: 11-29-2023 ambulatory Efewongbe Oleghe OLS Facility:[facility] Start: 11-22-2023 End: 11-22-2023 ambulatory Efewongbe Oleghe OLS Facility:[facility] Start: 11-15-2023 End: 11-15-2023 ambulatory Efewongbe Oleghe OLS Facility:[facility] Start: 11-05-2023 End: 11-05-2023 ambulatory Efewongbe Oleghe OLS Facility:[facility] Start: 10-09-2023 Non-patient / Non-visit Dr. Tamica Whitley Work Phone: [facility] Work Phone: Start: 10-08-2023 Non-patient / Non-visit Dr. Tamica Whitley Work Phone: [facility] Work Phone: Start: 10-07-2023 Non-patient / Non-visit Dr. Tamica Whitley Work Phone: [facility] Work Phone: Start: 10-06-2023 Non-patient / Non-visit Dr. Tamica Whitley Work Phone: [facility] Work Phone: Start: 10-05-2023 Non-patient / Non-visit Dr. Tamica Whitley Work Phone: [facility] Work Phone: Start: 10-04-2023 Non-patient / Non-visit Dr. Tamica Whitley Work Phone: [facility] Work Phone: Start: 10-03-2023 Non-patient / Non-visit Dr. Tamica Whitley Work Phone: [facility] Work Phone: Start: 10-02-2023 Non-patient / Non-visit Dr. Tamica Whitley Work Phone: [facility] Work Phone: Start: 10-01-2023 Non-patient / Non-visit Dr. Tamica Whitley Work Phone: [facility] Work Phone: Start: 10-01-2023 Non-patient / Non-visit Dr. Tamica Whitley Work Phone: [facility] Start: 10-01-2023 Non-patient / Non-visit Dr. Tamica Whitley Work Phone: [facility] Start: 09-30-2023 Non-patient / Non-visit Dr. Tamica Whitley Work Phone: [facility] Start: 09-30-2023 Non-patient / Non-visit Dr. Tamica Whitley Work Phone: [facility] Work Phone: Start: 09-29-2023 End: 10-10-2023 Evaluation and management of inpatient [facility] Work Phone: Procedures Date Procedure [...] Activity Detail Author Start: 10-10-2023 Patient discharge [facility] Start: 10-04-2023 Verification routine [facility] Start: 10-02-2023 Care planning and pr oblem solving actions [facility] Start: 10-01-2023 Consultation [facility] Start: 09-30-2023 End: 09-30-2023 [facility] Start: 09-30-2023 Ambulation therapy management [facility] Start: 09-30-2023 Application of device [facility] Start: 09-30-2023 Exercises [facility] Start: 09-30-2023 Following clinical p athway protocol [facility] Start: 09-30-2023 Introduction of urin gideon catheter [facility] Start: 09-30-2023 Neurovascular assessment [facility] Start: 09-30-2023 Patient education [facility] Start: 09-30-2023 Provision of activit y privileges [facility] Start: 09-30-2023 Referral to occupati onal therapist [facility] Start: 09-30-2023 Referral to service [facility] Start: 09-30-2023 Skin care [facility] Start: 09-30-2023 Vital signs measurements [facility] Start: 09-30-2023 Wound care [facility] Start: 09-30-2023 Recommendation to co ntinue with treatment [facility] [facility] Start: 09-29-2023 Application of inter mittent pneumatic compression device [facility] Start: 09-29-2023 Following clinical p athway protocol [facility] Start: 09-29-2023 Assessment of risk o f venous thromboembolism [facility] Start: 09-29-2023 Documentation procedure [facility] Start: 09-29-2023 Incentive [address]irom[address] [facility] Start: 09-29-2023 Insertion of cathete r into peripheral vein [facility] Start: 09-29-2023 Measuring intake and output [facility] Start: 09-29-2023 Providing care accor ding to standard [facility] Start: 09-29-2023 Referral to service [facility] Start: 09-29-2023 [facility] Start: 09-29-2023 Hospital admission, emergency, from emergency room, medical nature [facility] Start: 09-29-2023 Verification routine [facility] Start: 09-29-2023 Admission procedure [facility] Start: 09-29-2023 [facility] Start: 09-29-2023 Patient referral to dietitian [facility] Patient Education Bruises (Contusions) ED Skin Tear (Skin Avulsion) [facility] Work Phone: Patient referral [facility] Work Phone: Immunizations Immunization Date Immunization Notes Care Provider Delvis marley 09-29-2023 tetanus toxoid, redu jorge diphtheria toxoid, and acellular pertussis vaccine, adsorbed [facility] Payers Date Payer Category Payer Medicaid [id number] 2023 Private Health Insurance [id number] 2023 Self-pay Unknown [id number] 2.16.8 40.1.638076.3.579.2.462 Unknown [id number] 2.16.8 40.1.651044.3.579.2.462 Unknown [id number] 2.16.8 40.1.120254.3.579.2.462 Unknown [id number] 2.16.8 40.1.582463.3.579.2.462 Unknown [id number] 2.16.8 40.1.380622.3.579.2.462 Unknown [id number] 2.16.8 40.1.432379.3.579.2.462 Unknown [id number] 2.16.8 40.1.029245.3.579.2.462 Unknown [id number] 2.16.8 40.1.709467.3.579.2.462 Unknown [id number] 2.16.8 40.1.499533.3.579.2.462 Unknown [id number] 2.16.8 40.1.503382.3.579.2.462 Unknown [id number] 2.16.8 40.1.313274.3.579.2.462 Unknown [id number] 2.16.8 40.1.686297.3.579.2.462 Unknown [id number] 2.16.8 40.1.824755.3.579.2.462 Unknown [id number] 2.16.8 40.1.177826.3.579.2.462 Unknown [id number] 2.16.8 40.1.266441.3.579.2.462 Unknown [id number] 2.16.8 40.1.518476.3.579.2.462 Unknown [id number] 2.16.8 40.1.062368.3.579.2.462 Unknown [id number] 2.16.8 40.1.913503.3.579.2.462 Unknown [id number] 2.16.8 40.1.763411.3.579.2.462 Unknown [id number] 2.16.8 40.1.739362.3.579.2.462 Unknown [id number] 2.16.8 40.1.181713.3.579.2.462 Unknown [id number] 2.16.8 40.1.515679.3.579.2.462 Unknown [id number] 2.16.8 40.1.978516.3.579.2.462 Unknown [id number] 2.16.8 40.1.821478.3.579.2.462 Unknown [id number] 2.16.8 40.1.562333.3.579.2.462 Unknown [id number] 2.16.8 40.1.357774.3.579.2.462 Unknown [id number] 2.16.8 40.1.146855.3.579.2.462 Unknown [id number] 2.16.8 40.1.403389.3.579.2.462 Unknown [id number] 2.16.8 40.1.810662.3.579.2.462 Unknown [id number] 2.16.8 40.1.056314.3.579.2.462 Unknown [id number] 2.16.8 40.1.841526.3.579.2.462 Unknown [id number] 2.16.8 40.1.574232.3.579.2.462 Unknown [id number] 2.16.8 40.1.730791.3.579.2.462 Unknown [id number] 2.16.8 40.1.672788.3.579.2.462 Unknown [id number] 2.16.8 40.1.754936.3.579.2.462 Unknown [id number] 2.16.8 40.1.045810.3.579.2.462 Social History Date Type Detail Facility Start: 09-29-2023 End: 09-29-2023 Tobacco smoking status NHIS Unknown if ever smoked [facility] Start: 1935 Sex Assigned At Female [facility] Start: 06-19-2024 Tobacco smoking stat us MDIS Never smoked tobacco (finding) [facility] Start: 09-04-2024 End: 09-04-2024 Sex Female (finding) [facility] Medical Equipment Procedure Code Equipment Code Equipment [...] uncemented hemiarthroplasty of hip Orthopaedic cement, non-antimicrobial ()[id number] FDA Start: 09-30-2023 Primary uncemented hemiarthroplasty [...] Result Facility 10-10-2023 Functional status Bathroom Privilege [facility] Work Phone: Mental Status Date Assessment Result Facility 10-10-2023 Cognitive function Voice/Name [facility] Work Phone: Clinical Notes 09-29-2023 to 07-09-2024 Note Date & Type Note Facility 07-09-2024 Evaluation note Diagnosis Onset Date Resolution CHF (congestive heart failure) acute July 09 10:48am 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 acute July 09 10:48am Ischemic cardiomyopathy acute F eb2024 10:48am [facility] Work Phone: 1(801) 241-582601-15-2025 Evaluation note* Diagnosis Onset Date Resolution Status [...] Ischemic cardiomyopathy acute F ebruary 2024 10:48am [facility] Work Phone: 1(872) 426-560605-08-2024 Consult note Author Jazmin Oliveira [facility] October 10, 2023 10:50am Note Date/Time October 10, 2023 10:50a m [facility] Medical Records Department [address] [place] [address] Counseling Note - Pharmacy 10/10/23 1050 MR#: [id number] Acct: [id number] Name: SHERRIE LOZANO Rep #:[id number] : 1935 88 From: Jazmin Oliveira PCP: Dr. Viet Lovett MD Status:ADM I N Y Location: [facility] NT316-8 Pharmacy [place] Med Reconciliation Pharmacy Service has performed discharge [...] Signature (if applicable): Date CC: ~ Signed [facility] Work Phone: 1(442) 108-636605-07-2024 Progress note Author Tammi Frost [facility] October 09, 2023 4:09pm Note Date/Time October 09, 2023 4:09pm [facility] Medical Records Department [address] [facility] [place] [address] Progress Note - Hospitalist 10/09/23 1607 MR#: [id number] Acct: [id number] Name: SHERRIE LOZANO Rep #:[id number] : 1935 88 From: Tammi Frost DO PCP: Dr. 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 Patient's been medically ready for discharge since 10/04/2023. Charges/Coding Visit Charges Inpatient E&M: 53927 Subs Hosp L1 10/09/23 1609 <Electronically signed by Tammi Frost DO> Cosigner Signature (if applicable): CC: ~ Signed [facility] Work Phone: 1(574) 816-517405-06-2024 Progress note Author Tammi Frost [facility] October 08, 2023 5:12pm Note Date/Time October 08, 2023 5:12pm [facility] Medical Records Department [address] [place] [address] Progress Note - Hospitalist 10/08/23 1705 MR#: [id number] Acct: [id number] Name: SHERRIE LOZANO Rep #:[id number] : 1935 88 From: Tammi Frost DO PCP: Dr. Viet Lovett MD Status:ADM I N Location: [facility] AJ083-9 Reason for Visit Reason for Visit: Left hip pain status post fall Subjective Subjective Patient denies any issues currently. Unfortunately, insurance is out of state and does not cover [facility]. They are making exception and currently reviewing. 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 Patient's been medically ready for discharge since 10/04/2023. Charges/Coding Visit Charges Inpatient E&M: 53421 Subs Hosp L2 10/08/23 1712 <Electronically signed by Tammi Frost DO> Cosigner Signature (if applicable): CC: ~ Signed [facility] Work Phone: 1(531) 724-496005-06-2024 Discharge summary Author Tammi Frost [facility] October 08, 2023 10:21am Note Date/Time October 08, 2023 10:21a m [facility] Medical Records Department [address] [place] [address] Transfer to [facility] MR#: [id number] Acct: [id number] Name: SHERRIE LOZANO Rep #:[id number] : 1935 88 From: Tammi Frost DO PCP: Dr. Viet Lovett MD Status:ADM I N Certification of patient admission REQUIRED AT TIME OF ADMISSION. I CERTIFY THAT POST-HOSPITAL ECF SERVICES ARE REQUIRED TO BE GIVEN ON AN IN-PATIENT BASIS BECAUSE OF THE ABOVE NAMED PATIENT'S NEED FOR INTERMEDIATE CARE ON A CONTINUING BASIS FOR THE CONDITION(S) FOR WHICH HE/SHE WAS RECEIVING IN-PATIENT HOSPITAL SERVICES PRIOR TO HIS/HER TRANSFER TO [facility]. 10/08/23 1021<Electronically signed by Tammi Frost DO> [...] Other malaise Allergies/Procedures Done in Hospital Allergies Pjpopsy-YVI-PzO Reductase Inhibitor Adverse Reaction (Mild, Verified 09/29/23 [...] Waite MD; Dr. Viet Lovett MD ~ [facility] Work Phone: 1(839) 224-609805-05-2024 Progress note Author Joon Yuen [facility] May 5th, 2024 12:45pm Note Date/Time October 07, 2023 11:16a [facility] Medical Records Department [address] [place] [address] Progress Note - Hospitalist 10/07/23 1115 MR#: [id number] Acct: [id number] Name: SHERRIE LOZANO Rep #:[id number] : 1935 88 From: Joon garcía DO PCP: Dr. Viet Lovett MD Status:ADM I N Location: [place] [address]645-1 Reason for Visit Reason for Visit: Diagnoses [...] 04/30/24 12:07 RMA (Rec: 10/02/23 12:08 RMA [id number]) Nutrition Malnutrition Evidence of Malnutrition Exists Yes [...] Patient is an 88-year-old female who presented [facility] ED on 09/29/2023 after a fall with [...] management following. Lives in assisted living side [facility], planning for discharge to SNF side [...] 25 minutes. Charges/Coding Visit Charges Inpatient E&M: 33907 Subs Hosp L1 10/07/23 5196 <Electronically signed by Joon Yuen DO> Cosigner Signature (if applicable): CC: ~ Signed [facility] Work Phone: 1(374) 619-749105-04-2024 Progress note Author Joon eun [facility] October 06, 2023 11:01am Note Date/Time October 06, 2023 9:30am [facility] Medical Records Department [address] [place] [address] Progress Note - Hospitalist 10/06/23 0930 MR#: [id number] Acct: [id number] Name: SHERRIE LOZANO Rep #:[id number] : 1935 88 From: Joon garcía DO PCP: Dr. Viet Lovett MD Status:ADM I N Location: [place] [address]-1 Reason for Visit Reason for Visit: Diagnoses [...] 10/02/23 12:07 RMA (Rec: 10/02/23 12:08 RMA [id number]) Nutrition Malnutrition Evidence of Malnutrition Exists Yes [...] Patient is an 88-year-old female who presented [facility] ED on 09/29/2023 after a fall with [...] management following. Lives in assisted living side [facility], planning for discharge to [facility] side there, has been complicated by insurance [...] 25 minutes. Charges/Coding Visit Charges Inpatient E&M: 92294 Subs Hosp L1 10/06/23 1101 <Electronically signed by Joon Yuen DO> Cosigner Signature (if applicable): CC: ~ Signed [facility] Work Phone: 1(806) 140-910405-03-2024 Progress note Author [facility] October 05, 2023 1:37pm Note Date/Time October 05, 2023 1:37pm [facility] Medical Records Department [address] [place] [address] Progress Note - Hospitalist 10/05/23 1335 MR#: [id number] Acct: [id number] Name: SHERRIE LOZANO Rep #:[id number] : 1935 88 From: Joon garcía DO PCP: Dr. Viet Lovett MD Status:ADM I N Location: [place] [address]-1 Reason for Visit Reason for Visit: Diagnoses [...] 10/02/23 12:07 RMA (Rec: 10/02/23 12:08 RMA [id number]) Nutrition Malnutrition Evidence of Malnutrition Exists Yes [...] Patient is an 88-year-old female who presented [facility] ED on 09/29/2023 after a fall with [...] management following. Lives in assisted living side [facility], planning for discharge to [facility] side there. Medically ready for discharge on [...] 25 minutes. Charges/Coding Visit Charges Inpatient E&M: 40210 Subs Hosp L1 10/05/23 1337 <Electronically signed by Joon Yuen DO> Cosigner Signature (if applicable): CC: ~ Signed [facility] Work Phone: 1(347) 308-884205-02-2024 Progress note Author Joon [facility] October 04, 2023 6:56pm Note Date/Time October 04, 2023 1:47pm [facility] Medical Records Department [address] [place] [place] [address] Progress Note - Hospitalist 10/04/23 1347 MR#: [id number] Acct: [id number] Name: SHERRIE LOZANO Rep #:[id number] : 1935 88 From: Joon garcía DO PCP: Dr. Viet Lovett MD Status:ADM I N Location: [place] [address] Reason for Visit Reason for Visit: Diagnoses [...] place. Patient currently resides with her at [facility] in the assisted living side. Current plan is for patient to discharge to prison side of [facility] once the insurance issues have been [...] 10/02/23 12:07 RMA (Rec: 10/02/23 12:08 RMA [id number]) Nutrition Malnutrition Evidence of Malnutrition Exists Yes [...] Patient is an 88-year-old female who presented [facility] ED on 09/29/2023 after a fall with [...] following. Lives in assisted living side of [facility], planning for discharge to SNF side [...] 35 minutes. Charges/Coding Visit Charges Inpatient E&M: 79115 Subs Hosp L2 10/04/23 0945 <Electronically signed by Joon Yuen DO> Cosigner Signature (if applicable): CC: ~ Signed [facility] Work Phone: 1(305) 892-814305-01-2024 Progress note Author Anson Waite [facility] October 03, 2023 1:28pm Note Date/Time October 03, 2023 1:20pm [facility] Medical Records Department [address] [place] [address] Progress Note - Hospitalist 10/03/23 1315 MR#: [id number] Acct: [id number] Name: SHERRIE LOZANO Rep #:[id number] : 1935 88 From: Anson Pritchard PCP: Dr. Viet Lovett MD Status:ADM I N Location: [place] [address] Reason for Visit Reason for Visit: Diagnoses [...] 10/02/23 12:07 RMA (Rec: 10/02/23 12:08 RMA [id number]) Nutrition Malnutrition Evidence of Malnutrition Exists Yes [...] PLAN: Plan 88-year-old female was admitted to [facility] floor after she lost her balance, left [...] Has Drake catheter. Give Tylenol prn for xgsg-hd-ecxydyir (level 1-5/10) pain or fever. Give Morphine [...] evidence of postoperative complication. Discussed with the case finisher to start for precertification/authorization for SNF 10/01: [...] 30%. No documentation available. She moved from [place] and has not established bike designer here but planning to establish with Dr. [...] EDT , Charges/Coding Visit Charges Inpatient E&M: 65672 Subs Hosp L2 10/03/23 1328 <Electronically signed by Anson Waite MD> Cosigner Signature (if applicable): CC: ~ Signed [facility] Work Phone: 1(535) 357-795304-30-2024 Progress note Author Anson Waite [facility] October 02, 2023 1:43pm Note Date/Time October 02, 2023 1:3 7pm [facility] Medical Records Department [address] [place] [address] Progress Note - Hospitalist 10/02/23 1335 MR#: [id number] Acct: [id number] Name: SHERRIE LOZANO Rep #:[id number] : 1935 88 From: Anson Pritchard PCP: Dr. Viet Lovett MD Status:ADM I N Location: [place] [address]-1 Reason for Visit Reason for Visit: Diagnoses [...] 10/02/23 12:07 RMA (Rec: 10/02/23 12:08 RMA [id number]) Nutrition Malnutrition Evidence of Malnutrition Exists Yes [...] 84.0 H, Lymph % (Auto) 7.3 L, [place] % (Auto) 7.4, Eos % (Auto) 0.6, [...] PLAN: Plan 88-year-old female was admitted to [facility] floor after she lost her balance, left [...] Has Drake catheter. Give Tylenol prn for pinx-or-iohqwdgm (level 1-5/10) pain or fever. Give Morphine [...] evidence of postoperative complication. Discussed with the case finisher to start for precertification/authorization for SNF 10/01: [...] 30%. No documentation available. She moved from [place] and has not established bike designer here but planning to establish with Dr. [...] EDT , Charges/Coding Visit Charges Inpatient E&M: 89563 Subs Hosp L2 10/02/23 1343 <Electronically signed by Anson Waite MD> Cosigner Signature (if applicable): CC: ~ Signed [facility] Work Phone: 1(247) 217-571604-29-2024 Progress note Author Anson Waite [facility] October 01, 2023 4:41pm Note Date/Time October 01, 2023 4:4 1pm [facility] Medical Records Department [address] [place] [address] Progress Note - Hospitalist 10/01/23 1632 MR#: [id number] Acct: [id number] Name: SHERRIE LOZANO Rep #:[id number] : 1935 88 From: Anson Pritchard PCP: Dr. Viet Lovett MD Status:ADM I N Location: [place] [address]-1 Reason for Visit Reason for Visit: Diagnoses [...] 09/30/23 15:18 RMA (Rec: 09/30/23 15:18 RMA [id number]) Nutrition Malnutrition Evidence of Malnutrition Exists Yes [...] 83.6 H, Lymph % (Auto) 6.6 L, [place] % (Auto) 9.1, Eos % (Auto) 0.0, [...] PLAN: Plan 88-year-old female was admitted to [facility] after she lost her balance, left knee [...] Has Drake catheter. Give Tylenol prn for kbmn-uk-iscaiocm (level 1-5/10) pain or fever. Give Morphine [...] evidence of postoperative complication. Discussed with the case finisher to start for precertification/authorization for SNF CKD [...] 30%. No documentation available. She moved from [place] and has not established bike designer here but planning to establish with Dr. [...] 83.6 H, Lymph % (Auto) 6.6 L, [place] % (Auto) 9.1, Eos % (Auto) 0.0, [...] EDT , Charges/Coding Visit Charges Inpatient E&M: 24174 Subs Hosp L2 10/01/23 1641 <Electronically signed by Anson Waite MD> Cosigner Signature (if applicable): CC: ~ Signed [facility] Work Phone: 1(137) 508-744504-29-2024 Progress [facility], [facility] 11:45am Note Date/Time October 01, 2023 11: 45am [facility] Medical Records Department [address] [place] [address] Progress Note - Orthopedic 10/01/23 1142 MR#: [id number] Acct: [id number] Name: SHERRIE LOZANO Rep #:[id number] : 1935 88 From: Amol Yoder DO PCP: Dr. Viet Lovett MD Status:ADM I N [facility] Subject[facility] Subjective Seen and examined. Pain controlled [...] 09/30/23 15:18 RMA (Rec: 09/30/23 15:18 RMA [id number]) Nutrition Malnutrition Evidence of Malnutrition Exists Yes [...] 83.6 H, Lymph % (Auto) 6.6 L, [place] % (Auto) 9.1, Eos % (Auto) 0.0, [...] wound check if patient is at a [facility] rehab or TCU I am happy to see her there instead. Call with any questions or concerns 10/01/23 7331 <Electronically signed by Amol Yoder DO> Cosigner Signature (if applicable): CC: ~ Signed [facility] Work Phone: 1(155) 586-814304-28-2024 Progress note Author Anson Waite [facility] September 30, 2023 12:41pm Note Date/Time September 30, 2023 7:5 4am [facility] Medical Records Department [address] [place] [address] Progress Note - Hospitalist 09/30/23 0752 MR#: [id number] Acct: [id number] Name: SHERRIE LOZANO Rep #:[id number] : 1935 88 From: Anson Pritchard PCP: Dr. Viet Lovett MD Status:ADM I N Location: [place] [address]-1 Reason for Visit Reason for Visit: Diagnoses [...] (Auto) 71.8 H, Lymph % (Auto) 19.6, [place] % (Auto) 5.8, Eos % (Auto) 1.6, [...] 77.8 H, Lymph % (Auto) 12.0 L, [place] % (Auto) 7.9, Eos % (Auto) 1.3, [...] 13:16 EDT Reading Location ID and State: [facility] [place] , Service support , Chest X-Ray 09/29/23 [...] PLAN: Plan 88-year-old female was admitted to [facility] floor after she lost her balance, left [...] Has Drake catheter. Give Tylenol prn for mtmm-ys-rgabgsmo (level 1-5/10) pain or fever. Give Morphine [...] 30%. No documentation available. She moved from [place] and has not established bike designer here but planning to establish with Dr. [...] (Auto) 71.8 H, Lymph % (Auto) 19.6, [place] % (Auto) 5.8, Eos % (Auto) 1.6, [...] 77.8 H, Lymph % (Auto) 12.0 L, [place] % (Auto) 7.9, Eos % (Auto) 1.3, [...] 13:16 EDT Reading Location ID and State: [facility] [place] , Service support , Chest X-Ray 09/29/23 14:25 IMPRESSION: Cardiac enlargement. No focal infiltrate. Electronically Signed: Enrrique Carty MD at 14:48 EDT Reading Location ID and State: [facility] [place] , Service support , Hip/Pelvis X-Ray 09/29/23 14:25 IMPRESSION: Left femoral neck fracture. Electronically Signed: Enrrique Carty MD at 14:49 EDT Reading Location ID and State: [facility] [place] , Service support , Charges/Coding Addendum Addendum: [...] is 40 minutes. Visit Charges Inpatient E&M: 59016 Subs Hosp L3 09/30/23 1241 <Electronically signed by Anson Waite MD> Cosigner Signature (if applicable): CC: ~ Signed [facility] Work Phone: 1(523) 437-206504-28-2024 Procedure [facility] 09-30-2023 Consult note Author Amol Yoder [facility] September 30, 2023 10:49am Note Date/Time September 30, 2023 10: 49am [facility] Medical Records Department [address] [place] [address] Consultation 09/30/23 1046 MR#: [id number] Acct: [id number] Name: SHERRIE LOZANO Rep #:[id number] : 1935 88 From: Amol Yoder DO PCP: Dr. Viet Lovett MD Status:ADM I N Location: [facility] RO217-8 Assessment & Plan Assessment/Plan (1) Fracture of [...] community ambulator with walker who lives with [facility] who presents after ground-level fall where her knee buckled landing ontoher left hip immediately had significant groin pain and inability ambulate x-rays taken in the emergency room department demonstrated displaced femoral neck fracture. [facility] Medical History Brain bleed CHF (congestive heart [...] Type Severity Reaction Status Date / Time Zqixyaj-CNL-CzO Reductase AdvReac Mild muscle Verified 09/29/23 12:42 [...] (Auto) 71.8 H, Lymph % (Auto) 19.6, [place] % (Auto) 5.8, Eos % (Auto) 1.6, [...] 77.8 H, Lymph % (Auto) 12.0 L, [place] % (Auto) 7.9, Eos % (Auto) 1.3, [...] 14:48 EDT Reading Location ID and State: [address] [place] [address] , Service support , Hip/Pelvis X-Ray 09/29/23 14:25 IMPRESSION: Left femoral neck fracture. Electronically Signed: Enrrique Carty MD at 14:49 EDT , 09/30/23 1049 <Electronically signed by Amol Yoder DO> Cosigner Signature (if applicable): CC: Dr. Viet Lovett MD~ Signed [facility] Work Phone: 1(834) 910-155804-27-2024 History and physical note Author Mehdi Cabrera [facility] September 29, 2023 6:39pm Note Date/Time September 29, 2023 2:2 7pm [facility] Medical Records Department [address] [place] [address] H&P Exam - Hospitalist 09/29/23 1407 MR#: [id number] Acct: [id number] Name: SHERRIE LOZANO Rep #:[id number] : 1935 88 From: Mehdi Lundy DO PCP: Dr. Viet Lovett MD Status:ADM I N Location: [facility] ND035-0 HPI - General General Date of Admission: 09/29/23 Date of Service: 09/29/23 Chief Complaint: Fall with Left Hip Fracture. HPI Narrative SHERRIE LOZANO, is a 88 F with a past medical history of essential hypertension, hyperlipidemia; with intolerance to statins, history of CAD; s/p stent, history of CHF; on Farxiga, history of arrhythmia on Amiodarone; s/p PPM/AICD, OA, legally blind and history of ICH; after fall (~6 weeks ago) with subsequent severe photosensitivity who presents to [facility] ERcomplaining of fall with Left hip fracture. [...] patient and her recently moved her from [place], [place] since she grew up in [place], [place]. In the ER her X-rays were positive for a Left femoral neck fracture with clinical evidenceof Left lateral elbow skin tears x 2 and she was then admitted to the general medical floor for ongoing care for a stay that is expected to be greater than 48hours. [facility], [facility] Medical History Brain bleed CHF (congestive heart [...] Type Severity Reaction Status Date / Time Jtxsjco-YRC-EiT Reductase AdvReac Mild muscle Verified 09/29/23 12:42 [...] 13:16 EDT Reading Location ID and State: [address] [place] [address] , Service support , Assessment & Plan [...] on strict bedrest. Give Tylenol prn for fzrr-sz-jfbzditk (level 1-5/10) pain or fever. Give Morphine [...] 55 minutes. Charges/Coding Visit Charges Inpatient E&M: 64174 Init Hosp L2 09/29/23 1839 <Electronically signed by Mehdi Crespo DO> Cosigner Signature (if applicable): CC: Dr. Mehdi Crespo DO; Dr. Viet Lovett MD~ Signed [facility] Work Phone: 1(656) 900-148504-27-2024 Discharge summary Author Grant Whitley [facility] September 29, 2023 2:48pm Note Date/Time September 29, 2023 12: 49pm [facility] Medical Records Department [address] [place] [address] Emergency Department Summary 09/29/23 MR#: [id number] Acct: [id number] Name: SHERRIE LOZANO Rep #:[id number] : 1935 88 From: Grant Whitley MD PCP: Dr. Viet Lovett MD Status:ADM I N Location: [place] [address] HPI HPI - Fall History of Present [...] woman. She and her recently moved from [place]. She grew up in [place]. They are returning to a assisted living [...] Type Severity Reaction Status Date / Time Owkybrn-ESF-RbC Reductase AdvReac Mild muscle Verified 09/29/23 12:42 [...] your Primary Care Provider. Call [facility] ([phone]) or report to the closest Emergency Room. [...] cc: Dr. Viet Lovett MD ~* Signed [facility] Work Phone: 1(409) 660-427904-27-2024 Discharge summary Author Grant Whitley [facility] September 29, 2023 2:48pm Note Date/Time September 29, 2023 12: 49pm [facility] Medical Records Department [address] [place] [address] Emergency Department Summary 09/29/23 MR#: [id number] Acct: [id number] Name: SHERRIE LOZANO Rep #:[id number] : 1935 88 From: Grant Whitley MD PCP: Dr. Viet Lovett MD Status:ADM I N Location: [facility] [id number] HPI HPI - Fall History of Present [...] woman. She and her recently moved from [place]. She grew up in [place]. They are returning to a assisted living [...] Type Severity Reaction Status Date / Time Wxipegr-UOD-EpJ Reductase AdvReac Mild muscle Verified 09/29/23 12:42 [...] problems, contact your Primary Care Provider. Call [facility] ([phone]) or report to the closest Emergency Room. [...] cc: Dr. Viet Lovett MD ~* Signed [facility] Work Phone: Evaluation note* Diagnosis Onset Date Resolution Status Contusion of pelvic region a cute Fracture of femoral neck, left, closed acute Injury due to fall acute ISTAP type 3 skin tear of left elbow acute [facility] Work Phone: Evaluation note* Diagnosis Onset Date [...] pacemaker acute S/P hip hemiarthroplasty acu te [facility] Work Phone: Reason for referral (narrative)No reason for referral [facility]: Chief Complaint and Reason [...] Date LABWORK May 07, 2024 5 :10am INTERMEDIATE LAB WORK May 15 5:00am INTERMEDIATE LAB WORK June 06, 2024 5:00am MONTHLY EXAM June 17, 2024 4 :00pm ESTABLISH ([facility]) June 18, 2024 1 :04pm NEW CONCERN June 24, 2024 9 :42am INTERMEDIATE LAB WORK June 26, 2024 5:00am Pacer Check Remote July 09, 2024 9 :00am NEW ENROLEE (SCANNED) July 09, 2024 10:48am MONTHLY EXAM July 31, 2024 9:35am MONTHLY EXAM August 12, 2024 3:1 5pm INTERMEDIATE LAB WORK August 13, 2024 5 :00am INTERMEDIATE LAB WORK August 13, 2024 6 :30am [...] MONTHLY EXAM August 12, 2024 3:1 5pm INTERMEDIATE LAB WORK August 13, 2024 5 :00am INTERMEDIATE LAB WORK August 13, 2024 6 :30am [...] Yes September 29, 2023 12:43pm Power of Sanitation Worker Yes September 28 12:43pm Name of Medical Power of Sanitation Worker , Archana de la cruz September 29, 2023 12:43pm Advance Directive Response Recorded Date/ Time Name of Medical Power of Sanitation Worker Archana bullard September 29, 2023 3:25pm Living Will Yes September 29, 2023 3:25pm Power of Sanitation Worker Yes September 28 3:25pm Summary Purpose Family [...] Anson Waite MD Other Provider Active Dr. Amol Yoder DO Attending Provider, Other Prov ider [...] Status: Inactive Member Role Status Dates Dr. Viet Lovett MD Primary Care Provider Active Start: [...] 2024 End: June 24, 2024 Lashae Garner BLOOD BANK BUSINESS MANAGER, BLOOD BANK BUSINESS MANAGER-C Attending Provider Active Start: June 24, 2024 [...] End: September 02, 2024 Lashae Garner NP, BLOOD BANK BUSINESS MANAGER-C Attending Provider Active Start: September 02, 2024 [...] section and content) DATE CREATED AUTHOR 11/02/2024 [facility] FOR RECORDS PERTAINING TO PATIENTS WHO ARE [...] BE BASED ON THE PRIMARY CLINICAL RECORDS. [facility] [employer] [facility]. provides no warranty or guarantee of the accuracy or completeness of information in this document.
[2024-11-05 07:26] LABS: Sodium Level 140 mmol/L (133-145)
== END ==
LOC: OLS.WHLEAS 05:00
PROVIDERS: PCP Internal Medicine; Visit Provider Internal Medicine
DX: E87.0 Hyperosmolality and hypernatremia (principal)
CPT/HCPCS: 36415; 84295

== ENCOUNTER → 2024-12-03 05:00 | Outpatient (REF) | payer MEDICARE, MEDICAID, SELFPAY ==
[2024-12-03 08:31] LABS: Hematocrit 40.2 % (37-47); Hemoglobin 13.1 g/dL (12.0-15.0); Immature Granulocytes Count 0.020 X10^3/uL (0.0-0.0); Mean Corp Hgb Conc 32.6 g/dL (32-36); Mean Corpuscular Volume 96.9 fL (81-99); Mean Platelet Vol. 10.4 fl (6.2-12.0); NRBC Flagged by Analyzer 0 % (0-5); Platelet Count 317 K/mm3 (150-450); RBC Distribution Width CV 13.1 % (11.6-14.6); RBC Distribution Width SD 46.8 fl (35.1-43.9); Red Blood Count 4.15 M/mm3 (4.2-5.4); White Blood Count 5.8 K/mm3 (4.4-11.0)
[2024-12-03 08:59] LABS: Anion Gap 11 (5-15); BUN 33 mg/dL (4-19); BUN/Creat Ratio 29.1 RATIO (10-20); Calcium,Total 9.1 mg/dL (7.6-11.0); Carbon Dioxide 24.7 mmol/L (21.0-32.0); Chloride 105 mmol/L (98-108); Glucose 102 mg/dL (70-99); Potassium 4.0 mmol/L (3.3-5.1); Vitamin D,25 Hydroxy 35.4 ng/mL (30-100)
== END ==
LOC: OLS.WHLEAS 05:00
PROVIDERS: PCP Internal Medicine; Visit Provider Internal Medicine
DX: E78.5 Hyperlipidemia, unspecified (principal); E03.9 Hypothyroidism, unspecified; R53.82 Chronic fatigue, unspecified; I50.22 Chronic systolic (congestive) heart failure
CPT/HCPCS: 36415; 80048; 82306; 85025

== ENCOUNTER → 2024-12-31 05:00 | Outpatient (REF) | payer MEDICARE, MEDICAID, SELFPAY ==
[2024-12-31 08:02] LABS: Anion Gap 10 (5-15); BUN 24 mg/dL (4-19); BUN/Creat Ratio 23.3 RATIO (10-20); Calcium,Total 8.9 mg/dL (7.6-11.0); Carbon Dioxide 23.9 mmol/L (21.0-32.0); Chloride 106 mmol/L (98-108); Glucose 103 mg/dL (70-99); Magnesium 2.4 mg/dL (1.5-2.2); Potassium 4.0 mmol/L (3.3-5.1)
== END ==
LOC: OLS.WHLEAS 05:00
PROVIDERS: PCP Internal Medicine; Visit Provider Internal Medicine
DX: E11.22 Type 2 diabetes mellitus with diabetic chronic kidney disease (principal); I50.22 Chronic systolic (congestive) heart failure; N18.32 Chronic kidney disease, stage 3b; I49.9 Cardiac arrhythmia, unspecified; I42.9 Cardiomyopathy, unspecified
CPT/HCPCS: 36415; 80048; 83735

== ENCOUNTER → 2025-01-07 | Outpatient (REF) | payer MEDICARE, MEDICAID, SELFPAY ==
[2025-01-07 08:38] LABS: Ferritin 151 ng/mL (22-378)
[2025-01-07 08:39] LABS: Iron 49 ug/dL (50-170); Iron Binding Capacity,Unsat 175 ug/dL (228-428); Magnesium 2.8 mg/dL (1.5-2.2)
[2025-01-07 09:20] LABS: Iron Binding Capacity,Total 224 ug/dL (250-450)
== END ==
LOC: OLS.WHLEAS 05:00
PROVIDERS: PCP Internal Medicine; Visit Provider Internal Medicine
DX: D64.9 Anemia, unspecified (principal); I50.22 Chronic systolic (congestive) heart failure; E11.22 Type 2 diabetes mellitus with diabetic chronic kidney disease; N18.32 Chronic kidney disease, stage 3b; E03.9 Hypothyroidism, unspecified
CPT/HCPCS: 36415; 82728; 83540; 83550; 83735; 84443

== ENCOUNTER → 2025-01-21 05:00 | Outpatient (REF) | payer MEDICARE, MEDICAID, SELFPAY ==
[2025-01-21 07:59] LABS: Magnesium 2.5 mg/dL (1.5-2.2)
== END ==
LOC: OLS.WHLEAS 05:00
PROVIDERS: PCP Internal Medicine; Visit Provider Internal Medicine
DX: I50.22 Chronic systolic (congestive) heart failure (principal); E11.22 Type 2 diabetes mellitus with diabetic chronic kidney disease; N18.32 Chronic kidney disease, stage 3b; I49.9 Cardiac arrhythmia, unspecified; I42.9 Cardiomyopathy, unspecified; E83.42 Hypomagnesemia
CPT/HCPCS: 36415; 83735

== ENCOUNTER → 2025-02-18 05:25 | Outpatient (REF) | payer MEDICARE, MEDICAID, SELFPAY | LOC: OLS.WHLEAS 05:25 | PROVIDERS: PCP Internal Medicine; Visit Provider Internal Medicine | DX: E03.9 Hypothyroidism, unspecified (principal); I50.22 Chronic systolic (congestive) heart failure; E11.22 Type 2 diabetes mellitus with diabetic chronic kidney disease; N18.32 Chronic kidney disease, stage 3b | CPT/HCPCS: 36415; 84443 ==

== ENCOUNTER → 2025-04-01 | Outpatient (REF) | payer MEDICARE, MEDICAID, SELFPAY ==
--- OUTSIDE RECORDS SUMMARY | 2025-04-01 04:22 | XMS RPT_ITS | CCD ---
Author Organization [facility] Inform ion Partnership [facility] Care Team Providers Care Electric Spot Welder Name Role Phone Dr. Grant Whitley Emergency Provider Dr. Viet Lovett Primary Care Provider Dr. Mehdi Crespo Admit Provider Unavailabl e Dr. Mehdi Crespo Other Provider Unavailabl e Dr. Anson Waite Attending Provider Dr. Anson Waite Other Provider Dr. Anson Waite Referring Provider Dr. Amol Yoder Attending Provider Dr. Stas Wilson Attending Provider Dr. Amol Yoder Other Provider Dr. Joon Yuen Attending Provider [phone] Dr. Joon Yuen Other Provider Dr. Tammi Frost Attending Provider Dr. Tammi Frost Other Provider Dr. Viet Lovett MD Primary Care Provider Sharif Ramos MD Attending Provider Sharif Garcia MD Primary Care Provider Dr. Sharif Pierce MD Attending Provider Sharif Ramos MD Referring Provider Nixon Hawthorne MD, Dr. Mendez Attending Provider Lashae Galeano Attending Provider Dr. Evon Ramos MDbe Primary Care Provider Marine ZAZUETA, Dr. Mendez Referring Provider [phone] Jamar Isabel Attending Provider [phone] Rachel ZAZUETA, Sharif Primary Care Provider [facility] jamie Hawthorne MD, Dr. Mendez Attending Provider [phone] Rachel ZAZUETA, Dr. Olguin Attending Provider [phone] Rachel ZAZUETA, Sharif Attending Provider Unavailmichael Ramos MD, Sharif Referring Provider UnavailLashae Bahena Attending Provider Rachel ZAZUETA, Dr. Olguin Primary Care Provider Marine ZAZUETA, Dr. Mendez Attending Provider [phone] Marine ZAZUETA, Dr. Mendez Referring Provider [phone] Rachel ZAZUETA, Dr. Olguin Primary Care Provider Rachel ZAZUETA, Dr. Olguin Attending Provider [phone] Rachel ZAZUETA, Sharif Attending Provider Unavailmichael Hawthorne MD, Dr. Mendez Attending Provider [phone] Marine ZAZUETA, Dr. Mendez Referring Provider [phone] Jamar Isabel Attending Provider [phone] Rachel ZAZUETA, Dr. Olguin Primary Care Provider Lashae Galeano Attending Provider Viet Lovett Primary Care Unavailable Oleghe OLS, Efewongbe Attending Unavailabl e Oleghe OLS, Efewongbe Attending Unavailabl e Oleghe, Efewongbe Primary Care Unavailable Oleghe, Efewongbe Primary Care Unavailable Oleghe OLS, Efewongbe Attending Unavailabl e Oleghe OLS, Efewongbe Attending Unavailabl e Oleghe, Efewongbe Primary Care Unavailable Oleghe OLS, Efewongbe Attending Unavailabl e Oleghe, Efewongbe Primary Care Unavailable Oleghe OLS, Efewongbe Attending Unavailabl e Oleghe OLS, Efewongbe Referring Unavailabl e Oleghe, Efewongbe Primary Care Unavailable Oleghe, Efewongbe Primary Care Unavailable [place] KEY HOLDER, Lashae Attending Unavailable Oleghe, Efewongbe Primary Care Unavailable [place] KEY HOLDER, Lashae Attending Unavailable Oleghe, Efewongbe Primary Care Unavailable Oleghe, Efewongbe Attending Unavailable Oleghe, Efewongbe Primary Care Unavailable Oleghe, Efewongbe Attending Unavailable Oleghe OLS, Efewongbe Attending Unavailabl e Rachell, Viet Primary Care Unavailable Oleghe OLS, Efewongbe Attending Unavailabl e [place], Viet Primary Care Unavailable Oleghe OLS, Efewongbe Attending Unavailabl e Oleghe, Efewongbe Primary Care Unavailable Oleghe OLS, Efewongbe Attending Unavailabl e Oleghe OLS, Efewongbe Primary Care Unavailabl e Marine, Andrea Attending Unavailable Marine, Austin Referring Unavailable Oleghe, Efewongbe Primary Care Unavailable Oleghe OLS, Efewongbe Primary Care Unavailabl e Marine, Austin Attending Unavailable [place] KEY HOLDERLashae Attending Unavailable Oleghe OLS, Efewongbe Primary Care Unavailabl e Oleghe, Efewongbe Attending Unavailable Oleghe OLS, Efewongbe Primary Care Unavailabl e Jamar Isabel Attending Unavailable Oleghe, Efewongbe Primary Care Unavailable Oleghe, Efewongbe Primary Care Unavailable Marine, Austin Referring Unavailable Marine, Austin Attending Unavailable Oleghe, Efewongbe Primary Care Unavailable Oleghe OLS, Efewongbe Attending Unavailabl e Oleghe OLS, Efewongbe Attending Unavailabl e Oleghe, Efewongbe Primary Care Unavailable Oleghe OLS, Efewongbe Attending Unavailabl e Oleghe OLS, Efewongbe Primary Care Unavailabl e Oleghe OLS, Efewongbe Attending Unavailabl e Oleghe OLS, Efewongbe Primary Care Unavailabl e Oleghe, Efewongbe Primary Care Unavailable Jamar Isabel Attending Unavailable Oleghe, Efewongbe Primary Care Unavailable [place] KEY HOLDER Lashae Attending Unavailable Oleghe, Efewongbe Primary Care Unavailable Oleghe, Efewongbe Attending Unavailable Oleghe, Efewongbe Primary Care Unavailable Marine, Andrea Attending Unavailable Marine, Austin Referring Unavailable Marine, Andrea Attending Unavailable Oleghe, Efewongbe Primary Care Unavailable Oleghe, Efewongbe Primary Care Unavailable Oleghe, Efewongbe Attending Unavailable Oleghe OLS, Efewongbe Primary Care Unavailabl e Jamar Isabel Attending Unavailable Oleghe OLS, Efewongbe Primary Care Unavailabl e Oleghe OLS, Efewongbe Referring Unavailabl e Marine, Austin Attending Unavailable Oleghe OLS, Efewongbe Attending Unavailabl e Oleghe, Efewongbe Primary Care Unavailable Oleghe OLS, Efewongbe Primary Care Unavailabl e Oleghe, Efewongbe Attending Unavailable Allergies Allergy Classification Reported Allergen(s) Allergy Type Date of Onset Reaction(s) Facility (12 sources) Tydqjre-Mhp-Spk Reductase Inhibitor Propensity to adverse reactions [address] [facility] (1 source) Lancvah-Heu-Oky Reductase Inhibitor Drug allergy (disorder) [address] [facility] Repository Medications Current Medications Medication Drug Class(es) Dates Sig (Normalized) Sig (Original) amiodarone hydrochloride 100 mg oral tablet (11 sources) Antiarrhythmic Start: 09-29-2023 take 1 tablet by mouth once daily Amiodarone 100 mg tablet Active 100 mg PO DAILY September 29, 2023 12:00am heart failure aspirin 81 mg delayed release oral tablet (11 sources) Platelet Aggregation Inhibitor, Nonsteroidal Anti-inflammatory Drug Start: 09-29-2023 take 1 tablet by mouth once daily Aspirin 81 mg tablet,delayed release (DR/EC) Active 81 mg PO DAILY September 29, 2023 12:00am cardiac calcium carbonate 500 mg chewable tablet (11 sources) Start: 10-08-2023 take 1 tablet by mouth three times daily at mealtime Calcium Carbonate 200 mg calcium (500 mg) Tablet,Chewable Active 500 mg PO 3 TIMES DAILY WITH MEALS 0 October 08, 2023 12:00am cholecalciferol 0.025 mg oral tablet (11 sources) Vitamin D Start: 10-08-2023 take 1 tablet by mouth once daily Cholecalciferol (Vitamin D3) 25 mcg (1,000 unit) Tablet Active 25 ug PO DAILY 0 October 08, 2023 12:00am dapagliflozin 10 mg oral tablet (20 sources) Sodium-Glucose Cotransporter 2 Inhibitor Start: 09-29-2023 End: 06-18-2024 take 1 tablet by mouth once daily in the morning Dapagliflozin Propanediol (Farxiga) 10 mg tablet Active 10 mg PO EVERY MORNING 60 2 June 18, 2024 1:00am docusate sodium 50 mg / sennosides, long term 8.6 mg oral tablet (11 sources) Start: 10-08-2023 Sennosides-Docusate Sodium (Stool Softener-Stimulant Laxat) 8.6-50 mg Tablet Active 2 {tbl} PO TWICE A DAY 0 October 08, 2023 12:00am Food Supplemt, Lactose-Reduced (Ensure Plus High Protein) 0.08 gram-1.5 kcal/mL Liquid (11 sources) Start: 10-08-2023 Food Supplemt, Lactose-Reduced (Ensure [...] ML PO 3 TIMES DAILY WITH MEALS October 08, 2023 12:00am furosemide 40 mg oral tablet (11 sources) Loop Diuretic Start: 09-29-2023 take 1 tablet by mouth once daily Furosemide 40 mg tablet Active 40 mg PO DAILY September 29, 2023 12:00am heart failure levothyroxine sodium 0.025 mg oral tablet (10 sources) l-Thyroxine Start: 06-18-2024 Levothyroxine 25 mcg tablet Active ug PO June 18, 2024 1:00am magnesium sulfate 100 mg oral capsule (11 sources) Start: 09-29-2023 take 4 capsules by mouth once daily Magnesium Sulfate 100 mg capsule Active 400 mg PO DAILY September 29, 2023 12:00am muscle cramps Start: 09-29-2023 take 400 mg by mouth once kate y Magnesium Sulfate Active 400 MG PO DAILY September 29, 2023 12:00am Menthol / Zinc Oxide (11 sources) Start: 10-08-2023 Menthol-Zinc O xide (Calmoseptine) 0.44-20.6 % Ointment Active 1 NMA TOPICAL TWICE A DAY 0 0 October 08, 2023 12:00am Please contact [...] succinate 25 mg extended release oral tablet (20 sources) beta-Adrenergic John Start: 06-18-2024 take 1 tablet by mouth once daily Metoprolol Succinate (Toprol Xl) 25 mg tablet extended release 24 hr Active 25 mg PO daily 60 3 June 18, 2024 1:00am Start: 09-29-2023 End: 06-18-2024 take 2 tablets by mouth once daily Metoprolol Succinate 25 mg tablet extended release 24 hr Discontinued 12.5 mg PO DAILY September 29, 2023 12:00am June 18, 2024 2:16pm BP Start: 09-29-2023 take 12.5 mg by mout h once daily Metoprolol Succinate Active 12.5 MG PO DAILY September 29, 2023 12:00am sacubitril 24 mg / valsartan 26 mg oral tablet (11 sources) Angiotensin 2 Receptor John Start: 09-29-2023 Sacubitril-Valsartan (Entresto) 24-26 mg tablet Active 1 {tbl} PO TWICE A DAY September 29, 2023 12:00am heart Completed/Discontinued Medications Medication Drug Class(es) Dates Sig (Normalized) Sig (Original) acetaminophen 500 mg oral tablet (20 sources) Start: 10-08-2023 End: 10-26-2023 take 2 [...] 2023 12:00am apixaban 5 mg oral tablet (11 sources) Factor Xa Inhibitor Start: 10-08-2023 End: 10-23-2023 take 2.5 mg by mouth twice daily Apixaban (Eliquis) 5 mg Tablet Discontinued 2.5 mg PO TWICE A DAY 0 October 08, 2023 12:00am October 22, 2023 12:00am October 23, 2023 12:05am X 3 weeks ciprofloxacin 250 mg oral tablet (10 sources) Quinolone Antimicrobial Start: 10-26-2023 End: 06-18-2024 take 1 tablet by mouth twice daily Ciprofloxacin Hcl (Cipro) 250 mg tablet Discontinued 250 mg PO TWICE A DAY October 26, 2023 12:00am June 18, 2024 2:17pm oxyCODONE hydrochloride 5 mg oral tablet (11 sources) Opioid Agonist Start: 10-08-2023 End: 06-18-2024 take 2.5 mg by mouth every six hours as needed for pain Oxycodone 5 mg Tablet Discontinued 2.5 mg PO EVERY 6 HOURS as needed for pain 4 2 0 October 08, 2023 June 18, 2024 2:17pm Closed fracture of neck of femur Status post hip hemiarthroplasty Presence of unspecified artificial hip joint Start: 10-08-2023 take 2.5 mg by mouth every six hours Oxycodone Active 2.5 MG PO EVERY 6 HOURS 4 2 October 08, 2023 Problems Active Problems Problem Classification Problem Date Documented Da te Episodic/Chronic Acute and unspecified renal failure (1 source) Unspecified kidney failure; Translations: [Unspecified kidney failure] Onset: 01-16-2025 Chronic Acute cerebrovascular disease (10 sources) Cerebral hemorrhage; Translations: [Nontraumatic intracerebral hemorrhage, unspecified] 06-09-2024 Chronic Blindness and vision defects (10 sources) Legal blindness; Translations: [Legal blindness, as defined in [place]] 06-09-2024 Chronic Cardiac dysrhythmias (2 sources) Cardiac arrhythmia, unspecified; Translations: [Cardiac arrhythmia, unspecified] Onset: 09-04-2024 Chronic Chronic kidney disease (10 sources) Chronic kidney disease stage 3B ; Translations: [Stage 3b chronic kidney disease] 06-09-2024 Chronic Chronic kidney disease (1 source) Chronic kidney disease; Translations: [Chronic kidney disease, stage 3b] Onset: 03-11-2025 Conduction disorders (20 sources) 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ER-O ICM; NOT MRI compatible Congestive heart failure; nonhypertensive (18 sources) Congestive heart failure; Translations: [Heart failure, unspecified] Onset: 08-05-2024 06-09-2024 Chronic Coronary atherosclerosis and other heart disease (20 sources) Coronary arteriosclerosis; Translations: [Atherosclerotic heart disease of hoh coronary artery without angina pectoris] Onset: 07-08-2024 06-09-2024 Chronic Deficiency and other anemia (10 sources) Chronic anemia; Translations: [Anemia, unspecified] 06-09-2024 Episodic Deficiency and other anemia (1 source) Vitamin B12 deficiency anemia, unspecified; Translations: [Vitamin B12 deficiency anemia, unspecified] Onset: 01-16-2025 Episodic Deficiency and other anemia (1 source) Anemia, unspecified; Translations: [Anemia, unspecified] Onset: 01-16-2025 Episodic Diabetes mellitus with complications (1 source) Type 2 diabetes mellitus with diabetic chronic kidney disease; Translations: [Type 2 diabetes mellitus with diabetic chronic kidney disease] Onset: 03-11-2025 Chronic Disorders of lipid metabolism (13 sources) Hyperlipidemia; Translations: [Hyperlipidemia, unspecified] Onset: 09-04-2024 06-09-2024 Chronic E Codes: Fall (14 sources) Falling injury; Translations: [Unspecified fall, initial encounter] 09-29-2023 Episodic Essential hypertension (13 sources) Essential hypertension; Translations: [Essential (primary) hypertension] Onset: 07-08-2024 06-09-2024 Chronic Fracture of neck of femur (hip) (17 sources) Closed fracture of neck of femur; Translations: [Fracture of unspecified part of neck of left femur, initial encounter for closed fracture] Onset: 01-19-2025 09-29-2023 Episodic Genitourinary symptoms and ill-defined conditions (10 sources) Incontinence; Translations: [Unspecified urinary incontinence] 06-09-2024 Chronic Malaise and fatigue (2 sources) Chronic fatigue, unspecified; Translations: [Chronic fatigue, unspecified] Onset: 12-19-2024 Chronic Malaise and fatigue (12 sources) Asthenia; Translations: [Other malaise] 10-04-2023 Episodic Open wounds of extremities (14 sources) Open wound of left elbow region; Translations: [Laceration without foreign body of left elbow, initial encounter] 09-29-2023 Episodic Other aftercare (10 sources) Follow-up status; Translations: [Encounter for other orthopedic aftercare] 06-09-2024 Episodic Other aftercare (1 source) Encounter for other orthopedic aftercare; Translations: [Encounter for other orthopedic aftercare] Onset: 01-19-2025 Episodic Other circulatory disease (12 sources) H/O: heart failure; Translations: [Personal history of other diseases of the circulatory system] 09-29-2023 Episodic Other circulatory disease (12 sources) History of cerebral hemorrhage; Translations: [Personal history of other diseases of the circulatory system] 09-29-2023 Episodic Other circulatory disease (2 sources) Personal history of other diseases of the circulatory system; Translations: [Personal history of other diseases of circulatory system] 10-10-2023 Episodic Other connective tissue disease (11 sources) History of repair of hip joint; Translations: [Presence of unspecified artificial hip joint] 10-01-2023 Chronic Other connective tissue disease (1 source) Presence of unspecified artificial hip joint; Translations: [Hip joint replacement] 10-10-2023 Chronic Other connective tissue disease (1 source) Muscle wasting and atrophy, not elsewhere classified, right lower leg; Translations: [Muscle wasting and atrophy, not elsewhere classified, right lower leg] Onset: 01-19-2025 Episodic Other endocrine disorders (10 sources) Secondary hyperaldosteronism; 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 Other nervous system disorders (10 sources) Impairment of balance; Translations: [Other abnormalities of gait and mobility] 06-09-2024 Episodic Other nutritional; endocrine; and metabolic disorders (1 source) Hypomagnesemia; Translations: [Hypomagnesemia] Onset: 02-18-2025 Chronic Coco-; endo-; and myocarditis; cardiomyopathy (except that caused by tuberculosis or sexually transmitted disease) (1 source) Cardiomyopathy, unspecified; Translations: [Cardiomyopathy, unspecified] Onset: 03-11-2025 Chronic Superficial injury; contusion (14 sources) Contusion of pelvic region; Translations: [Contusion of lower back and pelvis, initial encounter] 09-29-2023 Episodic Thyroid disorders (2 sources) Hypothyroidism, unspecified; Translations: [Hypothyroidism, unspecified] Onset: 01-19-2025 Chronic Urinary tract infections (10 sources) Urinary tract infectious disease; Translations: [Urinary tract infection, site not specified] 06-09-2024 Episodic Past or Other Problems Problem Classification Problem Date Documented Date Episodic/Chronic Coronary atherosclerosis and other heart disease (13 sources) Stented coronary artery; Translations: [Presence of coronary angioplasty implant and graft] Onset: 06-07-2022 06-18-2024 Episodic Comment on above: PCI x3 LAD x2 left c ircumflex Fluid and electrolyte disorders (1 source) Hyperosmolality and hypernatremia; Translations: [Hyperosmolality and hypernatremia] Onset: 11-17-2024 Episodic Results Test Name Value Interpretation Reference Range Facility Magnesium measurement (mass/ volume)Ordered By: Sharif Ramos on 01-21-2025 Magnesium (Unsp spec) [Mass/Vol] 2.5 mg/dL High 1.5-2.[address] [facility] Iron measurement (mass/mass) Ordered By: Sharif Ramos on 01-07-2025 Iron (Unsp spec) [Mass/Mass] 49 ug/dL Low 50-[address] [facility] Magnesium measurement (mass/ volume)Ordered By: Sharif Ramos on 01-07-2025 Magnesium (Unsp spec) [Mass/Vol] 2.8 mg/dL High 1.5-2.[address] [facility] No Panel InformationOrdered By: Sharif Ramos on 01-07-2025 Unsaturated Iron Binding Capacity 175 ug/dL Low 228-[address] [facility] Comment on above: Hemolysis present, R esults could be affected. Serum or plasma ferritin brooke surement (mass/volume)Ordered By: Sharif Ramos on 01-07-2025 Ferritin [Mass/Vol] 151 ng/mL 22-378 [facility] Serum or plasma iron saturat ion measurement (mass fraction)Ordered By: Sharif Ramos on 01-07-2025 Iron saturation [Mass fraction] 21.9 % 13-[address] [facility] Comment on above: Previous reported re sult: 22.0 %Edited by: NORMA on 01/07/25:0920 TSH DL <= 0.005 mIU/L QnOrde red By: Sharif Ramos on 01-07-2025 TSH Qn 6.650 uIU/mL High 0.300-4.[address] [facility] Anion gap in Serum or Plasma Ordered By: Sharif Ramos on 12-31-2024 Anion gap [Moles/Vol] 10 mmol/L 5-15 [facility] BUN/creatinine ratioOrdered By: Sharif Ramos on 12-31-2024 Urea nitrogen/Creatinine [Mass ratio] 23.3 mg/mg High 10-[address] [facility] Carbon dioxide, total [Moles /volume] in Central venous bloodOrdered By: Sharif Ramos on 12-31-2024 CO2 [Moles/Vol] 23.9 mmol/L 21.0-32.[address] [facility] Chloride assayOrdered By: Cristina Ramos on 12-31-2024 Chloride [Moles/Vol] 106 mmol/L 98-108 [facility] Glomerular filtration rate ( GFR) estimation/1.73 sq m using serum, plasma, or whole bOrdered By: Sharif Ramos on 12-31-2024 GFR/1.73 sq M.predicted among non-blacks MDRD (S/P/Bld) [Vol rate/Area] 52 mL/min/{1.73_m2} Low >[address] [facility] Comment on above: mL/min/1.73m2 CKD-EP I Creatinine Equation (2020) Magnesium measurement (mass/ volume)Ordered By: Sharif Ramos on 12-31-2024 Magnesium (Unsp spec) [Mass/Vol] 2.4 mg/dL High 1.5-2.[address] [facility] Potassium measurement (mass/ volume)Ordered By: Evonmike Latashagregg on 12-31-2024 Potassium (Unsp spec) [Mass/Vol] 4.0 mmol/L 3.3-5.[address] [facility] Serum creatinine measurement (mass/volume)Ordered By: Sharif Ramos on 12-31-2024 Creatinine [Mass/Vol] 1.04 mg/dL 0.70-1.20 [facility] Serum glucose measurement (m ass/volume)Ordered By: Cristinakarsonshahram Ramos on 12-31-2024 Glucose [Mass/Vol] 103 mg/dL High 70-99 [facility] Serum or plasma calcium clarke urement (mass/volume)Ordered By: Sharif Ramos on 12-31-2024 Calcium [Mass/Vol] 8.9 mg/dL 7.6-11.0 [facility] Serum or plasma urea nitroge n measurement (mass/volume)Ordered By: Sharif Pagangregg on 12-31-2024 Urea nitrogen [Mass/Vol] 24 mg/dL High 4-[address] [facility] Sodium levelOrdered By: Snow Ramos on 12-31-2024 Sodium [Moles/Vol] 140 mmol/L 133-145 [facility] Absolute lymphocyte countOrd ered By: Sharif Ramos on 12-03-2024 Lymphocytes Auto (Unsp spec) [#/Vol] 1.35 10*3/uL 0.83-4.[address] [facility] Absolute neutrophil countOrd ered By: Sharif Ramos on 12-03-2024 Neutrophils (Bld) [#/Vol] 3.5 10*3/uL 2.0-7.[address] [facility] Anion gap in Serum or Plasma Ordered By: Sharif Ramos on 12-03-2024 Anion gap [Moles/Vol] 11 mmol/L 5-15 [facility] Automated lymphocyte count a s percentage of total leukocytesOrdered By: Sharif Ramos on 12-03-2024 Lymphocytes/100 WBC Auto (Unsp spec) 23.2 % 19-[address] [facility] BUN/creatinine ratioOrdered By: Sharif Ramos on 12-03-2024 Urea nitrogen/Creatinine [Mass ratio] 29.1 mg/mg High 10-[address] [facility] Basophil percentageOrdered B y: Sharif Ramos on 12-03-2024 Basophils/100 WBC (Bld) 0.3 % 0-1 [facility] Carbon dioxide, total [Moles /volume] in Central venous bloodOrdered By: Sharif Ramos on 12-03-2024 CO2 [Moles/Vol] 24.7 mmol/L 21.0-32.[address] [facility] Chloride assayOrdered By: Cristina Ramos on 12-03-2024 Chloride [Moles/Vol] 105 mmol/L 98-108 [facility] Eosinophil percentageOrdered By: Sharif Ramos on 12-03-2024 Eosinophils/100 WBC (Bld) 7.0 % High 0-[address] [facility] Erythrocyte distribution wid th ratioOrdered By: Sharif Ramos on 12-03-2024 Erythrocyte distribution width (RBC) [Ratio] 13.1 % 11.6-14.[address] [facility] Erythrocyte distribution wid th standard deviationOrdered By: richie Ramos on 12-03-2024 Erythrocyte distribution width (RBC) [Ratio] 46.8 fl High 35.1-43.[address] [facility] Glomerular filtration rate ( GFR) estimation/1.73 sq m using serum, plasma, or whole bOrdered By: Sharif Ramos on 12-03-2024 GFR/1.73 sq M.predicted among non-blacks MDRD (S/P/Bld) [Vol rate/Area] 47 mL/min/{1.73_m2} Low >[address] [facility] Comment on above: mL/min/1.73m2 CKD-EP I Creatinine Equation (2020) Hematocrit Auto (Bld) [Volum e fraction]Ordered By: Sharif Ramos on 12-03-2024 Hematocrit (Bld) [Volume fraction] 40.2 % 37-[address] [facility] Hemoglobin measurementOrdere d By: Sharif Ramos on 12-03-2024 Hemoglobin (Bld) [Mass/Vol] 13.1 g/dL 12.0-15.[address] [facility] Immature granulocytes/100 WB C Auto (Bld)Ordered By: Sharif Ramos on 12-03-2024 Immature granulocytes/100 WBC (Bld) 0.300 % 0.0-0.[address] [facility] Comment on above: IG% - Immature Granu locytes (promyelocytes, myelocytes and metamyelocytes) > 1% indicates that a LEFT SHIFT is Present. MCV (mean corpuscular volume ) determinationOrdered By: Sharif Ramos on 12-03-2024 MCV (RBC) [Entitic vol] 96.9 fL 81-99 [facility] Mean corpuscular hemoglobin (MCH) determinationOrdered By: Sharif Ramos on 12-03-2024 MCH (RBC) [Entitic mass] 31.6 pg 27.0-32.[address] [facility] Mean corpuscular hemoglobin concentration (MCHC) determinationOrdered By: Sharif Ramos on 12-03-2024 MCHC (RBC) [Mass/Vol] 32.6 g/dL 32-36 [facility] Mean platelet volume determi nationOrdered By: Sharif Ramos on 12-03-2024 Platelet mean volume (Bld) [Entitic vol] 10.4 fL 6.2-12.[address] [facility] Monocyte percentageOrdered B y: Sharif Ramos on 12-03-2024 Monocytes/100 WBC (Bld) 9.6 % 0-10 [facility] Neutrophil percentageOrdered By: Sharif Ramos on 12-03-2024 Neutrophils/100 WBC (Bld) 59.6 % 47-[address] [facility] Nucleated red blood cell per centageOrdered By: Sharif Ramos on 12-03-2024 Nucleated RBC/100 WBC (Bld) [Ratio] 0 % 0-[address] [facility] Platelet countOrdered By: Cristina Ramos on 12-03-2024 Platelets (Bld) [#/Vol] 317 10*3/uL 150-[address] [facility] Potassium measurement (mass/ volume)Ordered By: Sharif Ramos on 12-03-2024 Potassium (Unsp spec) [Mass/Vol] 4.0 mmol/L 3.3-5.[address] [facility] RBC Auto (Bld) [#/Vol]Ordere d By: Sharif Ramos on 12-03-2024 RBC (Bld) [#/Vol] 4.15 10*6/uL Low 4.2-5.4 [facility] Serum creatinine measurement (mass/volume)Ordered By: Sharif Ramos on 12-03-2024 Creatinine [Mass/Vol] 1.13 mg/dL 0.70-1.20 [facility] Serum glucose measurement (m ass/volume)Ordered By: Sharif Ramos on 12-03-2024 Glucose [Mass/Vol] 102 mg/dL High 70-99 [facility] Serum or plasma calcium clarke urement (mass/volume)Ordered By: Sharif Ramos on 12-03-2024 Calcium [Mass/Vol] 9.1 mg/dL 7.6-11.0 [facility] Serum or plasma urea nitroge n measurement (mass/volume)Ordered By: Sharif Ramos on 12-03-2024 Urea nitrogen [Mass/Vol] 33 mg/dL High 4-[address] [facility] Sodium levelOrdered By: Snow Ramos on 12-03-2024 Sodium [Moles/Vol] 141 mmol/L 133-145 [facility] White blood cell (WBC) count Ordered By: Sharif Ramos on 12-03-2024 WBC (Bld) [#/Vol] 5.8 10*3/uL 4.4-11.0 [facility] Sodium levelOrdered By: Snow Ramos on 11-05-2024 Sodium [Moles/Vol] 140 mmol/L 133-145 [facility] Magnesium measurement (mass/ volume)Ordered By: Sharif Ramos on 10-08-2024 Magnesium (Unsp spec) [Mass/Vol] 2.2 mg/dL 1.5-2.[address] [facility] TSH DL <= 0.005 mIU/L QnOrde red By: Sharif Ramos on 10-08-2024 TSH Qn 1.270 uIU/mL 0.300-4.[address] [facility] Absolute lymphocyte countOrd ered By: Sharif Ramos on 08-13-2024 Lymphocytes Auto (Unsp spec) [#/Vol] 1.27 10*3/uL 0.83-4.[address] [facility] Absolute neutrophil countOrd ered By: Sharif Ramos on 08-13-2024 Neutrophils (Bld) [#/Vol] 2.4 10*3/uL 2.0-7.[address] [facility] Anion gap in Serum or Plasma Ordered By: Sharif Ramos on 08-13-2024 Anion gap [Moles/Vol] 12 mmol/L 5-15 [facility] Automated lymphocyte count a s percentage of total leukocytesOrdered By: Sharif Ramos on 08-13-2024 Lymphocytes/100 WBC Auto (Unsp spec) 29.1 % 19-[address] [facility] BUN/creatinine ratioOrdered By: Sharif Ramos on 08-13-2024 Urea nitrogen/Creatinine [Mass ratio] 27.5 mg/mg High 10-[address] [facility] Basophil percentageOrdered B y: Sharif Ramos on 08-13-2024 Basophils/100 WBC (Bld) 0.5 % 0-1 [facility] Bilirubin Test strip Ql (U)O rdered By: Sharif Ramos on 08-13-2024 Bilirubin Ql (U) Negative Negative [facility] Bilirubin, totalOrdered By: Sharif Ramos on 08-13-2024 Bilirubin [Mass/Vol] 0.41 mg/dL 0.00-1.30 [facility] Carbon dioxide, total [Moles /volume] in Central venous bloodOrdered By: Sharif Ramos on 08-13-2024 CO2 [Moles/Vol] 23.4 mmol/L 21.0-32.[address] [facility] Chloride assayOrdered By: Cristina Ramos on 08-13-2024 Chloride [Moles/Vol] 117 mmol/L High 98-108 [facility] Eosinophil percentageOrdered By: Sharif Ramos on 08-13-2024 Eosinophils/100 WBC (Bld) 7.8 % High 0-[address] [facility] Erythrocyte distribution wid th (RBC) [Ratio]Ordered By: Sharif Ramos on 08-13-2024 Erythrocyte distribution width (RBC) [Entitic vol] 45.1 fL High 35.1-43.[address] [facility] Erythrocyte distribution wid th ratioOrdered By: Shraif Ramos on 08-13-2024 Erythrocyte distribution width (RBC) [Ratio] 12.8 % 11.6-14.[address] [facility] Erythrocyte distribution wid th standard deviationOrdered By: Snowthetford centermike Ramos on 08-13-2024 Erythrocyte distribution width (RBC) [Ratio] 45.1 fl High 35.1-43.[address] [facility] GFR/1.73 sq M.predicted lisbet g non-blacks MDRD (S/P/Bld) [Vol rate/Area]Ordered By: Sharif Ramos on 08-13-2024 Estimated GFR (MDRD) Non-Af Amer 52 Low >[address] [facility] Comment on above: mL/min/1.73m2 CKD-EP I Creatinine Equation (2020) Glomerular filtration rate ( GFR) estimation/1.73 sq m using serum, plasma, or whole bOrdered By: Sharif Ramos on 08-13-2024 GFR/1.73 sq M.predicted among non-blacks MDRD (S/P/Bld) [Vol rate/Area] 52 mL/min/{1.73_m2} Low >[address] [facility] Comment on above: mL/min/1.73m2 CKD-EP I Creatinine Equation (2020) Glucose Ql (U)Ordered By: Cristina Ramos on 08-13-2024 Glucose (U) [Mass/Vol] 1000 mg/dL High Normal [facility] Hematocrit Auto (Bld) [Volum e fraction]Ordered By: Sharif Ramos on 08-13-2024 Hematocrit (Bld) [Volume fraction] 35.9 % Low 37-[address] [facility] Hemoglobin measurementOrdere d By: Sharif Ramos on 08-13-2024 Hemoglobin (Bld) [Mass/Vol] 11.8 g/dL Low 12.0-15.[address] [facility] Immature granulocytes/100 WB C Auto (Bld)Ordered By: Sharif Ramos on 08-13-2024 Immature granulocytes/100 WBC (Bld) 0.200 % 0.0-0.[address] [facility] Comment on above: IG% - Immature Granu locytes (promyelocytes, myelocytes and metamyelocytes) > 1% indicates that a LEFT SHIFT is Present. Ketones Test strip Ql (U)Ord ered By: Sharif Ramos on 08-13-2024 Ketones Ql (U) Negative Negative [facility] Laboratory - Chemistry and C hemistry - challengeOrdered By: Sharif Ramos on 08-13-2024 AST [Catalytic activity/Vol] 16 U/L <[address] [facility] Lymphocytes Auto (Unsp spec) [#/Vol]Ordered By: Sharif Ramos on 08-13-2024 Lymphocytes (Bld) [#/Vol] 1.27 10*3/uL 0.83-4.[address] [facility] Lymphocytes/100 WBC Auto (Un sp spec)Ordered By: Sharif Ramos on 08-13-2024 Lymphocytes/100 WBC (Bld) 29.1 % 19-[address] [facility] MCV (mean corpuscular volume ) determinationOrdered By: Sharif Ramos on 08-13-2024 MCV (RBC) [Entitic vol] 96.2 fL 81-99 [facility] Mean corpuscular hemoglobin (MCH) determinationOrdered By: Sharif Ramos on 08-13-2024 MCH (RBC) [Entitic mass] 31.6 pg 27.0-32.[address] [facility] Mean corpuscular hemoglobin concentration (MCHC) determinationOrdered By: Sharif Ramos on 08-13-2024 MCHC (RBC) [Mass/Vol] 32.9 g/dL 32-36 [facility] Mean platelet volume determi nationOrdered By: Sharif Ramos on 08-13-2024 Platelet mean volume (Bld) [Entitic vol] 10.2 fL 6.2-12.[address] [facility] Monocyte percentageOrdered B y: Sharif Ramos on 08-13-2024 Monocytes/100 WBC (Bld) 8.5 % 0-10 [facility] Neutrophil percentageOrdered By: Sharif Ramos on 08-13-2024 Neutrophils/100 WBC (Bld) 53.9 % 47-[address] [facility] Nitrite Test strip Ql (U)Ord ered By: Sharif Ramos on 08-13-2024 Nitrite Ql (U) Negative Negative [facility] Nucleated red blood cell per centageOrdered By: Sharif Ramos on 08-13-2024 Nucleated RBC/100 WBC (Bld) [Ratio] 0 % 0-[address] [facility] Platelet countOrdered By: Cristina Ramos on 08-13-2024 Platelets (Bld) [#/Vol] 292 10*3/uL 150-[address] [facility] Potassium (Unsp spec) [Mass/ Vol]Ordered By: Sharif Ramos on 08-13-2024 Potassium [Moles/Vol] 3.8 mmol/L 3.3-5.1 [facility] Potassium measurement (mass/ volume)Ordered By: Sharif Ramos on 08-13-2024 Potassium (Unsp spec) [Mass/Vol] 3.8 mmol/L 3.3-5.[address] [facility] Protein Test strip Ql (U)Ord ered By: Sharif Ramos on 08-13-2024 Protein Ql (U) 15 mg/dl High Negative [facility] RBC Auto (Bld) [#/Vol]Ordere d By: Sharif Ramos on 08-13-2024 RBC (Bld) [#/Vol] 3.73 10*6/uL Low 4.2-5.4 [facility] Serum creatinine measurement (mass/volume)Ordered By: Sharif Ramos on 08-13-2024 Creatinine [Mass/Vol] 1.03 mg/dL 0.70-1.20 [facility] Serum globulin measurementOr dered By: Sharif Ramos on 08-13-2024 Globulin (S) [Mass/Vol] 2.3 g/dL 2.2-4.2 [facility] Serum glucose measurement (m ass/volume)Ordered By: Sharif Ramos on 08-13-2024 Glucose [Mass/Vol] 88 mg/dL 70-99 [facility] Serum or plasma alanine contreras otransferase (ALT) measurementOrdered By: Sharif Ramos on 08-13-2024 ALT [Catalytic activity/Vol] 8 U/L <[address] [facility] Serum or plasma albumin clarke urement (mass/volume)Ordered By: Sharif Ramos on 08-13-2024 Albumin [Mass/Vol] 3.3 g/dL Low 3.4-4.8 [facility] Serum or plasma albumin/glob ulin mass ratioOrdered By: Sharif Ramos on 08-13-2024 Albumin/Globulin [Mass ratio] 1.4 {ratio} 0.9-2.[address] [facility] Serum or plasma alkaline timi sphatase measurementOrdered By: Sharif Ramos on 08-13-2024 ALP [Catalytic activity/Vol] 64 U/L 35-[address] [facility] Serum or plasma calcium clarke urement (mass/volume)Ordered By: Sharif Ramos on 08-13-2024 Calcium [Mass/Vol] 8.7 mg/dL 7.6-11.0 [facility] Serum or plasma urea nitroge n measurement (mass/volume)Ordered By: Sharif Ramos on 08-13-2024 Urea nitrogen [Mass/Vol] 28 mg/dL High 4-[address] [facility] Sodium levelOrdered By: Snow Ramos on 08-13-2024 Sodium [Moles/Vol] 153 mmol/L High 133-145 [facility] Total proteinOrdered By: Milton Ramos on 08-13-2024 Protein [Mass/Vol] 5.6 g/dL Low 5.9-8.4 [facility] Urine blood detectionOrdered By: Sharif Ramos on 08-13-2024 Urine Occult Blood Negative Negative [facility] Urine clarityOrdered By: Milton Ramos on 08-13-2024 Clarity (U) Sl. Cloudy Clear [facility] Urine color determinationOrd ered By: Sharif Ramos on 08-13-2024 Color (U) Yellow Yellow [facility] Urine cultureOrdered By: Milton Ramos on 08-13-2024 Bacteria identified Cx Nom (U) Positive Abnormal [facility] Urine glucose detectionOrder ed By: Sharif Ramos on 08-13-2024 Glucose Ql (U) 1000 mg/dl High Normal [facility] Urine leukocyte esterase det ection by dipstickOrdered By: Sharif Ramos on 08-13-2024 Leukocyte esterase Test strip Ql (U) Negative Negative [facility] Urine pHOrdered By: Mary Ramos on 08-13-2024 pH (U) 6.0 [pH] 5.0 - 8.[address] [facility] Urine specific gravity measu rementOrdered By: Sharif Ramos on 08-13-2024 Specific gravity (U) [Rel density] 1.020 1.002-1.[address] [facility] Urine urobilinogen measureme ntOrdered By: Sharif Ramos on 08-13-2024 Urobilinogen Ql (U) Normal mg/dl Normal [facility] Urobilinogen Ql (U)Ordered B y: Sharif Ramos on 08-13-2024 Urine Urobilinogen Normal mg/dl Normal [facility] White blood cell (WBC) count Ordered By: Sharif Ramos on 08-13-2024 WBC (Bld) [#/Vol] 4.4 10*3/uL 4.4-11.0 [facility] Pacemaker Checkon 07-09-2024 Pacemaker [address] [facility] [address] [place] [address] Pacemaker Check Date of Service: 07/09/24 1411 MR#: [id number] Acct: [id number] Name: TAPANABNERSHERRIE Gary Rep #: [id number] : 1935 From: Abby Butts Age/Sex: 89/F Location: [facility] [place] Status: Signed Billing Codes ICD Device Billin ICD Dev Prog Eval, Multi Assessment and Plan Assessment and Plan (1) Ischemic cardiomyopathy: Status: Acute (2) ICD (implantable cardioverter-defibrill ator) in place: Status: Acute (3) CHF (congestive heart failure): Status: Acute 07/09/24 1413 Date Abby Patiño Signature: Date (if applicable) CC: Normal [facility] Direct serum free thyroxine (FT4) measurementOrdered By: Sharif Ramos on 06-26-2024 Free T4 [Mass/Vol] 1.34 ng/dL 0.76-1.46 [facility] TSH QnOrdered By: Sharif Ramos on 06-26-2024 Thyroid Stimulating Hormone (TSH) 2.090 uIU/mL 0.358-3.[address] [facility] 12 Lead EKG performed by [facility] [place] on 06-18-2024 12 Lead EKG performed by [address] [id number] 12 Lead EKG performed by [facility] [place] 06/18/24 1250 MR#: [id number] Acct: [id number] Name: SHERRIE LOZANO Rep #: [id number] : 1935 89 From: Andrea Hawthorne MD Attending Dr: Dr. Andrea Hawthorne MD Status: DEP Michael STOCK Ordering Dr: Andrea Hawthorne MD Date: 06/18/24 Location: [facility] [place] Sex: F C Admitted: [facility] [place]/12 Lead EKG performed by [facility] [place] ECG Report Interpretation ----Electronic ventricular pacemaker Pacemaker ECG, No further analysis Electronically signed on 06/23/2024 at 08:30 by Andrea Hawthorne MyMosa Version [id number] 06/23/24 0833 Date Andrea Hawthorne MD CC: Sharif Ramos MD Date Dictated: 06/18/24 1250 Date Transcribed: 06/18/241249 Evp: CO Signed Normal [facility] Cardiology Visit Reporton Cardiology Visit Report [facility] [address] [place] [address] OFFICE VISIT Date of Service: 06/18/24 MR#: [id number] Acct: [id number] Name: SHERRIE LOZANO Rep #: [id number] : 1935 Provider: Dr. Andrea Hawthorne MD Age/Sex: 89/F Location: [facility] [place] Status: Signed HPI HPI History of Present Illness Details: Pleasant 89-year-old lady who has recently relocated from [facility] here. She has a history of hypertension, [...] Method room air Intake Visit Reasons: ESTABLISH ([facility]) [employer] Required: No Accompanied by: Nephew Is patient in pain?: No Allergies Mjhbsmp-ELY-QeT Reductase Inhibitor Adverse Reaction (Mild, Verified 06/18/24 [...] mg 10 mg PO QAM #60 tabs 01/15/25 01/15/25 Rx tablet (Farxiga) levothyroxine 25 mcg tablet mcg PO 06/18/24 06/18/24 History metoprolol succinate 25 mg 25 mg PO QDAY #60 tabs 06/18/24 06/18/24 Rx tablet,extended release 24 hr (Toprol XL) Have you fallen in the past year?: Yes (Hip Fx) [facility] Medical History Secondary hyperaldosteronism Hyperlipidemia Essential (primary) [...] with act (more content not included)... Normal [facility] Absolute neutrophil countOrd ered By: Sharif Ramos on 06-06-2024 Neutrophils (Bld) [#/Vol] 3.6 10*3/uL 2.0-7.[address] [facility] Basophil percentageOrdered B y: Sharif Ramos on 06-06-2024 Basophils/100 WBC (Bld) 0.5 % 0-1 [facility] Blood urea nitrogen (BUN)/cr eatinine ratioOrdered By: Sharif Ramos on 06-06-2024 Urea nitrogen/Creatinine [Mass ratio] 26.6 mg/mg High 10-[address] [facility] Carbon dioxide measurementOr dered By: Sharif Ramos on 06-06-2024 CO2 [Moles/Vol] 25.0 mmol/L 21.0-32.[address] [facility] Chloride measurementOrdered By: Sharif Ramos on 06-06-2024 Chloride [Moles/Vol] 110 mmol/L High 98-107 [facility] Eosinophil percentageOrdered By: Sharif Ramos on 06-06-2024 Eosinophils/100 WBC (Bld) 6.2 % High 0-[address] [facility] Erythrocyte distribution wid th (RBC) [Ratio]Ordered By: Sharif Ramos on 06-06-2024 Erythrocyte distribution width (RBC) [Entitic vol] 48.0 fL High 35.1-43.[address] [facility] Erythrocyte distribution wid th ratioOrdered By: Sharif Ramos on 06-06-2024 Erythrocyte distribution width (RBC) [Ratio] 13.2 % 11.6-14.[address] [facility] Estimated glomerular filtrat ion rate (GFR) AmericanOrdered By: Sharif Ramos on 06-06-2024 Estimated GFR (MDRD) Amer 61 mL/min >[address] [facility] Comment on above: GFR Calc Glomerular filtration rate ( GFR) estimationOrdered By: Sharif Ramos on 06-06-2024 Estimated GFR (MDRD) Non-Af Amer 50 mL/min Low >[address] [facility] Comment on above: Non- GFR Calc Glucose measurementOrdered B y: Sharif Ramos on 06-06-2024 Glucose [Mass/Vol] 98 mg/dL 74-106 [facility] Hematocrit Auto (Bld) [Volum e fraction]Ordered By: Sharif Ramos on 06-06-2024 Hematocrit (Bld) [Volume fraction] 39.7 % 37-[address] [facility] Hemoglobin measurementOrdere d By: Sharif Ramos on 06-06-2024 Hemoglobin (Bld) [Mass/Vol] 12.9 g/dL 12.0-15.[address] [facility] Immature granulocytes/100 WB C Auto (Bld)Ordered By: Sharif Ramos on 06-06-2024 Immature granulocytes/100 WBC (Bld) 0.300 % 0.0-0.[address] [facility] Comment on above: IG% - Immature Granu locytes (promyelocytes, myelocytes and metamyelocytes) > 1% indicates that a LEFT SHIFT is Present. Lymphocytes Auto (Unsp spec) [#/Vol]Ordered By: Sharif Ramos on 06-06-2024 Lymphocytes (Bld) [#/Vol] 1.31 10*3/uL 0.83-4.[address] [facility] Lymphocytes/100 WBC Auto (Un sp spec)Ordered By: Sharif Ramos on 06-06-2024 Lymphocytes/100 WBC (Bld) 22.4 % 19-[address] [facility] MCV (mean corpuscular volume ) determinationOrdered By: Sharif Ramos on 06-06-2024 MCV (RBC) [Entitic vol] 99.0 fL 81-99 [facility] Mean corpuscular hemoglobin (MCH) determinationOrdered By: richie Ramos on 06-06-2024 MCH (RBC) [Entitic mass] 32.2 pg High 27.0-32.[address] [facility] Mean corpuscular hemoglobin concentration (MCHC) determinationOrdered By: Sharif Ramos on 06-06-2024 MCHC (RBC) [Mass/Vol] 32.5 g/dL 32-36 [facility] Mean platelet volume determi nationOrdered By: Sharif Ramos on 06-06-2024 Platelet mean volume (Bld) [Entitic vol] 10.4 fL 6.2-12.[address] [facility] Monocyte percentageOrdered B y: Sharif Ramos on 06-06-2024 Monocytes/100 WBC (Bld) 9.2 % 0-10 [facility] Neutrophil percentageOrdered By: richie Ramos on 06-06-2024 Neutrophils/100 WBC (Bld) 61.4 % 47-[address] [facility] Nucleated red blood cell per centageOrdered By: Sharif Ramos on 06-06-2024 Nucleated RBC/100 WBC (Bld) [Ratio] 0 % 0-[address] [facility] Platelet countOrdered By: Cristina Ramos on 06-06-2024 Platelets (Bld) [#/Vol] 328 10*3/uL 150-[address] [facility] Potassium measurementOrdered By: Sharif Ramos on 06-06-2024 Potassium [Moles/Vol] 4.1 mmol/L 3.5-5.1 [facility] RBC Auto (Bld) [#/Vol]Ordere d By: Sharif Ramos on 06-06-2024 RBC (Bld) [#/Vol] 4.01 10*6/uL Low 4.2-5.4 [facility] Serum anion gap measurementO rdered By: Sharif Ramos on 06-06-2024 Anion gap [Moles/Vol] 7 mmol/L 5-15 [facility] Serum or plasma calcium clarke urement (mass/volume)Ordered By: Sharif Ramos on 06-06-2024 Calcium [Mass/Vol] 9.2 mg/dL 8.5-10.1 [facility] Serum or plasma creatinine m easurement (mass/volume)Ordered By: Sharif Ramos on 06-06-2024 Creatinine [Mass/Vol] 1.09 mg/dL High 0.55-1.02 [facility] Comment on above: The validity of the calculated GFR & GFRAA in patients over 70 years has not been determined. Clinical correlation is essential. Serum or plasma urea nitroge n measurement (mass/volume)Ordered By: Sharif Ramos on 06-06-2024 Urea nitrogen [Mass/Vol] 29 mg/dL High 7-[address] [facility] Sodium levelOrdered By: Snow Ramos on 06-06-2024 Sodium [Moles/Vol] 142 mmol/L 136-145 [facility] White blood cell (WBC) count Ordered By: Sharif Ramos on 06-06-2024 WBC (Bld) [#/Vol] 5.8 10*3/uL 4.4-11.0 [facility] Direct serum free thyroxine (FT4) measurementOrdered By: Sharif Ramos on 05-15-2024 Free T4 [Mass/Vol] 1.35 ng/dL 0.76-1.46 [facility] TSH QnOrdered By: Sharif Ramos on 05-15-2024 Thyroid Stimulating Hormone (TSH) 2.920 uIU/mL 0.358-3.[address] [facility] Absolute neutrophil countOrd ered By: Sharif Ramos on 05-07-2024 Neutrophils (Bld) [#/Vol] 3.2 10*3/uL 2.0-7.[address] [facility] Basophil percentageOrdered B y: Sharif Ramos on 05-07-2024 Basophils/100 WBC (Bld) 0.4 % 0-1 [facility] Blood urea nitrogen (BUN)/cr eatinine ratioOrdered By: Sharif Ramos on 05-07-2024 Urea nitrogen/Creatinine [Mass ratio] 30.2 mg/mg High 10-[address] [facility] Carbon dioxide measurementOr dered By: Sharif Ramos on 05-07-2024 CO2 [Moles/Vol] 26.0 mmol/L 21.0-32.[address] [facility] Chloride measurementOrdered By: Sharif Ramos on 05-07-2024 Chloride [Moles/Vol] 113 mmol/L High 98-107 [facility] Eosinophil percentageOrdered By: Sharif Ramos on 05-07-2024 Eosinophils/100 WBC (Bld) 6.8 % High 0-[address] [facility] Erythrocyte distribution wid th (RBC) [Ratio]Ordered By: Sharif Ramos on 05-07-2024 Erythrocyte distribution width (RBC) [Entitic vol] 49.6 fL High 35.1-43.[address] [facility] Erythrocyte distribution wid th ratioOrdered By: Sharif Ramos on 05-07-2024 Erythrocyte distribution width (RBC) [Ratio] 13.6 % 11.6-14.[address] [facility] Estimated glomerular filtrat ion rate (GFR) AmericanOrdered By: Sharif Ramos on 05-07-2024 Estimated GFR (MDRD) Amer 57 mL/min Low >[address] [facility] Comment on above: GFR Calc Glomerular filtration rate ( GFR) estimationOrdered By: Sharif Ramos on 05-07-2024 Estimated GFR (MDRD) Non-Af Amer 47 mL/min Low >[address] [facility] Comment on above: Non- GFR Calc Glucose measurementOrdered B y: Sharif Ramos on 05-07-2024 Glucose [Mass/Vol] 110 mg/dL High 74-106 [facility] Comment on above: Fasting Glucose resu lt from 100 to 125 mg/dL suggests IMPAIRED HOMEOSTASIS per A.D.A. criteria. Hematocrit Auto (Bld) [Volum e fraction]Ordered By: Sharif Ramos on 05-07-2024 Hematocrit (Bld) [Volume fraction] 34.6 % Low 37-[address] [facility] Hemoglobin measurementOrdere d By: Sharif Ramos on 05-07-2024 Hemoglobin (Bld) [Mass/Vol] 11.5 g/dL Low 12.0-15.[address] [facility] Immature granulocytes/100 WB C Auto (Bld)Ordered By: Sharif Ramos on 05-07-2024 Immature granulocytes/100 WBC (Bld) 0.400 % 0.0-0.[address] [facility] Comment on above: IG% - Immature Granu locytes (promyelocytes, myelocytes and metamyelocytes) > 1% indicates that a LEFT SHIFT is Present. Lymphocytes Auto (Unsp spec) [#/Vol]Ordered By: Sharif Ramos on 05-07-2024 Lymphocytes (Bld) [#/Vol] 1.10 10*3/uL 0.83-4.[address] [facility] Lymphocytes/100 WBC Auto (Un sp spec)Ordered By: Sharif Ramos on 05-07-2024 Lymphocytes/100 WBC (Bld) 21.5 % 19-[address] [facility] MCV (mean corpuscular volume ) determinationOrdered By: Sharif Ramos on 05-07-2024 MCV (RBC) [Entitic vol] 98.6 fL 81-99 [facility] Mean corpuscular hemoglobin (MCH) determinationOrdered By: Sharif Ramos on 05-07-2024 MCH (RBC) [Entitic mass] 32.8 pg High 27.0-32.[address] [facility] Mean corpuscular hemoglobin concentration (MCHC) determinationOrdered By: Sharif Raoms on 05-07-2024 MCHC (RBC) [Mass/Vol] 33.2 g/dL 32-36 [facility] Mean platelet volume determi nationOrdered By: Sharif Ramos on 05-07-2024 Platelet mean volume (Bld) [Entitic vol] 10.6 fL 6.2-12.[address] [facility] Monocyte percentageOrdered B y: Sharif Ramos on 05-07-2024 Monocytes/100 WBC (Bld) 9.2 % 0-10 [facility] Neutrophil percentageOrdered By: Sharif Ramos on 05-07-2024 Neutrophils/100 WBC (Bld) 61.7 % 47-70 [facility] Nucleated red blood cell per centageOrdered By: Sharif Ramos on 05-07-2024 Nucleated RBC/100 WBC (Bld) [Ratio] 0 % 0-[address] [facility] Platelet countOrdered By: Cristina Ramos on 05-07-2024 Platelets (Bld) [#/Vol] 303 10*3/uL 150-[address] [facility] Potassium measurementOrdered By: Sharif Ramos on 05-07-2024 Potassium [Moles/Vol] 4.1 mmol/L 3.5-5.1 [facility] RBC Auto (Bld) [#/Vol]Ordere d By: Sharif Ramos on 05-07-2024 RBC (Bld) [#/Vol] 3.51 10*6/uL Low 4.2-5.4 [facility] Serum anion gap measurementO rdered By: Sharif Ramos on 05-07-2024 Anion gap [Moles/Vol] 4 mmol/L Low 5-15 [facility] Serum or plasma calcium clarke urement (mass/volume)Ordered By: Sharif Ramos on 05-07-2024 Calcium [Mass/Vol] 9.0 mg/dL 8.5-10.1 [facility] Serum or plasma creatinine m easurement (mass/volume)Ordered By: Sharif Ramos on 05-07-2024 Creatinine [Mass/Vol] 1.16 mg/dL High 0.55-1.02 [facility] Comment on above: The validity of the calculated GFR & GFRAA in patients over 70 years has not been determined. Clinical correlation is essential. Serum or plasma urea nitroge n measurement (mass/volume)Ordered By: Sharif Ramos on 05-07-2024 Urea nitrogen [Mass/Vol] 35 mg/dL High 7-[address] [facility] Sodium levelOrdered By: Cristinakarson shahram Randallroxannagregg on 05-07-2024 Sodium [Moles/Vol] 143 mmol/L 136-145 [facility] White blood cell (WBC) count Ordered By: Cristinashahram Ramos on 05-07-2024 WBC (Bld) [#/Vol] 5.1 10*3/uL 4.4-11.0 [facility] COVID-19 virus antigen assay Ordered By: Tammi Frost on 10-10-2023 SARS-CoV-2 (COVID-19) Ag IA.rapid Ql (Resp) [facility] Basophil percentageOrdered B y: Tammi Frost on 10-09-2023 Chloride [Moles/Vol] 109 mmol/L 98-107 [facility] Glucose [Mass/Vol] 100 mg/dL 74-106 [facility] Comment on above: Fasting Glucose resu lt from 100 to 125 mg/dL suggests IMPAIRED HOMEOSTASIS per A.D.A. criteria. Hemoglobin (Bld) [Mass/Vol] 10.7 g/dL 12.0-15.[address] [facility] Potassium [Moles/Vol] 4.4 mmol/L 3.5-5.1 [facility] Sodium [Moles/Vol] 139 mmol/L 136-145 [facility] WBC (Bld) [#/Vol] 8.3 10*3/uL 4.4-11.0 [facility] Determination of erythrocyte mean corpuscular volume (MCV)Ordered By: Tammi Frost on 10-09-2023 MCV (RBC) [Entitic vol] 95.8 fL 81-99 [facility] Erythrocyte distribution wid th ratioOrdered By: Tammi Frost on 10-09-2023 Erythrocyte distribution width (RBC) [Ratio] 16.0 % 11.6-14.[address] [facility] Erythrocyte distribution wid th standard deviationOrdered By: Tammi Frost on 10-09-2023 Erythrocyte distribution width (RBC) [Entitic vol] 57.1 fL 35.1-43.[address] [facility] Hematocrit Auto (Bld) [Volum e fraction]Ordered By: Tammi Frost on 10-09-2023 Hematocrit (Bld) [Volume fraction] 33.9 % 37-[address] [facility] Laboratory - Chemistry and C hemistry - challengeOrdered By: Tammi Frost on 10-09-2023 CO2 [Moles/Vol] 27.0 mmol/L 21.0-32.[address] [facility] Urea nitrogen/Creatinine [Mass ratio] 40.4 mg/mg 10-[address] [facility] Laboratory - Hematology and Cell countsOrdered By: Tammi Frost on 10-09-2023 MCH (RBC) [Entitic mass] 30.2 pg 27.0-32.[address] [facility] MCHC (RBC) [Mass/Vol] 31.6 g/dL 32-36 [facility] Platelet mean volume (Bld) [Entitic vol] 9.9 fL 6.2-12.[address] [facility] Platelets (Bld) [#/Vol] 450 10*3/uL 150-[address] [facility] No Panel InformationOrdered By: Tammi Frost on 10-09-2023 Estimated Creatinine Clearance Calc 26.00 ml/min [facility] Estimated GFR (MDRD) Amer 70 mL/min >[address] [facility] Comment on above: GFR Calc Estimated GFR (MDRD) Non-Af Amer 58 mL/min >[address] [facility] Comment on above: Non- GFR Calc RBC Auto (Bld) [#/Vol]Ordere d By: Tammi Frost on 10-09-2023 RBC (Bld) [#/Vol] 3.54 10*6/uL 4.2-5.4 [facility] Serum or plasma calcium clarke urement (mass/volume)Ordered By: Tammi Frost on 10-09-2023 Calcium [Mass/Vol] 8.7 mg/dL 8.5-10.1 [facility] Serum or plasma creatinine m easurement (mass/volume)Ordered By: Tammi Frost on 10-09-2023 Creatinine [Mass/Vol] 0.97 mg/dL 0.55-1.02 [facility] Comment on above: The validity of the calculated GFR & GFRAA in patients over 70 years has not been determined. Clinical correlation is essential. Serum or plasma urea nitroge n measurement (mass/volume)Ordered By: Tammi Frost on 10-09-2023 Urea nitrogen [Mass/Vol] 39 mg/dL 7-[address] [facility] Thin prep Papanicolaou smear with manual screeningOrdered By: Tammi Frost on 10-09-2023 Thin prep Papanicolaou smear with manual screening 3 5-[address] [facility] Absolute lymphocyte countOrd ered By: Anson Waite on 10-02-2023 Lymphocytes Auto (Unsp spec) [#/Vol] 0.69 10*3/uL 0.83-4.[address] [facility] Automated lymphocyte count a s percentage of total leukocytesOrdered By: Anson Waite on 10-02-2023 Lymphocytes/100 WBC Auto (Unsp spec) 7.3 % 19-[address] [facility] Basophil percentageOrdered B y: Anson Waite on 10-02-2023 Basophils/100 WBC (Bld) 0.2 % 0-1 [facility] Eosinophils/100 WBC (Bld) 0.6 % 0-[address] [facility] Monocytes/100 WBC (Bld) 7.4 % 0-10 [facility] Neutrophils (Bld) [#/Vol] 8.0 10*3/uL 2.0-7.[address] [facility] Neutrophils/100 WBC (Bld) 84.0 % 47-[address] [facility] Immature granulocytes/100 WB C Auto (Bld)Ordered By: Anson Waite on 10-02-2023 Immature granulocytes/100 WBC (Bld) 0.500 % 0.0-0.[address] [facility] Comment on above: IG% - Immature Granu locytes (promyelocytes, myelocytes and metamyelocytes) > 1% indicates that a LEFT SHIFT is Present. Laboratory - Hematology and Cell countsOrdered By: Anson Waite on 10-02-2023 Nucleated RBC/100 WBC (Bld) [Ratio] 0 % 0-[address] [facility] Whole blood hemoglobin A1c/t otal hemoglobin ratio (mass fraction)Ordered By: Anson Waite on 10-02-2023 HbA1c (Bld) [Mass fraction] 5.4 % 3.8-5.[address] [facility] Comment on above: Normal < 5.7 % Predi abetic 5.7 - 6.4 % Diabetic >or= 6.5 % Please note range changes. Basophil percentageOrdered B y: Mehdi Cabrera on 09-30-2023 Basophil percentage 3.8 mg/dL 2.5-4.9 [facility] Bilirubin [Mass/Vol] 0.60 mg/dL 0.20-1.00 [facility] Comment on above: For patients on eltr ombopag therapy, use of Dimension [place] TBIL is not recommended. Protein [Mass/Vol] 6.1 g/dL 6.4-8.2 [facility] Laboratory - Chemistry and C hemistry - challengeOrdered By: Mehdi Cabrera on 09-30-2023 Albumin/Globulin [Mass ratio] 0.9 {ratio} 0.9-2.[address] [facility] ALP [Catalytic activity/Vol] 68 U/L 45-[address] [facility] ALT [Catalytic activity/Vol] 23 U/L 13-[address] [facility] Globulin (S) [Mass/Vol] 3.2 g/dL 2.2-4.2 [facility] Magnesium [Mass/Vol] 2.9 mg/dL 1.6-2.6 [facility] Thin prep Papanicolaou smear with manual screeningOrdered By: Anson Waite on 09-30-2023 Thin prep Papanicolaou smear with manual screening 92 mg/dL 74-[address] [facility] Comment on above: MANAGEMENT OF PATIEN T CARE PER NURSING PROTOCOL Thin prep Papanicolaou smear with manual screeningOrdered By: Mehdi Cabrera on 09-30-2023 Thin prep Papanicolaou smear with manual screening 2.9 g/dL 3.2-5.[address] [facility] Thin prep Papanicolaou smear with manual screening 20 U/L 15-[address] [facility] Absolute lymphocyte countOrd ered By: Grant Whitley on 09-29-2023 Lymphocytes Auto (Unsp spec) [#/Vol] 1.31 10*3/uL 0.83-4.[address] [facility] Automated lymphocyte count a s percentage of total leukocytesOrdered By: Grant Whitley on 09-29-2023 Lymphocytes/100 WBC Auto (Unsp spec) 19.6 % 19-[address] [facility] Basophil percentageOrdered B y: Mehdi Fagano on 09-29-2023 Cholesterol [Mass/Vol] 195 mg/dL <200 [facility] Comment on above: <200 mg/dL Desirable 200-240 mg/dL Borderline >240 mg/dL High Risk Triglyceride [Mass/Vol] 87 mg/dL <199 [facility] Comment on above: The drugs N-Acetylcy steine and Metamizole may falsely depress this assay.Serum Triglycerides Reference Interval Normal <150 mg/dL Borderline high 150 - 199 mg/dL High 200 - 499 mg/dL Very High > or = 500 mg/dL Basophil percentageOrdered B y: Grant Whitley on 09-29-2023 Basophils/100 WBC (Bld) 0.3 % 0-1 [facility] Chloride [Moles/Vol] 106 mmol/L 98-107 [facility] Eosinophils/100 WBC (Bld) 1.6 % 0-[address] [facility] Glucose [Mass/Vol] 93 mg/dL 74-106 [facility] Hemoglobin (Bld) [Mass/Vol] 14.8 g/dL 12.0-15.[address] [facility] Monocytes/100 WBC (Bld) 5.8 % 0-10 [facility] Neutrophils (Bld) [#/Vol] 4.8 10*3/uL 2.0-7.[address] [facility] Neutrophils/100 WBC (Bld) 71.8 % 47-[address] [facility] Potassium [Moles/Vol] 4.9 mmol/L 3.5-5.1 [facility] Comment on above: Moderate Hemolysis, Result may be falsely increased. Sodium [Moles/Vol] 140 mmol/L 136-145 [facility] WBC (Bld) [#/Vol] 6.7 10*3/uL 4.4-11.0 [facility] Determination of erythrocyte mean corpuscular volume (MCV)Ordered By: Grant Whitley on 09-29-2023 MCV (RBC) [Entitic vol] 94.4 fL 81-99 [facility] Erythrocyte distribution wid th ratioOrdered By: Grant Whitley on 09-29-2023 Erythrocyte distribution width (RBC) [Ratio] 15.9 % 11.6-14.[address] [facility] Erythrocyte distribution wid th standard deviationOrdered By: Grantcarlene Whitley on 09-29-2023 Erythrocyte distribution width (RBC) [Entitic vol] 55.5 fL 35.1-43.[address] [facility] Hematocrit Auto (Bld) [Volum e fraction]Ordered By: Grantcarlene Whitley on 09-29-2023 Hematocrit (Bld) [Volume fraction] 45.6 % 37-[address] [facility] Immature granulocytes/100 WB C Auto (Bld)Ordered By: Grantcarlene Whitley on 09-29-2023 Immature granulocytes/100 WBC (Bld) 0.900 % 0.0-0.[address] [facility] Comment on above: IG% - Immature Granu locytes (promyelocytes, myelocytes and metamyelocytes) > 1% indicates that a LEFT SHIFT is Present. Laboratory - Chemistry and C hemistry - challengeOrdered By: Mehdi Cabrera on 09-29-2023 Cholesterol in HDL [Mass/Vol] 54 mg/dL >[address] [facility] Comment on above: The drugs N-Acetylcy steine and Metamizole may falsely depress this assay. Reference Range HDL <40 mg/dL Low HDL Cholesterol HDL >or= 60 mg/dL High HDL Cholesterol Cholesterol in LDL [Mass/Vol] 124 mg/dL 0-[address] [facility] Laboratory - Chemistry and C hemistry - challengeOrdered By: Grantcarlene Whitley on 09-29-2023 CO2 [Moles/Vol] 31.0 mmol/L 21.0-32.[address] [facility] Urea nitrogen/Creatinine [Mass ratio] 36.0 mg/mg 10-[address] [facility] Laboratory - Hematology and Cell countsOrdered By: Grantcarlene Whitley on 09-29-2023 MCH (RBC) [Entitic mass] 30.6 pg 27.0-32.[address] [facility] MCHC (RBC) [Mass/Vol] 32.5 g/dL 32-36 [facility] Nucleated RBC/100 WBC (Bld) [Ratio] 0 % 0-[address] [facility] Platelet mean volume (Bld) [Entitic vol] 9.9 fL 6.2-12.[address] [facility] Platelets (Bld) [#/Vol] 314 10*3/uL 150-[address] [facility] No Panel InformationOrdered By: Mehdi Cabrera on 09-29-2023 VLDL Cholesterol 17 mg/dL 5-[address] [facility] No Panel InformationOrdered By: Grant Whitley on 09-29-2023 Estimated Creatinine Clearance Calc 25.84 ml/min [facility] Estimated GFR (MDRD) Amer 67 mL/min >[address] [facility] Comment on above: GFR Calc Estimated GFR (MDRD) Non-Af Amer 56 mL/min >[address] [facility] Comment on above: Non- GFR Calc RBC Auto (Bld) [#/Vol]Ordere d By: Grant Whitley on 09-29-2023 RBC (Bld) [#/Vol] 4.83 10*6/uL 4.2-5.4 [facility] Serum or plasma calcium clarke urement (mass/volume)Ordered By: Grant Whitley on 09-29-2023 Calcium [Mass/Vol] 9.6 mg/dL 8.5-10.1 [facility] Serum or plasma creatinine m easurement (mass/volume)Ordered By: Grant Whitley on 09-29-2023 Creatinine [Mass/Vol] 1.00 mg/dL 0.55-1.02 [facility] Comment on above: The validity of the calculated GFR & GFRAA in patients over 70 years has not been determined. Clinical correlation is essential. Serum or plasma urea nitroge n measurement (mass/volume)Ordered By: Grant Whitley on 09-29-2023 Urea nitrogen [Mass/Vol] 36 mg/dL 7-[address] [facility] Thin prep Papanicolaou smear with manual screeningOrdered By: Grant Whitley on 09-29-2023 Thin prep Papanicolaou smear with manual screening 3 5-[address] [facility] Vital Signs Date Time Vital Sign Value Performing Clinician Khadijah reyez 12-17-2024 10:53-0400 Body height 160.[address] Sharif Ramos MD Work Phone: [facility] 06-18-2024 09:53-0500 Body mass index (BMI) [Ratio] 22.6 kg/m2 Dr. Viet Lovett MD Work Phone: [facility] 06-18-2024 09:53-0500 Body weight 58.[address] Viet Lovett MD Work Phone: [facility] 06-18-2024 09:53-0500 Diastolic blood pressure 58 mm[Hg] Dr. Viet Lovett MD Work Phone: [facility] 06-18-2024 09:53-0500 Heart rate 69 /min Dr. Viet Lovett MD Work Phone: [facility] 06-18-2024 09:53-0500 Respiratory rate 16 /min Dr. Viet Lovett MD Work Phone: [facility] 06-18-2024 09:53-0500 SaO2% (BldA) [Mass fraction] 95 % Dr. Viet Lovett MD Work Phone: [facility] 06-18-2024 09:53-0500 Systolic blood pressure 104 mm[Hg] Dr. Viet Lovett MD Work Phone: [facility] 10-10-2023 09:37-0400 Body temperature 97.7 [degF] Dr. Grant Whitley Work Phone: [facility] 10-10-2023 09:37-0400 Diastolic blood pressure 55 mm[Hg] Dr. Grant Whitley Work Phone: [facility] 10-10-2023 09:37-0400 Heart rate 70 /min Dr. Grant Whitley Work Phone: [facility] 10-10-2023 09:37-0400 Respiratory rate 16 /min Dr. Grant Whitley Work Phone: [facility] 10-10-2023 09:37-0400 SaO2% (BldA) [Mass fraction] 97 % Dr. Grant Whitley Work Phone: [facility] 10-10-2023 09:37-0400 Systolic blood pressure 132 mm[Hg] Dr. Grant Whitley Work Phone: [facility] 10-08-2023 15:05-0400 Body height 160.[address] Grant Whitley Work Phone: [facility] 10-08-2023 15:05-0400 Body weight 40.[address] Grant Whitley Work Phone: [facility] 10-07-2023 04:22-0400 Body mass index (BMI) [Ratio] 15.7 kg/m2 Dr. Grant Whitley Work Phone: [facility] 10-01-2023 01:28-0400 Inhaled oxygen flow rate 2 L/min Dr. Grant Whitley Work Phone: [facility] 09-29-2023 14:46-0400 Body temperature 98.1 [degF] [facility] 09-29-2023 14:46-0400 Diastolic blood pressure 70 mm[Hg] [facility] 09-29-2023 14:46-0400 Heart rate 70 /min [facility] 09-29-2023 14:46-0400 Respiratory rate 14 /min [facility] 09-29-2023 14:46-0400 SaO2% (BldA) [Mass fraction] 99 % [facility] 09-29-2023 14:46-0400 Systolic blood pressure 163 mm[Hg] [facility] 09-29-2023 12:46-0400 Body height 160.02 cm [facility] 09-29-2023 12:46-0400 Body mass index (BMI) [Ratio] 16.1 kg/m2 [facility] 09-29-2023 12:46-0400 Body weight 41.3 kg [facility] Encounters Encounter Date Encounter Type Care Provider Facility Start: 02-18-2025 ambulatory Eflambe Latashae Facili ty:[facility] Start: 02-10-2025 End: 02-10-2025 ambulatory Efewongbe Oleroxannae Facility:[facility] Start: 01-21-2025 ambulatory Sharif Ramos Facili ty:[facility] Start: 01-21-2025 Registered Referred Sharif Ramos MD [facility] Start: 01-15-2025 End: 01-15-[address] Sharif Ramos MD Work Phone: [facility] Start: 01-15-2025 End: 01-15-[address] Andrea Hawthorne MD -[facility] Work Phone: Start: 01-07-2025 End: 01-07-2025 Patient encounter procedure Lashae NAM -[facility] Work Phone: Start: 01-07-2025 End: 01-07-[address] Sharif Ramos MD Work Phone: [facility] Start: 01-07-2025 [facility] Start: 12-31-2024 ambulatory Sharif CARRENO Fa cility:[facility] Start: 12-31-2024 Registered Referred Sharif Ramos MD [facility] Start: 12-16-2024 End: 12-16-[address] Sharif Ramos MD Work Phone: [facility] Start: 12-16-2024 End: 12-16-[address] Sharif Ramos MD -[facility] Work Phone: Start: 12-03-2024 ambulatory Sharif Ramos OLS Fa cility:[facility] Start: 12-03-2024 [facility] Start: 11-20-2024 End: 11-20-[address] Sharif Ramos MD Work Phone: [facility] Start: 11-20-2024 End: 11-20-2024 Patient encounter procedure Jamar DE LA PAZ -[facility] Work Phone: Start: 11-05-2024 ambulatory Sharif Edmondson cility:[facility] Start: 11-05-2024 Registered Referred Sharif Ramos MD -[facility] Start: 10-16-2024 End: 10-16-[address] Sharif Ramos MD Work Phone: [facility] Work Phone: Start: 10-16-2024 End: 10-16-[address] Andrea Hawthorne MD -[facility] Work Phone: Start: 10-15-2024 End: 10-15-[address] Sharif Ramos MD Work Phone: [facility] Start: 10-15-2024 End: 10-15-2024 Patient encounter procedure Lashae Garner [facility] Work Phone: Start: 10-08-2024 End: 10-08-2024 ambulatory Sharif Ramos MD [facility] Work Phone: Start: 10-08-2024 End: 10-08-2024 Departed Referred Sharif Ramos MD [facility] Start: 10-07-2024 End: 10-08-[address] Sharif Ramos MD Work Phone: [facility] Start: 10-07-2024 End: 10-07-[address] Sharif Ramos MD -[facility] Work Phone: Start: 09-02-2024 End: 09-02-2024 ambulatory Sharif Ramos Facility:[facility] Start: 09-02-2024 End: 09-02-2024 Patient encounter procedure Lashae Garner [facility] Work Phone: Start: 08-17-2024 End: 08-17-2024 ambulatory Andrea Hawthorne Facility:[facility] Start: 08-17-2024 End: 08-17-[address] Andrea Hawthorne MD -[facility] Work Phone: Start: 08-13-2024 [facility] Start: 08-13-2024 End: 08-13-[address] Viet Lovett MD Work Phone: [facility] Work Phone: Start: 08-13-2024 End: 08-13-2024 [facility] Start: 08-12-2024 End: 08-13-2024 ambulatory Sharif CARRENO Facility:[facility] Start: 08-12-2024 End: 08-12-[address] Sharif Ramos MD -[facility] Work Phone: Start: 07-31-2024 End: 07-31-2024 ambulatory Jamar DE LA PAZ Facility:[facility] Start: 07-31-2024 End: 07-31-2024 Patient encounter procedure Jamar DE LA PAZ -[facility] Work Phone: Start: 07-09-2024 End: 07-09-2024 ambulatory Andrea Hawthorne Facility:[facility] Start: 07-09-2024 End: 07-09-[address] Andrea Hawthorne MD -[facility] Work Phone: Start: 06-26-2024 ambulatory Sharif CARRENO Fa cility:[facility] Start: 06-26-2024 [facility] Start: 06-24-2024 End: 06-24-2024 ambulatory Lashae Garner NP Facility:[facility] Start: 06-24-2024 End: 06-24-2024 Patient encounter procedure Lashae Garner [employer]- -[facility] Work Phone: Start: 06-18-2024 End: 06-18-[address] Andrea Hawthorne MD -[facility] Work Phone: Start: 06-18-2024 End: 06-18-2024 ambulatory Eflambe Latashae OLS Facility:[facility] Start: 06-17-2024 End: 06-17-2024 ambulatory Efewongbe Oleghe Facility:[facility] Start: 06-17-2024 End: 06-17-[address] Sharif aRmos MD -[facility] Work Phone: Start: 06-06-2024 ambulatory Eflambe Latashae OLS Fa cility:[facility] Start: 06-06-2024 [facility] Start: 05-15-2024 End: 05-15-2024 [facility] Start: 05-15-2024 End: 05-15-2024 ambulatory Eflambe Latashae EV Facility:[facility] Start: 05-07-2024 End: 05-07-2024 Departed Referred Sharif Ramos MD [facility] Start: 05-06-2024 End: 05-07-2024 ambulatory Efkarsonongbe Latashae OLS Facility:[facility] Start: 04-24-2024 End: 04-24-2024 ambulatory Efkarsonongbe Latashae OLS Facility:[facility] Start: 04-09-2024 End: 04-09-2024 ambulatory Efkarsonongbe Latashae OLS Facility:[facility] Start: 04-03-2024 End: 04-03-2024 ambulatory Viet [place] Facility:[facility] Start: 10-09-2023 Non-patient / Non-visit Dr. Tamica Whitley Work Phone: [facility] Work Phone: Start: 10-08-2023 Non-patient / Non-visit Dr. Tamica Whitley Work Phone: [facility] Work Phone: Start: 10-07-2023 Non-patient / Non-visit Dr. Tamica Whitley Work Phone: [facility] Work Phone: Start: 10-06-2023 Non-patient / Non-visit Dr. Tamica Whitley Work Phone: [facility] Work Phone: Start: 10-05-2023 Non-patient / Non-visit Dr. Tamica Whitley Work Phone: [facility] Work Phone: Start: 10-04-2023 Non-patient / Non-visit Dr. Tamica Whitley Work Phone: [facility] Work Phone: Start: 10-03-2023 Non-patient / Non-visit Dr. Tamica Whitley Work Phone: [facility] Work Phone: Start: 10-02-2023 Non-patient / Non-visit Dr. Tamica Whitley Work Phone: [facility] Work Phone: Start: 10-01-2023 Non-patient / Non-visit Dr. Tamica Whitley Work Phone: [facility] Work Phone: Start: 10-01-2023 Non-patient / Non-visit Dr. Tamica Whitley Work Phone: [facility] Start: 10-01-2023 Non-patient / Non-visit Dr. Tamica Whitley Work Phone: [facility] Start: 09-30-2023 Non-patient / Non-visit Dr. Tamica Whitley Work Phone: [facility] Start: 09-30-2023 Non-patient / Non-visit Dr. Tamica Whitley Work Phone: [facility] Work Phone: Start: 09-29-2023 End: 10-10-2023 Evaluation and management of inpatient [facility] 3 Work Phone: Procedures Date Procedure Procedure Detail Performing Clinician Start: 01-07-2025 Total iron binding c apacity measurement Dr. Sharif Ramos MD Work Phone: Start: 12-03-2024 Vitamin D, 25-hydrox y measurement Dr. Sharif Ramos MD Work Phone: Comment on above: Vitamin D StatusDefi ciency: <20 ng/mL (50nmol/L)Insufficiency: 20-30 ng/mL (50-75 nmol/L)Sufficiency: 30-100 ng/mL (75-250 nmol/L)Toxicity: >100 ng/mL (>250 nmol/L) Start: 08-13-[address] German Lovett [...] Activity Detail Author Start: 10-10-2023 Patient discharge [facility] Start: 10-04-2023 Verification routine [facility] Start: 10-02-2023 Care planning and pr oblem solving actions [facility] Start: 10-01-2023 Consultation [facility] Start: 09-30-2023 End: 09-30-[address] [facility] Start: 09-30-2023 Ambulation therapy management [facility] Start: 09-30-2023 Application of device [facility] Start: 09-30-2023 Exercises [facility] Start: 09-30-2023 Following clinical p athway protocol [facility] Start: 09-30-2023 Introduction of urin gideon catheter [facility] Start: 09-30-2023 Neurovascular assessment [facility] Start: 09-30-2023 Patient education [facility] Start: 09-30-2023 Provision of activit y privileges [facility] Start: 09-30-2023 Referral to occupati onal therapist [facility] Start: 09-30-2023 Referral to service [facility] Start: 09-30-2023 Skin care [facility] Start: 09-30-2023 Vital signs measurements [facility] Start: 09-30-2023 Wound care [facility] Start: 09-30-2023 Recommendation to co ntinue with treatment [facility] Start: 09-29-2023 Application of inter mittent pneumatic compression device [facility] Start: 09-29-2023 Following clinical p athway protocol [facility] Start: 09-29-2023 Assessment of risk o f venous thromboembolism [facility] Start: 09-29-2023 Documentation procedure [facility] Start: 09-29-2023 Incentive spirometry [facility] Start: 09-29-2023 Insertion of cathete r into peripheral vein [facility] Start: 09-29-2023 Measuring intake and output [facility] Start: 09-29-2023 Providing care accor ding to standard [facility] Start: 09-29-2023 Referral to service [facility] Start: 09-29-2023 [facility] Start: 09-29-2023 Hospital admission, emergency, from emergency room, medical nature [facility] Start: 09-29-2023 Verification routine [facility] Start: 09-29-2023 Admission procedure [facility] Start: 09-29-2023 [facility] Start: 09-29-2023 Patient referral to dietitian [facility] Patient Education Bruises (Contusions) ED Skin Tear (Skin Avulsion) [facility] Work Phone: Patient referral [facility] Work Phone: Immunizations Immunization Date Immunization Notes Care Provider Fa cility 09-29-2023 tetanus toxoid, redu jorge diphtheria toxoid, and acellular pertussis vaccine, adsorbed [facility] Payers Date Payer Category Payer Unknown [id number] 2024 Medicaid [id number] 2024 Private Health Insurance [id number] 2024 Self-pay Unknown [id number] 2.16.8 40.1.827677.3.579.2.462 Unknown [id number] 2.16.8 40.1.136513.3.579.2.462 Unknown [id number] 2.16.8 40.1.104960.3.579.2.462 Unknown [id number] 2.16.8 40.1.268516.3.579.2.462 Unknown [id number] 2.16.8 40.1.927840.3.579.2.462 Unknown [id number] 2.16.8 40.1.305293.3.579.2.462 Unknown [id number] 2.16.8 40.1.443602.3.579.2.462 Unknown [id number] 2.16.8 40.1.513804.3.579.2.462 Unknown [id number] 2.16.8 40.1.384179.3.579.2.462 Unknown [id number] 2.16.8 40.1.388886.3.579.2.462 Unknown [id number] 2.16.8 40.1.397037.3.579.2.462 Unknown [id number] 2.16.8 40.1.767804.3.579.2.462 Unknown [id number] 2.16.8 40.1.866846.3.579.2.462 Unknown [id number] 2.16.8 40.1.518235.3.579.2.462 Unknown [id number] 2.16.8 40.1.140426.3.579.2.462 Unknown [id number] 2.16.8 40.1.497386.3.579.2.462 Unknown [id number] 2.16.8 40.1.785900.3.579.2.462 Unknown [id number] 2.16.8 40.1.625187.3.579.2.462 Unknown [id number] 2.16.8 40.1.005830.3.579.2.462 Unknown [id number] 2.16.8 40.1.259113.3.579.2.462 Unknown [id number] 2.16.8 40.1.863245.3.579.2.462 Unknown [id number] 2.16.8 40.1.148377.3.579.2.462 Unknown [id number] 2.16.8 40.1.203248.3.579.2.462 Unknown [id number] 2.16.8 40.1.346530.3.579.2.462 Unknown [id number] 2.16.8 40.1.993233.3.579.2.462 Unknown [id number] 2.16.8 40.1.717413.3.579.2.462 Unknown [id number] 2.16.8 40.1.176806.3.579.2.462 Unknown [id number] 2.16.8 40.1.374030.3.579.2.462 Unknown [id number] 2.16.8 40.1.143234.3.579.2.462 Unknown [id number] 2.16.8 40.1.552250.3.579.2.462 Unknown [id number] 2.16.8 40.1.805857.3.579.2.462 Unknown [id number] 2.16.8 40.1.624122.3.579.2.462 Unknown [id number] 2.16.8 40.1.579101.3.579.2.462 Unknown [id number] 2.16.8 40.1.187107.3.579.2.462 Social History Date Type Detail Facility Start: 09-29-2023 End: 09-29-2023 Tobacco smoking status LAIS Unknown if ever smoked [facility] Start: 1935 Sex Assigned At Female [facility] Start: 06-19-2024 End: 12-17-2024 Tobacco smoking status NHIS Never smoked tobacco (finding) [facility] Start: 09-04-2024 End: 09-04-2024 Sex Female (finding) [facility] Medical Equipment Procedure Code Equipment [...] uncemented hemiarthroplasty of hip Orthopaedic cement, non-antimicrobial ()[id number] FDA Start: 09-30-2023 Primary uncemented hemiarthroplasty [...] Result Facility 10-10-2023 Functional status Bathroom Privilege [facility] Work Phone: Mental Status Date Assessment Result Facility 10-10-2023 Cognitive function Voice/Name [facility] Work Phone: Clinical Notes 09-29-2023 to 07-09-2024 Note Date & Type Note Facility 07-09-2024 Evaluation note Diagnosis Onset Date Resolution CHF (congestive heart failure) acute July 09 10:48am 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 Work Phone: 1(375) 656-173401-15-2025 Evaluation note* Diagnosis Onset Date Resolution Status [...] July 09 10:48am Ischemic cardiomyopathy acute F ebary 2024 10:48am [facility] Work Phone: 1(460) 294-643005-08-2024 Consult note Author Jazmin Oliveira [facility] October 10, 2023 10:50am Note Date/Time October 10, 2023 10:50a m [facility] Medical Records Department [address] [place] [address] Counseling Note - Pharmacy 10/10/23 1050 MR#: [id number] Acct: [id number] Name: SHERRIE LOZANO Rep #:[id number] : 1935 88 From: Jazmin Oliveira PCP: Dr. Viet Lovett MD Status:ADM I N Y Location: [facility] SD314-4 Pharmacy PR Med Reconciliation Pharmacy Service has performed discharge [...] Signature (if applicable): Date CC: ~ Signed [facility] Work Phone: 1(487) 909-500605-07-2024 Progress note Author Tammi Frost [facility] October 09, 2023 4:09pm Note Date/Time October 09, 2023 4:09pm [facility] Medical Records Department [address] [place] [address] Progress Note - Hospitalist 10/09/23 1607 MR#: [id number] Acct: [id number] Name: SHERRIE LOZANO Rep #:[id number] : 1935 88 From: Tammi Frost DO PCP: Dr. 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 Patient's been medically ready for discharge since 10/04/2023. Charges/Coding Visit Charges Inpatient E&M: 49152 Subs Hosp L1 10/09/23 1609 <Electronically signed by Tammi Frost DO> Cosigner Signature (if applicable): CC: ~ Signed [facility] Work Phone: 1(249) 674-125705-06-2024 Progress note Author Tammi Frost [facility] October 08, 2023 5:12pm Note Date/Time October 08, 2023 5:12pm [facility] Medical Records Department [address] [facility] [place] [address] Progress Note - Hospitalist 10/08/23 1705 MR#: [id number] Acct: [id number] Name: SHERRIE LOZANO Rep #:[id number] : 1935 88 From: Tammi Frost DO PCP: Dr. Viet Lovett MD Status:ADM I N Location: [facility] KA715-8 Reason for Visit Reason for Visit: Left hip pain status post fall Subjective Subjective Patient denies any issues currently. Unfortunately, insurance [place] of [place] and does not cover [facility]. They are making exception and currently reviewing. 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 Patient's been medically ready for discharge since 10/04/2023. Charges/Coding Visit Charges Inpatient E&M: 14515 Subs Hosp L2 10/08/23 1712 <Electronically signed by Tammi Frost DO> Cosigner Signature (if applicable): CC: ~ Signed [facility] Work Phone: 1(734) 274-588805-06-2024 Discharge summary Author Tammi Frost [facility] October 08, 2023 10:21am Note Date/Time October 08, 2023 10:21a m [facility] Medical Records Department [address] [place] [address] Transfer to [facility] Care MR#: [id number] Acct: [id number] Name: SHERRIE LOZANO Rep #:[id number] : 1935 88 From: Tammi Frost DO PCP: Dr. Viet Lovett MD Status:ADM I N Certification of patient admission REQUIRED AT TIME OF ADMISSION. I CERTIFY THAT POST-HOSPITAL ECF SERVICES ARE REQUIRED TO BE GIVEN ON AN IN-PATIENT BASIS BECAUSE OF THE ABOVE NAMED PATIENT'S NEED FOR USP CARE ON A CONTINUING BASIS FOR THE CONDITION(S) FOR WHICH HE/SHE WAS RECEIVING IN-PATIENT HOSPITAL SERVICES PRIOR TO HIS/HER TRANSFER TO THE [facility]. 10/08/23 1021<Electronically signed by Tammi Frost DO> [...] Other malaise Allergies/Procedures Done in Hospital Allergies Hxwwxcg-RMN-RhS Reductase Inhibitor Adverse Reaction (Mild, Verified 09/29/23 [...] Waite MD; Dr. Viet Lovett MD ~ [facility] Work Phone: 1(597) 658-455605-05-2024 Progress note Author Joon Yuen [facility] October 07, 2023 12:45pm Note Date/Time October 07, 2023 11:16a [facility] Medical Records Department [address] [place] [address] Progress Note - Hospitalist 10/07/23 1115 MR#: [id number] Acct: [id number] Name: SHERRIE LOZANO Rep #:[id number] : 1935 88 From: Joon garcía DO PCP: Dr. Viet Lovett MD Status:ADM I N Location: [place] [address]30055-1 Reason for Visit Reason for Visit: Diagnoses [...] 10/02/23 12:07 RMA (Rec: 10/02/23 12:08 RMA [id number]) Nutrition Malnutrition Evidence of Malnutrition Exists Yes [...] Patient is an 88-year-old female who presented [facility] ED on 09/29/2023 after a [...] management following. Lives in assisted living side [facility], planning for discharge to SNF side there, [...] 25 minutes. Charges/Coding Visit Charges Inpatient E&M: 24416 Subs Hosp L1 10/07/23 6046 <Electronically signed by Joon Yuen DO> Cosigner Signature (if applicable): CC: ~ Signed [facility] Work Phone: 1(424) 220-725005-04-2024 Progress note Author Joon Yuen [facility] October 06, 2023 11:01am Note Date/Time October 06, 2023 9:30am [facility] Medical Records Department [address] [place] [address] Progress Note - Hospitalist 10/06/23 0930 MR#: [id number] Acct: [id number] Name: SHERRIE LOZANO Rep #:[id number] : 1935 88 From: Joon Tyron scar DO PCP: Dr. Viet Lovett MD Status:ADM I N Location: [address] Reason for Visit Reason for Visit: Diagnoses [...] Intake and Output for Last 24 Hours 05/07/2810/05/23 10/06/23 23:59 23:59 23:59 Intake Total 700 / 700 Balance 700 / 700 Medical Nutrition Assessment Dietitian: Malnutrition Criteria Met Start: 09/30/23 15:18 Freq: Status: Active Protocol: Document 10/02/23 12:07 RMA (Rec: 10/02/23 12:08 RMA [id number]) Nutrition Malnutrition Evidence of Malnutrition Exists Yes [...] Patient is an 88-year-old female who presented [facility] ED on 09/29/2023 after a [...] management following. Lives in assisted living side [facility], planning for discharge to side there, has been complicated by insurance [...] 25 minutes. Charges/Coding Visit Charges Inpatient E&M: 51531 [facility] Hosp L1 10/06/23 1101 <Electronically signed by Joon Yuen DO> Cosigner Signature (if applicable): CC: ~ Signed [facility] Work Phone: 1(921) 462-633805-03-2024 Progress note Author [facility] October 05, 2023 1:37pm Note Date/Time October 05, 2023 1:37pm [facility] Medical Records Department [address] [place] [address] Progress Note - Hospitalist 10/05/23 1335 MR#: [id number] Acct: [id number] Name: SHERRIE LOZANO Rep #:[id number] : 1935 88 From: Joon garcía DO PCP: Dr. Viet Lovett MD Status:ADM I N Location: [place] [id number] Reason for Visit Reason for Visit: Diagnoses [...] 10/02/23 12:07 RMA (Rec: 10/02/23 12:08 RMA [id number]) Nutrition Malnutrition Evidence of Malnutrition Exists Yes [...] Patient is an 88-year-old female who presented [facility] ED on 09/29/2023 after a [...] management following. Lives in assisted living side [facility], planning for discharge to SNF side there. [...] 25 minutes. Charges/Coding Visit Charges Inpatient E&M: 05798 Subs Hosp L1 10/05/23 1337 <Electronically signed by Joon Yuen DO> Cosigner Signature (if applicable): CC: ~ Signed [facility] Work Phone: 1(689) 868-796605-02-2024 Progress note Author [facility] October 04, 2023 6:56pm Note Date/Time October 04, 2023 1:47pm [facility] Medical Records Department [address] [place] [address] Progress Note - Hospitalist 10/04/23 1347 MR#: [id number] Acct: [id number] Name: SHERRIE LOZANO Rep #:[id number] : 1935 88 From: Joon garcía DO PCP: Dr. Viet Lovett MD Status:ADM I N Location: [place] [address] Reason for Visit Reason for Visit: Diagnoses [...] place. Patient currently resides with her at [facility] in the assisted living side. Current plan is for patient to discharge to fci side of [facility] once the insurance issues have been worked out. No other acute concerns this morning. Objective Data Objective Data Vital Signs: Vital Signs Temp Pulse Resp BP Pulse Ox O2 Del Method O2 Flow Rate 98.2 F 72 18 104/45 L 100 Room Air 2 10/04/23 10:10/04/23 11:19 10/04/23 10:10/04/23 11:19 10/04/23 10:10/04/23 10:10/01/23 01:28 Oxygen Flow Rate (L/min) [...] 10/02/23 12:07 RMA (Rec: 10/02/23 12:08 RMA [id number]) Nutrition Malnutrition Evidence of Malnutrition Exists Yes [...] Patient is an 88-year-old female who presented [facility] ED on 09/29/2023 after a fall with left hip pain. 1. Left femoral neck fracture due to mechanical fall, acute on chronic debility ? Orthopedics following. S/p left hip hemiarthroplasty on 4/28. Patient tolerated procedure well, no postoperative complications to this point. DVT prophylaxis with Eliquis 2.5 mg twice daily. Pain management with scheduled Tylenol, oxycodone as needed. PT/OT/case management following. Lives in assisted living side of [facility], planning for discharge to SNF side there. [...] 35 minutes. Charges/Coding Visit Charges Inpatient E&M: 70188 Subs Hosp L2 10/04/23 9196 <Electronically signed by Joon Yuen DO> Cosigner Signature (if applicable): CC: ~ Signed [facility] Work Phone: 1(294) 362-696105-01-2024 Progress note Author Anson Waite [facility] October 03, 2023 1:28pm Note Date/Time October 03, 2023 1:20pm [facility] Medical Records Department [address] [place] [address] Progress Note - Hospitalist 10/03/23 1315 MR#: [id number] Acct: [id number] Name: SHERRIE LOZANO Rep #:[id number] : 1935 88 From: Anson Pritchard PCP: Dr. Viet Lovett MD Status:ADM I N Location: [place] [address] Reason for Visit Reason for Visit: Diagnoses [...] 10/02/23 12:07 RMA (Rec: 10/02/23 12:08 RMA [id number]) Nutrition Malnutrition Evidence of Malnutrition Exists Yes [...] PLAN: Plan 88-year-old female was admitted to [facility] floor after she lost her balance, [...] Has Drake catheter. Give Tylenol prn for kdrb-jj-orqgznxt (level 1-5/10) pain or fever. Give Morphine [...] evidence of postoperative complication. Discussed with the returned case inspector to start for precertification/authorization for SNF 10/01: [...] 30%. No documentation available. 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 [...] EDT , Charges/Coding Visit Charges Inpatient E&M: 12349 Subs Hosp L2 10/03/23 1328 <Electronically signed by Anson Waite MD> Cosigner Signature (if applicable): CC: ~ Signed [facility] Work Phone: 1(567) 497-324404-30-2024 Progress note Author Anson Waite [facility] October 02, 2023 1:43pm Note Date/Time October 02, 2023 1:3 7pm [facility] Medical Records Department [address] [place] [address] Progress Note - Hospitalist 10/02/23 1335 MR#: [id number] Acct: [id number] Name: SHERRIE LOZANO Rep #:[id number] : 1935 88 From: Anson Pritchard PCP: Dr. Viet Lovett MD Status:ADM I N Location: [place] [address]55-1 Reason for Visit Reason for Visit: Diagnoses [...] 10/02/23 12:07 RMA (Rec: 10/02/23 12:08 RMA [id number]) Nutrition Malnutrition Evidence of Malnutrition Exists Yes [...] 84.0 H, Lymph % (Auto) 7.3 L, Rawlins % (Auto) 7.4, Eos % (Auto) 0.6, [...] PLAN: Plan 88-year-old female was admitted to [facility] floor after she lost her balance, [...] Has Drake catheter. Give Tylenol prn for ksyv-fx-zubmfjro (level 1-5/10) pain or fever. Give Morphine [...] evidence of postoperative complication. Discussed with the returned case inspector to start for precertification/authorization for SNF 10/01: [...] 30%. No documentation available. 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 [...] EDT , Charges/Coding Visit Charges Inpatient E&M: 39789 Subs Hosp L2 10/02/23 1343 <Electronically signed by Anson Waite MD> Cosigner Signature (if applicable): CC: ~ Signed [facility] Work Phone: 1(242) [phone] Progress note Author Anson Waite [facility] October 01, 2023 4:41pm Note Date/Time October 01, 2023 4:[address] [facility] Medical Records Department [address] [place] [address] Progress Note - Hospitalist 10/01/23 1632 MR#: [id number] Acct: [id number] Name: SHERRIE LOZANO Rep #:[id number] : 1935 88 From: Anson Pritchard PCP: Dr. Viet Lovett MD Status:ADM I N Location: [place] [id number] Reason for Visit Reason for Visit: Diagnoses [...] 09/30/23 15:18 RMA (Rec: 09/30/23 15:18 RMA [id number]) Nutrition Malnutrition Evidence of Malnutrition Exists Yes [...] 83.6 H, Lymph % (Auto) 6.6 L, Rawlins % (Auto) 9.1, Eos % (Auto) 0.0, [...] PLAN: Plan 88-year-old female was admitted to [facility] after she lost her balance, left knee [...] Has Drake catheter. Give Tylenol prn for xwlh-ch-rvrrtpof (level 1-5/10) pain or fever. Give Morphine [...] evidence of postoperative complication. Discussed with the returned case inspector to start for precertification/authorization for SNF CKD [...] 30%. No documentation available. 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 [...] 83.6 H, Lymph % (Auto) 6.6 L, Rawlins % (Auto) 9.1, Eos % (Auto) 0.0, [...] EDT , Charges/Coding Visit Charges Inpatient E&M: 83426 Subs Hosp L2 10/01/23 1641 <Electronically signed by Anson Waite MD> Cosigner Signature (if applicable): CC: ~ Signed [facility] Work Phone: 1(226) 664-925004-29-2024 Progress note Author Amol Yoder [facility] October 01, 2023 11:45am Note Date/Time October 01, 2023 11: 45am [facility] Medical Records Department [address] [place] [address] Progress Note - Orthopedic 10/01/23 1142 MR#: [id number] Acct: [id number] Name: SHERRIE LOZANO Rep #:[id number] : 1935 88 From: Amol Yoder DO PCP: Dr. Viet Lovett MD Status:ADM I N [facility] Subjective Subjective Seen and examined. Pain controlled [...] 09/30/23 15:18 RMA (Rec: 09/30/23 15:18 RMA [id number]) Nutrition Malnutrition Evidence of Malnutrition Exists Yes [...] 83.6 H, Lymph % (Auto) 6.6 L, Rawlins % (Auto) 9.1, Eos % (Auto) 0.0, [...] wound check if patient is at a [facility] rehab or TCU I am happy to see her there instead. Call with any questions or concerns 10/01/23 5394 <Electronically signed by Amol Yoder DO> Cosigner Signature (if applicable): CC: ~ Signed [facility] Work Phone: 1(828) 308-943904-28-2024 Progress note Author Anson Waite [facility] September 30, 2023 12:41pm Note Date/Time September 30, 2023 7:[address] [facility] Medical Records Department [address] [place] [address] Progress Note - Hospitalist 09/30/23 0752 MR#: [id number] Acct: [id number] Name: SHERRIE LOZANO Rep #:[id number] : 1935 88 From: Anson Pritchard PCP: Dr. Viet Lovett MD Status:ADM I N Location: [place] [address] Reason for Visit Reason for Visit: Diagnoses [...] (Auto) 71.8 H, Lymph % (Auto) 19.6, Rawlins % (Auto) 5.8, Eos % (Auto) 1.6, [...] 77.8 H, Lymph % (Auto) 12.0 L, Rawlins % (Auto) 7.9, Eos % (Auto) 1.3, [...] EDT Reading Location ID and State: [address] [place] [address] , Service support , Chest X-Ray 09/29/23 14:25 IMPRESSION: Cardiac enlargement. No focal infiltrate. Electronically Signed: Enrrique Carty MD at 14:48 EDT Reading Location ID and State: [address] [place] [address] , Service support , Hip/Pelvis X-Ray 09/29/23 14:25 IMPRESSION: Left femoral neck fracture. Electronically Signed: Enrrique Carty MD at 14:49 EDT Reading Location ID and State: [address] [place] [address] , Service support , Physical Exam Narrative Seen and examined. [...] PLAN: Plan 88-year-old female was admitted to [facility] after she lost her balance, left knee [...] Has Drake catheter. Give Tylenol prn for qoko-lq-csynylhb (level 1-5/10) pain or fever. Give Morphine [...] 30%. No documentation available. 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 [...] (Auto) 71.8 H, Lymph % (Auto) 19.6, Rawlins % (Auto) 5.8, Eos % (Auto) 1.6, [...] 77.8 H, Lymph % (Auto) 12.0 L, Rawlins % (Auto) 7.9, Eos % (Auto) 1.3, [...] EDT Reading Location ID and State: [address] [place] [address] , Service support , Chest X-Ray 09/29/23 14:25 IMPRESSION: Cardiac enlargement. No focal infiltrate. Electronically Signed: Enrrique Carty MD at 14:48 EDT Reading Location ID and State: [address] [place] [address] , Service support , Hip/Pelvis X-Ray 09/29/23 14:25 IMPRESSION: Left femoral neck fracture. Electronically Signed: Enrrique Carty MD at 14:49 EDT Reading Location ID and State: [address] [place] [address] , Service support , Charges/Coding Addendum Addendum: [...] is 40 minutes. Visit Charges Inpatient E&M: 58496 Subs Hosp L3 09/30/23 1241 <Electronically signed by Anson Waite MD> Cosigner Signature (if applicable): CC: ~ Signed [facility] Work Phone: 1(724) 315-814504-28-2024 Procedure [facility] 09-30-2023 Consult note Author Amol Yoder [facility] September 30, 2023 10:49am Note Date/Time September 30, 2023 10: 49am [facility] Medical Records Department [address] [place] [address] Consultation 09/30/23 1046 MR#: [id number] Acct: [id number] Name: SHERRIE LOZANO Rep #:[id number] : 1935 88 From: Amol Yoder DO PCP: Dr. Viet Lovett MD Status:ADM I N [place] [id number] Assessment & Plan Assessment/Plan (1) Fracture of [...] community ambulator with walker who lives with [facility] who presents after ground-level fall where her knee buckled landing ontoher left hip immediately had significant groin pain and inability ambulate x-rays taken in the emergency room department demonstrated displaced femoral neck fracture. [facility] Medical History Brain bleed CHF (congestive heart [...] Type Severity Reaction Status Date / Time Esnljju-WYG-VsK Reductase AdvReac Mild muscle Verified 09/29/23 12:42 [...] (Auto) 71.8 H, Lymph % (Auto) 19.6, Rawlins % (Auto) 5.8, Eos % (Auto) 1.6, [...] 77.8 H, Lymph % (Auto) 12.0 L, Rawlins % (Auto) 7.9, Eos % (Auto) 1.3, [...] applicable): CC: Dr. Viet Lovett MD~ Signed [facility] Work Phone: 1(846) 256-218604-27-2024 History and physical note Author Mehdi Cabrera [facility] September 29, 2023 6:39pm Note Date/Time September 29, 2023 2:[address] [facility] Medical Records Department [address] [place] [address] H&P Exam - Hospitalist 09/29/23 1407 MR#: [id number] Acct: [id number] Name: SHERRIE LOZANO Rep #:[id number] : 1935 88 From: Mehdi Lundy DO PCP: Dr. Viet Lovett MD Status:ADM I N [place] [facility] [place] [id number] [facility] - General General Date of Admission: 09/29/23 [...] with subsequent severe photosensitivity who presents to [facility] ERcomplaining of fall with Left hip fracture. Ms. Lozano reports her symptoms began approximately one hour prior to arrival when she lost her balance after her Left knee "buckled" and then gave out while she was [...] patient and her recently moved her from [place], [place] since she grew up in [place], [place]. In the ER her X-rays were positive for a Left femoral neck fracture with clinical evidenceof Left lateral elbow skin tears x 2 and she was then admitted to the general medical floor for ongoing care for a stay that is expected to be greater than 48hours. [facility] Medical History Brain bleed CHF (congestive heart [...] Type Severity Reaction Status Date / Time Isxkuvn-OJS-OiV Reductase AdvReac Mild muscle Verified 09/29/23 12:42 [...] EDT Reading Location ID and State: [address] [place] [address] , Service support , Assessment & Plan [...] on strict bedrest. Give Tylenol prn for thxy-tf-twxjxgoi (level 1-5/10) pain or fever. Give Morphine [...] 55 minutes. Charges/Coding Visit Charges Inpatient E&M: 10548 Init Hosp L2 09/29/23 1839 <Electronically signed by Mehdi Crespo DO> Cosigner Signature (if applicable): CC: Dr. Mehdi Crespo DO; Dr. Viet Lovett MD~ Signed [facility] Work Phone: 1(157) 189-298204-27-2024 Discharge summary Author Grant Whitley [facility] September 29, 2023 2:48pm Note Date/Time September 29, 2023 12: 49pm [facility] Medical Records Department [address] [place] [address] Emergency Department Summary 09/29/23 MR#: [id number] Acct: [id number] Name: SHERRIE LOZANO Rep #:[id number] : 1935 88 From: Grant Whitley MD PCP: Dr. Viet Lovett MD Status:ADM I N Location: [place] [address] HPI HPI - Fall History of Present [...] woman. She and her recently moved from [place]. She grew up in [place]. They are returning to a assisted living [...] Type Severity Reaction Status Date / Time Dkqszlw-GKE-NcP Reductase AdvReac Mild muscle Verified 09/29/23 12:42 [...] Patient has no clonus or Babinski sign. Bland Coma Scale: document GCS findings Spontaneous Obeys [...] your Primary Care Provider. Call [facility] ([phone]) or report to the closest Emergency Room. [...] cc: Dr. Viet Lovett MD ~* Signed [facility] Work Phone: 1(601) 704-441304-27-2024 Discharge summary Author Grant Whitley [facility] September 29, 2023 2:48pm Note Date/Time September 29, 2023 12: 49pm [facility] Medical Records Department [address] [place] [address] Emergency Department Summary 09/29/23 MR#: [id number] Acct: [id number] Name: SHERRIE LOZANO Rep #:[id number] : 1935 88 From: Grant Whitley MD PCP: Dr. Viet Lovett MD Status:ADM I N Location: MS3 [id number] HPI HPI - Fall History of Present [...] woman. She and her recently moved from [place]. She grew up in [place]. They are returning to a assisted living [...] Type Severity Reaction Status Date / Time Ubnemdl-WTN-XlU Reductase AdvReac Mild muscle Verified 09/29/23 12:42 [...] problems, contact your Primary Care Provider. Call [facility] ([phone]) or report to the closest Emergency Room. [...] cc: Dr. Viet Lovett MD ~* Signed [facility] Work Phone: Evaluation note* Diagnosis Onset Date Resolution Status Contusion of pelvic region a cute Fracture of femoral neck, left, closed acute Injury due to fall acute ISTAP type 3 skin tear of left elbow acute [facility] Work Phone: Evaluation note* Diagnosis [...] pacemaker acute S/P hip hemiarthroplasty acu te [facility] Work Phone: Evaluation noteNo assessment information available [facility] Work Phone: Reason for referral (narrative)No reason for referral information available[facility] Work Phone: Chief Complaint and Reason for [...] Date LABWORK May 07, 2024 5 :10am USP LAB WORK May 15 5:00am USP LAB WORK June 06, 2024 5:00am MONTHLY EXAM June 17, 2024 4 :00pm ESTABLISH (WVM) June 18, 2024 1 :04pm NEW CONCERN June 24, 2024 9 :42am USP LAB WORK June 26, 2024 5:00am Pacer Check Remote July 09, 2024 9 :00am NEW ENROLEE (SCANNED) July 09, 2024 10:48am MONTHLY EXAM July 31, 2024 9:35am MONTHLY EXAM August 12, 2024 3:1 5pm USP LAB WORK August 13, 2024 5 :00am USP LAB WORK August 13, 2024 6 :30am [...] MONTHLY EXAM August 12, 2024 3:1 5pm USP LAB WORK August 13, 2024 5 :00am USP LAB WORK August 13, 2024 6 :30am Pacer Check Remote August 17, 2024 3:1 3am MONTHLY NOTE September 02, 2024 3:42 pm LABWORK October 08, 2024 5:00am Reason for Visit Admit Date CHF (congestive heart failure) July 09, 2024 10:48am ICD (implantable cardioverter-defibrilla tor) in place July 09, 2024 10:48am Ischemic cardiomyopathy July 09 10:48am Chief Complaint Admit Date MONTHLY EXAM July 31, 2024 9:35am MONTHLY EXAM August 12, 2024 3:1 5pm USP LAB WORK August 13, 2024 5 :00am USP LAB WORK August 13, 2024 6 :30am Pacer Check Remote August 17, 2024 3:1 3am MONTHLY NOTE September 02, 2024 3:42 pm LABWORK October 08, 2024 5:00am Pacer Check Remote October 16, 2024 3:01a m LABWORK November 05, 2024 5:00a m Chief Complaint Admit Date MONTHLY NOTE September 02, 2024 3:42 pm MONTHLY EXAM October 07, 2024 2:30pm LABWORK October 08, 2024 5:00am Pacer Check Remote October 16, 2024 3:01a m LABWORK November 05, 2024 5:00a m Chief Complaint Admit Date MONTHLY NOTE September 02, 2024 3:42 pm MONTHLY EXAM October 07, 2024 2:30pm LABWORK October 08, 2024 5:00am Pacer Check Remote October 16, 2024 3:01a m LABWORK November 05, 2024 5:00a m MONTHLY EXAM November 20, 2024 11:0 0am LABWORK December 03, 2024 5:00a m Chief Complaint Admit Date MONTHLY NOTE September 02, 2024 3:42 pm MONTHLY EXAM October 07, 2024 2:30pm LABWORK October 08, 2024 5:00am NEW CONCERN October 15, 2024 4:03p m Pacer Check Remote October 16, 2024 3:01a m LABWORK November 05, 2024 5:00a m MONTHLY EXAM November 20, 2024 11:0 0am LABWORK December 03, 2024 5:00a m Chief Complaint Admit Date MONTHLY EXAM October 07, 2024 2:30pm LABWORK October 08, 2024 5:00am NEW CONCERN October 15, 2024 4:03p m Pacer Check Remote October 16, 2024 3:01a m LABWORK November 05, 2024 5:00a m MONTHLY EXAM November 20, 2024 11:0 0am LABWORK December 03, 2024 5:00a m Monthly Exam December 16, 2024 4:06 pm Chief Complaint Admit Date MONTHLY EXAM October 07, 2024 2:30pm LABWORK October 08, 2024 5:00am NEW CONCERN October 15, 2024 4:03p m Pacer Check Remote October 16, 2024 3:01a m LABWORK November 05, 2024 5:00a m MONTHLY EXAM November 20, 2024 11:0 0am LABWORK December 03, 2024 5:00a m Monthly Exam December 16, 2024 4:06 pm USP LAB WORK December 31, 2024 5: 00am Pacer Check Remote January 15, 2025 2: 00am Chief Complaint Admit Date MONTHLY EXAM October 07, 2024 2:30pm LABWORK October 08, 2024 5:00am NEW CONCERN October 15, 2024 4:03p m Pacer Check Remote October 16, 2024 3:01a m LABWORK November 05, 2024 5:00a m MONTHLY EXAM November 20, 2024 11:0 0am LABWORK December 03, 2024 5:00a m Monthly Exam December 16, 2024 4:06 pm USP LAB WORK December 31, 2024 5: 00am USP LAB WORK January 07, 2025 5 :00am MONTHLY NOTE January 07, 2025 4:5 7pm Pacer Check Remote January 15, 2025 2: 00am Advance Directives No Advanced Directives Records Found Advance Directive Response Recorded Date/ Time Living Will Yes September 29, 2023 12:43pm Power of End Touching Machine Operator Yes September 28 12:43pm Name of Medical Power of End Touching Machine Operator Archana bullard September 29, 2023 12:43pm Advance Directive Response Recorded Date/ Time Name of Medical Power of End Touching Machine Operator Archana bullard September 29, 2023 3:25pm Living Will Yes September 29, 2023 3:25pm Power of End Touching Machine Operator Yes September 28 3:25pm Summary Purpose Family [...] Mehdi Crespo DO Admit Provider, Attending Pr jimenez Active Team Status: Active Member Role Status Dates Dr. Grant Whitley MD Emergency Provider Active Dr. Viet Lovett MD Primary Care Provider Active Dr. Mehdi Crespo DO Admit Provider, Other Provid er Active Dr. Anson Waite MD Referring Provider, Other Provi johanne Active Dr. Amol Yoder , Attending Provider Active Team Status: Active Member [...] Other Provi johanne Active Dr. Amol Yoder , Other Provider Active Team Status: Active Member [...] 2024 End: June 24, 2024 Lashae Garner KEY HOLDER, KEY HOLDER-C Attending Provider Active Start: June 24, 2024 [...] Inactive Member Role Status Dates Dr. Sharif Raoms MD Primary Care Provider Active Start: August [...] 2024 End: September 02, 2024 Lashae Garner KEY HOLDER, KEY HOLDER-C Attending Provider Active Start: September 02, 2024 End: September 02, 2024 Team Status: Inactive Member Role Status Dates Dr. Sharif Ramos MD Primary Care Provider Active Start: October 08, 2024 End: October 08, 2024 Sharif CARRENO MD Attending Provider Active Start: October 08, 2024 End: October 08, 2024 Team Status: Inactive Member Role Status Dates Dr. Sharif Ramos MD Primary Care Provider Active Start: October 16, 2024 End: October 16, 2024 Dr. Andrea Hawthorne MD Attending Provider Active S tart: October 16, 2024 End: October 16, 2024 Team Status: Active Member Role Status Dates Dr. Sharif Ramos MD Primary Care Provider Active Start: November 05, 2024 Sharif CARRENO MD Attending Provider Active Start: November 05, 2024 Team Status: Active Member Role/Relationship Status Dates Dr. Sharif Ramos MD Primary Care Provider Active Team Status: Inactive Member Role/Relationship Status Dates Dr. Sharif Ramos MD Primary Care Provider Active Start: September 02, 2024 End: September 02, 2024 Lashae Garner KEY HOLDER, KEY HOLDER-C Attending Provider Active Start: September 02, 2024 End: September 02, 2024 Team Status: Inactive Member Role/Relationship Status Dates Dr. Sharif Ramos MD Primary Care Provider Active Start: October 07, 2024 End: October 07, 2024 Dr. Sharif Ramos MD Attending Provider Active Start: October 07, 2024 End: October 07, 2024 Team Status: Inactive Member Role/Relationship Status Dates Dr. Sharif Ramos MD Primary Care Provider Active Start: October 08, 2024 End: October 08, 2024 Sharif CARRENO MD Attending Provider Active Start: October 08, 2024 End: October 08, 2024 Team Status: Inactive Member Role/Relationship Status Dates Dr. Sharif Ramos MD Primary Care Provider Active Start: October 16, 2024 End: October 16, 2024 Dr. Andrea Hawthorne MD Attending Provider Active S tart: October 16, 2024 End: October 16, 2024 Dr. Andrea Hawthorne MD Referring Provider Active S tart: October 16, 2024 End: October 16, 2024 Team Status: Active Member Role/Relationship Status Dates Dr. Sharif Ramos MD Primary Care Provider Active Start: November 05, 2024 Sharif CARRENO MD Attending Provider Active Start: November 05, 2024 Team Status: Active Member Role/Relationship Status Dates Dr. Sharif Ramos MD Primary Care Provider Active Start: December 03, 2024 Sharif CARRENO MD Attending Provider Active Start: December 03, 2024 Team Status: Inactive Member Role/Relationship Status Dates Dr. Sharif Ramos MD Primary Care Provider Active Start: November 20, 2024 End: November 20, 2024 ANA CRISTINA Camacho Attending Provider Active St art: November 20, 2024 End: November 20, 2024 Team Status: Active Member Role/Relationship Status Dates Dr. Sharif Ramos MD Primary Care Provider Active Start: December 03, 2024 Sharif CARRENO MD Attending Provider Active Start: December 03, 2024 Team Status: Inactive Member Role/Relationship Status Dates Dr. Sharif Ramos MD Primary Care Provider Active Start: October 15, 2024 End: October 15, 2024 Lashae Garner KEY HOLDER, KEY HOLDER-C Attending Provider Active Start: October 15, 2024 End: October 15, 2024 Team Status: Inactive Member Role/Relationship Status Dates Dr. Sharif Ramos MD Primary Care Provider Active Start: October 16, 2024 End: October 16, 2024 Dr. Andrea Hawthorne MD Attending Provider Active S tart: October 16, 2024 End: October 16, 2024 Dr. nAdrea Hawthorne MD Referring Provider Active S tart: October 16, 2024 End: October 16, 2024 Team Status: Active Member Role/Relationship Status Dates Dr. Sharif Ramos MD Primary Care Provider Active Start: November 05, 2024 Sharif CARRENO MD Attending Provider Active Start: November 05, 2024 Team Status: Inactive Member Role/Relationship Status Dates Dr. Sharif Ramos MD Primary Care Provider Active Start: November 20, 2024 End: November 20, 2024 ANA CRISTINA Camacho Attending Provider Active St art: November 20, 2024 End: November 20, 2024 Team Status: Active Member Role/Relationship Status Dates Dr. Sharif Ramos MD Primary Care Provider Active Start: December 03, 2024 Sharif CARRENO MD Attending Provider Active Start: December 03, 2024 Team Status: Active Member Role/Relationship Status Dates Dr. Sharif Ramos MD Primary Care Provider Active Start: December 31, 2024 Sharif CARRENO MD Attending Provider Active Start: December 31, 2024 Team Status: Inactive Member Role/Relationship Status Dates Dr. Sharif Ramos MD Primary Care Provider Active Start: October 07, 2024 End: October 07, 2024 Dr. Sharif Ramos MD Attending Provider Active Start: October 07, 2024 End: October 07, 2024 Team Status: Inactive Member Role/Relationship Status Dates Dr. Sharif Ramos MD Primary Care Provider Active Start: October 08, 2024 End: October 08, 2024 Sharif CARRENO MD Attending Provider Active Start: October 08, 2024 End: October 08, 2024 Team Status: Inactive Member Role/Relationship Status Dates Dr. Sharif Ramos MD Primary Care Provider Active Start: October 15, 2024 End: October 15, 2024 Lashae Garner KEY HOLDER, KEY HOLDER-C Attending Provider Active Start: October 15, 2024 End: October 15, 2024 Team Status: Inactive Member Role/Relationship Status Dates Dr. Sharif Ramos MD Primary Care Provider Active Start: December 16, 2024 End: December 16, 2024 Dr. Sharif Ramos MD Attending Provider Active Start: December 16, 2024 End: December 16, 2024 Team Status: Active Member Role/Relationship Status Dates Dr. Sharif Ramos MD Primary Care Provider Active Start: January 07, 2025 Sharif CARRENO MD Attending Provider Active Start: January 07, 2025 Team Status: Inactive Member Role/Relationship Status Dates Dr. Sharif Ramos MD Primary Care Provider Active Start: January 15, 2025 End: January 15, 2025 Dr. Andrea Hawthorne MD Attending Provider Active S tart: January 15, 2025 End: January 15, 2025 Team Status: Active Member Role/Relationship Status Dates Dr. Sharif Ramos MD Primary Care Provider Active Start: January 21, 2025 Sharif CARRENO MD Attending Provider Active Start: January 21, 2025 Team Status: Inactive Member Role/Relationship Status Dates Dr. Sharif Ramos MD Primary Care Provider Active Start: January 07, 2025 End: January 07, 2025 Lashae Garner KEY HOLDER, KEY HOLDER-C Attending Provider Active Start: January 07, 2025 End: January 07, 2025 Team Status: Inactive Member Role/Relationship Status Dates Dr. Sharif Ramos MD Primary Care Provider Active Start: January 15, 2025 End: January 15, 2025 Dr. Andrea Hawthorne MD Attending Provider Active S tart: January 15, 2025 End: January 15, 2025 Team Status: Active Member Role/Relationship Status Dates Dr. Sharif Ramos MD Primary Care Provider Active Start: January 21, 2025 Sharif CARRENO MD Attending Provider Active Start: January 21, 2025 Goals (unrecognized section and content) Goals may [...] ized section and content) DATE CREATED AUTHOR 03/29/2025 [facility] FOR RECORDS PERTAINING TO PATIENTS WHO [...] BE BASED ON THE PRIMARY CLINICAL RECORDS. [facility]. provides no warranty or guarantee of the accuracy or completeness of information in this document.
== END ==
LOC: OLS.WHLEAS 05:00
PROVIDERS: PCP Internal Medicine; Visit Provider Internal Medicine
DX: E03.9 Hypothyroidism, unspecified (principal); I50.22 Chronic systolic (congestive) heart failure; E11.22 Type 2 diabetes mellitus with diabetic chronic kidney disease; N18.32 Chronic kidney disease, stage 3b
CPT/HCPCS: 36415; 84443

== ENCOUNTER → 2025-04-09 | Outpatient (REF) | payer MEDICARE, MEDICAID, SELFPAY ==
--- OUTSIDE RECORDS SUMMARY | 2025-04-09 03:38 | XMS RPT_ITS | CCD ---
Author Organization [facility] In[facility] Care Team Providers Care Bioanalyst Name Role Phone Dr. Grant Whitley Emergency Provider Dr. Viet Lovett Primary Care Provider Dr. Mehdi Crespo Admit Provider Unavailabl e Dr. Mehdi Crespo Other Provider Unavailabl e Dr. Anson Waite Attending Provider Dr. Anson Waite Other Provider Dr. Anson Waite Referring Provider Dr. Amol Yoder Attending Provider Dr. Stas Wlison Attending Provider Dr. Amol Yoder Other Provider [...] Dr. Evon Ramos MDbe Primary Care Provider Dr. Andrea Hawthorne MD Referring Provider [phone] Jamar Isabel Attending Provider [phone] Rachel ZAZUETA, Sharif Primary Care Provider [facility] jamie Hawthorne MD, Dr. Mendez Attending Provider [phone] Rachel ZAZUETA, Dr. Olguin Attending Provider [phone] Rachel ZAZUETA, Sharif Attending Provider Unavailmichael Ramos MD, Sharif Referring Provider Unavaila bailee Garner NP-CLashae Attending Provider Rachel ZAZUETA, Dr. Olguin Primary Care Provider Marine ZAZUETA, Dr. Mendez Attending Provider [phone] Marine ZAZUETA, Dr. Mendez Referring Provider [phone] Rachel ZAZUETA, Dr. Olguin Primary Care Provider Rachel ZAZUETA, Dr. Olguin Attending Provider [phone] Rachel ZAZUETA, Sharif Attending Provider Unavailmichael Hawthorne MD, Dr. Mendez Attending Provider [phone] Dr. Andrea Hawthorne MD Referring Provider [phone] Jamar Isabel Attending Provider [phone] Rachel ZAZUETA, Dr. Olguin Primary Care Provider Pascual ONEILL-CLashae Attending Provider Rachel ZAZUETA, Dr. Olguin Primary Care Physician Rachel ZAZUETA, Sharif Attending Physician Unavail able Rachel ZAZUETA, Dr. Olguin Attending Physician Pascual ONEILL-CLashae Attending Physician Marine ZAZUETA, Dr. Mendez Attending Physician Sharif Ramos Attending Unavailable Sharif Ramos Primary Care Unavailable Sharif Michel Attending Unavailabl e Oleghe OLS, Efewongbe Primary Care Unavailabl e Oleghe OLS, Efewongbe Attending Unavailabl e Oleghe OLS, Efewongbe Primary Care Unavailabl e Oleghe OLS, Efewongbe Attending Unavailabl e Oleghe OLS, Efewongbe Referring Unavailabl e Oleghe, Efewongbe Primary Care Unavailable Oleghe OLS, Efewongbe Attending Unavailabl e Oleghe, Efewongbe Primary Care Unavailable Oleghe OLS, Efewongbe Attending Unavailabl e Rachell, Viet Primary Care Unavailable Oleghe, Efewongbe Primary Care Unavailable Jamar Isabel Attending Unavailable Oleghe, Efewongbe Primary Care Unavailable Oleghe, Efewongbe Attending Unavailable Oleghe OLS, Efewongbe Primary Care Unavailabl e Oleghe, Efewongbe Attending Unavailable Oleghe OLS, Efewongbe Primary Care Unavailabl e Oleghe OLS, Efewongbe Referring Unavailabl e Marine, [place] Attending Unavailable Oleghe OLS, Efewongbe Attending Unavailabl [...] Attending Unavailable Oleghe, Efewongbe Primary Care Unavailable Lashae Garner Attending Unavailable Oleghe, Efewongbe Primary Care Unavailable Marine, [place] Attending Unavailable Oleghe, Efewongbe Primary Care Unavailable Oleghe, Efewongbe Attending Unavailable Oleghe, Efewongbe Primary Care Unavailable Catherine Garnerara Attending Unavailable Oleghe, Efewongbe Primary Care Unavailable Oleghe OLS, Efewongbe Attending Unavailabl e Oleghe, Efewongbe Primary Care Unavailable Oleghe OLS, Efewongbe Attending Unavailabl e Oleghe OLS, Efewongbe Attending Unavailabl e Oleghe, Efewongbe Primary Care Unavailable Oleghe OLS, Efewongbe Attending Unavailabl e Oleghe, Efewongbe Primary Care Unavailable Oleghe, Efewongbe Primary Care Unavailable Marine, [place] Attending Unavailable Marine, [place] Referring Unavailable Oleghe, Efewongbe Primary Care Unavailable Marine, Andrea Referring Unavailable Marine, [place] Attending Unavailable Oleghe, Efewongbe Primary Care Unavailable Jamar Isabel Attending Unavailable Oleghe, Efewongbe Attending Unavailable Oleghe OLS, Efewongbe Primary Care Unavailabl e Lashae Garner Attending Unavailable Oleghe OLS, Efewongbe Primary Care Unavailabl e Oleghe OLS, Efewongbe Primary Care Unavailabl e Marine, [place] Attending Unavailable Marine, [place] Referring Unavailable Marine, [place] Attending Unavailable Oleghe, Efewongbe Primary Care Unavailable Oleghe, Efewongbe Primary Care Unavailable Lashae Garner Attending Unavailable Oleghe OLS, Efewongbe Attending Unavailabl e Oleghe, Efewongbe Primary Care Unavailable Oleghe OLS, Efewongbe Attending Unavailabl e Viet Lovett Primary Care Unavailable Allergies Allergy Classification Reported Allergen(s) Allergy Type Date of Onset Reaction(s) Facility (13 sources) Jriyqpz-Tbb-Xev Reductase Inhibitor Propensity to adverse reactions 4 muscle aches [facility] (1 source) Eopcmvi-Qto-Wva Reductase Inhibitor Drug allergy (disorder) 5 [facility] Repository Medications Current Medications Medication Drug Class(es) Dates Sig (Normalized) Sig (Original) amiodarone hydrochloride 100 mg oral tablet (12 sources) Antiarrhythmic Start: 09-29-2023 take 1 tablet by mouth once daily aspirin 81 mg delayed release oral tablet (12 sources) Platelet Aggregation Inhibitor, Nonsteroidal Anti-inflammatory Drug Start: 09-29-2023 take 1 tablet by mouth once daily calcium carbonate 500 mg chewable tablet (12 sources) Start: 10-08-2023 take 1 tablet by mouth three times daily at mealtime cholecalciferol 0.025 mg oral tablet (12 sources) Vitamin D Start: 10-08-2023 take 1 tablet by mouth once daily dapagliflozin 10 mg oral tablet (20 sources) Sodium-Glucose Cotransporter 2 Inhibitor Start: 09-29-2023 End: 06-18-2024 take 1 tablet by mouth once daily in the morning docusate sodium 50 mg / sennosides, longterm 8.6 mg oral tablet (12 sources) Start: 10-08-2023 Food Supplemt, Lactose-Reduced (Ensure Plus High Protein) 0.08 gram-1.5 kcal/mL Liquid (12 sources) Start: 10-08-2023 Start: 10-08-2023 Food Supplemt, Lactose-Reduced (Ensure Plus [...] 2023 12:00am furosemide 40 mg oral tablet (12 sources) Loop Diuretic Start: 09-29-2023 take 1 tablet by jarret th once daily levothyroxine sodium 0.025 mg oral tablet (11 sources) l-Thyroxine Start: 06-18-2024 magnesium sulfate 100 mg oral capsule (12 sources) Start: 09-29-2023 take 4 capsules by mouth once daily Start: 09-29-2023 take 400 mg by mouth once kate y Magnesium Sulfate Active 400 MG PO DAILY September 29, 2023 12:00am menthol 0.0044 mg/mg / zinc oxide 0.206 mg/mg topical ointment (12 sources) Start: 10-08-2023 Start: 10-08-2023 Menthol-Zinc O xide (Calmoseptine) 0.44-20.6 % Ointment Active 1 NMA TOPICAL TWICE A DAY 0 0 October 08, 2023 12:00am Please contact the information source for Protocol details. Start: 10-08-2023 Menthol-Zinc O xide (Calmoseptine) 0.44-20.6 % Ointment Active 1 NMA TOPICAL TWICE A DAY October 08, 2023 12:00am Please contact the information source for Protocol details. Start: 10-08-2023 Menthol-Zinc O xide (Calmoseptine) 0.44-20.6 % Ointment Active 1 APPLIC TOPICAL TWICE A DAY 0 October 08, 2023 12:00am 24 hr metoprolol succinate 25 mg extended release oral tablet (20 sources) beta-Adrenergic John Start: 06-18-2024 take 1 tablet by mouth once daily Start: 09-29-2023 End: 06-18-2024 take 2 tablets [...] mg / valsartan 26 mg oral tablet (12 sources) Angiotensin 2 Receptor John Start: 09-29-2023 Completed/Discontinued Medications Medication Drug Class(es) Dates Sig [...] 2023 12:00am apixaban 5 mg oral tablet (12 sources) Factor Xa Inhibitor Start: 10-08-2023 End: 10-23-2023 take 2.5 mg by mouth twice daily Apixaban (Eliquis) 5 mg Tablet Discontinued 2.5 mg PO TWICE A DAY 0 October 08, 2023 12:00am October 22, 2023 12:00am October 23, 2023 12:05am X 3 weeks ciprofloxacin 250 mg oral tablet (11 sources) Quinolone Antimicrobial Start: 10-26-2023 End: 06-18-2024 take 1 tablet by mouth twice daily Ciprofloxacin Hcl (Cipro) 250 mg tablet Discontinued 250 mg PO TWICE A DAY October 26, 2023 12:00am June 18, 2024 2:17pm oxyCODONE hydrochloride 5 mg oral tablet (12 sources) Opioid Agonist Start: 10-08-2023 End: 06-18-2024 [...] failure] Onset: 01-16-2025 Chronic Acute cerebrovascular disease (11 sources) Cerebral hemorrhage; Translations: [Nontraumatic intracerebral hemorrhage, unspecified] 06-09-2024 Chronic Blindness and vision defects (11 sources) Legal blindness; Translations: [Legal blindness, as defined in [place]] 06-09-2024 Chronic Cardiac dysrhythmias (2 sources) Cardiac arrhythmia, unspecified; Translations: [Cardiac arrhythmia, unspecified] Onset: 03-11-2025 Chronic Chronic kidney disease (11 sources) Chronic kidney disease stage 3B ; Translations: [Stage 3b chronic kidney disease] 06-09-2024 Chronic Chronic kidney disease (2 sources) Chronic kidney disease; Translations: [Chronic kidney disease, stage 3b] Onset: 03-11-2025 Conduction disorders (20 sources) 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 ICM; NOT MRI compatible Congestive heart failure; nonhypertensive (19 sources) Congestive heart failure; Translations: [Heart failure, unspecified] Onset: 08-05-2024 06-09-2024 Chronic Coronary atherosclerosis and other heart disease (20 sources) Coronary arteriosclerosis; Translations: [Atherosclerotic heart disease of aug[place] coronary artery without angina pectoris] Onset: 07-08-2024 06-09-2024 Chronic Deficiency and other anemia (11 sources) Chronic anemia; Translations: [Anemia, unspecified] 06-09-2024 Episodic Deficiency and other anemia (1 source) Vitamin B12 deficiency anemia, unspecified; Translations: [Vitamin B12 deficiency anemia, unspecified] Onset: 01-16-2025 Episodic Deficiency and other anemia (1 source) Anemia, unspecified; Translations: [Anemia, unspecified] Onset: 01-16-2025 Episodic Diabetes mellitus with complications (2 sources) Type 2 diabetes mellitus with diabetic chronic kidney disease; Translations: [Type 2 diabetes mellitus with diabetic chronic kidney disease] Onset: 03-11-2025 Chronic Disorders of lipid metabolism (14 sources) Hyperlipidemia; Translations: [Hyperlipidemia, unspecified] Onset: 09-04-2024 06-09-2024 Chronic E Codes: Fall (15 sources) Falling injury; Translations: [Unspecified fall, initial encounter] 09-29-2023 Episodic Essential hypertension (14 sources) Essential hypertension; Translations: [Essential (primary) hypertension] Onset: 07-08-2024 06-09-2024 Chronic Fracture of neck of femur (hip) (18 sources) Closed fracture of neck of femur; Translations: [Fracture of unspecified part of neck of left femur, initial encounter for closed fracture] Onset: 01-19-2025 09-29-2023 Episodic Genitourinary symptoms and ill-defined conditions (11 sources) Incontinence; Translations: [Unspecified urinary incontinence] 06-09-2024 Chronic Malaise and fatigue (2 sources) Chronic fatigue, unspecified; Translations: [Chronic fatigue, unspecified] Onset: 12-19-2024 Chronic Malaise and fatigue (13 sources) Asthenia; Translations: [Other malaise] 10-04-2023 Episodic Open wounds of extremities (15 sources) Open wound of left elbow region; Translations: [Laceration without foreign body of left elbow, initial encounter] 09-29-2023 Episodic Other aftercare (11 sources) Follow-up status; Translations: [Encounter for other orthopedic aftercare] 06-09-2024 Episodic Other aftercare (1 source) Encounter for other orthopedic aftercare; Translations: [Encounter for other orthopedic aftercare] Onset: 01-19-2025 Episodic Other circulatory disease (13 sources) H/O: heart failure; Translations: [Personal history of other diseases of the circulatory system] 09-29-2023 Episodic Other circulatory disease (13 sources) History of cerebral hemorrhage; Translations: [Personal history of other diseases of the circulatory system] 09-29-2023 Episodic Other circulatory disease (2 sources) Personal history of other diseases of the circulatory system; Translations: [Personal history of other diseases of circulatory system] 10-10-2023 Episodic Other connective tissue disease (12 sources) History of repair of hip joint; [...] leg] Onset: 01-19-2025 Episodic Other endocrine disorders (11 sources) Secondary hyperaldosteronism; 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 Other nervous system disorders (11 sources) Impairment of balance; Translations: [Other abnormalities of gait and mobility] 06-09-2024 Episodic Other nutritional; endocrine; and metabolic disorders (1 source) Hypomagnesemia; Translations: [Hypomagnesemia] Onset: 02-18-2025 Chronic Coco-; endo-; and myocarditis; cardiomyopathy (except that caused by tuberculosis or sexually transmitted disease) (2 sources) Cardiomyopathy, unspecified; Translations: [Cardiomyopathy, unspecified] Onset: 03-11-2025 Chronic Superficial injury; contusion (15 sources) Contusion of pelvic region; Translations: [Contusion of lower back and pelvis, initial encounter] 09-29-2023 Episodic Thyroid disorders (2 sources) Hypothyroidism, unspecified; Translations: [Hypothyroidism, unspecified] Onset: 01-19-2025 Chronic Urinary tract infections (11 sources) Urinary tract infectious disease; Translations: [Urinary tract infection, site not specified] 06-09-2024 Episodic Past or Other Problems Problem Classification Problem Date Documented Date Episodic/Chronic Coronary atherosclerosis and other heart disease (14 sources) Stented coronary artery; Translations: [Presence of coronary angioplasty implant and graft] Onset: 06-07-2022 06-18-2024 Episodic Comment on above: PCI x3 LAD x2 left c ircumflex Fluid and electrolyte disorders (1 source) Hyperosmolality and hypernatremia; Translations: [Hyperosmolality and hypernatremia] Onset: 11-17-2024 Episodic Results Test Name Value Interpretation Reference Range Facility TSH DL <= 0.005 mIU/L QnOrde red By: Sharif Ramos on 02-18-2025 TSH Qn 4.180 uIU/mL 0.300-4.200 [facility] Magnesium measurement (mass/ volume)Ordered By: Sharif Ramos on 01-21-2025 Magnesium (Unsp spec) [Mass/Vol] 2.5 mg/dL High 1.5-2.2 [facility] Iron measurement (mass/mass) Ordered By: Sharif Ramos on 01-07-2025 Iron (Unsp spec) [Mass/Mass] 49 ug/dL Low 50-170 [facility] Magnesium measurement (mass/ volume)Ordered By: Sharif Ramos on 01-07-2025 Magnesium (Unsp spec) [Mass/Vol] 2.8 mg/dL High 1.5-2.2 [facility] No Panel InformationOrdered By: Sharif Ramos on 01-07-2025 Unsaturated Iron Binding Capacity 175 ug/dL Low 228-428 [facility] Comment on above: Hemolysis present, R esults could be affected. Serum or plasma ferritin brooke surement (mass/volume)Ordered By: Shraif Ramos on 01-07-2025 Ferritin [Mass/Vol] 151 ng/mL 22-378 [facility] Serum or plasma iron saturat ion measurement (mass fraction)Ordered By: Sharif Ramos on 01-07-2025 Iron saturation [Mass fraction] 21.9 % 13-59 [facility] Comment on above: Previous reported re sult: 22.0 %Edited by: NORMA on 01/07/25:0920 TSH DL <= 0.005 mIU/L QnOrde red By: Sharif Ramos on 01-07-2025 TSH Qn 6.650 uIU/mL High 0.300-4.200 [facility] Anion gap in Serum or Plasma Ordered By: Sharif Ramos on 12-31-2024 Anion gap [Moles/Vol] 10 mmol/L 5-15 [facility] BUN/creatinine ratioOrdered By: Sharif Ramos on 12-31-2024 Urea nitrogen/Creatinine [Mass ratio] 23.3 mg/mg High 10-20 [facility] Carbon dioxide, total [Moles /volume] in Central venous bloodOrdered By: Sharif Ramos on 12-31-2024 CO2 [Moles/Vol] 23.9 mmol/L 21.0-32.0 [facility] Chloride assayOrdered By: Cristina Ramos on 12-31-2024 Chloride [Moles/Vol] 106 mmol/L 98-108 [facility] Glomerular filtration rate ( GFR) estimation/1.73 sq m using serum, plasma, or whole bOrdered By: Sharif Ramos on 12-31-2024 GFR/1.73 sq M.predicted among non-blacks MDRD (S/P/Bld) [Vol rate/Area] 52 mL/min/{1.73_m2} Low >60 [facility] Comment on above: mL/min/1.73m2 CKD-EP I Creatinine Equation (2020) Magnesium measurement (mass/ volume)Ordered By: Sharif Ramos on 12-31-2024 Magnesium (Unsp spec) [Mass/Vol] 2.4 mg/dL High 1.5-2.2 [facility] Potassium measurement (mass/ volume)Ordered By: Sharif Ramos on 12-31-2024 Potassium (Unsp spec) [Mass/Vol] 4.0 mmol/L 3.3-5.1 [facility] Serum creatinine measurement (mass/volume)Ordered By: Sharif Ramos 12-31-2024 Creatinine [Mass/Vol] 1.04 mg/dL 0.70-1.20 [facility] Serum glucose measurement (m ass/volume)Ordered By: Sharif Ramos on 12-31-2024 Glucose [Mass/Vol] 103 mg/dL High 70-99 [facility] Serum or plasma calcium clarke urement (mass/volume)Ordered By: Sharif Ramos on 12-31-2024 Calcium [Mass/Vol] 8.9 mg/dL 7.6-11.0 [facility] Serum or plasma urea nitroge n measurement (mass/volume)Ordered By: Sharif Pereiraroxannagregg on 12-31-2024 Urea nitrogen [Mass/Vol] 24 mg/dL High 4-19 [facility] Sodium levelOrdered By: Snow shahram Randallroxannagregg on 12-31-2024 Sodium [Moles/Vol] 140 mmol/L 133-145 [facility] Absolute lymphocyte countOrd ered By: Snowzanemike Pereiraroxannagregg on 12-03-2024 Lymphocytes Auto (Unsp spec) [#/Vol] 1.35 10*3/uL 0.83-4.51 [facility] Absolute neutrophil countOrd ered By: Sharif Pereiraroxannagregg on 12-03-2024 Neutrophils (Bld) [#/Vol] 3.5 10*3/uL 2.0-7.7 [facility] Anion gap in Serum or Plasma Ordered By: Sharif Pereiraroxannagregg on 12-03-2024 Anion gap [Moles/Vol] 11 mmol/L 5-15 [facility] Automated lymphocyte count a s percentage of total leukocytesOrdered By: Sharif Pereiraroxannagregg on 12-03-2024 Lymphocytes/100 WBC Auto (Unsp spec) 23.2 % 19-41 [facility] BUN/creatinine ratioOrdered By: Sharif Pereiraroxannagregg on 12-03-2024 Urea nitrogen/Creatinine [Mass ratio] 29.1 mg/mg High 10-20 [facility] Basophil percentageOrdered B y: Snowzanemike Pereiraroxannagregg on 12-03-2024 Basophils/100 WBC (Bld) 0.3 % 0-1 [facility] Carbon dioxide, total [Moles /volume] in Central venous bloodOrdered By: Sharif Ramos on 12-03-2024 CO2 [Moles/Vol] 24.7 mmol/L 21.0-32.0 [facility] Chloride assayOrdered By: Cristina Ramos on 12-03-2024 Chloride [Moles/Vol] 105 mmol/L 98-108 [facility] Eosinophil percentageOrdered By: Sharif Ramos on 12-03-2024 Eosinophils/100 WBC (Bld) 7.0 % High 0-5 [facility] Erythrocyte distribution wid th ratioOrdered By: Sharif Ramos on 12-03-2024 Erythrocyte distribution width (RBC) [Ratio] 13.1 % 11.6-14.6 [facility] Erythrocyte distribution wid th standard deviationOrdered By: Sharif Ramos on 12-03-2024 Erythrocyte distribution width (RBC) [Ratio] 46.8 fl High 35.1-43.9 [facility] Glomerular filtration rate ( GFR) estimation/1.73 sq m using serum, plasma, or whole bOrdered By: [place] arielmike Ramos on 12-03-2024 GFR/1.73 sq M.predicted among non-blacks MDRD (S/P/Bld) [Vol rate/Area] 47 mL/min/{1.73_m2} Low >60 [facility] Comment on above: mL/min/1.73m2 CKD-EP I Creatinine Equation (2020) Hematocrit Auto (Bld) [Volum e fraction]Ordered By: Sharif Ramos on 12-03-2024 Hematocrit (Bld) [Volume fraction] 40.2 % 37-47 [facility] Hemoglobin measurementOrdere d By: Sharif Ramos on 12-03-2024 Hemoglobin (Bld) [Mass/Vol] 13.1 g/dL 12.0-15.0 [facility] Immature granulocytes/100 WB C Auto (Bld)Ordered By: Sharif Ramos on 12-03-2024 Immature granulocytes/100 WBC (Bld) 0.300 % 0.0-0.9 [facility] Comment on above: IG% - Immature Granu locytes (promyelocytes, myelocytes and metamyelocytes) > 1% indicates that a LEFT SHIFT is Present. MCV (mean corpuscular volume ) determinationOrdered By: Sharif Ramos on 12-03-2024 MCV (RBC) [Entitic vol] 96.9 fL 81-99 [facility] Mean corpuscular hemoglobin (MCH) determinationOrdered By: Sharif Ramos on 12-03-2024 MCH (RBC) [Entitic mass] 31.6 pg 27.0-32.0 [facility] Mean corpuscular hemoglobin concentration (MCHC) determinationOrdered By: Sharif Ramos on 12-03-2024 MCHC (RBC) [Mass/Vol] 32.6 g/dL 32-36 [facility] Mean platelet volume determi nationOrdered By: Sharif Ramos on 12-03-2024 Platelet mean volume (Bld) [Entitic vol] 10.4 fL 6.2-12.0 [facility] Monocyte percentageOrdered B y: Sharif Ramos on 12-03-2024 Monocytes/100 WBC (Bld) 9.6 % 0-10 [facility] Neutrophil percentageOrdered By: Sharif Ramos on 12-03-2024 Neutrophils/100 WBC (Bld) 59.6 % 47-70 [facility] Nucleated red blood cell per centageOrdered By: Sharif Ramos on 12-03-2024 Nucleated RBC/100 WBC (Bld) [Ratio] 0 % 0-5 [facility] Platelet countOrdered By: Cristina karsonshahram Ramos on 12-03-2024 Platelets (Bld) [#/Vol] 317 10*3/uL 150-450 [facility] Potassium measurement (mass/ volume)Ordered By: Sharif Ramos on 12-03-2024 Potassium (Unsp spec) [Mass/Vol] 4.0 mmol/L 3.3-5.1 [facility] RBC Auto (Bld) [#/Vol]Ordere d By: Sharif Ramos on 12-03-2024 RBC (Bld) [#/Vol] 4.15 10*6/uL Low 4.2-5.4 [facility] Serum creatinine measurement (mass/volume)Ordered By: Sharif Ramos on 12-03-2024 Creatinine [Mass/Vol] 1.13 mg/dL 0.70-1.20 [facility] Serum glucose measurement (m ass/volume)Ordered By: Sharif Ramos on 12-03-2024 Glucose [Mass/Vol] 102 mg/dL High 70-99 [facility] Serum or plasma calcium clarke urement (mass/volume)Ordered By: Sharif Ramos on 12-03-2024 Calcium [Mass/Vol] 9.1 mg/dL 7.6-11.0 [facility] Serum or plasma urea nitroge n measurement (mass/volume)Ordered By: Sharif Ramos on 12-03-2024 Urea nitrogen [Mass/Vol] 33 mg/dL High 4-19 [facility] Sodium levelOrdered By: Snow Ramos on 12-03-2024 Sodium [Moles/Vol] 141 mmol/L 133-145 [facility] White blood cell (WBC) count Ordered By: Sharif Ramos on 12-03-2024 WBC (Bld) [#/Vol] 5.8 10*3/uL 4.4-11.0 [facility] Sodium levelOrdered By: Snow Ramos on 11-05-2024 Sodium [Moles/Vol] 140 mmol/L 133-145 [facility] Magnesium measurement (mass/ volume)Ordered By: Sharif Ramos on 10-08-2024 Magnesium (Unsp spec) [Mass/Vol] 2.2 mg/dL 1.5-2.2 [facility] TSH DL <= 0.005 mIU/L QnOrde red By: Sharif Ramos on 10-08-2024 TSH Qn 1.270 uIU/mL 0.300-4.200 [facility] Absolute lymphocyte countOrd ered By: Sharif Ramos on 08-13-2024 Lymphocytes Auto (Unsp spec) [#/Vol] 1.27 10*3/uL 0.83-4.51 [facility] Absolute neutrophil countOrd ered By: Sharif Ramos on 08-13-2024 Neutrophils (Bld) [#/Vol] 2.4 10*3/uL 2.0-7.7 [facility] Anion gap in Serum or Plasma Ordered By: Sharif Ramos on 08-13-2024 Anion gap [Moles/Vol] 12 mmol/L 5-15 [facility] Automated lymphocyte count a s percentage of total leukocytesOrdered By: Sharif Ramos on 08-13-2024 Lymphocytes/100 WBC Auto (Unsp spec) 29.1 % 19-41 [facility] BUN/creatinine ratioOrdered By: Sharif Ramos on 08-13-2024 Urea nitrogen/Creatinine [Mass ratio] 27.5 mg/mg High 10-20 [facility] Basophil percentageOrdered B y: Sharif Ramos on 08-13-2024 Basophils/100 WBC (Bld) 0.5 % 0-1 [facility] Bilirubin Test strip Ql (U)O rdered By: Sharif Ramos on 08-13-2024 Bilirubin Ql (U) Negative Negative [facility] Bilirubin, totalOrdered By: [place] arielmike Ramos on 08-13-2024 Bilirubin [Mass/Vol] 0.41 mg/dL 0.00-1.30 [facility] Carbon dioxide, total [Moles /volume] in Central venous bloodOrdered By: Sharif Ramos on 08-13-2024 CO2 [Moles/Vol] 23.4 mmol/L 21.0-32.0 [facility] Chloride assayOrdered By: Cristina Ramos on 08-13-2024 Chloride [Moles/Vol] 117 mmol/L High 98-108 [facility] Eosinophil percentageOrdered By: Sharif Ramos on 08-13-2024 Eosinophils/100 WBC (Bld) 7.8 % High 0-5 [facility] Erythrocyte distribution wid th (RBC) [Ratio]Ordered By: Sharif Ramos on 08-13-2024 Erythrocyte distribution width (RBC) [Entitic vol] 45.1 fL High 35.1-43.9 [facility] Erythrocyte distribution wid th ratioOrdered By: Sharif Ramos on 08-13-2024 Erythrocyte distribution width (RBC) [Ratio] 12.8 % 11.6-14.6 [facility] Erythrocyte distribution wid th standard deviationOrdered By: Sharif Ramos on 08-13-2024 Erythrocyte distribution width (RBC) [Ratio] 45.1 fl High 35.1-43.9 [facility] GFR/1.73 sq M.predicted lisbet g non-blacks MDRD (S/P/Bld) [Vol rate/Area]Ordered By: Sharif Ramos on 08-13-2024 Estimated GFR (MDRD) Non-Af Amer 52 Low >60 [facility] Comment on above: mL/min/1.73m2 CKD-EP I Creatinine Equation (2020) Glomerular filtration rate ( GFR) estimation/1.73 sq m using serum, plasma, or whole bOrdered By: Sharif Ramos on 08-13-2024 GFR/1.73 sq M.predicted among non-blacks MDRD (S/P/Bld) [Vol rate/Area] 52 mL/min/{1.73_m2} Low >60 [facility] Comment on above: mL/min/1.73m2 CKD-EP I Creatinine Equation (2020) Glucose Ql (U)Ordered By: Cristina Ramos on 08-13-2024 Glucose (U) [Mass/Vol] 1000 mg/dL High Normal [facility] Hematocrit Auto (Bld) [Volum e fraction]Ordered By: Sharif Ramos on 08-13-2024 Hematocrit (Bld) [Volume fraction] 35.9 % Low 37-47 [facility] Hemoglobin measurementOrdere d By: Sharif Ramos on 08-13-2024 Hemoglobin (Bld) [Mass/Vol] 11.8 g/dL Low 12.0-15.0 [facility] Immature granulocytes/100 WB C Auto (Bld)Ordered By: Sharif Ramos on 08-13-2024 Immature granulocytes/100 WBC (Bld) 0.200 % 0.0-0.9 [facility] Comment on above: IG% - Immature Granu locytes (promyelocytes, myelocytes and metamyelocytes) > 1% indicates that a LEFT SHIFT is Present. Ketones Test strip Ql (U)Ord ered By: Sharif Ramos on 08-13-2024 Ketones Ql (U) Negative Negative [facility] Laboratory - Chemistry and C hemistry - challengeOrdered By: Sharif Ramos on 08-13-2024 AST [Catalytic activity/Vol] 16 U/L <32 [facility] Lymphocytes Auto (Unsp spec) [#/Vol]Ordered By: Sharif Ramos on 08-13-2024 Lymphocytes (Bld) [#/Vol] 1.27 10*3/uL 0.83-4.51 [facility] Lymphocytes/100 WBC Auto (Un sp spec)Ordered By: Sharif Ramos on 08-13-2024 Lymphocytes/100 WBC (Bld) 29.1 % 19-41 [facility] MCV (mean corpuscular volume ) determinationOrdered By: Sharif Ramos on 08-13-2024 MCV (RBC) [Entitic vol] 96.2 fL 81-99 [facility] Mean corpuscular hemoglobin (MCH) determinationOrdered By: Sharif Ramos on 08-13-2024 MCH (RBC) [Entitic mass] 31.6 pg 27.0-32.0 [facility] Mean corpuscular hemoglobin concentration (MCHC) determinationOrdered By: Sharfi Ramos on 08-13-2024 MCHC (RBC) [Mass/Vol] 32.9 g/dL 32-36 [facility] Mean platelet volume determi nationOrdered By: Sharif Ramos on 08-13-2024 Platelet mean volume (Bld) [Entitic vol] 10.2 fL 6.2-12.0 [facility] Monocyte percentageOrdered B y: Sharif Ramos on 08-13-2024 Monocytes/100 WBC (Bld) 8.5 % 0-10 [facility] Neutrophil percentageOrdered By: Sharif Ramos on 08-13-2024 Neutrophils/100 WBC (Bld) 53.9 % 47-70 [facility] Nitrite Test strip Ql (U)Ord ered By: Sharif Ramos on 08-13-2024 Nitrite Ql (U) Negative Negative [facility] Nucleated red blood cell per centageOrdered By: Sharif Ramos on 08-13-2024 Nucleated RBC/100 WBC (Bld) [Ratio] 0 % 0-5 [facility] Platelet countOrdered By: Cristina Ramos on 08-13-2024 Platelets (Bld) [#/Vol] 292 10*3/uL 150-450 [facility] Potassium (Unsp spec) [Mass/ Vol]Ordered By: Sharif Ramos on 08-13-2024 Potassium [Moles/Vol] 3.8 mmol/L 3.3-5.1 [facility] Potassium measurement (mass/ volume)Ordered By: Sharif Ramos on 08-13-2024 Potassium (Unsp spec) [Mass/Vol] 3.8 mmol/L 3.3-5.1 [facility] Protein Test strip Ql (U)Ord ered By: Sharif Ramos on 08-13-2024 Protein Ql (U) 15 mg/dl High Negative [facility] RBC Auto (Bld) [#/Vol]Ordere d By: Sharif Ramos on 08-13-2024 RBC (Bld) [#/Vol] 3.73 10*6/uL Low 4.2-5.4 [facility] Serum creatinine measurement (mass/volume)Ordered By: Sharif Ramos on 08-13-2024 Creatinine [Mass/Vol] 1.03 mg/dL 0.70-1.20 [facility] Serum globulin measurementOr dered By: Sharif Ramos on 08-13-2024 Globulin (S) [Mass/Vol] 2.3 g/dL 2.2-4.2 [facility] Serum glucose measurement (m ass/volume)Ordered By: Sharif Ramos on 08-13-2024 Glucose [Mass/Vol] 88 mg/dL 70-99 [facility] Serum or plasma alanine contreras otransferase (ALT) measurementOrdered By: Sharif Ramos on 08-13-2024 ALT [Catalytic activity/Vol] 8 U/L <35 [facility] Serum or plasma albumin clarke urement (mass/volume)Ordered By: Sharif Ramos on 08-13-2024 Albumin [Mass/Vol] 3.3 g/dL Low 3.4-4.8 [facility] Serum or plasma albumin/glob ulin mass ratioOrdered By: Sharif Ramos on 08-13-2024 Albumin/Globulin [Mass ratio] 1.4 {ratio} 0.9-2.4 [facility] Serum or plasma alkaline timi sphatase measurementOrdered By: Sharif Ramos on 08-13-2024 ALP [Catalytic activity/Vol] 64 U/L 35-104 [facility] Serum or plasma calcium clarke urement (mass/volume)Ordered By: Sharif Ramso on 08-13-2024 Calcium [Mass/Vol] 8.7 mg/dL 7.6-11.0 [facility] Serum or plasma urea nitroge n measurement (mass/volume)Ordered By: Sharif Ramos on 08-13-2024 Urea nitrogen [Mass/Vol] 28 mg/dL High 4-19 [facility] Sodium levelOrdered By: Snow Ramos on 08-13-2024 Sodium [Moles/Vol] 153 mmol/L High 133-145 [facility] Total proteinOrdered By: Milton Ramos on 08-13-2024 Protein [Mass/Vol] 5.6 g/dL Low 5.9-8.4 [facility] Urine blood detectionOrdered By: Sharif Ramos on 08-13-2024 Urine Occult Blood Negative Negative [facility] Urine clarityOrdered By: Milton Ramos on 08-13-2024 Clarity (U) Sl. Cloudy Clear [facility] Urine color determinationOrd ered By: Sharif Ramos on 08-13-2024 Color (U) Yellow Yellow [facility] Urine cultureOrdered By: Milton Ramos on 08-13-2024 Bacteria identified Cx Nom (U) Positive Abnormal [facility] Urine glucose detectionOrder ed By: Sharif Ramos on 08-13-2024 Glucose Ql (U) 1000 mg/dl High Normal [facility] Urine leukocyte esterase det ection by dipstickOrdered By: Sharif Ramos on 08-13-2024 Leukocyte esterase Test strip Ql (U) Negative Negative [facility] Urine pHOrdered By: Mary Ramos on 08-13-2024 pH (U) 6.0 [pH] 5.0 - 8.0 [facility] Urine specific gravity measu rementOrdered By: Sharif Ramos on 08-13-2024 Specific gravity (U) [Rel density] 1.020 1.002-1.030 [facility] Urine urobilinogen measureme ntOrdered By: Sharif Ramos on 08-13-2024 Urobilinogen Ql (U) Normal mg/dl Normal [facility] Urobilinogen Ql (U)Ordered B y: Sharif Ramos on 08-13-2024 Urine Urobilinogen Normal mg/dl Normal [facility] White blood cell (WBC) count Ordered By: Sharif Ramos on 08-13-2024 WBC (Bld) [#/Vol] 4.4 10*3/uL 4.4-11.0 [facility] Pacemaker Checkon 07-09-2024 Pacemaker Check [facility] [address] [place] [address]. [address] [place] [address] Pacemaker Check Date of Service: 07/09/24 1411 MR#: [id number] Acct: [id number] Name: TAPANABNERSHERRIE Gary Rep #: [id number] : 1935 From: Abby Butts Age/Sex: 89/F Location: [facility] Status: Signed Billing Codes ICD Device Billin ICD Dev Prog Eval, Multi Assessment and Plan Assessment and Plan (1) Ischemic cardiomyopathy: Status: Acute (2) ICD (implantable cardioverter-defibrill ator) in place: Status: Acute (3) CHF (congestive heart failure): Status: Acute 07/09/24 1413 Date Abby Jacksonignscar Signature: Date (if applicable) CC: Normal [facility] Direct serum free thyroxine (FT4) measurementOrdered By: Sharif Ramos on 06-26-2024 Free T4 [Mass/Vol] 1.34 ng/dL 0.76-1.46 [facility] TSH QnOrdered By: Sharif Ramos on 06-26-2024 Thyroid Stimulating Hormone (TSH) 2.090 uIU/mL 0.358-3.740 [facility] 12 Lead EKG performed by [facility] on 06-18-2024 12 Lead EKG performed by [facility] [address] [place] [address] 12 Lead EKG performed by [facility] 06/18/24 1250 MR#: [id number] Acct: [id number] Name: SHERRIE LOZANO Rep #: [id number] : 1935 89 From: Andrea Hawthorne MD Attending Dr: Dr. Andrea Hawthorne MD Status: DEP A MB Ordering Dr: Andrea Hawthorne MD Date: 06/18/24 Location: [facility] Sex: F C Admitted: BMS/12 Lead EKG performed by [facility] ECG Report Interpretation ----Electronic ventricular pacemaker Pacemaker ECG, No further analysis Electronically signed on 06/23/2024 at 08:30 by Andrea Hawthorne [employer] Software Version [id number] 06/23/24 0833 Date Andrea Hawthorne MD CC: Sharif Ramos MD Date Dictated: 06/18/241249 Date Transcribed: 06/18/241249 [employer]: [place] Signed Normal [facility] Cardiology Visit Reporton Cardiology Visit Report [facility] [address] [place] [address] OFFICE VISIT Date of Service: 06/18/24 MR#: [id number] Acct: [id number] Name: SHERRIE LOZANO Rep #: [id number] : 1935 Provider: Dr. Andrea Hawthorne MD Age/Sex: 89/F [place] [facility] Status: Signed HPI HPI History of Present Illness Details: Pleasant 89-year-old lady who has recently relocated from [facility] here. She has a history of [...] Method room air Intake Visit Reasons: ESTABLISH (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 Normal [facility] Absolute neutrophil countOrd ered By: Sharif Ramos on 06-06-2024 Neutrophils (Bld) [#/Vol] 3.6 10*3/uL 2.0-7.7 [facility] Basophil percentageOrdered B y: Sharif Ramos on 06-06-2024 Basophils/100 WBC (Bld) 0.5 % 0-1 [facility] Blood urea nitrogen (BUN)/cr eatinine ratioOrdered By: Sharif Ramos on 06-06-2024 Urea nitrogen/Creatinine [Mass ratio] 26.6 mg/mg High 10-20 [facility] Carbon dioxide measurementOr dered By: Sharif Ramos on 06-06-2024 CO2 [Moles/Vol] 25.0 mmol/L 21.0-32.0 [facility] Chloride measurementOrdered By: Sharif Ramos on 06-06-2024 Chloride [Moles/Vol] 110 mmol/L High 98-107 [facility] Eosinophil percentageOrdered By: Sharif Ramos on 06-06-2024 Eosinophils/100 WBC (Bld) 6.2 % High 0-5 [facility] Erythrocyte distribution wid th (RBC) [Ratio]Ordered By: Sharif Ramos on 06-06-2024 Erythrocyte distribution width (RBC) [Entitic vol] 48.0 fL High 35.1-43.9 [facility] Erythrocyte distribution wid th ratioOrdered By: Sharif Ramos on 06-06-2024 Erythrocyte distribution width (RBC) [Ratio] 13.2 % 11.6-14.6 [facility] Estimated glomerular filtrat ion rate (GFR) AmericanOrdered By: Sharif Ramos on 06-06-2024 Estimated GFR (MDRD) Amer 61 mL/min >60 [facility] Comment on above: GFR Calc Glomerular filtration rate ( GFR) estimationOrdered By: Sharif Ramos on 06-06-2024 Estimated GFR (MDRD) Non-Af Amer 50 mL/min Low >60 [facility] Comment on above: Non- GFR Calc Glucose measurementOrdered B y: Sharif Ramos on 06-06-2024 Glucose [Mass/Vol] 98 mg/dL 74-106 [facility] Hematocrit Auto (Bld) [Volum e fraction]Ordered By: Sharif Ramos on 06-06-2024 Hematocrit (Bld) [Volume fraction] 39.7 % 37-47 [facility] Hemoglobin measurementOrdere d By: Sharif Ramos on 06-06-2024 Hemoglobin (Bld) [Mass/Vol] 12.9 g/dL 12.0-15.0 [facility] Immature granulocytes/100 WB C Auto (Bld)Ordered By: Sharif Ramos on 06-06-2024 Immature granulocytes/100 WBC (Bld) 0.300 % 0.0-0.9 [facility] Comment on above: IG% - Immature Granu locytes (promyelocytes, myelocytes and metamyelocytes) > 1% indicates that a LEFT SHIFT is Present. Lymphocytes Auto (Unsp spec) [#/Vol]Ordered By: Sharif Ramos on 06-06-2024 Lymphocytes (Bld) [#/Vol] 1.31 10*3/uL 0.83-4.51 [facility] Lymphocytes/100 WBC Auto (Un sp spec)Ordered By: Sharif Ramos on 06-06-2024 Lymphocytes/100 WBC (Bld) 22.4 % 19-41 [facility] MCV (mean corpuscular volume ) determinationOrdered By: Sharif Ramos on 06-06-2024 MCV (RBC) [Entitic vol] 99.0 fL 81-99 [facility] Mean corpuscular hemoglobin (MCH) determinationOrdered By: Sharif Ramos on 06-06-2024 MCH (RBC) [Entitic mass] 32.2 pg High 27.0-32.0 [facility] Mean corpuscular hemoglobin concentration (MCHC) determinationOrdered By: Sharif Ramos on 06-06-2024 MCHC (RBC) [Mass/Vol] 32.5 g/dL 32-36 [facility] Mean platelet volume determi nationOrdered By: Sharif Ramos on 06-06-2024 Platelet mean volume (Bld) [Entitic vol] 10.4 fL 6.2-12.0 [facility] Monocyte percentageOrdered B y: Sharif Ramos on 06-06-2024 Monocytes/100 WBC (Bld) 9.2 % 0-10 [facility] Neutrophil percentageOrdered By: Sharif Ramos on 06-06-2024 Neutrophils/100 WBC (Bld) 61.4 % 47-70 [facility] Nucleated red blood cell per centageOrdered By: Sharif Ramos on 06-06-2024 Nucleated RBC/100 WBC (Bld) [Ratio] 0 % 0-5 [facility] Platelet countOrdered By: Cristina Ramos on 06-06-2024 Platelets (Bld) [#/Vol] 328 10*3/uL 150-450 [facility] Potassium measurementOrdered By: Sharif Ramos on 06-06-2024 Potassium [Moles/Vol] 4.1 mmol/L 3.5-5.1 [facility] RBC Auto (Bld) [#/Vol]Ordere d By: Sharif Ramos on 06-06-2024 RBC (Bld) [#/Vol] 4.01 10*6/uL Low 4.2-5.4 [facility] Serum anion gap measurementO rdered By: Sharif Ramos on 06-06-2024 Anion gap [Moles/Vol] 7 mmol/L 5-15 [facility] Serum or plasma calcium clarke urement (mass/volume)Ordered By: Sharif Ramos on 06-06-2024 Calcium [Mass/Vol] 9.2 mg/dL 8.5-10.1 [facility] Serum or plasma creatinine m easurement (mass/volume)Ordered By: Sharif Ramos on 06-06-2024 Creatinine [Mass/Vol] 1.09 mg/dL High 0.55-1.02 [facility] Comment on above: The validity of the calculated GFR & GFRAA in patients over 70 years has not been determined. Clinical correlation is essential. Serum or plasma urea nitroge n measurement (mass/volume)Ordered By: Sharif Ramos on 06-06-2024 Urea nitrogen [Mass/Vol] 29 mg/dL High 7-18 [facility] Sodium levelOrdered By: Snow Ramos on 06-06-2024 Sodium [Moles/Vol] 142 mmol/L 136-145 [facility] White blood cell (WBC) count Ordered By: Sharif Ramos on 06-06-2024 WBC (Bld) [#/Vol] 5.8 10*3/uL 4.4-11.0 [facility] Direct serum free thyroxine (FT4) measurementOrdered By: Sharif Ramos on 05-15-2024 Free T4 [Mass/Vol] 1.35 ng/dL 0.76-1.46 [facility] TSH QnOrdered By: Sharif Ramos on 05-15-2024 Thyroid Stimulating Hormone (TSH) 2.920 uIU/mL 0.358-3.740 [facility] Absolute neutrophil countOrd ered By: Sharif Ramos on 05-07-2024 Neutrophils (Bld) [#/Vol] 3.2 10*3/uL 2.0-7.7 [facility] Basophil percentageOrdered B y: Sharif Ramos on 05-07-2024 Basophils/100 WBC (Bld) 0.4 % 0-1 [facility] Blood urea nitrogen (BUN)/cr eatinine ratioOrdered By: Sharif Ramos on 05-07-2024 Urea nitrogen/Creatinine [Mass ratio] 30.2 mg/mg High 10-20 [facility] Carbon dioxide measurementOr dered By: Sharif Ramos on 05-07-2024 CO2 [Moles/Vol] 26.0 mmol/L 21.0-32.0 [facility] Chloride measurementOrdered By: Sharif Ramos on 05-07-2024 Chloride [Moles/Vol] 113 mmol/L High 98-107 [facility] Eosinophil percentageOrdered By: Sharif Ramos on 05-07-2024 Eosinophils/100 WBC (Bld) 6.8 % High 0-5 [facility] Erythrocyte distribution wid th (RBC) [Ratio]Ordered By: Sharif Ramos on 05-07-2024 Erythrocyte distribution width (RBC) [Entitic vol] 49.6 fL High 35.1-43.9 [facility] Erythrocyte distribution wid th ratioOrdered By: Sharif Ramos on 05-07-2024 Erythrocyte distribution width (RBC) [Ratio] 13.6 % 11.6-14.6 [facility] Estimated glomerular filtrat ion rate (GFR) AmericanOrdered By: Sharif Ramos on 05-07-2024 Estimated GFR (MDRD) Amer 57 mL/min Low >60 [facility] Comment on above: GFR Calc Glomerular filtration rate ( GFR) estimationOrdered By: Sharif Ramos on 05-07-2024 Estimated GFR (MDRD) Non-Af Amer 47 mL/min Low >60 [facility] Comment on above: Non- GFR Calc Glucose measurementOrdered B y: Sharif Ramos on 05-07-2024 Glucose [Mass/Vol] 110 mg/dL High 74-106 [facility] Comment on above: Fasting Glucose resu lt from 100 to 125 mg/dL suggests IMPAIRED HOMEOSTASIS per A.D.A. criteria. Hematocrit Auto (Bld) [Volum e fraction]Ordered By: Sharif Ramos on 05-07-2024 Hematocrit (Bld) [Volume fraction] 34.6 % Low 37-47 [facility] Hemoglobin measurementOrdere d By: Sharif Ramos on 05-07-2024 Hemoglobin (Bld) [Mass/Vol] 11.5 g/dL Low 12.0-15.0 [facility] Immature granulocytes/100 WB C Auto (Bld)Ordered By: Sharif Ramos on 05-07-2024 Immature granulocytes/100 WBC (Bld) 0.400 % 0.0-0.9 [facility] Comment on above: IG% - Immature Granu locytes (promyelocytes, myelocytes and metamyelocytes) > 1% indicates that a LEFT SHIFT is Present. Lymphocytes Auto (Unsp spec) [#/Vol]Ordered By: Sharif Ramos on 05-07-2024 Lymphocytes (Bld) [#/Vol] 1.10 10*3/uL 0.83-4.51 [facility] Lymphocytes/100 WBC Auto (Un sp spec)Ordered By: Sharif Ramos on 05-07-2024 Lymphocytes/100 WBC (Bld) 21.5 % 19-41 [facility] MCV (mean corpuscular volume ) determinationOrdered By: Sharif Ramos on 05-07-2024 MCV (RBC) [Entitic vol] 98.6 fL 81-99 [facility] Mean corpuscular hemoglobin (MCH) determinationOrdered By: Sharif Ramos on 05-07-2024 MCH (RBC) [Entitic mass] 32.8 pg High 27.0-32.0 [facility] Mean corpuscular hemoglobin concentration (MCHC) determinationOrdered By: Sharif Ramos on 05-07-2024 MCHC (RBC) [Mass/Vol] 33.2 g/dL 32-36 [facility] Mean platelet volume determi nationOrdered By: Sharif Ramos on 05-07-2024 Platelet mean volume (Bld) [Entitic vol] 10.6 fL 6.2-12.0 [facility] Monocyte percentageOrdered B y: Sharif Ramos on 05-07-2024 Monocytes/100 WBC (Bld) 9.2 % 0-10 [facility] Neutrophil percentageOrdered By: Sharif Ramos on 05-07-2024 Neutrophils/100 WBC (Bld) 61.7 % 47-70 [facility] Nucleated red blood cell per centageOrdered By: Sharif Pereiraroxannagregg on 05-07-2024 Nucleated RBC/100 WBC (Bld) [Ratio] 0 % 0-5 [facility] Platelet countOrdered By: Cristina lammike Ramos on 05-07-2024 Platelets (Bld) [#/Vol] 303 10*3/uL 150-450 [facility] Potassium measurementOrdered By: Sharif Ramos on 05-07-2024 Potassium [Moles/Vol] 4.1 mmol/L 3.5-5.1 [facility] RBC Auto (Bld) [#/Vol]Ordere d By: Sharif Ramos on 05-07-2024 RBC (Bld) [#/Vol] 3.51 10*6/uL Low 4.2-5.4 [facility] Serum anion gap measurementO rdered By: Sharif Ramos on 05-07-2024 Anion gap [Moles/Vol] 4 mmol/L Low 5-15 [facility] Serum or plasma calcium clarke urement (mass/volume)Ordered By: Sharif Ramos on 05-07-2024 Calcium [Mass/Vol] 9.0 mg/dL 8.5-10.1 [facility] Serum or plasma creatinine m easurement (mass/volume)Ordered By: Sharif Ramos on 05-07-2024 Creatinine [Mass/Vol] 1.16 mg/dL High 0.55-1.02 [facility] Comment on above: The validity of the calculated GFR & GFRAA in patients over 70 years has not been determined. Clinical correlation is essential. Serum or plasma urea nitroge n measurement (mass/volume)Ordered By: Sharif Ramos on 05-07-2024 Urea nitrogen [Mass/Vol] 35 mg/dL High 7-18 [facility] Sodium levelOrdered By: Snow shahram Rachel on 05-07-2024 Sodium [Moles/Vol] 143 mmol/L 136-145 [facility] White blood cell (WBC) count Ordered By: Sharif Ramos on 05-07-2024 WBC (Bld) [#/Vol] 5.1 10*3/uL 4.4-11.0 [facility] COVID-19 virus antigen assay Ordered By: Tammi Frost on 10-10-2023 SARS-CoV-2 (COVID-19) Ag IA.rapid Ql (Resp) [facility] Basophil percentageOrdered B y: Tammi Frost on 10-09-2023 Chloride [Moles/Vol] 109 mmol/L 98-107 [facility] Glucose [Mass/Vol] 100 mg/dL 74-106 [facility] Comment on above: Fasting Glucose resu lt from 100 to 125 mg/dL suggests IMPAIRED HOMEOSTASIS per A.D.A. criteria. Hemoglobin (Bld) [Mass/Vol] 10.7 g/dL 12.0-15.0 [facility] Potassium [Moles/Vol] 4.4 mmol/L 3.5-5.1 [facility] Sodium [Moles/Vol] 139 mmol/L 136-145 [facility] WBC (Bld) [#/Vol] 8.3 10*3/uL 4.4-11.0 [facility] Determination of erythrocyte mean corpuscular volume (MCV)Ordered By: Tammi Frost on 10-09-2023 MCV (RBC) [Entitic vol] 95.8 fL 81-99 [facility] Erythrocyte distribution wid th ratioOrdered By: Tammi Frost on 10-09-2023 Erythrocyte distribution width (RBC) [Ratio] 16.0 % 11.6-14.6 [facility] Erythrocyte distribution wid th standard deviationOrdered By: Tammi Frost on 10-09-2023 Erythrocyte distribution width (RBC) [Entitic vol] 57.1 fL 35.1-43.9 [facility] Hematocrit Auto (Bld) [Volum e fraction]Ordered By: Tammi Frost on 10-09-2023 Hematocrit (Bld) [Volume fraction] 33.9 % 37-47 [facility] - Chemistry and C hemistry - challengeOrdered By: Tammi Frost on 10-09-2023 CO2 [Moles/Vol] 27.0 mmol/L 21.0-32.0 [facility] Urea nitrogen/Creatinine [Mass ratio] 40.4 mg/mg 10-20 [facility] - Hematology and Cell countsOrdered By: Tammi Frost on 10-09-2023 MCH (RBC) [Entitic mass] 30.2 pg 27.0-32.0 [facility] MCHC (RBC) [Mass/Vol] 31.6 g/dL 32-36 [facility] Platelet mean volume (Bld) [Entitic vol] 9.9 fL 6.2-12.0 [facility] Platelets (Bld) [#/Vol] 450 10*3/uL 150-450 [facility] No Panel InformationOrdered By: Tammi Frost on 10-09-2023 Estimated Creatinine Clearance Calc 26.00 ml/min [facility] Estimated GFR (MDRD) Amer 70 mL/min >60 [facility] Comment on above: GFR Calc Estimated GFR (MDRD) Non-Af Amer 58 mL/min >60 [facility] Comment on above: Non- GFR Calc RBC Auto (Bld) [#/Vol]Ordere d By: Tammi Frost on 10-09-2023 RBC (Bld) [#/Vol] 3.54 10*6/uL 4.2-5.4 [facility] Serum or plasma calcium clarke urement (mass/volume)Ordered By: Tammi Frost on 10-09-2023 Calcium [Mass/Vol] 8.7 mg/dL 8.5-10.1 [facility] Serum or plasma creatinine m easurement (mass/volume)Ordered By: Tammi Frost on 10-09-2023 Creatinine [Mass/Vol] 0.97 mg/dL 0.55-1.02 [facility] Comment on above: The validity of the calculated GFR & GFRAA in patients over 70 years has not been determined. Clinical correlation is essential. Serum or plasma urea nitroge n measurement (mass/volume)Ordered By: Tammi Frost on 10-09-2023 Urea nitrogen [Mass/Vol] 39 mg/dL 7-18 [facility] Thin prep Papanicolaou smear with manual screeningOrdered By: Tammi Frost on 10-09-2023 Thin prep Papanicolaou smear with manual screening 3 5-15 [facility] Absolute lymphocyte countOrd ered By: Anson Waite on 10-02-2023 Lymphocytes Auto (Unsp spec) [#/Vol] 0.69 10*3/uL 0.83-4.51 [facility] Automated lymphocyte count a s percentage of total leukocytesOrdered By: Anson Waite on 10-02-2023 Lymphocytes/100 WBC Auto (Unsp spec) 7.3 % 19-41 [facility] Basophil percentageOrdered B y: Anson Waite on 10-02-2023 Basophils/100 WBC (Bld) 0.2 % 0-1 [facility] Eosinophils/100 WBC (Bld) 0.6 % 0-5 [facility] Monocytes/100 WBC (Bld) 7.4 % 0-10 [facility] Neutrophils (Bld) [#/Vol] 8.0 10*3/uL 2.0-7.7 [facility] Neutrophils/100 WBC (Bld) 84.0 % 47-70 [facility] Immature granulocytes/100 WB C Auto (Bld)Ordered By: Anson Waite on 10-02-2023 Immature granulocytes/100 WBC (Bld) 0.500 % 0.0-0.9 [facility] Comment on above: IG% - Immature Granu locytes (promyelocytes, myelocytes and metamyelocytes) > 1% indicates that a LEFT SHIFT is Present. Laboratory - Hematology and Cell countsOrdered By: Anson Waite on 10-02-2023 Nucleated RBC/100 WBC (Bld) [Ratio] 0 % 0-5 [facility] Whole blood hemoglobin A1c/t otal hemoglobin ratio (mass fraction)Ordered By: Anosn Waite on 10-02-2023 HbA1c (Bld) [Mass fraction] 5.4 % 3.8-5.6 [facility] Comment on above: Normal < 5.7 % Predi abetic 5.7 - 6.4 % Diabetic >or= 6.5 % Please note range changes. Basophil percentageOrdered B y: Mehdi Cabrera on 09-30-2023 Basophil percentage 3.8 mg/dL 2.5-4.9 [facility] Bilirubin [Mass/Vol] 0.60 mg/dL 0.20-1.00 [facility] Comment on above: For patients on eltr ombopag therapy, use of Dimension [place] TBIL is not recommended. Protein [Mass/Vol] 6.1 g/dL 6.4-8.2 [facility] Laboratory - Chemistry and C hemistry - challengeOrdered By: Mehdi Cabrera on 09-30-2023 Albumin/Globulin [Mass ratio] 0.9 {ratio} 0.9-2.4 [facility] ALP [Catalytic activity/Vol] 68 U/L 45-117 [facility] ALT [Catalytic activity/Vol] 23 U/L 13-56 [facility] Globulin (S) [Mass/Vol] 3.2 g/dL 2.2-4.2 [facility] Magnesium [Mass/Vol] 2.9 mg/dL 1.6-2.6 [facility] Thin prep Papanicolaou smear with manual screeningOrdered By: Anson Waite on 09-30-2023 Thin prep Papanicolaou smear with manual screening 92 mg/dL 74-106 [facility] Comment on above: MANAGEMENT OF PATIEN T CARE PER NURSING PROTOCOL Thin prep Papanicolaou smear with manual screeningOrdered By: Mehdi Cabrera on 09-30-2023 Thin prep Papanicolaou smear with manual screening 2.9 g/dL 3.2-5.0 [facility] Thin prep Papanicolaou smear with manual screening 20 U/L 15-37 [facility] Absolute lymphocyte countOrd ered By: Grant Whitley on 09-29-2023 Lymphocytes Auto (Unsp spec) [#/Vol] 1.31 10*3/uL 0.83-4.51 [facility] Automated lymphocyte count a s percentage of total leukocytesOrdered By: Grant Whitley on 09-29-2023 Lymphocytes/100 WBC Auto (Unsp spec) 19.6 % 19-41 [facility] Basophil percentageOrdered B y: Mehdi Cabrera on 09-29-2023 Cholesterol [Mass/Vol] 195 mg/dL <200 [facility] Comment on above: <200 mg/dL Desirable 200-240 mg/dL Borderline >240 mg/dL High Risk Triglyceride [Mass/Vol] 87 mg/dL <199 [facility] Comment on above: The drugs N-Acetylcy steine and Metamizole may falsely depress this assay.Serum Triglycerides Reference Interval Normal <150 mg/dL Borderline high 150 - 199 mg/dL High 200 - 499 mg/dL Very High > or = 500 mg/dL Basophil percentageOrdered B y: Grant Whitley on 09-29-2023 Basophils/100 WBC (Bld) 0.3 % 0-1 [facility] Chloride [Moles/Vol] 106 mmol/L 98-107 [facility] Eosinophils/100 WBC (Bld) 1.6 % 0-5 [facility] Glucose [Mass/Vol] 93 mg/dL 74-106 [facility] Hemoglobin (Bld) [Mass/Vol] 14.8 g/dL 12.0-15.0 [facility] Monocytes/100 WBC (Bld) 5.8 % 0-10 [facility] Neutrophils (Bld) [#/Vol] 4.8 10*3/uL 2.0-7.7 [facility] Neutrophils/100 WBC (Bld) 71.8 % 47-70 [facility] Potassium [Moles/Vol] 4.9 mmol/L 3.5-5.1 [facility] Comment on above: Moderate Hemolysis, Result may be falsely increased. Sodium [Moles/Vol] 140 mmol/L 136-145 [facility] WBC (Bld) [#/Vol] 6.7 10*3/uL 4.4-11.0 [facility] Determination of erythrocyte mean corpuscular volume (MCV)Ordered By: Grant Whitley on 09-29-2023 MCV (RBC) [Entitic vol] 94.4 fL 81-99 [facility] Erythrocyte distribution wid th ratioOrdered By: [facility] on 09-29-2023 Erythrocyte distribution width (RBC) [Ratio] 15.9 % 11.6-14.6 [facility] Erythrocyte distribution wid th standard deviationOrdered By: [facility] on 09-29-2023 Erythrocyte distribution width (RBC) [Entitic vol] 55.5 fL 35.1-43.9 [facility] Hematocrit Auto (Bld) [Volum e fraction]Ordered By: Grantcarlene Whitlye on 09-29-2023 Hematocrit (Bld) [Volume fraction] 45.6 % 37-47 [facility] Immature granulocytes/100 WB C Auto (Bld)Ordered By: Grant Whitley on 09-29-2023 Immature granulocytes/100 WBC (Bld) 0.900 % 0.0-0.9 [facility] Comment on above: IG% - Immature Granu locytes (promyelocytes, myelocytes and metamyelocytes) > 1% indicates that a LEFT SHIFT is Present. Laboratory - Chemistry and C hemistry - challengeOrdered By: Mehdi Cabrera on 09-29-2023 Cholesterol in HDL [Mass/Vol] 54 mg/dL >40 [facility] Comment on above: The drugs N-Acetylcy steine and Metamizole may falsely depress this assay. Reference Range HDL <40 mg/dL Low HDL Cholesterol HDL >or= 60 mg/dL High HDL Cholesterol Cholesterol in LDL [Mass/Vol] 124 mg/dL 0-130 [facility] Laboratory - Chemistry and C hemistry - challengeOrdered By: Grant Whitley on 09-29-2023 CO2 [Moles/Vol] 31.0 mmol/L 21.0-32.0 [facility] Urea nitrogen/Creatinine [Mass ratio] 36.0 mg/mg 10-20 [facility] Laboratory - Hematology and Cell countsOrdered By: Grant Whitley on 09-29-2023 MCH (RBC) [Entitic mass] 30.6 pg 27.0-32.0 [facility] MCHC (RBC) [Mass/Vol] 32.5 g/dL 32-36 [facility] Nucleated RBC/100 WBC (Bld) [Ratio] 0 % 0-5 [facility] Platelet mean volume (Bld) [Entitic vol] 9.9 fL 6.2-12.0 [facility] Platelets (Bld) [#/Vol] 314 10*3/uL 150-450 [facility] No Panel InformationOrdered By: Mehdi Cabrera on 09-29-2023 VLDL Cholesterol 17 mg/dL 5-40 [facility] No Panel InformationOrdered By: Grant Whitley on 09-29-2023 Estimated Creatinine Clearance Calc 25.84 ml/min [facility] Estimated GFR (MDRD) Amer 67 mL/min >60 [facility] Comment on above: GFR Calc Estimated GFR (MDRD) Non-Af Amer 56 mL/min >60 [facility] Comment on above: Non- GFR Calc RBC Auto (Bld) [#/Vol]Ordere d By: Grant Whitley on 09-29-2023 RBC (Bld) [#/Vol] 4.83 10*6/uL 4.2-5.4 [facility] Serum or plasma calcium clarke urement (mass/volume)Ordered By: Grant Whitley on 09-29-2023 Calcium [Mass/Vol] 9.6 mg/dL 8.5-10.1 [facility] Serum or plasma creatinine m easurement (mass/volume)Ordered By: Grant Whitley on 09-29-2023 Creatinine [Mass/Vol] 1.00 mg/dL 0.55-1.02 [facility] Comment on above: The validity of the calculated GFR & GFRAA in patients over 70 years has not been determined. Clinical correlation is essential. Serum or plasma urea nitroge n measurement (mass/volume)Ordered By: Grant Whitley on 09-29-2023 Urea nitrogen [Mass/Vol] 36 mg/dL - [facility] Thin prep Papanicolaou smear with manual screeningOrdered By: Grant Whitley on 09-29-2023 Thin prep Papanicolaou smear with manual screening 3 10-16 [facility] Vital Signs Date Time Vital Sign Value Performing Clinician Faci lity 03-20-2025 07:52-0400 Body height 160.[address] Sharif Ramos MD Work Phone: [facility] 12-17-2024 10:53-0400 Body height 160.[address] Sharif Ramos MD Work Phone: [facility] 06-18-2024 09:53-0500 Body mass index (BMI) [Ratio] 22.6 kg/m2 Dr. Viet Lovett MD Work Phone: [facility] 06-18-2024 09:53-0500 Body weight 58.[address] Viet Lovett MD Work Phone: [facility] 06-18-2024 09:53-0500 Diastolic blood pressure 58 mm[Hg] Dr. Viet Lovett MD Work Phone: [facility] 06-18-2024 09:53-0500 Heart rate 69 /min Dr. Viet Lovett MD Work Phone: [facility] 06-18-2024 09:53-0500 Respiratory rate 16 /min Dr. Viet Lovett MD Work Phone: [facility] 06-18-2024 09:53-0500 SaO2% (BldA) [Mass fraction] 95 % Dr. Viet Lovett MD Work Phone: [facility] 06-18-2024 09:53-0500 Systolic blood pressure 104 mm[Hg] Dr. iVet Lovett MD Work Phone: [facility] 10-10-2023 09:37-0400 Body temperature 97.7 [degF] Dr. Grant Whitley Work Phone: 3([phone])[phone] [address] 10-10-2023 09:37-0400 Diastolic blood pressure 55 mm[Hg] Dr. Grant Whitley Work Phone: 9(804)[phone] [address] 10-10-2023 09:37-0400 Heart rate 70 /min Dr. Grant Whitley Work Phone: 7(247)[phone] [place] [address] 10-10-2023 09:37-0400 Respiratory rate 16 /min Dr. Grant Whitley Work Phone: 1(046)[phone] [place] [address] 10-10-2023 09:37-0400 SaO2% (BldA) [Mass fraction] 97 % Dr. Grant Whitley Work Phone: 2(709)[phone] [place] [address] 10-10-2023 09:37-0400 Systolic blood pressure 132 mm[Hg] Dr. Grant Whitley Work Phone: 4(519)[phone] [place] [address] 10-08-2023 15:05-0400 Body height 160.[address] Grant Whitley Work Phone: 7(988)[phone] [place] [address] 10-08-2023 15:05-0400 Body weight 40.[address] Grant Whitley Work Phone: [facility] 10-07-2023 04:22-0400 Body mass index (BMI) [Ratio] 15.7 kg/m2 Dr. Grant Whitley Work Phone: [facility] 10-01-2023 01:28-0400 Inhaled oxygen flow rate 2 L/min Dr. Grant Whitley Work Phone: [facility] 09-29-2023 14:46-0400 Body temperature 98.1 [degF] [facility] 09-29-2023 14:46-0400 Diastolic blood pressure 70 mm[Hg] [facility] 09-29-2023 14:46-0400 Heart rate 70 /min [facility] 09-29-2023 14:46-0400 Respiratory rate 14 /min [facility] 09-29-2023 14:46-0400 SaO2% (BldA) [Mass fraction] 99 % [facility] 09-29-2023 14:46-0400 Systolic blood pressure 163 mm[Hg] [facility] 09-29-2023 12:46-0400 Body height 160.02 cm [facility] 09-29-2023 12:46-0400 Body mass index (BMI) [Ratio] 16.1 kg/m2 [facility] 09-29-2023 12:46-0400 Body weight 41.3 kg [facility] Encounters Encounter Date Encounter Type Care Provider Facility Start: 04-01-2025 ambulatory Sharif Cliffordi ty:[facility] Start: 02-18-2025 ambulatory Efrichie Ramos Facili ty:[facility] Start: 02-18-2025 Registered Referred Sharif Ramos MD [facility] Start: 02-10-2025 End: 02-10-[address] Sharif Ramos MD Work Phone: [facility] Start: 02-10-2025 End: 02-10-[address] Sharif Ramos MD -[facility] Work Phone: Start: 01-21-2025 ambulatory Sharif Ramos Facili ty:[facility] Start: 01-21-2025 Registered Referred Sharif Ramos MD [facility] Start: 01-15-2025 End: 01-15-[address] Sharif Ramos MD Work Phone: [facility] Start: 01-15-2025 End: 01-15-[address] Andrea Hawthorne MD -[facility] Work Phone: Start: 01-07-2025 End: 01-07-[address] Sharif Ramos MD Work Phone: [facility] Start: 01-07-2025 End: 01-07-2025 Patient encounter procedure Lashae NAM -[facility] Work Phone: Start: 01-07-2025 Registered Referred Sharif Ramos MD [facility] Start: 01-07-2025 End: 01-07-2025 ambulatory Sharif CARRENO Facility:[facility] Start: 12-31-2024 ambulatory Sharif CARRENO Fa cility:[facility] Start: 12-31-2024 Registered Referred Sharif Ramos MD [facility] Start: 12-16-2024 End: 12-16-[address] Sharif Ramos MD Work Phone: [facility] Start: 12-16-2024 End: 12-16-[address] Sharif Ramos MD -[facility] Work Phone: Start: 12-03-2024 ambulatory Sharif CARRENO Fa cility:[facility] Start: 12-03-2024 [facility] Start: 11-20-2024 End: 11-20-[address] Sharif Ramos MD Work Phone: [facility] Start: 11-20-2024 End: 11-20-2024 Patient encounter procedure Jamar DE LA PAZ -[facility] Work Phone: Start: 11-05-2024 ambulatory Sharif Edmondson cility:[facility] Start: 11-05-2024 Registered Referred Sharif Ramos MD [facility] Start: 10-16-2024 End: 10-16-[address] Sharif Ramos MD Work Phone: [facility] Work Phone: Start: 10-16-2024 End: 10-16-[address] Andrea Hawthorne MD -[facility] Work Phone: Start: 10-15-2024 End: 10-15-[address] Sharif Ramos MD Work Phone: [facility] Start: 10-15-2024 End: 10-15-2024 [facility] Start: 10-08-2024 End: 10-08-2024 ambulatory Sharif Ramos MD [facility] Work Phone: Start: 10-08-2024 End: 10-08-2024 Departed Referred Sharif Ramos MD [facility] Start: 10-07-2024 End: 10-08-[address] Sharif Ramos MD Work Phone: [facility] Start: 10-07-2024 End: 10-07-[address] Sharif Ramos MD [facility] Work Phone: Start: 09-02-2024 End: 09-02-2024 ambulatory Sharif Ramos [facility] Start: 09-02-2024 End: 09-02-2024 [facility] Start: 08-17-2024 End: 08-17-2024 ambulatory Efrichie Pagangregg Facility:[facility] Start: 08-17-2024 End: 08-17-[address] Andrea Hawthorne MD -[facility] Work Phone: Start: 08-13-2024 [facility] Start: 08-13-2024 End: 08-13-[address] Viet Lovett MD Work Phone: [facility] Work Phone: Start: 08-13-2024 End: 08-13-2024 [facility] Start: 08-12-2024 End: 08-13-2024 ambulatory Sharif CARRENO Facility:[facility] Start: 08-12-2024 End: 08-12-[address] Sharif Ramos MD -[facility] Work Phone: Start: 07-31-2024 End: 07-31-2024 ambulatory Efrichie Pagangregg Facility:[facility] Start: 07-31-2024 End: 07-31-2024 Patient encounter procedure Jamar DE LA PAZ -[facility] Work Phone: Start: 07-09-2024 End: 07-09-2024 ambulatory Andrea Hawthorne Facility:[facility] Start: 07-09-2024 End: 07-09-[address] Andrea Hawthorne MD -[facility] Work Phone: Start: 06-26-2024 ambulatory Sharif CARRENO Fa cility:[facility] Start: 06-26-2024 [facility] Start: 06-24-2024 End: 06-24-2024 ambulatory Lashae Garner Facility:[facility] Start: 06-24-2024 End: 06-24-2024 Patient encounter procedure Lashae NAM -[facility] Work Phone: Start: 06-18-2024 End: 06-18-[address] Andrea Hawthorne MD -[facility] Work Phone: Start: 06-18-2024 End: 06-18-2024 ambulatory Efewongbe Oleghe OLS Facility:[facility] Start: 06-17-2024 End: 06-17-2024 ambulatory Efewongbe Oleghe Facility:[facility] Start: 06-17-2024 End: 06-17-[address] Sharif Ramos MD -[facility] Work Phone: Start: 06-06-2024 ambulatory Efewongbe Oleghe OLS Fa cility:[facility] Start: 06-06-2024 [facility] Start: 05-15-2024 End: 05-15-2024 [facility] Start: 05-15-2024 End: 05-15-2024 ambulatory Efewongbe Randallghe EV Facility:[facility] Start: 05-07-2024 End: 05-07-2024 [facility] Start: 05-06-2024 End: 05-07-2024 ambulatory Efewongbe Randallghe OLS Facility:[facility] Start: 04-24-2024 End: 04-24-2024 ambulatory Efewongbe Oleghe OLS [facility] Start: 04-09-2024 End: 04-09-2024 ambulatory Efewongbe Oleghe OLS Facility:[facility] Start: 10-09-2023 Non-patient / Non-visit Dr. Tamica Whitley Work Phone: [facility] Work Phone: Start: 10-08-2023 Non-patient / Non-visit Dr. Tamica Whitley Work Phone: [facility] Work Phone: Start: 10-07-2023 Non-patient / Non-visit Dr. Tamica Whitley Work Phone: [facility] Work Phone: Start: 10-06-2023 Non-patient / Non-visit Dr. Tamica Whitley Work Phone: [facility] Work Phone: Start: 10-05-2023 Non-patient [...] / Non-visit Dr. Tamica Whitley Work Phone: [facility] Start: 10-01-2023 Non-patient / Non-visit Dr. Tamica Whitley Work Phone: [facility] Start: 09-30-2023 Non-patient / Non-visit Dr. Tamica Whitley Work Phone: [facility] Start: 09-30-2023 Non-patient / Non-visit Dr. Tamica Whitley Work Phone: [facility] Work Phone: Start: 09-29-2023 End: 10-10-2023 Evaluation and management of inpatient [facility] Work Phone: Procedures Date Procedure [...] Detail Author Start: 10-10-2023 Patient discharge [facility] Start: 10-04-2023 Verification routine [facility] Start: 10-02-2023 Care planning and pr oblem solving actions [facility] Start: 10-01-2023 Consultation [facility] Start: 09-30-2023 End: 09-30-2023 [facility] Start: 09-30-2023 Ambulation therapy management [facility] Start: 09-30-2023 Application of device [facility] Start: 09-30-2023 Exercises [facility] Start: 09-30-2023 Following clinical p athway protocol [facility] Start: 09-30-2023 Introduction of urin gideon catheter [facility] Start: 09-30-2023 Neurovascular assessment [facility] Start: 09-30-2023 Patient education [facility] Start: 09-30-2023 Provision of activit y privileges [facility] Start: 09-30-2023 Referral to occupati onal therapist [facility] Start: 09-30-2023 Referral to service [facility] Start: 09-30-2023 Skin care [facility] Start: 09-30-2023 Vital signs measurements [facility] Start: 09-30-2023 Wound care [facility] Start: 09-30-2023 Recommendation to co ntinue with treatment [facility] Start: 09-29-2023 Application of inter mittent pneumatic compression device [facility] Start: 09-29-2023 Following clinical p athway protocol [facility] Start: 09-29-2023 Assessment of risk o f venous thromboembolism [facility] Start: 09-29-2023 Documentation procedure [facility] Start: 09-29-2023 Incentive spirometry [facility] Start: 09-29-2023 Insertion of cathete r into peripheral vein [facility] Start: 09-29-2023 Measuring intake and output [facility] Start: 09-29-2023 Providing care accor ding to standard [facility] Start: 09-29-2023 Referral to service [facility] Start: 09-29-2023 [facility] Start: 09-29-2023 Hospital admission, emergency, from emergency room, medical nature [facility] Start: 09-29-2023 Verification routine [facility] Start: 09-29-2023 Admission procedure [facility] Start: 09-29-2023 [facility] Start: 09-29-2023 Patient referral to dietitian [facility] Patient Education Bruises (Contusions) ED Skin Tear (Skin Avulsion) [facility] Work Phone: Patient referral [facility] Work Phone: Immunizations Immunization Date Immunization Notes Care Provider Fa cility 09-29-2023 tetanus toxoid, redu jorge diphtheria toxoid, and acellular pertussis vaccine, adsorbed [facility] Payers Date Payer Category Payer Unknown [id number] 2024 Medicaid [id number] 2024 Private Health Insurance [id number] 2024 Self-pay Unknown [id number] 2.16.8 40.1.574174.3.579.2.462 Unknown [id number] 2.16.8 40.1.151059.3.579.2.462 Unknown [id number] 2.16.8 40.1.571172.3.579.2.462 Unknown [id number] 2.16.8 40.1.278387.3.579.2.462 Unknown [id number] 2.16.8 40.1.193907.3.579.2.462 Unknown [id number] 2.16.8 40.1.008754.3.579.2.462 Unknown [id number] 2.16.8 40.1.177284.3.579.2.462 Unknown [id number] 2.16.8 40.1.287088.3.579.2.462 Unknown [id number] 2.16.8 40.1.531356.3.579.2.462 Unknown [id number] 2.16.8 40.1.508327.3.579.2.462 Unknown [id number] 2.16.8 40.1.120935.3.579.2.462 Unknown [id number] 2.16.8 40.1.706208.3.579.2.462 Unknown [id number] 2.16.8 40.1.466523.3.579.2.462 Unknown [id number] 2.16.8 40.1.271904.3.579.2.462 Unknown [id number] 2.16.8 40.1.817827.3.579.2.462 Unknown [id number] 2.16.8 40.1.456834.3.579.2.462 Unknown [id number] 2.16.8 40.1.808095.3.579.2.462 Unknown [id number] 2.16.8 40.1.262795.3.579.2.462 Unknown [id number] 2.16.8 40.1.813921.3.579.2.462 Unknown [id number] 2.16.8 40.1.039927.3.579.2.462 Unknown [id number] 2.16.8 40.1.954788.3.579.2.462 Unknown [id number] 2.16.8 40.1.208154.3.579.2.462 Unknown [id number] 2.16.8 40.1.712995.3.579.2.462 Unknown [id number] 2.16.8 40.1.989352.3.579.2.462 Unknown [id number] 2.16.8 40.1.543718.3.579.2.462 Unknown [id number] 2.16.8 40.1.361359.3.579.2.462 Unknown [id number] 2.16.8 40.1.121904.3.579.2.462 Unknown [id number] 2.16.8 40.1.137780.3.579.2.462 Unknown [id number] 2.16.8 40.1.503936.3.579.2.462 Unknown [id number] 2.16.8 40.1.323359.3.579.2.462 Unknown [id number] 2.16.8 40.1.819670.3.579.2.462 Unknown [id number] 2.16.8 40.1.297828.3.579.2.462 Unknown [id number] 2.16.8 40.1.844192.3.579.2.462 Unknown [id number] 2.16.8 40.1.105389.3.579.2.462 Social History Date Type Detail Facility Start: 09-29-2023 End: 09-29-2023 Tobacco smoking status NDIS Unknown if ever smoked [facility] Start: 1935 Sex Assigned At Female [facility] Start: 06-19-2024 End: 03-20-2025 Tobacco smoking status NHIS Never smoked tobacco (finding) [facility] Start: 09-04-2024 End: 09-04-2024 Sex Female (finding) [facility] Sex Female [facility] Medical Equipment Procedure Code Equipment [...] uncemented hemiarthroplasty of hip Orthopaedic cement, non-antimicrobial ()[id number] FDA Start: 09-30-2023 Primary uncemented hemiarthroplasty [...] Result Facility 10-10-2023 Functional status Bathroom Privilege [facility] Work Phone: Mental Status Date Assessment Result Facility 10-10-2023 Cognitive function Voice/Name [facility] Work Phone: Clinical Notes 09-29-2023 to 07-09-2024 Note Date & Type Note Facility 07-09-2024 Evaluation note Diagnosis Onset Date Resolution CHF (congestive heart failure) acute July 09 10:48am 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 acute July 09 10:48am Ischemic cardiomyopathy acute F ebruary 2024 10:48am [facility] Work Phone: 1(960) 785-915501-15-2025 Evaluation note* Diagnosis Onset Date Resolution Status [...] Ischemic cardiomyopathy acute F ebruary 2024 10:48am [facility] Work Phone: 1(641) 267-797805-08-2024 Consult note Author Jazmin Oliveira [facility] October 10, 2023 10:50am Note Date/Time October 10, 2023 10:50a m [facility] Medical Records Department [address] [place] [address] Counseling Note - Pharmacy 10/10/23 1050 MR#: [id number] Acct: [id number] Name: SHERRIE LOZANO Rep #:[id number] : 1935 88 From: Jazmin Oliveira PCP: Dr. Viet Lovett MD Status:ADM I N Y [place] [facility] [id number] Med Reconciliation Pharmacy Service has performed discharge [...] Signature (if applicable): Date CC: ~ Signed [facility] Work Phone: 1(853) 663-187805-07-2024 Progress note Author Tammi Frost [facility] October 09, 2023 4:09pm Note Date/Time October 09, 2023 4:09pm [facility] Medical Records Department [address] [place] [id number] Progress Note - Hospitalist 10/09/23 1607 MR#: [id number] Acct: [id number] Name: SHERRIE LOZANO Rep #:[id number] : 1935 88 From: Tammi Frost DO PCP: Dr. 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 Patient's been medically ready for discharge since 10/04/2023. Charges/Coding Visit Charges Inpatient E&M: 15943 Subs Hosp L1 10/09/23 160 <Electronically signed by Tammi Frost DO> Cosigner Signature (if applicable): CC: ~ Signed [facility] Work Phone: 1(965) 233-946605-06-2024 Progress note Author Tammi Frost [facility] October 08, 2023 5:12pm Note Date/Time October 08, 2023 5:12pm [facility] Medical Records Department [address] [place] [address] Progress Note - Hospitalist 10/08/23 1705 MR#: [id number] Acct: [id number] Name: SHERRIE LOZANO Rep #:[id number] : 1935 88 From: Tammi Frost DO PCP: Dr. Viet Lovett MD Status:ADM I N [place] [facility] [place] Reason for Visit Reason for Visit: Left hip pain status post fall Subjective Subjective Patient denies any issues currently. Unfortunately, insurance [place] out of state and does not cover [facility]. 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 Patient's been medically ready for discharge since 10/04/2023. Charges/Coding Visit Charges Inpatient E&M: 43268 Subs Hosp L2 10/08/23 1712 <Electronically signed by Tammi Frost DO> Cosigner Signature (if applicable): CC: ~ Signed [facility] Work Phone: 1(111) 416-712405-06-2024 Discharge summary Author Tammi Frost [facility] October 08, 2023 10:21am Note Date/Time October 08, 2023 10:21a m [facility] Medical Records Department [address] [place] [address] Transfer to [facility] MR#: [id number] Acct: [id number] Name: SHERRIE LOZANO Rep #:[id number] : 1935 88 From: Tammi Frost DO PCP: Dr. Viet Lovett MD Status:ADM I N Certification of patient admission REQUIRED AT TIME OF ADMISSION. I CERTIFY THAT POST-HOSPITAL ECF SERVICES ARE REQUIRED TO BE GIVEN ON AN IN-PATIENT BASIS BECAUSE OF THE ABOVE NAMED PATIENT'S NEED FOR ALF CARE ON A CONTINUING BASIS FOR THE CONDITION(S) FOR WHICH HE/SHE WAS RECEIVING IN-PATIENT HOSPITAL SERVICES PRIOR TO HIS/HER TRANSFER TO THE ECF. 10/08/23 1021<Electronically signed by Tammi Frost DO> [...] Other malaise Allergies/Procedures Done in Hospital Allergies Udtkcza-OXH-PcW Reductase Inhibitor Adverse Reaction (Mild, Verified 09/29/23 [...] Waite MD; Dr. Viet Lovett MD ~ [facility] Work Phone: 1(241) 610-140505-05-2024 Progress note Author Joon Yuen [facility] October 07, 2023 12:45pm Note Date/Time October 07, 2023 11:16a m [facility] Medical Records Department [address] [place] [address] Progress Note - Hospitalist 10/07/23 1115 MR#: [id number] Acct: [id number] Name: SHERRIE LOZANO Rep #:[id number] : 1935 88 From: Joon garcía DO PCP: Dr. Viet Lovett MD Status:ADM I N [place] [facility] [place] BH359-7 Reason for Visit Reason for Visit: Diagnoses [...] 10/02/23 12:07 RMA (Rec: 10/02/23 12:08 RMA [id number]) Nutrition Malnutrition Evidence of Malnutrition Exists Yes [...] Patient is an 88-year-old female who presented [facility] ED on 09/29/2023 after a fall with [...] management following. Lives in assisted living side [facility], planning for discharge to [facility] side there, has been complicated by insurance [...] 25 minutes. Charges/Coding Visit Charges Inpatient E&M: 13639 Subs Hosp L1 10/07/23 1245 <Electronically signed by Joon Yuen DO> Cosigner Signature (if applicable): CC: ~ Signed [facility] Work Phone: 1(614) 515-605605-04-2024 Progress note Author Joon [facility] October 06, 2023 11:01am Note Date/Time October 06, 2023 9:30am [facility] Medical Records Department [address] [place] [address] Progress Note - Hospitalist 10/06/2330 MR#: [id number] Acct: [id number] Name: SHERRIE LOZANO Rep #:[id number] : 1935 88 From: Joon garcía DO PCP: Dr. Viet Lovett MD Status:ADM I N Location: [place] [address] Reason for Visit Reason for Visit: Diagnoses [...] 10/02/23 12:07 RMA (Rec: 10/02/23 12:08 RMA [id number]) Nutrition Malnutrition Evidence of Malnutrition Exists Yes [...] Patient is an 88-year-old female who presented [facility] ED on 09/29/2023 after a fall with [...] PT/OT/case management following. Lives in assisted living [facility], planning for discharge to [facility] side there, has been complicated by insurance [...] 25 minutes. Charges/Coding Visit Charges Inpatient E&M: 31966 Subs Hosp L1 10/06/23 1101 <Electronically signed by Joon Yuen DO> Cosigner Signature (if applicable): CC: ~ Signed [facility] Work Phone: 1(626) 946-871905-03-2024 Progress note Author Joon [facility] October 05, 2023 1:37pm Note Date/Time October 05, 2023 1:37pm [facility] Medical Records Department [address] [place] [address] Progress Note - Hospitalist 10/05/23 1335 MR#: [id number] Acct: [id number] Name: SHERRIE LOZANO Rep #:[id number] : 1935 88 From: Joon garcía DO PCP: Dr. Viet Lovett MD Status:ADM I N Location: [place] 741395-1 Reason for Visit Reason for Visit: Diagnoses [...] 10/02/23 12:07 RMA (Rec: 10/02/23 12:08 RMA [id number]) Nutrition Malnutrition Evidence of Malnutrition Exists Yes [...] Patient is an 88-year-old female who presented [facility] ED on 09/29/2023 after a fall with [...] management following. Lives in assisted living side [facility], planning for discharge to SNF side [...] 25 minutes. Charges/Coding Visit Charges Inpatient E&M: 61490 Subs Hosp L1 10/05/23 1337 <Electronically signed by Joon Yuen DO> Cosigner Signature (if applicable): CC: ~ Signed [facility] Work Phone: 1(254) 972-276705-02-2024 Progress note [facility] 04, [facility] 6:56pm Note Date/Time October 04, 2023 1:47pm [facility] Medical Records Department [address] [place] [address] Progress Note - Hospitalist 10/04/23 1347 MR#: [id number] Acct: [id number] Name: SHERRIE LOZANO Rep #:[id number] : 1935 88 From: Joon garcía DO PCP: Dr. Viet Lovett MD Status:ADM I N Location: [place] TZ338-1 Reason for Visit Reason for Visit: Diagnoses [...] place. Patient currently resides with her at [facility] in the assisted living side. Current plan is for patient to discharge to [facility] side of [facility] once the insurance issues have been worked out. No other acute concerns this morning. Objective Data Objective Data Vital Signs: Vital Signs Temp Pulse Resp BP Pulse Ox O2 Del Method O2 Flow Rate 98.2 F 72 18 104/45 L 100 Room Air 2 10/04/23 10:04 10/04/23 11:19 10/04/23 10:04 10/04/23 11:19 10/04/23 10:04 10/04/23 10:04 10/01/23 01:28 Oxygen Flow Rate (L/min) 2 [...] 10/02/23 12:07 RMA (Rec: 10/02/23 12:08 RMA [id number]) Nutrition Malnutrition Evidence of Malnutrition Exists Yes [...] Patient is an 88-year-old female who presented [facility] ED on 09/29/2023 after a fall with [...] management following. Lives in assisted living side [facility], planning for discharge to SNF side [...] 35 minutes. Charges/Coding Visit Charges Inpatient E&M: 44753 Subs Hosp L2 10/04/23 1856 <Electronically signed by Joon Yuen DO> Cosigner Signature (if applicable): CC: ~ Signed [facility] Work Phone: 1(908) 580-826405-01-2024 Progress note Author Anson Waite [facility] October 03, 2023 1:28pm Note Date/Time October 03, 2023 1:20pm [facility] Medical Records Department [address] [place] [address] Progress Note - Hospitalist 10/03/23 1315 MR#: [id number] Acct: [id number] Name: SHERRIE LOZANO Rep #:[id number] : 1935 88 From: Anson Pritchard PCP: Dr. Viet Lovett MD Status:ADM I N Location: [place] [address] Reason for Visit Reason for Visit: Diagnoses [...] 10/02/23 12:07 RMA (Rec: 10/02/23 12:08 RMA [id number]) Nutrition Malnutrition Evidence of Malnutrition Exists Yes [...] PLAN: Plan 88-year-old female was admitted to [facility] after she lost her balance, left knee [...] Has Drake catheter. Give Tylenol prn for edto-pf-zwoczbvg (level 1-5/10) pain or fever. Give Morphine [...] evidence of postoperative complication. Discussed with the caser up to start for precertification/authorization for SNF 10/01: [...] diastolic heart failure as per history from [facility], Dr. Júnior Hays which states he has EF about 30%. No documentation available. 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 but planning to establish with [...] EDT , Charges/Coding Visit Charges Inpatient E&M: 45071 Subs Hosp L2 10/03/23 1328 <Electronically signed by Anson Waite MD> Cosigner Signature (if applicable): CC: ~ Signed [facility] Work Phone: 1(351) 492-372604-30-2024 Progress note Author Anson Waite [facility] October 02, 2023 1:43pm Note Date/Time October 02, 2023 1:3 7pm [facility] Medical Records Department [address] [place] [address] Progress Note - Hospitalist 10/02/23 1335 MR#: [id number] Acct: [id number] Name: SHERRIE LOZANO Rep #:[id number] : 1935 88 From: Anson Pritchard PCP: Dr. Viet Lovett MD Status:ADM I N [place] [facility] [place] CI513-1 Reason for Visit Reason for Visit: Diagnoses [...] 10/02/23 12:07 RMA (Rec: 10/02/23 12:08 RMA [id number]) Nutrition Malnutrition Evidence of Malnutrition Exists Yes [...] 84.0 H, Lymph % (Auto) 7.3 L, Hinds % (Auto) 7.4, Eos % (Auto) 0.6, [...] PLAN: Plan 88-year-old female was admitted to [facility] after she lost her balance, left knee [...] Has Drake catheter. Give Tylenol prn for ymbh-qa-lbbloers (level 1-5/10) pain or fever. Give Morphine [...] evidence of postoperative complication. Discussed with the caser up to start for precertification/authorization for SNF 10/01: [...] haloperidol last night. CKD stage IIIb: BUNs/creatinine /.08. Creatinine on admission 1.0. No majorsignificant difference. [...] 30%. No documentation available. 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 but planning to establish with [...] EDT , Charges/Coding Visit Charges Inpatient E&M: 58575 Subs Hosp L2 10/02/23 1343 <Electronically signed by Anson Waite MD> Cosigner Signature (if applicable): CC: ~ Signed [facility] Work Phone: 1(796) 292-309104-29-2024 Progress note Author Anson Waite [facility] October 01, 2023 4:41pm Note Date/Time October 01, 2023 4:4 1pm [facility] Medical Records Department [address] [place] [address] Progress Note - Hospitalist 10/01/23 1632 MR#: [id number] Acct: [id number] Name: SHERRIE LOZANO Rep #:[id number] : 1935 88 From: Anson Pritchard PCP: Dr. Viet Lovett MD Status:ADM I N Location: [place] [address] Reason for Visit Reason for Visit: Diagnoses [...] 09/30/23 15:18 RMA (Rec: 09/30/23 15:18 RMA [id number]) Nutrition Malnutrition Evidence of Malnutrition Exists Yes [...] 83.6 H, Lymph % (Auto) 6.6 L, Hinds % (Auto) 9.1, Eos % (Auto) 0.0, [...] PLAN: Plan 88-year-old female was admitted to [facility] after she lost her balance, left knee [...] Has Drake catheter. Give Tylenol prn for ugww-ug-zqkfeudu (level 1-5/10) pain or fever. Give Morphine [...] evidence of postoperative complication. Discussed with the caser up to start for precertification/authorization for SNF CKD [...] 30%. No documentation available. 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 No focal infiltrate. Electronically Signed: Enrrique Carty MD at 14:48 EDT Reading Location ID and State: [facility] [place] , Service support , Hip/Pelvis X-Ray 09/29/23 [...] EDT , Charges/Coding Visit Charges Inpatient E&M: 00394 Subs Hosp L2 10/01/23 1641 <Electronically signed by Anson Waite MD> Cosigner Signature (if applicable): CC: ~ Signed [facility] Work Phone: 1(877) 564-528804-29-2024 Progress note Author Amol Yoder [facility] October 01, 2023 11:45am Note Date/Time October 01, 2023 11: 45am [facility] Medical Records Department [address] [place] [address] Progress Note - Orthopedic 10/01/23 1142 MR#: [id number] Acct: [id number] Name: SHERRIE LOZANO Rep #:[id number] : 1935 88 From: Amol Yoder DO PCP: Dr. Viet Lovett MD Status:ADM I N Location: [place] TH774-7 Subjective Subjective Seen and examined. Pain controlled [...] 09/30/23 15:18 RMA (Rec: 09/30/23 15:18 RMA [id number]) Nutrition Malnutrition Evidence of Malnutrition Exists Yes [...] 83.6 H, Lymph % (Auto) 6.6 L, Hinds % (Auto) 9.1, Eos % (Auto) 0.0, [...] Signed: Bryan Tran MD at 13:37 EDT Reading Location ID and State: [facility] / [place] , Service support , Physical Exam Const alert, oriented x3 [...] wound check if patient is at a [facility] rehab or TCU I am happy to see her there instead. Call with any questions or concerns 10/01/23 8609 <Electronically signed by Amol Yoder DO> Cosigner Signature (if applicable): CC: ~ Signed [facility] Work Phone: 1(735) 942-228004-28-2024 Progress note Author Anson Waite [facility] September 30, 2023 12:41pm Note Date/Time September 30, 2023 7:5 4am [facility] Medical Records Department [address] [place] [address] Progress Note - Hospitalist 09/30/23 0752 MR#: [id number] Acct: [id number] Name: SHERRIE LOZANO Rep #:[id number] : 1935 88 From: Anson Pritchard PCP: Dr. Viet Lovett MD Status:ADM I N Location: [place] HB721-7 Reason for Visit Reason for Visit: Diagnoses [...] (Auto) 71.8 H, Lymph % (Auto) 19.6, Hinds % (Auto) 5.8, Eos % (Auto) 1.6, [...] 77.8 H, Lymph % (Auto) 12.0 L, Hinds % (Auto) 7.9, Eos % (Auto) 1.3, [...] 14:48 EDT Reading Location ID and State: [facility] [place] , Service support , Hip/Pelvis X-Ray 09/29/23 [...] PLAN: Plan 88-year-old female was [facility] after she lost her balance, left [...] Has Drake catheter. Give Tylenol prn for jyre-qg-saglmrsv (level 1-5/10) pain or fever. Give Morphine [...] systolic heart failure as per history from [place], Dr. Júnior Hays which states he has EF about 30%. No documentation available. 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 No focal infiltrate. Electronically Signed: Enrrique Carty MD at 14:48 EDT Reading Location ID and State: [facility] [place] , Service support , Hip/Pelvis X-Ray 09/29/23 14:25 IMPRESSION: Left femoral neck fracture. Electronically Signed: Enrrique Carty MD at 14:49 EDT Reading Location ID and State: [facility] [place] , Service support , Charges/Coding Addendum Addendum: [...] is 40 minutes. Visit Charges Inpatient E&M: 58424 Subs Hosp 09/30/23 1241 <Electronically signed by Anson Waite MD> Cosigner Signature (if applicable): CC: ~ Signed [facility] Work Phone: 1(552) 156-429204-28-2024 [facility] Consult note Author Amol Yoder [facility] September 30, 2023 10:49am Note Date/Time September 30, 2023 10: 49am [facility] Medical Records Department [address] [place] [address] Consultation 09/30/23 1046 MR#: [id number] Acct: [id number] Name: SHERRIE LOZANO Rep #:[id number] : 1935 88 From: Amol Yoder DO PCP: Dr. Viet Lovett MD Status:ADM I N Location: [place] [id number] Assessment & Plan Assessment/Plan (1) Fracture of [...] community ambulator with walker who lives with [facility] who presents after ground-level fall where her knee buckled landing ontoher left hip immediately had significant groin pain and inability ambulate x-rays taken in the emergency room department demonstrated displaced femoral neck fracture. [facility] Medical History Brain bleed CHF (congestive heart [...] Type Severity Reaction Status Date / Time Pzkyllh-RZX-SdY Reductase AdvReac Mild muscle Verified 09/29/23 12:42 [...] (Auto) 71.8 H, Lymph % (Auto) 19.6, Hinds % (Auto) 5.8, Eos % (Auto) 1.6, [...] 77.8 H, Lymph % (Auto) 12.0 L, Hinds % (Auto) 7.9, Eos % (Auto) 1.3, [...] 13:16 EDT Reading Location ID and State: [address] [place] [address] , Service support , Chest X-Ray 09/29/23 14:25 IMPRESSION: Cardiac enlargement. No focal infiltrate. Electronically Signed: Enrrique Carty MD at 14:48 EDT Reading Location ID and State: [address] [place] [address] , Service support , Hip/Pelvis X-Ray 09/29/23 14:25 IMPRESSION: Left femoral neck fracture. Electronically Signed: Enrrique Carty MD at 14:49 EDT Reading Location ID and State: [facility] [place] , Service support , 09/30/23 1049 <Electronically signed by Amol Yoder DO> Cosigner Signature (if applicable): CC: Dr. Viet Lovett MD~ Signed [facility] Work Phone: 1(529) 171-871204-27-2024 History and physical note Author Mehdi Cabrera [facility] September 29, 2023 6:39pm Note Date/Time September 29, 2023 2:2 7pm [facility] Medical Records Department [address] [place] [address] H&P Exam - Hospitalist 09/29/23 1407 MR#: [id number] Acct: [id number] Name: SHERRIE LOZANO Rep #:[id number] : 1935 88 From: Mehdi Lundy DO PCP: Dr. Viet Lovett MD Status:ADM I N Location: [facility] ZF916-1 [facility] - General General Date of Admission: [...] with subsequent severe photosensitivity who presents to [facility] ERcomplaining of fall with Left hip fracture. [...] patient and her recently moved her from [place], [place] since she grew up in [place], [place]. In the ER her X-rays were positive for a Left femoral neck fracture with clinical evidenceof Left lateral elbow skin tears x 2 and she was then admitted to the general medical floor for ongoing care for a stay that is expected to be greater than 48hours. [facility] Medical History Brain bleed CHF (congestive heart [...] Type Severity Reaction Status Date / Time Ptojudc-OST-WsS Reductase AdvReac Mild muscle Verified 09/29/23 12:42 [...] 13:16 EDT Reading Location ID and State: [address] [place] [address] , Service support , Assessment & Plan [...] on strict bedrest. Give Tylenol prn for taqy-ro-jqrdwjmt (level 1-5/10) pain or fever. Give Morphine [...] 55 minutes. Charges/Coding Visit Charges Inpatient E&M: 45635 Init Hosp L2 09/29/23 1839 <Electronically signed by Mehdi Crespo DO> Cosigner Signature (if applicable): CC: Dr. Mehdi Crespo DO; Dr. Viet Lovett MD~ Signed [facility] Work Phone: 1(275) 681-242604-27-2024 Discharge summary Author Grant Whitley [facility] September 29, 2023 2:48pm Note Date/Time September 29, 2023 12: 49pm [facility] Medical Records Department [address] [place] [address] Emergency Department Summary 09/29/23 MR#: [id number] Acct: [id number] Name: SHERRIE LOZANO Rep #:[id number] : 1935 88 From: Grant Whitley MD PCP: Dr. Viet Lovett MD Status:ADM I N [place] [facility] [place]W562-6 HPI HPI - Fall History of Present [...] woman. She and her recently moved from [place]. She grew up in [place]. They are returning to a assisted living [...] Type Severity Reaction Status Date / Time Hwavwca-GXY-FbC Reductase AdvReac Mild muscle Verified 09/29/23 12:42 [...] Patient has no clonus or Babinski sign. [place] Coma Scale: document GCS findings Spontaneous Obeys [...] problems, contact your Primary Care Provider. Call [facility] ([phone]) or report to the closest Emergency Room. Call 911 if necessary. 09/29/23 1311 <Electronically signed by Grant Whitley MD> Cosigner Signature (if applicable): CC: Dr. Viet oLvett MD ~ Signed ADDENDUM by Dr. Grant [...] cc: Dr. Viet Lovett MD ~* Signed [facility] Work Phone: 1(788) 350-668104-27-2024 Discharge summary Author Grant Whitley [facility] September 29, 2023 2:48pm Note Date/Time September 29, 2023 12: 49pm [facility] Medical Records Department [address] [place] [address] Emergency Department Summary 09/29/23 MR#: [id number] Acct: [id number] Name: SHERRIE LOZANO Rep #:[id number] : 1935 88 From: Grant Whitley MD PCP: Dr. Viet Lovett MD Status:ADM I N [facility] HPI HPI - Fall History of Present [...] woman. She and her recently moved from [place]. She grew up in [place]. They are returning to a assisted living [...] Type Severity Reaction Status Date / Time Qdenvuo-SCQ-LnU Reductase AdvReac Mild muscle Verified 09/29/23 12:42 [...] problems, contact your Primary Care Provider. Call [facility] ([phone]) or report to the closest Emergency Room. [...] cc: Dr. Viet Lovett MD ~* Signed [facility] Work Phone: Evaluation note* Diagnosis Onset Date Resolution Status Contusion of pelvic region a cute Fracture of femoral neck, left, closed acute Injury due to fall acute ISTAP type 3 skin tear of left elbow acute [facility] Work Phone: Evaluation note* Diagnosis Onset Date [...] pacemaker acute S/P hip hemiarthroplasty acu te [facility] Work Phone: Evaluation noteNo assessment information available [facility] Work Phone: Reason for referral (narrative)No reason for referral information availableMadison Health Work Phone: Chief Complaint and Reason for [...] Date LABWORK May 07, 2024 5 :10am ALF LAB WORK May 15 5:00am ALF LAB WORK June 06, 2024 5:00am MONTHLY EXAM June 17, 2024 4 :00pm ESTABLISH (WVM) June 18, 2024 1 :04pm NEW CONCERN June 24, 2024 9 :42am ALF LAB WORK June 26, 2024 5:00am Pacer Check Remote July 09, 2024 9 :00am NEW ENROLEE (SCANNED) July 09, 2024 10:48am MONTHLY EXAM July 31, 2024 9:35am MONTHLY EXAM August 12, 2024 3:1 5pm ALF LAB WORK August 13, 2024 5 :00am ALF LAB WORK August 13, 2024 6 :30am [...] MONTHLY EXAM August 12, 2024 3:1 5pm ALF LAB WORK August 13, 2024 5 :00am ALF LAB WORK August 13, 2024 6 :30am [...] MONTHLY EXAM August 12, 2024 3:1 5pm ALF LAB WORK August 13, 2024 5 :00am ALF LAB WORK August 13, 2024 6 :30am [...] Monthly Exam December 16, 2024 4:06 pm ALF LAB WORK December 31, 2024 5: 00am [...] Monthly Exam December 16, 2024 4:06 pm ALF LAB WORK December 31, 2024 5: 00am ALF LAB WORK January 07, 2025 5 :00am MONTHLY NOTE January 07, 2025 4:5 7pm Pacer Check Remote January 15, 2025 2: 00am Chief Complaint Admit Date LABWORK December 03, 2024 5:00a m Monthly Exam December 16, 2024 4:06 pm ALF LAB WORK December 31, 2024 5: 00am ALF LAB WORK January 07, 2025 5 :00am MONTHLY NOTE January 07, 2025 4:5 7pm Pacer Check Remote January 15, 2025 2: 00am ALF LAB WORK January 21, 2025 5:00am MONTHLY EXAM February 10, 2025 2:58pm ALF LAB WORK February 18 5:25am Advance Directives No Advanced Directives Records Found Advance Directive Response Recorded Date/ Time Living Will Yes September 29, 2023 12:43pm Power of Street Roller Engineer Yes September 28 12:43pm Name of Medical Power of Street Roller Engineer Archana bullard September 29, 2023 12:43pm Advance Directive Response Recorded Date/ Time Name of Medical Power of Street Roller Engineer Archana bullard September 29, 2023 3:25pm Living Will Yes September 29, 2023 3:25pm Power of Street Roller Engineer Yes September 28 3:25pm Summary Purpose Family [...] Provi johanne Active Dr. Amol Yoder , DO Other Provider Active Team Status: [...] 2024 End: June 24, 2024 Lashae Garner PLASTIC MOLDING OPERATOR, PLASTIC MOLDING OPERATOR-C Attending Provider Active Start: June 24, 2024 [...] End: September 02, 2024 Lashae Garner NP, PLASTIC MOLDING OPERATOR-C Attending Provider Active Start: September 02, 2024 [...] 2024 End: September 02, 2024 Lashae Garner PLASTIC MOLDING OPERATOR, PLASTIC MOLDING OPERATOR-C Attending Provider Active Start: September 02, 2024 [...] 2024 End: October 15, 2024 Lashae Garner PLASTIC MOLDING OPERATOR, PLASTIC MOLDING OPERATOR-C Attending Provider Active Start: October 15, 2024 [...] 2024 End: October 15, 2024 Lashae Garner PLASTIC MOLDING OPERATOR, PLASTIC MOLDING OPERATOR-C Attending Provider Active Start: October 15, 2024 [...] 2025 End: January 07, 2025 Lashae Garner PLASTIC MOLDING OPERATOR, PLASTIC MOLDING OPERATOR-C Attending Provider Active Start: January 07, 2025 [...] Active Start: January 21, 2025 Team Status: Active Member Role/Relationship Status Dates Dr. Sharif Ramos MD Primary care physician Activ e Team Status: Active Member Role/Relationship Status Dates Dr. Sharif Ramos MD Primary care physician Activ e Start: December 03, 2024 Sharif CARRENO MD Attending physician Active Start: December 03, 2024 Team Status: Inactive Member Role/Relationship Status Dates Dr. Sharif Ramos MD Primary care physician Activ e Start: December 16, 2024 End: December 16, 2024 Dr. Sharif Ramos MD Attending physician Active Start: December 16, 2024 End: December 16, 2024 Team Status: Active Member Role/Relationship Status Dates Dr. Sharif Ramos MD Primary care physician Activ e Start: December 31, 2024 Sharif CARRENO MD Attending physician Active Start: December 31, 2024 Team Status: Active Member Role/Relationship Status Dates Dr. Sharif Ramos MD Primary care physician Activ e Start: January 07, 2025 Sharif CARRENO MD Attending physician Active Start: January 07, 2025 Team Status: Inactive Member Role/Relationship Status Dates Dr. Sharfi Ramos MD Primary care physician Activ e Start: January 07, 2025 End: January 07, 2025 Lashae Garner PLASTIC MOLDING OPERATOR, PLASTIC MOLDING OPERATOR-C Attending physician Active Start: January 07, 2025 End: January 07, 2025 Team Status: Inactive Member Role/Relationship Status Dates Dr. Sharif Ramos MD Primary care physician Activ e Start: January 15, 2025 End: January 15, 2025 Dr. Andrea Hawthorne MD Attending physician Active Start: January 15, 2025 End: January 15, 2025 Team Status: Active Member Role/Relationship Status Dates Dr. Sharif Ramos MD Primary care physician Activ e Start: January 21, 2025 Sharif CARRENO MD Attending physician Active Start: January 21, 2025 Team Status: Inactive Member Role/Relationship Status Dates Dr. Sharif Ramos MD Primary care physician Activ e Start: February 10, 2025 End: February 10, 2025 Dr. Sharif Ramos MD Attending physician Active Start: February 10, 2025 End: February 10, 2025 Team Status: Active Member Role/Relationship Status Dates Dr. Sharif Ramos MD Primary care physician Activ e Start: February 18, 2025 Sharif CARRENO MD Attending physician Active Start: February 18, 2025 Goals (unrecognized section and content) Goals [...] ized section and content) DATE CREATED AUTHOR 04/05/2025 [facility] FOR RECORDS PERTAINING TO PATIENTS WHO [...] BE BASED ON THE PRIMARY CLINICAL RECORDS. [facility] [employer] [facility]. provides no warranty or guarantee of the accuracy or completeness of information in this document.
[2025-04-09 08:57] LABS: Hematocrit 37.7 % (37-47); Hemoglobin 12.0 g/dL (12.0-15.0); Immature Granulocytes Count 0.060 X10^3/uL (0.0-0.0); Mean Corp Hgb Conc 31.8 g/dL (32-36); Mean Corpuscular Volume 98.4 fL (81-99); Mean Platelet Vol. 10.4 fl (6.2-12.0); NRBC Flagged by Analyzer 0 % (0-5); Platelet Count 319 K/mm3 (150-450); RBC Distribution Width CV 13.1 % (11.6-14.6); RBC Distribution Width SD 46.8 fl (35.1-43.9); Red Blood Count 3.83 M/mm3 (4.2-5.4); White Blood Count 7.0 K/mm3 (4.4-11.0)
[2025-04-09 09:22] LABS: Anion Gap 8 (5-15); BUN 20 mg/dL (4-19); BUN/Creat Ratio 18.1 RATIO (10-20); Calcium,Total 8.5 mg/dL (7.6-11.0); Carbon Dioxide 25.4 mmol/L (21.0-32.0); Chloride 107 mmol/L (98-108); Glucose 108 mg/dL (70-99); Potassium 4.2 mmol/L (3.3-5.1)
== END ==
LOC: OLS.WHLEAS 05:00
PROVIDERS: PCP Internal Medicine; Visit Provider Internal Medicine
DX: R05.9 Cough, unspecified (principal); E11.22 Type 2 diabetes mellitus with diabetic chronic kidney disease; I50.22 Chronic systolic (congestive) heart failure; N18.32 Chronic kidney disease, stage 3b; I42.9 Cardiomyopathy, unspecified; I49.9 Cardiac arrhythmia, unspecified
CPT/HCPCS: 36415; 80048; 85025

== ENCOUNTER → 2025-04-22 05:00 | Outpatient (REF) | payer MEDICARE, MEDICAID, SELFPAY ==
--- OUTSIDE RECORDS SUMMARY | 2025-04-22 04:26 | XMS RPT_ITS | CCD ---
Author Organization [facility] Inform ion Partnership [facility] Care Team Providers Care Metal Caster Name Role Phone Dr. Grant Whitley Emergency [...] ZAZUETA, Dr. Mendez Referring Provider [phone] Jamar Isabel Attending Provider [phone] Rachel ZAZUETA, Sharif Primary Care Provider [facility] jamie Hawthorne MD, Dr. Mendez Attending Provider [phone] Rachel ZAZUETA, Dr. Olguin Attending Provider [phone] Rachel ZAZUETA, Sharif Attending Provider Unavailena Ramos MD, Sharif Referring Provider Unavailena METCALFCLashae Attending Provider Rachel ZAZUETA, Dr. Olguin Primary Care Provider Marine ZAZUETA, Dr. Mendez Attending Provider [phone] Marine ZAZUETA, Dr. Mendez Referring Provider [phone] Rachel ZAZUETA, Dr. Olguin Primary Care Provider Rachel ZAZUETA, Dr. Olguin Attending Provider [phone] Rachel ZAZUETA, Sharif Attending Provider Unavailena Hawthorne MD, Dr. Mendez Attending Provider [phone] Dr. Andrea Hawthorne MD Referring Provider [phone] Jamar Isabel Attending Provider [phone] Rachel ZAZUETA, Dr. Olguin Primary Care Provider Pascual ONEILL-CLashae Attending Provider Rachel ZAZUETA, Dr. Olguin Primary Care Physician Rachel ZAZUETA, Sharif Attending Physician Unavail marine Ramos MD, Dr. Olguin Attending Physician Pascual ONEILL-Lashae Almodovar Attending Physician Marine ZAZUETA, Dr. Mendez Attending Physician Sharif Michel Attending Ember e Sharif Ramos Primary Care Unavailable Oleghe OLS, Efewongbe Attending Unavailabl e Oleghe, Efewongbe Primary Care Unavailable Oleghe OLS, Efewongbe Primary Care Unavailabl e Jamar Isabel Attending Unavailable Oleghe, Efewongbe Primary Care Unavailable [place]ual DEBT MANAGEMENT COUNSELORLashae Attending Unavailable Oleghe OLS, Efewongbe Attending Unavailabl e Oleghe, Efewongbe Primary Care Unavailable Oleghe OLS, Efewongbe Attending Unavailabl e Oleghe OLS, Efewongbe Primary Care Unavailabl e Oleghe OLS, Efewongbe Attending Unavailabl e Oleghe, Efewongbe Primary Care Unavailable Oleghe OLS, Efewongbe Attending Unavailabl e Oleghe, Efewongbe Primary Care Unavailable [place]ual DEBT MANAGEMENT COUNSELOR, Lashae Attending Unavailable Oleghe, Efewongbe Primary Care Unavailable Oleghe, Efewongbe Primary Care Unavailable Oleghe, Efewongbe Attending Unavailable Oleghe, Efewongbe Primary Care Unavailable Marine, Andrea Attending Unavailable Oleghe, Efewongbe Primary Care Unavailable [place] DEBT MANAGEMENT COUNSELORLashae Attending Unavailable Oleghe, Efewongbe Primary Care Unavailable [...] Unavailable Oleghe, Efewongbe Primary Care Unavailable Marine, [facility] Attending Unavailable Marine, [facility] Referring Unavailable Oleghe, Efewongbe Attending Unavailable Oleghe, Efewongbe Primary Care Unavailable Oleghe OLS, Efewongbe Primary Care Unavailabl e Oleghe, Efewongbe Attending Unavailable Marine, Andrea Referring Unavailable Marine, [facility] Attending Unavailable Oleghe, Efewongbe Primary Care Unavailable Oleghe OLS, Efewongbe Attending Unavailabl e Oleghe, Efewongbe Primary Care Unavailable Oleghe OLS, Efewongbe Attending Unavailabl e Oleghe, Efewongbe Primary Care Unavailable Oleghe OLS, Efewongbe Attending Unavailabl e Oleghe OLS, Efewongbe Primary Care Unavailabl e Oleghe, Efewongbe Primary Care Unavailable [place] DEBT MANAGEMENT COUNSELORLashae Attending Unavailable Oleghe OLS, Efewongbe Primary Care Unavailabl e Oleghe OLS, Efewongbe Referring Unavailabl e Marine, Andrea Attending Unavailable Oleghe, Efewongbe Primary Care Unavailable Jose Jton DEBT MANAGEMENT COUNSELORLashae Attending Unavailable Oleghe OLS, Efewongbe Primary Care Unavailabl e Marine, Andrea Attending Unavailable [place] DEBT MANAGEMENT COUNSELORLashae Attending Unavailable Oleghe OLS, Efewongbe Primary Care Unavailabl e Oleghe OLS, Efewongbe Primary Care Unavailabl e Oleghe, Efewongbe Attending Unavailable Oleghe, Efewongbe Primary Care Unavailable Jamar Isabel Attending Unavailable Oleghe, Efewongbe Primary Care Unavailable Marine, [facility] Referring Unavailable Marine, [facility] Attending Unavailable Oleghe, Efewongbe Primary Care Unavailable Oleghe, Efewongbe Attending Unavailable Oleghe, Efewongbe Primary Care Unavailable Jamar Isabel Attending Unavailable Oleghe OLS, Efewongbe Attending Unavailabl e Oleghe, Efewongbe Primary Care Unavailable Oleghe OLS, Efewongbe Attending Unavailabl e Oleghe, Efewongbe Primary Care Unavailable Allergies Allergy Classification Reported Allergen(s) Allergy Type Date of Onset Reaction(s) Facility (13 sources) [id number]-Txc Reductase Inhibitor Propensity to adverse reactions 4 muscle aches [facility] (1 source) [id number]-Wjm-Bfr Reductase Inhibitor Drug allergy (disorder) 5 [facility] Repository Medications Current Medications Medication Drug Class(es) [...] morning docusate sodium 50 mg / sennosides, fci 8.6 mg oral tablet (12 sources) Start: [...] Active 1000 MG PO EVERY 8 HOURS October 08, 2023 12:00am apixaban 5 mg oral tablet (12 sources) Factor Xa Inhibitor Start: 10-08-2023 End: 10-23-2023 take 2.5 mg by mouth twice daily Apixaban (Eliquis) 5 mg Tablet Discontinued 2.5 mg PO TWICE A DAY 0 0 October 08, 2023 12:00am October 22, [...] arrhythmia, unspecified; Translations: [Cardiac arrhythmia, unspecified] Onset: 04-03-2025 Chronic Chronic kidney disease (11 sources) Chronic kidney disease stage 3B ; Translations: [Stage 3b chronic kidney disease] 06-09-2024 Chronic Chronic kidney disease (2 sources) Chronic kidney disease; Translations: [Chronic kidney disease, stage 3b] Onset: 04-03-2025 Conduction disorders (20 sources) 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 [employer]INEER-O ICM; NOT MRI compatible Congestive heart failure; [...] mellitus with diabetic chronic kidney disease] Onset: 04-03-2025 Chronic Disorders of lipid metabolism (14 sources) [...] sources) Cardiomyopathy, unspecified; Translations: [Cardiomyopathy, unspecified] Onset: 04-03-2025 Chronic Superficial injury; contusion (15 sources) Contusion [...] on 02-18-2025 TSH Qn 4.180 uIU/mL 0.300-4.200 [facility] Magnesium measurement (mass/ volume)Ordered By: Sharif Ramos on 01-21-2025 Magnesium (Unsp spec) [Mass/Vol] 2.5 mg/dL High 1.5-2.2 [facility] Iron measurement (mass/mass) Ordered By: Sharif Ramos on 01-07-2025 Iron (Unsp spec) [Mass/Mass] 49 ug/dL Low 50-170 [facility] Magnesium measurement (mass/ volume)Ordered By: Sharif Ramos on 01-07-2025 Magnesium (Unsp spec) [Mass/Vol] 2.8 mg/dL High 1.5-2.2 [facility] No Panel InformationOrdered By: Sharif Ramos on 01-07-2025 Unsaturated Iron Binding Capacity 175 ug/dL Low 228-428 [facility] Comment on above: Hemolysis present, R esults could be affected. Serum or plasma ferritin brooke surement (mass/volume)Ordered By: Sharif Ramos on 01-07-2025 Ferritin [Mass/Vol] 151 ng/mL 22-378 [facility] [place] Serum or plasma iron saturat ion measurement (mass fraction)Ordered By: Sharif Ramos on 01-07-2025 Iron saturation [Mass fraction] 21.9 % 13-59 [facility] Comment on above: Previous reported re sult: 22.0 %Edited by: NORMA on 01/07/25:0920 TSH DL <= 0.005 mIU/L QnOrde red By: Sharif Ramos on 01-07-2025 TSH Qn 6.650 uIU/mL High 0.300-4.200 [facility] Anion gap in Serum or Plasma Ordered By: Sharif Ramos on 12-31-2024 Anion gap [Moles/Vol] 10 mmol/L 5-15 [facility] BUN/creatinine ratioOrdered By: Sharif Ramos on 12-31-2024 Urea nitrogen/Creatinine [Mass ratio] 23.3 mg/mg High 10-20 [facility] Carbon dioxide, total [Moles /volume] in Central venous bloodOrdered By: Sharif Ramos on 12-31-2024 CO2 [Moles/Vol] 23.9 mmol/L 21.0-32.0 [facility] Chloride assayOrdered By: Cristina Ramos on 12-31-2024 Chloride [Moles/Vol] 106 mmol/L 98-108 [facility] Glomerular filtration rate ( GFR) estimation/1.73 sq m using serum, plasma, or whole bOrdered By: Sharif Ramos on 12-31-2024 GFR/1.73 sq M.predicted among non-blacks MDRD (S/P/Bld) [Vol rate/Area] 52 mL/min/{1.73_m2} Low >60 [facility] Comment on above: mL/min/1.73m2 CKD-EP I Creatinine Equation (2020) Magnesium measurement (mass/ volume)Ordered By: Sharif Ramos on 12-31-2024 Magnesium (Unsp spec) [Mass/Vol] 2.4 mg/dL High 1.5-2.2 [facility] Potassium measurement (mass/ volume)Ordered By: Sharif Ramos on 12-31-2024 Potassium (Unsp spec) [Mass/Vol] 4.0 mmol/L 3.3-5.1 [facility] Serum creatinine measurement (mass/volume)Ordered By: Sharif Ramos on 12-31-2024 Creatinine [Mass/Vol] 1.04 mg/dL 0.70-1.20 [facility] Serum glucose measurement (m ass/volume)Ordered By: Sharif Ramos on 12-31-2024 Glucose [Mass/Vol] 103 mg/dL High 70-[address] [facility] Serum or plasma calcium clarke urement (mass/volume)Ordered By: Cristinarichie Pereiraroxannagregg on 12-31-2024 Calcium [Mass/Vol] 8.9 mg/dL 7.6-11.[address] [facility] Serum or plasma urea nitroge n measurement (mass/volume)Ordered By: Sharif Pereiraroxannagregg on 12-31-2024 Urea nitrogen [Mass/Vol] 24 mg/dL High 4-19 [facility] Sodium levelOrdered By: Cristinakarson omalley Randallroxannagregg on 12-31-2024 Sodium [Moles/Vol] 140 mmol/L 133-[address] [facility] Absolute lymphocyte countOrd ered By: Snowzanemike Pereiraroxannagregg on 12-03-2024 Lymphocytes Auto (Unsp spec) [#/Vol] 1.35 10*3/uL 0.83-4.51 [facility] Absolute neutrophil countOrd ered By: Sharif Pereiraroxannagregg on 12-03-2024 Neutrophils (Bld) [#/Vol] 3.5 10*3/uL 2.0-7.7 [facility] Anion gap in Serum or Plasma Ordered By: Sharif Ramos on 12-03-2024 Anion gap [Moles/Vol] 11 mmol/L 5-15 [facility] Automated lymphocyte count a s percentage of total leukocytesOrdered By: Sharif Ramos on 12-03-2024 Lymphocytes/100 WBC Auto (Unsp spec) 23.2 % 19-41 [facility] BUN/creatinine ratioOrdered By: Sharif Ramos on 12-03-2024 Urea nitrogen/Creatinine [Mass ratio] 29.1 mg/mg High 10-20 [facility] Basophil percentageOrdered B y: Snowzanemike Ramos on 12-03-2024 Basophils/100 WBC (Bld) 0.3 % 0-1 [facility] Carbon dioxide, total [Moles /volume] in Central venous bloodOrdered By: Sharif Ramos on 12-03-2024 CO2 [Moles/Vol] 24.7 mmol/L 21.0-32.0 [facility] Chloride assayOrdered By: Cristina Ramos on 12-03-2024 Chloride [Moles/Vol] 105 mmol/L 98-108 [facility] Eosinophil percentageOrdered By: Sharif Ramos on 12-03-2024 Eosinophils/100 WBC (Bld) 7.0 % High 0-5 [facility] Erythrocyte distribution wid th ratioOrdered By: Sharif Ramos on 12-03-2024 Erythrocyte distribution width (RBC) [Ratio] 13.1 % 11.6-14.6 [facility] Erythrocyte distribution wid th standard deviationOrdered By: Sharif aRmos on 12-03-2024 Erythrocyte distribution width (RBC) [Ratio] 46.8 fl High 35.1-43.9 [facility] Glomerular filtration rate ( GFR) estimation/1.73 sq m using serum, plasma, or whole bOrdered By: Sharif Ramos on 12-03-2024 GFR/1.73 sq M.predicted among non-blacks MDRD (S/P/Bld) [Vol rate/Area] 47 mL/min/{1.73_m2} Low >60 [facility] Comment on above: mL/min/1.73m2 CKD-EP I Creatinine Equation (2020) Hematocrit Auto (Bld) [Volum e fraction]Ordered By: Sharif Ramos on 12-03-2024 Hematocrit (Bld) [Volume fraction] 40.2 % 37-47 [facility] Hemoglobin measurementOrdere d By: Sharif Ramos on 12-03-2024 Hemoglobin (Bld) [Mass/Vol] 13.1 g/dL 12.0-15.0 [facility] Immature granulocytes/100 WB C Auto (Bld)Ordered By: Sharif Ramos on 12-03-2024 Immature granulocytes/100 WBC (Bld) 0.300 % 0.0-0.9 [facility] Comment on above: IG% - Immature Granu locytes (promyelocytes, myelocytes and metamyelocytes) > 1% indicates that a LEFT SHIFT is Present. MCV (mean corpuscular volume ) determinationOrdered By: Sharif Ramos on 12-03-2024 MCV (RBC) [Entitic vol] 96.9 fL 81-99 [facility] Mean corpuscular hemoglobin (MCH) determinationOrdered By: Sharif Ramos on 12-03-2024 MCH (RBC) [Entitic mass] 31.6 pg 27.0-32.0 [facility] Mean corpuscular hemoglobin concentration (MCHC) determinationOrdered By: Sharif Ramos on 12-03-2024 MCHC (RBC) [Mass/Vol] 32.6 g/dL 32-36 [facility] Mean platelet volume determi nationOrdered By: Sharif Ramos on 12-03-2024 Platelet mean volume (Bld) [Entitic vol] 10.4 fL 6.2-12.0 [facility] Monocyte percentageOrdered B y: Sharif Ramos on 12-03-2024 Monocytes/100 WBC (Bld) 9.6 % 0-10 [facility] Neutrophil percentageOrdered By: Sharif Ramos on 12-03-2024 Neutrophils/100 WBC (Bld) 59.6 % 47-70 [facility] Nucleated red blood cell per centageOrdered By: Sharif Ramos on 12-03-2024 Nucleated RBC/100 WBC (Bld) [Ratio] 0 % 0-5 [facility] Platelet countOrdered By: Cristina lammike Ramos on 12-03-2024 Platelets (Bld) [#/Vol] 317 10*3/uL 150-450 [facility] Potassium measurement (mass/ volume)Ordered By: Sharif Ramos on 12-03-2024 Potassium (Unsp spec) [Mass/Vol] 4.0 mmol/L 3.3-5.1 [facility] RBC Auto (Bld) [#/Vol]Ordere d By: Sharif Ramos on 12-03-2024 RBC (Bld) [#/Vol] 4.15 10*6/uL Low 4.2-5.4 [facility] [place] Serum creatinine measurement (mass/volume)Ordered By: Sharif Ramos on 12-03-2024 Creatinine [Mass/Vol] 1.13 mg/dL 0.70-1.20 [facility] Serum glucose measurement (m ass/volume)Ordered By: Snowzanemike Pereiraroxannagregg on 12-03-2024 Glucose [Mass/Vol] 102 mg/dL High 70-[address] [facility] Serum or plasma calcium clarke urement (mass/volume)Ordered By: Snowzanemike Pereiraroxannagregg on 12-03-2024 Calcium [Mass/Vol] 9.1 mg/dL 7.6-11.[address] [facility] Serum or plasma urea nitroge n measurement (mass/volume)Ordered By: Sharif Ramos on 12-03-2024 Urea nitrogen [Mass/Vol] 33 mg/dL High 4-19 [facility] Sodium levelOrdered By: Snow shahram Randallroxannagregg on 12-03-2024 Sodium [Moles/Vol] 141 mmol/L 133-[address] [facility] White blood cell (WBC) count Ordered By: Sharif Ramos on 12-03-2024 WBC (Bld) [#/Vol] 5.8 10*3/uL 4.4-11.[address] [facility] Sodium levelOrdered By: Snow shahram Rachel on 11-05-2024 Sodium [Moles/Vol] 140 mmol/L 133-[address] [facility] Magnesium measurement (mass/ volume)Ordered By: Sharif Ramos on 10-08-2024 Magnesium (Unsp spec) [Mass/Vol] 2.2 mg/dL 1.5-2.2 [facility] TSH DL <= 0.005 mIU/L QnOrde red By: Sharif Ramos on 10-08-2024 TSH Qn 1.270 uIU/mL 0.300-4.200 [facility] Absolute lymphocyte countOrd ered By: Sharif Ramos on 08-13-2024 Lymphocytes Auto (Unsp spec) [#/Vol] 1.27 10*3/uL 0.83-4.51 [facility] Absolute neutrophil countOrd ered By: Sharif Ramos on 08-13-2024 Neutrophils (Bld) [#/Vol] 2.4 10*3/uL 2.0-7.7 [facility] Anion gap in Serum or Plasma Ordered By: Sharif Ramos on 08-13-2024 Anion gap [Moles/Vol] 12 mmol/L 5-15 [facility] Automated lymphocyte count a s percentage of total leukocytesOrdered By: Sharif Ramos on 08-13-2024 Lymphocytes/100 WBC Auto (Unsp spec) 29.1 % 19-41 [facility] BUN/creatinine ratioOrdered By: Sahrif Ramos on 08-13-2024 Urea nitrogen/Creatinine [Mass ratio] 27.5 mg/mg High 10-20 [facility] Basophil percentageOrdered B y: Sharif Ramos on 08-13-2024 Basophils/100 WBC (Bld) 0.5 % 0-1 [facility] Bilirubin Test strip Ql (U)O rdered By: Sharif Ramos on 08-13-2024 Bilirubin Ql (U) Negative Negative [facility] Bilirubin, totalOrdered By: Sharif Ramos on 08-13-2024 Bilirubin [Mass/Vol] 0.41 mg/dL 0.00-1.30 [facility] Carbon dioxide, total [Moles /volume] in Central venous bloodOrdered By: Sharif Ramos on 08-13-2024 CO2 [Moles/Vol] 23.4 mmol/L 21.0-32.0 [facility] Chloride assayOrdered By: Cristina Ramos on 08-13-2024 Chloride [Moles/Vol] 117 mmol/L High 98-108 [facility] Eosinophil percentageOrdered By: Sharif Ramos on 08-13-2024 Eosinophils/100 WBC (Bld) 7.8 % High 0-5 [facility] Erythrocyte distribution wid th (RBC) [Ratio]Ordered By: Sharif Ramos on 08-13-2024 Erythrocyte distribution width (RBC) [Entitic vol] 45.1 fL High 35.1-43.9 [facility] Erythrocyte distribution wid th ratioOrdered By: Sharif Ramos on 08-13-2024 Erythrocyte distribution width (RBC) [Ratio] 12.8 % 11.6-14.6 [facility] Erythrocyte distribution wid th standard deviationOrdered By: Sharif Ramos on 08-13-2024 Erythrocyte distribution width (RBC) [Ratio] 45.1 fl High 35.1-43.9 [facility] GFR/1.73 sq M.predicted lisbet g non-blacks MDRD (S/P/Bld) [Vol rate/Area]Ordered By: Sharif Ramos on 08-13-2024 Estimated GFR (MDRD) Non-Af Amer 52 Low >60 [facility] Comment on above: mL/min/1.73m2 CKD-EP I Creatinine Equation (2020) Glomerular filtration rate ( GFR) estimation/1.73 sq m using serum, plasma, or whole bOrdered By: Sharif Ramos on 08-13-2024 GFR/1.73 sq M.predicted among non-blacks MDRD (S/P/Bld) [Vol rate/Area] 52 mL/min/{1.73_m2} Low >60 [facility] Comment on above: mL/min/1.73m2 CKD-EP I Creatinine Equation (2020) Glucose Ql (U)Ordered By: Cristina Ramos on 08-13-2024 Glucose (U) [Mass/Vol] 1000 mg/dL High Normal [facility] Hematocrit Auto (Bld) [Volum e fraction]Ordered By: Sharif Ramos on 08-13-2024 Hematocrit (Bld) [Volume fraction] 35.9 % Low 37-47 [facility] Hemoglobin measurementOrdere d By: Sharif Ramos on 08-13-2024 Hemoglobin (Bld) [Mass/Vol] 11.8 g/dL Low 12.0-15.0 [facility] Immature granulocytes/100 WB C Auto (Bld)Ordered By: Sharif Ramos on 08-13-2024 Immature granulocytes/100 WBC (Bld) 0.200 % 0.0-0.9 [facility] Comment on above: IG% - Immature Granu locytes (promyelocytes, myelocytes and metamyelocytes) > 1% indicates that a LEFT SHIFT is Present. Ketones Test strip Ql (U)Ord ered By: Sharif Ramos on 08-13-2024 Ketones Ql (U) Negative Negative [facility] Laboratory - Chemistry and C hemistry - challengeOrdered By: Sharif Ramos on 08-13-2024 AST [Catalytic activity/Vol] 16 U/L <32 [facility] Lymphocytes Auto (Unsp spec) [#/Vol]Ordered By: Sharif Ramos on 08-13-2024 Lymphocytes (Bld) [#/Vol] 1.27 10*3/uL 0.83-4.51 [facility] Lymphocytes/100 WBC Auto (Un sp spec)Ordered By: Sharif Ramos on 08-13-2024 Lymphocytes/100 WBC (Bld) 29.1 % 19-41 [facility] MCV (mean corpuscular volume ) determinationOrdered By: Sharif Ramos on 08-13-2024 MCV (RBC) [Entitic vol] 96.2 fL 81-99 [facility] Mean corpuscular hemoglobin (MCH) determinationOrdered By: Sharif Ramos on 08-13-2024 MCH (RBC) [Entitic mass] 31.6 pg 27.0-32.0 [facility] Mean corpuscular hemoglobin concentration (MCHC) determinationOrdered By: Sharif Ramos on 08-13-2024 MCHC (RBC) [Mass/Vol] 32.9 g/dL 32-36 [facility] Mean platelet volume determi nationOrdered By: Sharif Ramos on 08-13-2024 Platelet mean volume (Bld) [Entitic vol] 10.2 fL 6.2-12.0 [facility] Monocyte percentageOrdered B y: Sharif Ramos on 08-13-2024 Monocytes/100 WBC (Bld) 8.5 % 0-10 [facility] Neutrophil percentageOrdered By: Sharif Ramos on 08-13-2024 Neutrophils/100 WBC (Bld) 53.9 % 47-70 [facility] Nitrite Test strip Ql (U)Ord ered By: Sharif Ramos on 08-13-2024 Nitrite Ql (U) Negative Negative [facility] Nucleated red blood cell per centageOrdered By: Sharif Ramos on 08-13-2024 Nucleated RBC/100 WBC (Bld) [Ratio] 0 % 0-5 [facility] Platelet countOrdered By: Cristina Ramos on 08-13-2024 Platelets (Bld) [#/Vol] 292 10*3/uL 150-450 [facility] Potassium (Unsp spec) [Mass/ Vol]Ordered By: Sharif Ramos on 08-13-2024 Potassium [Moles/Vol] 3.8 mmol/L 3.3-5.1 [facility] Potassium measurement (mass/ volume)Ordered By: Sharif Ramos on 08-13-2024 Potassium (Unsp spec) [Mass/Vol] 3.8 mmol/L 3.3-5.1 [facility] Protein Test strip Ql (U)Ord ered By: Sharif Ramos on 08-13-2024 Protein Ql (U) 15 mg/dl High Negative [facility] RBC Auto (Bld) [#/Vol]Ordere d By: Sharif Ramos on 08-13-2024 RBC (Bld) [#/Vol] 3.73 10*6/uL Low 4.2-5.4 [facility] [place] Serum creatinine measurement (mass/volume)Ordered By: Sharif Ramos on 08-13-2024 Creatinine [Mass/Vol] 1.03 mg/dL 0.70-1.20 [facility] Serum globulin measurementOr dered By: Sharif Ramos on 08-13-2024 Globulin (S) [Mass/Vol] 2.3 g/dL 2.2-4.2 [facility] Serum glucose measurement (m ass/volume)Ordered By: Sharif Ramos on 08-13-2024 Glucose [Mass/Vol] 88 mg/dL 70-[address] [facility] Serum or plasma alanine contreras otransferase (ALT) measurementOrdered By: Sharif Ramos on 08-13-2024 ALT [Catalytic activity/Vol] 8 U/L <35 [facility] Serum or plasma albumin clarke urement (mass/volume)Ordered By: Sharif Ramos on 08-13-2024 Albumin [Mass/Vol] 3.3 g/dL Low 3.4-4.[address] [facility] Serum or plasma albumin/glob ulin mass ratioOrdered By: Sharif Ramos on 08-13-2024 Albumin/Globulin [Mass ratio] 1.4 {ratio} 0.9-2.4 [facility] Serum or plasma alkaline timi sphatase measurementOrdered By: Sharif Ramos on 08-13-2024 ALP [Catalytic activity/Vol] 64 U/L 35-104 [facility] Serum or plasma calcium clarke urement (mass/volume)Ordered By: Sharif Ramos on 08-13-2024 Calcium [Mass/Vol] 8.7 mg/dL 7.6-11.[address] [facility] Serum or plasma urea nitroge n measurement (mass/volume)Ordered By: Sharif Ramos on 08-13-2024 Urea nitrogen [Mass/Vol] 28 mg/dL High 4-19 [facility] Sodium levelOrdered By: Snow Ramos on 08-13-2024 Sodium [Moles/Vol] 153 mmol/L High 133-[address] [facility] Total proteinOrdered By: Milton Ramos on 08-13-2024 Protein [Mass/Vol] 5.6 g/dL Low 5.9-8.[address] [facility] Urine blood detectionOrdered By: Sharif Ramos on 08-13-2024 Urine Occult Blood Negative Negative [facility] Urine clarityOrdered By: Milton Ramos on 08-13-2024 Clarity (U) Sl. Cloudy Clear [facility] Urine color determinationOrd ered By: Sharif Ramos on 08-13-2024 Color (U) Yellow Yellow [facility] Urine cultureOrdered By: Milton Ramos on 08-13-2024 Bacteria identified Cx Nom (U) Positive Abnormal [facility] Urine glucose detectionOrder ed By: Sharif Ramos on 08-13-2024 Glucose Ql (U) 1000 mg/dl High Normal [facility] Urine leukocyte esterase det ection by dipstickOrdered By: Sharif Ramos on 08-13-2024 Leukocyte esterase Test strip Ql (U) Negative Negative [facility] Urine pHOrdered By: Mary gregg Randalljennifer on 08-13-2024 pH (U) 6.0 [pH] 5.0 - 8.0 [facility] Urine specific gravity measu rementOrdered By: Sharif Pereiraorxannagregg on 08-13-2024 Specific gravity (U) [Rel density] 1.020 1.002-1.030 [facility] Urine urobilinogen measureme ntOrdered By: Sharif Pereiraroxannagregg on 08-13-2024 Urobilinogen Ql (U) Normal mg/dl Normal [facility] Urobilinogen Ql (U)Ordered B y: Evonmike Pereiraroxannagregg on 08-13-2024 Urine Urobilinogen Normal mg/dl Normal [facility] White blood cell (WBC) count Ordered By: Sharif Pereiraroxannagregg on 08-13-2024 WBC (Bld) [#/Vol] 4.4 10*3/uL 4.4-11.[address] [facility] Pacemaker Checkon 07-09-2024 Pacemaker Check [facility] [place] [address] Pacemaker Check Date of Service: 07/09/24 141 MR#: [id number] Acct: [id number] Name: SHERRIE LOZANO Rep #: [id number] : 1935 From: Abby Butts Age/Sex: 89/F Location: [facility] [place] Status: Signed Billing Codes ICD Device Billin ICD Dev Prog Eval, Multi Assessment and Plan Assessment and Plan (1) Ischemic cardiomyopathy: Status: Acute (2) ICD (implantable cardioverter-defibrill ator) in place: Status: Acute (3) CHF (congestive heart failure): Status: Acute 07/09/24 1413 Date Abby Butts Cosigner Signature: Date (if applicable) CC: Normal [facility] Direct serum free thyroxine (FT4) measurementOrdered By: Sharif Ramos on 06-26-2024 Free T4 [Mass/Vol] 1.34 ng/dL 0.76-1.[address] [facility] TSH QnOrdered By: Sharif Ramos on 06-26-2024 Thyroid Stimulating Hormone (TSH) 2.090 uIU/mL 0.358-3.740 [facility] 12 Lead EKG performed by [facility] on 06-18-2024 12 Lead EKG performed by [address] [address] 12 Lead EKG performed by [facility] 06/18/24 1250 MR#: [id number] Acct: [id number] Name: SHERRIE LOZANO Rep #: [id number] : 1935 89 From: Andrea Hawthorne MD Attending Dr: Dr. Andrea Hawthorne MD Status: DEP A MB Ordering Dr: Andrea Hawthorne MD Date: 06/18/24 Location: [facility] [place] Sex: F C Admitted: BMS/12 Lead EKG performed by [facility] ECG Report Interpretation ----Electronic ventricular pacemaker Pacemaker ECG, No further analysis Electronically signed on 06/23/2024 at 08:30 by Andrea Hawthorne [place] Software Version [id number] 06/23/24 0833 Date Andrea Hawthorne MD CC: Sharif Ramos MD Date Dictated: 06/18/241249 Date Transcribed: 06/18/241249 Bookkeeping Service Sales Agent: [place] Signed Normal [facility] Cardiology Visit Reporton Cardiology Visit Report [facility] [address] [place], [place] [address] OFFICE VISIT Date of Service: 06/18/24 MR#: [id number] Acct: [id number] Name: SHERRIE LOZANO Rep #: [id number] : 1935 Provider: Dr. Andrea Hawthorne MD Age/Sex: 89/F Location: [facility] Status: Signed HPI HPI History of Present Illness Details: Pleasant 89-year-old lady who has recently relocated from [facility] here. 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 Normal [facility] Absolute neutrophil countOrd ered By: Sharif Ramos on 06-06-2024 Neutrophils (Bld) [#/Vol] 3.6 10*3/uL 2.0-7.7 [facility] Basophil percentageOrdered B y: Sharif Ramos on 06-06-2024 Basophils/100 WBC (Bld) 0.5 % 0-1 [facility] Blood urea nitrogen (BUN)/cr eatinine ratioOrdered By: Sharif Ramos on 06-06-2024 Urea nitrogen/Creatinine [Mass ratio] 26.6 mg/mg High 10-20 [facility] Carbon dioxide measurementOr dered By: Sharif Ramos on 06-06-2024 CO2 [Moles/Vol] 25.0 mmol/L 21.0-32.0 [facility] Chloride measurementOrdered By: Sharif Ramos on 06-06-2024 Chloride [Moles/Vol] 110 mmol/L High 98-107 [facility] Eosinophil percentageOrdered By: Sharif Ramos on 06-06-2024 Eosinophils/100 WBC (Bld) 6.2 % High 0-5 [facility] Erythrocyte distribution wid th (RBC) [Ratio]Ordered By: Sharif Ramos on 06-06-2024 Erythrocyte distribution width (RBC) [Entitic vol] 48.0 fL High 35.1-43.9 [facility] Erythrocyte distribution wid th ratioOrdered By: richie Ramos on 06-06-2024 Erythrocyte distribution width (RBC) [Ratio] 13.2 % 11.6-14.6 [facility] Estimated glomerular filtrat ion rate (GFR) AmericanOrdered By: Sharif Ramos on 06-06-2024 Estimated GFR (MDRD) Amer 61 mL/min >60 [facility] Comment on above: GFR Calc Glomerular filtration rate ( GFR) estimationOrdered By: Sharif Ramos on 06-06-2024 Estimated GFR (MDRD) Non-Af Amer 50 mL/min Low >60 [facility] Comment on above: Non- GFR Calc Glucose measurementOrdered B y: Sharif Ramos on 06-06-2024 Glucose [Mass/Vol] 98 mg/dL 74-[address] [facility] Hematocrit Auto (Bld) [Volum e fraction]Ordered By: [facility] on 06-06-2024 Hematocrit (Bld) [Volume fraction] 39.7 % 37-47 [facility] Hemoglobin measurementOrdere d By: Sharif Ramos on 06-06-2024 Hemoglobin (Bld) [Mass/Vol] 12.9 g/dL 12.0-15.0 [facility] Immature granulocytes/100 WB C Auto (Bld)Ordered By: richie Ramos on 06-06-2024 Immature granulocytes/100 WBC (Bld) 0.300 % 0.0-0.9 [facility] Comment on above: IG% - Immature Granu locytes (promyelocytes, myelocytes and metamyelocytes) > 1% indicates that a LEFT SHIFT is Present. Lymphocytes Auto (Unsp spec) [#/Vol]Ordered By: karsonaccomacmike Ramos on 06-06-2024 Lymphocytes (Bld) [#/Vol] 1.31 10*3/uL 0.83-4.51 [facility] Lymphocytes/100 WBC Auto (Un sp spec)Ordered By: Sharif Ramos on 06-06-2024 Lymphocytes/100 WBC (Bld) 22.4 % 19-41 [facility] MCV (mean corpuscular volume ) determinationOrdered By: Sharif Ramos on 06-06-2024 MCV (RBC) [Entitic vol] 99.0 fL 81-99 [facility] Mean corpuscular hemoglobin (MCH) determinationOrdered By: Sharif Ramos on 06-06-2024 MCH (RBC) [Entitic mass] 32.2 pg High 27.0-32.0 [facility] Mean corpuscular hemoglobin concentration (MCHC) determinationOrdered By: Sharif Ramos on 06-06-2024 MCHC (RBC) [Mass/Vol] 32.5 g/dL 32-36 [facility] Mean platelet volume determi nationOrdered By: Sharif Ramos on 06-06-2024 Platelet mean volume (Bld) [Entitic vol] 10.4 fL 6.2-12.0 [facility] Monocyte percentageOrdered B y: Sharif Ramos on 06-06-2024 Monocytes/100 WBC (Bld) 9.2 % 0-10 [facility] Neutrophil percentageOrdered By: Sharif Ramos on 06-06-2024 Neutrophils/100 WBC (Bld) 61.4 % 47-70 [facility] Nucleated red blood cell per centageOrdered By: Sharif Ramos on 06-06-2024 Nucleated RBC/100 WBC (Bld) [Ratio] 0 % 0-5 [facility] Platelet countOrdered By: Cristina Ramos on 06-06-2024 Platelets (Bld) [#/Vol] 328 10*3/uL 150-450 [facility] Potassium measurementOrdered By: Sharif Ramos on 06-06-2024 Potassium [Moles/Vol] 4.1 mmol/L 3.5-5.1 [facility] RBC Auto (Bld) [#/Vol]Ordere d By: Sharif Ramos on 06-06-2024 RBC (Bld) [#/Vol] 4.01 10*6/uL Low 4.2-5.4 [facility] Serum anion gap measurementO rdered By: Sharif Ramos on 06-06-2024 Anion gap [Moles/Vol] 7 mmol/L 5-15 [facility] Serum or plasma calcium clarke urement (mass/volume)Ordered By: Sharif Ramos on 06-06-2024 Calcium [Mass/Vol] 9.2 mg/dL 8.5-10.[address] [facility] Serum or plasma creatinine m easurement (mass/volume)Ordered By: Sharif Ramos on 06-06-2024 Creatinine [Mass/Vol] 1.09 mg/dL High 0.55-1.02 [facility] Comment on above: The validity of the calculated GFR & GFRAA in patients over 70 years has not been determined. Clinical correlation is essential. Serum or plasma urea nitroge n measurement (mass/volume)Ordered By: Sharif Ramos on 06-06-2024 Urea nitrogen [Mass/Vol] 29 mg/dL High 7-18 [facility] Sodium levelOrdered By: Snow Ramos on 06-06-2024 Sodium [Moles/Vol] 142 mmol/L 136-[address] [facility] White blood cell (WBC) count Ordered By: Sharif Ramos on 06-06-2024 WBC (Bld) [#/Vol] 5.8 10*3/uL 4.4-11.[address] [facility] Direct serum free thyroxine (FT4) measurementOrdered By: Sharif Ramos on 05-15-2024 Free T4 [Mass/Vol] 1.35 ng/dL 0.76-1.[address] [facility] TSH QnOrdered By: Sharif Ramos on 05-15-2024 Thyroid Stimulating Hormone (TSH) 2.920 uIU/mL 0.358-3.740 [facility] Absolute neutrophil countOrd ered By: Sharif Ramos on 05-07-2024 Neutrophils (Bld) [#/Vol] 3.2 10*3/uL 2.0-7.7 [facility] Basophil percentageOrdered B y: Sharif Ramos on 05-07-2024 Basophils/100 WBC (Bld) 0.4 % 0-1 [facility] Blood urea nitrogen (BUN)/cr eatinine ratioOrdered By: Sharif Ramos on 05-07-2024 Urea nitrogen/Creatinine [Mass ratio] 30.2 mg/mg High 10-20 [facility] Carbon dioxide measurementOr dered By: Sharif Ramos on 05-07-2024 CO2 [Moles/Vol] 26.0 mmol/L 21.0-32.0 [facility] Chloride measurementOrdered By: Sharif Ramos on 05-07-2024 Chloride [Moles/Vol] 113 mmol/L High 98-107 [facility] Eosinophil percentageOrdered By: Sharif Ramos on 05-07-2024 Eosinophils/100 WBC (Bld) 6.8 % High 0-5 [facility] Erythrocyte distribution wid th (RBC) [Ratio]Ordered By: Sharif Ramos on 05-07-2024 Erythrocyte distribution width (RBC) [Entitic vol] 49.6 fL High 35.1-43.9 [facility] Erythrocyte distribution wid th ratioOrdered By: Sharif Ramos on 05-07-2024 Erythrocyte distribution width (RBC) [Ratio] 13.6 % 11.6-14.6 [facility] Estimated glomerular filtrat ion rate (GFR) AmericanOrdered By: Sharif Ramos on 05-07-2024 Estimated GFR (MDRD) Amer 57 mL/min Low >60 [facility] Comment on above: GFR Calc Glomerular filtration rate ( GFR) estimationOrdered By: Sharif Ramos on 05-07-2024 Estimated GFR (MDRD) Non-Af Amer 47 mL/min Low >60 [facility] Comment on above: Non- GFR Calc Glucose measurementOrdered B y: Sharif Ramos on 05-07-2024 Glucose [Mass/Vol] 110 mg/dL High 74-[address] [facility] Comment on above: Fasting Glucose resu lt from 100 to 125 mg/dL suggests IMPAIRED HOMEOSTASIS per A.D.A. criteria. Hematocrit Auto (Bld) [Volum e fraction]Ordered By: Sharif Ramos on 05-07-2024 Hematocrit (Bld) [Volume fraction] 34.6 % Low 37-47 [facility] Hemoglobin measurementOrdere d By: Sharif Ramos on 05-07-2024 Hemoglobin (Bld) [Mass/Vol] 11.5 g/dL Low 12.0-15.0 [facility] Immature granulocytes/100 WB C Auto (Bld)Ordered By: Sharif Ramos on 05-07-2024 Immature granulocytes/100 WBC (Bld) 0.400 % 0.0-0.9 [facility] Comment on above: IG% - Immature Granu locytes (promyelocytes, myelocytes and metamyelocytes) > 1% indicates that a LEFT SHIFT is Present. Lymphocytes Auto (Unsp spec) [#/Vol]Ordered By: Sharif Ramos on 05-07-2024 Lymphocytes (Bld) [#/Vol] 1.10 10*3/uL 0.83-4.51 [facility] Lymphocytes/100 WBC Auto (Un sp spec)Ordered By: Sharif Ramos on 05-07-2024 Lymphocytes/100 WBC (Bld) 21.5 % 19-41 [facility] MCV (mean corpuscular volume ) determinationOrdered By: Sharif Ramos on 05-07-2024 MCV (RBC) [Entitic vol] 98.6 fL 81-99 [facility] Mean corpuscular hemoglobin (MCH) determinationOrdered By: Sharif Ramos on 05-07-2024 MCH (RBC) [Entitic mass] 32.8 pg High 27.0-32.0 [facility] Mean corpuscular hemoglobin concentration (MCHC) determinationOrdered By: Sharif Ramos on 05-07-2024 MCHC (RBC) [Mass/Vol] 33.2 g/dL 32-36 [facility] Mean platelet volume determi nationOrdered By: Sharif Ramos on 05-07-2024 Platelet mean volume (Bld) [Entitic vol] 10.6 fL 6.2-12.0 [facility] Monocyte percentageOrdered B y: Sharif Oleroxannagregg on 05-07-2024 Monocytes/100 WBC (Bld) 9.2 % 0-10 [facility] Neutrophil percentageOrdered By: Cristinakarsonshahram Randallroxannagregg on 05-07-2024 Neutrophils/100 WBC (Bld) 61.7 % 47-70 [facility] Nucleated red blood cell per centageOrdered By: Sharif Pereiraroxannagregg on 05-07-2024 Nucleated RBC/100 WBC (Bld) [Ratio] 0 % 0-5 [facility] Platelet countOrdered By: Cristina karsonshahram Ramos on 05-07-2024 Platelets (Bld) [#/Vol] 303 10*3/uL 150-450 [facility] Potassium measurementOrdered By: Sharif Ramos on 05-07-2024 Potassium [Moles/Vol] 4.1 mmol/L 3.5-5.1 [facility] RBC Auto (Bld) [#/Vol]Ordere d By: Snowzanemike Pereiraroxannagregg on 05-07-2024 RBC (Bld) [#/Vol] 3.51 10*6/uL Low 4.2-5.4 [facility] Serum anion gap measurementO rdered By: Snowzanemike Pereiraroxannagregg on 05-07-2024 Anion gap [Moles/Vol] 4 mmol/L Low 5-15 [facility] Serum or plasma calcium clarke urement (mass/volume)Ordered By: Sharif Ramos on 05-07-2024 Calcium [Mass/Vol] 9.0 mg/dL 8.5-10.[address] [facility] Serum or plasma creatinine m easurement (mass/volume)Ordered By: Sharif Ramos on 05-07-2024 Creatinine [Mass/Vol] 1.16 mg/dL High 0.55-1.02 [facility] Comment on above: The validity of the calculated GFR & GFRAA in patients over 70 years has not been determined. Clinical correlation is essential. Serum or plasma urea nitroge n measurement (mass/volume)Ordered By: Sharif Ramos on 05-07-2024 Urea nitrogen [Mass/Vol] 35 mg/dL High 7-18 [facility] Sodium levelOrdered By: Snow shahram Randalljennifer on 05-07-2024 Sodium [Moles/Vol] 143 mmol/L 136-[address] [facility] White blood cell (WBC) count Ordered By: Sharif Ramos on 05-07-2024 WBC (Bld) [#/Vol] 5.1 10*3/uL 4.4-11.[address] [facility] COVID-19 virus antigen assay Ordered By: Tammi Frost on 10-10-2023 SARS-CoV-2 (COVID-19) Ag IA.rapid Ql (Resp) [facility] Basophil percentageOrdered B y: Tammi Frost on 10-09-2023 Chloride [Moles/Vol] 109 mmol/L 98-107 [facility] Glucose [Mass/Vol] 100 mg/dL 74-[address] [facility] Comment on above: Fasting Glucose resu lt from 100 to 125 mg/dL suggests IMPAIRED HOMEOSTASIS per A.D.A. criteria. Hemoglobin (Bld) [Mass/Vol] 10.7 g/dL 12.0-15.0 [facility] Potassium [Moles/Vol] 4.4 mmol/L 3.5-5.1 [facility] Sodium [Moles/Vol] 139 mmol/L 136-[address] [facility] WBC (Bld) [#/Vol] 8.3 10*3/uL 4.4-11.[address] [facility] Determination of erythrocyte mean corpuscular volume (MCV)Ordered By: Tammi Frost on 10-09-2023 MCV (RBC) [Entitic vol] 95.8 fL 81-99 [facility] Erythrocyte distribution wid th ratioOrdered By: Tammi Frost on 10-09-2023 Erythrocyte distribution width (RBC) [Ratio] 16.0 % 11.6-14.6 [facility] Erythrocyte distribution wid th standard deviationOrdered By: Tammi Frost on 10-09-2023 Erythrocyte distribution width (RBC) [Entitic vol] 57.1 fL 35.1-43.9 [facility] Hematocrit Auto (Bld) [Volum e fraction]Ordered By: Tammi Frost on 10-09-2023 Hematocrit (Bld) [Volume fraction] 33.9 % 37-47 [facility] Laboratory - Chemistry and C hemistry - challengeOrdered By: Tammi Frost on 10-09-2023 CO2 [Moles/Vol] 27.0 mmol/L 21.0-32.0 [facility] Urea nitrogen/Creatinine [Mass ratio] 40.4 mg/mg 10-20 [facility] Laboratory - Hematology and Cell countsOrdered By: Tammi Frost on 10-09-2023 MCH (RBC) [Entitic mass] 30.2 pg 27.0-32.0 [facility] MCHC (RBC) [Mass/Vol] 31.6 g/dL 32-36 [facility] Platelet mean volume (Bld) [Entitic vol] 9.9 fL 6.2-12.0 [facility] Platelets (Bld) [#/Vol] 450 10*3/uL 150-450 [facility] No Panel InformationOrdered By: Tammi Frost on 10-09-2023 Estimated Creatinine Clearance Calc 26.00 ml/min [facility] Estimated GFR (MDRD) Amer 70 mL/min >60 [facility] Comment on above: GFR Calc Estimated GFR (MDRD) Non-Af Amer 58 mL/min >60 [facility] Comment on above: Non- GFR Calc RBC Auto (Bld) [#/Vol]Ordere d By: Tammi Frost on 10-09-2023 RBC (Bld) [#/Vol] 3.54 10*6/uL 4.2-5.4 [facility] Serum or plasma calcium clarke urement (mass/volume)Ordered By: Tammi Frost on 10-09-2023 Calcium [Mass/Vol] 8.7 mg/dL 8.5-10.[address] [facility] Serum or plasma creatinine m easurement (mass/volume)Ordered By: Tammi Frost on 10-09-2023 Creatinine [Mass/Vol] 0.97 mg/dL 0.55-1.02 [facility] Comment on above: The validity of the calculated GFR & GFRAA in patients over 70 years has not been determined. Clinical correlation is essential. Serum or plasma urea nitroge n measurement (mass/volume)Ordered By: Tammi Frost on 10-09-2023 Urea nitrogen [Mass/Vol] 39 mg/dL 7-18 [facility] Thin prep Papanicolaou smear with manual screeningOrdered By: Tammi Frost on 10-09-2023 Thin prep Papanicolaou smear with manual screening 3 5-15 [facility] Absolute lymphocyte countOrd ered By: Anson Waite on 10-02-2023 Lymphocytes Auto (Unsp spec) [#/Vol] 0.69 10*3/uL 0.83-4.51 [facility] Automated lymphocyte count a s percentage of total leukocytesOrdered By: Anson Waite on 10-02-2023 Lymphocytes/100 WBC Auto (Unsp spec) 7.3 % 19-41 [facility] Basophil percentageOrdered B y: Anson Waite on 10-02-2023 Basophils/100 WBC (Bld) 0.2 % 0-1 [facility] Eosinophils/100 WBC (Bld) 0.6 % 0-5 [facility] Monocytes/100 WBC (Bld) 7.4 % 0-10 [facility] Neutrophils (Bld) [#/Vol] 8.0 10*3/uL 2.0-7.7 [facility] Neutrophils/100 WBC (Bld) 84.0 % 47-70 [facility] Immature granulocytes/100 WB C Auto (Bld)Ordered By: Anson Waite on 10-02-2023 Immature granulocytes/100 WBC (Bld) 0.500 % 0.0-0.9 [facility] Comment on above: IG% - Immature Granu locytes (promyelocytes, myelocytes and metamyelocytes) > 1% indicates that a LEFT SHIFT is Present. Laboratory - Hematology and Cell countsOrdered By: Anson Waite on 10-02-2023 Nucleated RBC/100 WBC (Bld) [Ratio] 0 % 0-5 [facility] Whole blood hemoglobin A1c/t otal hemoglobin ratio (mass fraction)Ordered By: Anson Waite on 10-02-2023 HbA1c (Bld) [Mass fraction] 5.4 % 3.8-5.6 [facility] Comment on above: Normal < 5.7 % Predi abetic 5.7 - 6.4 % Diabetic >or= 6.5 % Please note range changes. Basophil percentageOrdered B y: Mehdi Cabrera on 09-30-2023 Basophil percentage 3.8 mg/dL 2.5-4.9 [facility] Bilirubin [Mass/Vol] 0.60 mg/dL 0.20-1.00 [facility] Comment on above: For patients on eltr ombopag therapy, use of Dimension [place] TBIL is not recommended. Protein [Mass/Vol] 6.1 g/dL 6.4-8.[address] [facility] Laboratory - Chemistry and C hemistry - challengeOrdered By: Mhedi Cabrera on 09-30-2023 Albumin/Globulin [Mass ratio] 0.9 {ratio} 0.9-2.4 [facility] ALP [Catalytic activity/Vol] 68 U/L 45-117 [facility] ALT [Catalytic activity/Vol] 23 U/L 13-56 [facility] Globulin (S) [Mass/Vol] 3.2 g/dL 2.2-4.2 [facility] Magnesium [Mass/Vol] 2.9 mg/dL 1.6-2.6 [facility] Thin prep Papanicolaou smear with manual screeningOrdered By: Anson Waite on 09-30-2023 Thin prep Papanicolaou smear with manual screening 92 mg/dL 74-106 [facility] Comment on above: MANAGEMENT OF PATIEN T CARE PER NURSING PROTOCOL Thin prep Papanicolaou smear with manual screeningOrdered By: Mehdi Cabrera on 09-30-2023 Thin prep Papanicolaou smear with manual screening 2.9 g/dL 3.2-5.0 [facility] Thin prep Papanicolaou smear with manual screening 20 U/L 15-37 [facility] Absolute lymphocyte countOrd ered By: Grant Whitley on 09-29-2023 Lymphocytes Auto (Unsp spec) [#/Vol] 1.31 10*3/uL 0.83-4.51 [facility] Automated lymphocyte count a s percentage of total leukocytesOrdered By: Grant Whitley on 09-29-2023 Lymphocytes/100 WBC Auto (Unsp spec) 19.6 % 19-41 [facility] Basophil percentageOrdered B y: Mehdi Cabrera on 09-29-2023 Cholesterol [Mass/Vol] 195 mg/dL <200 [facility] Comment on above: <200 mg/dL Desirable 200-240 mg/dL Borderline >240 mg/dL High Risk Triglyceride [Mass/Vol] 87 mg/dL <199 [facility] Comment on above: The drugs N-Acetylcy steine and Metamizole may falsely depress this assay.Serum Triglycerides Reference Interval Normal <150 mg/dL Borderline high 150 - 199 mg/dL High 200 - 499 mg/dL Very High > or = 500 mg/dL Basophil percentageOrdered B y: Grantcarlene Whitley on 09-29-2023 Basophils/100 WBC (Bld) 0.3 % 0-1 [facility] Chloride [Moles/Vol] 106 mmol/L 98-107 [facility] Eosinophils/100 WBC (Bld) 1.6 % 0-5 [facility] Glucose [Mass/Vol] 93 mg/dL 74-[address] [facility] Hemoglobin (Bld) [Mass/Vol] 14.8 g/dL 12.0-15.0 [facility] Monocytes/100 WBC (Bld) 5.8 % 0-10 [facility] Neutrophils (Bld) [#/Vol] 4.8 10*3/uL 2.0-7.7 [facility] Neutrophils/100 WBC (Bld) 71.8 % 47-70 [facility] Potassium [Moles/Vol] 4.9 mmol/L 3.5-5.1 [facility] Comment on above: Moderate Hemolysis, Result may be falsely increased. Sodium [Moles/Vol] 140 mmol/L 136-[address] [facility] WBC (Bld) [#/Vol] 6.7 10*3/uL 4.4-11.[address] [facility] Determination of erythrocyte mean corpuscular volume (MCV)Ordered By: Grantcarlene Whitley on 09-29-2023 MCV (RBC) [Entitic vol] 94.4 fL 81-99 [facility] Erythrocyte distribution wid th ratioOrdered By: Grantcarlene Whitley on 09-29-2023 Erythrocyte distribution width (RBC) [Ratio] 15.9 % 11.6-14.6 [facility] Erythrocyte distribution wid th standard deviationOrdered By: [facility] on [facility]23 Erythrocyte distribution width (RBC) [Entitic vol] 55.5 fL 35.1-43.9 [facility] Hematocrit Auto (Bld) [Volum e fraction]Ordered By: Grant Whitley on 09-29-2023 Hematocrit (Bld) [Volume fraction] 45.6 % 37-47 [facility] Immature granulocytes/100 WB C Auto (Bld)Ordered By: Grant Whitley on 09-29-2023 Immature granulocytes/100 WBC (Bld) 0.900 % 0.0-0.9 [facility] Comment on above: IG% - Immature Granu locytes (promyelocytes, myelocytes and metamyelocytes) > 1% indicates that a LEFT SHIFT is Present. Laboratory - Chemistry and C hemistry - challengeOrdered By: Mehdi Cabrera on 09-29-2023 Cholesterol in HDL [Mass/Vol] 54 mg/dL >40 [facility] Comment on above: The drugs N-Acetylcy steine and Metamizole may falsely depress this assay. Reference Range HDL <40 mg/dL Low HDL Cholesterol HDL >or= 60 mg/dL High HDL Cholesterol Cholesterol in LDL [Mass/Vol] 124 mg/dL 0-130 [facility] Laboratory - Chemistry and C hemistry - challengeOrdered By: Grant Whitley on 09-29-2023 CO2 [Moles/Vol] 31.0 mmol/L 21.0-32.0 [facility] Urea nitrogen/Creatinine [Mass ratio] 36.0 mg/mg 10-20 [facility] Laboratory - Hematology and Cell countsOrdered By: Grant Whitley on 09-29-2023 MCH (RBC) [Entitic mass] 30.6 pg 27.0-32.0 [facility] MCHC (RBC) [Mass/Vol] 32.5 g/dL 32-36 [facility] Nucleated RBC/100 WBC (Bld) [Ratio] 0 % 0-5 [facility] Platelet mean volume (Bld) [Entitic vol] 9.9 fL 6.2-12.0 [facility] Platelets (Bld) [#/Vol] 314 10*3/uL 150-450 [facility] No Panel InformationOrdered By: Mehdi Cabrera on 09-29-2023 VLDL Cholesterol 17 mg/dL 5-40 [facility] No Panel InformationOrdered By: Grant Whitley on 09-29-2023 Estimated Creatinine Clearance Calc 25.84 ml/min [facility] Estimated GFR (MDRD) Amer 67 mL/min >60 [facility] Comment on above: GFR Calc Estimated GFR (MDRD) Non-Af Amer 56 mL/min >60 [facility] Comment on above: Non- GFR Calc RBC Auto (Bld) [#/Vol]Ordere d By: Grant Whitley on 09-29-2023 RBC (Bld) [#/Vol] 4.83 10*6/uL 4.2-5.4 [facility] Serum or plasma calcium clarke urement (mass/volume)Ordered By: Grant Whitley on 09-29-2023 Calcium [Mass/Vol] 9.6 mg/dL 8.5-10.[address] [facility] Serum or plasma creatinine m easurement (mass/volume)Ordered By: Grant Whitley on 09-29-2023 Creatinine [Mass/Vol] 1.00 mg/dL 0.55-1.02 [facility] Comment on above: The validity of the calculated GFR & GFRAA in patients over 70 years has not been determined. Clinical correlation is essential. Serum or plasma urea nitroge n measurement (mass/volume)Ordered By: Grant Whitley on 09-29-2023 Urea nitrogen [Mass/Vol] 36 mg/dL - [facility] Thin prep Papanicolaou smear with manual screeningOrdered By: Grant Whitley on 09-29-2023 Thin prep Papanicolaou smear with manual screening 3 - [facility] Vital Signs Date Time Vital Sign Value Performing Clinician Zulmai dereje 03-20-2025 07:52-0400 Body height 160.[address] Sharif Ramos MD Work Phone: [facility] 12-17-2024 10:53-0400 Body height 160.[address] Sharif Ramos MD Work Phone: [facility] 06-18-2024 09:53-0500 Body mass index (BMI) [Ratio] 22.6 kg/m2 Dr. Viet Lovett MD Work Phone: [facility] 06-18-2024 09:53-0500 Body weight 58.[address] Viet Lovett MD Work Phone: [facility] 06-18-2024 09:53-0500 Diastolic blood pressure 58 mm[Hg] Dr. Viet Lovett MD Work Phone: [facility] 06-18-2024 09:53-0500 Heart rate 69 /min Dr. Viet Lovett MD Work Phone: [facility] 06-18-2024 09:53-0500 Respiratory rate 16 /min Dr. Viet Lovett MD Work Phone: [facility] 06-18-2024 09:53-0500 SaO2% (BldA) [Mass fraction] 95 % Dr. Viet Lovett MD Work Phone: [facility] 06-18-2024 09:53-0500 Systolic blood pressure 104 mm[Hg] Dr. Viet Lovett MD Work Phone: [facility] 10-10-2023 09:37-0400 Body temperature 97.7 [degF] Dr. Grant Whitley Work Phone: 7(250)907-591071 [place] [address] 10-10-2023 09:37-0400 Diastolic blood pressure 55 mm[Hg] Dr. Grant Whitley Work Phone: 2(884)271-539071 [place] [address] 10-10-2023 09:37-0400 Heart rate 70 /min Dr. Grant Whitley Work Phone: 0(600)160-631471 [place] [address] 10-10-2023 09:37-0400 Respiratory rate 16 /min Dr. Grant Whitley Work Phone: 8(273)408-461171 [place] [address] 10-10-2023 09:37-0400 SaO2% (BldA) [Mass fraction] 97 % Dr. Grant Whitley Work Phone: [facility] 10-10-2023 09:37-0400 Systolic blood pressure 132 mm[Hg] Dr. Garnt Whitley Work Phone: 9(760)553-744771 [place] [address] 10-08-2023 15:05-0400 Body height 160.[address] Grant Whitley Work Phone: [facility] 10-08-2023 15:05-0400 Body weight 40.[address] Grant Whitley Work Phone: [facility] 10-07-2023 04:22-0400 Body mass index (BMI) [Ratio] 15.7 kg/m2 Dr. Grant Whitley Work Phone: [facility] 10-01-2023 01:28-0400 Inhaled oxygen flow rate 2 L/min Dr. Grant Whitley Work Phone: [facility] 09-29-2023 14:46-0400 Body temperature 98.1 [degF] [facility] 09-29-2023 14:46-0400 Diastolic blood pressure 70 mm[Hg] [facility] 09-29-2023 14:46-0400 Heart rate 70 /min [facility] 09-29-2023 14:46-0400 Respiratory rate 14 /min [facility] 09-29-2023 14:46-0400 SaO2% (BldA) [Mass fraction] 99 % [facility] 09-29-2023 14:46-0400 Systolic blood pressure 163 mm[Hg] [facility] 09-29-2023 12:46-0400 Body height 160.02 cm [facility] 09-29-2023 12:46-0400 Body mass index (BMI) [Ratio] 16.1 kg/m2 [facility] 09-29-2023 12:46-0400 Body weight 41.3 kg [facility] Encounters Encounter Date Encounter Type Care Provider Facility Start: 04-09-2025 ambulatory Efewongbe Oleghe OLS Fa cility:[facility] Start: 04-03-2025 End: 04-03-2025 ambulatory Efewongbe Oleghe Facility[facility] Start: 04-01-2025 ambulatory Efewongbe Oleghe OLS Fa cility:[facility] Start: 03-17-2025 End: 03-17-2025 ambulatory Lashae Garner NP Facility:[facility] Start: 02-18-2025 ambulatory Sharif CARRENO Fa cility:[facility] Start: 02-18-2025 [facility] Start: 02-10-2025 End: 02-10-[address] Sharif Ramos MD Work Phone: [facility][Note 3] Start: 02-10-2025 End: 02-10-[address] Sharif Ramos MD -[facility] Work Phone: Start: 01-21-2025 ambulatory Sharif CARRENO Fa cility:[facility] Start: 01-21-2025 [facility] Start: 01-15-2025 End: 01-15-[address] Sharif Ramos MD Work Phone: [facility] Start: 01-15-2025 End: 01-15-[address] Andrea Hawthorne MD -[facility] Work Phone: Start: 01-07-2025 End: 01-07-[address] Sharif Ramos MD Work Phone: [facility][Note 3] Start: 01-07-2025 End: 01-07-2025 Patient encounter procedure Lashae Garner [facility] -[facility] Work Phone: Start: 01-07-2025 [facility] Start: 01-07-2025 End: 01-07-2025 ambulatory Sharif CARRENO Facility:[facility] Start: 12-31-2024 ambulatory Sharif CARRENO Fa cility:[facility] Start: 12-31-2024 [facility] Start: 12-16-2024 End: 12-16-[address] Sharif Ramos MD Work Phone: [facility][Note 3] Start: 12-16-2024 End: 12-16-[address] Sharif Ramos MD -[facility] Work Phone: Start: 12-03-2024 ambulatory Sharif Edmondson cility:[facility] Start: 12-03-2024 Registered Referred Sharif Ramos MD [facility] Start: 11-20-2024 End: 11-20-[address] Sharif Ramos MD Work Phone: [facility][Note 3] Start: 11-20-2024 End: 11-20-2024 Patient encounter procedure Jamar DE LA PAZ -[facility] Work Phone: Start: 11-05-2024 ambulatory Sharif CARRENO Fa cility:[facility] Start: 11-05-2024 Registered Referred Sharif Ramos MD [facility] Start: 10-16-2024 End: 10-16-[address] Sharif Ramos MD Work Phone: [facility] Work Phone: Start: 10-16-2024 End: 10-16-[address] Andrea Hawthorne MD -[facility] Work Phone: Start: 10-15-2024 End: 10-15-[address] Sharif Ramos MD Work Phone: [facility][Note 3] Start: 10-15-2024 End: 10-15-2024 Patient encounter procedure Lashae NAM -[facility] Work Phone: Start: 10-08-2024 End: 10-08-2024 ambulatory Sharif Ramos MD [facility] Work Phone: Start: 10-08-2024 End: 10-08-2024 Departed Referred Sharif AbbasiKaylen [facility] Start: 10-07-2024 End: 10-08-[address] Sharif Ramos MD Work Phone: [facility][Note 3] Start: 10-07-2024 End: 10-07-[address] Sharif Ramos MD -[facility] Work Phone: Start: 09-02-2024 End: 09-02-2024 ambulatory [facility] Facility:[facility] Start: 09-02-2024 End: 09-02-2024 Patient encounter procedure Lashae NAM -[facility] Work Phone: Start: 08-17-2024 End: 08-17-2024 ambulatory [facility] Facility:[facility] Start: 08-17-2024 End: 08-17-[address] Andrea Hawthorne MD -[facility] Work Phone: Start: 08-13-2024 Registered Referred Sharif Ramos MD [facility] Start: 08-13-2024 End: 08-13-[address] Viet Lovett MD Work Phone: [facility] Work Phone: Start: 08-13-2024 End: 08-13-2024 [facility] Start: 08-12-2024 End: 08-13-2024 ambulatory [facility] Facility:[facility] Start: 08-12-2024 End: 08-12-[address] Sharif Ramos MD -[facility] Work Phone: Start: 07-31-2024 End: 07-31-2024 ambulatory [facility] Facility:[facility] Start: 07-31-2024 End: 07-31-2024 Patient encounter procedure Jamar DE LA PAZ -[facility] Work Phone: Start: 07-09-2024 End: 07-09-2024 ambulatory Andrea Hawthorne Facility:[facility] Start: 07-09-2024 End: 07-09-[address] Andrea Hawthorne MD -[facility] Work Phone: Start: 06-26-2024 ambulatory Efewzanebe Latashae OLS Fa cility:[facility] Start: 06-26-2024 [facility] Start: 06-24-2024 End: 06-24-2024 ambulatory Lashae Luxbairon DEBT MANAGEMENT COUNSELOR Facility:[facility] Start: 06-24-2024 End: 06-24-2024 Patient encounter procedure Lashae Garner DEBT MANAGEMENT COUNSELOR- -[facility] Work Phone: Start: 06-18-2024 End: 06-18-[address] Andrea Hawthorne MD -[facility] Work Phone: Start: 06-18-2024 End: 06-18-2024 ambulatory Efewshahram Pagane EV Facility:[facility] Start: 06-17-2024 End: 06-17-2024 ambulatory Efewongbe Oleghe OLS Facility:[facility] Start: 06-17-2024 End: 06-17-[address] Sharif Ramos MD -[facility] Work Phone: Start: 06-06-2024 ambulatory Efewongbe Oleghe OLS Fa cility:[facility] Start: 06-06-2024 [facility] Start: 05-15-2024 End: 05-15-2024 [facility] Start: 05-15-2024 End: 05-15-2024 ambulatory Efewongmike Pereiraghe EV Facility:[facility] Start: 05-07-2024 End: 05-07-2024 [facility] Start: 05-06-2024 End: 05-07-2024 ambulatory Efewongbe Randallghe OLS Facility:[facility] Start: 04-24-2024 End: 04-24-2024 ambulatory Efewongbe Oleghe OLS Facility:[facility] Start: 10-09-2023 Non-patient / Non-visit Dr. Tamica Whitley Work Phone: [facility] Work Phone: Start: 10-08-2023 Non-patient / Non-visit Dr. Tamica Whitley Work Phone: [facility] Work Phone: Start: 10-07-2023 Non-patient / Non-visit Dr. Tamica Whitley Work Phone: [facility] Work Phone: Start: 10-06-2023 Non-patient / Non-visit Dr. Tamica Whitley Work Phone: [facility] Work Phone: Start: 10-05-2023 Non-patient / Non-visit Dr. Tamica Whitley Work Phone: [facility] Work Phone: Start: 10-04-2023 Non-patient / Non-visit Dr. Tamica Whitley Work Phone: [facility] Work Phone: Start: 10-03-2023 Non-patient / Non-visit Dr. Tamica Whitley Work Phone: [facility] Work Phone: Start: 10-02-2023 Non-patient / Non-visit Dr. Tamica Whitley Work Phone: [facility] Work Phone: Start: 10-01-2023 Non-patient / Non-visit Dr. Tamica Whitley Work Phone: [facility] Work Phone: Start: 10-01-2023 Non-patient / Non-visit Dr. Tamica Whitley Work Phone: [facility] Start: 10-01-2023 Non-patient / Non-visit Dr. Tamica Whitley Work Phone: [facility] Start: 09-30-2023 Non-patient / Non-visit Dr. Tamica Whitley Work Phone: [facility] Start: 09-30-2023 Non-patient / Non-visit Dr. Tamica Whitley Work Phone: [facility] Work Phone: Start: 09-29-2023 End: 10-10-2023 Evaluation and management of inpatient [facility] Work Phone: Procedures Date Procedure [...] discharge [facility] Start: 10-04-2023 Verification routine [facility] Start: 10-02-2023 Care planning and pr oblem solving actions [facility] Start: 10-01-2023 Consultation [facility] Start: 09-30-2023 End: 09-30-2023 [facility] Start: 09-30-2023 Ambulation therapy management [facility] Start: 09-30-2023 Application of device [facility] Start: 09-30-2023 Exercises [facility] Start: 09-30-2023 Following clinical p athway protocol [facility] Start: 09-30-2023 Introduction of urin gideon catheter [facility] Start: 09-30-2023 Neurovascular assessment [facility] Start: 09-30-2023 Patient education [facility] Start: 09-30-2023 Provision of activit y privileges [facility] Start: 09-30-2023 Referral to occupati onal therapist [facility] Start: 09-30-2023 Referral to service [facility] Start: 09-30-2023 Skin care [facility] Start: 09-30-2023 Vital signs measurements [facility] Start: 09-30-2023 Wound care [facility] Start: 09-30-2023 Recommendation to co ntinue with treatment [facility] Start: 09-29-2023 Application of inter mittent pneumatic compression device [facility] Start: 09-29-2023 Following clinical p athway protocol [facility] Start: 09-29-2023 Assessment of risk o f venous thromboembolism [facility] Start: 09-29-2023 Documentation procedure [facility] Start: 09-29-2023 Incentive spirometry [facility] Start: 09-29-2023 Insertion of cathete r into peripheral vein [facility] Start: 09-29-2023 Measuring intake and output [facility] Start: 09-29-2023 Providing care accor ding to standard [facility] Start: 09-29-2023 Referral to service [facility] Start: 09-29-2023 [facility] Start: 09-29-2023 Hospital admission, emergency, from emergency room, medical nature [facility] Start: 09-29-2023 Verification routine [facility] Start: 09-29-2023 Admission procedure [facility] Start: 09-29-2023 [facility] Start: 09-29-2023 Patient referral to dietitian [facility] Patient Education Bruises (Contusions) ED Skin Tear (Skin Avulsion) [facility] Work Phone: Patient referral [facility] Work Phone: Immunizations Immunization Date Immunization Notes Care Provider Fa cility 09-29-2023 tetanus toxoid, redu jorge diphtheria toxoid, and acellular pertussis vaccine, adsorbed [facility] Payers Date Payer Category Payer Unknown [id number] 2024 Self-pay 2024 Medicaid [id number] 2024 Private Health Insurance [id number] Unknown [id number] 2.16.8 40.1.243236.3.579.2.462 Unknown [id number] 2.16.8 40.1.676759.3.579.2.462 Unknown [id number] 2.16.8 40.1.887295.3.579.2.462 Unknown [id number] 2.16.8 40.1.066670.3.579.2.462 Unknown [id number] 2.16.8 40.1.336546.3.579.2.462 Unknown [id number] 2.16.8 40.1.972942.3.579.2.462 Unknown [id number] 2.16.8 40.1.815330.3.579.2.462 Unknown [id number] 2.16.8 40.1.638132.3.579.2.462 Unknown [id number] 2.16.8 40.1.789092.3.579.2.462 Unknown [id number] 2.16.8 40.1.153712.3.579.2.462 Unknown [id number] 2.16.8 40.1.196999.3.579.2.462 Unknown [id number] 2.16.8 40.1.868641.3.579.2.462 Unknown [id number] 2.16.8 40.1.391336.3.579.2.462 Unknown [id number] 2.16.8 40.1.291469.3.579.2.462 Unknown [id number] 2.16.8 40.1.361590.3.579.2.462 Unknown [id number] 2.16.8 40.1.720998.3.579.2.462 Unknown [id number] 2.16.8 40.1.046063.3.579.2.462 Unknown [id number] 2.16.8 40.1.196418.3.579.2.462 Unknown [id number] 2.16.8 40.1.135981.3.579.2.462 Unknown [id number] 2.16.8 40.1.033105.3.579.2.462 Unknown [id number] 2.16.8 40.1.715068.3.579.2.462 Unknown [id number] 2.16.8 40.1.729074.3.579.2.462 Unknown [id number] 2.16.8 40.1.111381.3.579.2.462 Unknown [id number] 2.16.8 40.1.730836.3.579.2.462 Unknown [id number] 2.16.8 40.1.870426.3.579.2.462 Unknown [id number] 2.16.8 40.1.990970.3.579.2.462 Unknown [id number] 2.16.8 40.1.380641.3.579.2.462 Unknown [id number] 2.16.8 40.1.093036.3.579.2.462 Unknown [id number] 2.16.8 40.1.397152.3.579.2.462 Unknown [id number] 2.16.8 40.1.947980.3.579.2.462 Unknown [id number] 2.16.8 40.1.124749.3.579.2.462 Unknown [id number] 2.16.8 40.1.034496.3.579.2.462 Unknown [id number] 2.16.8 40.1.666658.3.579.2.462 Unknown [id number] 2.16.8 40.1.141645.3.579.2.462 Unknown [id number] 2.16.8 40.1.519779.3.579.2.462 Unknown [id number] 2.16.8 40.1.613600.3.579.2.462 Social History Date Type Detail Facility Start: 09-29-2023 End: 09-29-2023 Tobacco smoking status NMIS Unknown if ever smoked [facility] Start: 1935 Sex Assigned At Female W [facility] Start: 06-19-2024 End: 03-20-2025 Tobacco smoking status NHIS Never smoked tobacco (finding) [facility] Start: 09-04-2024 End: 09-04-2024 Sex Female (finding) [facility] Sex Female [facility] Medical Equipment Procedure Code Equipment Code Equipment [...] uncemented hemiarthroplasty of hip Orthopaedic cement, non-antimicrobial ()[id number] FDA Start: 09-30-2023 Primary uncemented hemiarthroplasty [...] Result Facility 10-10-2023 Functional status Bathroom Privilege [facility] Work Phone: Mental Status Date Assessment Result Facility 10-10-2023 Cognitive function Voice/Name [facility] Work Phone: Clinical Notes 09-29-2023 to 07-09-2024 Note Date & Type Note Facility 07-09-2024 Evaluation note Diagnosis Onset Date Resolution CHF (congestive heart failure) acute July 09 10:48am 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 acute July 09 10:48am Ischemic cardiomyopathy [place] 2024 10:48am [facility] Work Phone: 1(997) 704-846101-15-2025 Evaluation note* Diagnosis Onset Date Resolution Status [...] Ischemic cardiomyopathy acute F ebruary 2024 10:48am [facility] Work Phone: 1(874) 113-547905-08-2024 Consult note Author Jazmin Oliveira [facility] October 10, 2023 10:50am Note Date/Time October 10, 2023 10:50a [facility] Medical Records Department [address] [place] [address] Counseling Note - Pharmacy 10/10/23 1050 MR#: [id number] Acct: [id number] Name: SHERRIE LOZANO Rep #:[id number] : 1935 88 From: Jazmin Oliveira PCP: Dr. Viet Lovett MD Status:ADM I N Y Location: [place] [address] [place] Med Reconciliation Pharmacy Service has performed discharge [...] Signature (if applicable): Date CC: ~ Signed [facility] Work Phone: 1(213) 624-639205-07-2024 Progress note Author Tammi Frost [facility] October 09, 2023 4:09pm Note Date/Time October 09, 2023 4:09pm [facility] Medical Records Department [address] [place] [address] Progress Note - Hospitalist 10/09/23 6987 MR#: [id number] Acct: [id number] Name: SHERRIE LOZANO Rep #:[id number] : 1935 88 From: Tammi Frost DO PCP: Dr. 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 Patient's been medically ready for discharge since 10/04/2023. Charges/Coding Visit Charges Inpatient E&M: 27832 Subs Hosp L1 10/09/23 1602 <Electronically signed by Tammi Frost DO> Cosigner Signature (if applicable): CC: ~ Signed [facility] Work Phone: 1(341) 915-367205-06-2024 Progress note Author Tammi Frost [facility] October 08, 2023 5:12pm Note Date/Time October 08, 2023 5:12pm [facility] Medical Records Department [facility] [place] [address] Progress Note - Hospitalist 10/08/23 1700 MR#: [id number] Acct: [id number] Name: SHAHEEDSHERRIE J Rep #:[id number] : 1935 88 From: Tammi Frost DO PCP: Dr. Viet Lovett MD Status:ADM I N Location: [facility] VD007-6 Reason for Visit Reason for Visit: Left hip pain status post fall Subjective Subjective Patient denies any issues currently. Unfortunately, insurance [place] of [place] and does not cover [facility]. They are making exception and currently reviewing. 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 Patient's been medically ready for discharge since 10/04/2023. Charges/Coding Visit Charges Inpatient E&M: 84182 Subs Hosp L2 10/08/23 1712 <Electronically signed by Tammi Frost DO> Cosigner Signature (if applicable): CC: ~ Signed [facility] Work Phone: 1(931) 998-733905-06-2024 Discharge summary Author Tammi [facility] October 08, 2023 10:21am Note Date/Time October 08, 2023 10:21a [facility] Medical Records Department [address] [place] [address] Transfer to [facility] MR#: [id number] Acct: [id number] Name: SHERRIE LOZANO Rep #:[id number] : 1935 88 From: Tammi Frost DO PCP: Dr. Viet Lovett MD Status:ADM I N Certification of patient admission REQUIRED AT TIME OF ADMISSION. I CERTIFY THAT POST-HOSPITAL ECF SERVICES ARE REQUIRED TO BE GIVEN ON AN IN-PATIENT BASIS BECAUSE OF THE ABOVE NAMED PATIENT'S NEED FOR RETIREMENT CARE ON A CONTINUING BASIS FOR THE CONDITION(S) FOR WHICH HE/SHE WAS RECEIVING IN-PATIENT HOSPITAL SERVICES PRIOR TO HIS/HER TRANSFER TO [facility]. 10/08/23 1021<Electronically signed by Tammi Frost DO> [...] Other malaise Allergies/Procedures Done in Hospital Allergies Jjvahtx-LPO-GuK Reductase Inhibitor Adverse Reaction (Mild, Verified 09/29/23 [...] Follow Up Care Please Follow Up With: mAol Yoder DO When: 1.5 weeks Discharge Plan Admission Admit Date/Time: 09/29/23 14:27 Attending Provider: Tammi Frost Primary Care Provider: Viet Lovett Consulting Providers: Mehdi Crespo; Amol Ydoer; Anson Waite; Joon Yuen Instructions Patient Instructions: [...] closed fracture 10/08/23 1021 <Electronically signed by Tmami Frost DO> Cosigner Signature (if applicable): CC: Dr. Joon Yuen DO; Dr. Mehdi Crespo DO; Dr. Amol Yoder DO; Dr. Anson Waite MD; Dr. Viet Lovett MD ~ [facility] Work Phone: 1(198) 729-737305-05-2024 Progress note Author [facility] October 07, 2023 12:45pm Note Date/Time October 07, 2023 11:16a [facility] Medical Records Department [address] [place] [address] Progress Note - Hospitalist 10/07/23 1115 MR#: [id number] Acct: [id number] Name: SHERRIE LOZANO Rep #:[id number] : 1935 88 From: Joon garcía DO PCP: Dr. Viet Lovett MD Status:ADM I N Location: [place] [address] Reason for Visit Reason for Visit: Diagnoses [...] 10/02/23 12:07 RMA (Rec: 10/02/23 12:08 RMA [id number]) Nutrition Malnutrition Evidence of Malnutrition Exists Yes [...] Patient is an 88-year-old female who presented [facility] ED on 09/29/2023 after a fall with [...] management following. Lives in assisted living side [facility], planning for discharge to [facility] side there, has been complicated by insurance [...] 25 minutes. Charges/Coding Visit Charges Inpatient E&M: 43735 Subs Hosp L1 10/07/23 1245 <Electronically signed by Joon Yuen DO> Cosigner Signature (if applicable): CC: ~ Signed [facility] Work Phone: 1(340) 619-587805-04-2024 Progress note Author [facility] October 06, 2023 11:01am Note Date/Time October 06, 2023 9:30am [facility] Medical Records Department [address] [place] [address] Progress Note - Hospitalist 10/06/23 0930 MR#: [id number] Acct: [id number] Name: SHERRIE LOZANO Rep #:[id number] : 1935 88 From: Joon garcía DO PCP: Dr. Viet Lovett MD Status:ADM I N Location: [place] [address]1 Reason for Visit Reason for Visit: Diagnoses [...] 10/02/23 12:07 RMA (Rec: 10/02/23 12:08 RMA [id number]) Nutrition Malnutrition Evidence of Malnutrition Exists Yes [...] Patient is an 88-year-old female who presented [facility] ED on 09/29/2023 after a fall with [...] management following. Lives in assisted living side [facility], planning for discharge to SNF side there, [...] 25 minutes. Charges/Coding Visit Charges Inpatient E&M: 25295 Subs Hosp L1 10/06/23 1101 <Electronically signed by Joon Yuen DO> Cosigner Signature (if applicable): CC: ~ Signed [facility] Work Phone: 1(312) 702-985305-03-2024 Progress note Author Joon eun [facility] October 05, 2023 1:37pm Note Date/Time October 05, 2023 1:37pm [facility] Medical Records Department [address] [place] [address] Progress Note - Hospitalist 10/05/23 1335 MR#: [id number] Acct: [id number] Name: SHERRIE LOZANO Rep #:[id number] : 1935 88 From: Joon Tyron garcía DO PCP: Dr. Viet Lovett MD Status:ADM I N Location: [address] Reason for Visit Reason for Visit: [...] 10/02/23 12:07 RMA (Rec: 10/02/23 12:08 RMA [id number]) Nutrition Malnutrition Evidence of Malnutrition Exists Yes [...] Patient is an 88-year-old female who presented [facility] ED on 09/29/2023 after a fall with [...] following. Lives in assisted living side of [facility], planning for discharge to SNF side there. [...] 25 minutes. Charges/Coding Visit Charges Inpatient E&M: 26068 Subs Hosp L1 10/05/23 4717 <Electronically signed by Joon Mosteller DO> Cosigner Signature (if applicable): CC: ~ Signed [facility] Work Phone: 1(457) 490-616505-02-2024 Progress note Author Joon Yuen [facility] October 04, 2023 6:56pm Note Date/Time October 04, 2023 1:47pm [facility] Medical Records Department [address] [place] [address] Progress Note - Hospitalist 10/04/23 1347 MR#: [id number] Acct: [id number] Name: SHERRIE LOZANO Rep #:[id number] : 1935 88 From: Joon garcía DO PCP: Dr. Viet Lovett MD Status:ADM I N Location: [place] [address]25-1 Reason for Visit Reason for Visit: Diagnoses [...] place. Patient currently resides with her at [facility] in the assisted living side. Current plan is for patient to discharge to [facility] side of [facility] once the insurance issues have been worked [...] 10/02/23 12:07 RMA (Rec: 10/02/23 12:08 RMA [id number]) Nutrition Malnutrition Evidence of Malnutrition Exists Yes [...] Patient is an 88-year-old female who presented [facility] ED on 09/29/2023 after a fall with [...] following. Lives in assisted living side of [facility], planning for discharge to [facility] side there. Medically ready for discharge on [...] 35 minutes. Charges/Coding Visit Charges Inpatient E&M: 38898 Subs Hosp L2 10/04/23 7257 <Electronically signed by Joon Yuen DO> Cosigner Signature (if applicable): CC: ~ Signed [facility] Work Phone: 1(259) 602-884405-01-2024 Progress note Author Anson Waite [facility] October 03, 2023 1:28pm Note Date/Time October 03, 2023 1:20pm [facility] Medical Records Department [address] [place] [address] Progress Note - Hospitalist 10/03/23 1315 MR#: [id number] Acct: [id number] Name: SHERRIE LOZANO Rep #:[id number] : 1935 88 From: Anson Pritchard PCP: Dr. Viet Lovett MD Status:ADM I N Location: [place] [address] Reason for Visit Reason for Visit: Diagnoses [...] 10/02/23 12:07 RMA (Rec: 10/02/23 12:08 RMA [id number]) Nutrition Malnutrition Evidence of Malnutrition Exists Yes [...] PLAN: Plan 88-year-old female was admitted to [facility] floor after she lost her balance, left [...] Has Drake catheter. Give Tylenol prn for cqzj-kc-hpeaitvz (level 1-5/10) pain or fever. Give Morphine [...] evidence of postoperative complication. Discussed with the duty manager to start for precertification/authorization for SNF 10/01: [...] with suppository.Pending pre-CERT CKD stage IIIb: BUNs/creatinine 30/1.08. Creatinine on [...] moved from [place] and has not established doubling machine operator here but planning to establish with Dr. [...] EDT , Charges/Coding Visit Charges Inpatient E&M: 75984 Subs Hosp L2 10/03/23 1328 <Electronically signed by Anson Waite MD> Cosigner Signature (if applicable): CC: ~ Signed [facility] Work Phone: 1(697) 533-286504-30-2024 Progress note Author Anson Waite [facility] October 02, 2023 1:43pm Note Date/Time October 02, 2023 1:3 7pm [facility] Medical Records Department [address] [place] [address] Progress Note - Hospitalist 10/02/23 1335 MR#: [id number] Acct: [id number] Name: SHERRIE LOZANO Rep #:[id number] : 1935 88 From: Anson Pritchard PCP: Dr. Viet Lovett MD Status:ADM I N Location: [place] [address] Reason for Visit Reason for Visit: Diagnoses [...] 10/02/23 12:07 RMA (Rec: 10/02/23 12:08 RMA [id number]) Nutrition Malnutrition Evidence of Malnutrition Exists Yes [...] 84.0 H, Lymph % (Auto) 7.3 L, Miller % (Auto) 7.4, Eos % (Auto) 0.6, [...] PLAN: Plan 88-year-old female was admitted to [facility] floor after she lost her balance, left [...] Has Drake catheter. Give Tylenol prn for scga-pw-kgybpcst (level 1-5/10) pain or fever. Give Morphine [...] evidence of postoperative complication. Discussed with the duty manager to start for precertification/authorization for SNF 10/01: [...] moved from [place] and has not established doubling machine operator here but planning to establish with Dr. [...] 13:37 EDT Reading Location ID and State: [facility] / [place] , Service support , Charges/Coding Visit Charges Inpatient E&M: 36010 Subs Hosp L2 10/02/23 1343 <Electronically signed by Anson Waite MD> Cosigner Signature (if applicable): CC: ~ Signed [facility] Work Phone: 1(214) 898-725404-29-2024 Progress note Author Anson [facility] October 01, 2023 4:41pm Note Date/Time October 01, 2023 4:4 1pm [facility] Medical Records Department [address] [place] [address] Progress Note - Hospitalist 10/01/23 1632 MR#: [id number] Acct: [id number] Name: SHERRIE LOZANO Rep #:[id number] : 1935 88 From: Anson Pritchard PCP: Dr. Viet Lovett MD Status:ADM I N Location: [place] [address] Reason for Visit Reason for Visit: Diagnoses [...] 09/30/23 15:18 RMA (Rec: 09/30/23 15:18 RMA [id number]) Nutrition Malnutrition Evidence of Malnutrition Exists Yes [...] 83.6 H, Lymph % (Auto) 6.6 L, Miller % (Auto) 9.1, Eos % (Auto) 0.0, [...] PLAN: Plan 88-year-old female was admitted to [facility] floor after she lost her balance, left [...] Has Drake catheter. Give Tylenol prn for ktka-fi-jvdwfacs (level 1-5/10) pain or fever. Give Morphine [...] evidence of postoperative complication. Discussed with the duty manager to start for precertification/authorization for SNF CKD stage IIIb: BUNs/creatinine 1.08. Creatinine on admission 1.0. No majorsignificant difference. [...] moved from [place] and has not established doubling machine operator here but planning to establish with Dr. [...] 83.6 H, Lymph % (Auto) 6.6 L, Miller % (Auto) 9.1, Eos % (Auto) 0.0, [...] EDT , Charges/Coding Visit Charges Inpatient E&M: 20576 Subs Hosp L2 10/01/23 1641 <Electronically signed by Anson Waite MD> Cosigner Signature (if applicable): CC: ~ Signed [facility] Work Phone: 1(909) 185-253804-29-2024 Progress note Author [facility] October 01, 2023 11:45am Note Date/Time October 01, 2023 11: 45am [facility] Medical Records Department [address] [place] [address] Progress Note - Orthopedic 10/01/23 1142 MR#: [id number] Acct: [id number] Name: SHERRIE LOZANO Rep #:[id number] : 1935 88 From: Amol Saenz PCP: Dr. Viet Lovett MD Status:ADM I N Location: [place] [address] Subjective Subjective Seen and examined. Pain controlled [...] 09/30/23 15:18 RMA (Rec: 09/30/23 15:18 RMA [id number]) Nutrition Malnutrition Evidence of Malnutrition Exists Yes [...] 83.6 H, Lymph % (Auto) 6.6 L, Miller % (Auto) 9.1, Eos % (Auto) 0.0, [...] 13:37 EDT Reading Location ID and State: [address] [place] [address] , Service support , Physical Exam Const [...] wound check if patient is at a [facility] rehab or TCU I am happy to see her there instead. Call with any questions or concerns 10/01/23 1145 <Electronically signed by Amol Yoder DO> Cosigner Signature (if applicable): CC: ~ Signed [facility] Work Phone: 1(227) 366-650504-28-2024 Progress note Author Anson Waite [facility] September 30, 2023 12:41pm Note Date/Time September 30, 2023 7:5 4am [facility] Medical Records Department [address] [place] [address] Progress Note - Hospitalist 09/30/23 0752 MR#: [id number] Acct: [id number] Name: SHERRIE LOZANO Rep #:[id number] : 1935 88 From: Anson Pritchard PCP: Dr. Viet Lovett MD Status:ADM I N Location: [place] [address] Reason for Visit Reason for Visit: Diagnoses [...] (Auto) 71.8 H, Lymph % (Auto) 19.6, Miller % (Auto) 5.8, Eos % (Auto) 1.6, [...] 77.8 H, Lymph % (Auto) 12.0 L, Miller % (Auto) 7.9, Eos % (Auto) 1.3, [...] 13:16 EDT Reading Location ID and State: [facility] / [place] , Service support , Chest X-Ray 09/29/23 14:25 IMPRESSION: Cardiac enlargement. No focal infiltrate. Electronically Signed: Enrrique Carty MD at 14:48 EDT Reading Location ID and State: [address] [place] [address] , Service support , Hip/Pelvis X-Ray 09/29/23 14:25 IMPRESSION: Left femoral neck fracture. Electronically Signed: Enrrique Carty MD at 14:49 EDT Reading Location ID and State: [facility] / [place] , Service support , Physical Exam Narrative [...] PLAN: Plan 88-year-old female was admitted to [facility] floor after she lost her balance, left [...] Has Drake catheter. Give Tylenol prn for hkkx-oj-eqskltvt (level 1-5/10) pain or fever. Give Morphine [...] systolic heart failure as per history from [facility], Dr. Júnior Hays which states he has EF about 30%. No documentation available. 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 [...] (Auto) 71.8 H, Lymph % (Auto) 19.6, Miller % (Auto) 5.8, Eos % (Auto) 1.6, [...] 77.8 H, Lymph % (Auto) 12.0 L, Miller % (Auto) 7.9, Eos % (Auto) 1.3, [...] 14:48 EDT Reading Location ID and State: [address] [place] [address] , Service support , Hip/Pelvis X-Ray 09/29/23 14:25 IMPRESSION: Left femoral neck fracture. Electronically Signed: Enrrique Carty MD at 14:49 EDT Reading Location ID and State: [address] [place] [address] , Service support , Charges/Coding Addendum Addendum: [...] is 40 minutes. Visit Charges Inpatient E&M: 72131 Subs Hosp L3 09/30/23 1241 <Electronically signed by Anson Waite MD> Cosigner Signature (if applicable): CC: ~ Signed [facility] Work Phone: 1(477) 537-919304-28-2024 Procedure [facility] 09-30-2023 Consult note [facility] September 30, 2023 10:49am Note Date/Time September 30, 2023 10: 49am [facility] Medical Records Department [address] [place] [address] Consultation 09/30/23 1046 MR#: [id number] Acct: [id number] Name: SHERIRE LOZANO Rep #:[id number] : 1935 88 From: Amol Yoder DO PCP: Dr. Viet Lovett MD Status:ADM I N Location: [place] [address]-1 Assessment & Plan Assessment/Plan (1) Fracture of [...] community ambulator with walker who lives with [facility] who presents after ground-level fall where her knee buckled landing ontoher left hip immediately had significant groin pain and inability ambulate x-rays taken in the emergency room department demonstrated displaced femoral neck fracture. [facility] Medical History Brain bleed CHF (congestive [...] Type Severity Reaction Status Date / Time Umbyxfo-TBK-EeO Reductase AdvReac Mild muscle Verified 09/29/23 12:42 [...] (Auto) 71.8 H, Lymph % (Auto) 19.6, Miller % (Auto) 5.8, Eos % (Auto) 1.6, [...] 77.8 H, Lymph % (Auto) 12.0 L, Miller % (Auto) 7.9, Eos % (Auto) 1.3, [...] applicable): CC: Dr. Viet Lovett MD~ Signed [facility] Work Phone: 1(691) 697-642904-27-2024 History and physical note Author Mehdi Cabrera [facility] September 29, 2023 6:39pm Note Date/Time September 29, 2023 2:2 7pm [facility] Medical Records Department [address] [place] [address] H&P Exam - Hospitalist 09/29/23 1407 MR#: [id number] Acct: [id number] Name: SHERRIE LOZANO Rep #:[id number] : 1935 88 From: Mehdi Lnudy DO PCP: Dr. Viet Lovett MD Status:ADM I N Location: [facility] HU286-9 HPI - General General Date of Admission: 09/29/23 Date of Service: 09/29/23 Chief Complaint: Fall with Left Hip Fracture. 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 [...] patient and her recently moved her from [place], [place] since she grew up in [place], [place]. In the ER her X-rays were positive for a Left femoral neck fracture with clinical evidenceof Left lateral elbow skin tears x 2 and she was then admitted to the general medical floor for ongoing care for a stay that is expected to be greater than 48hours. [facility] Medical History Brain bleed CHF (congestive [...] Type Severity Reaction Status Date / Time Jlmpulg-VME-StM Reductase AdvReac Mild muscle Verified 09/29/23 12:42 [...] Enrrique Carty MD at 13:16 EDT , Assessment & Plan Assessment/Plan (1) Fracture [...] - Admit to general medical floor. Place [facility] keep on strict bedrest. Give Tylenol prn for xaoz-nc-zejljvod (level 1-5/10) pain or fever. Give Morphine [...] 55 minutes. Charges/Coding Visit Charges Inpatient E&M: 44421 Init Hosp L2 09/29/239 <Electronically signed by Mehdi Crespo DO> Cosigner Signature (if applicable): CC: Dr. Mehdi Crespo DO; Dr. Viet Lovett MD~ Signed [facility] Work Phone: 1(513) 845-594304-27-2024 Discharge summary Author Grant Whitley [facility] September 29, 2023 2:48pm Note Date/Time September 29, 2023 12: 49pm [facility] Medical Records Department [address] [place] [address] Emergency Department Summary 09/29/23 MR#: [id number] Acct: [id number] Name: SHERRIE LOZANO Rep #:[id number] : 1935 88 From: Grant Whitley MD PCP: Dr. Viet Lovett MD Status:ADM I N Location: [place] [address] HPI HPI - Fall History of Present [...] woman. She and her recently moved from [place]. She grew up in [place]. They are returning to a assisted living [...] Type Severity Reaction Status Date / Time Haqfzkt-LYI-VcN Reductase AdvReac Mild muscle Verified 09/29/23 12:42 [...] problems, contact your Primary Care Provider. Call [facility] ([phone]) or report to the closest Emergency Room. [...] cc: Dr. Viet Lovett MD ~* Signed [facility] Work Phone: 1(426) 233-632304-27-2024 Discharge summary Author Grant Whitley [facility] September 29, 2023 2:48pm Note Date/Time September 29, 2023 12: 49pm [facility] Medical Records Department [address] [place] [address] Emergency Department Summary 09/29/23 MR#: [id number] Acct: [id number] Name: SHERRIE LOZANO Rep #:[id number] : 1935 88 From: Grant Whitley MD PCP: Dr. Viet Lovett MD Status:ADM I N Location: [place] [address] HPI HPI - Fall History of Present [...] woman. She and her recently moved from [place]. She grew up in [place]. They are returning to a assisted living [...] Type Severity Reaction Status Date / Time Rizthbx-MAF-HiS Reductase AdvReac Mild muscle Verified 09/29/23 12:42 [...] Patient has no clonus or Babinski sign. [place] Coma Scale: document GCS findings Spontaneous Obeys [...] your Primary Care Provider. Call [facility] ([phone]) or report to the closest Emergency Room. [...] cc: Dr. Viet Lovett MD ~* Signed [facility] Work Phone: Evaluation note* Diagnosis Onset Date Resolution Status Contusion of pelvic region a cute Fracture of femoral neck, left, closed acute Injury due to fall acute ISTAP type 3 skin tear of left elbow acute [facility] Work Phone: Evaluation note* Diagnosis Onset Date [...] pacemaker acute S/P hip hemiarthroplasty acu te [facility] Work Phone: Evaluation noteNo assessment information available [facility] Work Phone: Reason for referral (narrative)No reason for referral information availablePromedica [facility]edo [facility] Work Phone: Chief Complaint and Reason [...] Date LABWORK May 07, 2024 5 :10am RETIREMENT LAB WORK May 15 5:00am RETIREMENT LAB WORK June 06, 2024 5:00am MONTHLY EXAM June 17, 2024 4 :00pm ESTABLISH (WVM) June 18, 2024 1 :04pm NEW CONCERN June 24, 2024 9 :42am RETIREMENT LAB WORK June 26, 2024 5:00am Pacer Check Remote July 09, 2024 9 :00am NEW ENROLEE (SCANNED) July 09, 2024 10:48am MONTHLY EXAM July 31, 2024 9:35am MONTHLY EXAM August 12, 2024 3:1 5pm RETIREMENT LAB WORK August 13, 2024 5 :00am RETIREMENT LAB WORK August 13, 2024 6 :30am [...] MONTHLY EXAM August 12, 2024 3:1 5pm RETIREMENT LAB WORK August 13, 2024 5 :00am RETIREMENT LAB WORK August 13, 2024 6 :30am [...] MONTHLY EXAM August 12, 2024 3:1 5pm RETIREMENT LAB WORK August 13, 2024 5 :00am RETIREMENT LAB WORK August 13, 2024 6 :30am [...] Monthly Exam December 16, 2024 4:06 pm RETIREMENT LAB WORK December 31, 2024 5: 00am [...] Monthly Exam December 16, 2024 4:06 pm RETIREMENT LAB WORK December 31, 2024 5: 00am RETIREMENT LAB WORK January 07, 2025 5 :00am MONTHLY NOTE January 07, 2025 4:5 7pm Pacer Check Remote January 15, 2025 2: 00am Chief Complaint Admit Date LABWORK December 03, 2024 5:00a m Monthly Exam December 16, 2024 4:06 pm RETIREMENT LAB WORK December 31, 2024 5: 00am RETIREMENT LAB WORK January 07, 2025 5 :00am MONTHLY NOTE January 07, 2025 4:5 7pm Pacer Check Remote January 15, 2025 2: 00am RETIREMENT LAB WORK January 21, 2025 5:00am MONTHLY EXAM February 10, 2025 2:58pm RETIREMENT LAB WORK February 18 5:25am Advance Directives No Advanced Directives Records Found Advance Directive Response Recorded Date/ Time Living Will Yes September 29, 2023 12:43pm Power of Narcotics Agent Yes September 28 12:43pm Name of Medical Power of Narcotics Agent Archana bullard September 29, 2023 12:43pm Advance Directive Response Recorded Date/ Time Name of Medical Power of Narcotics Agent Archana bullard September 29, 2023 3:25pm Living Will Yes September 29, 2023 3:25pm Power of Narcotics Agent Yes September 28 3:25pm Summary Purpose Family [...] MD Other Provider Active Dr. Amol Yoder , DO Attending Provider, Other Prov ider Active [...] Provid er Active Dr. Amol Yoder , Other Provider Active Dr. Joon Yuen , DO Attending Provider, Other Provider Active Dr. Anson Waite MD Other Provider Active Team Status: Active Member Role Status Dates Dr. Grant Whitley MD Emergency Provider Active Dr. Viet Lovett MD Primary Care Provider Active Dr. Mehdi Crespo , DO Admit Provider, Other Provid er Active Dr. Amol Yoder , Other Provider Active Dr. Anson Waite MD [...] Provid er Active Dr. Amol Yoder , Other Provider Active Dr. Anson Waite MD [...] 2024 End: June 24, 2024 Lashae Garner DEBT MANAGEMENT COUNSELOR, DEBT MANAGEMENT COUNSELOR-C Attending Provider Active Start: June 24, 2024 [...] 2024 End: September 02, 2024 Lashae Garner DEBT MANAGEMENT COUNSELOR, DEBT MANAGEMENT COUNSELOR-C Attending Provider Active Start: September 02, 2024 [...] 2024 End: September 02, 2024 Lashae Garner DEBT MANAGEMENT COUNSELOR, DEBT MANAGEMENT COUNSELOR-C Attending Provider Active Start: September 02, 2024 [...] 2024 End: October 15, 2024 Lashae Garner DEBT MANAGEMENT COUNSELOR, DEBT MANAGEMENT COUNSELOR-C Attending Provider Active Start: October 15, 2024 [...] 2024 End: October 15, 2024 Lashae Garner DEBT MANAGEMENT COUNSELOR, DEBT MANAGEMENT COUNSELOR-C Attending Provider Active Start: October 15, 2024 [...] 2025 End: January 07, 2025 Lashae Garner DEBT MANAGEMENT COUNSELOR, DEBT MANAGEMENT COUNSELOR-C Attending Provider Active Start: January 07, 2025 [...] 2025 End: January 07, 2025 Lashae Garner DEBT MANAGEMENT COUNSELOR, DEBT MANAGEMENT COUNSELOR-C Attending physician Active Start: January 07, 2025 [...] ized section and content) DATE CREATED AUTHOR 04/16/2025 [facility] FOR RECORDS PERTAINING TO PATIENTS WHO [...] BE BASED ON THE PRIMARY CLINICAL RECORDS. [employer] provides no warranty or guarantee of the accuracy or completeness of information in this document.
[2025-04-22 09:15] LABS: Magnesium 2.6 mg/dL (1.5-2.2)
== END ==
LOC: OLS.WHLEAS 05:00
PROVIDERS: PCP Internal Medicine; Visit Provider Internal Medicine
DX: E83.42 Hypomagnesemia (principal)
CPT/HCPCS: 36415; 83735

== ENCOUNTER → 2025-05-13 06:10 | Outpatient (REF) | payer MEDICARE, MEDICAID, SELFPAY ==
[2025-05-13 09:05] LABS: AST(SGOT) 14 U/L (<=31); Alanine Aminotransfer ALT/SGPT 11 U/L (<=34); Albumin, Serum 3.1 g/dL (3.4-4.8); Alkaline Phosphatase 65 U/L (35-104); Bilirubin, Direct 0.14 mg/dL (0.00-0.30); Globulin 0.9 g/dL (2.2-4.2)
== END ==
LOC: OLS.WHLEAS 06:10
PROVIDERS: PCP Internal Medicine; Visit Provider Internal Medicine
DX: I50.22 Chronic systolic (congestive) heart failure (principal); E11.22 Type 2 diabetes mellitus with diabetic chronic kidney disease; N18.32 Chronic kidney disease, stage 3b; I49.9 Cardiac arrhythmia, unspecified; I42.9 Cardiomyopathy, unspecified; E03.9 Hypothyroidism, unspecified
CPT/HCPCS: 36415; 80076; 84443

== ENCOUNTER → 2025-05-18 04:00 | Outpatient (REF) | payer MEDICARE, MEDICAID, SELFPAY ==
--- OUTSIDE RECORDS SUMMARY | 2025-05-18 04:02 | XMS RPT_ITS | CCD ---
Author Organization [facility] Inform ion Partnership [facility] Care Team Providers Care Decision Support Manager Name Role Phone Dr. Grant Whitley [...] Dr. Mendez Referring Provider [phone] Jamar Iasbel Attending Provider [phone] Rachel ZAZUETA, Sharif Primary Care Provider [facility] jamie Hawthorne MD, Dr. Mendez Attending Provider [phone] Rachel ZAZUETA, Dr. Olguin Attending Provider [phone] aRchel ZAZUETA, Sharif Attending Provider Unavailena Ramos MD, [...] MD, Dr. Olguin Attending Physician Pascual ONEILL-Lashae Almodoavr Attending Physician Marine ZAZUETA, Dr. Mendez Attending Physician Sharif Michel Attending Ember e Sharif Ramos Primary Care Unavailable Oleghe OLS, Efewongbe Attending Unavailabl e Oleghe, Efewongbe Primary Care Unavailable Oleghe OLS, Efewongbe Primary Care Unavailabl e Jamar Isabel Attending Unavailable Oleghe, Efewongbe Primary Care Unavailable Pascual FLAVORERLashae Attending Unavailable Oleghe OLS, Efewongbe Attending Unavailabl e Oleghe, Efewongbe Primary Care Unavailable Oleghe OLS, Efewongbe Attending Unavailabl e Oleghe OLS, Efewongbe Primary Care Unavailabl e Oleghe OLS, Efewongbe Attending Unavailabl e Oleghe, Efewongbe Primary Care Unavailable Oleghe OLS, Efewongbe Attending Unavailabl e Oleghe, Efewongbe Primary Care Unavailable Pascual FLAVORER, Lashae Attending Unavailable Oleghe, Efewongbe Primary Care Unavailable Oleghe, Efewongbe Primary Care Unavailable Oleghe, Efewongbe Attending Unavailable Oleghe, Efewongbe Primary Care Unavailable Marine, Andrea Attending Unavailable Oleghe, Efewongbe Primary Care Unavailable [place] FLAVORERLashae Attending Unavailable Oleghe, Efewongbe Primary Care Unavailable [...] Unavailable Oleghe, Efewongbe Primary Care Unavailable Marine, [place] Attending Unavailable Marine, [place] Referring Unavailable Oleghe, Efewongbe Attending Unavailable Oleghe, Efewongbe Primary Care Unavailable Oleghe OLS, Efewongbe Primary Care Unavailabl e Oleghe, Efewongbe Attending Unavailable Marine, Andrea Referring Unavailable Marine, [place] Attending Unavailable Oleghe, Efewongbe Primary Care Unavailable Oleghe OLS, Efewongbe Attending Unavailabl e Oleghe, Efewongbe Primary Care Unavailable Oleghe OLS, Efewongbe Attending Unavailabl e Oleghe, Efewongbe Primary Care Unavailable Oleghe OLS, Efewongbe Attending Unavailabl e Oleghe OLS, Efewongbe Primary Care Unavailabl e Oleghe, Efewongbe Primary Care Unavailable Pascual FLAVORERLashae Attending Unavailable Oleghe OLS, Efewongbe Primary Care Unavailabl e Oleghe OLS, Efewongbe Referring Unavailabl e Marine, Andrea Attending Unavailable Oleghe, Efewongbe Primary Care Unavailable Jose Jton FLAVORERLashae Attending Unavailable Oleghe OLS, Efewongbe Primary Care Unavailabl e Marine, Andrea Attending Unavailable [place] FLAVORERLashae Attending Unavailable Oleghe OLS, Efewongbe Primary Care Unavailabl e Oleghe OLS, Efewongbe Primary Care Unavailabl e Oleghe, Efewongbe Attending Unavailable Oleghe, Efewongbe Primary Care Unavailable Jamar Isabel Attending Unavailable Oleghe, Efewongbe Primary Care Unavailable Marine, [place] Referring Unavailable Marine, [place] Attending Unavailable Oleghe, Efewongbe Primary Care Unavailable Oleghe, Efewongbe Attending Unavailable Oleghe, Efewongbe Primary Care Unavailable Jamar Isabel Attending Unavailable Oleghe OLS, Efewongbe Attending Unavailabl e Oleghe, Efewongbe Primary Care Unavailable Oleghe OLS, Efewongbe Attending Unavailabl e Oleghe, Efewongbe Primary Care Unavailable Allergies Allergy Classification Reported Allergen(s) Allergy Type Date of Onset Reaction(s) Facility (13 sources) Icjvclb-Sjm-Owk Reductase Inhibitor Propensity to adverse reactions 4 muscle aches [facility] (1 source) Tebquqe-Hxs-Csz Reductase Inhibitor Drug allergy (disorder) 5 [facility] Repository Medications Current Medications Medication Drug [...] morning docusate sodium 50 mg / sennosides, senior living 8.6 mg oral tablet (12 sources) Start: [...] 09-29-2023 Chronic Comment on above: [facility]-O ICM; NOT MRI compatible Congestive heart failure; nonhypertensive (19 sources) Congestive heart failure; Translations: [Heart failure, unspecified] Onset: 08-05-2024 06-09-2024 Chronic Coronary atherosclerosis and other heart disease (20 sources) Coronary arteriosclerosis; Translations: [Atherosclerotic heart disease of [place] coronary artery without angina pectoris] Onset: 07-08-2024 [...] on 02-18-2025 TSH Qn 4.180 uIU/mL 0.300-4.200 [facility] Magnesium measurement (mass/ volume)Ordered By: Sharif Ramos on 01-21-2025 Magnesium (Unsp spec) [Mass/Vol] 2.5 mg/dL High 1.5-2.2 [facility] Iron measurement (mass/mass) Ordered By: Sharif Ramos on 01-07-2025 Iron (Unsp spec) [Mass/Mass] 49 ug/dL Low 50-170 [facility] Magnesium measurement (mass/ volume)Ordered By: Sharif Ramos on 01-07-2025 Magnesium (Unsp spec) [Mass/Vol] 2.8 mg/dL High 1.5-2.2 [facility] No Panel InformationOrdered By: Sharif Ramos on 01-07-2025 Unsaturated Iron Binding Capacity 175 ug/dL Low 228-428 [facility] Comment on above: Hemolysis present, R esults could be affected. Serum or plasma ferritin brooke surement (mass/volume)Ordered By: Sharif Ramos on 01-07-2025 Ferritin [Mass/Vol] 151 ng/mL 22-378 [facility] Serum or plasma iron saturat ion measurement (mass fraction)Ordered By: Sharif Ramos on 01-07-2025 Iron saturation [Mass fraction] 21.9 % 13-59 [facility] Comment on above: Previous reported re sult: 22.0 %Edited by: NORMA on 01/07/25:0920 TSH DL <= 0.005 mIU/L QnOrde red By: Sharif Ramos on 01-07-2025 TSH Qn 6.650 uIU/mL High 0.300-4.200 [facility] Anion gap in Serum or Plasma Ordered By: Sharif Ramos on 12-31-2024 Anion gap [Moles/Vol] 10 mmol/L 5-15 [facility] BUN/creatinine ratioOrdered By: Sharif Ramos on 12-31-2024 Urea nitrogen/Creatinine [Mass ratio] 23.3 mg/mg High 10-20 [facility] Carbon dioxide, total [Moles /volume] in Central venous bloodOrdered By: Sharif Ramos on 12-31-2024 CO2 [Moles/Vol] 23.9 mmol/L 21.0-32.0 [facility] Chloride assayOrdered By: Cristina Ramos on 12-31-2024 Chloride [Moles/Vol] 106 mmol/L 98-108 [facility] Glomerular filtration rate ( GFR) estimation/1.73 sq m using serum, plasma, or whole bOrdered By: Sharif Ramos on 12-31-2024 GFR/1.73 sq M.predicted among non-blacks MDRD (S/P/Bld) [Vol rate/Area] 52 mL/min/{1.73_m2} Low >60 [facility] Comment on above: mL/min/1.73m2 CKD-EP I Creatinine Equation (2020) Magnesium measurement (mass/ volume)Ordered By: Sharif Ramos on 12-31-2024 Magnesium (Unsp spec) [Mass/Vol] 2.4 mg/dL High 1.5-2.2 [facility] Potassium measurement (mass/ volume)Ordered By: Sharif Ramos on 12-31-2024 Potassium (Unsp spec) [Mass/Vol] 4.0 mmol/L 3.3-5.1 [facility] Serum creatinine measurement (mass/volume)Ordered By: Sharif Ramos on 12-31-2024 Creatinine [Mass/Vol] 1.04 mg/dL 0.70-1.20 [facility] Serum glucose measurement (m ass/volume)Ordered By: Sharif Ramos on 12-31-2024 Glucose [Mass/Vol] 103 mg/dL High 70-99 [facility] Serum or plasma calcium clarke urement (mass/volume)Ordered By: Cristinarichie Pereiraroxannagregg on 12-31-2024 Calcium [Mass/Vol] 8.9 mg/dL 7.6-11.0 [facility] Serum or plasma urea nitroge n measurement (mass/volume)Ordered By: Sharif Pereiraroxannagregg on 12-31-2024 Urea nitrogen [Mass/Vol] 24 mg/dL High 4-19 [facility] Sodium levelOrdered By: Cristinakarson omalley Randallroxannagregg on 12-31-2024 Sodium [Moles/Vol] 140 mmol/L 133-145 [facility] Absolute lymphocyte countOrd ered By: Snowzanemike Pereiraroxannagregg on 12-03-2024 Lymphocytes Auto (Unsp spec) [#/Vol] 1.35 10*3/uL 0.83-4.51 [facility] Absolute neutrophil countOrd ered By: Sharif Pereiraroxannagregg on 12-03-2024 Neutrophils (Bld) [#/Vol] 3.5 10*3/uL 2.0-7.7 [facility] Anion gap in Serum or Plasma Ordered By: Sharif Ramos on 12-03-2024 Anion gap [Moles/Vol] 11 mmol/L 5-15 [facility] Automated lymphocyte count a s percentage of total leukocytesOrdered By: Sharif Ramos on 12-03-2024 Lymphocytes/100 WBC Auto (Unsp spec) 23.2 % 19-41 [facility] BUN/creatinine ratioOrdered By: Sharif Ramos on 12-03-2024 Urea nitrogen/Creatinine [Mass ratio] 29.1 mg/mg High 10-20 [facility] Basophil percentageOrdered B y: Snowzanemike Ramos on 12-03-2024 Basophils/100 WBC (Bld) 0.3 % 0-1 [facility] Carbon dioxide, total [Moles /volume] in Central venous bloodOrdered By: Sharif Ramos on 12-03-2024 CO2 [Moles/Vol] 24.7 mmol/L 21.0-32.0 [facility] Chloride assayOrdered By: Cristina Ramos on 12-03-2024 Chloride [Moles/Vol] 105 mmol/L 98-108 [facility] Eosinophil percentageOrdered By: Sharif Ramos on 12-03-2024 Eosinophils/100 WBC (Bld) 7.0 % High 0-5 [facility] Erythrocyte distribution wid th ratioOrdered By: Sharif Ramos on 12-03-2024 Erythrocyte distribution width (RBC) [Ratio] 13.1 % 11.6-14.6 [facility] Erythrocyte distribution wid th standard deviationOrdered By: Sharif Ramos on 12-03-2024 Erythrocyte distribution width (RBC) [Ratio] 46.8 fl High 35.1-43.9 [facility] Glomerular filtration rate ( GFR) estimation/1.73 sq m using serum, plasma, or whole bOrdered By: Sharif Ramos on 12-03-2024 GFR/1.73 sq M.predicted among non-blacks MDRD (S/P/Bld) [Vol rate/Area] 47 mL/min/{1.73_m2} Low >60 [facility] Comment on above: mL/min/1.73m2 CKD-EP I Creatinine Equation (2020) Hematocrit Auto (Bld) [Volum e fraction]Ordered By: Sharif Ramos on 12-03-2024 Hematocrit (Bld) [Volume fraction] 40.2 % 37-47 [facility] Hemoglobin measurementOrdere d By: Sharif Ramos on 12-03-2024 Hemoglobin (Bld) [Mass/Vol] 13.1 g/dL 12.0-15.0 [facility] Immature granulocytes/100 WB C Auto (Bld)Ordered By: Sharif Ramos on 12-03-2024 Immature granulocytes/100 WBC (Bld) 0.300 % 0.0-0.9 [facility] Comment on above: IG% - Immature Granu locytes (promyelocytes, myelocytes and metamyelocytes) > 1% indicates that a LEFT SHIFT is Present. MCV (mean corpuscular volume ) determinationOrdered By: Sharif Ramos on 12-03-2024 MCV (RBC) [Entitic vol] 96.9 fL 81-99 [facility] Mean corpuscular hemoglobin (MCH) determinationOrdered By: Sharif Ramos on 12-03-2024 MCH (RBC) [Entitic mass] 31.6 pg 27.0-32.0 [facility] Mean corpuscular hemoglobin concentration (MCHC) determinationOrdered By: Sharif Ramos on 12-03-2024 MCHC (RBC) [Mass/Vol] 32.6 g/dL 32-36 [facility] Mean platelet volume determi nationOrdered By: Sharif Ramos on 12-03-2024 Platelet mean volume (Bld) [Entitic vol] 10.4 fL 6.2-12.0 [facility] Monocyte percentageOrdered B y: Sharif Ramos on 12-03-2024 Monocytes/100 WBC (Bld) 9.6 % 0-10 [facility] Neutrophil percentageOrdered By: Sharif Ramos on 12-03-2024 Neutrophils/100 WBC (Bld) 59.6 % 47-70 [facility] Nucleated red blood cell per centageOrdered By: Sharif Ramos on 12-03-2024 Nucleated RBC/100 WBC (Bld) [Ratio] 0 % 0-5 [facility] Platelet countOrdered By: Cristina lammike Ramos on 12-03-2024 Platelets (Bld) [#/Vol] 317 10*3/uL 150-450 [facility] Potassium measurement (mass/ volume)Ordered By: Sharif Ramos on 12-03-2024 Potassium (Unsp spec) [Mass/Vol] 4.0 mmol/L 3.3-5.1 [facility] RBC Auto (Bld) [#/Vol]Ordere d By: Sharif Ramos on 12-03-2024 RBC (Bld) [#/Vol] 4.15 10*6/uL Low 4.2-5.4 [facility] Serum creatinine measurement (mass/volume)Ordered By: Sharif Ramos on 12-03-2024 Creatinine [Mass/Vol] 1.13 mg/dL 0.70-1.20 [facility] Serum glucose measurement (m ass/volume)Ordered By: Snowzanemike Pereiraroxannagregg on 12-03-2024 Glucose [Mass/Vol] 102 mg/dL High 70-99 [facility] Serum or plasma calcium clarke urement (mass/volume)Ordered By: Snowzanemike Pereiraroxannagregg on 12-03-2024 Calcium [Mass/Vol] 9.1 mg/dL 7.6-11.0 [facility] Serum or plasma urea nitroge n measurement (mass/volume)Ordered By: Sharif Ramos on 12-03-2024 Urea nitrogen [Mass/Vol] 33 mg/dL High 4-19 [facility] Sodium levelOrdered By: Snow shahram Randallroxannagregg on 12-03-2024 Sodium [Moles/Vol] 141 mmol/L 133-145 [facility] White blood cell (WBC) count Ordered By: Sharif Ramos on 12-03-2024 WBC (Bld) [#/Vol] 5.8 10*3/uL 4.4-11.0 [facility] Sodium levelOrdered By: Snow shahram Rachel on 11-05-2024 Sodium [Moles/Vol] 140 mmol/L 133-145 [facility] Magnesium measurement (mass/ volume)Ordered By: Sharif Ramos on 10-08-2024 Magnesium (Unsp spec) [Mass/Vol] 2.2 mg/dL 1.5-2.2 [facility] TSH DL <= 0.005 mIU/L QnOrde red By: Sharif Ramos on 10-08-2024 TSH Qn 1.270 uIU/mL 0.300-4.200 [facility] Absolute lymphocyte countOrd ered By: Sharif Ramos on 08-13-2024 Lymphocytes Auto (Unsp spec) [#/Vol] 1.27 10*3/uL 0.83-4.51 [facility] Absolute neutrophil countOrd ered By: Sharif Ramos on 08-13-2024 Neutrophils (Bld) [#/Vol] 2.4 10*3/uL 2.0-7.7 [facility] Anion gap in Serum or Plasma Ordered By: Sharif Ramos on 08-13-2024 Anion gap [Moles/Vol] 12 mmol/L 5-15 [facility] Automated lymphocyte count a s percentage of total leukocytesOrdered By: Sharif Ramos on 08-13-2024 Lymphocytes/100 WBC Auto (Unsp spec) 29.1 % 19-41 [facility] BUN/creatinine ratioOrdered By: Sharif Ramos on 08-13-2024 Urea nitrogen/Creatinine [Mass ratio] 27.5 mg/mg High 10-20 [facility] Basophil percentageOrdered B y: Sharif Ramos on 08-13-2024 Basophils/100 WBC (Bld) 0.5 % 0-1 [facility] Bilirubin Test strip Ql (U)O rdered By: Sharif Ramos on 08-13-2024 Bilirubin Ql (U) Negative Negative [facility] Bilirubin, totalOrdered By: Sharif Rmaos on 08-13-2024 Bilirubin [Mass/Vol] 0.41 mg/dL 0.00-1.30 [facility] Carbon dioxide, total [Moles /volume] in Central venous bloodOrdered By: Sharif Ramos on 08-13-2024 CO2 [Moles/Vol] 23.4 mmol/L 21.0-32.0 [facility] Chloride assayOrdered By: Cristina Ramos on 08-13-2024 Chloride [Moles/Vol] 117 mmol/L High 98-108 [facility] Eosinophil percentageOrdered By: Sharif Ramos on 08-13-2024 Eosinophils/100 WBC (Bld) 7.8 % High 0-5 [facility] Erythrocyte distribution wid th (RBC) [Ratio]Ordered By: Sharif Ramos on 08-13-2024 Erythrocyte distribution width (RBC) [Entitic vol] 45.1 fL High 35.1-43.9 [facility] Erythrocyte distribution wid th ratioOrdered By: Sharif Ramos on 08-13-2024 Erythrocyte distribution width (RBC) [Ratio] 12.8 % 11.6-14.6 [facility] Erythrocyte distribution wid th standard deviationOrdered By: Sharif Ramos on 08-13-2024 Erythrocyte distribution width (RBC) [Ratio] 45.1 fl High 35.1-43.9 [facility] GFR/1.73 sq M.predicted lisbet g non-blacks MDRD (S/P/Bld) [Vol rate/Area]Ordered By: Sharif Ramos on 08-13-2024 Estimated GFR (MDRD) Non-Af Amer 52 Low >60 [facility] Comment on above: mL/min/1.73m2 CKD-EP I Creatinine Equation (2020) Glomerular filtration rate ( GFR) estimation/1.73 sq m using serum, plasma, or whole bOrdered By: Sharif Ramos on 08-13-2024 GFR/1.73 sq M.predicted among non-blacks MDRD (S/P/Bld) [Vol rate/Area] 52 mL/min/{1.73_m2} Low >60 [facility] Comment on above: mL/min/1.73m2 CKD-EP I Creatinine Equation (2020) Glucose Ql (U)Ordered By: Cristina Ramos on 08-13-2024 Glucose (U) [Mass/Vol] 1000 mg/dL High Normal [facility] Hematocrit Auto (Bld) [Volum e fraction]Ordered By: Sharif Ramos on 08-13-2024 Hematocrit (Bld) [Volume fraction] 35.9 % Low 37-47 [facility] Hemoglobin measurementOrdere d By: Sharif Ramos on 08-13-2024 Hemoglobin (Bld) [Mass/Vol] 11.8 g/dL Low 12.0-15.0 [facility] Immature granulocytes/100 WB C Auto (Bld)Ordered By: Sharif Ramos on 08-13-2024 Immature granulocytes/100 WBC (Bld) 0.200 % 0.0-0.9 [facility] Comment on above: IG% - Immature Granu locytes (promyelocytes, myelocytes and metamyelocytes) > 1% indicates that a LEFT SHIFT is Present. Ketones Test strip Ql (U)Ord ered By: Sharif Ramos on 08-13-2024 Ketones Ql (U) Negative Negative [facility] Laboratory - Chemistry and C hemistry - challengeOrdered By: Sharif Ramos on 08-13-2024 AST [Catalytic activity/Vol] 16 U/L <32 [facility] Lymphocytes Auto (Unsp spec) [#/Vol]Ordered By: Sharif Ramos on 08-13-2024 Lymphocytes (Bld) [#/Vol] 1.27 10*3/uL 0.83-4.51 [facility] Lymphocytes/100 WBC Auto (Un sp spec)Ordered By: Sharif Ramos on 08-13-2024 Lymphocytes/100 WBC (Bld) 29.1 % 19-41 [facility] MCV (mean corpuscular volume ) determinationOrdered By: Sharif Ramos on 08-13-2024 MCV (RBC) [Entitic vol] 96.2 fL 81-99 [facility] Mean corpuscular hemoglobin (MCH) determinationOrdered By: Sharif Ramos on 08-13-2024 MCH (RBC) [Entitic mass] 31.6 pg 27.0-32.0 [facility] Mean corpuscular hemoglobin concentration (MCHC) determinationOrdered By: Sharif Ramos on 08-13-2024 MCHC (RBC) [Mass/Vol] 32.9 g/dL 32-36 [facility] Mean platelet volume determi nationOrdered By: Sharif Ramos on 08-13-2024 Platelet mean volume (Bld) [Entitic vol] 10.2 fL 6.2-12.0 [facility] Monocyte percentageOrdered B y: Sharif Ramos on 08-13-2024 Monocytes/100 WBC (Bld) 8.5 % 0-10 [facility] Neutrophil percentageOrdered By: Sharif Ramos on 08-13-2024 Neutrophils/100 WBC (Bld) 53.9 % 47-70 [facility] Nitrite Test strip Ql (U)Ord ered By: Sharif Ramos on 08-13-2024 Nitrite Ql (U) Negative Negative [facility] Nucleated red blood cell per centageOrdered By: Sharif Ramos on 08-13-2024 Nucleated RBC/100 WBC (Bld) [Ratio] 0 % 0-5 [facility] Platelet countOrdered By: Cristina Ramos on 08-13-2024 Platelets (Bld) [#/Vol] 292 10*3/uL 150-450 [facility] Potassium (Unsp spec) [Mass/ Vol]Ordered By: Sharif Ramos on 08-13-2024 Potassium [Moles/Vol] 3.8 mmol/L 3.3-5.1 [facility] Potassium measurement (mass/ volume)Ordered By: Sharif Ramos on 08-13-2024 Potassium (Unsp spec) [Mass/Vol] 3.8 mmol/L 3.3-5.1 [facility] Protein Test strip Ql (U)Ord ered By: Sharif Ramos on 08-13-2024 Protein Ql (U) 15 mg/dl High Negative [facility] RBC Auto (Bld) [#/Vol]Ordere d By: Sharif Ramos on 08-13-2024 RBC (Bld) [#/Vol] 3.73 10*6/uL Low 4.2-5.4 [facility] Serum creatinine measurement (mass/volume)Ordered By: Sharif Ramos on 08-13-2024 Creatinine [Mass/Vol] 1.03 mg/dL 0.70-1.20 [facility] Serum globulin measurementOr dered By: Sharif Ramos on 08-13-2024 Globulin (S) [Mass/Vol] 2.3 g/dL 2.2-4.2 [facility] Serum glucose measurement (m ass/volume)Ordered By: Sharif Ramos on 08-13-2024 Glucose [Mass/Vol] 88 mg/dL 70-99 [facility] Serum or plasma alanine contreras otransferase (ALT) measurementOrdered By: Sharif Ramos on 08-13-2024 ALT [Catalytic activity/Vol] 8 U/L <35 [facility] Serum or plasma albumin clarke urement (mass/volume)Ordered By: Sharif Ramos on 08-13-2024 Albumin [Mass/Vol] 3.3 g/dL Low 3.4-4.8 [facility] Serum or plasma albumin/glob ulin mass ratioOrdered By: Sharif Ramos on 08-13-2024 Albumin/Globulin [Mass ratio] 1.4 {ratio} 0.9-2.4 [facility] Serum or plasma alkaline timi sphatase measurementOrdered By: Sharif Ramos on 08-13-2024 ALP [Catalytic activity/Vol] 64 U/L 35-104 [facility] Serum or plasma calcium clarke urement (mass/volume)Ordered By: Sharif Ramos on 08-13-2024 Calcium [Mass/Vol] 8.7 mg/dL 7.6-11.0 [facility] Serum or plasma urea nitroge n measurement (mass/volume)Ordered By: Sharif Ramos on 08-13-2024 Urea nitrogen [Mass/Vol] 28 mg/dL High 4-19 [facility] Sodium levelOrdered By: Snow Ramos on 08-13-2024 Sodium [Moles/Vol] 153 mmol/L High 133-145 [facility] Total proteinOrdered By: Milton Ramos on 08-13-2024 Protein [Mass/Vol] 5.6 g/dL Low 5.9-8.4 [facility] Urine blood detectionOrdered By: Sharif Ramos on 08-13-2024 Urine Occult Blood Negative Negative [facility] Urine clarityOrdered By: Milton Ramos on 08-13-2024 Clarity (U) Sl. Cloudy Clear [facility] Urine color determinationOrd ered By: Sharif Ramos on 08-13-2024 Color (U) Yellow Yellow [facility] Urine cultureOrdered By: Milton Ramos on 08-13-2024 Bacteria identified Cx Nom (U) Positive Abnormal [facility] Urine glucose detectionOrder ed By: Sharif Ramos on 08-13-2024 Glucose Ql (U) 1000 mg/dl High Normal [facility] Urine leukocyte esterase det ection by dipstickOrdered By: Sharif Ramos on 08-13-2024 Leukocyte esterase Test strip Ql (U) Negative Negative [facility] Urine pHOrdered By: Mary gregg Randalljennifer on 08-13-2024 pH (U) 6.0 [pH] 5.0 - 8.0 [facility] Urine specific gravity measu rementOrdered By: Sharif Pereiraroxannagregg on 08-13-2024 Specific gravity (U) [Rel density] 1.020 1.002-1.030 [facility] Urine urobilinogen measureme ntOrdered By: Sharif Pereiraroxannagregg on 08-13-2024 Urobilinogen Ql (U) Normal mg/dl Normal [facility] Urobilinogen Ql (U)Ordered B y: Evonmike Pereiraroxannagregg on 08-13-2024 Urine Urobilinogen Normal mg/dl Normal [facility] White blood cell (WBC) count Ordered By: Sharif Pereiraroxannagregg on 08-13-2024 WBC (Bld) [#/Vol] 4.4 10*3/uL 4.4-11.0 [facility] Pacemaker Checkon 07-09-2024 Pacemaker Check [facility] [employer] [facility] [address] [place] [address] Pacemaker Check Date of Service: 07/09/24 141 MR#: [id number] Acct: [id number] Name: SHERRIE LOZANO Rep #: [id number] : 1935 From: Abby Butts Age/Sex: 89/F Location: [facility] Status: Signed Billing Codes ICD Device Billin ICD Dev Prog Eval, Multi Assessment and Plan Assessment and Plan (1) Ischemic cardiomyopathy: Status: Acute (2) ICD (implantable cardioverter-defibrill ator) in place: Status: Acute (3) CHF (congestive heart failure): Status: Acute 07/09/24 1413 Date Abby Butts Cosigner Signature: Date (if applicable) CC: Normal [facility] Direct serum free thyroxine (FT4) measurementOrdered By: Sharif Ramos on 06-26-2024 Free T4 [Mass/Vol] 1.34 ng/dL 0.76-1.46 [facility] TSH QnOrdered By: Sharif Ramos on 06-26-2024 Thyroid Stimulating Hormone (TSH) 2.090 uIU/mL 0.358-3.740 [facility] 12 [place] [facility] [place]-18[place] 12 Lead EKG performed by [address] [address] 12 Lead EKG performed [place] [facility] [place] 06/18/24 1250 MR#: [id number] Acct: [id number] Name: SHERRIE LOZANO Rep #: [id number] : 1935 89 From: Andrea Hawthorne MD Attending Dr: Dr. Andrea Hawthorne MD Status: DEP A MB Ordering Dr: Andrea Hawthorne MD Date: 06/18/24 Location: [facility] Sex: F C Admitted: BMS/12 [place] [facility] [place] Interpretation ----Electronic ventricular pacemaker Pacemaker ECG, No further analysis Electronically signed on 06/23/2024 at 08:30 by Andrea Hawthorne [employer] Version [id number] 06/23/24 0833 Date Andrea Hawthorne MD CC: Sharif Ramos MD Date Dictated: 06/18/241249 Date Transcribed: 06/18/241249 Touring Production Manager: [place] Signed Normal [facility] Cardiology Visit Reporton Cardiology Visit Report [facility] [address] [place], [place] [address] OFFICE VISIT Date of Service: 06/18/24 MR#: [id number] Acct: [id number] Name: SHERRIE LOZANO Rep #: [id number] : 1935 Provider: Dr. Andrea Hawthorne MD Age/Sex: 89/F [place] [facility] [place] Status: Signed HPI HPI History of Present Illness Details: Pleasant 89-year-old lady who has recently relocated from [facility] here. 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 Normal [facility] Absolute neutrophil countOrd ered By: Sharif Ramos on 06-06-2024 Neutrophils (Bld) [#/Vol] 3.6 10*3/uL 2.0-7.7 [facility] Basophil percentageOrdered B y: Sharif Ramos on 06-06-2024 Basophils/100 WBC (Bld) 0.5 % 0-1 [facility] Blood urea nitrogen (BUN)/cr eatinine ratioOrdered By: Sharif Ramos on 06-06-2024 Urea nitrogen/Creatinine [Mass ratio] 26.6 mg/mg High 10-20 [facility] Carbon dioxide measurementOr dered By: Sharif Ramos on 06-06-2024 CO2 [Moles/Vol] 25.0 mmol/L 21.0-32.0 [facility] Chloride measurementOrdered By: Sharif Ramos on 06-06-2024 Chloride [Moles/Vol] 110 mmol/L High 98-107 [facility] Eosinophil percentageOrdered By: Sharif Ramos on 06-06-2024 Eosinophils/100 WBC (Bld) 6.2 % High 0-5 [facility] Erythrocyte distribution wid th (RBC) [Ratio]Ordered By: Sharif Ramos on 06-06-2024 Erythrocyte distribution width (RBC) [Entitic vol] 48.0 fL High 35.1-43.9 [facility] Erythrocyte distribution wid th ratioOrdered By: richie Rmaos on 06-06-2024 Erythrocyte distribution width (RBC) [Ratio] 13.2 % 11.6-14.6 [facility] Estimated glomerular filtrat ion rate (GFR) AmericanOrdered By: Sharif Ramos on 06-06-2024 Estimated GFR (MDRD) Amer 61 mL/min >60 [facility] Comment on above: GFR Calc Glomerular filtration rate ( GFR) estimationOrdered By: Sharif Ramos on 06-06-2024 Estimated GFR (MDRD) Non-Af Amer 50 mL/min Low >60 [facility] Comment on above: Non- GFR Calc Glucose measurementOrdered B y: Sharif Ramos on 06-06-2024 Glucose [Mass/Vol] 98 mg/dL 74-106 [facility] Hematocrit Auto (Bld) [Volum e fraction]Ordered By: [facility], Atlantamike Ramos on 06-06-2024 Hematocrit (Bld) [Volume fraction] 39.7 % 37-47 [facility] Hemoglobin measurementOrdere d By: Sharif Ramos on 06-06-2024 Hemoglobin (Bld) [Mass/Vol] 12.9 g/dL 12.0-15.0 [facility] Immature granulocytes/100 WB C Auto (Bld)Ordered By: richie Ramos on 06-06-2024 Immature granulocytes/100 WBC (Bld) 0.300 % 0.0-0.9 [facility] Comment on above: IG% - Immature Granu locytes (promyelocytes, myelocytes and metamyelocytes) > 1% indicates that a LEFT SHIFT is Present. Lymphocytes Auto (Unsp spec) [#/Vol]Ordered By: karsonburtmike Ramos on 06-06-2024 Lymphocytes (Bld) [#/Vol] 1.31 10*3/uL 0.83-4.51 [facility] Lymphocytes/100 WBC Auto (Un sp spec)Ordered By: Sharif Ramos on 06-06-2024 Lymphocytes/100 WBC (Bld) 22.4 % 19-41 [facility] MCV (mean corpuscular volume ) determinationOrdered By: Sharif Ramos on 06-06-2024 MCV (RBC) [Entitic vol] 99.0 fL 81-99 [facility] Mean corpuscular hemoglobin (MCH) determinationOrdered By: Sharif Ramos on 06-06-2024 MCH (RBC) [Entitic mass] 32.2 pg High 27.0-32.0 [facility] Mean corpuscular hemoglobin concentration (MCHC) determinationOrdered By: Sharif Ramos on 06-06-2024 MCHC (RBC) [Mass/Vol] 32.5 g/dL 32-36 [facility] Mean platelet volume determi nationOrdered By: Sharif Ramos on 06-06-2024 Platelet mean volume (Bld) [Entitic vol] 10.4 fL 6.2-12.0 [facility] Monocyte percentageOrdered B y: Sharif Ramos on 06-06-2024 Monocytes/100 WBC (Bld) 9.2 % 0-10 [facility] Neutrophil percentageOrdered By: Sharif Ramos on 06-06-2024 Neutrophils/100 WBC (Bld) 61.4 % 47-70 [facility] Nucleated red blood cell per centageOrdered By: Sharif Ramos on 06-06-2024 Nucleated RBC/100 WBC (Bld) [Ratio] 0 % 0-5 [facility] Platelet countOrdered By: Cristina Ramos on 06-06-2024 Platelets (Bld) [#/Vol] 328 10*3/uL 150-450 [facility] Potassium measurementOrdered By: Sharif Ramos on 06-06-2024 Potassium [Moles/Vol] 4.1 mmol/L 3.5-5.1 [facility] RBC Auto (Bld) [#/Vol]Ordere d By: Sharif Ramos on 06-06-2024 RBC (Bld) [#/Vol] 4.01 10*6/uL Low 4.2-5.4 [facility] Serum anion gap measurementO rdered By: Sharif Ramos on 06-06-2024 Anion gap [Moles/Vol] 7 mmol/L 5-15 [facility] Serum or plasma calcium clarke urement (mass/volume)Ordered By: Sharif Ramos on 06-06-2024 Calcium [Mass/Vol] 9.2 mg/dL 8.5-10.1 [facility] Serum or plasma creatinine m easurement (mass/volume)Ordered By: Sharif Ramos on 06-06-2024 Creatinine [Mass/Vol] 1.09 mg/dL High 0.55-1.02 [facility] Comment on above: The validity of the calculated GFR & GFRAA in patients over 70 years has not been determined. Clinical correlation is essential. Serum or plasma urea nitroge n measurement (mass/volume)Ordered By: Sharif Ramos on 06-06-2024 Urea nitrogen [Mass/Vol] 29 mg/dL High 7-18 [facility] Sodium levelOrdered By: Snow Ramos on 06-06-2024 Sodium [Moles/Vol] 142 mmol/L 136-145 [facility] White blood cell (WBC) count Ordered By: Sharif Ramos on 06-06-2024 WBC (Bld) [#/Vol] 5.8 10*3/uL 4.4-11.0 [facility] Direct serum free thyroxine (FT4) measurementOrdered By: Sharif Ramos on 05-15-2024 Free T4 [Mass/Vol] 1.35 ng/dL 0.76-1.46 [facility] TSH QnOrdered By: Sharif Ramos on 05-15-2024 Thyroid Stimulating Hormone (TSH) 2.920 uIU/mL 0.358-3.740 [facility] Absolute neutrophil countOrd ered By: Sharif Ramos on 05-07-2024 Neutrophils (Bld) [#/Vol] 3.2 10*3/uL 2.0-7.7 [facility] Basophil percentageOrdered B y: Sharif Ramos on 05-07-2024 Basophils/100 WBC (Bld) 0.4 % 0-1 [facility] Blood urea nitrogen (BUN)/cr eatinine ratioOrdered By: Sharif Ramos on 05-07-2024 Urea nitrogen/Creatinine [Mass ratio] 30.2 mg/mg High 10-20 [facility] Carbon dioxide measurementOr dered By: Sharif Ramos on 05-07-2024 CO2 [Moles/Vol] 26.0 mmol/L 21.0-32.0 [facility] Chloride measurementOrdered By: Sharif Ramos on 05-07-2024 Chloride [Moles/Vol] 113 mmol/L High 98-107 [facility] Eosinophil percentageOrdered By: Sharif Ramos on 05-07-2024 Eosinophils/100 WBC (Bld) 6.8 % High 0-5 [facility] Erythrocyte distribution wid th (RBC) [Ratio]Ordered By: Sharif Ramos on 05-07-2024 Erythrocyte distribution width (RBC) [Entitic vol] 49.6 fL High 35.1-43.9 [facility] Erythrocyte distribution wid th ratioOrdered By: Sharif Ramos on 05-07-2024 Erythrocyte distribution width (RBC) [Ratio] 13.6 % 11.6-14.6 [facility] Estimated glomerular filtrat ion rate (GFR) AmericanOrdered By: Sharif Ramos on 05-07-2024 Estimated GFR (MDRD) Amer 57 mL/min Low >60 [facility] Comment on above: GFR Calc Glomerular filtration rate ( GFR) estimationOrdered By: Sharif Ramos on 05-07-2024 Estimated GFR (MDRD) Non-Af Amer 47 mL/min Low >60 [facility] Comment on above: Non- GFR Calc Glucose measurementOrdered B y: Sharif Ramos on 05-07-2024 Glucose [Mass/Vol] 110 mg/dL High 74-106 [facility] Comment on above: Fasting Glucose resu lt from 100 to 125 mg/dL suggests IMPAIRED HOMEOSTASIS per A.D.A. criteria. Hematocrit Auto (Bld) [Volum e fraction]Ordered By: Sharif Ramos on 05-07-2024 Hematocrit (Bld) [Volume fraction] 34.6 % Low 37-47 [facility] Hemoglobin measurementOrdere d By: Sharif Ramos on 05-07-2024 Hemoglobin (Bld) [Mass/Vol] 11.5 g/dL Low 12.0-15.0 [facility] Immature granulocytes/100 WB C Auto (Bld)Ordered By: Sharif Ramos on 05-07-2024 Immature granulocytes/100 WBC (Bld) 0.400 % 0.0-0.9 [facility] Comment on above: IG% - Immature Granu locytes (promyelocytes, myelocytes and metamyelocytes) > 1% indicates that a LEFT SHIFT is Present. Lymphocytes Auto (Unsp spec) [#/Vol]Ordered By: Sharif Ramos on 05-07-2024 Lymphocytes (Bld) [#/Vol] 1.10 10*3/uL 0.83-4.51 [facility] Lymphocytes/100 WBC Auto (Un sp spec)Ordered By: Sharif Ramos on 05-07-2024 Lymphocytes/100 WBC (Bld) 21.5 % 19-41 [facility] MCV (mean corpuscular volume ) determinationOrdered By: Sharif Ramos on 05-07-2024 MCV (RBC) [Entitic vol] 98.6 fL 81-99 [facility] Mean corpuscular hemoglobin (MCH) determinationOrdered By: Sharif Ramos on 05-07-2024 MCH (RBC) [Entitic mass] 32.8 pg High 27.0-32.0 [facility] Mean corpuscular hemoglobin concentration (MCHC) determinationOrdered By: Sharif Ramos on 05-07-2024 MCHC (RBC) [Mass/Vol] 33.2 g/dL 32-36 [facility] Mean platelet volume determi nationOrdered By: Sharif Ramos on 05-07-2024 Platelet mean volume (Bld) [Entitic vol] 10.6 fL 6.2-12.0 [facility] Monocyte percentageOrdered B y: Sharif Oleroxannagregg on 05-07-2024 Monocytes/100 WBC (Bld) 9.2 % 0-10 [facility] Neutrophil percentageOrdered By: Cristinakarsonshahram Randallroxannagregg on 05-07-2024 Neutrophils/100 WBC (Bld) 61.7 % 47-70 [facility] Nucleated red blood cell per centageOrdered By: Sharif Pereiraroxannagregg on 05-07-2024 Nucleated RBC/100 WBC (Bld) [Ratio] 0 % 0-5 [facility] Platelet countOrdered By: Cristina karsonshahram Ramos on 05-07-2024 Platelets (Bld) [#/Vol] 303 10*3/uL 150-450 [facility] Potassium measurementOrdered By: Sharif Ramos on 05-07-2024 Potassium [Moles/Vol] 4.1 mmol/L 3.5-5.1 [facility] RBC Auto (Bld) [#/Vol]Ordere d By: Snowzanemike Pereiraroxannagregg on 05-07-2024 RBC (Bld) [#/Vol] 3.51 10*6/uL Low 4.2-5.4 [facility] Serum anion gap measurementO rdered By: Snowzanemike Pereiraroxannagregg on 05-07-2024 Anion gap [Moles/Vol] 4 mmol/L Low 5-15 [facility] Serum or plasma calcium clarke urement (mass/volume)Ordered By: Sharif Ramos on 05-07-2024 Calcium [Mass/Vol] 9.0 mg/dL 8.5-10.1 [facility] Serum or plasma creatinine m easurement (mass/volume)Ordered By: Sharif Ramos on 05-07-2024 Creatinine [Mass/Vol] 1.16 mg/dL High 0.55-1.02 [facility] Comment on above: The validity of the calculated GFR & GFRAA in patients over 70 years has not been determined. Clinical correlation is essential. Serum or plasma urea nitroge n measurement (mass/volume)Ordered By: Sharif Ramos on 05-07-2024 Urea nitrogen [Mass/Vol] 35 mg/dL High 7-18 [facility] Sodium levelOrdered By: Snow shahram Randalljennifer on 05-07-2024 Sodium [Moles/Vol] 143 mmol/L 136-145 [facility] White blood cell (WBC) count Ordered By: Sharif Ramos on 05-07-2024 WBC (Bld) [#/Vol] 5.1 10*3/uL 4.4-11.0 [facility] COVID-19 virus antigen assay Ordered By: Tammi Frost on 10-10-2023 SARS-CoV-2 (COVID-19) Ag IA.rapid Ql (Resp) [facility] Basophil percentageOrdered B y: Tammi Frost on 10-09-2023 Chloride [Moles/Vol] 109 mmol/L 98-107 [facility] Glucose [Mass/Vol] 100 mg/dL 74-106 [facility] Comment on above: Fasting Glucose resu lt from 100 to 125 mg/dL suggests IMPAIRED HOMEOSTASIS per A.D.A. criteria. Hemoglobin (Bld) [Mass/Vol] 10.7 g/dL 12.0-15.0 [facility] Potassium [Moles/Vol] 4.4 mmol/L 3.5-5.1 [facility] Sodium [Moles/Vol] 139 mmol/L 136-145 [facility] WBC (Bld) [#/Vol] 8.3 10*3/uL 4.4-11.0 [facility] Determination of erythrocyte mean corpuscular volume (MCV)Ordered By: Tammi Frost on 10-09-2023 MCV (RBC) [Entitic vol] 95.8 fL 81-99 [facility] Erythrocyte distribution wid th ratioOrdered By: Tammi Frost on 10-09-2023 Erythrocyte distribution width (RBC) [Ratio] 16.0 % 11.6-14.6 [facility] Erythrocyte distribution wid th standard deviationOrdered By: Tammi Frost on 10-09-2023 Erythrocyte distribution width (RBC) [Entitic vol] 57.1 fL 35.1-43.9 [facility] Hematocrit Auto (Bld) [Volum e fraction]Ordered By: Tammi Frost on 10-09-2023 Hematocrit (Bld) [Volume fraction] 33.9 % 37-47 [facility] Laboratory - Chemistry and C hemistry - challengeOrdered By: Tammi Frost on 10-09-2023 CO2 [Moles/Vol] 27.0 mmol/L 21.0-32.0 [facility] Urea nitrogen/Creatinine [Mass ratio] 40.4 mg/mg 10-20 [facility] Laboratory - Hematology and Cell countsOrdered By: Tammi rFost on 10-09-2023 MCH (RBC) [Entitic mass] 30.2 pg 27.0-32.0 [facility] MCHC (RBC) [Mass/Vol] 31.6 g/dL 32-36 [facility] Platelet mean volume (Bld) [Entitic vol] 9.9 fL 6.2-12.0 [facility] Platelets (Bld) [#/Vol] 450 10*3/uL 150-450 [facility] No Panel InformationOrdered By: Tammi Frost on 10-09-2023 Estimated Creatinine Clearance Calc 26.00 ml/min [facility] Estimated GFR (MDRD) Amer 70 mL/min >60 [facility] Comment on above: GFR Calc Estimated GFR (MDRD) Non-Af Amer 58 mL/min >60 [facility] Comment on above: Non- GFR Calc RBC Auto (Bld) [#/Vol]Ordere d By: Tammi Frost on 10-09-2023 RBC (Bld) [#/Vol] 3.54 10*6/uL 4.2-5.4 [facility] Serum or plasma calcium clarke urement (mass/volume)Ordered By: Tammi Frost on 10-09-2023 Calcium [Mass/Vol] 8.7 mg/dL 8.5-10.1 [facility] Serum or plasma creatinine m easurement (mass/volume)Ordered By: Tammi Frost on 10-09-2023 Creatinine [Mass/Vol] 0.97 mg/dL 0.55-1.02 [facility] Comment on above: The validity of the calculated GFR & GFRAA in patients over 70 years has not been determined. Clinical correlation is essential. Serum or plasma urea nitroge n measurement (mass/volume)Ordered By: Tammi Frost on 10-09-2023 Urea nitrogen [Mass/Vol] 39 mg/dL 7-18 [facility] Thin prep Papanicolaou smear with manual screeningOrdered By: Tammi Frost on 10-09-2023 Thin prep Papanicolaou smear with manual screening 3 5-15 [facility] Absolute lymphocyte countOrd ered By: Anson Waite on 10-02-2023 Lymphocytes Auto (Unsp spec) [#/Vol] 0.69 10*3/uL 0.83-4.51 [facility] Automated lymphocyte count a s percentage of total leukocytesOrdered By: Anson Waite on 10-02-2023 Lymphocytes/100 WBC Auto (Unsp spec) 7.3 % 19-41 [facility] Basophil percentageOrdered B y: Anson Waite on 10-02-2023 Basophils/100 WBC (Bld) 0.2 % 0-1 [facility] Eosinophils/100 WBC (Bld) 0.6 % 0-5 [facility] Monocytes/100 WBC (Bld) 7.4 % 0-10 [facility] Neutrophils (Bld) [#/Vol] 8.0 10*3/uL 2.0-7.7 [facility] Neutrophils/100 WBC (Bld) 84.0 % 47-70 [facility] Immature granulocytes/100 WB C Auto (Bld)Ordered By: Anson Waite on 10-02-2023 Immature granulocytes/100 WBC (Bld) 0.500 % 0.0-0.9 [facility] Comment on above: IG% - Immature Granu locytes (promyelocytes, myelocytes and metamyelocytes) > 1% indicates that a LEFT SHIFT is Present. Laboratory - Hematology and Cell countsOrdered By: Anson Waite on 10-02-2023 Nucleated RBC/100 WBC (Bld) [Ratio] 0 % 0-5 [facility] Whole blood hemoglobin A1c/t otal hemoglobin ratio (mass fraction)Ordered By: Anson Waite on 10-02-2023 HbA1c (Bld) [Mass fraction] 5.4 % 3.8-5.6 [facility] Comment on above: Normal < 5.7 % Predi abetic 5.7 - 6.4 % Diabetic >or= 6.5 % Please note range changes. Basophil percentageOrdered B y: Mehdi Cabrera on 09-30-2023 Basophil percentage 3.8 mg/dL 2.5-4.9 [facility] Bilirubin [Mass/Vol] 0.60 mg/dL 0.20-1.00 [facility] Comment on above: For patients on eltr ombopag therapy, use of Dimension Breese TBIL is not recommended. Protein [Mass/Vol] 6.1 g/dL 6.4-8.2 [facility] Laboratory - Chemistry and C hemistry - challengeOrdered By: Mehdi Cabrera on 09-30-2023 Albumin/Globulin [Mass ratio] 0.9 {ratio} 0.9-2.4 [facility] ALP [Catalytic activity/Vol] 68 U/L 45-117 [facility] ALT [Catalytic activity/Vol] 23 U/L 13-56 [facility] Globulin (S) [Mass/Vol] 3.2 g/dL 2.2-4.2 [facility] Magnesium [Mass/Vol] 2.9 mg/dL 1.6-2.6 [facility] Thin prep Papanicolaou smear with manual screeningOrdered By: Anson Waite on 09-30-2023 Thin prep Papanicolaou smear with manual screening 92 mg/dL 74-106 [facility] Comment on above: MANAGEMENT OF PATIEN T CARE PER NURSING PROTOCOL Thin prep Papanicolaou smear with manual screeningOrdered By: Mehdi Cabrera on 09-30-2023 Thin prep Papanicolaou smear with manual screening 2.9 g/dL 3.2-5.0 [facility] Thin prep Papanicolaou smear with manual screening 20 U/L 15-37 [facility] Absolute lymphocyte countOrd ered By: Grant Whitley on 09-29-2023 Lymphocytes Auto (Unsp spec) [#/Vol] 1.31 10*3/uL 0.83-4.51 [facility] Automated lymphocyte count a s percentage of total leukocytesOrdered By: Grant Whitley on 09-29-2023 Lymphocytes/100 WBC Auto (Unsp spec) 19.6 % 19-41 [facility] Basophil percentageOrdered B y: Mehdi Cabrera on 09-29-2023 Cholesterol [Mass/Vol] 195 mg/dL <200 [facility] Comment on above: <200 mg/dL Desirable 200-240 mg/dL Borderline >240 mg/dL High Risk Triglyceride [Mass/Vol] 87 mg/dL <199 [facility] Comment on above: The drugs N-Acetylcy steine and Metamizole may falsely depress this assay.Serum Triglycerides Reference Interval Normal <150 mg/dL Borderline high 150 - 199 mg/dL High 200 - 499 mg/dL Very High > or = 500 mg/dL Basophil percentageOrdered B y: Grantcarlene Whitley on 09-29-2023 Basophils/100 WBC (Bld) 0.3 % 0-1 [facility] Chloride [Moles/Vol] 106 mmol/L 98-107 [facility] Eosinophils/100 WBC (Bld) 1.6 % 0-5 [facility] Glucose [Mass/Vol] 93 mg/dL 74-106 [facility] Hemoglobin (Bld) [Mass/Vol] 14.8 g/dL 12.0-15.0 [facility] Monocytes/100 WBC (Bld) 5.8 % 0-10 [facility] Neutrophils (Bld) [#/Vol] 4.8 10*3/uL 2.0-7.7 [facility] Neutrophils/100 WBC (Bld) 71.8 % 47-70 [facility] Potassium [Moles/Vol] 4.9 mmol/L 3.5-5.1 [facility] Comment on above: Moderate Hemolysis, Result may be falsely increased. Sodium [Moles/Vol] 140 mmol/L 136-145 [facility] WBC (Bld) [#/Vol] 6.7 10*3/uL 4.4-11.0 [facility] Determination of erythrocyte mean corpuscular volume (MCV)Ordered By: Grantcarlene Whitley on 09-29-2023 MCV (RBC) [Entitic vol] 94.4 fL 81-99 [facility] Erythrocyte distribution wid th ratioOrdered By: Grantcarlene Whitley on 09-29-2023 Erythrocyte distribution width (RBC) [Ratio] 15.9 % 11.6-14.6 [facility] Erythrocyte distribution wid th standard deviationOrdered By: [facility] Alexander Campuso on 09-29-2023 Erythrocyte distribution width (RBC) [Entitic vol] 55.5 fL 35.1-43.9 [facility] Hematocrit Auto (Bld) [Volum e fraction]Ordered By: Grant Whitley on 09-29-2023 Hematocrit (Bld) [Volume fraction] 45.6 % 37-47 [facility] Immature granulocytes/100 WB C Auto (Bld)Ordered By: Grant Whitley on 09-29-2023 Immature granulocytes/100 WBC (Bld) 0.900 % 0.0-0.9 [facility] Comment on above: IG% - Immature Granu locytes (promyelocytes, myelocytes and metamyelocytes) > 1% indicates that a LEFT SHIFT is Present. Laboratory - Chemistry and C hemistry - challengeOrdered By: Mehdi Cabrera on 09-29-2023 Cholesterol in HDL [Mass/Vol] 54 mg/dL >40 [facility] Comment on above: The drugs N-Acetylcy steine and Metamizole may falsely depress this assay. Reference Range HDL <40 mg/dL Low HDL Cholesterol HDL >or= 60 mg/dL High HDL Cholesterol Cholesterol in LDL [Mass/Vol] 124 mg/dL 0-130 [facility] Laboratory - Chemistry and C hemistry - challengeOrdered By: Grant Whitley on 09-29-2023 CO2 [Moles/Vol] 31.0 mmol/L 21.0-32.0 [facility] Urea nitrogen/Creatinine [Mass ratio] 36.0 mg/mg 10-20 [facility] Laboratory - Hematology and Cell countsOrdered By: Grant Whitley on 09-29-2023 MCH (RBC) [Entitic mass] 30.6 pg 27.0-32.0 [facility] MCHC (RBC) [Mass/Vol] 32.5 g/dL 32-36 [facility] Nucleated RBC/100 WBC (Bld) [Ratio] 0 % 0-5 [facility] Platelet mean volume (Bld) [Entitic vol] 9.9 fL 6.2-12.0 [facility] Platelets (Bld) [#/Vol] 314 10*3/uL 150-450 [facility] No Panel InformationOrdered By: Mehdi Cabrera on 09-29-2023 VLDL Cholesterol 17 mg/dL 5-40 [facility] No Panel InformationOrdered By: Grant Whitley on 09-29-2023 Estimated Creatinine Clearance Calc 25.84 ml/min [facility] Estimated GFR (MDRD) Amer 67 mL/min >60 [facility] Comment on above: GFR Calc Estimated GFR (MDRD) Non-Af Amer 56 mL/min >60 [facility] Comment on above: Non- GFR Calc RBC Auto (Bld) [#/Vol]Ordere d By: Grant Whitley on 09-29-2023 RBC (Bld) [#/Vol] 4.83 10*6/uL 4.2-5.4 [facility] Serum or plasma calcium clarke urement (mass/volume)Ordered By: Grant Whitley on 09-29-2023 Calcium [Mass/Vol] 9.6 mg/dL 8.5-10.1 [facility] Serum or plasma creatinine m easurement (mass/volume)Ordered By: Grant Whitley on 09-29-2023 Creatinine [Mass/Vol] 1.00 mg/dL 0.55-1.02 [facility] Comment on above: The validity of the calculated GFR & GFRAA in patients over 70 years has not been determined. Clinical correlation is essential. Serum or plasma urea nitroge n measurement (mass/volume)Ordered By: Grant Whitley on 09-29-2023 Urea nitrogen [Mass/Vol] 36 mg/dL - [facility] Thin prep Papanicolaou smear with manual screeningOrdered By: Grant Whitley on 09-29-2023 Thin prep Papanicolaou smear with manual screening 3 - [facility] Vital Signs Date Time Vital Sign Value Performing Clinician Zulmai dereje 03-20-2025 07:52-0400 Body height 160.[address] Sharif Ramos MD Work Phone: [facility] 12-17-2024 10:53-0400 Body height 160.[address] Sharif Ramos MD Work Phone: [facility] 06-18-2024 09:53-0500 Body mass index (BMI) [Ratio] 22.6 kg/m2 Dr. Viet Lovett MD Work Phone: [facility] 06-18-2024 09:53-0500 Body weight 58.[address] Viet Lovett MD Work Phone: [facility] 06-18-2024 09:53-0500 Diastolic blood pressure 58 mm[Hg] Dr. Viet Lovett MD Work Phone: [facility] 06-18-2024 09:53-0500 Heart rate 69 /min Dr. Viet Loevtt MD Work Phone: [facility] 06-18-2024 09:53-0500 Respiratory rate 16 /min Dr. Viet Lovett MD Work Phone: [facility] 06-18-2024 09:53-0500 SaO2% (BldA) [Mass fraction] 95 % Dr. Viet Lovett MD Work Phone: [facility] 06-18-2024 09:53-0500 Systolic blood pressure 104 mm[Hg] Dr. Viet Lovett MD Work Phone: [facility] 10-10-2023 09:37-0400 Body temperature 97.7 [degF] Dr. Grant Whitley Work Phone: 6(179)114-270100 [place] [address] 10-10-2023 09:37-0400 Diastolic blood pressure 55 mm[Hg] Dr. Grant Whitley Work Phone: 8(059)729-376400 [place] [address] 10-10-2023 09:37-0400 Heart rate 70 /min Dr. Grant Whitley Work Phone: 7(388)777-499700 [place] [address] 10-10-2023 09:37-0400 Respiratory rate 16 /min Dr. Grant Whitley Work Phone: 8(440)[phone] [place] [address] 10-10-2023 09:37-0400 SaO2% (BldA) [Mass fraction] 97 % Dr. Grant Whitley Work Phone: [facility] 10-10-2023 09:37-0400 Systolic blood pressure 132 mm[Hg] Dr. Grant Whitley Work Phone: 2(270)779-965600 [place] [address] 10-08-2023 15:05-0400 Body height 160.[address] Grant Whitley Work Phone: [facility] 10-08-2023 15:05-0400 Body weight 40.[address] Grant Whitley Work Phone: [facility] 10-07-2023 04:22-0400 Body mass index (BMI) [Ratio] 15.7 kg/m2 Dr. Grant Whitley Work Phone: [facility] 10-01-2023 01:28-0400 Inhaled oxygen flow rate 2 L/min Dr. Grant Whitley Work Phone: [facility] 09-29-2023 14:46-0400 Body temperature 98.1 [degF] [facility] 09-29-2023 14:46-0400 Diastolic blood pressure 70 mm[Hg] [facility] 09-29-2023 14:46-0400 Heart rate 70 /min [facility] 09-29-2023 14:46-0400 Respiratory rate 14 /min [facility] 09-29-2023 14:46-0400 SaO2% (BldA) [Mass fraction] 99 % [facility] 09-29-2023 14:46-0400 Systolic blood pressure 163 mm[Hg] [facility] 09-29-2023 12:46-0400 Body height 160.02 cm [facility] 09-29-2023 12:46-0400 Body mass index (BMI) [Ratio] 16.1 kg/m2 [facility] 09-29-2023 12:46-0400 Body weight 41.3 kg [facility] Encounters Encounter Date Encounter Type Care Provider Facility Start: 04-09-2025 ambulatory Efewongbe Oleghe OLS Fa cility:[facility] Start: 04-03-2025 End: 04-03-2025 ambulatory Efewongbe Oleghe Facility:[facility] Start: 04-01-2025 ambulatory Efewongbe Oleghe OLS Fa cility:[facility] Start: 03-17-2025 End: 03-17-2025 ambulatory Lashae Garner NP Facility:[facility] Start: 02-18-2025 ambulatory Sharif CARRENO Fa cility:[facility] Start: 02-18-2025 [facility] Start: 02-10-2025 End: 02-10-[address] Sharif Ramos MD Work Phone: [facility] Start: 02-10-2025 End: 02-10-[address] Sharif Ramos MD -[facility] Work Phone: Start: 01-21-2025 ambulatory Sharif CARRENO Fa cility:[facility] Start: 01-21-2025 [facility] Start: 01-15-2025 End: 01-15-[address] Sharif Ramos MD Work Phone: [facility] Start: 01-15-2025 End: 01-15-[address] Andrea Hawthorne MD -[facility] Work Phone: Start: 01-07-2025 End: 01-07-[address] Sharif Ramos MD Work Phone: [facility] Start: 01-07-2025 End: 01-07-2025 Patient encounter procedure Lashae Garner [facility] -[facility] Work Phone: Start: 01-07-2025 [facility] Start: 01-07-2025 End: 01-07-2025 ambulatory Sharif CARRENO Facility:[facility] Start: 12-31-2024 ambulatory Sharif CARRENO Fa cility:[facility] Start: 12-31-2024 [facility] Start: 12-16-2024 End: 12-16-[address] Sharif Ramos MD Work Phone: [facility] Start: 12-16-2024 End: 12-16-[address] Sharif Ramos MD -[facility] Work Phone: Start: 12-03-2024 ambulatory Sharif Edmondson cility:[facility] Start: 12-03-2024 Registered Referred Sharif Ramos MD [facility] Start: 11-20-2024 End: 11-20-[address] Sharif Ramos MD Work Phone: [facility] Start: 11-20-2024 End: 11-20-2024 Patient encounter procedure Jamar DE LA PAZ -[facility] Work Phone: Start: 11-05-2024 ambulatory Sharif CARRENO Fa cility:[facility] Start: 11-05-2024 Registered Referred Sharif Ramos MD [facility] Start: 10-16-2024 End: 10-16-[address] Sharif Ramos MD Work Phone: [facility] Work Phone: Start: 10-16-2024 End: 10-16-[address] Andrea Hawthorne MD -[facility] Work Phone: Start: 10-15-2024 End: 10-15-[address] Sharif Ramos MD Work Phone: [facility] Start: 10-15-2024 End: 10-15-2024 Patient encounter procedure Lashae NAM -[facility] Work Phone: Start: 10-08-2024 End: 10-08-2024 ambulatory Sharif Ramos MD [facility] Work Phone: Start: 10-08-2024 End: 10-08-2024 Departed Referred [facility] Start: 10-07-2024 End: 10-08-[address] Sharif Ramso MD Work Phone: [facility] Start: 10-07-2024 End: 10-07-[address] Sharif Ramos MD -[facility] Work Phone: Start: 09-02-2024 End: 09-02-[address] [facility] Facility:[facility] Start: 09-02-2024 End: 09-02-2024 Patient encounter procedure Lashae NAM -[facility] Work Phone: Start: 08-17-2024 End: 08-17-[address] [facility] Facility:[facility] Start: 08-17-2024 End: 08-17-[address] Andrea Hawthorne MD -[facility] Work Phone: Start: 08-13-2024 Registered Referred Sharif Ramos MD [facility] Start: 08-13-2024 End: 08-13-[address] Viet Lovett MD Work Phone: [facility] Work Phone: Start: 08-13-2024 End: 08-13-2024 [facility] Start: 08-12-2024 End: 08-13-2024 ambulatory [facility] Facility:[facility] Start: 08-12-2024 End: 08-12-[address] Sharif Ramos MD -[facility] Work Phone: Start: 07-31-2024 End: 07-31-[address] [facility] Facility:[facility] Start: 07-31-2024 End: 07-31-2024 Patient encounter procedure Jamar DE LA PAZ -[facility] Work Phone: Start: 07-09-2024 End: 07-09-2024 ambulatory Andrea Hawthorne Facility[facility] Start: 07-09-2024 End: 07-09-[address] Andrea Hawthorne MD -[facility] Work Phone: Start: 06-26-2024 ambulatory Efewzanebe Latashae OLS Fa cility:[facility] Start: 06-26-2024 [facility] Start: 06-24-2024 End: 06-24-2024 ambulatory Lashae Luxbairon FLAVORER Facility:[facility] Start: 06-24-2024 End: 06-24-2024 Patient encounter procedure Lashae Garner FLAVORER- -[facility] Work Phone: Start: 06-18-2024 End: 06-18-[address] Andrea Hawthorne MD -[facility] Work Phone: Start: 06-18-2024 End: 06-18-2024 ambulatory Efewshahram Pagane EV Facility:[facility] Start: 06-17-2024 End: 06-17-2024 ambulatory Efewongbe Oleghe OLS Facility:[facility] Start: 06-17-2024 End: 06-17-[address] Sharif Ramos MD -[facility] Work Phone: Start: 06-06-2024 ambulatory Efewongbe Oleghe OLS Fa cility:[facility] Start: 06-06-2024 [facility] Start: 05-15-2024 End: 05-15-2024 [facility] Start: 05-15-2024 End: 05-15-2024 ambulatory Efewongmike Pereiraghe EV Facility:[facility] Start: 05-07-2024 End: 05-07-2024 [facility] Start: 05-06-2024 End: 05-07-2024 ambulatory Efewongbe Randallghe OLS Facility:[facility] Start: 04-24-2024 End: 04-24-2024 ambulatory Efewongbe Oleghe OLS [place] Start: 10-09-2023 Non-patient / Non-visit Dr. Tamica Whitley Work Phone: [facility] Work Phone: Start: 10-08-2023 Non-patient / Non-visit Dr. Tamica Whitley Work Phone: [facility] Work Phone: Start: 10-07-2023 Non-patient / Non-visit Dr. Tamica Whitley Work Phone: [facility] Work Phone: Start: 10-06-2023 Non-patient / Non-visit Dr. Tamica Whitley Work Phone: [facility] Work Phone: Start: 10-05-2023 Non-patient / Non-visit Dr. Tamica Whitley Work Phone: [facility] Work Phone: Start: 10-04-2023 Non-patient / Non-visit Dr. Tamica Whitley Work Phone: [facility] Work Phone: Start: 10-03-2023 Non-patient / Non-visit Dr. Tamica Whitley Work Phone: [facility] Work Phone: Start: 10-02-2023 Non-patient / Non-visit Dr. Tamica Whitley Work Phone: [facility] Work Phone: Start: 10-01-2023 Non-patient / Non-visit Dr. Tamica Whitley Work Phone: [facility] Work Phone: Start: 10-01-2023 Non-patient / Non-visit Dr. Tamica Whitley Work Phone: [facility] Start: 10-01-2023 Non-patient / Non-visit Dr. Tamica Whitley Work Phone: [facility] Start: 09-30-2023 Non-patient / Non-visit Dr. Tamica Whitley Work Phone: [facility] Start: 09-30-2023 Non-patient / Non-visit Dr. Tamica Whitley Work Phone: [facility] Work Phone: Start: 09-29-2023 End: 10-10-2023 Evaluation and management of inpatient [facility] Work Phone: Procedures Date [...] Prosthetic uncemente d hemiarthroplasty of hip Dr. Gratn Whitley Work Phone: Start: 09-29-2023 Plain chest X-ray Start: 09-29-2023 Plain x-ray of pelvi s and lower extremity Start: 09-29-2023 Pelvis X-ray Plan of Treatment Date Care Activity Detail Author Start: 10-10-2023 Patient discharge [facility] Start: 10-04-2023 Verification routine [facility] Start: 10-02-2023 Care planning and pr oblem solving actions [facility] Start: 10-01-2023 Consultation [facility] Start: 09-30-2023 End: 09-30-2023 [facility] Start: 09-30-2023 Ambulation therapy management [facility] Start: 09-30-2023 Application of device [facility] Start: 09-30-2023 Exercises [facility] Start: 09-30-2023 Following clinical p athway protocol [facility] Start: 09-30-2023 Introduction of urin gideon catheter [facility] Start: 09-30-2023 Neurovascular assessment [facility] Start: 09-30-2023 Patient education [facility] Start: 09-30-2023 Provision of activit y privileges [facility] Start: 09-30-2023 Referral to occupati onal therapist [facility] Start: 09-30-2023 Referral to service [facility] Start: 09-30-2023 Skin care [facility] Start: 09-30-2023 Vital signs measurements [facility] Start: 09-30-2023 Wound care [facility] Start: 09-30-2023 Recommendation to co ntinue with treatment [facility] Start: 09-29-2023 Application of inter mittent pneumatic compression device [facility] Start: 09-29-2023 Following clinical p athway protocol [facility] Start: 09-29-2023 Assessment of risk o f venous thromboembolism [facility] Start: 09-29-2023 Documentation procedure [facility] Start: 09-29-2023 Incentive spirometry [facility] Start: 09-29-2023 Insertion of cathete r into peripheral vein [facility] Start: 09-29-2023 Measuring intake and output [facility] Start: 09-29-2023 Providing care accor ding to standard [facility] Start: 09-29-2023 Referral to service [facility] Start: 09-29-2023 [facility] Start: 09-29-2023 Hospital admission, emergency, from emergency room, medical nature [facility] Start: 09-29-2023 Verification routine [facility] Start: 09-29-2023 Admission procedure [facility] Start: 09-29-2023 [facility] Start: 09-29-2023 Patient referral to dietitian [facility] Patient Education Bruises (Contusions) ED Skin Tear (Skin Avulsion) [facility] Work Phone: Patient referral [facility] Work Phone: Immunizations Immunization Date Immunization Notes Care Provider Fa cility 09-29-2023 tetanus toxoid, redu jorge diphtheria toxoid, and acellular pertussis vaccine, adsorbed [facility] Payers Date Payer Category Payer Unknown [id number] 2024 Self-pay 2024 Medicaid [id number] 2024 Private Health Insurance [id number] Unknown [id number] 2.16.8 40.1.102187.3.579.2.462 Unknown [id number] 2.16.8 40.1.038056.3.579.2.462 Unknown [id number] 2.16.8 40.1.909755.3.579.2.462 Unknown [id number] 2.16.8 40.1.186764.3.579.2.462 Unknown [id number] 2.16.8 40.1.871396.3.579.2.462 Unknown [id number] 2.16.8 40.1.634524.3.579.2.462 Unknown [id number] 2.16.8 40.1.107436.3.579.2.462 Unknown [id number] 2.16.8 40.1.182470.3.579.2.462 Unknown [id number] 2.16.8 40.1.381651.3.579.2.462 Unknown [id number] 2.16.8 40.1.087799.3.579.2.462 Unknown [id number] 2.16.8 40.1.640602.3.579.2.462 Unknown [id number] 2.16.8 40.1.061250.3.579.2.462 Unknown [id number] 2.16.8 40.1.805673.3.579.2.462 Unknown [id number] 2.16.8 40.1.369592.3.579.2.462 Unknown [id number] 2.16.8 40.1.481170.3.579.2.462 Unknown [id number] 2.16.8 40.1.176666.3.579.2.462 Unknown [id number] 2.16.8 40.1.030086.3.579.2.462 Unknown [id number] 2.16.8 40.1.101373.3.579.2.462 Unknown [id number] 2.16.8 40.1.060352.3.579.2.462 Unknown [id number] 2.16.8 40.1.002260.3.579.2.462 Unknown [id number] 2.16.8 40.1.292593.3.579.2.462 Unknown [id number] 2.16.8 40.1.574175.3.579.2.462 Unknown [id number] 2.16.8 40.1.032281.3.579.2.462 Unknown [id number] 2.16.8 40.1.379740.3.579.2.462 Unknown [id number] 2.16.8 40.1.521642.3.579.2.462 Unknown [id number] 2.16.8 40.1.449535.3.579.2.462 Unknown [id number] 2.16.8 40.1.459712.3.579.2.462 Unknown [id number] 2.16.8 40.1.156135.3.579.2.462 Unknown [id number] 2.16.8 40.1.093063.3.579.2.462 Unknown [id number] 2.16.8 40.1.744822.3.579.2.462 Unknown [id number] 2.16.8 40.1.046408.3.579.2.462 Unknown [id number] 2.16.8 40.1.733334.3.579.2.462 Unknown [id number] 2.16.8 40.1.359860.3.579.2.462 Unknown [id number] 2.16.8 40.1.099428.3.579.2.462 Unknown [id number] 2.16.8 40.1.372949.3.579.2.462 Unknown [id number] 2.16.8 40.1.895955.3.579.2.462 Social History Date Type Detail Facility Start: 09-29-2023 End: 09-29-2023 Tobacco smoking status MEIS Unknown if ever smoked [facility] Start: 1935 Sex Assigned At Female [facility] Start: 06-19-2024 End: 03-20-2025 Tobacco smoking status NHIS Never smoked tobacco (finding) [facility] Start: 09-04-2024 End: 09-04-2024 Sex Female (finding) [facility] Sex Female [facility] Medical Equipment Procedure Code Equipment Code [...] uncemented hemiarthroplasty of hip Orthopaedic cement, non-antimicrobial ()[id number] FDA Start: 09-30-2023 Primary uncemented hemiarthroplasty [...] Result Facility 10-10-2023 Functional status Bathroom [employer]ile[employer] [facility] Work Phone: Mental Status Date Assessment Result Facility 10-10-2023 Cognitive function Voice/Name [facility] Work Phone: Clinical Notes 09-29-2023 to 07-09-2024 Note Date & Type Note Facility 07-09-2024 Evaluation note Diagnosis Onset Date Resolution CHF (congestive heart failure) acute July 09 10:48am 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 acute July 09 10:48am Ischemic cardiomyopathy acute F ebrurising sun 2024 10:48am [facility] Work Phone: 1(750) 973-539101-15-2025 Evaluation note* Diagnosis Onset Date Resolution Status [...] Ischemic cardiomyopathy acute F ebruary 2024 10:48am [facility] Work Phone: 1(449) 428-767205-08-2024 Consult note Author Jazmin Oliveira [facility] October 10, 2023 10:50am Note Date/Time October 10, 2023 10:50a [facility] Medical Records Department [address] [place] [address] Counseling Note - Pharmacy 10/10/23 1050 MR#: [id number] Acct: [id number] Name: SHERRIE LOZANO Rep #:[id number] : 1935 88 From: Jazmin Oliveira PCP: Dr. Viet Lovett MD Status:ADM I N Y Location: [place] [address] Pharmacy [place] Med Reconciliation Pharmacy Service has performed discharge [...] Signature (if applicable): Date CC: ~ Signed [facility] Work Phone: 1(585) 104-149405-07-2024 Progress note Author Tammi Frost [facility] October 09, 2023 4:09pm Note Date/Time October 09, 2023 4:09pm [facility] Medical Records Department [address] [place] [address] Progress Note - Hospitalist 10/09/23 2336 MR#: [id number] Acct: [id number] Name: SHERRIE LOZANO Rep #:[id number] : 1935 88 From: Tammi Frost DO PCP: Dr. 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 Patient's been medically ready for discharge since 10/04/2023. Charges/Coding Visit Charges Inpatient E&M: 39103 Subs Hosp L1 10/09/23 1602 <Electronically signed by Tammi Frost DO> Cosigner Signature (if applicable): CC: ~ Signed [facility] Work Phone: 1(500) 753-852705-06-2024 Progress note Author Tammi Frost [facility] October 08, 2023 5:12pm Note Date/Time October 08, 2023 5:12pm [facility] Medical Records Department [facility] [address] [place] [address] Progress Note - Hospitalist 10/08/23 1706 MR#: [id number] Acct: [id number] Name: SHAHEEDSHERRIE J Rep #:[id number] : 1935 88 From: Tammi Frost DO PCP: Dr. Viet Lovett MD Status:ADM I N Location: [place] RQ625-4 Reason for Visit Reason for Visit: Left hip pain status post fall Subjective Subjective Patient denies any issues currently. Unfortunately, insurance [place] of [place] and does not cover [facility]. 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 Patient's been medically ready for discharge since 10/04/2023. Charges/Coding Visit Charges Inpatient E&M: 60714 Subs Hosp L2 10/08/23 1712 <Electronically signed by Tammi Frost DO> Cosigner Signature (if applicable): CC: ~ Signed [facility] Work Phone: 1(903) 373-213105-06-2024 Discharge summary Author [facility] October 08, 2023 10:21am Note Date/Time October 08, 2023 10:21a [facility] Medical Records Department [address] [place] [address] Transfer to [facility] MR#: [id number] Acct: [id number] Name: SHERRIE LOZANO Rep #:[id number] : 1935 88 From: Tammi Frost DO PCP: Dr. Viet Lovett MD Status:ADM I N Certification of patient admission REQUIRED AT TIME OF ADMISSION. I CERTIFY THAT POST-HOSPITAL ECF SERVICES ARE REQUIRED TO BE GIVEN ON AN IN-PATIENT BASIS BECAUSE OF THE ABOVE NAMED PATIENT'S NEED FOR LONG-TERM CARE ON A CONTINUING BASIS FOR THE CONDITION(S) FOR WHICH HE/SHE WAS RECEIVING IN-PATIENT HOSPITAL SERVICES PRIOR TO HIS/HER TRANSFER TO THE [facility]. 10/08/23 1021<Electronically signed by Tammi Frost [...] Other malaise Allergies/Procedures Done in Hospital Allergies Zuuszje-QAX-LlC Reductase Inhibitor Adverse Reaction (Mild, Verified 09/29/23 [...] Waite MD; Dr. Viet Lovett MD ~ [facility] Work Phone: 1(776) 169-875605-05-2024 Progress note Author Joon [facility] October 07, 2023 12:45pm Note Date/Time October 07, 2023 11:16a [facility] Medical Records Department [address] [place] [address] Progress Note - Hospitalist 10/07/23 1115 MR#: [id number] Acct: [id number] Name: SHERRIE LOZANO Rep #:[id number] : 1935 88 From: Joon garcía DO PCP: Dr. Viet Lovett MD Status:ADM I N Location: [place] [address] Reason for Visit Reason for Visit: Diagnoses [...] 10/02/23 12:07 RMA (Rec: 10/02/23 12:08 RMA [id number]) Nutrition Malnutrition Evidence of Malnutrition Exists Yes [...] Patient is an 88-year-old female who presented [facility] ED on 09/29/2023 after a fall [...] management following. Lives in assisted living side [facility], planning for discharge [facility] [...] 25 minutes. Charges/Coding Visit Charges Inpatient E&M: 44036 Subs Hosp L1 10/07/23 1245 <Electronically signed by Joon Yuen DO> Cosigner Signature (if applicable): CC: ~ Signed [facility] Work Phone: 1(661) 522-889905-04-2024 Progress note Author Joon [facility] October 06, 2023 11:01am Note Date/Time October 06, 2023 9:30am [facility] Medical Records Department [address] [facility] [place] [address] Progress Note - Hospitalist 10/06/23 0930 MR#: [id number] Acct: [id number] Name: SHERRIE LOZANO Rep #:[id number] : 1935 88 From: Joon garcía DO PCP: Dr. Viet Lovett MD Status:ADM I N Location: [place] [address]-1 Reason for Visit Reason for Visit: Diagnoses [...] 10/02/23 12:07 RMA (Rec: 10/02/23 12:08 RMA [id number]) Nutrition Malnutrition Evidence of Malnutrition Exists Yes [...] Patient is an 88-year-old female who presented [facility] ED on 09/29/2023 after a fall [...] management following. Lives in assisted living side [facility], planning for discharge to SNF side there, [...] 25 minutes. Charges/Coding Visit Charges Inpatient E&M: 58037 Subs Hosp L1 10/06/23 1101 <Electronically signed by Joon Yuen DO> Cosigner Signature (if applicable): CC: ~ Signed [facility] Work Phone: 1(830) 858-345305-03-2024 Progress note Author Joon eun [facility] October 05, 2023 1:37pm Note Date/Time October 05, 2023 1:37pm [facility] Medical Records Department [address] [place] [address] Progress Note - Hospitalist 10/05/23 1335 MR#: [id number] Acct: [id number] Name: SHERRIE LOZANO Rep #:[id number] : 1935 88 From: Joon Tyron garcía DO PCP: Dr. Viet Lovett MD Status:ADM I N Location: [address] Reason for Visit Reason for Visit: [...] 10/02/23 12:07 RMA (Rec: 10/02/23 12:08 RMA [id number]) Nutrition Malnutrition Evidence of Malnutrition Exists Yes [...] Patient is an 88-year-old female who presented [facility] ED on 09/29/2023 after a fall [...] following. Lives in assisted living side of [facility], planning for discharge to SNF side [...] 25 minutes. Charges/Coding Visit Charges Inpatient E&M: 08663 Subs Hosp L1 10/05/23 9054 <Electronically signed by Joon Mosteller DO> Cosigner Signature (if applicable): CC: ~ Signed [facility] Work Phone: 1(842) 118-152905-02-2024 Progress note Author Joon Yuen [facility] October 04, 2023 6:56pm Note Date/Time October 04, 2023 1:47pm [facility] Medical Records Department [address] [place] [address] Progress Note - Hospitalist 10/04/23 1347 MR#: [id number] Acct: [id number] Name: SHERRIE LOZANO Rep #:[id number] : 1935 88 From: Joon garcía DO PCP: Dr. Viet Lovett MD Status:ADM I N Location: [place] 637515-1 Reason for Visit Reason for Visit: Diagnoses [...] place. Patient currently resides with her at [facility] in the assisted living side. Current plan is for patient to discharge to [facility] side of [facility] once the insurance issues have been [...] 10/02/23 12:07 RMA (Rec: 10/02/23 12:08 RMA [id number]) Nutrition Malnutrition Evidence of Malnutrition Exists Yes [...] Patient is an 88-year-old female who presented [facility] ED on 09/29/2023 after a fall [...] following. Lives in assisted living side of [facility], planning for discharge to [facility] side there. Medically ready for discharge on [...] 35 minutes. Charges/Coding Visit Charges Inpatient E&M: 27085 Subs Hosp L2 10/04/23 3481 <Electronically signed by Joon Yuen DO> Cosigner Signature (if applicable): CC: ~ Signed [facility] Work Phone: 1(419) 923-448305-01-2024 Progress note Author Anson Waite [facility] October 03, 2023 1:28pm Note Date/Time October 03, 2023 1:20pm [facility] Medical Records Department [address] [place] [address] Progress Note - Hospitalist 10/03/23 1315 MR#: [id number] Acct: [id number] Name: SHERRIE LOZANO Rep #:[id number] : 1935 88 From: Anson Pritchard PCP: Dr. Viet Lovett MD Status:ADM I N Location: [place] [address] Reason for Visit Reason for Visit: Diagnoses [...] 10/02/23 12:07 RMA (Rec: 10/02/23 12:08 RMA [id number]) Nutrition Malnutrition Evidence of Malnutrition Exists Yes [...] PLAN: Plan 88-year-old female was admitted to [facility] floor after she lost her balance, [...] Has Drake catheter. Give Tylenol prn for tfhr-ux-wbdbxxuf (level 1-5/10) pain or fever. Give Morphine [...] 30%. No documentation available. 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 [...] EDT , Charges/Coding Visit Charges Inpatient E&M: 46090 Subs Hosp L2 10/03/23 1328 <Electronically signed by Anson Waite MD> Cosigner Signature (if applicable): CC: ~ Signed [facility] Work Phone: 1(268) 513-794804-30-2024 Progress note Author Anson Waite [facility] October 02, 2023 1:43pm Note Date/Time October 02, 2023 1:3 7pm [facility] Medical Records Department [address] [place] [address] Progress Note - Hospitalist 10/02/23 1335 MR#: [id number] Acct: [id number] Name: SHERRIE LOZANO Rep #:[id number] : 1935 88 From: Anson Pritchard PCP: Dr. Viet Lovett MD Status:ADM I N Location: [place] [address] Reason for Visit Reason for Visit: Diagnoses [...] 10/02/23 12:07 RMA (Rec: 10/02/23 12:08 RMA [id number]) Nutrition Malnutrition Evidence of Malnutrition Exists Yes [...] 84.0 H, Lymph % (Auto) 7.3 L, Ingham % (Auto) 7.4, Eos % (Auto) 0.6, [...] PLAN: Plan 88-year-old female was admitted to [facility] floor after she lost her balance, [...] Has Drake catheter. Give Tylenol prn for xfvx-gg-ckxnjpth (level 1-5/10) pain or fever. Give Morphine [...] 30%. No documentation available. 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 [...] 13:37 EDT Reading Location ID and State: [facility] / [place] , Service support , Charges/Coding Visit Charges Inpatient E&M: 53486 Subs Hosp L2 10/02/23 1343 <Electronically signed by Anson Waite MD> Cosigner Signature (if applicable): CC: ~ Signed [facility] Work Phone: 1(847) 112-947804-29-2024 Progress note Author Anson [facility] October 01, 2023 4:41pm Note Date/Time October 01, 2023 4:4 1pm [facility] Medical Records Department [address] [place] [address] Progress Note - Hospitalist 10/01/23 1632 MR#: [id number] Acct: [id number] Name: SHERRIE LOZANO Rep #:[id number] : 1935 88 From: Anson Pritchard PCP: Dr. Viet Lovett MD Status:ADM I N Location: [place] [address] Reason for Visit Reason for Visit: Diagnoses [...] 09/30/23 15:18 RMA (Rec: 09/30/23 15:18 RMA [id number]) Nutrition Malnutrition Evidence of Malnutrition Exists Yes [...] 83.6 H, Lymph % (Auto) 6.6 L, Ingham % (Auto) 9.1, Eos % (Auto) 0.0, [...] PLAN: Plan 88-year-old female was admitted to [facility] floor after she lost her balance, [...] Has Drake catheter. Give Tylenol prn for sxtt-rl-fkzsfcmm (level 1-5/10) pain or fever. Give Morphine [...] 30%. No documentation available. 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 [...] 83.6 H, Lymph % (Auto) 6.6 L, Ingham % (Auto) 9.1, Eos % (Auto) 0.0, [...] EDT , Charges/Coding Visit Charges Inpatient E&M: 12189 Subs Hosp L2 10/01/23 1641 <Electronically signed by Anson Waite MD> Cosigner Signature (if applicable): CC: ~ Signed [facility] Work Phone: 1(637) 409-737904-29-2024 Progress note Author [facility] October 01, 2023 11:45am Note Date/Time October 01, 2023 11: 45am [facility] Medical Records Department [address] [place] [address] Progress Note - Orthopedic 10/01/23 1142 MR#: [id number] Acct: [id number] Name: SHERRIE LOZANO Rep #:[id number] : 1935 88 From: Amol Saenz PCP: Dr. Viet Lovett MD Status:ADM I N Location: [place] [address] Subjective Subjective Seen and examined. Pain controlled [...] 09/30/23 15:18 RMA (Rec: 09/30/23 15:18 RMA [id number]) Nutrition Malnutrition Evidence of Malnutrition Exists Yes [...] 83.6 H, Lymph % (Auto) 6.6 L, Ingham % (Auto) 9.1, Eos % (Auto) 0.0, [...] 13:37 EDT Reading Location ID and State: [address] [place] [address] , Service support , Physical Exam Const [...] wound check if patient is at a [facility] rehab or TCU I am happy to see her there instead. Call with any questions or concerns 10/01/23 1145 <Electronically signed by Amol Yoder DO> Cosigner Signature (if applicable): CC: ~ Signed [facility] Work Phone: 1(681) 682-140904-28-2024 Progress note Author Anson Waite [facility] September 30, 2023 12:41pm Note Date/Time September 30, 2023 7:5 4am [facility] Medical Records Department [address] [place] [address] Progress Note - Hospitalist 09/30/23 0752 MR#: [id number] Acct: [id number] Name: SHERRIE LOZANO Rep #:[id number] : 1935 88 From: Anson Pritchard PCP: Dr. Viet Lovett MD Status:ADM I N Location: [place] [address] Reason for Visit Reason for Visit: Diagnoses [...] (Auto) 71.8 H, Lymph % (Auto) 19.6, Ingham % (Auto) 5.8, Eos % (Auto) 1.6, [...] 77.8 H, Lymph % (Auto) 12.0 L, Ingham % (Auto) 7.9, Eos % (Auto) 1.3, [...] 13:16 EDT Reading Location ID and State: [facility] / [place] , Service support , Chest X-Ray 09/29/23 14:25 IMPRESSION: Cardiac enlargement. No focal infiltrate. Electronically Signed: Enrrique Carty MD at 14:48 EDT Reading Location ID and State: [address] [place] [address] , Service support , Hip/Pelvis X-Ray 09/29/23 14:25 IMPRESSION: Left femoral neck fracture. Electronically Signed: Enrrique Carty MD at 14:49 EDT Reading Location ID and State: [facility] / [place] , Service support , Physical Exam Narrative [...] PLAN: Plan 88-year-old female was admitted to [facility] floor after she lost her balance, [...] Has Drake catheter. Give Tylenol prn for cloj-hn-eiivjqlk (level 1-5/10) pain or fever. Give Morphine [...] heart failure as per history from [facility], Dr. Júnior Hays which states he has EF about 30%. No documentation available. 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 [...] (Auto) 71.8 H, Lymph % (Auto) 19.6, Ingham % (Auto) 5.8, Eos % (Auto) 1.6, [...] 77.8 H, Lymph % (Auto) 12.0 L, Ingham % (Auto) 7.9, Eos % (Auto) 1.3, [...] 14:48 EDT Reading Location ID and State: [address] [place] [address] , Service support , Hip/Pelvis X-Ray 09/29/23 14:25 IMPRESSION: Left femoral neck fracture. Electronically Signed: Enrrique Carty MD at 14:49 EDT Reading Location ID and State: [address] [place] [address] , Service support , Charges/Coding Addendum Addendum: [...] is 40 minutes. Visit Charges Inpatient E&M: 36654 Subs Hosp L3 09/30/23 1241 <Electronically signed by Anson Waite MD> Cosigner Signature (if applicable): CC: ~ Signed [facility] Work Phone: 1(468) 692-658204-28-2024 Procedure [facility] 09-30-2023 Consult [facility] 30, 2023 10:49am Note Date/Time September 30, 2023 10: 49am [facility] Medical Records Department [address] [place] [address] Consultation 09/30/23 1046 MR#: [id number] Acct: [id number] Name: SHERRIE LOZANO Rep #:[id number] : 1935 88 From: Amol Yoder DO PCP: Dr. Viet Lovett MD Status:ADM I N Location: [place] 637515-1 Assessment & Plan Assessment/Plan (1) Fracture of [...] ambulator with walker who lives with [facility] who presents after ground-level fall where her knee buckled landing ontoher left hip immediately had significant groin pain and inability ambulate x-rays taken in the emergency room department demonstrated displaced femoral neck fracture. [facility] Medical History Brain bleed CHF (congestive [...] Type Severity Reaction Status Date / Time Etnvipp-FIB-ZxE Reductase AdvReac Mild muscle Verified 09/29/23 12:42 [...] (Auto) 71.8 H, Lymph % (Auto) 19.6, Ingham % (Auto) 5.8, Eos % (Auto) 1.6, [...] 77.8 H, Lymph % (Auto) 12.0 L, Ingham % (Auto) 7.9, Eos % (Auto) 1.3, [...] applicable): CC: Dr. Viet Lovett MD~ Signed [facility] Work Phone: 1(481) 947-164404-27-2024 History and physical note Author Mehdi Cabrera [facility] September 29, 2023 6:39pm Note Date/Time September 29, 2023 2:2 7pm [facility] Medical Records Department [address] [place] [address] H&P Exam - Hospitalist 09/29/23 1407 MR#: [id number] Acct: [id number] Name: SHERRIE LOZANO Rep #:[id number] : 1935 88 From: Mehdi Lundy DO PCP: Dr. Viet Lovett MD Status:ADM I N Location: [facility] [place]-8 HPI - General General Date of Admission: 09/29/23 Date of Service: 09/29/23 Chief Complaint: Fall with Left Hip Fracture. 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 In the ER her X-rays were positive for a Left femoral neck fracture with clinical evidenceof Left lateral elbow skin tears x 2 and she was then admitted to the general medical floor for ongoing care for a stay that is expected to be greater than 48hours. [facility] Medical History Brain bleed CHF (congestive [...] Type Severity Reaction Status Date / Time Ckdeiwj-HTE-UqC Reductase AdvReac Mild muscle Verified 09/29/23 12:42 [...] - Admit to general medical floor. Place [facility] keep on strict bedrest. Give Tylenol prn for lwsu-fi-adbngeto (level 1-5/10) pain or fever. Give Morphine [...] 55 minutes. Charges/Coding Visit Charges Inpatient E&M: 81081 Init Hosp L2 09/29/239 <Electronically signed by Mehdi Crespo DO> Cosigner Signature (if applicable): CC: Dr. Mehdi Crespo DO; Dr. Viet Lovett MD~ Signed [facility] Work Phone: 1(450) 300-911304-27-2024 Discharge summary Author Grant Whitley [facility] September 29, 2023 2:48pm Note Date/Time September 29, 2023 12: 49pm [facility] Medical Records Department [address] [place] [address] Emergency Department Summary 09/29/23 MR#: [id number] Acct: [id number] Name: SHERRIE LOZANO Rep #:[id number] : 1935 88 From: Grant Whitley MD PCP: Dr. Viet Lovett MD Status:ADM I N Location: [place] 637515-1 HPI HPI - Fall History of Present [...] woman. She and her recently moved from [place]. She grew up in [place]. They are returning to a assisted living facility. She states she did not hit her head. She denies neck pain. She denies left or right upper extremity pain. She denies pain in her right ankle, knee or hip. She denies headache. Denies visual, ocular auditory symptoms. She denies cardiac or respiratory symptoms. Tetanus Immunization: Unknown Prior similar symptoms: No Recent Illness/Hospitalization: No PFSH PFS Medical History (Updated 09/29/23 @ 13:[address] Grant Whitley MD) Brain bleed CHF (congestive heart failure) Fall Presence of combination internal cardiac defibrillator (ICD) and pacemaker Allergy/AdvReac Type Severity Reaction Status Date / Time Wvtbypw-ROK-LvV Reductase AdvReac Mild muscle Verified 09/29/23 12:42 [...] problems, contact your Primary Care Provider. Call [employer] [facility] ([phone]) or report to the closest Emergency Room. [...] cc: Dr. Viet Lovett MD ~* Signed [facility] Work Phone: 1(271) 716-414604-27-2024 Discharge summary Author Grant Whitley [facility] September 29, 2023 2:48pm Note Date/Time September 29, 2023 12: 49pm [facility] Medical Records Department [address] [place] [address] Emergency Department Summary 09/29/23 MR#: [id number] Acct: [id number] Name: SHERRIE LOZANO Rep #:[id number] : 1935 88 From: Grant Whitley MD PCP: Dr. Viet Lovett MD Status:ADM I N Location: [place] [address] HPI HPI - Fall History of Present [...] woman. She and her recently moved from [place]. She grew up in [place]. They are returning to a assisted living facility. She states she did not hit her head. She denies neck pain. She denies left or right upper extremity pain. She denies pain in her right ankle, knee or hip. She denies headache. Denies visual, ocular auditory symptoms. She denies cardiac or respiratory symptoms. Tetanus Immunization: Unknown Prior similar symptoms: No Recent Illness/Hospitalization: No [facility] Medical History (Updated 09/29/23 @ 13:[address] Grant Whitley MD) Brain bleed CHF (congestive heart failure) Fall Presence of combination internal cardiac defibrillator (ICD) and pacemaker Allergy/AdvReac Type Severity Reaction Status Date / Time Begegms-NUC-JmK Reductase AdvReac Mild muscle Verified 09/29/23 12:42 [...] your Primary Care Provider. Call [facility] ([phone]) or report to the closest Emergency Room. [...] MD> Cosigner Signature (if applicable): cc: Dr. Vite Lovett MD ~* Signed ADDENDUM by Dr. [...] cc: Dr. Viet Lovett MD ~* Signed [facility] Work Phone: Evaluation note* Diagnosis Onset Date Resolution Status Contusion of pelvic region a cute Fracture of femoral neck, left, closed acute Injury due to fall acute ISTAP type 3 skin tear of left elbow acute [facility] Work Phone: Evaluation note* Diagnosis Onset [...] pacemaker acute S/P hip hemiarthroplasty acu te [facility] Work Phone: Evaluation noteNo assessment information available [facility] Work Phone: Reason for referral (narrative)No reason for referral information availableOhio[facility] Work Phone: Chief Complaint and Reason [...] Date LABWORK May 07, 2024 5 :10am LONG-TERM LAB WORK May 15 5:00am LONG-TERM LAB WORK June 06, 2024 5:00am MONTHLY EXAM June 17, 2024 4 :00pm ESTABLISH (WVM) June 18, 2024 1 :04pm NEW CONCERN June 24, 2024 9 :42am LONG-TERM LAB WORK June 26, 2024 5:00am Pacer Check Remote July 09, 2024 9 :00am NEW ENROLEE (SCANNED) July 09, 2024 10:48am MONTHLY EXAM July 31, 2024 9:35am MONTHLY EXAM August 12, 2024 3:1 5pm LONG-TERM LAB WORK August 13, 2024 5 :00am LONG-TERM LAB WORK August 13, 2024 6 :30am [...] MONTHLY EXAM August 12, 2024 3:1 5pm LONG-TERM LAB WORK August 13, 2024 5 :00am LONG-TERM LAB WORK August 13, 2024 6 :30am [...] MONTHLY EXAM August 12, 2024 3:1 5pm LONG-TERM LAB WORK August 13, 2024 5 :00am LONG-TERM LAB WORK August 13, 2024 6 :30am [...] Monthly Exam December 16, 2024 4:06 pm LONG-TERM LAB WORK December 31, 2024 5: 00am [...] Monthly Exam December 16, 2024 4:06 pm LONG-TERM LAB WORK December 31, 2024 5: 00am LONG-TERM LAB WORK January 07, 2025 5 :00am MONTHLY NOTE January 07, 2025 4:5 7pm Pacer Check Remote January 15, 2025 2: 00am Chief Complaint Admit Date LABWORK December 03, 2024 5:00a m Monthly Exam December 16, 2024 4:06 pm LONG-TERM LAB WORK December 31, 2024 5: 00am LONG-TERM LAB WORK January 07, 2025 5 :00am MONTHLY NOTE January 07, 2025 4:5 7pm Pacer Check Remote January 15, 2025 2: 00am LONG-TERM LAB WORK January 21, 2025 5:00am MONTHLY EXAM February 10, 2025 2:58pm LONG-TERM LAB WORK February 18 5:25am Advance Directives No Advanced Directives Records Found Advance Directive Response Recorded Date/ Time Living Will Yes September 29, 2023 12:43pm Power of Jig Bore Tool Maker Yes September 28 12:43pm Name of Medical Power of Jig Bore Tool Maker Archana bullard September 29, 2023 12:43pm Advance Directive Response Recorded Date/ Time Name of Medical Power of Jig Bore Tool Maker Archana bullard September 29, 2023 3:25pm Living Will Yes September 29, 2023 3:25pm Power of Jig Bore Tool Maker Yes September 28 3:25pm Summary Purpose Family [...] Mehdi Crespo DO Admit Provider, Attending Pr ovid Active Team Status: Active Member Role Status [...] 2024 End: June 24, 2024 Lashae Garner FLAVORER, FLAVORER-C Attending Provider Active Start: June 24, 2024 [...] 2024 End: September 02, 2024 Lashae Garner FLAVORER, FLAVORER-C Attending Provider Active Start: September 02, 2024 [...] 2024 End: September 02, 2024 Lashae Garner FLAVORER, FLAVORER-C Attending Provider Active Start: September 02, 2024 [...] 2024 End: October 15, 2024 Lashae Garner FLAVORER, FLAVORER-C Attending Provider Active Start: October 15, 2024 [...] 2024 End: October 15, 2024 Lashae Garner FLAVORER, FLAVORER-C Attending Provider Active Start: October 15, 2024 [...] 2025 End: January 07, 2025 Lashae Garner FLAVORER, FLAVORER-C Attending Provider Active Start: January 07, 2025 [...] 2025 End: January 07, 2025 Lashae Garner FLAVORER, FLAVORER-C Attending physician Active Start: January 07, 2025 End: January 07, 2025 Team Status: Inactive Member Role/Relationship Status Dates Dr. Sharif Ramos MD Primary care physician Activ e Start: January 15, 2025 End: January 15, 2025 Dr. nAdrea Hawthorne MD Attending physician Active Start: January [...] section and content) DATE CREATED AUTHOR 04/16/2025 [facility] FOR RECORDS PERTAINING TO PATIENTS WHO ARE [...] BE BASED ON THE PRIMARY CLINICAL RECORDS. [facility]. provides no warranty or guarantee of the accuracy or completeness of information in this document.
[2025-05-18 07:59] LABS: Vitamin D,25 Hydroxy 36.8 ng/mL (30-100)
== END ==
LOC: OLS.WHLEAS 04:00
PROVIDERS: PCP Internal Medicine; Referring Provider Internal Medicine; Visit Provider Internal Medicine
DX: I50.22 Chronic systolic (congestive) heart failure (principal); E11.22 Type 2 diabetes mellitus with diabetic chronic kidney disease; N18.32 Chronic kidney disease, stage 3b; I49.9 Cardiac arrhythmia, unspecified; I42.9 Cardiomyopathy, unspecified; E55.9 Vitamin D deficiency, unspecified
CPT/HCPCS: 36415; 82306